=== PATIENT | female | born 1955 | race Caucasian/White ===

== ENCOUNTER 2023-06-01 14:45 | Outpatient (AMB) | payer MEDICARE, SELFPAY ==
--- NOTE | 2023-06-01 15:02 | A.OFFVIS_ITS ---
Intake Intake Visit Reasons: COPD/Pulm Nodules Allergies Penicillins [PENICILLINS] Allergy (Unknown, Unverified 04/26/20 16:55) ITCHING HPI HPI Comments History of Present Illness Details The patient is here for pulmonary evaluation. The patient is a 68 year woman who is an active smoker with the history of COPD and also pulmonary nodules. Apparently the patient was evaluated I believe to the lung cancer screening program back in 2019 in the beginning of the pandemic and she had pulmonary nodules noted. At some point the pulmonary nodules increase in size and the patient is referred to both Oncology and Pulmonary. She did undergo a PET scan. She was concern for the possibility of metastatic disease. Therefore she became depressed and she started smoking more cigarettes. The patient ultimately followed up with additional imaging studies and it appeared that allow the nodules had subsided and therefore this is less likely metastatic disease. Although the etiology still unclear. She did have recent imaging studies last CT scan was in the summer of 2022 although I do not have those reports. Will have to request or CT scans and ideally the films she in a CD that we can visualize the abnormalities. She also continues to smoke cigarettes. She is cutting down. She does fluctuate. We did talk about her COPD in her chronic bronchitis and how this is also contributing to her symptoms. The patient is willing to try nicotine patch at this time she knows not to smoke cigarettes while on the nicotine patch. She also has a history of sleep apnea. The patient did have a CPAP in the past. She does have fatigue during the daytime and daytime drowsiness. Will be reasonable to order a sleep study at this time to better address her underlying degree of sleep apnea in view of her daytime drowsiness and her cardiovascular risk factors. [facility] Medical History (Updated 06/01/23 @ 22:50 by Kenney Saini MD) Thyroid cancer ANA (obstructive sleep apnea) Smoking Pulmonary nodules COPD (chronic obstructive pulmonary disease) Review of Systems Const Reports daytime sleepiness, Reports difficulty sleeping, Denies fever(s) and Reports snoring Eyes Reports no additional complaints ENT Reports nasal congestion Card Denies chest pain and Reports dyspnea on exertion Resp Reports cough, Reports dyspnea on exertion, Reports snoring and Denies wheezing GI Reports no additional complaints Musc Reports no additional complaints Skin/Breast Denies rash Neuro Reports no additional complaints Psych Reports abnormal sleep pattern Narayan/Lymph Denies lymphadenopathy Aller/Immun Denies wheezing Physical Exam Const General: comfortable HEENT Head: Yes normocephalic Neck Neck: Yes supple Chest Chest palpation & inspection: normal inspection of the chest Resp Effort & Inspection: normal respiratory effort and prolonged expiratory phase Auscultation: diminished lung sounds Cardio Heart sounds: S1 normal heart sound present and S2 normal heart sound present GI Palpation (GI): Soft to palpation Skin General skin exam: no rashes or lesions noted Extrem General: Yes no clubbing, cyanosis or edema Assessment & Plan Assessment & Plan (1) COPD (chronic obstructive pulmonary disease): Code(s): J44.9 - Chronic obstructive pulmonary disease, unspecified Qualifiers: COPD type: chronic bronchitis Chronic bronchitis type: simple Qualified Code(s): J41.0 - Simple chronic bronchitis (2) Pulmonary nodules: Code(s): R91.8 - Other nonspecific abnormal finding of lung field (3) Smoking: Code(s): F17.200 - Nicotine dependence, unspecified, uncomplicated (4) ANA (obstructive sleep apnea): Code(s): G47.33 - Obstructive sleep apnea (adult) (pediatric) Plan requesting CT chest and PET scan images from [facility] Start Airduo (goodrx) JOVITA as needed Home PSG tobacco cessation: nicotene patch 14mg F/U 2-3 months Medications: New nicotine (Nicoderm CQ) 1 patch transdermal DAILY 28 days 28 ea 5RF fluticasone propion-salmeterol 113-14 mcg/actuation (AirDuo RespiClick) 1 inh inhalation Q12H 30 days 1 ea 11RF Coding Level of Care Code New Pt Level 4 (10823) Diagnoses Simple chronic bronchitis J41.0 COPD type: chronic bronchitis Chronic bronchitis type: simple Pulmonary nodules R91.8 Smoking F17.200 ANA (obstructive sleep apnea) G47.33 Time Spent (min) 45
== END 2023-06-01 15:44 | disposition home or self-care (01) ==
PROVIDERS: PCP Nurse Practitioner Family; Referring Provider Physician Assistant; Visit Provider Hospitalist
DX: J41.0 Simple chronic bronchitis (principal); R91.8 Other nonspecific abnormal finding of lung field; F17.200 Nicotine dependence, unspecified, uncomplicated; G47.33 Obstructive sleep apnea (adult) (pediatric)
CPT/HCPCS: 99204

== ENCOUNTER → 2023-06-01 14:45 | Outpatient (BNVA) | payer OTHER, MEDICARE, SELFPAY | PROVIDERS: PCP Nurse Practitioner Family; Visit Provider Hospitalist ==

== ENCOUNTER 2023-08-11 13:57 | Outpatient (AMB) | payer OTHER, SELFPAY ==
--- NOTE | 2023-08-11 14:36 | MHC.OFFVIS ---
Intake Vital Signs 08/11/23 14:40 Height 5 ft 3 in Weight 110 lb BMI 19.5 Pulse 50 Pulse Source Pulse Oximeter Pulse Oximetry (%) 95 Oxygen Delivery Method Room Air Intake Visit Reasons: COPD/Pulm Nodules Soaking Room Operator Required: No Allergies Penicillins [PENICILLINS] Allergy (Unknown, Unverified 08/11/23 14:36) ITCHING HPI HPI Comments History of Present Illness Details The patient is a 68 year woman who is an active smoker with the history of COPD and also pulmonary nodules. Apparently the patient was evaluated I believe to the lung cancer screening program back in 2019 in the beginning of the pandemic and she had pulmonary nodules noted. At some point the pulmonary nodules increase in size and the patient is referred to both Oncology and Pulmonary. She did undergo a PET scan. She was concern for the possibility of metastatic disease. Therefore she became depressed and she started smoking more cigarettes. The patient ultimately followed up with additional imaging studies and it appeared that allow the nodules had subsided and therefore this is less likely metastatic disease. Although the etiology still unclear. She did have recent imaging studies last CT scan was in the summer of 2022 although I do not have those reports. Will have to request or CT scans and ideally the films she in a CD that we can visualize the abnormalities. She also continues to smoke cigarettes. She is cutting down. She does fluctuate. We did talk about her COPD in her chronic bronchitis and how this is also contributing to her symptoms. The patient is willing to try nicotine patch at this time she knows not to smoke cigarettes while on the nicotine patch. She also has a history of sleep apnea. The patient did have a CPAP in the past. She does have fatigue during the daytime and daytime drowsiness. Will be reasonable to order a sleep study at this time to better address her underlying degree of sleep apnea in view of her daytime drowsiness and her cardiovascular risk factors. 08/11/2023 the patient is here for a pulmonary follow-up visit. Overall the patient is doing well from a pulmonary standpoint. She does complaint of significant lower extremity pain and Courtney horses. I did explain to her that it could be medication related such as beta agonists findings of a her inhalers can result in potassium chips that can result in muscle spasms. She sometimes twitches overt sometimes uses lab Trelegy or Breo that she may have left over. I did advise her to hold all meds for we can see there is any improvement in her symptoms. Otherwise if she does need to take the inhaler she can try potassium rich foods such as orange or bananas to see if this provides some relief. If not she can also ask her primary care doctor about other medications that she takes such as her Lipitor that can also cause muscle discomfort. The patient did have a CT scan of the chest to the lung cancer screening program which we personally reviewed. It appears that she has pulmonary nodules but the largest nodules actually decreased in size which is reassuring. Her rads score was read as to which is reassuring. She has multiple nodules but they are stable and show have a follow-up CT scan in a year's time. This is concerning to her because at 1 point she was told she had metastatic disease and she was very concerned about that. I did reassure that does not appear to be any worsening of the nodules. She still continues to smoke cigarettes. She does have a quit date and she is hoping to quit altogether. I did encourage her to do so specially with her ongoing symptoms. [facility] Medical History (Updated 08/11/23 @ 20:39 by Kenney Saini MD) Thyroid cancer ANA (obstructive sleep apnea) Smoking Pulmonary nodules COPD (chronic obstructive pulmonary disease) Social History (Updated 08/11/23 @ 14:42 by LUCINA Summers) Patient Tobacco Use Status: Current everyday Tobacco user Tobacco use type: Cigarette Review of Systems Const Reports daytime sleepiness, Reports difficulty sleeping, Denies fever(s) and Reports snoring Eyes Reports no additional complaints ENT Reports nasal congestion Card Denies chest pain and Reports dyspnea on exertion Resp Reports cough, Reports dyspnea on exertion, Reports snoring and Denies wheezing GI Reports no additional complaints Musc Reports no additional complaints Skin/Breast Denies rash Neuro Reports no additional complaints Psych Reports abnormal sleep pattern Narayan/Lymph Denies lymphadenopathy Aller/Immun Denies wheezing Physical Exam Vital Signs: Last Vital Signs Pulse 50 08/11/23 14:40 Pulse Ox 95 08/11/23 14:40 Oxygen Delivery Method Room Air 08/11/23 14:40 BMI result Body Mass Index 19.5 Const General: comfortable HEENT Head: Yes normocephalic Neck Neck: Yes supple Chest Chest palpation & inspection: normal inspection of the chest Resp Effort & Inspection: normal respiratory effort and prolonged expiratory phase Auscultation: diminished lung sounds Cardio Heart sounds: S1 normal heart sound present and S2 normal heart sound present GI Palpation (GI): Soft to palpation Skin General skin exam: no rashes or lesions noted Extrem General: Yes no clubbing, cyanosis or edema Immunizations pneumoc 20-cherry conj-dip cr(PF) 0.5 mL IM syringe Performing Provider: Kenney Saini MD Performing Location: [facility] Administered by: Quiana Chew LPN on 08/11/23 15:09 Dose Route Admin Location Dispensed Lot Number Expiration Date [employer] 0.5 mL IM Left Deltoid 0.5 mL [id number] 03/09/24 7452-2720-98 [employer]/PFIZER VIS Given Date VIS Provided VIS Publication Date 08/11/23 Single Vaccine 22 Eligibility Eligibility Date Funding Source Not [facility] Eligible 08/11/23 Private Assessment & Plan Assessment & Plan (1) COPD (chronic obstructive pulmonary disease): Code(s): J44.9 - Chronic obstructive pulmonary disease, unspecified Qualifiers: COPD type: chronic bronchitis Chronic bronchitis type: simple Qualified Code(s): J41.0 - Simple chronic bronchitis (2) Pulmonary nodules: Comment: 2022-LDCT RADS 2 Code(s): R91.8 - Other nonspecific abnormal finding of lung field (3) Smoking: Code(s): F17.200 - Nicotine dependence, unspecified, uncomplicated (4) ANA (obstructive sleep apnea): Code(s): G47.33 - Obstructive sleep apnea (adult) (pediatric) Plan holding Airduo (goodrx), monitor muscle spasms. If symptoms persists, needs to have an evaluation from her PCP regarding the muscle pain and muscle spasms JOVITA as needed Home PSG tobacco cessation: nicotene patch 14mg LDCT 04/24/2023 RADS 2 F/U 6 months Orders: Orders Pneumococcal 20 Immunization Today Z23 - Encounter for immunization Coding Level of Care Code Est Pt Level 4 (24938) Diagnoses Simple chronic bronchitis J41.0 COPD type: chronic bronchitis Chronic bronchitis type: simple Pulmonary nodules R91.8 Smoking F17.200 ANA (obstructive sleep apnea) G47.33 Time Spent (min) 18
[2023-08-11 14:40] VITALS: PULSE 50; O2SAT 95; BMI 19.5
== END 2023-08-11 15:09 | disposition home or self-care (01) ==
PROVIDERS: PCP Nurse Practitioner Family; Visit Provider Hospitalist
DX: J41.0 Simple chronic bronchitis (principal); R91.8 Other nonspecific abnormal finding of lung field; F17.200 Nicotine dependence, unspecified, uncomplicated; G47.33 Obstructive sleep apnea (adult) (pediatric)
CPT/HCPCS: 99214

== ENCOUNTER → 2023-08-11 13:57 | Outpatient (BNVA) | payer OTHER, SELFPAY | PROVIDERS: PCP Nurse Practitioner Family; Visit Provider Hospitalist | DX: J41.0 Simple chronic bronchitis (principal); R91.8 Other nonspecific abnormal finding of lung field; G47.33 Obstructive sleep apnea (adult) (pediatric); F17.200 Nicotine dependence, unspecified, uncomplicated; Z23 Encounter for immunization | CPT/HCPCS: 90471; 90677 ==

== ENCOUNTER 2024-01-11 19:52 | Emergency (ER) | payer OTHER, SELFPAY ==
--- NOTE | ~2024-01-11 | CT_ITS ---
EXAMINATION: CT ABDOMEN AND PELVIS WITHOUT CONTRAST CLINICAL INFORMATION: Right middle back pain/flank pain. COMPARISON: MRI scan of the abdomen dated 06/28/2015. TECHNIQUE: Multidetector volumetric imaging was performed from the superior aspect of the liver through the pubic symphysis. Sagittal and coronal reformatted images were obtained on the technologist workstation. This CT examination was performed using dose optimization techniques as appropriate, variously including the following: *Automated exposure control *Adjustment of mA and/or kV according to patient size (this includes techniques or standardized protocols for targeted exams where dose is matched to indication/reason for exam; i.e. extremities or head) *Use of iterative reconstruction technique DLP: 284.03 mGy-cm. FINDINGS: LUNG BASES: There is a 4 mm solid noncalcified nodules seen in the inferior lingula (series 4, image 16). No additional lung nodules seen. Minimal scattered atelectatic changes noted in the lung bases bilaterally. LIVER, GALLBLADDER, AND BILIARY TREE: Elongated right lobe of the liver is seen, possibly due to a Bao's lobe variant. The liver is overall normal in size and attenuation. No focal hepatic lesion on noncontrast imaging. No biliary ductal dilatation is present. The gallbladder is unremarkable with no evidence of radiopaque gallstones, gallbladder wall thickening, or obvious pericholecystic inflammatory changes. PANCREAS: Diffusely atrophic and otherwise unremarkable with no evidence of pancreatic ductal dilatation, peripancreatic fat stranding/edema or focal mass on noncontrast imaging. SPLEEN: Unremarkable. ADRENAL GLANDS: There is a 1.8 x 1.2 cm low-attenuation mass in the right adrenal gland (series 3, image 16) with mean attenuation values of -17 Hounsfield units, consistent with a benign lipid rich adenoma. There is a 1.6 x 1.1 cm left adrenal mass with mean attenuation values of 5.2 Hounsfield units, consistent with a lipid rich adenoma. KIDNEYS AND URETERS: The kidneys are normal in size, shape, and attenuation. No hydronephrosis, hydroureter, or defined calculi seen. There is subtle faint hyperdensity seen in the calyces of the left kidney, perhaps due to concentrated urine or faint nephrocalcinosis. No perinephric stranding. There is a 0.6 cm circumscribed low-attenuation mass in the lower pole of the right kidney with mean attenuation values of 1.3 Hounsfield units, consistent with a benign cyst, which warrants no additional imaging follow-up. BLADDER: Decompressed and suboptimally assessed, but grossly unremarkable. PELVIC VISCERA: Uterus anteverted and anteflexed with scattered partially calcified mass is seen, consistent with uterine fibroids. Small amount of gas seen in the vagina, likely due to exogenous introduction. There is no obvious fistulous tract to the adjacent bowel. GASTROINTESTINAL TRACT: Rectal fecal impaction is seen with prominent distention of the rectum. No significant surrounding fat stranding or edema is seen to suspect stercoral colitis. A few scattered sigmoid colonic diverticula are seen with no evidence of acute diverticulitis. Moderate stool burden in the right colon and proximal transverse colon. Mild diffuse fluid distention of the small bowel loops is seen with minimal hyperemia in the mesentery. No mesenteric adenopathy seen. Findings are nonspecific but may represent an acute enteritis. No evidence of bowel obstruction or perforation. The appendix is not seen, but no focal right lower quadrant inflammatory process is appreciated. ABDOMINAL WALL: No significant hernia is appreciated. LYMPH NODES, VASCULAR: No significant abdominal or pelvic adenopathy. There is severe atherosclerotic calcification of the aorta and moderate to severe calcifications of the iliofemoral vessels. No periaortic collection.. OSSEOUS STRUCTURES: Mild convex left thoracolumbar scoliosis with severe degenerative disc disease at the lumbosacral junction and mild to moderate degenerative disc disease at the remaining lumbar levels. Mild vertebral spondylosis throughout the thoracolumbar spine. Moderate degenerative changes in the right hip joint and mild degenerative changes in the left hip joint. No suspicious bone findings. CT/CT abdomen pelvis wo IV con IMPRESSION: * No evidence of nephrolithiasis or obstructive uropathy. As discussed above, there is slight hyperdensity to the calyces in the left kidney, perhaps related to concentrated urine versus subtle mild chondrocalcinosis. * Rectal fecal impaction with no evidence of stercoral colitis. Moderate stool burden in the right colon and proximal transverse colon. Mild diffuse fluid distention of the small bowel loops with minimal hyperemia in the mesentery. No evidence of bowel obstruction or perforation. Findings are nonspecific but may represent an acute enteritis. Clinical correlation requested. * Incidental 4 mm solid noncalcified nodule in the inferior lingula. According to the UPDATED 2017 Fleischner Society recommendations, the advised follow-up imaging for solid nodules <6 mm in the middle/lower lobes is no routine follow up. * Bilateral adrenal masses, consistent with benign lipid rich adenomas, which warrant no specific imaging follow-up. * Fibroid uterus. * Moderate to severe atherosclerotic vascular disease.
--- NOTE | ~2024-01-11 | XR_ITS ---
EXAMINATION: XR CHEST CLINICAL INFORMATION: Pain. COMPARISON: None available. TECHNIQUE: Frontal and lateral views of the chest were obtained. FINDINGS: The heart, great vessels, pulmonary vasculature and mediastinum are normal. There is hyperinflation, with diaphragmatic flattening and increase in the retrosternal clear space. No infiltrate, effusion or pneumothorax is seen. There is no acute osseous abnormality. XR/XR chest 2V IMPRESSION: 1. No focal infiltrate or congestive heart failure are seen. 2. There is hyperinflation, which can be associated with COPD.
[2024-01-11 20:05] VITALS: BP 133/85; PULSE 56; RESP 20; TEMP 36.5; O2SAT 94; BMI 18.2
--- NOTE | 2024-01-11 20:10 | ECG_ITS ---
Test Reason : SOB Blood Pressure : / mmHG Vent. Rate : 052 BPM Atrial Rate : 052 BPM P-R Int : 142 ms QRS Dur : 088 ms QT Int : 438 ms P-R-T Axes : 074 039 066 degrees QTc Int : 407 ms Sinus bradycardia Otherwise normal ECG When compared with ECG of 13-SEP-2011 04:12, Non-specific change in ST segment in Anterior leads QT has shortened Referred By: Migue Romero Electronically Signed By:ESTEBAN TRINIDAD MD
--- NOTE | 2024-01-11 20:10 | ED_ITS ---
HPI - General Adult General Chief complaint: Dyspnea Stated complaint: sob pain in abd ,back Time Seen by Provider: 01/12/24 04:11 Source: patient Mode of arrival: ambulatory Limitations: no limitations History of Present Illness ED Provider: Dr. Monica Fernando HPI narrative: Patient comes to the emergency room complaining of 3 days of rib pain on the right side, back pain, patient complaining of dyspnea on exertion which is chronic for her. Patient states that the pain in the back has been getting much worse over the last few days. Related Data Home Medications ?Medication ?Instructions ?Recorded ?Confirmed atorvastatin 20 mg tablet 20 mg PO BEDTIME 08/11/23 famotidine 40 mg tablet 40 mg PO BID 08/11/23 labetalol 300 mg tablet 300 mg PO BID 08/11/23 losartan 100 mg tablet 100 mg PO DAILY 08/11/23 nifedipine 90 mg tablet,extended 90 mg PO DAILY 08/11/23 release sertraline 100 mg tablet 100 mg PO DAILY 08/11/23 Previous Rx's ?Medication ?Instructions ?Recorded fluticasone 113 mcg-salmeterol 14 1 inh inhalation Q12H 30 days #1 ea 06/01/23 mcg/actuation breath activated powdr (AirDuo RespiClick) nicotine 14 mg/24 hr daily 1 patch transdermal DAILY 28 days 06/01/23 transdermal patch (Nicoderm CQ) #28 ea prednisone 20 mg tablet 40 mg (2 x 20 mg) PO DAILY 5 days 01/12/24 #10 tabs Allergies Allergy/AdvReac Type Severity Reaction Status Date / Time Penicillins [PENICILLINS] Allergy Unknown ITCHING Verified 01/11/24 20:08 Review of Systems 2 Review of Systems: Constitutional : No Weight loss, No Fever, No Chills, No Night Sweats, No Fatigue, No Malaise ENT/Mouth : No Hearing loss, No Ear Pain, No Nasal Congestion, No Sinus Pain, No Hoarseness, No sore throat, No Rhinorrhea, No Swallowing Difficulty Eyes: No Eye Pain, No Swelling, No Redness, No Foreign Body, No Discharge, No Vision Changes Cardiovascular : No Chest Pain, No SOB, No Dyspnea on Exertion, No Orthopnea, No Edema, No Palpitations Respiratory : No Cough, No Sputum, No Wheezing, No Smoke Exposure, No Dyspnea Gastrointestinal : No Nausea, No Vomiting, No Diarrhea, No Constipation, No abdominal Pain, No Hematochezia, No Melena Genitourinary : no irregular bleeding, No Dysuria, No Urinary Frequency, No Hematuria, No Urinary Incontinence, No Urgency, No Flank Pain, No Urinary Flow Changes, No Hesitancy Musculoskeletal : Complaining of back pain Skin : No Skin Lesions, No rash Neuro : No Weakness, No Numbness, No Paresthesias, No Loss of Consciousness, No Dizziness, No Headache Psych : No Anxiety/Panic, No Depression, No SI/HI/AH/VH, No Social Issues, Heme/Lymph: No Bruising, No Bleeding,No Lymphadenopathy Endocrine : No Polyuria, No Polydipsia, No Temperature Intolerance [facility] Past Medical History Medical History Thyroid cancer ANA (obstructive sleep apnea) Smoking Pulmonary nodules COPD (chronic obstructive pulmonary disease) Social History Social History (Updated 08/11/23 @ 14:42 by LUCINA Summers) Patient Tobacco Use Status: Current everyday Tobacco user Tobacco use type: Cigarette Smoked in Last 30 Days: No Use of substances other than those prescribed or required for medical reasons: No Advance Directives: No Advance Directives Information Provided: Yes Physical Exam ED Vital Signs: Vital Signs - 24 hr 01/11/24 20:05 01/12/24 01:00 01/12/24 05:17 Temperature 97.7 F 97.7 F Pulse Rate 56 53 56 Respiratory Rate 20 18 18 Blood Pressure 133/85 156/78 H Pulse Oximetry 94 93 Oxygen Delivery Method Room Air Room Air 01/12/24 06:08 01/12/24 10:35 Temperature 98.6 F 98.3 F Pulse Rate 53 75 Respiratory Rate 16 18 Blood Pressure 155/81 H 134/102 H Pulse Oximetry 89 L 92 Oxygen Delivery Method Room Air Room Air BMI result Body Mass Index 18.2 Const Other: Appearance: Alert. Oriented X3. No acute distress. Eyes: Pupils equal, round and reactive to light. ENT: Pharynx normal. Neck: Normal inspection. Neck supple. No lymph nodes noted. No crepitus CVS: Normal heart rate and rhythm. Pulses normal. Normal S1 and S2 Respiratory: No respiratory distress. Breath sounds normal. No Wheezing. No rales Abdomen: Soft and nontender. No rigidity. No distention. Skin: Skin warm and dry. Normal skin color. Normal skin turgor. Back: Pain to palpation on the right flank, right middle back Extremities: No lower extremity edema. No Lacerations. No Rash Neuro: Oriented X 3. No motor deficit. No sensory deficit. Moving all extremities. No slurred speech. CN 2 through 12 grossly intact Psych: calm, cooperative, normal affect Course Course Course Narrative: RME, this is a rapid medical exam performed by Shaquille Romero please refer to primary provider for complete H&P- 68-year-old female presents for evaluation of right chest pain as well as shortness of breath. The patient does have a history of COPD, in triage her vital signs are within normal limits. Plan for workup including labs, EKG, chest x-ray. Reevaluation(s) Reevaluation #1: 91% on RA has no complaints, sleeping, woken up work up negative other than constipation and fecal impaction will admin lactulose and attempt fecal disimpaction with enema COMPA 927am Reevaluation #2: patient had large BM - 92% on RA, appears comfortable no labored breathing will instruct OTC stool regimen and then given her dry cough and need for neb will start on prednisone. she moves around the stretcher easily without issue. Medications Administered Discontinued Medications Generic Name Dose Route Start Last Admin Trade Name Freq PRN Reason Stop Dose Admin Albuterol Sulfate 2.5 mg/ 0 mg 01/12/24 04:42 01/12/24 05:16 Albuterol/Ipratropium 3 ml INHALE 01/12/24 04:43 2.5 dose ONCE ONE Administration Ketorolac Tromethamine 30 mg 01/12/24 04:30 01/12/24 04:41 Ketorolac Tromethamine 30 Mg/Ml Vial IVPUSH 01/12/24 04:31 30 mg ONCE ONE Administration Lactulose 20 gm 01/12/24 09:12 01/12/24 09:25 Lactulose 20 Gm/30 Ml Solution PO 01/12/24 09:13 20 gm ONCE ONE Administration Methylprednisolone Sodium Succinate 125 mg 01/12/24 04:29 01/12/24 04:41 Methylprednisolone Sod Succ 125 Mg/2 Ml Vial IVPUSH 01/12/24 04:30 125 mg ONCE ONE Administration Sodium Biphosphate/Sodium Phosphate 133 ml 01/12/24 09:12 01/12/24 10:09 Sodium Phosphate,[place]-Dibasic 133 Ml Enema NC 01/12/24 09:13 133 ml ONCE ONE Administration Medical Decision Making Medical Decision Making [facility] Narrative: -my interpretation of labs, normal hematology, normal chemistry, troponin negative, BNP negative. Lipase negative -my interpretation of chest x-ray: Within normal limits, no infiltrates, no rib fractures -my interpretation of EKG, sinus bradycardia, heart rate 62, no ST segment depression or elevation, no T-wave inversion, QTC 407 -CT scan of the abdomen pelvis pending. -patient reports history of nephrolithiasis which required surgery. -patient was due for a nebulization treatment, provided with albuterol. Also, patient was given Solu-Medrol. Patient feeling better and tolerated the CT scan. -sign-out given to my colleague Dr. Hoyt, CT scan pending Differential Diagnosis Differential Diagnoses: The differential diagnosis associated with the presentation includes (Costochondritis, pneumonia, pleural effusion) Admission/Observation Consideration of admission/observation: Escalation of care including admission/observation considered Lab Data [facility] Lab Attestation statement: I reviewed the patient's lab results. 01/11/24 20:25 01/11/24 20:25 Labs: Lab Results 01/11/24 01/12/24 Range/Units 20:25 04:36 WBC 7.2 (4.8-10.8) X10*3/uL RBC 4.35 (4.20-5.50) X10*6/uL Hgb 14.8 (12.0-16.0) g/dl Hct 41.9 (37.0-47.0) % MCV 96.3 (80.0-98.0) fL MCH 34.0 H (27.0-33.0) pg MCHC 35.3 H (31.0-35.0) g/dl RDW 13.3 (11.0-16.0) % Plt Count 231 (160-400) X10*3/uL MPV 10.4 (9.4-12.3) fL Immature Gran % (Auto) 0.1 (0.0-0.4) % Neut % (Auto) 61.4 (45-73) % Lymph % (Auto) 25.2 (20-40) % [place] % (Auto) 11.4 H (2-11) % Eos % (Auto) 1.1 (0-4) % Baso % (Auto) 0.8 (0-2) % Lymph # (Auto) 1.8 (1.2-4.9) X10*3/uL [place] # (Auto) 0.8 (0.1-1.2) X10*3/uL Eos # (Auto) 0.1 (0.0-0.4) X10*3/uL Baso # (Auto) 0.1 (0.0-0.2) X10*3/uL Abs Immat Gran (auto) 0.01 (0.00-0.03) X10*3/uL Absolute Neuts (auto) 4.4 (2.0-8.3) x10*3/uL Absolute Nucleated RBC 0.000 (0.0-0.012) X10*3/uL Nucleated RBC % (auto) 0.0 (0.0-0.2) /100WBC PT 10.2 L (11.1-13.3) SEC INR 0.8 L (0.9-1.1) Sodium 140 (135-145) mmol/L Potassium 4.2 (3.3-5.1) mmol/L Chloride 105 (96-108) mmol/L Carbon Dioxide 26 (22-29) mmol/L Anion Gap 13 (12-20) BUN 12 (9-16) mg/dL Creatinine 0.72 (0.5-1.4) mg/dL Estim Creat Clear Calc 53.6 Estimated GFR > 60 Random Glucose 109 (60-115) mg/dL Calcium 9.6 (8.4-10.2) mg/dL Total Bilirubin 0.4 (0.0-1.0) mg/dL AST 17 (5-31) U/L ALT 13 (0-31) U/L Alkaline Phosphatase 74 (39-117) U/L Troponin I High Sens 3.0 (<3.5-17.0) ng/L B-Natriuretic Peptide 59 (<100) pg/mL Total Protein 7.0 (6.5-8.0) g/dL Albumin 4.3 (3.5-5.0) g/dL Lipase 16 (8-78) U/L Urine Color Dark Yellow Urine Appearance Clear Urine pH 6.0 (5.0-9.0) Ur Specific [place] 1.025 (1.005-1.025) Urine Protein Negative (Neg-Trace) mg/dL Urine Glucose (UA) Negative (Negative) mg/dL Urine Ketones Trace (Negative) mg/dL Urine Blood Negative (Negative) Urine Nitrite Negative (Negative) Ur Leukocyte Esterase Small (1+) H (Negative) Urine RBC 0-2 (0-2) /HPF Urine WBC 0-5 (0-5) /HPF Ur Squamous Epith Cells 0-2 (0-2) /HPF Calcium Oxalate Crystal Present Urine Bacteria None Seen (None Seen) Hyaline Casts 0-2 (0-2) /LPF Independent Interpretation I performed an independent interpretation of an: Plain X-Ray Radiology Impression Discussion of test interpretation with radiology: I have reviewed the radiologist's reading. Radiologist Impression: The heart, great vessels, pulmonary vasculature and mediastinum are normal. There is hyperinflation, with diaphragmatic flattening and increase in the retrosternal clear space. No infiltrate, effusion or pneumothorax is seen. There is no acute osseous abnormality. XR/XR chest 2V IMPRESSION: 1. No focal infiltrate or congestive heart failure are seen. 2. There is hyperinflation, which can be associated with COPD. Critical Care Time Critical Care Time Critical Care Time: Yes Total Critical Care Time: 35 Attestation: I have personally provided critical care time. Time includes review of lab data, radiology results, discussion with consultants, and monitoring for potential decompensation. Intervention performed as documented. Discharge Plan Discharge Clinical Impression: Musculoskeletal back pain, Chronic lung disease, Fecal impaction, Acute constipation Patient Disposition: Home, Self-Care Instructions: Constipation (ED), Fecal Impaction (ED), Chronic Lung Disease and Infection Prevention (ED) Additional Instructions: no acute findings on labs, chest xray or CT scan of abdomen other than constipation and stool ball in rectum please start on miralax daily 17gm daily senna 8.6mg nightly docusate 100mg twice a day for the next 10 days follow up with your doctor Prescriptions: New prednisone 20 mg tablet 40 mg PO DAILY 5 Days Qty: 10 0RF No Action fluticasone propion-salmeterol [AirDuo RespiClick] 113-14 mcg/actuation aerosol powdr breath activated 1 inh inhalation Q12H 30 Days Qty: 1 11RF nicotine [Nicoderm CQ] 14 mg/24 hr patch 24 hour 1 patch transdermal DAILY 28 Days Qty: 28 5RF nifedipine 90 mg tablet extended release 90 mg PO DAILY labetalol 300 mg tablet 300 mg PO BID famotidine 40 mg tablet 40 mg PO BID atorvastatin 20 mg tablet 20 mg PO BEDTIME losartan 100 mg tablet 100 mg PO DAILY sertraline 100 mg tablet 100 mg PO DAILY Print Language: Wolof
[2024-01-11 20:30] LABS: MANUAL DIFF FLAG NO
[2024-01-11 20:34] LABS: Basophils Absolute Auto 0.1 X10*3/uL (0.0-0.2); Basophils Percent Auto 0.8 % (0-2); Eosinophils Absolute Auto 0.1 X10*3/uL (0.0-0.4); Eosinophils Percent Auto 1.1 % (0-4); Hematocrit 41.9 % (37.0-47.0); Hemoglobin 14.8 g/dl (12.0-16.0); Imm Gran Abs Auto 0.01 X10*3/uL (0.00-0.03); Imm Gran Pct Auto 0.1 % (0.0-0.4); Lymphocytes Absolute Auto 1.8 X10*3/uL (1.2-4.9); Lymphocytes Percent Auto 25.2 % (20-40); Mean Corpuscular HGB Conc 35.3 g/dl (31.0-35.0); Mean Corpuscular Volume 96.3 fL (80.0-98.0); Mean Platelet Volume 10.4 fL (9.4-12.3); Monocytes Absolute Auto 0.8 X10*3/uL (0.1-1.2); Monocytes Percent Auto 11.4 % (2-11); Neutrophils Absolute Auto 4.4 x10*3/uL (2.0-8.3); Neutrophils Percent Auto 61.4 % (45-73); Platelet Count 231 X10*3/uL (160-400); Red Blood Count 4.35 X10*6/uL (4.20-5.50); Red Cell Distribution Width 13.3 % (11.0-16.0); White Blood Count 7.2 X10*3/uL (4.8-10.8)
[2024-01-11 20:38] LABS: INTERNATIONAL NORM RATIO 0.8 (0.9-1.1); Prothrombin Time 10.2 SEC (11.1-13.3)
[2024-01-11 20:47] LABS: Alanine Aminotransferase 13 U/L (0-31); Albumin Level 4.3 g/dL (3.5-5.0); Alkaline Phosphatase 74 U/L (39-117); Anion Gap 13 (12-20); Aspartate Amino Transferase 17 U/L (5-31); Bilirubin Total 0.4 mg/dL (0.0-1.0); Blood Urea Nitrogen 12 mg/dL (9-16); Calcium 9.6 mg/dL (8.4-10.2); Carbon Dioxide 26 mmol/L (22-29); Chloride 105 mmol/L (96-108); Creatinine Clr Calc Pharmacy 53.6; Estimated Glomerular Filt Rate > 60; Glucose Random 109 mg/dL (60-115); Lipase 16 U/L (8-78); Potassium 4.2 mmol/L (3.3-5.1); Sodium 140 mmol/L (135-145)
[2024-01-11 20:52] LABS: B Type Natriuretic Peptide 59 pg/mL (<100)
[2024-01-12 01:00] VITALS: BP 156/78; PULSE 53; RESP 18; TEMP 36.5; O2SAT 93
--- NOTE | 2024-01-12 02:25 | PC.NURSE ---
pt in room waiting to be seen by ED provider. resting comfortably on stretcher, in no apparent distress. call oakes within reach
[2024-01-12] MEDS: methylPREDNISolone Sod Succ 125 MG/2 ML VIAL IVPUSH (04:41)
[2024-01-12] MEDS: Ketorolac Tromethamine 30 MG/ML VIAL IVPUSH (04:41)
[2024-01-12 04:44] LABS: Appearance Urine Clear; Color Urine Dark Yellow; Glucose Urine UA Negative (Negative); Leukocyte Esterase Urine Small (1+) (Negative); Nitrite Urine Negative (Negative); Specific Gravity - Urine 1.025 (1.005-1.025); UMIC TRIGGER UACC YES; Urine Blood Negative (Negative); Urine Ketones Trace mg/dL (Negative); Urine Protein Negative (Neg-Trace)
[2024-01-12 04:55] LABS: Bacteria Urine None Seen (None Seen); Calcium Oxalate Crystals Urine Present; Hyaline Casts Urine 0-2 /LPF (0-2); RBC Urine 0-2 /HPF (0-2); Squamous Epithelial Cell Urine 0-2 /HPF (0-2); UACC Culture Trigger YES; WBC Urine 0-5 /HPF (0-5)
[2024-01-12] MEDS: Albuterol Sulfate 2.5 MG, Albuterol/Iprat 2.5/0.5MG 3 ML 3 ML INHALE (05:16)
[2024-01-12 05:17] VITALS: PULSE 56; RESP 18; O2SAT 93
[2024-01-12 06:08] VITALS: BP 155/81; PULSE 53; RESP 16; TEMP 37; O2SAT 89
--- NOTE | 2024-01-12 06:20 | PC.NURSE ---
pt drops down to 86-89% O2 room air when laying down. MD Fernando aware. Pt in CT scan now. duoneb tx complete by RT.
[2024-01-12] MEDS: Lactulose 20 GM/30 ML SOLUTION PO (09:25)
[2024-01-12] MEDS: Sodium Phosphate,Mono-Dibasic 133 ML ENEMA PR (10:09)
[2024-01-12 10:35] VITALS: BP 134/102; PULSE 75; RESP 18; TEMP 36.8; O2SAT 92
[2024-01-12 11:26] VITALS: BP 115/61; PULSE 56; RESP 18; TEMP 36.8; O2SAT 93
== END 2024-01-12 11:27 | disposition home or self-care (01) ==
PROVIDERS: Emergency Medicine; Physician Assistant; Emergency Provider Emergency Medicine
DX: K59.00 Constipation, unspecified (principal); J98.4 Other disorders of lung; M54.9 Dorsalgia, unspecified; J44.9 Chronic obstructive pulmonary disease, unspecified
CPT/HCPCS: 36415; 71046; 74176; 80053; 81001; 83690; 83880; 84484; 85025; 85610; 87086; 93005; 94640; 96374; 96375; 99284; 99285; J1885; J2919

== ENCOUNTER → 2024-01-11 20:10 | Outpatient (BNV) | payer OTHER, SELFPAY | PROVIDERS: Emergency Provider Emergency Medicine; Visit Provider Internal Medicine Cardiovascular Disease | DX: R06.02 Shortness of breath (principal); R00.1 Bradycardia, unspecified | CPT/HCPCS: 93010 ==

== ENCOUNTER 2024-02-16 13:36 | Outpatient (AMB) | payer OTHER, SELFPAY ==
[2024-02-16 13:48] VITALS: BP 140/70; PULSE 65; O2SAT 94; BMI 18.0
--- NOTE | 2024-02-16 13:48 | MHC.OFFVIS ---
Vital Signs 02/16/24 13:48 Height 5 ft 3 in Weight 101 lb 6.602 oz BMI 18.0 BP 140/70 H Blood Pressure Location Lt brachial Position Sitting Pulse 65 Pulse Source Pulse Oximeter Pulse Oximetry (%) 94 Oxygen Delivery Method Room Air Intake Visit Reasons: COPD follow-up Tie Presser Required: No Allergies Penicillins [PENICILLINS] Allergy (Unknown, Verified 02/16/24 13:51) ITCHING HPI Comments Details: The patient is a 68 year woman who is an active smoker with the history of COPD and also pulmonary nodules. Apparently the patient was evaluated I believe to the lung cancer screening program back in 2019 in the beginning of the pandemic and she had pulmonary nodules noted. At some point the pulmonary nodules increase in size and the patient is referred to both Oncology and Pulmonary. She did undergo a PET scan. She was concern for the possibility of metastatic disease. Therefore she became depressed and she started smoking more cigarettes. The patient ultimately followed up with additional imaging studies and it appeared that allow the nodules had subsided and therefore this is less likely metastatic disease. Although the etiology still unclear. She did have recent imaging studies last CT scan was in the summer of 2022 although I do not have those reports. Will have to request or CT scans and ideally the films she in a CD that we can visualize the abnormalities. She also continues to smoke cigarettes. She is cutting down. She does fluctuate. We did talk about her COPD in her chronic bronchitis and how this is also contributing to her symptoms. The patient is willing to try nicotine patch at this time she knows not to smoke cigarettes while on the nicotine patch. She also has a history of sleep apnea. The patient did have a CPAP in the past. She does have fatigue during the daytime and daytime drowsiness. Will be reasonable to order a sleep study at this time to better address her underlying degree of sleep apnea in view of her daytime drowsiness and her cardiovascular risk factors. 08/11/2023 the patient is here for a pulmonary follow-up visit. Overall the patient is doing well from a pulmonary standpoint. She does complaint of significant lower extremity pain and Courtney horses. I did explain to her that it could be medication related such as beta agonists findings of a her inhalers can result in potassium chips that can result in muscle spasms. She sometimes twitches overt sometimes uses lab Trelegy or Breo that she may have left over. I did advise her to hold all meds for we can see there is any improvement in her symptoms. Otherwise if she does need to take the inhaler she can try potassium rich foods such as orange or bananas to see if this provides some relief. If not she can also ask her primary care doctor about other medications that she takes such as her Lipitor that can also cause muscle discomfort. The patient did have a CT scan of the chest to the lung cancer screening program which we personally reviewed. It appears that she has pulmonary nodules but the largest nodules actually decreased in size which is reassuring. Her rads score was read as to which is reassuring. She has multiple nodules but they are stable and show have a follow-up CT scan in a year's time. This is concerning to her because at 1 point she was told she had metastatic disease and she was very concerned about that. I did reassure that does not appear to be any worsening of the nodules. She still continues to smoke cigarettes. She does have a quit date and she is hoping to quit altogether. I did encourage her to do so specially with her ongoing symptoms. 02/16/2024 the patient is here for a pulmonary follow-up visit. Overall she is doing okay. She did have an episode Significant abdominal discomfort mainly in the right upper quadrant causing to have some difficulty breathing. She was starting to pant and she could not breathe and therefore she decided to go to the ER. She did have a CT scan of the abdomen. I did personally reviewed. No evidence of any pulmonary parenchymal disease to explain her symptoms. Although on exam she does have some guarding over the right upper voluntary guarding. Her LFTs were normal which is reassuring. No evidence of any gallstones or any cholecystitis on her CT scan of the abdomen. She will be following up with primary care doctor. In the meantime respiratory diamond patient is doing well. She is participating in lung cancer screening program and is due for CT scan the fall 2023. continues use respiratory inhalers as needed. We did go for brief walking oximetry because of shortness of breath and she was able to maintain a pulse ox in the mid 90s. Will go ahead and check an overnight oximetry to make sure she does not have any evidence of hypoxia at nighttime. [facility] Medical History Thyroid cancer ANA (obstructive sleep apnea) Smoking Pulmonary nodules COPD (chronic obstructive pulmonary disease) Social History (Updated 08/11/23 @ 14:42 by LUCINA Summers) Patient Tobacco Use Status: Current everyday Tobacco user Tobacco use type: Cigarette Review of Systems Const Reports daytime sleepiness, Reports difficulty sleeping, Denies fever(s) and Reports snoring Eyes Reports no additional complaints ENT Reports nasal congestion Card Denies chest pain and Reports dyspnea on exertion Resp Reports cough, Reports dyspnea on exertion, Reports snoring and Denies wheezing GI Reports as per HPI and Reports abdominal pain Musc Reports no additional complaints Skin/Breast Denies rash Neuro Reports no additional complaints Psych Reports abnormal sleep pattern Narayan/Lymph Denies lymphadenopathy Aller/Immun Denies wheezing Physical Exam Vital Signs: Last Vital Signs Pulse 65 02/16/24 13:48 BP 140/70 H 02/16/24 13:48 Pulse Ox 94 02/16/24 13:48 Oxygen Delivery Method Room Air 02/16/24 13:48 BMI result Body Mass Index 18.0 Const General: comfortable HEENT Head: Yes normocephalic Neck Neck: Yes supple Chest Chest palpation & inspection: normal inspection of the chest Resp Effort & Inspection: normal respiratory effort and prolonged expiratory phase Auscultation: diminished lung sounds Cardio Heart sounds: S1 normal heart sound present and S2 normal heart sound present GI Palpation (GI): Soft to palpation Skin General skin exam: no rashes or lesions noted Extrem General: Yes no clubbing, cyanosis or edema Assessment & Plan Assessment & Plan (1) COPD (chronic obstructive pulmonary disease): Code(s): J44.9 - Chronic obstructive pulmonary disease, unspecified Category: Medical Qualifiers: COPD type: chronic bronchitis Chronic bronchitis type: simple Qualified Code(s): J41.0 - Simple chronic bronchitis (2) Pulmonary nodules: Comment: 2022-LDCT RADS 2 Code(s): R91.8 - Other nonspecific abnormal finding of lung field Category: Medical (3) Smoking: Code(s): F17.200 - Nicotine dependence, unspecified, uncomplicated Category: Social Hx (4) ANA (obstructive sleep apnea): Code(s): G47.33 - Obstructive sleep apnea (adult) (pediatric) Category: Medical Plan holding Airduo (goodrx), monitor muscle spasms. If symptoms persists JOVITA as needed overnight oximetry on RA tobacco cessation: nicotene patch 14mg LDCT 04/24/2023 RADS 2 bowel regimen F/U 6 months Orders: Orders Overnight Pulse Oximetry Today J41.0 - Simple chronic bronchitis Coding Level of Care Code Est Pt Level 4 (40630) Diagnoses Simple chronic bronchitis J41.0 COPD type: chronic bronchitis Chronic bronchitis type: simple Pulmonary nodules R91.8 Smoking F17.200 ANA (obstructive sleep apnea) G47.33 Time Spent (min) 17
== END 2024-02-16 14:26 | disposition home or self-care (01) ==
PROVIDERS: PCP Nurse Practitioner Family; Visit Provider Hospitalist
DX: J41.0 Simple chronic bronchitis (principal); R91.8 Other nonspecific abnormal finding of lung field; F17.200 Nicotine dependence, unspecified, uncomplicated; G47.33 Obstructive sleep apnea (adult) (pediatric)
CPT/HCPCS: 99214

== ENCOUNTER → 2024-02-16 13:36 | Outpatient (BNVA) | payer OTHER, SELFPAY | PROVIDERS: PCP Nurse Practitioner Family; Visit Provider Hospitalist ==

== ENCOUNTER 2024-05-20 14:16 | Outpatient (AMB) | payer OTHER, SELFPAY ==
--- NOTE | 2024-05-20 14:34 | A.OFFVIS_ITS ---
Vital Signs 05/20/24 14:35 Height 5 ft 3 in Weight 103 lb BMI 18.2 BP 128/70 Blood Pressure Location Lt brachial Position Sitting Pulse 51 Pulse Source Pulse Oximeter Pulse Oximetry (%) 98 Oxygen Delivery Method Room Air Intake Visit Reasons: COPD follow-up Asparagus Cutter Required: No Allergies Penicillins [PENICILLINS] Allergy (Unknown, Verified 05/20/24 14:37) ITCHING HPI Comments Details: The patient is a 69 year woman who is an active smoker with the history of COPD and also pulmonary nodules. Apparently the patient was evaluated I believe to the lung cancer screening program back in 2019 in the beginning of the pandemic and she had pulmonary nodules noted. At some point the pulmonary nodules increase in size and the patient is referred to both Oncology and Pulmonary. She did undergo a PET scan. She was concern for the possibility of metastatic disease. Therefore she became depressed and she started smoking more cigarettes. The patient ultimately followed up with additional imaging studies and it appeared that allow the nodules had subsided and therefore this is less likely metastatic disease. Although the etiology still unclear. She did have recent imaging studies last CT scan was in the summer of 2022 although I do not have those reports. Will have to request or CT scans and ideally the films she in a CD that we can visualize the abnormalities. She also continues to smoke cigarettes. She is cutting down. She does fluctuate. We did talk about her COPD in her chronic bronchitis and how this is also contributing to her symptoms. The patient is willing to try nicotine patch at this time she knows not to smoke cigarettes while on the nicotine patch. She also has a history of sleep apnea. The patient did have a CPAP in the past. She does have fatigue during the daytime and daytime drowsiness. Will be reasonable to order a sleep study at this time to better address her underlying degree of sleep apnea in view of her daytime drowsiness and her cardiovascular risk factors. 08/11/2023 the patient is here for a pulmonary follow-up visit. Overall the patient is doing well from a pulmonary standpoint. She does complaint of significant lower extremity pain and Courtney horses. I did explain to her that it could be medication related such as beta agonists findings of a her inhalers can result in potassium chips that can result in muscle spasms. She sometimes twitches overt sometimes uses lab Trelegy or Breo that she may have left over. I did advise her to hold all meds for we can see there is any improvement in her symptoms. Otherwise if she does need to take the inhaler she can try potassium rich foods such as orange or bananas to see if this provides some relief. If not she can also ask her primary care doctor about other medications that she takes such as her Lipitor that can also cause muscle discomfort. The patient did have a CT scan of the chest to the lung cancer screening program which we personally reviewed. It appears that she has pulmonary nodules but the largest nodules actually decreased in size which is reassuring. Her rads score was read as to which is reassuring. She has multiple nodules but they are stable and show have a follow-up CT scan in a year's time. This is concerning to her because at 1 point she was told she had metastatic disease and she was very concerned about that. I did reassure that does not appear to be any worsening of the nodules. She still continues to smoke cigarettes. She does have a quit date and she is hoping to quit altogether. I did encourage her to do so specially with her ongoing symptoms. 02/16/2024 the patient is here for a pulmonary follow-up visit. Overall she is doing okay. She did have an episode Significant abdominal discomfort mainly in the right upper quadrant causing to have some difficulty breathing. She was starting to pant and she could not breathe and therefore she decided to go to the ER. She did have a CT scan of the abdomen. I did personally reviewed. No evidence of any pulmonary parenchymal disease to explain her symptoms. Although on exam she does have some guarding over the right upper voluntary guarding. Her LFTs were normal which is reassuring. No evidence of any gallstones or any cholecystitis on her CT scan of the abdomen. She will be following up with primary care doctor. In the meantime respiratory diamond patient is doing well. She is participating in lung cancer screening program and is due for CT scan the fall 2023. continues use respiratory inhalers as needed. We did go for brief walking oximetry because of shortness of breath and she was able to maintain a pulse ox in the mid 90s. Will go ahead and check an overnight oximetry to make sure she does not have any evidence of hypoxia at nighttime. 05/20/2024 the patient is here for a pulmonary follow-up visit. Overall she is doing well. The patient has been using her rescue inhaler as needed. Typically does not use it often. She did have a cold recently did develop some cough although seems to be getting better. Mild in severity. Denies any chest pains denies any shortness of breath. She did have an overnight oximetry which is reassuring without any desaturations. The patient also is participating in the lung cancer screening program at [facility]. Her last CT scan was back in 04/29/2023. She has not heard as of yet of her more recent CT scan order. Therefore I did request that if she does not hear anything by June to call us and I will put a referral in to our program so she can consider getting her lung cancer screening program here. In addition to that she is working on her smoking cessation. The patient is trying to quit although is difficult because this is a past time. She is doing her best. She also quit drinking due to the fact that she has been having some unsteadiness of the gait. [facility] Medical History Thyroid cancer ANA (obstructive sleep apnea) Smoking Pulmonary nodules COPD (chronic obstructive pulmonary disease) Social History (Updated 08/11/23 @ 14:42 by LUCINA Summers) Patient Tobacco Use Status: Current everyday Tobacco user Tobacco use type: Cigarette Review of Systems Const Reports daytime sleepiness, Reports difficulty sleeping, Denies fever(s) and Reports snoring Eyes Reports no additional complaints ENT Reports nasal congestion Card Denies chest pain and Reports dyspnea on exertion Resp Reports cough, Reports dyspnea on exertion, Reports snoring and Denies wheezing GI Reports as per HPI and Reports abdominal pain Musc Reports no additional complaints Skin/Breast Denies rash Neuro Reports no additional complaints Psych Reports abnormal sleep pattern Narayan/Lymph Denies lymphadenopathy Aller/Immun Denies wheezing Physical Exam Vital Signs: Last Vital Signs Pulse 51 05/20/24 14:35 BP 128/70 05/20/24 14:35 Pulse Ox 98 05/20/24 14:35 Oxygen Delivery Method Room Air 05/20/24 14:35 BMI result Body Mass Index 18.2 Const General: comfortable HEENT Head: Yes normocephalic Neck Neck: Yes supple Chest Chest palpation & inspection: normal inspection of the chest Resp Effort & Inspection: normal respiratory effort and prolonged expiratory phase Auscultation: diminished lung sounds Cardio Heart sounds: S1 normal heart sound present and S2 normal heart sound present GI Palpation (GI): Soft to palpation Skin General skin exam: no rashes or lesions noted Extrem General: Yes no clubbing, cyanosis or edema Assessment & Plan Assessment & Plan (1) COPD (chronic obstructive pulmonary disease): Code(s): J44.9 - Chronic obstructive pulmonary disease, unspecified Category: Medical Qualifiers: COPD type: chronic bronchitis Chronic bronchitis type: simple Qualified Code(s): J41.0 - Simple chronic bronchitis (2) Pulmonary nodules: Comment: 2022-LDCT RADS 2 Code(s): R91.8 - Other nonspecific abnormal finding of lung field Category: Medical (3) Smoking: Code(s): F17.200 - Nicotine dependence, unspecified, uncomplicated Category: Social Hx (4) ANA (obstructive sleep apnea): Code(s): G47.33 - Obstructive sleep apnea (adult) (pediatric) Category: Medical Plan holding Airduo (goodrx), monitor muscle spasms. If symptoms persists JOVITA as needed overnight oximetry on RA very good tobacco cessation: nicotene patch 14mg LDCT 04/24/2023 RADS 2, awaiting [facility] [place] [place] scheduling. She should call if no LDCT by June-will refer to [facility] [place] LDCT bowel regimen F/U 8-12 months Coding Level of Care Code Est Pt Level 4 (53062) Diagnoses Simple chronic bronchitis J41.0 COPD type: chronic bronchitis Chronic bronchitis type: simple Pulmonary nodules R91.8 Smoking F17.200 ANA (obstructive sleep apnea) G47.33 Time Spent (min) 16
[2024-05-20 14:35] VITALS: BP 128/70; PULSE 51; O2SAT 98; BMI 18.2
== END 2024-05-20 14:53 | disposition home or self-care (01) ==
PROVIDERS: PCP Nurse Practitioner Family; Visit Provider Hospitalist
DX: J41.0 Simple chronic bronchitis (principal); R91.8 Other nonspecific abnormal finding of lung field; F17.200 Nicotine dependence, unspecified, uncomplicated; G47.33 Obstructive sleep apnea (adult) (pediatric)
CPT/HCPCS: 99214

== ENCOUNTER → 2024-05-20 14:16 | Outpatient (BNVA) | payer OTHER, SELFPAY | PROVIDERS: PCP Nurse Practitioner Family; Visit Provider Hospitalist ==

== ENCOUNTER 2024-09-20 10:43 | Outpatient (AMB) | payer OTHER, SELFPAY ==
--- NOTE | 2024-09-20 10:49 | A.OFFPC_ITS ---
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 Intake Note: New patient visit Lawn Care Professional Required: No Allergies Penicillins [PENICILLINS] Allergy (Unknown, Verified 09/20/24 10:49) ITCHING Medication List - Last Reconciled 09/20/24 by Rosa M Mason, SENIOR DATA MODELER- famotidine 40 mg PO BID fluticasone propion-salmeterol 113-14 mcg/actuation (AirDuo RespiClick) 1 inh inhalation Q12H 30 days labetalol 150 mg PO BID lidocaine 5% 1 patch topical DAILY nifedipine ER mg PO sertraline 200 mg PO .at night tramadol 50 mg PO DAILY Tobacco use date assessed: 09/20/24 Fall risk assessment: 2 + Falls in past year Last assessed Fall Risk: 09/20/24 Dental Screening Dental Screen Date: 09/20/24 Did you have a dental visit in the last 12 months?: Yes Did you have a dental problem in the last 6 months where you did not have access to dental care?: No Was dental information given to patient?: Patient has dentist HPI HPI Comments History of Present Illness Details 69 y/o f with benign lipid adenoma bilat , R renal cyst, uterine fibroid, severe atherosclerotic calcification of the aorta and moderate to severe calcifications of the iliofemoral vessels (CT abd pelvis 6 2023), spinal DJD, bilat lung nodule, current smoker, COPD, thyroid ca, ANA, HTN, hx of renal stones, MDD , osteopenia, s/p L arm fracture, b 12 def s/p hemithyroidectomy 2020, bowel resection, S/p bilat CTS Fmhx: Mom brain ca 29, dad mi 62, brother skin ca, sister CVA, Sz 55 Health Maintenance Dexa 2021 repeat ordered today Tdap UTD Flu UTD Mammo ordered today [facility] Specialist lung ca [place] [facility] here [facility] Old records reviewed COPD/ANA and smoking: Active w/ Pulm. Frequent falls/Osteopenia: had L arm fracture. Feels dizzy before falling. On BB CAD: was on statin, this was stopped d/t falls S/p hemithyroidectomy: was active with [facility] endo. no lnger takes insurance. On Famotadine but not sure why. Denies hx of GERD, barretts. Has never had EGD. MDD on sertraline DJD of spine sparing use of tramadol < 30 tabs/ year Review of Systems - General: Denies unintentional weight l oss - Cardiovascular: Denies chest pain - Respiratory: Reports no current cough or difficulty breathing - Musculoskeletal: Reports balance issue s - Neurological: Reports dizziness Exam Awake alert, frail Bradycardic, regular rythym LS dim throughout No edema BLE Mood and affect appropriate EKG Sinus marito, LVH Results: Labs from 09/20/2024 show a normal CBC, normal electrolytes, normal renal function, normal iron, normal LFTs, normal lipid profile with LDL 94, normal vitamin-D and TSH, normal urine microalbumin creatinine ratio, b12 low Discussion Notes During our consultation, we extensively discussed the patient's recent history of falls alongside the suggested interventions, including a referral to physical therapy with an emphasis on fall prevention strategies. We also evaluated the risks associated with ongoing Famotidine use, deciding to initiate a plan to taper and potentially discontinue usage due to the negative impact on bone health. Further laboratory workup was also deemed essential in capturing a current status of lipid management given the adjustments made to her statin treatments. Additionally, a significant reduction in hypertension medication dosage was suggested, with immediate heart rate monitoring through EKG due to signs of bradycardia. Consent was obtained for follow-up diagnostics, and detailed future interventions were outlined for lung, dEXA & mammogram screening, with patient agreement. Plan Given the patient's history of balance problems and falls, we are initiating a comprehensive management plan focused on improving balance and preventing further falls through a referral to physical therapy specializing in fall prevention. We are addressing her hypertension, considering dosage adjustments of Labetalol due to observed bradycardia. The plan involves a thorough review of her past conditions, including blood lipid levels, as she transitions off Atorvastatin. We will evaluate current GERD management strategies and aim to discontinue Famotidine to mitigate risk to her bone integrity. Referrals have been made for lung and annual mammogram screening, and her bone density scan will be updated based on past records. Given the historical back pain impacting her daily life, pain management will remain a focus, ensuring medication usage is both minimal and effective in addressing her discomfort. Our ongoing plan of care involves regular follow-up to assess progress and refine interventions as needed, integrating patient feedback and test outcomes for optimized patient health and well-being. Plan Referred to PT for falls Smoking cessation Reduce famotidine from 40mg bid to 20mg bid. Goal to taper off. 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 This includes time spent before the visit reviewing the chart, time spent during the visit, and time spent after the visit on documentation, reviewing laboratory results, diagnostic imaging, medications, performing a medically necessary evaluation, counseling on diagnoses, care coordination, ordering appropriate tests, ordering appropriate medications, review of tests performed by other providers, reporting test results with the patient, communication with other healthcare providers. [facility] Medical History (Updated 09/20/24 @ 17:23 by Rosa M Mason [facility]) COPD (chronic obstructive pulmonary disease) ANA (obstructive sleep apnea) Pulmonary nodules Smoking Thyroid cancer Surgical History Previous back surgery H/O laminectomy History of bowel resection Family History Sister Depression Brother Depression HTN (hypertension) Father HTN (hypertension) Heart disease Paternal Grandfather HTN (hypertension) Brother Heart disease Other FH: mental illness Social History (Updated 09/20/24 @ 14:00 by Jesi Montes De Oca CMA) Housing: House Alcohol intake: current Patient Tobacco Use Status: Current everyday Tobacco user Tobacco use type: Cigarette Cigarettes Per Day: 10 Years Smoked: 20 e-Cigarette/Vaping Use: Never Used service: No Current occupational status: retired Cognitive needs: No Hearing needs: Yes (need hearing checked) Vision needs: Yes (glasses) Questionnaire PHQ-9 Over the last 2 weeks, how often have you been bothered by any of the following problems? 1. Little interest or pleasure in doing things: several days 2. Feeling down, depressed, or hopeless: several days 3. Trouble falling or staying asleep, or sleeping too much: more than half the days 4. Feeling tired or having little energy: more than half the days 5. Poor appetite or overeating: several days 6. Feeling bad about yourself - or that you are a failure or have let yourself or your family down: several days 7. Trouble concentrating on things, such as reading the newspaper or watching television: not at all 8. Moving or speaking so slowly that other people could have noticed. Or the opposite - being so fidgety or restless that you have been moving around a lot more than usual: several days 9. Thoughts that you would be better off or of hurting yourself in some way: not at all Total score: 9 Depression Screening Interpretation: Positive Depression Screening Follow-up: Existing condition Depression Screening Done: Yes 28541 - PHQ-9 Billing: Yes Source: Developed by Drs. Robert Rothman, Alexandria Frausto, Cristino Miller and colleagues, with an educational susy from [employer]. Thrive Questionnaire Date Thrive assessed: 09/13/24 I am a: Patient What is your living situation today?: I have a steady place to live Within the past 12 months, did the food you bought not last and you didn't have the money to get more?: Never true Within the past 12 months, did you worry whether your food would run out before you got money to buy more?: Never true Do you have trouble paying for medicines?: Yes Do you have trouble getting transportation to medical appointments?: No Do you have trouble paying your heating and electricity bill?: Yes Do you have trouble taking care of your child, family member or friend?: No Do you have trouble with day-to-day activities such as bathing, preparing meals, shopping, managing finances, etc.?: I choose not to answer this question Are you currently unemployed and looking for a job?: No Are you interested in more education?: Yes Please select the resources that you would like help with: Paying for medicine Currently or been in a relationship where the following occur: No concerns reported THRIVE Score: 1 AUDIT C Alcohol Use Questionnaire (AUDIT-C) 1. How often do you have a drink containing alcohol?: 2-3 times a week 2. How many drinks containing alcohol do you have on a typical day when you are drinking?: 3 or 4 3. How often do you have six or more drinks on one occasion?: Never Total Score: 4 Score Reviewed/Action Taken: Yes VIGNESH-7 AMB Questionnaire VIGNESH-7 Date VIGNESH - 7 assessed: 09/20/24 Feeling nervous, anxious, or on edge: 1 = Several days Not being able to stop or control worryin = Several days Worrying too much about different things: 1 = Several days Trouble relaxin = Not at all Being so restless that it is hard to sit still: 0 = Not at all Becoming easily annoyed or irritable: 0 = Not at all Feeling afraid as if something awful might happen: 0 = Not at all Total VIGNESH-7 score (0-4 normal; 5-9 mild; 10-14 moderate; 15-21 severe): 3 Source: Developed by Drs. Robert Rothman, Alexandria Frausto, Cristino Miller and colleagues, with an educational susy from [employer]. VIGNESH-7 Assessment Billing VIGNESH-7 Assessment Tool: VIGNESH-7 Assessment 21668 Physical exam (Primary Care) Vital Signs: Last Vital Signs Pulse 50 09/20/24 11:04 Resp 14 09/20/24 11:04 BP 126/66 09/20/24 11:04 Pulse Ox 93 09/20/24 11:04 Oxygen Delivery Method Room Air 09/20/24 11:04 BMI result Body Mass Index 20.5 Tobacco/Smoking Status: Tobacco use Status Tobacco use date assessed 09/20/24 09/20/24 11:09 Patient Tobacco Use Status Current everyday Tobacco 09/20/24 10:52 Tobacco use type Cigarette 09/20/24 10:52 e-Cigarette/Vaping Use Never Used 09/20/24 11:09 Are you ready to quit: No Tobacco cessation counseling provided: Yes Items discussed: Nicotine replacement, QuitWorks and Other Relapse Prevention: discussed the importance of a supportive environment, discussed extending NRT, discussed negative mood or depression after quitting, weight gain after smoking is common and discussed dietary, exercise and/or lifestyle changes Number of minutes spent counselin CPT code: 07375 - 4-10 Minutes PHQ-9: PHQ-9 Score PHQ-9: Total score 9 09/20/24 15:48 Depression Screening Interpretation: Positive Depression Screening Follow-up: Existing condition Thrive Assessment: Date of Thrive Assessment Date Thrive assessed 09/13/24 09/20/24 10:52 Currently or been in a relationship where the following occur: No concerns reported Office Procedures EKG 87639-Aolpjientphvzqzti, Complete Coding Level of Care Code New Pt Level 5 (51057) Complex EM visit Add On G2211 Diagnoses Encounter to establish care Z76.89 Simple chronic bronchitis J41.0 COPD type: chronic bronchitis Chronic bronchitis type: simple Tobacco use Z72.0 ANA (obstructive sleep apnea) G47.33 Coronary artery disease involving [place] coronary artery of [place] heart without angina pectoris I25.10 Associated angina: without angina Coronary Disease-Associated Artery/Lesion type: [place] artery [place] vs. transplanted heart: [place] heart Osteopenia, unspecified location M85.80 Osteopenia location: unspecified History of thyroid cancer Z85.850 Status post partial thyroidectomy E89.0 Frequent falls R29.6 Weakness of both lower extremities R29.898 Laterality: bilateral Moderate episode of recurrent major depressive disorder F33.1 Major depression episode severity: moderate Primary hypertension I10 Hypertension type: primary hypertension Bilateral renal cysts N28.1 History of renal calculi Z87.442 Spondylosis of lumbar region without myelopathy or radiculopathy M47.816 Spinal osteoarthritis complication: without myelopathy or radiculopathy Pulmonary nodules R91.8 Dizziness R42 CPT Codes EKG - CPT: 14614-Lguemnpceiiwhjwpe, Complete ([id number]) Additional Codes VIGNESH-7 Assessment Billing - VIGNESH-7 Assessment Tool: VIGNESH-7 Assessment 43960 ([id number]) PHQ-9 - 04567 - PHQ-9 Billing: Yes ([id number]) Vital Signs *Quality* - CPT code: 83585 - 4-10 Minutes ([id number]) Assessment & Plan Assessment & Plan (1) Encounter to establish care: Code(s): Z76.89 - Persons encountering health services in other specified circumstances (2) COPD (chronic obstructive pulmonary disease): Code(s): J44.9 - Chronic obstructive pulmonary disease, unspecified Category: Medical Qualifiers: COPD type: chronic bronchitis Chronic bronchitis type: simple Qualified Code(s): J41.0 - Simple chronic bronchitis (3) Tobacco use: Code(s): Z72.0 - Tobacco use Category: Social Hx (4) ANA (obstructive sleep apnea): Code(s): G47.33 - Obstructive sleep apnea (adult) (pediatric) Category: Medical (5) CAD (coronary artery disease): Comment: severe atherosclerotic calcification of the aorta and moderate to severe calcifications of the iliofemoral vessels (CT abd pelvis 2023) Code(s): I25.10 - Atherosclerotic heart disease of [place] coronary artery without angina pectoris Category: Medical Qualifiers: Associated angina: without angina Coronary Disease-Associated Artery/Lesion type: [place] artery [place] vs. transplanted heart: [place] heart Qualified Code(s): I25.10 - Atherosclerotic heart disease of [place] coronary artery without angina pectoris (6) Osteopenia: Code(s): M85.80 - Other specified disorders of bone density and structure, unspecified site Category: Medical Qualifiers: Osteopenia location: unspecified Qualified Code(s): M85.80 - Other specified disorders of bone density and structure, unspecified site (7) History of thyroid cancer: Code(s): Z85.850 - Personal history of malignant neoplasm of thyroid Category: Medical (8) Status post partial thyroidectomy: Code(s): E89.0 - Postprocedural hypothyroidism Category: Surgical (9) Frequent falls: Code(s): R29.6 - Repeated falls Category: Medical (10) Leg weakness: Code(s): R29.898 - Other symptoms and signs involving the musculoskeletal system Category: Medical Qualifiers: Laterality: bilateral Qualified Code(s): R29.898 - Other symptoms and signs involving the musculoskeletal system (11) MDD (major depressive disorder), recurrent episode: Code(s): F33.9 - Major depressive disorder, recurrent, unspecified Category: Medical Qualifiers: Major depression episode severity: moderate Qualified Code(s): F33.1 - Major depressive disorder, recurrent, moderate (12) HTN (hypertension): Code(s): I10 - Essential (primary) hypertension Category: Medical Qualifiers: Hypertension type: primary hypertension Qualified Code(s): I10 - Essential (primary) hypertension (13) Bilateral renal cysts: Comment: benign based on imaging 2023 Code(s): N28.1 - Cyst of kidney, acquired Category: Medical (14) History of renal calculi: Code(s): Z87.442 - Personal history of urinary calculi Category: Medical (15) Degenerative joint disease (DJD) of lumbar spine: Code(s): M47.816 - Spondylosis without myelopathy or radiculopathy, lumbar region Category: Medical Qualifiers: Spinal osteoarthritis complication: without myelopathy or radiculopathy Qualified Code(s): M47.816 - Spondylosis without myelopathy or radiculopathy, lumbar region (16) Pulmonary nodules: Comment: 2022-LDCT RADS 2 Code(s): R91.8 - Other nonspecific abnormal finding of lung field Category: Medical (17) Dizziness: Code(s): R42 - Dizziness and giddiness Category: Medical Plan . Orders: Orders PT Evaluation and Treatment Today R29.6 - Repeated falls, R29.898 - Other symptoms and signs involving the musculoskeletal system IRON PROFILE Today G47.33 - Obstructive sleep apnea (adult) (pediatric), I25.10 - Atherosclerotic heart disease of [place] coronary artery without angina pectoris, M85.80 - Other specified disorders of bone density and structure, unspecified site, Z85.850 - Personal history of malignant neoplasm of thyroid TSH reflex Free T4 Today G47.33 - Obstructive sleep apnea (adult) (pediatric), I25.10 - Atherosclerotic heart disease of [place] coronary artery without angina pectoris, M85.80 - Other specified disorders of bone density and structure, unspecified site, Z85.850 - Personal history of malignant neoplasm of thyroid Vitamin B12 and Folate Today G47.33 - Obstructive sleep apnea (adult) (pediatric), I25.10 - Atherosclerotic heart disease of [place] coronary artery without angina pectoris, M85.80 - Other specified disorders of bone density and structure, unspecified site, Z85.850 - Personal history of malignant neoplasm of thyroid XR DEXA axial skeleton Today M85.80 - Other specified disorders of bone density and structure, unspecified site, Z13.820 - Encounter for screening for osteoporosis Complete Blood Count no Diff Today G47.33 - Obstructive sleep apnea (adult) (pediatric), I25.10 - Atherosclerotic heart disease of [place] coronary artery without angina pectoris, M85.80 - Other specified disorders of bone density and structure, unspecified site, Z85.850 - Personal history of malignant neoplasm of thyroid Comprehensive Met. Panel Today G47.33 - Obstructive sleep apnea (adult) (pediatric), I25.10 - Atherosclerotic heart disease of [place] coronary artery without angina pectoris, M85.80 - Other specified disorders of bone density and structure, unspecified site, Z85.850 - Personal history of malignant neoplasm of thyroid Lipid Panel Today G47.33 - Obstructive sleep apnea (adult) (pediatric), I25.10 - Atherosclerotic heart disease of [place] coronary artery without angina pectoris, M85.80 - Other specified disorders of bone density and structure, unspecified site, Z85.850 - Personal history of malignant neoplasm of thyroid Microalbumin, Random (w Creat) Today G47.33 - Obstructive sleep apnea (adult) (pediatric), I25.10 - Atherosclerotic heart disease of [place] coronary artery without angina pectoris, M85.80 - Other specified disorders of bone density and structure, unspecified site, Z85.850 - Personal history of malignant neoplasm of thyroid Vitamin D 25-OH Total Today G47.33 - Obstructive sleep apnea (adult) (pediatric), I25.10 - Atherosclerotic heart disease of [place] coronary artery without angina pectoris, M85.80 - Other specified disorders of bone density and structure, unspecified site, Z85.850 - Personal history of malignant neoplasm of thyroid MM tomosynthesis screening BI Today Z12.31 - Encounter for screening mammogram for malignant neoplasm of breast Medications: New labetalol 100 mg PO BID 60 tabs 0RF tramadol sparingly 50 mg PO DAILY PRN 30 tabs 0RF pain mecobalamin (vitamin B12) (B12 Active) chewable or tablets whatever is covered/available 2,000 mcg (2 x 1,000 mcg) PO DAILY 180 tabs 3RF Changed From famotidine 40 mg PO BID To famotidine 20 mg PO BID Refilled fluticasone propion-salmeterol 113-14 mcg/actuation (AirDuo RespiClick) 1 inh inhalation Q12H 30 days 1 ea 11RF Patient Instructions: Patient Instructions - Begin tapering Famotidine as directed with a goal to discontinue - Schedule and attend physical therapy for balance improvement and fall prevention - Complete laboratory tests and screening procedures as ordered - Return for follow-up visit to review test results and progress - Monitor for symptoms of acid reflux during Famotidine reduction 20mg BID Decrease labetolol from 150mg bid to 100mg bid - Immediate intake of emergent care for any subsequent falls or noticeable exacerbation in balance issues Walk-In Care (Urgent Care): We Make it Easy Walk-in for urgent medical issues such as: ? Seasonal Allergies ? Insect Bites ? Cough ? Diarrhea ? Acute Asthma Attacks ? Back, Knee or Joint Pain ? Ear Infection ? Fever without a Rash ? Headaches ? Nausea ? [place] Eye, Rash or Skin Irritation ? Sore Throat ? Sports Physicals ? Vomiting Most insurances are accepted. Patients do not need to be part of the [facility] to seek care at the walk-in clinic. Locations [address] [facility] [place] [address] ? [phone] [facility] Walk-In Care in [place] provides services to ages 18 and over. Open Thursday-Thursday: 8 a.m. to 5 p.m. and Thursday: 9 a.m. to 3 p.m.* *Hours may vary due to staffing availability. To confirm Walk-In Care hours in [place], please call [phone]. [address] [place] [address] ? [phone] [facility] Walk-In Care in [place] provides services to ages 12 and over. Open Thursday-Thursday: 8 a.m. to 5 p.m. Hours may vary due to staffing availability. To confirm Walk-In Care hours in [place], please call [phone]. LABORATORY SERVICES: [facility] Lab ? Primary Location [address] [place] [address] Thursday through Thursday 6:00 AM ? 5:00 PM Thursday 7:00 AM ? 11:00 AM* [phone] The [facility] Lab is centrally located near the front entrance of the Medical Center for easy outpatient access. Convenient parking is provided for outpatients. *Hours may vary due to staffing availability. To confirm Laboratory hours for any location, please call [phone]. Offsite Location For your convenience, we offer offsite laboratory draw stations at the following locations: [address] [place] [address] ? [facility] [address], [address] Thursday through Thursday 7:30 AM ? 1:00 PM* [phone] *Hours may vary due to staffing availability. To confirm Laboratory hours for any location, please call [phone]. [place] ? [address] Thursday through Thursday 6:00 AM ? 3:30 PM* Thursday 6:30 AM ? 3 PM* [phone] *Hours may vary due to staffing availability. To confirm Laboratory hours for any location, please call [phone]. [address] [facility] Thursday through Thursday 7:30 AM ? 4:00 PM* [phone] *Hours may vary due to staffing availability. To confirm Laboratory hours for any location, please call [phone] [place] [address] Thursday through 9:00 AM ? 4:00 PM* *Hours may vary due to staffing availability. To confirm Laboratory hours for any location, please call [phone]. Appointments are not necessary. Walk-ins are welcome. Like all the departments throughout the [facility], our Lab undergoes frequent reviews to ensure the quality and accuracy of test results, and our staff takes special pride in its status as a nationally accredited facility. Patient Portal: ONE PATIENT. ONE RECORD. BETTER CARE. [facility] has a fully integrated, cutting- edge mobile electronic health information system that has revolutionized the way we care for our patients and manage our organization. This system improves communication and coordination enabling us to provide safe, higher-quality care, and an overall positive experience for staff and patients. Our first priority, as always, is to deliver the highest quality care possible. The system is running in the background supporting that priority. This portal is for all [facility] and [facility] services and practices. If you are experiencing any technical difficulties with enrolling or logging into the Patient Portal please complete the [facility] Patient Portal Technical Support Form. [facility] and [facility] now offers a new secure on-line interactive tool for patients to review their health information ? Patient Portal. This interactive web portal will enable patients and their families to take an active role in their care by providing easy, secure access to their health information via the internet. The Patient Portal provides patients with instant access to their health information, including laboratory results, medications, allergies, demographic information, visit history, and more. In addition to managing their own care, parents and health care proxies with authorized consent will appreciate the ability to access the records of those individuals for whom they provide care. Please note: if you wish to gain access (Proxy) to another patient?s portal, you will be required to come to the Medical Records Department in person at [facility]. Both the patient giving proxy access and the proxy will need to provide photo identification and complete the appropriate authorization. The Patient Portal also allows track their appointments online. The [facility] Patient Portal also saves patients time by allowing them to submit updates to their demographic and contact information prior to their visits. Por susan email notifications will also alert patients to any new activity on their portal, such as test results and new appointments. In order to initially enroll in the [facility] Patient Portal, you will need to enter some required information including the following: ? your [facility] Medical Record number ? your personal home email address ? name ? date of Please note: In order to enroll in the [facility] Patient Portal, we need to have your email address on file in your electronic medical record. The email address needs to be specific for one person (yourself) in order for your Portal enrollment to be successful. You can update your email address in person with our Registration staff when you are registering for a hospital visit. Otherwise, you will need to come to the Health Information Management (Medical Records) Department at [facility]. We are open from Thursday ? Thursday from 7:30 a.m. ? 4:30 p.m. You will be required to present a photo id. Once you have successfully enrolled in the Patient Portal, you will receive a one-time user id and password for the Portal, sent to your email address. This will allow you to log into the Patient Portal within 99 hrs and reset your own logon id and password, and define personal security questions. Once your permanent login and password have been set, you can log into the [facility] Patient Portal at any time via the blue button above or from the Portal Logon button on any page of the [facility] website. [facility] and [facility] encourage all of our patients to enroll in Patient Portal as it presents a valuable opportunity for patients and their families to actively participate in their care and stay healthy Welcome to [facility]. We look forward to working with you. Smoking Cessation How to Quit There are a lot of ways to quit smoking and many resources to help you. Family members, friends, and co-workers may be supportive or encouraging, but to be successful the desire and commitment to quit must be your own. Most people who have been able to successfully quit smoking made at least one unsuccessful attempt in the past. Try not to view past attempts to quit as failures, but rather as learning experiences. Stopping smoking or using smokeless tobacco is difficult, but anyone can do it. Know the symptoms to expect when you stop. Common symptoms include: ? An intense craving for nicotine ? Anxiety, tension, restlessness, frustration, or impatience ? Difficulty concentrating ? Drowsiness or trouble sleeping, as well as bad dreams and nightmares ? Drowsiness and trouble sleeping ? Headaches ? Increased appetite and weight gain ? Irritability or depression How severe your symptoms are depends on how long you smoked and how many cigarettes you smoked each day. Feel ready to quit? ? First and foremost, set a quit date and quit completely on that day. Before your quit date, you may begin reducing your cigarette use. But remember, there is no safe level of cigarette smoking. ? List the reasons why you want to quit. Include both short- and long-term benefits. ? Identify the times you are most likely to smoke. For example, do you tend to smoke when feeling stressed or down? When out at night with friends? While drinking coffee or alcohol? When bored? While driving? Right after a meal or sex? During a work break? While watching TV or playing cards? When you are with other smokers? ? Let all of your friends, family, and co-workers know of your plan to stop smoking and your quit date. Just being aware that they know what you're going through can be helpful, especially when you are grumpy. ? Get rid of all your cigarettes just before the quit date, and clean out anything that smells like smoke, such as clothes and furniture. Make a plan about what you will do instead of smoking at those times when you are most likely to smoke. ? Be as specific as possible. For example, drink tea instead of coffee -- tea may not trigger the desire for a cigarette. Or, take a walk when you feel stressed. ? Remove ashtrays and cigarettes from the car. Place pretzels or hard candies there instead. Pretend-smoke with a straw. ? Find activities that focus your hands and mind but are not taxing or fattening. Computer games, solitaire, knitting, sewing, and crossword puzzles may help. ? If you normally smoke after eating, find other ways to end a meal. Play a tape or CD, eat a piece of fruit, get up and make a phone call, or take a walk (a good distraction that also da silva calories). Make other changes in your lifestyle. ? Change your daily schedule and habits. Eat at different times or eat several small meals instead of three large ones. Sit in a different chair or even a different room. ? Satisfy your oral habits by eating celery or other low-calorie snack, chewing sugarless gum, or sucking on a cinnamon stick. ? Go to public places and restaurants where smoking is prohibited or restricted. ? Eat regular meals and don't eat too much candy or sweet things. ? Get more exercise. Take walks or ride a bike. Exercise helps relieve the urge to smoke. Set short-term quitting goals and reward yourself when you meet them. ? Every day, put the money you normally spend on cigarettes in a jar. Then buy something pleasurable after a period of time. ? Try not to think about all the days ahead you will need to avoid smoking. Take it one day at a time. ? Even one puff or one cigarette will make your desire for more cigarettes even stronger. However, it is normal to make mistakes. So even if you have one cigarette, you don't need to take the next one. Other tips to help you quit smoking and stick to it: ? Enroll in a smoking cessation program (hospitals, health departments, community centers, and work sites often offer programs). Learn about self-hypnosis or other techniques. ? Ask your health care provider about prescription medications that are safe and appropriate for you. ? Find out about nicotine patches, gum, and sprays. The [place] [employer]'s web site -- www.cancer.org -- is an excellent resource for smokers who are trying to quit, and the [employer] [place] [employer] can help some smokers kick the habit. Above all, don't get discouraged if you aren't able to quit smoking the first time. Nicotine addiction is a hard habit to break. Try something different next time. Develop new strategies, and try again. Many people take several attempts to finally kick the habit.
[2024-09-20 11:04] VITALS: BP 126/66; PULSE 50; RESP 14; O2SAT 93; BMI 20.5
--- OUTSIDE RECORDS SUMMARY | 2024-09-20 12:00 | XMS_ITS | Data Portability ---
Author Organization [facility], [facility] Address [address] [place] [address] Care Team Providers Care Progress Clerk Name Role Phone EVERARDO VAZQUEZ Substation Technician EMELIA ELIZABETH Primary Care Provider DEANNA JIMENEZ Orthopedist PARVEEN DELVALLE, DMITRIY Morale Officer [phone] Assessment Encounter Date Assessment Date Assessment LastModified by Organization Details LastModified Time 01/01/2023 01/01/2023 We completed you r Medicare Wellness exam today. This was an opportunity to assess your overall well being including your ability to care for yourself, your mobility, memory, mental health, as well as your safety. With advancing age, it is important to assign someone in your life as your Health Care Proxy (HCP). This person should know what is important to you and what your wishes are for medical procedures if you cannot communicate your wishes yourself (severe illness, unconsciousness). We discussed having a completed Health Care Proxy form today. In addition, today we started a conversation about your End of Life wishes. These conversations will continue over the years. Please consider reading the book, Being Mortal by Daniel Lange to help frame future conversations. We discussed the purpose of a MOLST form (Medical Orders for Life Sustaining Treatment) and completed this form if appropriate per your wishes. Vision and Hearing are senses that are critically important as we age. When impaired, they can contribute to memory loss, falls, and make it harder to drive, talk to family and friends, and engage in the world. Please get your vision checked yearly and your hearing checked when you start to notice hearing loss. We discussed approaches to lowering your risk of heart disease and stroke . Your blood pressure is higher than goal consider losing weight and lowering your salt intake. Your cholesterol is at goal. We discussed cancer screening you may need as well as vaccines to prevent infections. Colon Cancer : PERSONAL HISTORY. Due for colorectal screening:every 5 years - DUE. If you are not planning to have a colonoscopy please screen with stool cards yearly. Rec F/u with GI provider. Breast Cancer : Breast Cancer Screening (mammography). Next mammogram due: 2022. Cervical Cancer Screening (pap test). Next pap due: not needed. Influenza Vaccine : Flu shot yearly. Tetanus Vaccine : Every 10 years. Due: 2022. The following vaccines are available from your pharmacy: Pneumonia Vaccine : PCV20: once after age 65. Shingles Vaccine : 2 shots after age 50. Covid Vaccine : Make sure you have received the most up to date covid vaccine. Your personal health goal for the year is: Not available 01/01/2023 14:45:23 05/05/2024 05/05/2024 Original concern for metastatic CA found as multiple lung nodules. Had PET which lit up mass in thyroid. Prior Hx of right nodule bx ([place]) which showed Hurthle cells. Bx (2020) in response to PET scan reports benign cells. F/U bx raised question of Hurthle. Now (2020) s/p hemithryoidectomy . Not on replacement. 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 * 07/30: Reported sx of sweating episodes. Also fasciculations. Checked plasma catecholamines. and 24 hr urine for 5HIAA and urinary catechols. 05/03: Ongoing balance issues. Has fallen several times. Orthostatics show now rise in HR with standing (drops systolic > 20 but not hypotensive). TSH OK but has low fT4. Check FSH, acth/cortisol, IGF-1, PRL Enhanced Provider time spent performing enhanced activities which may include, but are not limited to: reviewing tests, obtaining and/or reviewing patient history; ordering medications, test or procedures; EMR documentation; communication with patient, family, caregiver(s), VNA; pre-visit prep time communication with specialists, ER staff. Total time: (46 minutes) 05/03: Right ranjith- stable. TFTs ok Going for BMD soon. additional time discussing her concerns about other providers. recommendations given. Tingling feet/fingers, not mouth. muscle cramps. calcium OK in 01/31 always WNL in past. ?BMD in 2024- BMD OK in 2021 but had fx (wrist). also multiple falls. [email or web address] Not available 05/05/2024 12:52:31 06/23/2024 06/23/2024 Original concern for metastatic CA found as multiple lung nodules. Had PET which lit up mass in thyroid. Prior Hx of right nodule bx () which showed Hurthle cells. Bx (2020) in response to PET scan reports benign cells. F/U bx raised question of Hurthle. 2020: s/p hemithryoidectomy . Not on replacement. 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 * 07/30: Reported sx of sweating episodes. Also fasciculations. Checked plasma catecholamines and 24 hr urine for 5HIAA and urinary catechols. 05/03: Ongoing balance issues. Has fallen several times. Orthostatics showed rise in HR with standing (drops systolic > 20 but not hypotensive). TSH OK but has low fT4. FSH, acth/cortisol, IGF-1, PRL all normal. 07/03: Not on T4 and has OK labs. Maybe slowly increasing: TSH= 4.12 (06/02) was 2.3 (03/02) Enhanced Provider time spent performing enhanced activities which may include, but are not limited to: reviewing tests, obtaining and/or reviewing patient history; ordering medications, test or procedures; EMR documentation; communication with patient, family, caregiver(s), VNA; pre-visit prep time communication with specialists, ER staff. Total time: (39 minutes) 07/03: Right ranjith- stable. TFTs ok Going for BMD soon. additional time discussing her concerns about other providers. recommendations given. Tingling feet/fingers, not mouth. muscle cramps. calcium OK in 01/31 always WNL in past. ?BMD in 2024- BMD OK in 2021 but had fx (wrist). also multiple falls. 07/03: Back on statin. (no change while off). Likely needs PT of some type (help in setting dizziness). Encourage use of videos that she has if not dizzy but may need specific exercises to do lying down. Has protein shakes- at least daily. Keep doing that. Stop smoking. [email or web address] Not available 06/26/2024 18:26:19 Plan of Treatment Reminders Order Date Submit Date Provider Last Modified By Organization Details Last Modified Time Details Appointments None recorded. Lab urinalysis, dipstick 2022 023 [facility], [address] [place] [address], [id number], 3 13:57:42 lipid panel, serum 2023 024 [facility], [address] [place] [address], [address], 4 11:46:37 CBC 2023 024 [facility], [address] [place] [address], [address], 4 15:23:54 TSH, serum or plasma 2023 024 [facility], [address] [place] [address], [address], 4 15:23:40 BMP, serum or plasma 2023 024 [facility], [address] [place] [address], [address], 4 11:46:37 TSH, serum or plasma 2023 024 [facility], [address] [place] [address], [address], 4 12:31:07 T4, free, serum 2023 024 [facility], [address] [place] [address], [address], 4 11:52:26 T3, total, serum 2023 024 [facility], [address] [place] [address], [address], 4 11:09:06 FSH (follicle-s timulating hormone), serum 2023 024 [facility], [address] [place] [address], [address], 4 11:09:07 igf-1 (insulin-li ke growth factor), serum 2023 024 [facility], [address] [place] [address], [address], 4 14:43:26 cortisol, am, serum 2023 024 [facility], [address] [place] [address], [address], 4 14:43:25 acth, plasma 2023 024 [facility], [address] [place] [address], [address], 4 14:43:27 prolactin, serum 2023 024 [facility], [address] [place] [address], [address], 4 14:43:27 Referral None recorded. Procedures None recorded. Surgeries None recorded. Imaging MAMMO, screening, tomosynthes is, bilateral 2022 023 [facility] ([facility]), [address], [place], [address], 3 16:06:19 LDCT, chest, for lung cancer screening - Please enroll this patient in the LDCT Lung Cancer Screening Program (for ordering, follow up and shared decision making)h as hx known nodules. Dr. Leavitt 09/04/212022 023 [facility], [address] [place], [address], 3 17:26:04 Medication Orders clotrimazol e 10 mg darian 2022 023 [email or web address] [facility], [address] [place] [address], [address], [place], [place], [phone], 14:14:41 albuterol sulfate HFA 90 mcg/actuati on aerosol inhaler 2023 024 MICHELE [facility], [address], [address], [place], [place], [id number], 14:18:20 Patient TargetsNo targets recorded. Patient Instructions Encounter Date Encounter Id Patient Instructions Last Modified By Organization Details Last Modified Time 01/01/2023 [id number] high cholesterol lifestyle changes Not available 01/01/2023 14:40:56 advance directives: care instructions Not available 01/01/2023 14:40:57 preventing falls: care instructions Not available 01/01/2023 14:40:57 hearing loss: care instructions Not available 01/01/2023 14:40:56 well visit, over 65: care instructions Not available 01/01/2023 14:40:57 05/05/2024 [id number] - Get labs done before 8AM. [email or web address] Not available 05/05/2024 12:46:40 6 months/ 40 minutes Counseling done {{Patient not ready to quit Contemplati ng quitting* Taperi ng Cigarettes jonah d up for support prescrip tion for stop smoking medication given}} {{Patient not ready to quit Contemplati ng quitting Taperin g Cigarettes jonah d up for support prescrip tion for stop smoking medication given}} Goal for follow up visit {{adding exercise regular meals stress management impro ving sleep therapist identifying sponsor}} {{adding exercise regular meals stress management impro ving sleep therapist identifying sponsor}} {{adding exercise regular meals stress management impro ving sleep therapist identifying sponsor}} My Health To Do List {{go to [employer] [email or web address] or call * sign up for maru text 2 quit or other stop smoking maru contact Sqeeqeeee.gov}} {{go to [employer] or call s ign up for maru text 2 quit or other stop smoking maru contact smokeKaufmann Mercantile.gov*}} {{go to [employer] or call s ign up for maru text 2 quit or other stop smoking maru contact Hootsuite.gov}} Counseling done {{Patient not ready to quit Contemplati ng quitting Taperin g Cigarettes jonah d up for support prescrip tion for stop smoking medication given}} {{Patient not ready to quit Contemplati ng quitting Taperin g Cigarettes jonah d up for support prescrip tion for stop smoking medication given}} Goal for follow up visit {{adding exercise regular meals stress management impro ving sleep therapist identifying sponsor}} {{adding exercise regular meals stress management impro [employer] sleep therapist identifying sponsor}} {{adding exercise regular meals stress management impro [employer] sleep therapist identifying sponsor}} My [employer] To Do List {{go to [employer] or call s ign up for maru text 2 quit or other stop smoking maru contact smokeKaufmann Mercantile.gov}} {{go to [employer] or call s ign up for maru text 2 quit or other stop smoking maru contact [employer].gov}} {{go to [employer] or call s ign up for maru text 2 quit or other stop smoking maru contact smokePicmonicee.gov}} Not available 05/03/2024 09:03:04 06/23/2024 [id number] [email or web address] Not available 06/26/2024 18:30:45 6 months/ 40 minutes Counseling done {{Patient not ready to quit Contemplati ng quitting* Taperi ng Cigarettes jonah d up for support prescrip tion for stop smoking medication given}} {{Patient not ready to quit Contemplati ng quitting Taperin g Cigarettes joanh d up for support prescrip tion for stop smoking medication given}} Goal for follow up visit {{adding exercise regular meals stress management impro ving sleep therapist identifying sponsor}} {{adding exercise regular meals stress management impro ving sleep therapist identifying sponsor}} {{adding exercise regular meals stress management impro ving sleep therapist identifying sponsor}} My Health To Do List {{go to [employer] or call * sign up for maru text 2 quit or other stop smoking maru contact smokeKaufmann Mercantile.gov}} {{go to [employer] or call s ign up for maru text 2 quit or other stop smoking maru contact [employer].gov*}} {{go to [employer] or call s ign up for maru text 2 quit or other stop smoking maru contact [employer].gov}} Counseling done {{Patient not ready to quit Contemplati ng quitting Taperin g Cigarettes jonah d up for support prescrip tion for stop smoking medication given}} {{Patient not ready to quit Contemplati ng quitting Taperin g Cigarettes jonah d up for support prescrip tion for stop smoking medication given}} Goal for follow up visit {{adding exercise regular meals stress management impro ving sleep therapist identifying sponsor}} {{adding exercise regular meals stress management impro ving sleep therapist identifying sponsor}} {{adding exercise regular meals stress management impro ving sleep therapist identifying sponsor}} My Health To Do List {{go to [employer] or call s ign up for maru text 2 quit or other stop smoking maru contact smokefrMandic.gov}} {{go to [employer] or call s ign up for maru text 2 quit or other stop smoking maru contact smokeKaufmann Mercantile.gov}} {{go to [employer] or call s ign up for maru text 2 quit or other stop smoking maru contact smokeKaufmann Mercantile.gov}} [email or web address] Not available 06/23/2024 15:00:31 Reason for Referral None Reported. Results Created Date Observation Date Name Description Value Unit Range Abnormal Flag Note LastModifiedBy Organization Detail LastModifiedTime 12/26/1912/25/2022 HGB A1C hemoglobin A1C 5.2 % 4.8-6. 0 Goal: <7% in Patie nts with Diabe cecile An A1c betwe en 5.7-6 .4% is ident ified as pre-d iabet es and sugge sts risk for progr essio n to diabe cecile Two a1c value s of 6.5% or highe r is consi stent with a diagn osis of diabe cecile but may need furth er confi rmati on Not Available [address], [address], 12/25/2022 16:23:00 12/26/19 23 12/25/2022 HGB A1C estimated average glucose 102.5 mg/dL Not Available [address], [address], 12/25/2022 16:23:00 12/26/19 23 12/25/2022 VITAM IN D 25-HY DROXY TOTAL vitamin D 25-hydroxy EIA 48.2 NG/mL 20.0-9 9.9 Thera py is based on measu remen t of total 25-OH D, with level s less than 20 ng/mL indic ative of Vitam in D defic iency . Level s betwe en 20ng/ mL and 30 ng/mL sugge st insuf ficie ncy. Optim al Level s are great er than 30 ng/mL . Not Available [address], [address], 12/25/2022 16:26:10 12/26/1912/25/2022 TSH TSH 1.79 uIU/m L 0.50-6 .00 The Ameri can Colle ge of Endoc rinol ogy and Ameri can Thyro id Assoc iatio n recom mend goal TSH value s betwe en 0.4-4 .0 mIU/m L. Not Available [address], [address], 12/25/2022 16:26:15 12/26/19 23 12/25/2022 BASIC METAB OLIC PANEL glucose 120 mg/dL 70-100 high Not Available [address], [address], 12/25/2022 16:33:09 12/26/19 23 12/25/2022 BASIC METAB OLIC PANEL BUN 7 mg/dL 7-18 Not Available [address], [address], 12/25/2022 16:33:09 12/26/19 23 12/25/2022 BASIC METAB OLIC PANEL creatinine 0.8 mg/dL 0.8-1. 3 Not Available [address], [address], 12/25/2022 16:33:09 12/26/19 23 12/25/2022 BASIC METAB OLIC PANEL B/C 8.8 ratio Not Available [address], [address], 12/25/2022 16:33:09 12/26/19 23 12/25/2022 BASIC METAB OLIC PANEL GFR >=60ML /MIN mL/mi n normal >=60m L/min - Mercedes l or midly reduc ed <60mL /min- Decre ased kidne y funct ion <15mL /min - Kidne y failu re [facility] calcu lates estim ated Glome rular Filtr ation Rate (eGFR ) using the Chron ic Kidne y Disea se Epide miolo gy Colla borat ion (CKD- EPI) Equat ion (Sarahi r et. al 2020) as recom haris d by the Natio nal Kidne y Found ation . eGFR is based on age, serum creat inine , and sex. CKD-E PI does not calcu late eGFR by race, does not apply to child jessica (age <18 years ), and shoul d not be used in pregn junaid. Not Available [address], [address], 12/25/2022 16:33:09 12/26/19 23 12/25/2022 BASIC METAB OLIC PANEL sodium 141 mmol/ L 136-14 5 Not Available [address], [address], 12/25/2022 16:33:09 12/26/19 23 12/25/2022 BASIC METAB OLIC PANEL potassium 3.6 mmol/ L 3.5-5. 1 Not Available [address], [address], 12/25/2022 16:33:09 12/26/19 23 12/25/2022 BASIC METAB OLIC PANEL chloride 98 mmol/ L 96-107 Not Available [address], [address], 12/25/2022 16:33:09 12/26/19 23 12/25/2022 BASIC METAB OLIC PANEL anion gap 11.7 5.0-15 .0 Not Available [address], [address], 12/25/2022 16:33:09 12/26/19 23 12/25/2022 BASIC METAB OLIC PANEL CO2 31 mmol/ L 21-32 Not Available [address], [address], 12/25/2022 16:33:09 12/26/19 23 12/25/2022 BASIC METAB OLIC PANEL calcium 9.4 mg/dL 8.5-10 .3 Not Available [address], [address], 12/25/2022 16:33:09 12/26/19 23 12/25/2022 LIPID PANEL cholesterol 178 mg/dL <200 mg/dl Rola able 200-2 39 mg/dl Borde rline High >240 mg/dl High Not Available [address], [address], 12/25/2022 16:33:11 12/26/19 23 12/25/2022 LIPID PANEL triglyceride s 76 mg/dL <150 mg/dL Mercedes l 150-1 99 mg/dL Borde rline High 200-4 99 mg/dL High >500 mg/dL Very High Not Available [address] [place], [address], 12/25/2022 16:33:11 12/26/19 23 12/25/2022 LIPID PANEL direct HDL 80 mg/dL <40 mg/dl - Major Risk for CHD >60 mg/dl - Negat wesley Risk for CHD Not Available [address], [address], 12/25/2022 16:33:11 12/26/19 23 12/25/2022 DIREC T LDL direct LDL 73 mg/dL RISK CATEG ORY LDL GOAL _ CHD or CHD Risk Equiv alent s <100 mg/dl (10-y ear risk >20%) 2+ Risk Facto rs <130 mg/dl (10-y ear risk <= 20%) 0-1 Risk Facto r? <160 mg/dl ? Almos t all peopl e with 0-1 risk facto r have a 10 year risk <10%, thus 10 year risk asses ment in peopl e with 0-1 risk facto r is not braxton tavera. Not Available [address], [address], 12/25/2022 16:33:14 01/02/2001/01/2023 POC UA glu UA NEGATI VE Not Available [facility] [address] [place] [address], [address], 01/01/2023 13:57:42 01/02/20 23 01/01/2023 POC UA clarity UA CLEAR Not Available [facility] [address] [place] [address], [address], 01/01/2023 13:57:42 01/02/20 23 01/01/2023 POC UA uro UA 0.2000 Not Available [facility] [address] [place] [address], [address], 01/01/2023 13:57:42 01/02/20 23 01/01/2023 POC UA ket UA NEGATI VE Not Available [facility] [address] [place] [address], [address], 01/01/2023 13:57:42 01/02/20 23 01/01/2023 POC UA pro UA NEGATI VE Not Available [facility] [address] [place] [address], [address], 01/01/2023 13:57:42 01/02/20 23 01/01/2023 POC UA nit UA NEGATI VE Not Available [facility] [address] [place] [address], [address], 01/01/2023 13:57:42 01/02/20 23 01/01/2023 POC UA rebekah UA NEGATI VE Not Available [facility] [address] [place] [address], [address], 01/01/2023 13:57:42 01/02/20 23 01/01/2023 POC UA pH UA 7.0000 Not Available [facility] [address] [place] [address], [address], 01/01/2023 13:57:42 01/02/20 23 01/01/2023 POC UA SG UA 1.0200 Not Available [facility] [address] [place] [address], [address], 01/01/2023 13:57:42 01/02/20 23 01/01/2023 POC UA color UA YELLOW Not Available [facility] [address] [place] [address], [address], 01/01/2023 13:57:42 01/02/20 23 01/01/2023 POC UA blo UA NEGATI VE Not Available [facility] [address] [place] [address], [address], 01/01/2023 13:57:42 01/02/20 23 01/01/2023 POC UA bren UA NEGATI VE Not Available [facility] [address] [place] [address], [address], 01/01/2023 13:57:42 02/05/20 24 02/05/2024 HGB A1C hemoglobin A1C 5.3 % 4.8-6. 0 Goal: <7% in Patie nts with Diabe cecile An A1c betwe en 5.7-6 .4% is ident ified as pre-d iabet es and sugge sts risk for progr essio n to diabe cecile Two a1c value s of 6.5% or highe r is consi stent with a diagn osis of diabe cecile but may need furth er confi rmati on Not Available [address], [address], 02/05/2024 15:16:31 02/05/20 24 02/05/2024 HGB A1C estimated average glucose 105.4 mg/dL Not Available [address], [address], 02/05/2024 15:16:31 02/05/20 24 02/05/2024 CBC WBC 7.83 K/? ? ?L 3.98-1 0.04 Not Available [address], [address], 02/05/2024 15:23:54 02/05/20 24 02/05/2024 CBC RBC 4.36 M/? ? ?L 3.93-5 .22 Not Available [address], [address], 02/05/2024 15:23:54 02/05/20 24 02/05/2024 CBC HGB 14.3 g/dL 11.2-1 5.7 Not Available [address], [address], 02/05/2024 15:23:54 02/05/20 24 02/05/2024 CBC HCT 41.8 % 34.1-4 4.9 Not Available [address], [address], 02/05/2024 15:23:54 02/05/20 24 02/05/2024 CBC MCV 95.9 fL 79.4-9 4.8 high Not Available [address], [address], 02/05/2024 15:23:54 02/05/20 24 02/05/2024 CBC MCH 32.8 pg 25.6-3 2.2 high Not Available [address], [address], 02/05/2024 15:23:54 02/05/20 24 02/05/2024 CBC MCHC 34.2 g/dL 32.2-3 5.5 Not Available [address], [address], 02/05/2024 15:23:54 02/05/20 24 02/05/2024 CBC plt 225 K/? ? ?L 182-36 9 Not Available [address], [address], 02/05/2024 15:23:54 02/05/20 24 02/05/2024 CBC MPV 10.8 fL 9.4-12 .3 Not Available [address], [address], 02/05/2024 15:23:54 02/05/20 24 02/05/2024 CBC neut% 71.8 % 34.0-7 1.1 high Not Available [address], [address], 02/05/2024 15:23:54 02/05/20 24 02/05/2024 CBC neut# 5.62 1.56-6 .13 Not Available [address], [address], 02/05/2024 15:23:54 02/05/20 24 02/05/2024 CBC lymph % 20.9 % 19.3-5 1.7 Not Available [address], [address], 02/05/2024 15:23:54 02/05/20 24 02/05/2024 CBC lymph # 1.64 K/? ? ?L 1.18-3 .74 Not Available [address], [address], 02/05/2024 15:23:54 02/05/20 24 02/05/2024 CBC mono% 5.6 % 4.7-12 .5 Not Available [address], [address], 02/05/2024 15:23:54 02/05/20 24 02/05/2024 CBC mono# 0.44 0.24-0 .56 Not Available [address], [address], 02/05/2024 15:23:54 02/05/20 24 02/05/2024 CBC eo% 0.8 % 0.7-5. 8 Not Available [address], [address], 02/05/2024 15:23:54 02/05/20 24 02/05/2024 CBC eo# 0.06 0.04-0 .36 Not Available [address], [address], 02/05/2024 15:23:54 02/05/20 24 02/05/2024 CBC baso% 0.6 % 0.1-1. 2 Not Available [address], [address], 02/05/2024 15:23:54 02/05/20 24 02/05/2024 CBC baso# 0.05 0.00-0 .08 Not Available [address], [address], 02/05/2024 15:23:54 02/05/20 24 02/05/2024 CBC RDW-CV 12.3 % 11.7-1 4.4 Not Available [address], [address], 02/05/2024 15:23:54 02/05/20 24 02/05/2024 CBC Ig% 0.300 % 0.000- 1.500 Ig % >0.5 Indic ates possi ble Left Shift Not Available [address], [address], 02/05/2024 15:23:54 02/05/20 24 02/05/2024 CBC Ig# 0.020 0.000- 0.093 Not Available [address], [address], 02/05/2024 15:23:54 02/05/20 24 02/05/2024 CBC NRBC% 0.0 % 0.0-0. 2 Not Available [address], [address], 02/05/2024 15:23:54 02/05/20 24 02/05/2024 CBC NRBC# 0.000 0.000- 0.012 Not Available [address], [address], 02/05/2024 15:23:54 02/05/20 24 02/08/2024 BASIC METAB OLIC PANEL glucose 113 mg/dL 70-100 high Not Available [address], [address], 02/08/2024 11:46:36 02/05/20 24 02/08/2024 BASIC METAB OLIC PANEL BUN 16 mg/dL 7-18 Not Available [address], [address], 02/08/2024 11:46:36 02/05/20 24 02/08/2024 BASIC METAB OLIC PANEL creatinine 0.7 mg/dL 0.8-1. 3 low Not Available [address], [address], 02/08/2024 11:46:36 02/05/20 24 02/08/2024 BASIC METAB OLIC PANEL B/C 22.9 ratio Not Available [address], [address], 02/08/2024 11:46:36 02/05/20 24 02/08/2024 BASIC METAB OLIC PANEL GFR >=60ML /MIN mL/mi n normal >=60m L/min - Mercedes l or midly reduc ed <60mL /min- Decre ased kidne y funct ion <15mL /min - Kidne y failu re [facility] calcu lates estim ated Glome rular Filtr ation Rate (eGFR ) using the Chron ic Kidne y Disea se Epide miolo gy Colla borat ion (CKD- EPI) Equat ion (Sarahi r et. al 2020) as recom haris d by the Natio nal Kidne y Found ation . eGFR is based on age, serum creat inine , and sex. CKD-E PI does not calcu late eGFR by race, does not apply to child jessica (age <18 years ), and shoul d not be used in pregn junaid. Not Available [address], [address], 02/08/2024 11:46:36 02/05/20 24 02/08/2024 BASIC METAB OLIC PANEL sodium 142 mmol/ L 136-14 5 Not Available [address], [address], 02/08/2024 11:46:36 02/05/20 24 02/08/2024 BASIC METAB OLIC PANEL potassium 4.5 mmol/ L 3.5-5. 1 Not Available [address], [address], 02/08/2024 11:46:36 02/05/20 24 02/08/2024 BASIC METAB OLIC PANEL chloride 102 mmol/ L 96-107 Not Available [address], [address], 02/08/2024 11:46:36 02/05/20 24 02/08/2024 BASIC METAB OLIC PANEL anion gap 11.9 5.0-15 .0 Not Available [address], [address], 02/08/2024 11:46:36 02/05/20 24 02/08/2024 BASIC METAB OLIC PANEL CO2 28 mmol/ L 21-32 Not Available [address], [address], 02/08/2024 11:46:36 02/05/20 24 02/08/2024 BASIC METAB OLIC PANEL calcium 9.5 mg/dL 8.5-10 .3 Not Available [address], [address], 02/08/2024 11:46:36 02/05/20 24 02/08/2024 LIPID PANEL cholesterol 204 mg/dL <200 mg/dl Rola able 200-2 39 mg/dl Borde rline High >240 mg/dl High Not Available [address], [address], 02/08/2024 11:46:37 02/05/20 24 02/08/2024 LIPID PANEL triglyceride s 63 mg/dL <150 mg/dL Mercedes l 150-1 99 mg/dL Borde rline High 200-4 99 mg/dL High >500 mg/dL Very High Not Available [address], [address], 02/08/2024 11:46:37 02/05/20 24 02/08/2024 LIPID PANEL direct HDL 72 mg/dL <40 mg/dl - Major Risk for CHD >60 mg/dl - Negat wesley Risk for CHD Not Available [address] [place], [address], 02/08/2024 11:46:37 02/05/20 24 02/08/2024 DIREC T LDL direct LDL 109 mg/dL RISK CATEG ORY LDL GOAL _ CHD or CHD Risk Equiv alent s <100 mg/dl (10-y ear risk >20%) 2+ Risk Facto rs <130 mg/dl (10-y ear risk <= 20%) 0-1 Risk Facto r? <160 mg/dl ? Almos t all peopl e with 0-1 risk facto r have a 10 year risk <10%, thus 10 year risk asses ment in peopl e with 0-1 risk facto r is not braxton liang. Not Available [address], [address], 02/08/2024 11:46:38 02/05/20 24 02/08/2024 TSH TSH 1.32 uIU/m L 0.50-6 .00 The [employer] [facility] [employer] and [facility] Thyro id Assoc iatio n recom mend goal TSH value s betwe en 0.4-4 .0 mIU/m L. Not Available [address], [address], 02/08/2024 15:23:40 02/29/20 24 03/01/2024 FREE T4 free T4 0.71 NG/dL 0.75-1 .54 low Not Available [address], [address], 03/01/2024 10:48:50 02/29/20 24 03/01/2024 VITAM IN D 25-HY DROXY TOTAL vitamin D 25-hydroxy EIA 39.0 NG/mL 20.0-9 9.9 Thera py is based on measu remen t of total 25-OH D, with level s less than 20 ng/mL indic ative of Vitam in D defic iency . Level s betwe en 20ng/ mL and 30 ng/mL sugge st insuf ficie ncy. Optim al Level s are great er than 30 ng/mL . Not Available [address], [address], 03/01/2024 10:55:50 02/29/20 24 03/01/2024 TSH TSH 2.30 uIU/m L 0.50-6 .00 The [employer] End[employer] rinol o[facility] and Ameri can Thyro id Assoc iatio n recom mend goal TSH value s betwe en 0.4-4 .0 mIU/m L. Not Available [address], [address], 03/01/2024 11:03:38 05/31/20 24 05/31/2024 FREE T4 free T4 0.80 NG/dL 0.75-1 .54 Not Available [address], [address], 05/31/2024 11:52:26 05/31/20 24 05/31/2024 TSH TSH 4.12 uIU/m L 0.50-6 .00 The [employer] End[facility] rin[facility] and Ameri can Thyro id Assoc iatio n recom mend goal TSH value s betwe en 0.4-4 .0 mIU/m L. Not Available [address], [address], 05/31/2024 12:31:07 05/31/20 24 06/01/2024 TOTAL T3 total T3 1.28 NG/mL 0.70-1 .70 Not Available [address], [address], 06/01/2024 11:09:06 05/31/20 24 06/01/2024 FSH FSH 70.6 mIU/m L Male: 1.0 - 42.5 mIU/m L Femal e Ovula ting: Folli cular Phase : 2.7 - 15.4 mIU/m L Peak: 3.9 - 22.0 mIU/m L Lutea l Phase : 1.0 - 14.4 mIU/m L Postm enopa usal: 25.0 - 160.0 mIU/m L Not Available [address], [address], 06/01/2024 11:09:07 05/31/20 24 06/01/2024 LIPID PANEL cholesterol 219 mg/dL <200 mg/dl Rola able 200-2 39 mg/dl Borde rline High >240 mg/dl High Not Available [address], [address], 06/01/2024 14:38:40 05/31/20 24 06/01/2024 LIPID PANEL triglyceride s 150 mg/dL <150 mg/dL Mercedes l 150-1 99 mg/dL Borde rline High 200-4 99 mg/dL High >500 mg/dL Very High Not Available [address], [address], 06/01/2024 14:38:40 05/31/2006/01/2024 LIPID PANEL direct HDL 70 mg/dL <40 mg/dl - Major Risk for CHD >60 mg/dl - Negat wesley Risk for CHD Not Available [address], [address], 06/01/2024 14:38:40 05/31/2006/01/2024 LDL - CALCU LATED LDL - calculated 119 RISK CATEG ORY LDL GOAL _ CHD or CHD Risk Equiv alent s <100 mg/dl (10-y ear risk >20%) 2+ Risk Facto rs <130 mg/dl (10-y ear risk <= 20%) 0-1 Risk Facto r? <160 mg/dl ? Almos t all peopl e with 0-1 risk facto r have a 10 year risk <10%, thus 10 year risk asses ment in peopl e with 0-1 risk facto r is not yamilkeyur tavera. Not Available [address], [address], 06/01/2024 14:38:42 05/31/20 24 06/01/2024 BASIC METAB OLIC PANEL glucose 104 mg/dL 70-100 high Not Available [address], [address], 06/01/2024 15:00:52 05/31/2006/01/2024 BASIC METAB OLIC PANEL BUN 14 mg/dL 7-18 Not Available [address], [address], 06/01/2024 15:00:52 05/31/20 24 06/01/2024 BASIC METAB OLIC PANEL creatinine 0.8 mg/dL 0.8-1. 3 Not Available [address], [address], 06/01/2024 15:00:52 05/31/20 24 06/01/2024 BASIC METAB OLIC PANEL B/C 17.5 ratio Not Available [address], [address], 06/01/2024 15:00:52 05/31/20 24 06/01/2024 BASIC METAB OLIC PANEL GFR >=60ML /MIN mL/mi n normal >=60m L/min - Mercedes l or midly reduc ed <60mL /min- Decre ased kidne y funct ion <15mL /min - Kidne y failu re [facility] calcu lates estim ated Glome rular Filtr ation Rate (eGFR ) using the Chron ic Kidne y Disea se Epide miolo gy Colla borat ion (CKD- EPI) Equat ion (Sarahi r et. al 2020) as recom haris d by the Natio nal Kidne y Found ation . eGFR is based on age, serum creat inine , and sex. CKD-E PI does not calcu late eGFR by race, does not apply to child jessica (age <18 years ), and shoul d not be used in pregn junaid. Not Available [address], [address], 06/01/2024 15:00:52 05/31/2006/01/2024 BASIC METAB OLIC PANEL sodium 144 mmol/ L 136-14 5 Not Available [address], [address], 06/01/2024 15:00:52 05/31/2006/01/2024 BASIC METAB OLIC PANEL potassium 4.1 mmol/ L 3.5-5. 1 Not Available [address], [address], 06/01/2024 15:00:52 05/31/2006/01/2024 BASIC METAB OLIC PANEL chloride 104 mmol/ L 96-107 Not Available [address], [address], 06/01/2024 15:00:52 05/31/2006/01/2024 BASIC METAB OLIC PANEL anion gap 9.8 5.0-15 .0 Not Available [address], [address], 06/01/2024 15:00:52 05/31/2006/01/2024 BASIC METAB OLIC PANEL CO2 30 mmol/ L 21-32 Not Available [address], [address], 06/01/2024 15:00:52 05/31/2006/01/2024 BASIC METAB OLIC PANEL calcium 9.7 mg/dL 8.5-10 .3 Not Available [address], [address], 06/01/2024 15:00:52 05/31/2006/07/2024 IGF 1, LC/MS igf 1, lc/MS 129 NG/mL 34-245 Not Available [facility] [address], [address], 06/07/2024 14:43:26 05/31/20 24 06/07/2024 IGF 1, LC/MS Z score (female) 0.4 SD -2.0 - +2.0 This test was devel humza and its arnold tical perfo rmanc e kamari cteri stics have been deter mined by [facility]. It has not been clear ed or appro ariel by FDA. This assay has been valid ated pursu ant to the CLIA regul ation s and is used for clini laney purpo ses. Not Available [facility] [address], [address], 06/07/2024 14:43:26 05/31/2006/07/2024 ACTH, PLASM A acth, plasma 18 pg/mL 6-50 Refer ence range appli es only to speci mens colle cted betwe en 7am-1 0am. Not Available [facility] [address], [address], 06/07/2024 14:43:26 05/31/20 24 06/07/2024 PROLA CTIN prolactin 9.4 NG/mL normal Refer ence Range Femal es Non-p regna nt 3.0-3 0.0 Pregn ant 10.0- 209.0 Postm enopa usal 2.0-2 0.0 Not Available [facility] [address], [address], 06/07/2024 14:43:27 04/24/20 23 04/24/2023 LDCT, chest , for lung cance r scree luisito No observ ation record ed. [facility] [place] [address] [facility], [place], [address], 04/28/2023 17:05:43 04/27/20 23 04/27/2023 MAMMO , scree luisito, tomos ynthe sis, bilat eral MAMMO, SCREEN , WILLIAM, BILAT: 023. BI-RAD S: 1 CLINIC AL: 68-yea r old Female for Bilate ral Screen ing Mammog sav. No person al or first- degree family histor y of breast cancer . The patien t had a prior right breast biopsy . PRIOR EXAMS: Review ed previo us images from 2021, 2020, 2018 and 2017. MAMMOG ZURI TECHNI QUE: 3D mammog zuri (tomos ynthes is) and 2D mammog zuri (C-vie w) images are genera jillian. Images review ed with a CAD system . DENSIT Y C. Hetero geneou sly dense, which may obscur e small masses . MAMMOG ZURI FINDIN GS Bilate ral: No suspic ious mass, asymme try, microc alcifi cation , or other abnorm ality seen. CONCLU CAMRYN * No eviden ce of malign junaid. RECOMM ENDATI ONS Bilate ral * Annual screen ing mammog zuri. ADMINI STRATI VE: A lay summar y was mailed to your patien t jimy madhug the result s and recomm endati ons for follow -up. OVERAL L ASSESS MENT CATEGO RY BI-RAD S-1: Negati ve. The [employer] recomm ends annual screen ing mammog zuri beginn ing at age 40 for women with averag e risk of breast cancer . ELECTR ONICAL LY SIGNED : Jai Montaño ms, M.D. on 2022 at 04:05: 17 PM Reji francis Physic frank: Jai mckee [facility] (Imaging) [address], [place], [address], 04/27/2023 16:30:52 Result Notes None recorded. Problems Name Problem SNOMED Code Status Onset Date Resolution Date Notes Provider Name and Address Organization Details Recorded Time Joint pain 52105375 Completed 01/01/2023 CATHERINE Garza [address] [place] [address], [address] , [facility] 3 14:47:10 Backache 289479413 Completed 11/15/2014 Yeny Elizabeth NP [address] [place] [address], [address] , [facility] 5 20:40:22 Sinusiti s 71202817 Completed 11/15/2014 Yeny Elizabeth NP [address] [place] [address], [address] , [facility] 5 20:43:58 Sleep apnea 22166249 Active Not Available [facility] 4 00:24:30 Backache 704499126 Active Not Available [facility] 4 00:24:29 Impaired fasting glycemia 176034354 Active 2017 Not Available [facility] 4 00:24:29 Vitamin D deficien cy 22695700 Active 2020 Not Available [facility] 4 00:24:29 Multiple nodules of lung 382362915 Active 2020 non-canc erous. followed by Dr. Kim ti. 09/04/21 note - surveill ance is complete . Not Available [facility] 4 00:24:30 Chronic obstruct wesley pulmonar y disease 14513794 Active 2020 PFT 1 Not Available [facility] 4 00:24:29 Osteoart hritis of right hip joint 07638544224 9107 Active 2021 follows w/ [facility]. Not Available [facility] 4 00:24:29 History of subtotal thyroide ctomy 189748739 Active 2021 Not Available [facility] 4 00:24:30 Decrease d body mass index 5163430 Completed 202101/01/2023 CATHERINE Gazra [address] [place] [address], [address] , [facility] 3 13:54:15 Bone density finding 340541510 Active 2022 Not Available [facility] 4 00:24:29 Major depressi on, melancho lic type 846201705 Active 2022 Not Available [facility] 4 00:24:29 History of partial resectio n of colon 985481652 Active 2022 Not Available [facility] 4 00:24:30 Mixed hyperlip idemia 971186132 Active Not Available [facility] 4 00:24:29 Head and neck swelling 097351484 Completed 200206/29/2013 Not Available [facility] 3 02:04:11 Single major depressi ve episode, mild Completed 200611/15/2014 Yeny Elizabeth NP [address] [place] [address], [address] , [facility] 5 20:42:37 Benign neoplasm of skin of trunk, excludin g scrotum Completed 200506/29/2013 Not Available [facility] 3 02:04:05 Essentia l hyperten camryn 40783147 Active Not Available [facility] 4 00:24:30 Chronic nonalcoh olic liver disease 55019648 Active Not Available [facility] 4 00:24:30 Gastroes ophageal reflux disease 030188363 Active Not Available [facility] 4 00:24:29 Non-toxi c uninodul ar goiter 447664720 Completed 11/15/2014 Yeny Elizabeth NP [address] [place] [address], [address] , [facility] 5 20:42:37 Anxiety state 270353338 Completed 11/15/2014 Yeny Elizabeth NP [address] [place] [address], [address] , [facility] 5 20:42:37 Acute pharyngi tis 178494961 Completed 06/29/2013 Not Available [facility] 3 02:01:17 Allergic rhinitis 21540438 Active Not Available [facility] 4 00:24:30 Epidermo id cyst of skin 005756054 Completed 200506/29/2013 Not Available [facility] 3 02:02:53 Elevated blood-pr essure reading without diagnosi s of hyperten camryn 386938632 Completed 200211/15/2014 Yeny Elizabeth NP [address] [place], [address] , [facility] 5 20:40:22 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 Completed 11/15/2014 Yeny Elizabeth NP [address] [place] [address], [address] , [facility] 5 20:40:22 Organic sleep disorder 597615523 Completed 11/15/2014 Yeny Elizabeth NP [address] [place] [address], [address] , [facility] 5 20:40:22 Acute bronchit is 84560172 Completed 06/29/2013 Not Available [facility] 3 02:01:36 Malaise and fatigue 557651668 Completed 06/29/2013 Not Available [facility] 3 02:00:18 Blood in urine 45149426 Completed 200511/15/2014 Yeny Elizabeth NP [address] [place] [address], [address] , [facility] 5 20:43:58 Carpal tunnel syndrome 78040132 Active 2003 surgery 2010 Not Available [facility] 4 00:24:30 Kidney stone 01542286 Completed 200701/01/2023 CATHERINE Garza [address] [place], [address] , [facility] 3 14:47:07 Ureteric stone 62640462 Completed 200511/15/2014 Yeny Elizabeth NP [address] [place] [address], [address] , [facility] 5 20:43:58 Right upper quadrant pain 594304697 Completed 06/29/2013 Not Available [facility] 3 02:03:18 Sleep disorder 37132597 Completed 11/15/2014 Yeny Elizabeth NP [address] [place] [address], [address] , [facility] 5 20:40:22 Orthosta tic hypotens ion 10079086 Completed 11/15/2014 Yeny Elizabeth NP [address] [place] [address], [address] , [facility] 5 20:40:22 Lymphade nopathy 94517445 Completed 200206/29/2013 Not Available [facility] 3 02:03:13 Tobacco user 253502607 Completed 200211/15/2014 Yeny Elizabeth NP [address] [place] [address], [address] , [facility] 5 20:42:37 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 200511/15/2014 Yeny Elizabeth NP [address] [place] [address], [address] , [facility] 5 20:43:58 Sprain of ankle 35313489 Completed 200406/29/2013 Not Available [facility] 3 02:02:51 Syncope and collapse 484194490 Completed 11/15/2014 Yeny Elizabeth NP [address] [place] [address], [address] , [facility] 5 20:40:22 Joint pain in ankle and foot Completed 200406/29/2013 Not Available [facility] 3 02:01:26 Acute sinusiti s 10890802 Completed 06/29/2013 Not Available [facility] 3 02:02:20 Finding by method 678332945 Completed 200206/29/2013 Not Available [facility] 3 02:01:56 Breast lump 45120177 Completed 200211/15/2014 Yeny Elizabeth NP [address] [place] [address], [address] , [facility] 5 20:40:22 Common cold 53238658 Completed 06/29/2013 Not Available [facility] 3 02:00:28 Mammogra phy abnormal 725565718 Completed 200611/15/2014 Yeny Elizabeth NP [address] [place] [address], [address] , [facility] 5 20:45:31 Idiopath ic peripher al neuropat hy 66951413 Completed 200711/15/2014 Yeny Elizabeth NP [address] [place] [address], [address] , [facility] 5 20:42:37 On examinat ion - a rash Completed 06/29/2013 Not Available [facility] 3 02:00:49 Benign neoplasm of large intestin e 37188939 Active Not Available [facility] 4 00:24:30 Dysphagi a 47130282 Completed 11/15/2014 Yeny Elizabeth NP [address] [place] [address], [address] , [facility] 5 20:40:22 Abnormal cervical Papanico laou smear 162814138 Completed 200711/15/2014 Yeny Elizabeth NP [address] [place] [address], [address] , [facility] 5 20:55:49 Non-orga evelyn sleep disorder 345198325 Completed 200511/15/2014 Yeny Elizabeth NP [address] [place] [address], [address] , [facility] 5 20:40:22 Open wound of scalp 681731274 Completed 06/29/2013 Not Available [facility] 3 02:04:18 Low back pain 499520527 Completed 01/01/2023 CATHERINE Garza [address] [place] [address], [address] , [facility] 3 14:47:05 Hypothyr oidism 92399534 Completed 200211/15/2014 Yeny Elizabeth NP [address] [place] [address], [address] , [facility] 5 20:42:37 Mononeur itis 73575880 Completed 200701/01/2023 CATHERINE Garza [address] [place] [address], [address] , [facility] 3 14:47:13 Abnormal findings on diagnost ic imaging of skull and head 342020896 Active Not Available [facility] 4 00:24:29 Pain in limb 50624636 Completed 200406/29/2013 Not Available [facility] 3 02:00:56 Heartbur n 13242244 Completed 06/29/2013 Not Available [facility] 3 02:03:55 Difficul ty speaking Completed 11/15/2014 Yeny Elizabeth NP [address] [place] [address], [address] , [facility] 5 20:40:22 Notes:Some problems listed i n Documents: #[id number], #[id number], #[id number], #[id number], #[id number], #[id number] could not be added to this patient's chart. Please review these documents and add these problems to the patient's chart manually as needed. Problem Notes None recorded. Procedures Surgical History Date Name Laterality Status Provider Name and Address Organization Details Recorded Time 024 Smoking cessation counseling completed Rosa Tran LPN [facility] 06/21/2024 11:57:13 024 Smoking cessation counseling completed Rosa Tran LPN [facility] 05/03/2024 09:03:04 023 Smoking cessation counseling cancelled Rayna Stapleton MA [facility] 06/29/2023 09:58:39 023 Smoking cessation counseling cancelled Rosa Tran LPN [facility] 03/31/2023 14:40:47 023 Smoking cessation counseling completed CATHERINE Garza [address] [place] [address], [address], [facility] 01/01/2023 14:12:24 023 Medicare Wellness Visit completed Gisselle Cid MA [facility] 01/01/2023 13:36:59 022 Smoking cessation counseling completed Gisselle Cid, [place] 05/16/2022 14:20:29 022 Smoking cessation counseling completed Everardo Vazquez MD [address] [place], [address], [facility] 04/03/2022 10:41:44 022 Medicare Wellness Visit completed Xiomy Gooden [facility] 12/23/2021 13:50:31 022 Alcohol use screening completed Xiomy Gooden [facility] 12/23/2021 13:50:31 022 Cardiovascular disease risk reduction counseling completed Xiomy Gooden [facility] 12/23/2021 13:50:31 021 Smoking cessation counseling completed Loreta Gloria RN [facility] 07/18/2021 11:27:55 021 Smoking cessation counseling completed Haliey Fleming [facility] 06/05/2021 10:57:46 021 partial lobectomy of thyroid completed Yeny Elizabeth NP [address] [place], [address], [facility] 06/02/2021 12:35:36 021 Biopsy of thyroid completed Dixie Underwood LPN [facility] 01/03/2021 14:35:31 021 Medicare Wellness Visit completed Baldemar Thompson [facility] 12/06/2020 08:49:12 021 COPD Screening completed Baldemar Thompson [facility] 12/06/2020 11:33:22 021 prevention-cardio vascular risk reduction counseling completed Baldemar Thompson [facility] 12/06/2020 08:49:12 021 prevention-annual alcohol misuse screening completed Baldemar Thompson [facility] 12/06/2020 08:49:12 021 biopsy of thyroid completed Dixie Underwood LPN [facility] 12/20/2020 15:57:05 021 Medicare Wellness Visit completed Baldemar Thompson [facility] 08/21/2020 08:16:38 021 prevention-cardio vascular risk reduction counseling completed Baldemar Thompson [facility] 08/21/2020 08:16:38 021 prevention-annual alcohol misuse screening completed Baldemar Thompson [facility] 08/21/2020 08:16:38 019 Nebulizer Tx completed Daneyyang Lozoyatega [facility] 09/14/2018 18:02:56 014 Other (specify) completed Yeny Elizabeth NP [address] [place], [address], [facility] 11/15/2014 20:37:49 012 Suture/staple Removal completed Yeny Elizabeth NP [address] [place], [address], [facility] 09/19/2011 17:19:53 011 Carpal Tunnel Surgery completed Yeny Elizabeth NP [address] [place], [address], [facility] 09/12/2011 12:33:44 004 completed Not Available [facility] 06:05:52 Back Surgery completed Yeny alexandre NP [address] [place], [address], [facility] 04/10/2015 11:56:53 repair of tendon completed Dixie Underwood LPN [facility] 12/20/2020 15:57:18 Imaging Results Imaging Date Name Status LastModified by [facility]iz [facility] Details LastModified Time 04/24/2023 LDCT, chest, for lung cancer screening completed [facility] [place] [address] [place], [address], 04/28/2023 17:05:43 04/27/2023 MAMMO, screening, tomosynthesis, bilateral completed rafi [facility] (Imaging) [address], [place], [address], 04/27/2023 16:30:52 Procedure Notes None recorded. Medical Equipment None Reported. Allergies Allergen ID Allergen Name Allergen Category Reaction Reaction Severity Criticality Documentation Date Start Date Code Code System Note Provider Name and Address Organization Details Recorded Time 945964 metoprolo l Not available Not available Not available Not available 01/24/2013 6918 RxNorm marito cardi a. Yeny Elizabeth NP [address] [place], [address], [facility] 3 11:47:43 520162 spironola ctone medicatio n dizziness Not available Not available 01/25/2016 9997 RxNorm [facility]eny Elizabeth [facility] [address] [facility] [place], [address], [facility] 6 16:15:07 46865 penicilli n G Not available itching Not available Not available 07/30/2009 7980 RxNorm insid e of skin Not Available [facility] 1 06:05:20 446855 bupropion Not available other Not available Not available 01/26/2017 15882 RxNorm nonst op cryin gYeny NP [address] [facility] [place], [address], [facility] 7 16:46:02 38741 hydrochlo rothiazid e medicatio n other severe Not available 10/25/2011 5487 RxNorm ortho stasi s and synco pe Yeny Elizabeth NP [address] [place], [address], [facility] 2 18:26:45 28011 amlodipin e medicatio n other severe Not available 10/25/2011 55896 RxNorm ortho stasi s and synco pe Yeny Elizabeth NP [address] [facility] [place], [address], [facility] 2 18:26:45 35151 lisinopri l medicatio n cough Not available Not available 10/28/2011 38218 RxNorm Yeny Elizabeth NP [address] [facility] [place], [address], [facility] 2 11:17:27 81933 Diovan medicatio n other mild Not available 11/10/2011 25531 2 RxNorm diarr hea and insom caridad Yeny Elizabeth, ANITRA [address] [place] [address], [facility] [place], [address], [facility] 2 11:50:20 Medications Name Sig Start Date Stop Date Status Note LastModified by Organization Details LastModified Time labetalol hcl 200 mg tabs active Not Available Not Available Not Available sertralin e hcl 100 mg tabs active Not Available Not Available Not Available losartan potassium 50 mg tabs active Not Available Not Available Not Available labetalol hcl 100 mg tabs active Not Available Not Available Not Available labetalol hcl 300 mg tabs 1/2 tab twice a day. 12/20 completed 12/06/20 duplicat e -sk Not Available Not Available Not Available losartan potassium 100 mg tabs active Not Available Not Available Not Available nifedical xl 60 mg tb24 active Not Available Not Available Not Available famotidin e 40 mg tabs active Not Available Not Available Not Available tramadol hcl 50 mg tabs active Not Available Not Available Not Available nifedical xl 30 mg tb24 07/28 completed Not Available Not Available Not Available losartan 50 mg tablet take 1 tablet by mouth once daily active Not Available Not Available No t Available nifedipin e ER 30 mg tablet,ex tended release 24 hr TAKE 1 TABLET BY MOUTH TWICE DAILY active Not Available Not Available No t Available clotrimaz ole 10 mg darian Take 1 tablet 5 times a day by oral route for 7 days. 02/04 completed Not Available Not Available Not Available prednison e 10 mg tablet take 6 tablets by mouth once daily for 3 days then 5 tablets by m... (REFER TO PRESCRIP TION NOTES). 06/26 completed Not Available Not Available Not Available atorvasta tin 20 mg tablet TAKE 1 TABLET BY MOUTH ONCE DAILY active pt states not taking. 06/23/24 Not Available Not Available Not Available labetalol 200 mg tablet Take 1 tablet by mouth twice a day active Not Available Not Available No t Available clindamyc in HCl 300 mg capsule TAKE 1 CAPSULE BY MOUTH FOUR TIMES DAILY UNTIL ALL TAKEN 02/04 completed Not Available Not Available Not Available azithromy samara 250 mg tablet TAKE 2 TABLETS BY MOUTH TODAY, THEN TAKE 1 TABLET DAILY FOR 4 DAYS 05/19 completed Not Available Not Available Not Available ofloxacin 0.3 % eye drops 01/01 completed not using 05/16/22 saundra Not Available Not Available Not Available famotidin e 40 mg tablet TAKE 1 TABLET BY MOUTH TWICE DAILY active Not Available Not Available No t Available prednison e 20 mg tablet TAKE 2 TABLETS BY MOUTH DAILY FOR 5 DAYS 02/04 completed Not Available Not Available Not Available sertralin e 100 mg tablet TAKE 2 TABLETS BY MOUTH DAILY 2023 active Not Available Not Available Not Avai lable clindamyc in HCl 150 mg capsule 10/05 completed Not Available Not Available Not Available Tylenol Arthritis Pain 650 mg tablet,ex tended release TAKE 1 TABLET BY MOUTH EVERY 8 HOURS NEEDED FOR PAIN active Not Available Not Available No t Available promethaz ine 6.25 mg-codein e 10 mg/5 mL syrup TAKE 5 ML BY MOUTH EVERY 4 HOURS NEEDED 06/26 completed Not Available Not Available Not Available Flonase 50 mcg/actua tion nasal spray,otis pension Inhale 2 sprays in each nostril by intranas al route once daily 2015 active Not Available Not Available Not Avai lable nifedipin e ER 30 mg tablet,ex tended release TAKE 1 TABLET TWICE A DAY 04/03 completed Not Available Not Available Not Available acetamino phen 300 mg-codein e 30 mg tablet take 1 tablet by mouth every 4 hours if needed 01/22 completed Not Available Not Available Not Available amlodipin e 5 mg tablet Take 1 tablet every day by oral route. 05/05 completed Not Available Not Available Not Available Diovan 80 mg tablet Take 1 tablet every day by oral route. 2011 active Not Available Not Available Not Avai lable sulfameth oxazole 800 mg-trimet hoprim 160 mg tablet TK 1 T PO Q 12 H FOR 7 DAYS 07/03 completed Not Available Not Available Not Available tramadol 50 mg tablet TAKE 1 TABLET BY MOUTH DAILY NEEDED FOR PAIN active Not Available Not Available No t Available spironola ctone 25 mg tablet take 1 tablet by mouth once daily 07/28 completed Not Available Not Available Not Available Zantac 150 mg tablet Take 1 tablet twice a day by oral route for 90 days. 10/11 completed increase d dose. Not Available Not Available Not Available oxycodone -acetamin ophen 5 mg-325 mg tablet TK 1 T PO Q 6 H PRF PAIN 07/03 completed not using 07/03/20 20 -sk Not Available Not Available Not Available amlodipin e 10 mg tablet Take 1 tablet every day by oral route for 90 days. 08/03 completed Not Available Not Available Not Available doxycycli ne monohydra te 100 mg capsule TAKE ONE CAPSULE BY MOUTH TWICE A DAY 07/28 completed Not Available Not Available Not Available erythromy samara 5 mg/gram (0.5 %) eye ointment apply SPARINGL Y TO UPPER EYELID INCISION S twice a day for 3 days 01/22 completed Not Available Not Available Not Available oseltamiv ir 75 mg capsule TAKE ONE CAPSULE BY MOUTH EVERY DAY FOR 10 DAYS 11/24 completed Not Available Not Available Not Available lisinopri l 10 mg tablet Take 1 tablet every day by oral route. 2010 active Not Available Not Available Not Avai lable omeprazol e 20 mg capsule,d elayed release Take 1 capsule every day by oral route. 2010 active Not Available Not Available Not Avai lable lisinopri l 5 mg tablet Take 1 tablet every day by oral route. 09/04 completed dose change Not Available Not Available Not Available hydrochlo rothiazid e 25 mg tablet Take 1 tablet every day by oral route. 2010 active Not Available Not Available Not Avai lable ergocalci ferol (vitamin D2) 1,250 mcg (50,000 unit) capsule Take 1 capsule every week by oral route. 12/20 completed not using 12/06/20 -sk Not Available Not Available Not Available labetalol 300 mg tablet TAKE ONE-HALF TABLET BY MOUTH TWICE DAILY active Not Available Not Available No t Available methylpre dnisolone 4 mg tablets in a dose pack TAKE 6 TABLETS ON DAY 1 DIRECTED ON PACKAGE AND DECREASE BY 1 TAB EACH DAY FOR A TOTAL OF 6 DAYS 06/26 completed Not Available Not Available Not Available labetalol 100 mg tablet take 1 tablet by mouth twice a day 07/28 completed Not Available Not Available Not Available albuterol sulfate HFA 90 mcg/actua tion aerosol inhaler Inhale 2 puffs every 4 hours by inhalati on route. active Not Available Not Available No t Available losartan 100 mg tablet TAKE 1 TABLET BY MOUTH IN THE EVENING 2024 active Not Available Not Available Not Catherine lable Nifedical XL 60 mg tablet,ex tended release take 1 tablet by mouth twice a day 07/28 completed Not Available Not Available Not Available oxycodone 5 mg tablet TAKE 1 TABLET BY MOUTH EVERY 4 HOURS NEEDED FOR SEVERE PAIN (DO NOT DRIVE OR DRINK ALCOHOL WHILE ON THIS MEDICATI ON) 07/18 completed Pt no longer using 06/05/21 NMT Not Available Not Available Not Available metoprolo l tartrate 25 mg tablet Take 1 tablet twice a day by oral route for 30 days. 2012 active Not Available Not Available Not Catherine andino Nicoderm CQ 1 pathc transder mal daily 2022 active per pulm note Not Available Not Available Not Available Aspir-81 1 tab daily 04/27 completed Not Available Not Available Not Available cholecalc iferol (vitamin D3) 50 mcg (2,000 unit) capsule TAKE 1 CAPSULE BY MOUTH DAILY 2021 active Not Available Not Available Not Catherine andino GaviLyte- G 236 gram-22.7 4 gram-6.74 gram-5.86 gram oral solution 10/05 completed Not Available Not Available Not Available Breo Ellipta 100 mcg-25 mcg/dose powder for inhalatio n INHALE 1 PUFF INTO THE LUNGS DAILY active Not Available Not Available No t Available [facility] (PF) 45 mcg (15 mcg x 3)/0.5 mL intramusc ular syringe inject 0.5 millilit er intramus cularly active Not Available Not Available No t Available fluticaso ne 113 mcg-salme terol 14 mcg/actua tion breath activated powdr INHALE 1 PUFF BY MOUTH EVERY 12 HOURS active Not Available Not Available No t Available [facility]2016-2018 (PF) 45 mcg(15 mcg x 3)/0.5 mL intramusc ular syringe inject 0.5 millilit er intramus cularly 05/19 completed Not Available Not Available Not Available Trelegy Ellipta 100 mcg-62.5 mcg-25 mcg powder for inhalatio n USE 1 INHALATI ON BY MOUTH DAILY 2022 active Not Available Not Available Not Avai lable fluticaso ne 113mcg-sa lmeterol 14mcg/act uation breath act,powde r sensor Inhale 1 puff twice a day by inhalati on route. 2022 active per pulm note Not Available Not Available Not Available Vitals Date Recorded Body height Body mass index (BMI) Body weight Heart rate Systolic blood pressure Diastolic blood pressure Provider Name and Address Organization Details Last Updated DateTime 3 161.29 cm 20 kg/m2 89698.3 3 g 56 /min 142 mm[Hg] 82 mm[Hg] Gisselle Cid [facility] 3 13:45:40 Date Recorded Systolic blood pressure Diastolic blood pressure Provider Name and Address Organization Details Last Updated DateTime 01/01/2023 144 mm[Hg] 82 mm[Hg] CATHERINE Garza [address] [place] [address], [id number], [facility] 01/01/2023 14:44:45 Date Recorded Heart rate Systolic blood pressure Diastolic blood pressure Provider Name and Address Organization Details Last Updated DateTime 05/01/2023 52 /min 131 mm[Hg] 86 mm[Hg] Jaida Rosales [facility] 05/01/2023 14:27:03 Date Recorded Body height Heart rate Systolic blood pressure Diastolic blood pressure Provider Name and Address Organization Details Last Updated DateTime 05/18/2023 161.29 cm 50 /min 164 mm[Hg] 76 mm[Hg] Jaimee Lowe RN BSN [facility] 05/18/2023 11:57:49 Date Recorded Body height Provider Name an d Address Organization Details Last Updated DateTime 06/29/2023 161.29 cm Rayna Stapleton [facility] 06/29/2023 09:58:50 Date Recorded Body height Body mass index (BMI) Body weight Heart rate Systolic blood pressure Diastolic blood pressure Provider Name and Address Organization Details Last Updated DateTime 4 161.29 cm 20.3 kg/m2 32580.1 1 g 52 /min 128 mm[Hg] 78 mm[Hg] Minerva Soto CMA [facility] 4 13:56:26 Date Recorded Body height Body mass index (BMI) Body weight Heart rate Systolic blood pressure Diastolic blood pressure Provider Name and Address Organization Details Last Updated DateTime 4 160.02 cm 19.2 kg/m2 01838.4 1 g 49 /min 121 mm[Hg] 65 mm[Hg] Rosa Tran LPN [facility] 4 08:51:37 Date Recorded Body height Body mass index (BMI) Body weight Heart rate Systolic blood pressure Diastolic blood pressure Provider Name and Address Organization Details Last Updated DateTime 4 160.02 cm 19.6 kg/m2 86634.0 3 g 56 /min 136 mm[Hg] 74 mm[Hg] Rosa Tran LPN [facility] 4 13:55:04 Date Recorded Systolic blood pressure Diastolic blood pressure Provider Name and Address Organization Details Last Updated DateTime 02/06/2023 121 mm[Hg] 81 mm[Hg] CATHERINE Garza [address] [place] [address], [id number] 02/06/2023 16:28:51 Date Recorded Systolic blood pressure Diastolic blood pressure Systolic blood pressure Diastolic blood pressure Systolic blood pressure Diastolic blood pressure Systolic blood pressure Diastolic blood pressure Provider Name and Address Organization Details Last Updated DateTime 3 148 mm[Hg] 84 mm[Hg] 160 mm[Hg] 97 mm[Hg] 152 mm[Hg] 90 mm[Hg] 171 mm[Hg] 87 mm[Hg] Rayna Stapleton [facility] 3 15:53:30 Date Recorded Systolic blood pressure Diastolic blood pressure Provider Name and Address Organization Details Last Updated DateTime 07/27/2023 117 mm[Hg] 78 mm[Hg] Radha Saini [facility] 07/27/2023 14:36:24 Social History Question Answer Notes LastModified by Organization Details LastModified Time Tobacco Smoking Status Current Some Day Smoker PT currently smoking [facility] 09:45:37 What Is Your Level Of Alcohol Consumption? Occasional Occasionally Information not available 04/03/2022 Do You Wear A Helmet When Biking? No No Bike Information not available 01/22/2015 What Is Your Level Of Caffeine Consumption? Moderate Information not available 06/26/2011 How Much Tobacco Do You Chew? None Information not available 01/22/2015 What Type Of Diet Are You Following? 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 6-10yearssinc elastcigarett e [email or web address] Information not available 06/05/2021 How Many Days In The Past Year Have You Had A Heavy Drinking Consumption (4+ Female, 5+ Male)? 3 Information not available 01/22/2015 Are There Any Guns Present In Your Home? No Information not available 06/26/2011 Live Alone Or With Others? Alone Information not available 06/26/2011 Patient Has Health Care Proxy Signed And In Chart No Evelin(sister ) [email or web address] Information not available 06/23/2018 CCM Consent Discussion 07/08/2021 [email or web address] Information not available 07/11/2021 Marital Status Single Information not available 06/26/2011 Mosquito Repellent Used Routinely Yes [email or web address] Information not available 06/26/2011 What Was The Date Of Your Most Recent Tobacco Screening? 02/05/2024 [email or web address] Information not available 02/05/2024 How Many Children Do You Have? 0 Information not available 06/26/2011 Are There Any Occupational Health Risks Where You Work? No Information not available 01/22/2015 What Is Your Current Pack Years? 20-29packyear s Information not available 04/27/2015 Seat Belts Used Routinely Yes Information not available 06/26/2011 Are You Sexually Active? Yes Information not available 06/26/2011 Smoke Alarm In Home Yes Information not available 06/26/2011 At What Age Did You Start Smoking Tobacco? 17 Information not available 06/26/2011 How Much Tobacco Do You Smoke? No Information not available 04/03/2022 What Types Of Sporting Activities Do You Participate In? No Information not available 01/22/2015 General Stress Level Medium Information not available 06/26/2011 Do You Use Any Illicit Or Recreational Drugs? No Information not available 05/05/2024 Do You Use Sunscreen Routinely? Yes Information not available 06/26/2011 How Many Years Have You Smoked Tobacco? 41 [email or web address] Information not available 06/05/2021 Do You Or Have You Ever Used Any Other Forms Of Tobacco Or Nicotine? Yes Information not available 04/03/2022 Sex: Unknown Functional Status None recorded. Mental Status None recorded. Family History Relationship Description Onset Age of this Age Resolved Age Notes LastModified by Organization Details LastModified Time Mother Neoplasm of brain 29 Not available 2014 20:30:38 Father Myocardial infarction 62 Not available 01/22 20:30:38 Brother Suspected prostate cancer 56 Not available 2014 20:30:38 Sister Seizure Not available 0 01/26/2017 16:36:49 Sister Hepatic failure 55 Not available 2018 17:40:50 Notes:mother- 29 of brain tu mor father- 62 heart attack Brother- skin CA. Sister (55)- CVA after kidney/liver issues. No kids. 07/30: Brother: doing OK s/p prostate CA. 4 other sisters: one older. 3 younger. Dad's side has CVD. Mom's side lived long. 03/31: No changes. Medical History Condition Response NEUROLOGIC Y Colon Polyps Y Skin Cancer Y Hyperlipidemia Y GASTROINTESTINAL Hypertension Y Gynecological HistoryNo gynecological history recorded. Obstetrics History GPAL:G 0 P 0 0 0 0 Immunizations Vaccine Type Date Status Note Provider Nam e and Address Organization Details Recorded Time influenza, seasonal, intradermal, preservative free 1 completed Not Available [facility] 08/27/2019 02:34:20 Td(adult) unspecified formulation 6 completed Not Available [facility] 09/26/2023 00:24:31 influenza, unspecified formulation 7 completed Not Available [facility] 09/26/2023 00:24:31 Influenza, split virus, trivalent, preservative 2 completed Not Available [facility] 08/27/2019 02:32:24 Tdap 3 completed Not Available [facility] 08/27/2019 02:28:48 Novel [id number] 9 completed Not Available [facility] 08/27/2019 02:27:45 Influenza, split virus, trivalent, PF 3 completed Not Available [facility] 08/27/2019 02:18:58 Influenza, split virus, quadrivalent, PF 5 completed Not Available [facility] 08/27/2019 02:19:46 zoster live 5 completed Not Available [facility] 08/27/2019 02:19:45 influenza, unspecified formulation 6 completed Not Available [facility] 09/26/2023 00:24:31 influenza, unspecified formulation 7 completed Not Available [facility] 09/26/2023 00:24:31 Influenza, high-dose, quadrivalent, PF 0 completed ALISSA Hobbs, [facility] 05/28/2020 08:46:57 pneumococcal polysaccharide PPV23 0 completed BLANCA DOYLE, CAR SHAKEOUT OPERATOR [address] [place], [address], [facility] 06/20/2020 15:02:02 Influenza, split virus, trivalent, preservative 0 completed Not Available [facility] 08/27/2019 02:17:47 COVID-19, mRNA, LNP-S, PF, 30 mcg/0.3 mL dose 1 completed Not Available [facility] 09/26/2023 00:24:30 COVID-19, mRNA, LNP-S, PF, 30 mcg/0.3 mL dose 1 completed Not Available [facility] 09/26/2023 00:24:30 Td (adult), 2 Lf tetanus toxoid, preservative free, adsorbed 3 completed CATHERINE Garza [address] [place] [address], [phone], [facility] 01/02/2023 07:56:47 Influenza, high-dose, quadrivalent, PF 1 completed Not Available [facility] 09/26/2023 00:24:30 COVID-19, mRNA, LNP-S, PF, 30 mcg/0.3 mL dose 1 completed Not Available [facility] 09/26/2023 00:24:31 COVID-19, mRNA, LNP-S, PF, 30 mcg/0.3 mL dose 2 completed Not Available [facility] 09/26/2023 00:24:31 zoster recombinant 2 completed Not Available [facility] 09/26/2023 00:24:30 Influenza, split virus, quadrivalent, preservative 2 completed Not Available [facility] 09/26/2023 00:24:30 Past Encounters Encounter ID Performer Location Encounter Start Date Encounter Closed Date Diagnosis/Indication Diagnosis SNOMED-CT Code Diagnosis ICD10 Code Diagnosis Note [id number] [facility], OFFICE [address] [place] [address] 10/06/2002 15:52:18 08/30/2008 02:02:29 [id number] Radiology , [facility] [address] [place] [address] 10/06/2002 00:00:00 08/30/2008 02:02:29 [id number] Radiology , [address] [address] 10/06/2002 16:36:55 08/30/2008 02:02:29 [id number] LAB - [address] [address] 10/07/2002 15:46:52 08/30/2008 02:02:29 [id number] LAB - [address] [address] 11/08/2002 16:26:26 08/30/2008 02:02:29 [id number] [facility], OFFICE [address] [place] [address] 11/08/2002 15:17:41 08/30/2008 02:02:29 [id number] , [facility], OFFICE [address] [place] [address] 12/08/2002 15:25:39 08/30/2008 02:02:29 [id number] LAB - [facility] [address] [place] [address] 12/08/2002 15:51:11 08/30/2008 02:02:29 [id number] Radiology , [address] [address] 12/20/2002 14:48:00 08/30/2008 02:02:29 [id number] Radiology , [address] [address] 12/20/2002 00:00:00 08/30/2008 02:02:29 [id number] , [facility], [address]ICE [address] [place] [address] 03/06/2003 10:13:04 08/30/2008 02:02:29 [id number] , [facility], [address] [place] [address] 11/22/2003 12:59:27 11/22/2003 14:55:43 [id number] Radiology , [facility] [address] [place] [address] 12/26/2003 15:20:58 08/30/2008 02:02:29 [id number] Radiology , [facility] [address] [place] [address] 12/26/2003 00:00:00 08/30/2008 02:02:29 [id number] , [facility], [address]ICE [address] [place] [address] 01/19/2004 14:11:55 01/19/2004 15:54:03 [id number] [facility], [address] [address] 03/27/2004 10:47:20 03/28/2004 09:21:52 [id number] LAB - [facility] [address] [place] [address] 10/15/2004 14:29:29 10/15/2004 14:29:57 [id number] , [facility], [address] [place] [address] 12/11/2004 15:06:41 12/11/2004 17:50:16 [id number] Radiology , [facility] [address] [place] [address] 12/11/2004 16:00:54 12/12/2004 08:22:27 [id number] Radiology , [facility] [address] [place] [address] 12/11/2004 00:00:00 08/30/2008 02:02:29 [id number] Radiology , [facility] [address] [place] [address] 01/02/2005 14:50:32 08/30/2008 02:02:29 [id number] Radiology , [facility] [address] [place] [address] 01/02/2005 00:00:00 08/30/2008 02:02:29 [id number] FP, [facility], OFFICE [address] [facility] [place] [address] 05/13/2005 14:40:24 08/30/2008 02:02:29 [id number] Radiology , [facility] [address] [place] [address] 05/13/2005 15:36:22 08/30/2008 02:02:29 [id number] Radiology , [address] [place] [address] 05/13/2005 00:00:00 08/30/2008 02:02:29 [id number] Physical Therapy, [facility] [place] [address] 05/26/2005 12:56:12 08/30/2008 02:02:29 [id number] Physical Therapy, [address] [place] [address] 06/11/2005 15:17:06 08/30/2008 02:02:29 [id number] FP, [facility], [address] [place] [address] 12/24/2005 15:41:01 12/25/2005 08:44:40 [id number] FP, [facility], OFFICE [address] [place] [address] 12/24/2005 15:41:01 12/25/2005 08:44:40 [id number] Radiology , [facility] [address] [place] [address] 01/15/2006 14:31:58 01/16/2006 09:26:07 [id number] Radiology , [facility] [address] [place] [address] 01/15/2006 00:00:00 08/30/2008 02:02:29 [id number] FP, [facility], OFFICE [address] [place] [address] 04/22/2006 15:44:51 04/23/2006 08:28:48 [id number] LAB - [facility] [address] [place] [address] 04/22/2006 16:15:54 04/22/2006 16:16:11 [id number] , [facility], OFFICE [address] [place] [address] 04/30/2006 15:02:17 05/01/2006 08:35:41 [id number] Radiology , [facility] [address] [place] [address] 05/31/2007 14:16:16 06/01/2007 09:45:04 [id number] Radiology , [facility] [address] [place] [address] 05/31/2007 00:00:00 08/30/2008 02:02:29 [id number] , [facility], OFFICE [address] [place] [address] 06/01/2007 15:54:13 08/30/2008 02:02:29 [id number] , [facility], OFFICE [address] [place] [address] 07/06/2007 15:59:53 08/30/2008 02:02:29 [id number] Radiology , [facility] [address] [facility] [address] 07/06/2007 15:26:24 07/07/2007 09:44:25 [id number] Radiology , [facility] [address] [place] [address] 07/06/2007 00:00:00 08/30/2008 02:02:29 [id number] Radiology , [facility] [address] [place] [address] 07/06/2007 17:40:10 07/07/2007 09:44:33 [id number] Radiology , [facility] [address] [place] [address] 07/06/2007 00:00:00 08/30/2008 02:02:29 [id number] FP, [facility], OFFICE [address] [place] [address] 12/20/2007 09:22:27 08/30/2008 02:02:29 [id number] LAB - [facility] [address] [place] [address] 12/20/2007 09:59:25 12/20/2007 09:59:40 [id number] Radiology , [facility] [address] [place] [address] 06/24/2008 11:14:13 06/26/2008 09:15:42 [id number] LAB - UTC [address] [place] [address] 07/24/2008 12:24:22 07/24/2008 12:24:31 [id number] FP, UTC, [address]ICE [address] [place] [address] 07/24/2008 11:11:08 08/30/2008 02:02:29 [id number] Radiology , [facility] [address] [place] [address] 6 07/30/2009 12:03:57 07/31/2009 14:41:39 [id number] FP, [facility], OFFICE [address] [place] [address] 07/30/2009 12:53:39 08/01/2009 09:41:41 [id number] FP, [facility], [address] [place] [address] 6 09/03/2009 10:36:11 09/05/2009 09:01:25 [id number] FP, [facility], [address] [place] [address] 02/18/2010 16:06:54 02/21/2010 11:14:25 [id number] FP, UTC, [address] [place] [address] 6 03/04/2010 10:51:19 03/05/2010 09:13:07 [id number] FP, [facility], OFFICE [address] [place] [address] 04/08/2010 10:49:52 04/10/2010 12:33:40 [id number] FP, UTC, [address] [place] [address] 05/06/2010 11:06:59 05/09/2010 08:14:35 [id number] FP, UTC, [address] [place] [address] 6 09/04/2010 10:12:54 09/09/2010 09:54:47 [id number] Radiology , [facility] [address] [place] [address] 6 09/04/2010 11:35:48 09/05/2010 13:47:30 [id number] FP, C, OFFICE [address] [place] [address] 02/17/2011 15:12:45 02/17/2011 16:18:23 [id number] FP, [facility], OFFICE [address] [place] [address] 03/03/2011 11:25:18 03/03/2011 12:35:48 [id number] FP, C, OFFICE [address] [facility] [place] [facility] [address] 05/05/2011 11:10:16 05/05/2011 12:18:53 [id number] FP, C, OFFICE [address] [place] [place] [address] 06/16/2011 11:24:27 06/16/2011 12:27:11 [id number] FP, C, OFFICE [address] [place] [place] [address] 6 09/12/2011 11:49:49 09/12/2011 12:53:46 [id number] FP, C, OFFICE [address] [place] [place] [address] 09/15/2011 10:11:06 09/15/2011 11:20:27 [id number] Radiology , C [address] [place] [place] [address] 09/15/2011 11:18:59 09/22/2011 11:25:46 [id number] Radiology , [facility] [address] [place] [place] [address] 6 09/15/2011 11:22:42 09/22/2011 11:26:39 [id number] Radiology , C [address] [place] [address] 6 09/15/2011 13:02:14 09/22/2011 11:27:06 [id number] FP, C, OFFICE [address] [place] [place] [address] 6 09/19/2011 16:05:15 09/19/2011 17:14:17 [id number] FP, C, OFFICE [address] [place] [place] [address] 10/16/2011 11:04:47 10/16/2011 12:36:29 [id number] FP, [facility], OFFICE [address] [place] [facility] [address] 10/23/2011 10:47:33 10/23/2011 11:31:44 [id number] , [facility], OFFICE [address] [place] [place] [address] 10/28/2011 10:53:53 10/28/2011 11:41:32 [id number] , [facility], OFFICE [address] [place] [place] [address] 6 11/10/2011 11:00:59 11/10/2011 12:05:22 [id number] , [facility], OFFICE [address] [place] [place] [address] 6 12/22/2011 11:30:06 12/22/2011 12:11:38 [id number] Balbir Cruz MD Radiology , [facility] [address] [place] [address] 05/03/2012 11:01:39 05/04/2012 10:48:40 [id number] Yeny Elizabeth NP , [facility], OFFICE [address] [place] [place] [address] 05/11/2012 11:43:11 05/11/2012 12:45:41 [id number] Stephy Mccloud CMA , [facility], OFFICE [address] [place] [address] 6 05/13/2012 06:44:42 05/13/2012 16:24:11 [id number] Stacy Echeverria , [facility], OFFICE [address] [place] [address] 6 10/11/2012 14:33:17 10/11/2012 17:18:16 [id number] Antonio Urbano MD Radiology , [facility] [address] [place] [address] 6 10/18/2012 11:02:02 10/19/2012 10:11:53 [id number] Yeny Elizabeth NP FP, [facility], OFFICE [address] [place] [address] 6 11/29/2012 11:09:20 11/29/2012 12:09:21 [id number] Zoila Cooper FP, [facility], OFFICE [address] [place] [address] 6 12/27/2012 11:13:39 12/27/2012 12:12:31 [id number] ANITRA Guidry, [facility], OFFICE [address] [place] [address] 6 01/24/2013 10:58:06 01/24/2013 11:59:15 [id number] QASIM Arnett, [facility], OFFICE [address] [place] [address] 6 05/02/2013 10:58:25 05/02/2013 12:23:22 Acute bronchitis 39549139 Joint pain 08483949 Influenza vaccine needed [id number] [id number] Yeny Elizabeth NP , [facility], OFFICE [address] [place] [address] 6 12/26/2013 15:36:32 12/26/2013 16:51:55 Adult health examination [id number] see Risk Assessment and Lifestyle Change Counseling section above Allergic rhinitis 81751572 Backache 988946634 Sinusitis 25998085 Screening for malignant neoplasm of cervix 351477439 Thyroid nodule 339877058 [id number] ANITRA Guidry, [facility], OFFICE [address] [place] [address] 6 01/22/2015 13:40:10 01/22/2015 14:50:12 Adult health examination 080971281 see Risk Assessment and Lifestyle Change Counseling section above Benign ess ential hypertension 8856129 Blood pressure at goal Backache 890987186 Major depr ession, melancholic type 926858038 Gastroesop hageal reflux disease 143183909 Sleep apnea 37062237 [id number] Nimo HICKMAN [facility], OFFICE [address] [place] [address] 6 04/10/2015 11:01:34 04/10/2015 12:19:45 Lifestyle 154744268 Benign ess ential hypertension 4300038 Blood pressure at goal Backache 711209849 Varicella vaccination 27958885 Influenza vaccine needed 5214150766 013 [id number] VICK [facility], OFFICE [address] [place] [address] 6 04/27/2015 11:53:26 04/27/2015 12:51:23 Backache 363023153 Benign ess ential hypertension 2975292 Blood pressure at goal Will be getting another 24hr monitor by nephsarika cheng due to labile BP, difficult to control [id number] Rhianna Pabon LPN FP, [facility], OFFICE [address] [place] [address] 6 06/04/2015 11:08:23 06/04/2015 14:55:19 Tuberculosis screening 566702521 Z11.1 [id number] Rhianna Pabon LPN FP, [facility], OFFICE [address] [place] [address] 6 06/18/2015 11:15:27 06/18/2015 13:05:30 Tuberculosis screening 871667470 Z11.1 [id number] Yeny Elizabeth NP FP, [facility], OFFICE [address] [place] [address] 6 07/26/2015 11:30:59 07/26/2015 12:23:47 Benign essential hypertension 8207020 I10 Blood pressure NOT at goal. [id number] Yeny Elizabeth NP FP, [facility], OFFICE [address] [place] [address] 6 01/25/2016 15:49:01 01/29/2016 10:59:33 Adult health examination 928487685 Z00.00 see Risk Assessment and Lifestyle Change Counseling section above Benign ess ential hypertension 2950632 I10 Blood pressure NOT at goal. Mixed hyperlipidemia 267 766659 E78.2 [id number] ANITRA Guidry, [facility], OFFICE [address] [place] [address] 6 02/29/2016 09:37:18 02/29/2016 10:27:55 Hand pain 73469589 M79.642 Benign ess ential hypertension 7924399 I10 Blood pressure NOT at goal. [id number] Yeny Elizabeth NP FP, [facility], OFFICE [address] [place] [address] 6 07/28/2016 14:23:55 07/28/2016 15:14:02 Benign essential hypertension 8082209 I10 Blood pressure NOT at goal despite 3 agents. Can't tolerate spironolac tone. Mixed hyperlipidemia 267 389825 E78.2 Acute uppe r respiratory infection 68668021 J06.9 [id number] Yeny Elizabeth NP FP, [facility], OFFICE [address] [place] [address] 6 01/26/2017 15:38:43 01/26/2017 17:01:04 Adult health examination 201061117 Z00.00 see Risk Assessment and Lifestyle Change Counseling section above Benign ess ential hypertension 7103454 I10 Blood pressure at goal. Backache 955199872 M54.9 [id number] Yeny Elizabeth NP FP, [facility], OFFICE [address] [place] [address] 6 05/19/2017 15:23:45 05/19/2017 16:05:28 Cough 61035344 R05 Benign ess ential hypertension 2757071 I10 Blood pressure not at goal. [id number] Yeny Elizabeth NP , [facility], OFFICE [address] [place] [address] 6 06/26/2017 07:49:26 06/26/2017 08:38:01 Benign essential hypertension 2737836 I10 Blood pressure at goal [id number] Boo Christine MD FP, [facility], OFFICE [address] [place] [address] 6 02/16/2018 15:32:13 02/16/2018 16:54:41 Adult health examination 215248654 Z00.00 see Risk Assessment and Lifestyle Change Counseling section above Depression screening 171 502109 Z13.89 depression screening tool administer ed, entered into emr, scored and discussed, time greater than 7.5 minutes Benign ess ential hypertension 7724178 I10 Blood pressure at goal Cough 37626642 R05 Using ProAir occasional ly Screening for malignant neoplasm of colon 531142332 Z12.11 Referral for a DIRECT booked colonoscop y. This patient is a healthy ASA Class 1 or 2 patient (only mild systemic disease), or a STABLE, well controlled insulin dependent diabetic. They do not have serious cardiac disease ie ND/angiopl asty within 1 year, symptomati c CHF; renal failure with CKD 4 or 5; take Coumadin, Plavix, Aggrenox, etc. Sleep apnea 34559835 G47 .30 Please get back to me with name of Cpap provider, will update orders so you can use it again. Impaired f asting glycemia 724959481 R73.01 Blood sugar today 84, continue to monitor [id number] Walter López MD , [facility], OFFICE [address] [place] [address] 6 09/14/2018 17:17:47 09/16/2018 11:01:46 Mixed hyperlipidemia 059898858 E78.2 Benign ess ential hypertension 8618581 I10 Blood pressure at goal Cough 17988645 R05 Using ProAir occasional ly Backache 434291776 M54.9 Wheezing 13435791 R06.2 Normal grief reaction 27 0021314 F43.20 [id number] Boo Christine MD , [facility], OFFICE [address] [place] [address] 6 10/05/2018 15:20:09 10/05/2018 16:27:59 Benign essential hypertension 1757157 I10 Thyroid nodule 600212376 E04.1 Cough 74433506 R05 [id number] Walter López MD , [facility], OFFICE [address] [place] [address] 6 11/02/2018 16:39:52 11/03/2018 09:00:16 Benign essential hypertension 4616561 I10 [id number] Rupinder Eagle DNP, ETL ARCHITECT-BC , [facility], OFFICE [address] [place] [address] 6 11/25/2019 13:48:50 11/28/2019 14:47:15 Urinary tract infectious disease 97203034 N39.0 Patient instructed to push fluids, to follow up for persistent or worsening symptoms or fever or back pain.Treat for presumptiv e infection w/ bactrim.Co nsider musculoske latal vs stone. If no improvemen t will need imaging and cultures. [id number] Yeny Elizabeth NP , [facility], OFFICE [address] [place] [address] 6 11/30/2019 15:08:40 12/02/2019 13:07:04 Low back pain 484557599 M54.5 Nausea 571795255 R11.0 Night sweats 31757678 R6 1 [id number] Rhianna Murray LPN , [facility], OFFICE [address] [place] [address] 6 05/25/2020 16:15:13 05/28/2020 13:23:56 Active or passive immunization 687393100 Z23 [id number] Lynda Stewart PA-C , [facility], OFFICE [address] [place] [address] 6 06/20/2020 09:51:52 06/22/2020 12:18:11 Abdominal pain 25615311 R10.9 New concern, unclear if all symptoms related to same cause, ? cystitis and/or kidney stones given lower abdominal pain with radiation to groin with back pain, POCT urine with trace leuks only, plan to send for culture. Mass palpated in periumbili laney area ? hernia, plan to obtain CT of abdomen and pelvis to further assess all concerns. Screening mammography 24 892134 Z12.31 Routine screening due, patient agreeable, would like to schedule with G, aware of wait time. Active or passive immunization 229578958 Z23 Depression screening 171 096803 Z13.31 - depression screening tool administer ed, entered into emr, scored and discussed, time greater than 7.5 minutes-Co ntinue sertraline [id number] Yeny Elizabeth NP , [facility], OFFICE [address] [place] [address] 6 07/03/2020 15:32:37 07/04/2020 18:49:34 Essential hypertension 28097755 I10 Major depr ession, melancholic type 966066190 F32.9 Multiple n odules of lung 566902432 R91.8 Liver mass 548711239 R16 .0 [id number] Boo Christine MD , [facility], OFFICE [address] [place] [address] 6 08/21/2020 11:04:42 08/21/2020 14:03:59 Essential hypertension 90839399 I10 Vitamin D deficiency 347 09107 E55.9 Thyroid nodule 857335461 E04.1 Multiple n odules of lung 712066898 R91.8 diffuse, bilateral Tremor 13765507 R25.1 L hand 4th & 5th fingers. [id number] , [facility], [address] [place] [address] 10/23/2020 09:00:28 10/24/2020 16:08:20 Essential hypertension 29998947 I10 Mixed hyperlipidemia 267 619347 E78.2 Major depr ession, melancholic type 889369872 F32.9 sertraline 200mg daily. Multiple n odules of lung 102342303 R91.8 diffuse, bilateral Vitamin D deficiency 347 23804 E55.9 [id number] Yeny Elizabeth NP , [facility], [address] [place] [address] 12/06/2020 11:27:07 12/07/2020 09:46:33 Essential hypertension 84062252 I10 Mixed hyperlipidemia 267 949648 E78.2 Chronic ob structive pulmonary disease 40217021 J44.9 Adult heal th examination 549415036 Z00.00 see Risk Assessment and Lifestyle Change Counseling section above Counseling 820878344 Z71 .9 including cardiovasc ular risk reduction counseling Depression screening 171 885918 Z13.31 depression screening tool administer ed, entered into emr, scored and discussed, time greater than 7.5 minutes. Screening reviewed with pt. treated for depression with sertraline . Screening for alcohol abuse 459231070 Z13.39 [id number] Everardo Vazquez MD Endocrino logy, [facility] [address] [place] [address] 12/20/2020 15:28:49 12/21/2020 06:31:01 Thyroid nodule 792720054 E04.1 Right nodule. Cytology from [facility] reports benign . This typically would apply to follicular cells. This is surprising since previous bx from [facility] (2012) was read as showing predominan t Hurthle cells. 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 One would not expect a Hurthle cell tumor to change to a follicular cell lesion. Of note, thyroid CA can metastasiz e to lung. But one would typically expect to see adenopathy . She does not have any significan t adenopathy on exam. Another opportunit y would have been to have cells sent for genetic analysis. If negative, this would have lowered risk of malignancy (ROM) to under 5%. If positive, it would not diagnose cancer but would raise ROM to at least 50-60% and be potentiall y useful to make decisions. However, even a thyroid CA identified in the neck would not clearly link a thyroid primary to the lung mets. Will try to reach out to other providers to help make decision. It may be necessary to repeat biopsy with plan to have cytology read by another source to confirm whether these are follicular vs. Hurthle cells and to obtain sample that can be sent (if needed) for genetic analysis. Multiple n odules of lung 656556120 R91.8 Adds to complexity . Concern about whether we can definitive ly link lung nodules to a known primary. Chronic ob structive pulmonary disease 61649395 J44.9 Clinically . Recent PFTs (08/30) c/w emphysema or interstiti al lung disease. Vitamin D deficiency 347 08846 E55.9 Level of 13 (07/29). Given 50K weekly x 1 month. No f/u orders placed. [id number] Everardo Vazquez MD Endocrino log, [address] [address] 12/27/2020 12:55:55 12/28/2020 06:32:34 [id number] Everardo Vazquez MD Endocrino [address] [address] 01/03/2021 14:30:30 01/08/2021 13:15:42 Thyroid nodule 439077093 E04.1 Right nodule. Cytology: [facility] IV: Suspicious for Follicular Neoplasm. Genomic sequencing vegetable washer pending. Also expression atlas pending. Reviewed ramificati ons of suspicious for follicular neoplasm: BETHESDA CATEGORIES AND ESTIMATED RISK Benign ?......... .......... ........0- 3%........ ... Clinical follow-up Follicular Neoplasm or Suspicious for a Follicular Neoplasm ?......... .......... ...15-30%. ...... Surgical lobectomy Reviewed issues: - Risks/bene fits of surgery (total- she had friend who had total; and ranjith- with less risks for problems) - Concerns about anesthesia - Explanatio n of positive genes NOT being diagnostic but only suggesting increased risk. - Context of other issues. Previous bx ([facility]) read as showing predominan t Hurthle cells. Current bx read as suspicious . Neither of these options are consistent with cytology from [facility] which reported results as benign . While thyroid CA can metastasiz e to lung, one would typically expect to see adenopathy . She has not had significan t apparent adenopathy on exam. Have discussed case with Pulmonary. Genetic sequencing and expression atlas pending. Multiple n odules of lung 644074791 R91.8 Adds to complexity . Concern about whether we can definitive ly link lung nodules to a known primary. Chronic ob structive pulmonary disease 92613821 J44.9 Clinically . Recent PFTs (08/30) c/w emphysema or interstiti al lung disease. Vitamin D deficiency 347 27905 E55.9 Level of 13 (07/29). Given 50K weekly x 1 month. No f/u orders placed. 12/28: suggest get vit D level checked. [id number] Yeny Elizabeth NP FP, [facility], [address] [place] [address] 06/05/2021 10:44:10 06/05/2021 11:39:08 Essential hypertension 68957402 I10 Chronic ob structive pulmonary disease 97163496 J44.9 Cigarette smoker 4536789 7 F17.210 Tobacco user 510341234 Z 72.0 Screening for osteoporosis 615326248 Z13.820 Low back pain 824473945 M54.50 Multiple n odules of lung 624658961 R91.8 diffuse, bilateral Thyroid nodule 216920189 E04.1 Benign ess ential hypertension 0707045 I10 [id number] Lynda Stewart PA-C , [facility], [address] [place] [address] 07/08/2021 11:51:46 07/16/2021 09:19:52 Spasm 99845944 R25.2 describes muscle jerking like spasmrecen t thyroidect yeni, r/o parathyroi d injury - check [place] magnesiumi f all normal, she wants to talk to dr. Vazquez at upcoming appt and ask if he thinks this is related somehow to her thyroid. I advised her to let me know if he states it isn't. 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 Should have TSH/free T4 checked (per d/c summary) and see Dr. Vazquez as scheduled. She will have labs today. [id number] Everardo Vazquez MD Endocrino logy, [facility] [address] [place] [address] 07/18/2021 11:18:55 07/26/2021 06:28:00 Multiple nodules of lung 831927300 R91.8 Adds to complexity . Concern about whether we can definitive ly link lung nodules to a known primary. Chronic ob structive pulmonary disease 96392829 J44.9 Clinically . Recent PFTs (08/30) c/w emphysema or interstiti al lung disease.Di scussed this in relation to smoking and reasons to quit. Vitamin D deficiency 347 56266 E55.9 D= 36.4 (06/30); was 33 (01/28); was 13 (07/29). Had 50K weekly x 1 month.Take s 1-2 daily supplement (07/30). Cigarette smoker 4496913 7 F17.210 Since no clear evidence of metastatic disease, discussed risks/harm s of smoking. Tobacco user 622432000 Z 72.0 Sweating 085966130 R61 Some diarrhea afterwards . Check catechols and also 5hiaa. 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 Not on repalcemen t. check TFTs. [id number] GLENROY MARTI MD , [facility], OFF[address] [place] [address] 10/31/2021 13:22:38 11/11/2021 09:15:16 Pre-surgery evaluation 496550881 Z01.818 Summary: has low rahel-opera tive risk for cardiovasc ular event for planned low-risk procedure (1) Cardiovasc ular Evaluation : Cardiovasc ular risk for perioperat wesley complicati ons: low (no hx ischemic events, CHF exacerbati on, or A Fib) No known arrhythmia Additional CV pre-op testing is not needed (2) Pulmonary Evaluation : Risk for perioperat wesley pulmonary complicati ons: low Might consider non-narcot ic pain management if possible, and short-acti ng narcotics if used (3) Medication Recommenda tions: No medication s need to be stopped or held prior to surgery Not on anticoagul ation or anti-plate let tx Not on steroids: no role for stress dose (4) No Diabetes Mellitus - no specific recommenda tions (5) DVT prophylaxi s as per surgical protocol Backache 195666218 M54.9 rare use of tramadol - refill sent [id number] GLENROY MARTI MD , [facility], OFF[address] [place] [address] 12/23/2021 13:29:28 12/23/2021 14:49:50 Adult health examination 516293583 Z00.00 See risk assessment portion of HPI Counseling 355618706 Z71 .9 including cardiovasc ular risk reduction counseling Cardiovasc ular risk reduction was discussed including benefits and risks of aspirin, exercise goals, healthy eating and healthy weight . Discussion greater than 7.5 minutes. Depression screening 171 348789 Z13.31 depression screening tool administer ed, entered into emr, scored and discussed, time greater than 7.5 minutes Screening for alcohol abuse 136209181 Z13.39 An audit alcohol screening test was performed and scored. Patient was asked about alcohol use, advised about risks of alcohol, and personal risk was assessed, patient agreed to plan and given informatio n about available resources if needed. Discussion including screening and scoring less than 7.5 minutes Mixed hyperlipidemia 267 106530 E78.2 Cholestero l is at goal. LDL 65Continue to work on diet and exercise as discussed Essential hypertension 99864113 I10 Controlled . Continue current regimen. Pain in ri ght hip joint 1525710048 50344 M25.551 xrays r/o DJDES Tylenolhad been told not to take NSAIDs due to hypertensi on. Used to prefer Aleve. If pain is not controlled with Tylenol, will try Aleve (or prescripti on naproxen 500 mg) as needed - let me know. Major depr ession, melancholic type 916121156 F33.1 continue sertraline , follow up with therapist. Has been sensitive to other meds so would prefer to stay on same dose. I need a schedule, I need someplace to go. No thoughts of harming herself. Screening mammography 24 117807 Z12.31 Chronic ob structive pulmonary disease 89135326 J44.9 breathing OK - smoking 1 pk/weekCT showed Upper lobe predominan t centrilobu lar emphysema in 01/25/21 at [facility].uses Breo every other day or every 3 days. Legs get stiff when she uses this daily.No glaucoma Mass of axilla 030468252 R22.2 felt last but none now. ?lymph nodeNothin g palpable todayUS ordered [id number] Everardo Vazquez MD Endocrino logy, [facility] [address] [place] [address] 04/03/2022 09:31:23 04/03/2022 13:42:46 Sweating 946943801 R61 Has c/o diarrhea and intermitte nt sweats. Had normal catechols. 5hiaa was slightly high (issues with urine pH collection ). Not high enough to be suspicious for carcinoid. If sx persist, may need to repeat. Multiple n odules of lung 383975930 R91.8 Adds to complexity . Concern about whether we can definitive ly link lung nodules to a known primary. Chronic ob structive pulmonary disease 25440957 J44.9 Clinically . Recent PFTs (08/30) c/w emphysema or interstiti al lung disease.Di scussed this in relation to smoking and reasons to quit. Vitamin D deficiency 347 80476 E55.9 D= 47.5 (8/22); was 36.4 (06/30); was 33 (01/28); was 13 (07/29). Was taking 1-2 daily supplement but lately more prn. Cigarette smoker 3545258 7 F17.210 Since no clear evidence of metastatic disease, discussed risks/harm s of smoking. 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 Not on replacemen t. Check TFTs. [id number] CATHERINE Garza , [facility], [address] [place] [address] 05/16/2022 14:08:49 05/16/2022 14:58:54 Tobacco user 043608400 Z72.0 not discussed today, will discuss at f/usmoking occasional ly per chart review Active or passive immunization 401032397 Z23 pt already had flu vaccinerem inded about shingles vaccine Pain in right hand 58680 92245 12787 M79.641 s/p fall 2 weeks agorepeat hand/wrist xrays given recurrent edema and painok to continue compressio n brace, rest, ice in the interim Pleuritic pain 9945325 R 07.81 new as of last nightreass uring examencour aged to continue monitoring and call with any changes/wo rsening Pain in ri ght hip joint [id number] 70633 M25.551 May xray reviewed - moderate degenerati ve changesPT and ortho referrals sentcall as needed Bone density finding 385 455312 M85.80 results 03/2022 reviewed - low bone massFRAX score reviewed: 10 y risk major risk 11%, hip 3.3%discus sed tx options, for now will optimize vitamin D, calcium, and weight-godwin ring and muscle-str engthening repeat scan 2 years Urgent rosalino alan to urinate 44743335 R39.15 POC UA showing trace leuksnot enough urine for culture at appt, will have pt return for this Chronic ob structive pulmonary disease 50236074 J44.9 looking into new pulmonolog ist, has recs from Dr. [id number] refill sent of Trelegy so she has it on hand in the interim Backache 514237634 M54.9 takes tramadol sparingly as needed for chronic back painlast fill 01/2022 per doug gastelum reassess at f/u [id number] CATHERINE Garza , [facility], [address] [place] [address] 01/01/2023 13:14:36 01/01/2023 14:31:56 Adult health examination 282195494 Z00.00 Depression screening 171 807043 Z13.31 depression screening tool administer ed. as below. Screening for alcohol abuse 503754871 Z13.39 Alcohol use screening tool administer ed. rec max 7 drinks/wee k. Essential hypertension 76714530 I10 consistent ly above goalincrea se nifedipine to 90mg daily (currently taking 60mg daily)f/u 1 month to reassess Mixed hyperlipidemia 267 215055 E78.2 Cholestero l is at goalContin ue to work on diet and exercise as discussed Screening mammography 24 842497 Z12.31 due Active or passive immunization 620543418 Z23 reminded about shingles vaccinetet anus vaccine will do Increased frequency of urination 686713175 R35.0 POC UA negative, unable to send for culture due to limited supplycall with any new/worsen ing symptoms Chronic ob structive pulmonary disease 46016965 J44.9 needs referral to new pulmonolog ist, she will get the name and let us know where she'd like to godoing well otherwise with current inhaler regimen Impaired f asting glycemia 735046061 R73.01 improving, recent A1C 5.2 Bone density finding 385 628308 M85.80 results 03/2022 reviewed - low bone massFRAX score reviewed: 10 y major risk 11%, hip 3.3%prefer s to continue to optimize vitamin D, calcium, and weight-godwin ring and muscle-str engthening repeat scan 2 years Major depr ession, melancholic type 186798397 F33.1 reports acute on chronic depression does virtual therapy which helpsalso continues on sertraline Tobacco user 638144132 Z 72.0 We discussed your smoking today for more than 3 minutes. Cigarette use is the leading cause of preventabl e disease, disability , and in the [place]. We talked about tools and medication s available to help you in smoking cessation. We discussed utilizing our smoking cessation girls tennis coach and online resources. Your personal goal: to quit! Multiple n odules of lung 861716699 R91.8 per problem list/forme r PCP CE - non-cancer ous. followed by Dr. Leavitt . 09/04/21 note - surveillan ce is complete. pt interested in low dose CT screening to use as f/u as well, as above. Candidiasis of mouth 797 63171 B37.0 will treat with darian per patient preference continue good oral hygiene after inhaler usecall if not resolving History of subtotal thyroidectomy 111772342 Z90.09 original concern for metastatic CA as multiple lung nodules, PET lit up mass in thyroid, now s/p subtotal thyroidect yeni, not on medication , following with Dr. Vazquez regularly History of partial resection of colon 864724982 Z90.49 pre cancerous polyp removal 2008, gets colonoscop ies q5 years [id number] Jaimee Lowe RN BSN , [facility], [address] [place] [address] 05/18/2023 11:17:42 05/19/2023 14:44:12 [id number] BRIAN SHIELDS MD , [facility], [address] [place] [address] 02/05/2024 13:40:32 02/05/2024 17:40:33 Cough 84499742 R05.9 Essential hypertension 16858659 I10 Has been elevated in the past so will monitor closely. Reduce nifedipine to 60 mg daily. Continue losartan and labetolol. Mixed hyperlipidemia 267 946120 E78.2 She would like to try discontinu ing the statin. Agreed this is fine but we should recheck her cholestero l in a month. Lightheadedness 10267832 8 R42 Mostly with standing. I think this could be due to the fact she's on multiple BP meds. I think the risk of falling (since she has already fallen) might outweigh the benefit of perfect control. I advised she reduce the nifedipine back to 60 mg daily for now. She has a cuff at home to monitor. Based on how she does she could potentiall y reduce it further or reduce the beta fidel. Unintentio nal weight loss 412696052 R63.4 Thinks this was due to breaking her teeth, sore teeth. Advised her to continue to use her protein shakes. Will check some labs as above. Will need to monitor. Chronic ob structive pulmonary disease 24652026 J44.9 Continue inhalers and follow up with pulm. Refilled albuterol - see below. Abnormal gait 96095380 R 26.9 She does have a stiff and tentative gait. Unclear whether this is due to deconditio luisito, her concerns about falling or something neurologic al. Will re-evaluat e at next visit. 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 Not on replacemen t.Update TFTs since having sx. Chronic ob structive pulmonary disease 86861382 J44.9 Clinically . Recent PFTs (08/30) c/w emphysema or interstiti al lung disease.Di scussed this in relation to smoking and reasons to quit. Cigarette smoker 9328157 7 F17.210 Since no clear evidence of metastatic disease, discussed risks/harm s of smoking. Tobacco user 080698970 Z 72.0 counseling . Thyroid fu nction tests abnormal 366864892 R94.6 Not controlled . TSH= 2.3 (03/02) was 1.32 (01/31) ft4= 0.71 (03/02); was 0.7 (07/02) She is having multiple sx that might be c/w insufficie nt thyroid. Low T4 in setting of normal TSH is not c/w primary abnormalit y. Suggests possibilit y of secondary (pituitary ) issue.[facility] k labs. Dizziness 060467349 R42 Not controlled Orthostati cs show now rise in HR with standing (drops systolic > 20 but not hypotensiv e).On labetalol- 150 bid (was 300 bid). decreased a year ago (?06/01?)c heck cortisol/a cth. If OK, may want to review use of labetalol vs. change to alternativ e. Osteopenia with high fracture risk 0416247506 81874 M85.80 BMD @ VMGL1-L4= -0.1 (05/01) .Femoral Neck= -1.9 (05/01)Left Total Hip= -1.5 (05/01)Risk s: thin, white, post-menop ausal and smoker. Has had wrist fx. Update with new baseline. [id number] Everardo Vazquez MD Endocrino logy, [facility] [address] [place] [address] 06/23/2024 13:35:00 06/27/2024 06:21:22 Thyroid function tests abnormal 614806461 R94.6 Not controlled . TSH=4.12 (06/02) was 2.3 (03/02) was 1.32 (01/31) ft4= 0.8 (06/02) was 0.71 (03/02); was 0.7 (07/02) Low T4 in setting of normal TSH is not c/w primary abnormalit y. Checked labs- no pituitary abnormalit ies.TSH is rising- Given hx of ranjith-thyro idectomy, will follow labs. Doesn't seem that her thyroids are directly related to thyroid. 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 Not on replacemen t.Update TFTs since TSH is slowly rising (although still WNL). Dizziness 935802191 R42 Not controlled Orthostati cs showed rise in HR with standing (drops systolic > 20 but not hypotensiv e).On labetalol- 150 bid (was 300 bid). decreased a year ago (?06/01?) Checked cortisol/a cth and those were OKMay want to review use of labetalol vs. change to alternativ e. Osteopenia with high fracture risk 0869168513 93148 M85.80 BMD @ VMGL1-L4= -0.1 (05/01) .Femoral Neck= -1.9 (05/01)Left Total Hip= -1.5 (05/01)Risk s: thin, white, post-menop ausal and smoker. Has had wrist fx. Recommend: - Update with new baseline in future.- Talk to PCP about physical therapy focus on exercises that don't make dizziness worse. Chronic ob structive pulmonary disease 49480465 J44.9 Clinically . Recent PFTs (08/30) c/w emphysema or interstiti al lung disease.Di scussed this in relation to smoking and reasons to quit. Cigarette smoker 2508620 7 F17.210 Since no clear evidence of metastatic disease, discussed risks/harm s of smoking. Tobacco user 559363591 Z 72.0 counseling . Health Concerns Section Related Observation LastModified by Organization Detai ls LastModified Time None Recorded Concern Status LastModified by Organization Details LastModified Time None Recorded Advance Directives Directive None Recorded Payers Encounter Date Sequence Insurance Name Policy Number Policy Coppola Covered Member ID Coppola Member ID Guarantor Name 01/01/2023 2 [facility] (MEDICARE SUPPLEMENT) Linda Gonzalezan [id number] Linda Diehl 01/01/2023 1 [facility] (MEDICARE REPLACEMENT/A DVANTAGE - PPO) [id number] Linda A Dinan [id number] Linda Dinan 05/18/2023 2 [employer] (MEDICARE SUPPLEMENT) Linda Dinan [id number] Linda Dinan 05/18/2023 1 [facility] (MEDICARE REPLACEMENT/A DVANTAGE - PPO) [id number] Linda A Dinan [id number] Linda Dinan 02/05/2024 1 [employer] (MEDICARE REPLACEMENT/A DVANTAGE - PPO) [id number] Linda A Dinan [id number] Linda Dinan 05/05/2024 1 [employer] (MEDICARE REPLACEMENT/A DVANTAGE - HMO) [id number] Linda A Dinan [id number] Linda Dinan 06/23/2024 1 [employer] (MEDICARE REPLACEMENT/A DVANTAGE - PPO) [id number] Linda A Dinan [id number] Linda Diehl Notes Date Note Type Note Provider Name and Address Organization Details Recorded Time 3 text/html Physical Exam/FemaleReported bypatient.PHAPatient is here for a Wellness Visit. She describes her health status as good. Patient's health is the same as last year.; isolation has been hardNotes:Taking sertraline 200mg helping mood.Risk Assessment and Lifestyle Change Counseling 65+ (Medicare)Reported bypatient.Coronary Artery Disease Risk Assessment:No Family history of coronary artery disease; No personal history of diabetes; No history of peripheral vascular disease, AAA, or carotid disease; No personal history of coronary artery disease Breast Cancer Risk Assessment:No family history of breast cancer; No history of breast cancer or dcis Colon Cancer Risk Assessment:personal hx of polyps Lung Cancer Risk Assessment:Current smoker;Has used cigarettes more than 30 pack-years; No asbestos exposure Fracture Risk Assessment:No unexplained fracture; balance is normal; No use of corticosteroids; No anti-seizure medication; Normal bone density; Has adequate calcium intake; Taking Vitamin D supplement; No chronic use of proton pump inhibitors Cognitive/Behavioral Risk Assessment:Personal history of mental illness(depression); No family history of mental illness; Do you or anyone else have concerns about your memory? no Safety Risk Assessment:Has grab bars in bathroom; Has rails on steps; No falls; No evidence of abuse/neglect; Do you feel safe in your current relationship?YES Functional Status:Patient does not have trouble hearing the television or radio when others do not.; Patient does not have to strain or struggle to hear/understand conversations; Patient does not need help with preparing meals, transportation, shopping, taking medicine, managing finances, or other activities of daily living.; Patient does not have visual loss that interferes with daily activities; Does not live alone; Patient reports no falls in the past 6 months. Diet:Counseled about eating a diet low in trans and saturated fats and high in fiber, fruits and vegetables; Counseled about appropriate calcium intake and good dietary sources of calcium.; Discussed the value of a Mediterranean diet , and eating more fruits and vegetables Exercise counseling:Discussed the importance of daily physical activity; Discussed the importance of weight bearing exercise Safety:Counseled about protecting skin from the sun and lowering the risk of skin cancer; Counseled about avoiding excessive and unsafe alcohol intake; Counseled about home safety including use of smoke detectors, CO detectors, keeping home water temperature less than 120; Counseled about use of seat belts; Counseled about fall risk from throw rugs and the need for hand rails on steps and in bathRisk Assessment and Lifestyle Change Counseling-female 60-64Reported bypatient.Coronary Artery Disease Risk Assesment:Family History of Coronary Artery Disease(father ND age 62);Does not participate in regular exercise program;Personal history of hypertension; No personal history of diabetes;Uses tobacco(very occasionally); No personal history of coronary artery disease Breast Cancer Risk Assessment:No family history of breast cancer; No history of breast cancer or dcis Colon Cancer Risk Assessment:No family history of colon polyps or cancer; No history of adenomatous colon polyps Cervical Cancer Risk Assessment:No abnormal pap smears Lung Cancer Risk Assessment:Has used cigarettes; Patient has higher than average risk for lung cancer Fracture Risk Assessment:No unexplained fracture; No falls Exercise counseling:Discussed the importance of daily physical activity; Discussed the importance of weight bearing exercise Advanced DirectivesDiscussed the importance of a health care proxy and advanced directivesUrinary FrequencyReported bypatient.SymptomsUrinary frequency;UrgencyVMG COPDReported bypatient.Duration:diagno sed within last year; Dx'd by PFT's 11/19/2020 Dr Coombs Control:treated with maintenance inhaled steroids; treated with long acting beta agonist; treated with short acting beta agonsit Compliance:compliant with medications Progression:same Prior History:smoking statusdesires to stop smoking; had stopped for 5-6 yrs but resumed when she was told she had cancer Associated Symptoms:no fever; no fatigue; no irritability; no cough; white or clear sputum; normal appetite; no changes in productivityVMG HypertensionReported bypatient.Context:No ischemic heart disease; No kidney disease; No history of CVA; No congestive heart failure; No history of transient ischemic attacks; No peripheral vascular disease; No history of diabetes Control:BP Goal less than (130/80); Treated with medications; Patient understands medications are to lower blood pressure; Has been difficult to control. 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 Compliance:Compliant with medications; Compliant with diet; Compliant with exercise; Compliant with follow-up visits Barriers to CareNo identified barriers to care Aggravating factors:counseled to increase activity; counseled to stop smoking Associated Symptoms:No chest pain; No shortness of breath; No edema; No fatigue; No palpitations; No snoring;Decline in exercise capacity; Has c-pap, but doesn't often use. 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) Back pain - ES tylenol only once a day right hip lot of pain - fermin with weight bearing/walking lipids controlled CATHERINE Garza [address] [place] [address], [phone], [facility] 01/02/2023 08:02:49 4 text/html Hasn't felt well for quite a while Wants to have her medications re-evaluatedPCP altered some of her medications last fall - increased nifedipine to 90 mg dialyIn the last several months, gait has changed dramatically Going from sit to stand feels stiff, lightheaded, balance offUsing a wider stance when walkingHas had some falls - fell and hurt her fingerStates at one point blood pressure was very high, but she has lost weight since thenLost weight because of an issue with her teeth, has had a sore mouth, unable to eat muchTakes Nifedipine 30 mg XR x 3 pills each morning, Losartan 100 mg daily, Labetolol 150 mg BID Also had some pain in her ribcage, pain with deep breath, shallow breathing - this caused some SOB. This was within the last month.Drove herself to the hospital ([place]) and was admitted several days (need to request records) Also states she was diagnosed with metastatic cancer at one point in the last few years but then the oncologist left, someone else reviewed the records, stated there was no concerns and it wasn't actually cancer. Has COPD - sees pulm, uses a daily inhaler and albuterol prn BRIAN SHIELDS MD [address] [place] [address], [phone], [facility] 02/05/2024 16:07:07 4 text/html ThyroidReported bypatient.Previous Evaluation:TSH: (2.3 (03/02) was 1.32 (01/31) was 2.01 (03/31); was 2.56 (12/29); 1.93 (06/30);); free T4: (0.71 (03/02); was 0.7 (07/02) was 0.75 (06/30);); Right lobectomy 05/13/2021. 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 Constitutional:no cold intolerance (hands/feet. Heat on all day yesterday (shivering)); no heat intolerance (daily sweats (4:30AM)); WEIGHT (home): 103 (05/03); steady for a while. Ongoing dental issues- lower appetite. consistent: ensure protein shakes daily. oatmeal, soups, stews. things that need less chewing. Neck:no difficulty swallowing; no masses;voice changes(raspy- feels varying lately and can change suddenly.); At visit- feels throat is scratchy but no change if clears throat. Heart:no palpitations; no fluttering; no chest pain; no tightness or pressure;rapid heart rate(Periodic cardiac awareness . beats fast (up to 30 minutes rarely). sitting down and breathing helps. Checks BP (Wrist): can be up to 140s but can be much lower too.) GI:no constipation (told when admitted for abdominal pain (but goes daily)); no diarrhea (loose bowels on softener.); Had 5HIAA- 08/31- hr=7.2 (ref < 6)but pH abnormal. Neurological:no tremor (in hands.); no anxiety (some increase recently.); not jittery/nervous;insomnia( ongoing. Not just from 4:30AM sweats. Staying asleep is hard.); Big issue with balance. gets nervous with activities.Notes: THYROID HX: Pt. had seen Kalia. Originally found to have right nodule that was biopsied- reported to have Hurthle cells. While qualitatively, there was less concern for Hurthle cell carcinoma, pt. was advised that conservative approach would be to have ranjith-thyroidectomy. She declined and decision was made to monitor. Kalia last saw her 2015. She did not have any f/u u/s or evaluation until current issues came up.a/vmg-smoking [id number] bypatient.ImportanceOn a scale of 1-10 with 1 being not important and 10 being very important the patient rates importance of stopping smoking / vaping as 2; was 7 was 5; ConfidenceOn a scale of 1-10 with 1 being not confident and 10 being very confident the patient rates confidence on stopping smoking / vaping as 5; was 6 was 10 Readiness to quit smoking/vapingOn a scale of 1-10 with 1 being not ready and 10 being very ready the patient rates readiness to stop smoking /vaping as 5; was 5; was 5. Physiological Dependence/Health RiskCurrently smoking (0-4 cigs/day.); Patient has first cigarette / vaping session greater than 30 minutes after awakening (uses as reward - coffee or cocktail.); 03/31: up/down. 1-5+ cigarettes. 05/03: 0-4 cigs. Quit in 2003 and had quit before that (after college and after divorce. Also after loved on . Medication AssessmentHas used Patch in the pastNotes:05/03: smoking as reward . going away this weekend and will use patches- smokeless friends. Smoking up/down. worries that if stops, what would occupy her time? Ongoing smoking- used to smoke at different times in past- HS but then stopped. College, but then stopped. After divorce, then stopped etc. PCP: Sacha: No one. Lung findings not cancer. Was Zully- had phone visit. CEA was better (but still high). F/U prn.PULM: Parveen ([facility]) Follow-Up: thyroid noduleVMG Tobacco / Vaping Use epLV on 03/31LAst labs on 03/02Last Thyroid US on 1PT had a Rajnith-thyroidectomy in Ast bone density 2021 [facility] ordered by PCPLabs cuedSmoking only occasionallyPT has had balance problems has had a number of falls. PTS hair is falling out , PT states muscles ache and joint stiffness and hands and feet tingle 03/31: wants to avoid more meds.05/03: checking in since 03/31. PAST MEDICAL Hx (updated):HTNChronic back pain; Accident years agoHx bowel resection for pre-cancerous lesionBeing evaluated for multiple lung lesions- seeing Eric.Hx kidney stone years ago- removed surgically.07/30: thyroid surgery.05/03: Lung issues not felt to be CA. 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 HS and then off and then college.07/30: Stressed with events of past year. Speaks about getting advice pushing her to do things only one way. Exercise- limited by leg sx (see HPI).Smoking: picked that back up. 1-6 cigs/day. Not in house.05/03: Not working. Harder with no schedule.Activity limited- balance off. several falls. fx of finger. Also left arm (2021) FAMILY Hx (updated):mother- 29 of brain tumorfather- 62 heart attackBrother- skin CA.Sister (55)- CVA after kidney/liver issues.No kids.07/30: Brother: doing OK s/p prostate CA.4 other sisters: one older. 3 younger. 05/03: No major changes. 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 2023: Sx of most concern.- cold- dry skin; sheds when takes clothing off- hair falling out- joint stiffness and muscle aches. Up last night and pain like guevara splints bilaterally.- hands/feet tingle. not the cause of balance.- Falls: 8-9x over the last 6 months. On vacation with brother- fell backwards suddenly. No LOC. Feels dizzy when first gets up in AM.Strength: less but blames it on hands.Trouble carrying bags/bundles. Gets tired in middle of day- naps.No change in skin pigmentation. HEADACHES: NoneVISION: No sx of visual field defects. Past few days- more trouble driving at night.No breast discharge. Ongoing legs sx. sometimes feel weak. sometimes cramp. Depression ongoing. In past (): Told of metastatic cancer and started smoking again. Some alcohol too.But extensive work-up never showed any clear malignancy. Past sx related to NIGHT SWEATS:Ongoing night sweats- severe. puts padding on bed - had been changing linens and/or on beach towels. then mat of beach towels.Details see 07/30 visit. MUSCLE SX:Ongoing fasciculations mostly in legs. Occ in fingers.Balance off tooSee 07/30 note for details on sx BONE HEALTH:BMD @ VMGL1-L4= -0.1 (05/01) .Femoral Neck= -1.9 (05/01)Left Total Hip= -1.5 (05/01)Risks: thin, white, post-menopausal and smoker. Hx kidney stone- many years ago (pre 1999)Occ calcium supplements. Occ vitamin D.Takes ensure 1-2 per day. Vit D= 39 (03/02) was 48.2 (12/30) was 47.5 (03/31) ROS: see HPI.No SOB. Using inhalers prn. See prior visits for events that led to surgery.Brief: lung nodules -> PET scan which had uptake in throid. Thyroid bx suspicious. Had lobectomy (07/30) Bx done through [facility] Radiology: 2.2x1.7x2.9 (5 passes)- reported as benign biopsy. 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 Looking back, feels she was being pushed to do what ONC wanted.Still somewhat concerned that she doesn't have real sense of etiology of issues (lung nodules, etc.) OTHER IMAGING:- ADRENAL: Stable 1.3 cm right and 1.0 cm left adrenal nodules.- LUNG: Multiple bilateral pulmonary nodules described above, many of them no longer seen or markedly decreased in size compared to July 2020. Everardo Vazquez MD [address] [place] [address], [place], [phone], [facility] 05/05/2024 12:57:58 4 text/html ThyroidReported bypatient.Previous Evaluation:Previous biopsy cytology (Celina IV: Suspicious for follicular neoplasm. Genomic sequencing (+) but no specific gene by expression atlas identified. (12/28)); TSH: (4.12 (06/02) was 2.3 (03/02) was 1.32 (01/31) was 2.01 (03/31); was 2.56 (12/29); 1.93 (06/30);); free T4: (0.8 (06/02) was 0.71 (03/02); was 0.7 (07/02) was 0.75 (06/30);); Right lobectomy 05/13/2021. 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 Constitutional:no cold intolerance (hands/feet mostly. can be chilled all over.); no heat intolerance (hot flashes couple of times per day.); weight ((home): 108 (07/03); was 103 (05/03); steady for a while.); Ongoing dental issues- lower appetite. Consistent: ensure protein shakes daily. oatmeal, soups, stews. things that need less chewing. 07/03: lost 60# with metastatic CA but then told didn't have it. Neck:no difficulty swallowing; no masses;voice changes(more shallow/raspy lately (07/03). some reverberation ); Some discomfort/tenderness- upper left neck. Heart:no palpitations; no fluttering; no chest pain; no tightness or pressure;rapid heart rate(Periodic cardiac awareness . Beats fast (up to 30 minutes rarely). Checked and pulse unchanged. No change in BP); . GI:no constipation; no diarrhea; Had 5HIAA- hr=7.2 (ref < 6)but pH abnormal. Neurological:no tremor; no anxiety (some increase recently.); not jittery/nervous;anxiety;i nsomnia(Ongoing. Not just from 4:30AM sweats. Staying asleep is hard.); Big issue with balance.Notes:Dx depression since 70s. Thinks it's more severe. 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 * THYROID HX: Pt. had seen Kalia. Originally found to have right nodule that was biopsied- reported to have Hurthle cells. While qualitatively, there was less concern for Hurthle cell carcinoma, pt. was advised that conservative approach would be to have ranjith-thyroidectomy. She declined and decision was made to monitor. Kalia last saw her 2015. She did not have any f/u u/s or evaluation until current issues came up.a/vmg-smoking [id number] bypatient.ImportanceOn a scale of 1-10 with 1 being not important and 10 being very important the patient rates importance of stopping smoking / vaping as 2; was 2; was 7 was 5; ConfidenceOn a scale of 1-10 with 1 being not confident and 10 being very confident the patient rates confidence on stopping smoking / vaping as 5; was 5 was 6 was 10 07/03: impacted by depression Readiness to quit smoking/vapingOn a scale of 1-10 with 1 being not ready and 10 being very ready the patient rates readiness to stop smoking /vaping as 8; was 5; was 5; was 5. Physiological Dependence/Health RiskCurrently smoking (1-10 cigs/day.); Patient has first cigarette / vaping session greater than 30 minutes after awakening; 07/03: was 0-4 03/31: up/down. 1-5+ cigarettes. 05/03: 0-4 cigs. Quit in 2003 and had quit before that (after college and after divorce. Also after loved on . Medication AssessmentHas used Patch in the pastNotes:07/03: Discussed issues with depression. Also with habits of smoking. 05/03: smoking as reward . going away this weekend and will use patches- smokeless friends. Smoking up/down. worries that if stops, what would occupy her time? Ongoing smoking- used to smoke at different times in past- HS but then stopped. College, but then stopped. After divorce, then stopped etc. PCP: Sacha: No one. Lung findings not cancer. Was Zully- had phone visit. CEA was better (but still high). F/U prn.PULM: Parveen ([place]) Follow-Up: thyroid noduleVMG Tobacco / Vaping Use epLV on 05/03LAst labs on 06/02Last Thyroid US on 1PT had a Ranjith-thyroidectomy in Ast bone density 2021 at [facility] ordered by PCPNO Labs cuedSmoking only occasionallyPT having trouble sleeping having trouble with balance and temperature regulation of body 03/31: wants to avoid more meds.05/03: checking in since 03/31. PAST MEDICAL Hx (updated):HTNChronic back pain; Accident years agoHx bowel resection for pre-cancerous lesionBeing evaluated for multiple lung lesions- seeing Eric.Hx kidney stone years ago- removed surgically.07/30: thyroid surgery. Hemithyroidectomy (see below)05/03: Lung issues not felt to be CA. Emphasis now on COPD (Parveen).Admission for pain- told of constipation (but moves bowels daily).Also, atorvastatin stopped.07/03: reviewed LDL increasing off statin.Fell and injured left upper forehead (table but also earlobe (chair). Lost balance and tried to sit down- still lost balance. 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 HS and then off and then college.07/30: Stressed with events of past year. Speaks about getting advice pushing her to do things only one way. Exercise- limited by leg sx (see HPI).Smoking: picked that back up. 1-6 cigs/day. Not in house.05/03: Not working. Harder with no schedule.Activity limited- balance off. several falls. fx of finger. Also left arm (2021)07/03: Limited d/t balance problems. FAMILY Hx (updated):mother- 29 of brain tumorfather- 62 heart attackBrother- skin CA.Sister (55)- CVA after kidney/liver issues.No kids.07/30: Brother: doing OK s/p prostate CA.4 other sisters: one older. 3 younger. 07/03: No major changes. 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 2023: Sx of most concern.ongoing (07/03):JOINTS: pain and stiffness- all over. opening containers.MUSCLE STIFFNESS and WEAKNESS: Mostly arms and legs. can't stand on one leg.Trouble going from sitting to standing.BALANCE: falls.SLEEP: always fatigued but can't fall asleep. tired when wakes up.Recognizes some of above may be related to depression. Has trouble distinguishing strength vs. joint issues vs. muscle issues.In past:- cold with dry skin- TSH OK (see thyroid section)- Frequent falls: 8-9x over the last 6 months. On vacation with brother- fell backwards suddenly. No LOC. Feels dizzy when first gets up in AM.No change in skin pigmentation.acth= 18 (06/02) MEGAN= 31.4 (06/02) HEADACHES: NoneVISION: No sx of visual field defects. Past few days- more trouble driving at night.No breast discharge.PRL= 9.4 (06/02) Depression ongoing. In past (): Told of metastatic cancer and started smoking again. Some alcohol too.But extensive work-up never showed any clear malignancy. Past sx related to NIGHT SWEATS:Details see 07/30 visit. MUSCLE SX:Ongoing fasciculations mostly in legs. Occ in fingers.Balance off tooSee 07/30 note for details on sx BONE HEALTH:BMD @ VMGL1-L4= -0.1 (05/01) .Femoral Neck= -1.9 (05/01)Left Total Hip= -1.5 (05/01)Risks: thin, white, post-menopausal and smoker. Hx kidney stone- many years ago (pre 1999)Occ calcium supplements. Occ vitamin D.Takes ensure 1-2 per day. Vit D= 39 (03/02) was 48.2 (12/30) was 47.5 (03/31) ROS:No SOB. Using inhalers prn. See prior visits for events that led to surgery.Brief: lung nodules -> PET scan which had uptake in throid. Thyroid bx suspicious. Had lobectomy (07/30) Bx done through [facility] Radiology: 2.2x1.7x2.9 (5 passes)- reported as benign biopsy. 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 Looking back, feels she was being pushed to do what ONC wanted.Still somewhat concerned that she doesn't have real sense of etiology of issues (lung nodules, etc.) OTHER IMAGING:- ADRENAL: Stable 1.3 cm right and 1.0 cm left adrenal nodules.- LUNG: Multiple bilateral pulmonary nodules described above, many of them no longer seen or markedly decreased in size compared to July 2020. Everardo Vazquez MD [address] [place] [address], [phone], [facility] 06/26/2024 18:32:05 OBGyn Episode No OBEpisode recorded.
== END 2024-09-20 12:56 | disposition home or self-care (01) ==
PROVIDERS: PCP Nurse Practitioner Family; Visit Provider Nurse Practitioner Family
DX: J41.0 Simple chronic bronchitis (principal); F33.1 Major depressive disorder, recurrent, moderate; G47.33 Obstructive sleep apnea (adult) (pediatric); I25.10 Atherosclerotic heart disease of native coronary artery without angina pectoris; Z76.89 Persons encountering health services in other specified circumstances; Z72.0 Tobacco use; M85.80 Other specified disorders of bone density and structure, unspecified site; Z85.850 Personal history of malignant neoplasm of thyroid; E89.0 Postprocedural hypothyroidism; R29.6 Repeated falls; R29.898 Other symptoms and signs involving the musculoskeletal system; I10 Essential (primary) hypertension

== ENCOUNTER 2024-09-20 12:46 | Outpatient (REF) | payer OTHER, SELFPAY ==
[2024-09-20 14:18] LABS: Hematocrit 40.7 % (37.0-47.0); Hemoglobin 13.8 g/dl (12.0-16.0); Mean Corpuscular HGB Conc 33.9 g/dl (31.0-35.0); Mean Corpuscular Hemoglobin 32.3 pg (27.0-33.0); Mean Corpuscular Volume 95.3 fL (80.0-98.0); Mean Platelet Volume 10.7 fL (9.4-12.3); Platelet Count 215 X10*3/uL (160-400); Red Blood Count 4.27 X10*6/uL (4.20-5.50); Red Cell Distribution Width 13.7 % (11.0-16.0)
[2024-09-20 14:49] LABS: Creatinine Urine 94.01 mg/dL; Microalbum/Creatinine Ratio Ur 5.3 ug/mg cr (<30)
[2024-09-20 15:38] LABS: Alanine Aminotransferase 18 U/L (0-31); Albumin Level 4.3 g/dL (3.5-5.0); Anion Gap 12 (12-20); Aspartate Amino Transferase 27 U/L (5-31); Bilirubin Total 0.3 mg/dL (0.0-1.0); Blood Urea Nitrogen 12 mg/dL (9-16); Calcium 9.1 mg/dL (8.4-10.2); Carbon Dioxide 28 mmol/L (22-29); Chloride 106 mmol/L (96-108); Cholesterol 183 mg/dL (<200); Estimated Glomerular Filt Rate > 60; Glucose Random 83 mg/dL (60-115); HDL Cholesterol 63 mg/dL (>40); Iron 76 mcg/dL (30-160); LDL Cholesterol Calculated 94 mg/dL (<100); Percent Iron Saturation 22 % (15-50); Potassium 4.2 mmol/L (3.3-5.1); Sodium 142 mmol/L (135-145); TSH reflex Free T4 1.43 uIU/mL (0.32-4.0); Total Iron Binding Capacity 346 mcg/dL (228-428); Total Protein 7.3 g/dL (6.5-8.0); Triglycerides 133 mg/dL (<150); Unsaturated Iron Binding 270 ug/dL; Vitamin D 25-OH Total 41.6 ng/mL (>30)
[2024-09-20 15:53] LABS: Vitamin B12 188 pg/mL (200-900)
[2024-09-20 17:29] LABS: Alkaline Phosphatase 69 U/L (39-117)
== END 2024-09-20 12:47 | disposition home or self-care (01) ==
LOC: HO.WFDLDS 12:46
PROVIDERS: Visit Provider Nurse Practitioner Family
DX: Z76.89 Persons encountering health services in other specified circumstances (principal); J41.0 Simple chronic bronchitis; G47.33 Obstructive sleep apnea (adult) (pediatric); I25.10 Atherosclerotic heart disease of native coronary artery without angina pectoris; M85.80 Other specified disorders of bone density and structure, unspecified site; E89.0 Postprocedural hypothyroidism; R29.6 Repeated falls; R29.898 Other symptoms and signs involving the musculoskeletal system; F33.1 Major depressive disorder, recurrent, moderate; I10 Essential (primary) hypertension; N28.1 Cyst of kidney, acquired; M47.816 Spondylosis without myelopathy or radiculopathy, lumbar region; R91.8 Other nonspecific abnormal finding of lung field; R42 Dizziness and giddiness; Z72.0 Tobacco use; Z85.850 Personal history of malignant neoplasm of thyroid; Z87.442 Personal history of urinary calculi
CPT/HCPCS: 36415; 80053; 80061; 82043; 82306; 82570; 82607; 82746; 83540; 84443; 85027; 93005; 96127

== ENCOUNTER 2024-10-05 11:11 | Outpatient (AMB) | payer MEDICARE, SELFPAY ==
--- NOTE | 2024-10-05 11:32 | A.OFFPC_ITS ---
Vital Signs 10/05/24 11:35 Height 5 ft 3 in Weight 110 lb 2 oz BMI 19.5 BP 144/73 H Blood Pressure Location Rt brachial Position Sitting Respiration 14 Pulse 51 Pulse Source Pulse Oximeter Temp 97.9 F Temp Source Oral Pulse Oximetry (%) 94 Oxygen Delivery Method Room Air Intake Visit Reasons: appt 1-2 wks 30 min lab review/cont to est care Intake Note: lab review Allergies Penicillins [PENICILLINS] Allergy (Unknown, Verified 10/05/24 11:54) ITCHING Medication List - Last Reconciled 10/05/24 by Rosa M Mason, LOWERATOR OPERATOR- famotidine 20 mg PO BID fluticasone propion-salmeterol 113-14 mcg/actuation (AirDuo RespiClick) 1 inh inhalation Q12H 30 days labetalol 100 mg PO BID mecobalamin (vitamin B12) (B12 Active) 2,000 mcg (2 x 1,000 mcg) PO DAILY nifedipine ER mg PO sertraline 200 mg PO .at night tramadol 50 mg PO DAILY PRN Tobacco use date assessed: 09/20/24 Dental Screening Dental Screen Date: 09/20/24 HPI HPI Comments History of Present Illness Details 69 y/o f with benign lipid adenoma bilat , R renal cyst, uterine fibroid, severe atherosclerotic calcification of the aorta and moderate to severe calcifications of the iliofemoral vessels (CT abd pelvis 01/2024), spinal DJD, bilat lung nodule, current smoker, COPD, thyroid ca, ANA, HTN, hx of renal stones, MDD , osteopenia, s/p L arm fracture, b 12 def s/p hemithyroidectomy 2020, bowel resection, S/p bilat CTS, Fmhx: Mom brain ca 29, dad mi 62, brother skin ca, sister CVA, Sz 55, family hx of etoh abuse, sister of etoh abuse sp liver transplants Health Maintenance Dexa 2021 repeat ordered Tdap UTD Flu UTD Mammo ordered today [facility] Specialist lung ca screening - referred to [facility] today Rae Kenny @ [facility], last visit 07/2024 - The patient is a 69-year-old female pr esenting for interim follow-up. Labetalol adjusted due to bradycardia. Now only feeling dizzy when she stands. No falls. No chest pain. - Famotidine decreased. No GERD sx. Taki ng 40mg QD - Advised vitamin B12 and physical thera py. Smoking cessation is advised. - Mammo and Dexa scheduled. PT schedul ed. - Lung cancer screening inquired due to smoking, last one 2022 - Noted family history: cardiac issues, including a brother with cardiac interventions, and alcohol-related liver disease in her sister. - Atorvastatin was discontinued by dandy mane PCP; glucose trends improved post- medication adjustment. - New ear wax build-up symptoms due to p ossible cold, treated with swimmers ear drops. Family History - Significant heart issues on the patern al side; many relatives before age 65 due to heart conditions. - Brother with a pacemaker and prior car diac catheterization. - Sister with two liver transplants and subsequent due to alcohol-related liver disease. Review of Systems - Ear: Reports ear wax build-up and flui d sensation. - ENT: Reports drainage related to upper respiratory symptoms and cold. Exam Awake alert, frail Cerumen bilat EAC s/p lavage, TM intact dull bilat Bradycardic, regular rhythm LS dim throughout No edema BLE Mood and affect appropriate Results - Labs: Previous glucose levels recorded at 109, later reduced to 104 post- atorvastatin discontinuation. - Imaging: Prior CAT scan showing vascul ar calcification in the abdomen. Labs from 09/20/2024 show a normal CBC, normal electrolytes, normal renal function, normal iron, normal LFTs, normal lipid profile with LDL 94, normal vitamin-D and TSH, normal urine microalbumin creatinine ratio, b12 low Discussion Notes I discussed with the patient the adjustment of her current medications, reducing labetalol due to bradycardia. Famotidine was decreased, and she was advised to start vitamin B12 supplementation. Cessation of smoking was discussed, reflecting on her long-time smoking habit. Concerning her inquiry about lung cancer screening, I explained the lung screening program specifics at [facility] and ensured an order for a lung scan. Her familial history poses significant cardiac disease risks, necessitating a referral to cardiology. I outlined medication recommendations, including considerations for starting Zetia if future cholesterol management is needed. Ear symptoms indicated accumulation of ear wax, and I recommended ear flushing to alleviate discomfort. We discussed follow-up plans in two weeks to monitor medication adjustments. Assessment and Plan 1. Bradycardia: - Adjusted labetalol dosage from 100mg b id to 50mg bid. Monitor response and symptoms. 2. Hypertension: - Beta-fidel regimen adjusted; potenti al future therapies will be assessed as needed. 3. Hypercholesterolemia/CAD: - Consider Zetia if necessary, though c ould trial statin again. 4. Smoking Cessation: - Support cessation efforts due to healt h risks. 5. Ear Wax Impaction: - Recommended ear flushing for relief. 6. Family History of Heart Disease: - Discussed cardiology referral due to s ignificant family history. 7. Previous Cancer Scare: - Coordinated lung screening referral. Patient Instructions - Reduce labetalol dosage to 50 mg twice per day. - Decrease famotidine to 20 mg/day if po ssible. - Begin vitamin B12 supplement once maegan y as instructed. - Smoking cessation is strongly advised. Utilize available resources for help. - Arrange for ear flushing as recommendbaldomero d. - Expect a call regarding the lung cance r screening appointment at [facility]. - Follow up in two weeks to assess medic ation adjustments and overall status. Consent I obtained verbal consent from the patient for medication adjustments, including labetalol and famotidine, and for initiating vitamin B12 supplementation. The patient agreed to lung screening referral at [facility]. All alternatives, risks, and benefits of current and proposed therapies were discussed, with a clear understanding acknowledged by the patient. Further consent is deferred pending future medication and treatment decisions. Patient was informed and verbally consented to the use of an ambient scribe for clinic note documentation during this visit. Total time spent caring for the patient today was 50 minutes. This includes time spent before the visit reviewing the chart, time spent during the visit, and time spent after the visit on documentation, reviewing laboratory results, diagnostic imaging, medications, performing a medically necessary evaluation, counseling on diagnoses, care coordination, ordering appropriate tests, ordering appropriate medications, review of tests performed by other providers, reporting test results with the patient, communication with other healthcare providers. [facility] Medical History (Updated 09/20/24 @ 17:23 by [facility]) COPD (chronic obstructive pulmonary disease) ANA (obstructive sleep apnea) Pulmonary nodules Smoking Thyroid cancer Surgical History Previous back surgery H/O laminectomy History of bowel resection Family History Sister Depression Brother Depression HTN (hypertension) Father HTN (hypertension) Heart disease Paternal Grandfather HTN (hypertension) Brother Heart disease Other FH: mental illness Social History (Updated 09/20/24 @ 14:00 by Jesi Montes De Oca CMA) Housing: House Alcohol intake: current Patient Tobacco Use Status: Current everyday Tobacco user Tobacco use type: Cigarette Cigarettes Per Day: 10 Years Smoked: 20 e-Cigarette/Vaping Use: Never Used service: No Current occupational status: retired Cognitive needs: No Hearing needs: Yes (need hearing checked) Vision needs: Yes (glasses) Questionnaire Thrive Questionnaire Date Thrive assessed: 09/13/24 I am a: Patient What is your living situation today?: I have a steady place to live Within the past 12 months, did the food you bought not last and you didn't have the money to get more?: Never true Within the past 12 months, did you worry whether your food would run out before you got money to buy more?: Never true Do you have trouble paying for medicines?: Yes Do you have trouble getting transportation to medical appointments?: No Do you have trouble paying your heating and electricity bill?: Yes Do you have trouble taking care of your child, family member or friend?: No Do you have trouble with day-to-day activities such as bathing, preparing meals, shopping, managing finances, etc.?: I choose not to answer this question Are you currently unemployed and looking for a job?: No Are you interested in more education?: Yes Please select the resources that you would like help with: Paying for medicine Currently or been in a relationship where the following occur: No concerns reported THRIVE Score: 1 VIGNESH-7 AMB Questionnaire VIGNESH-7 Date VIGNESH - 7 assessed: 09/20/24 Source: Developed by Drs. Robert Rothman, Alexandria Frausto, Cristino Miller and colleagues, with an educational susy from [employer]. Physical exam (Primary Care) Vital Signs: Last Vital Signs Temp 97.9 F 10/05/24 11:35 Pulse 51 10/05/24 11:35 Resp 14 10/05/24 11:35 BP 144/73 H 10/05/24 11:35 Pulse Ox 94 10/05/24 11:35 Oxygen Delivery Method Room Air 10/05/24 11:35 BMI result Body Mass Index 19.5 Tobacco/Smoking Status: Tobacco use Status Tobacco use date assessed 09/20/24 10/05/24 11:43 Patient Tobacco Use Status Current everyday Tobacco 10/05/24 11:43 Tobacco use type Cigarette 10/05/24 11:43 e-Cigarette/Vaping Use Never Used 10/05/24 11:43 Thrive Assessment: Date of Thrive Assessment Date Thrive assessed 09/13/24 10/05/24 11:43 Currently or been in a relationship where the following occur: No concerns reported Office Procedures Cerumen Removal From which ear canal was the cerumen removed: bilateral Removal: irrigation Notes: patient tolerated procedure well, no complications and ear canal clear [id number]-[id number] Irrigation/Lavage Coding Level of Care Code Est Pt Level 5 (03599) Complex EM visit Add On G2211 Diagnoses Pulmonary nodules R91.8 Smoking F17.200 Tobacco use Z72.0 Coronary artery disease involving [place] coronary artery of [place] heart without angina pectoris I25.10 Associated angina: without angina Coronary Disease-Associated Artery/Lesion type: [place] artery [place] vs. transplanted heart: [place] heart Dizziness R42 Frequent falls R29.6 Primary hypertension I10 Hypertension type: primary hypertension Bilateral impacted cerumen H61.23 Laterality: bilateral CPT Codes Office Procedure - CPT: 27597-Fkd Irrigation/Lavage ([id number]) Assessment & Plan Assessment & Plan (1) Pulmonary nodules: Comment: 2022-LDCT RADS 2 Code(s): R91.8 - Other nonspecific abnormal finding of lung field Category: Medical (2) Smoking: Code(s): F17.200 - Nicotine dependence, unspecified, uncomplicated Category: Medical (3) Tobacco use: Code(s): Z72.0 - Tobacco use Category: Medical (4) CAD (coronary artery disease): Comment: severe atherosclerotic calcification of the aorta and moderate to severe calcifications of the iliofemoral vessels (CT abd pelvis 2023) Code(s): I25.10 - Atherosclerotic heart disease of [place] coronary artery without angina pectoris Category: Medical Qualifiers: Associated angina: without angina Coronary Disease-Associated Artery/Lesion type: [place] artery [place] vs. transplanted heart: [place] heart Qualified Code(s): I25.10 - Atherosclerotic heart disease of [place] coronary artery without angina pectoris (5) Dizziness: Code(s): R42 - Dizziness and giddiness Category: Medical (6) Frequent falls: Code(s): R29.6 - Repeated falls Category: Medical (7) HTN (hypertension): Code(s): I10 - Essential (primary) hypertension Category: Medical Qualifiers: Hypertension type: primary hypertension Qualified Code(s): I10 - Essential (primary) hypertension (8) Cerumen impaction: Code(s): H61.20 - Impacted cerumen, unspecified ear Qualifiers: Laterality: bilateral Qualified Code(s): H61.23 - Impacted cerumen, bilateral Plan . Orders: Referrals Lung Cancer Screening Referral F17.200 - Nicotine dependence, unspecified, uncomplicated, R91.8 - Other nonspecific abnormal finding of lung field, Z72.0 - Tobacco use Cardiology Referral I25.10 - Atherosclerotic heart disease of [place] coronary artery without angina pectoris Medications: Changed From labetalol 100 mg PO BID 60 tabs 0RF To labetalol 50 mg (1/2 x 100 mg) PO BID 60 tabs 0RF From famotidine 20 mg PO BID To famotidine 20 mg PO DAILY
[2024-10-05 11:35] VITALS: BP 144/73; PULSE 51; RESP 14; TEMP 36.6; O2SAT 94; BMI 19.5
--- OUTSIDE RECORDS SUMMARY | 2024-10-05 14:02 | XMS_ITS | Data Portability ---
Author Organization [facility], [facility] Address [address] [place] [address] Care Team Providers Care [place] Operator Name Role Phone EVERARDO VAZQUEZ Cytometry Technologist EMELIA ELIZABETH Primary Care Provider [phone] DEANNA JIMENEZ Orthopedist PARVEEN DELVALLE, DMITRIY Cotton Chopper [phone] Assessment Encounter Date Assessment Date Assessment LastModified [...] Modified Time Details Appointments None recorded. Lab TSH, serum or plasma 2023 [facility], [address] [place] [address], [id number], 12:31:07 T4, free, serum 2023 024 [facility], [address] [place] [address], [id number], 11:52:26 T3, total, serum 2023 [facility], [address] [place] [address], [address], 11:09:06 FSH (follicle-s timulating hormone), serum 2023 024 [facility], [address] [place] [address], 46077, 11:09:07 igf-1 (insulin-li ke growth factor), serum 2023 024 [facility], [address] [place] [address], 57748, 14:43:26 cortisol, am, serum 2023 024 [facility], [address] [place] [address], 126[address], 14:43:25 acth, plasma 2023 024 [facility], [address] [place] [address], 36[address], 14:43:27 prolactin, serum 2023 024 [facility], [address] [place] [address], 01436, 4 14:43:27 lipid panel, serum 2023 024 [facility], [address] [place] [address], 98202, 4 11:46:37 CBC 2023 024 [facility], [address] [place] [address], 76[address], 4 15:23:54 TSH, serum or plasma 2023 024 [facility], [address] [place] [address], 55238, 4 15:23:40 BMP, serum or plasma 2023 024 [facility], [address] [place] [address], 66428, 4 11:46:37 urinalysis, dipstick 2022 023 [facility], [address] [place] [address], 8[address], 3 13:57:42 Referral None recorded. Procedures None recorded. Surgeries None recorded. Imaging MAMMO, screening, tomosynthes is, bilateral 2022 023 [facility] (Im[facility]), [address], [place], [address], 3 16:06:19 LDCT, chest, for lung cancer screening - Please enroll this patient in the LDCT Lung Cancer Screening Program (for ordering, follow up and shared decision making)h as hx known nodules. Dr. Leavitt 09/04/212022 023 [facility], [address] [place], [address], 3 17:26:04 Medication Orders albuterol sulfate HFA 90 mcg/actuati on aerosol inhaler 2023 024 MICHELE [facility], [address] [place] [address], [address], [place], [place], [id number], 4 14:18:20 clotrimazol e 10 mg darian 2022 023 [email or web address] [facility], [address] [place], [address], [place], [place], [id number], 14:14:41 Patient TargetsNo targets recorded. Patient Instructions Encounter Date Encounter Id Patient Instructions Last Modified By Organization Details Last Modified Time 01/01/2023 [id number] high cholesterol lifestyle changes Not available 01/01/2023 14:40:56 advance directives: care instructions Not available 01/01/2023 14:40:57 preventing falls: care instructions Not available 01/01/2023 14:40:57 hearing loss: care instructions Not available 01/01/2023 14:40:56 well visit, over 65: care instructions Not available 01/01/2023 14:40:57 05/05/2024 [id number] - Get labs done before 8AM. 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}} {{adding exercise regular meals stress management impro [employer] sleep therapist identifying sponsor}} My Beep To Do List {{go to [employer] or call s ign up for maru text 2 quit or other stop smoking maru contact [facility] (SCCT).gov}} {{go to [employer] or call s ign up for maru text 2 quit or other stop smoking maru contact [place].gov}} {{go to [employer] or call s ign up for maru text 2 quit or other stop smoking maru contact smokeConnestaee.gov}} Not available 05/03/2024 09:03:04 06/23/2024 [id number] [email or web address] Not available 06/26/2024 18:30:45 6 months/ [...] My Health To Do List {{go to [employer] or call * sign up for maru text 2 quit or other stop smoking maru contact [facility] (SCCT).gov}} {{go to [employer] or call s ign up for maru text 2 quit or other stop smoking maru contact [place].gov*}} {{go to [employer] or call s ign up for maru text 2 quit or other stop smoking maru contact [place].gov}} Counseling done {{Patient not ready to quit [...] My Health To Do List {{go to [employer] or call s ign up for maru text 2 quit or other stop smoking maru contact smokefrMobilization Labs.gov}} {{go to [employer] or call s ign up for maru text 2 quit or other stop smoking maru contact [facility] (SCCT).gov}} {{go to [employer] or call s ign up for maru text 2 quit or other stop smoking maru contact [facility] (SCCT).gov}} [email or web address] Not available 06/23/2024 15:00:31 Reason for [...] furth er confi rmati on Not Available [address], [address], 12/25/2022 16:23:00 12/26/19 23 12/25/2022 HGB A1C estimated average glucose 102.5 mg/dL Not Available [address], [address], 12/25/2022 16:23:00 12/26/19 23 12/25/2022 VITAM IN [...] er than 30 ng/mL . Not Available [address], [address], 12/25/2022 16:26:10 12/26/1912/25/2022 TSH TSH 1.79 uIU/m L 0.50-6 .00 The Ameri can Colle ge of Endoc rinol ogy and Ameri can Thyro id Assoc iatio n recom mend goal TSH value s betwe en 0.4-4 .0 mIU/m L. Not Available [address], [address], 12/25/2022 16:26:15 12/26/19 23 12/25/2022 BASIC METAB OLIC PANEL glucose 120 mg/dL 70-100 high Not Available [address], [address], 12/25/2022 16:33:09 12/26/19 23 12/25/2022 BASIC METAB OLIC PANEL BUN 7 mg/dL 7-18 Not Available [address], [address], 12/25/2022 16:33:09 12/26/19 23 12/25/2022 BASIC METAB OLIC PANEL creatinine 0.8 mg/dL 0.8-1. 3 Not Available [address], [address], 12/25/2022 16:33:09 12/26/19 23 12/25/2022 BASIC METAB OLIC PANEL B/C 8.8 ratio Not Available [address], [address], 12/25/2022 16:33:09 12/26/19 23 12/25/2022 BASIC METAB [...] be used in pregn junaid. Not Available [address], [address], 12/25/2022 16:33:09 12/26/19 23 12/25/2022 BASIC METAB OLIC PANEL sodium 141 mmol/ L 136-14 5 Not Available [address], [address], 12/25/2022 16:33:09 12/26/19 23 12/25/2022 BASIC METAB OLIC PANEL potassium 3.6 mmol/ L 3.5-5. 1 Not Available [address], [address], 12/25/2022 16:33:09 12/26/19 23 12/25/2022 BASIC METAB OLIC PANEL chloride 98 mmol/ L 96-107 Not Available [address], [address], 12/25/2022 16:33:09 12/26/19 23 12/25/2022 BASIC METAB OLIC PANEL anion gap 11.7 5.0-15 .0 Not Available [address], [address], 12/25/2022 16:33:09 12/26/19 23 12/25/2022 BASIC METAB OLIC PANEL CO2 31 mmol/ L 21-32 Not Available [address], [address], 12/25/2022 16:33:09 12/26/19 23 12/25/2022 BASIC METAB OLIC PANEL calcium 9.4 mg/dL 8.5-10 .3 Not Available [address], [address], 12/25/2022 16:33:09 12/26/19 23 12/25/2022 LIPID PANEL cholesterol 178 mg/dL <200 mg/dl Rola able 200-2 39 mg/dl Borde rline High >240 mg/dl High Not Available [address], [address], 12/25/2022 16:33:11 12/26/19 23 12/25/2022 LIPID PANEL triglyceride s 76 mg/dL <150 mg/dL Mercedes l 150-1 99 mg/dL Borde rline High 200-4 99 mg/dL High >500 mg/dL Very High Not Available [address] [place], [address], 12/25/2022 16:33:11 12/26/19 23 12/25/2022 LIPID PANEL direct HDL 80 mg/dL <40 mg/dl - Major Risk for CHD >60 mg/dl - Negat wesley Risk for CHD Not Available [address] [place], [address], 12/25/2022 16:33:11 12/26/19 23 12/25/2022 DIREC T LDL direct LDL 73 mg/dL RISK CATEG ORY LDL GOAL _ CHD or CHD Risk Equiv alent s <100 mg/dl (10-y ear risk >20%) 2+ Risk Facto rs <130 mg/dl (10-y ear risk <= 20%) 0-1 Risk Facto r??? <160 mg/dl ??? Almos t all peopl e with 0-1 risk facto r have a 10 year risk <10%, thus 10 year risk asses ment in peopl e with 0-1 risk facto r is not braxton liang. Not Available [address], [address], 12/25/2022 16:33:14 01/02/20 23 01/01/2023 POC UA glu UA NEGATI VE Not Available [facility] [address] [place] [address], [address], 01/01/2023 13:57:42 01/02/20 23 01/01/2023 POC UA clarity UA CLEAR Not Available [facility] [address] [place] [address], 559[address], 01/01/2023 13:57:42 01/02/20 23 01/01/2023 POC UA uro UA 0.2000 Not Available [facility] [address] [place] [address], 316[address], 01/01/2023 13:57:42 01/02/20 23 01/01/2023 POC UA ket UA NEGATI VE Not Available [facility] [address] [place] [address], 97[address], 01/01/2023 13:57:42 01/02/20 23 01/01/2023 POC UA pro UA NEGATI VE Not Available [facility] [address] [place] [address], 876[address], 01/01/2023 13:57:42 01/02/20 23 01/01/2023 POC UA nit UA NEGATI VE Not Available [facility] [address] [place] [address], 29015, 01/01/2023 13:57:42 01/02/20 23 01/01/2023 POC UA rebekah UA NEGATI VE Not Available [facility] [address] [place] [address], 01197, 01/01/2023 13:57:42 01/02/20 23 01/01/2023 POC UA pH UA 7.0000 Not Available [facility] [address] [place] [address], 83351, 01/01/2023 13:57:42 01/02/20 23 01/01/2023 POC UA SG UA 1.0200 Not Available [facility] [address] [place] [address], 968[address], 01/01/2023 13:57:42 01/02/20 23 01/01/2023 POC UA color UA YELLOW Not Available [facility] [address] [place] [address], 045[address], 01/01/2023 13:57:42 01/02/20 23 01/01/2023 POC UA blo UA NEGATI VE Not Available [facility] [address] [place] [address], 86436, 01/01/2023 13:57:42 01/02/20 23 01/01/2023 POC UA bren UA NEGATI VE Not Available [facility] [address] [place] [address], [address], 01/01/2023 13:57:42 02/05/20 24 02/05/2024 HGB A1C [...] furth er confi rmati on Not Available [address], [address], 02/05/2024 15:16:31 02/05/20 24 02/05/2024 HGB A1C estimated average glucose 105.4 mg/dL Not Available [address], [address], 02/05/2024 15:16:31 02/05/20 24 02/05/2024 CBC WBC 7.83 K/??L 3.98-1 0.04 Not Available [address], [address], 02/05/2024 15:23:54 02/05/20 24 02/05/2024 CBC RBC 4.36 M/??L 3.93-5 .22 Not Available [address], [address], 02/05/2024 15:23:54 02/05/20 24 02/05/2024 CBC HGB 14.3 g/dL 11.2-1 5.7 Not Available [address], [address], 02/05/2024 15:23:54 02/05/20 24 02/05/2024 CBC HCT 41.8 % 34.1-4 4.9 Not Available [address], [address], 02/05/2024 15:23:54 02/05/20 24 02/05/2024 CBC MCV 95.9 fL 79.4-9 4.8 high Not Available [address], [address], 02/05/2024 15:23:54 02/05/20 24 02/05/2024 CBC MCH 32.8 pg 25.6-3 2.2 high Not Available [address], [address], 02/05/2024 15:23:54 02/05/20 24 02/05/2024 CBC MCHC 34.2 g/dL 32.2-3 5.5 Not Available [address], [address], 02/05/2024 15:23:54 02/05/20 24 02/05/2024 CBC plt 225 K/??L 182-36 9 Not Available [address], [address]64, 02/05/2024 15:23:54 02/05/20 24 02/05/2024 CBC MPV 10.8 fL 9.4-12 .3 Not Available [address], 8[address]65, 02/05/2024 15:23:54 02/05/20 24 02/05/2024 CBC neut% 71.8 % 34.0-7 1.1 high Not Available [address], [address], 02/05/2024 15:23:54 02/05/20 24 02/05/2024 CBC neut# 5.62 1.56-6 .13 Not Available [address], 86668, 02/05/2024 15:23:54 02/05/20 24 02/05/2024 CBC lymph % 20.9 % 19.3-5 1.7 Not Available [address], [address], 02/05/2024 15:23:54 02/05/20 24 02/05/2024 CBC lymph # 1.64 K/??L 1.18-3 .74 Not Available [address], [address], 02/05/2024 15:23:54 02/05/20 24 02/05/2024 CBC mono% 5.6 % 4.7-12 .5 Not Available [address], [address]26[address], 02/05/2024 15:23:54 02/05/20 24 02/05/2024 CBC mono# 0.44 0.24-0 .56 Not Available [address], [address], 02/05/2024 15:23:54 02/05/20 24 02/05/2024 CBC eo% 0.8 % 0.7-5. 8 Not Available [address], [address], 02/05/2024 15:23:54 02/05/20 24 02/05/2024 CBC eo# 0.06 0.04-0 .36 Not Available [address], [address], 02/05/2024 15:23:54 02/05/20 24 02/05/2024 CBC baso% 0.6 % 0.1-1. 2 Not Available [address], [address], 02/05/2024 15:23:54 02/05/20 24 02/05/2024 CBC baso# 0.05 0.00-0 .08 Not Available [address], [address], 02/05/2024 15:23:54 02/05/20 24 02/05/2024 CBC RDW-CV 12.3 % 11.7-1 4.4 Not Available [address], [address], 02/05/2024 15:23:54 02/05/20 24 02/05/2024 CBC Ig% 0.300 % 0.000- 1.500 Ig % >0.5 Indic ates possi ble Left Shift Not Available [address], [address], 02/05/2024 15:23:54 02/05/20 24 02/05/2024 CBC Ig# 0.020 0.000- 0.093 Not Available [address], [address], 02/05/2024 15:23:54 02/05/20 24 02/05/2024 CBC NRBC% 0.0 % 0.0-0. 2 Not Available [address], [address], 02/05/2024 15:23:54 02/05/20 24 02/05/2024 CBC NRBC# 0.000 0.000- 0.012 Not Available [address], [address], 02/05/2024 15:23:54 02/05/20 24 02/08/2024 BASIC METAB OLIC PANEL glucose 113 mg/dL 70-100 high Not Available [address], [address], 02/08/2024 11:46:36 02/05/20 24 02/08/2024 BASIC METAB OLIC PANEL BUN 16 mg/dL 7-18 Not Available [address], [address], 02/08/2024 11:46:36 02/05/20 24 02/08/2024 BASIC METAB OLIC PANEL creatinine 0.7 mg/dL 0.8-1. 3 low Not Available [address], [address], 02/08/2024 11:46:36 02/05/20 24 02/08/2024 BASIC METAB OLIC PANEL B/C 22.9 ratio Not Available [address], [address], 02/08/2024 11:46:36 02/05/20 24 02/08/2024 BASIC METAB [...] be used in pregn junaid. Not Available [address], [address], 02/08/2024 11:46:36 02/05/20 24 02/08/2024 BASIC METAB OLIC PANEL sodium 142 mmol/ L 136-14 5 Not Available [address], [address], 02/08/2024 11:46:36 02/05/20 24 02/08/2024 BASIC METAB OLIC PANEL potassium 4.5 mmol/ L 3.5-5. 1 Not Available [address], [address], 02/08/2024 11:46:36 02/05/20 24 02/08/2024 BASIC METAB OLIC PANEL chloride 102 mmol/ L 96-107 Not Available [address], [address], 02/08/2024 11:46:36 02/05/20 24 02/08/2024 BASIC METAB OLIC PANEL anion gap 11.9 5.0-15 .0 Not Available [address], [address], 02/08/2024 11:46:36 02/05/20 24 02/08/2024 BASIC METAB OLIC PANEL CO2 28 mmol/ L 21-32 Not Available [address], [address], 02/08/2024 11:46:36 02/05/20 24 02/08/2024 BASIC METAB OLIC PANEL calcium 9.5 mg/dL 8.5-10 .3 Not Available [address], [address], 02/08/2024 11:46:36 02/05/20 24 02/08/2024 LIPID PANEL cholesterol 204 mg/dL <200 mg/dl Rola able 200-2 39 mg/dl Borde rline High >240 mg/dl High Not Available [address], [address], 02/08/2024 11:46:37 02/05/20 24 02/08/2024 LIPID PANEL triglyceride s 63 mg/dL <150 mg/dL Mercedes l 150-1 99 mg/dL Borde rline High 200-4 99 mg/dL High >500 mg/dL Very High Not Available [address], [address], 02/08/2024 11:46:37 02/05/20 24 02/08/2024 LIPID PANEL direct HDL 72 mg/dL <40 mg/dl - Major Risk for CHD >60 mg/dl - Negat wesley Risk for CHD Not Available [address], [address], 02/08/2024 11:46:37 02/05/20 24 02/08/2024 DIREC T LDL direct LDL 109 mg/dL RISK CATEG ORY LDL GOAL _ CHD or CHD Risk Equiv alent s <100 mg/dl (10-y ear risk >20%) 2+ Risk Facto rs <130 mg/dl (10-y ear risk <= 20%) 0-1 Risk Facto r??? <160 mg/dl ??? Almos t all peopl e with 0-1 risk facto r have a 10 year risk <10%, thus 10 year risk asses ment in peopl e with 0-1 risk facto r is not braxton tavera. Not Available [address], [address], 02/08/2024 11:46:38 02/05/20 24 02/08/2024 TSH TSH 1.32 uIU/m L 0.50-6 .00 The Ameri can Colle ge of Endoc rinol ogy and Mameeri can Thyro id Assoc iatio n recom mend goal TSH value s betwe en 0.4-4 .0 mIU/m L. Not Available [address], [address], 02/08/2024 15:23:40 02/29/20 24 03/01/2024 FREE T4 free T4 0.71 NG/dL 0.75-1 .54 low Not Available [address], [address], 03/01/2024 10:48:50 02/29/20 24 03/01/2024 VITAM IN [...] er than 30 ng/mL . Not Available [address], [address], 03/01/2024 10:55:50 02/29/20 24 03/01/2024 TSH TSH 2.30 uIU/m L 0.50-6 .00 The Ameri can Colle ge of Endoc rinol ogy and Ameri can Thyro id Assoc iatio n recom mend goal TSH value s betwe en 0.4-4 .0 mIU/m L. Not Available [address], [address], 03/01/2024 11:03:38 05/31/20 24 05/31/2024 FREE T4 free T4 0.80 NG/dL 0.75-1 .54 Not Available [address], [address], 05/31/2024 11:52:26 05/31/20 24 05/31/2024 TSH TSH 4.12 uIU/m L 0.50-6 .00 The Ameri can Colle ge of Endoc rinol ogy and Ameri can Thyro id Assoc iatio n recom mend goal TSH value s betwe en 0.4-4 .0 mIU/m L. Not Available [address], [address], 05/31/2024 12:31:07 05/31/20 24 06/01/2024 TOTAL T3 total T3 1.28 NG/mL 0.70-1 .70 Not Available [address], [address], 06/01/2024 11:09:06 05/31/20 24 06/01/2024 FSH FSH 70.6 mIU/m L Male: 1.0 - 42.5 mIU/m L Femal e Ovula ting: Folli cular Phase : 2.7 - 15.4 mIU/m L Peak: 3.9 - 22.0 mIU/m L Lutea l Phase : 1.0 - 14.4 mIU/m L Postm enopa usal: 25.0 - 160.0 mIU/m L Not Available [address], [address], 06/01/2024 11:09:07 05/31/20 24 06/01/2024 LIPID PANEL cholesterol 219 mg/dL <200 mg/dl Rola able 200-2 39 mg/dl Borde rline High >240 mg/dl High Not Available [address], [address], 06/01/2024 14:38:40 05/31/20 24 06/01/2024 LIPID PANEL triglyceride s 150 mg/dL <150 mg/dL Mercedes l 150-1 99 mg/dL Borde rline High 200-4 99 mg/dL High >500 mg/dL Very High Not Available [address], [address], 06/01/2024 14:38:40 05/31/20 24 06/01/2024 LIPID PANEL direct HDL 70 mg/dL <40 mg/dl - Major Risk for CHD >60 mg/dl - Negat wesley Risk for CHD Not Available [address], [address], 06/01/2024 14:38:40 05/31/20 24 06/01/2024 LDL - CALCU LATED LDL - calculated 119 RISK CATEG ORY LDL GOAL _ CHD or CHD Risk Equiv alent s <100 mg/dl (10-y ear risk >20%) 2+ Risk Facto rs <130 mg/dl (10-y ear risk <= 20%) 0-1 Risk Facto r??? <160 mg/dl ??? Almos t all peopl e with 0-1 risk facto r have a 10 year risk <10%, thus 10 year risk asses ment in peopl e with 0-1 risk facto r is not braxton tavera. Not Available [address], [address], 06/01/2024 14:38:42 05/31/20 24 06/01/2024 BASIC METAB OLIC PANEL glucose 104 mg/dL 70-100 high Not Available [address], [address], 06/01/2024 15:00:52 05/31/20 24 06/01/2024 BASIC METAB OLIC PANEL BUN 14 mg/dL 7-18 Not Available [address], [address], 06/01/2024 15:00:52 05/31/20 24 06/01/2024 BASIC METAB OLIC PANEL creatinine 0.8 mg/dL 0.8-1. 3 Not Available [address], [address], 06/01/2024 15:00:52 05/31/20 24 06/01/2024 BASIC METAB OLIC PANEL B/C 17.5 ratio Not Available [address], [address], 06/01/2024 15:00:52 05/31/20 24 06/01/2024 BASIC METAB [...] borat ion (CKD- EPI) Equat ion (Sarahi reveles et. al 2020) as recom haris d by the Natio nal [facility] y Found ation . eGFR is based on age, serum creat inine , and sex. CKD-E PI does not calcu late eGFR by race, does not apply to child jessica (age <18 years ), and shoul d not be used in pregn junaid. Not Available [address], [address], 06/01/2024 15:00:52 05/31/2006/01/2024 BASIC METAB OLIC PANEL sodium 144 mmol/ L 136-14 5 Not Available [address], [address], 06/01/2024 15:00:52 05/31/2006/01/2024 BASIC METAB OLIC PANEL potassium 4.1 mmol/ L 3.5-5. 1 Not Available [address], [address], 06/01/2024 15:00:52 05/31/2006/01/2024 BASIC METAB OLIC PANEL chloride 104 mmol/ L 96-107 Not Available [address], [address]47, 06/01/2024 15:00:52 05/31/2006/01/2024 BASIC METAB OLIC PANEL anion gap 9.8 5.0-15 .0 Not Available [address], [address], 06/01/2024 15:00:52 05/31/2006/01/2024 BASIC METAB OLIC PANEL CO2 30 mmol/ L 21-32 Not Available [address], [address], 06/01/2024 15:00:52 05/31/2006/01/2024 BASIC METAB OLIC PANEL calcium 9.7 mg/dL 8.5-10 .3 Not Available [address], [address], 06/01/2024 15:00:52 05/31/20 24 06/07/2024 IGF 1, LC/MS igf 1, lc/MS 129 NG/mL 34-245 Not Available [facility] [address], [address], 06/07/2024 14:43:26 05/31/2006/07/2024 IGF 1, LC/MS Z score (female) 0.4 SD -2.0 - +2.0 This test was devel oped and its arnold tical perfo rmanc e kamari cteri stics have been deter mined by [employer] [facility]. It has not been clear ed or appro ariel by FDA. This assay has been valid ated pursu ant to the CLIA regul ation s and is used for clini laney purpo ses. Not Available [facility] [address], [place], [address], 06/07/2024 14:43:26 05/31/20 24 06/07/2024 ACTH, PLASM A acth, plasma 18 pg/mL 6-50 Refer ence range appli es only to speci mens colle cted betwe en 7am-1 0am. Not Available [facility] [address], [place], [address], 06/07/2024 14:43:26 05/31/2006/07/2024 PROLA CTIN prolactin 9.4 NG/mL normal Refer ence Range Femal es Non-p regna nt 3.0-3 0.0 Pregn ant 10.0- 209.0 Postm enopa usal 2.0-2 0.0 Not Available [facility] [address], [address], 06/07/2024 14:43:27 04/24/2004/24/2023 LDCT, chest , for lung cance r scree luisito No observ ation record ed. [facility] [address], [place], [address], 04/28/2023 17:05:43 04/27/20 23 04/27/2023 MAMMO , [...] y was mailed to your patien t indica ting the result s and recomm endati ons [...] PM Reji francis Physic frank: Jai mckee [facility] (Imaging) [address], [place], [address], 04/27/2023 16:30:52 Result Notes None recorded. Problems Name Problem SNOMED Code Status Onset Date Resolution Date Notes Provider Name and Address Organization Details Recorded Time Joint pain 41193699 Completed 01/01/2023 CATHERINE Garza [address] [place] [address], [id number] , [facility] 3 14:47:10 Backache [id number] Completed 11/15/2014 Yeny Elizabeth NP [address] [place] [address], [phone] , [facility] 5 20:40:22 Sinusiti s [id number] Completed 11/15/2014 Yeny Elizabeth NP [address] [place] [address], [phone] , [facility] 5 20:43:58 Sleep apnea 96231224 Active Not Available [facility] 4 00:24:30 Backache [id number] Active Not Available [facility] 4 00:24:29 Impaired fasting glycemia 681523895 Active 2017 Not Available [facility] 4 00:24:29 Vitamin D deficien cy 70116279 Active 2020 Not Available [facility] 4 00:24:29 Multiple nodules of lung 712149174 Active 2020 non-canc erous. followed by Dr. Julio lawrence. 09/04/21 note - surveill ance is complete . Not Available [facility] 4 00:24:30 Chronic obstruct wesley pulmonar y disease 63676595 Active 2020 PFT 1 Not Available [facility] 4 00:24:29 Osteoart hritis of right hip joint [id number] 9107 Active 2021 follows w/ [facility]. Not Available [facility] 4 00:24:29 History of subtotal thyroide ctomy 740450385 Active 2021 Not Available [facility] 4 00:24:30 Decrease d body mass index 8269887 Completed 202101/01/2023 CATHERINE Garza [address] [place] [address], [id number] , [facility] 3 13:54:15 Bone density finding 360912241 Active 2022 Not Available [facility] 4 00:24:29 Major depressi on, melancho lic type 725465506 Active 2022 Not Available [facility] 4 00:24:29 History of partial resectio n of colon 192963291 Active 2022 Not Available [facility] 4 00:24:30 Mixed hyperlip idemia 431778742 Active Not Available [facility] 4 00:24:29 Head and neck swelling 208600333 Completed 200206/29/2013 Not Available [facility] 3 02:04:11 Single major depressi ve episode, mild Completed 200611/15/2014 Yeny Elizabeth NP [address] [place] [address], [id number] , [facility] 5 20:42:37 Benign neoplasm of skin of trunk, excludin g scrotum Completed 200506/29/2013 Not Available [facility] 3 02:04:05 Essentia l hyperten camryn 15290897 Active Not Available [facility] 4 00:24:30 Chronic nonalcoh olic liver disease 46486126 Active Not Available [facility] 4 00:24:30 Gastroes ophageal reflux disease 866202683 Active Not Available [facility] 4 00:24:29 Non-toxi c uninodul ar goiter 551657171 Completed 11/15/2014 Yeny Elizabeth NP [address] [place] [address], [address] , [facility] 5 20:42:37 Anxiety state 639581922 Completed 11/15/2014 Yeny Elizabeth NP [address] [place] [address], [address] , [facility] 5 20:42:37 Acute pharyngi tis 521730068 Completed 06/29/2013 Not Available [facility] 3 02:01:17 Allergic rhinitis 92795239 Active Not Available [facility] 4 00:24:30 Epidermo id cyst of skin 781449617 Completed 200506/29/2013 Not Available [facility] 3 02:02:53 Elevated blood-pr essure reading without diagnosi s of hyperten camryn 410920946 Completed 200211/15/2014 Yeny Elizabeth NP [address] [place] [address], [address] , [facility] 5 20:40:22 Organic sleep apnea 315437605 Completed 11/15/2014 Yeny Elizabeth NP [address] [place] [address], [address] , [facility] 5 20:40:22 Organic sleep disorder 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 Completed 11/15/2014 Yeny Elizabeth NP [address] [place] [address], [address] , [facility] 5 20:40:22 Acute bronchit is 92613656 Completed 06/29/2013 Not Available [facility] 3 02:01:36 Malaise and fatigue 100311088 Completed 06/29/2013 Not Available [facility] 3 02:00:18 Blood in urine 70120613 Completed 200511/15/2014 Yeny Elizabeth NP [address] [place] [address], [address] , [facility] 5 20:43:58 Carpal tunnel syndrome 88567899 Active 2003 surgery 2010 Not Available [facility] 4 00:24:30 Kidney stone 41658630 Completed 200701/01/2023 CATHERINE Garza [address] [place] [address], [address] , [facility] 3 14:47:07 Ureteric stone 85216266 Completed 200511/15/2014 Yeny Elizabeth NP [address] [place] [address], [address] , [facility] 5 20:43:58 Right upper quadrant pain 137142801 Completed 06/29/2013 Not Available [facility] 3 02:03:18 Sleep disorder 56273450 Completed 11/15/2014 Yeny Elizabeth NP [address] [place] [address], [address] , [facility] 5 20:40:22 Orthosta tic hypotens ion 85615403 Completed 11/15/2014 Yeny Elizabeth NP [address] [place], [address] , [facility] 5 20:40:22 Lymphade nopathy 19269657 Completed 200206/29/2013 Not Available [facility] 3 02:03:13 Tobacco user 877068273 Completed 200211/15/2014 Yeny Elizabeth NP [address] [place], [address] , [facility] 5 20:42:37 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 200511/15/2014 Yeny Elizabeth NP [address] [place] [address], [address] , [facility] 5 20:43:58 Sprain of ankle 62135121 Completed 200406/29/2013 Not Available [facility] 3 02:02:51 Syncope and collapse 881416451 Completed 11/15/2014 Yeny Elizabeth NP [address] [place] [address], [address] , [facility] 5 20:40:22 Joint pain in ankle and foot Completed 200406/29/2013 Not Available [facility] 3 02:01:26 Acute sinusiti s 26742009 Completed 06/29/2013 Not Available [facility] 3 02:02:20 Finding by method 385657938 Completed 200206/29/2013 Not Available [facility] 3 02:01:56 Breast lump 74431137 Completed 200211/15/2014 Yeny Elizabeth NP [address] [place] [address], [address] , [facility] 5 20:40:22 Common cold 13191048 Completed 06/29/2013 Not Available [facility] 3 02:00:28 Mammogra phy abnormal 229197640 Completed 200611/15/2014 Yeny Elizabeth NP [address] [place] [address], [address] , [facility] 5 20:45:31 Idiopath ic peripher al neuropat hy 76806233 Completed 200711/15/2014 Yeny Elizabeth NP [address] [place] [address], [address] , [facility] 5 20:42:37 On examinat ion - a rash Completed 06/29/2013 Not Available [facility] 3 02:00:49 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 Not Available [facility] 4 00:24:30 Dysphagi a 75110844 Completed 11/15/2014 Yeny Elizabeth NP [address] [place] [address], [address] , [facility] 5 20:40:22 Abnormal cervical Papanico laou smear 444847941 Completed 200711/15/2014 Yeny Elizabeth NP [address] [place] [address], , [facility] 5 20:55:49 Non-orga evelyn sleep disorder 852122567 Completed 200511/15/2014 Yeny Elizabeth NP [address] [place] [address], , [facility] 5 20:40:22 Open wound of scalp 881341200 Completed 06/29/2013 Not Available [facility] 3 02:04:18 Low back pain 707763237 Completed 01/01/2023 CATHERINE Garza [address] [place] [address], [address] , [facility] 3 14:47:05 Hypothyr oidism 22543830 Completed 200211/15/2014 Yeny Elizabeth NP [address] [place] [address], [address] , [facility] 5 20:42:37 Mononeur itis 87718830 Completed 200701/01/2023 CATHERINE Garza [address] [place] [address], [address] , [facility] 3 14:47:13 Abnormal findings on diagnost ic imaging of skull and head 933038638 Active Not Available [facility] 4 00:24:29 Pain in limb 62726187 Completed 200406/29/2013 Not Available [facility] 3 02:00:56 Heartbur n 71115541 Completed 06/29/2013 Not Available [facility] 3 02:03:55 Difficul ty speaking Completed 11/15/2014 Yeny Elizabeth NP [address] [place], [address] , [facility] 5 20:40:22 Notes:Some problems listed i n Documents: #[id number], #[id number], #[id number], #[id number], #[id number], #[id number] could not be added to this patient's chart. Please review these documents and add these problems to the patient's chart manually as needed. Problem Notes None recorded. Procedures Surgical History Date Name Laterality Status Provider Name and Address Organization Details Recorded Time 024 Smoking cessation counseling completed Rosa Tran LPN [facility] 06/21/2024 11:57:13 024 Smoking cessation counseling completed Rosa Tran LPN [facility] 05/03/2024 09:03:04 023 Smoking cessation counseling cancelled Rayna Stapleton [facility] 06/29/2023 09:58:39 023 Smoking cessation counseling cancelled Rosa Tran LPN [facility] 03/31/2023 14:40:47 023 Smoking cessation counseling completed CATHERINE Garza [address] [place], [address], [facility] 01/01/2023 14:12:24 023 Medicare Wellness Visit completed Gisselle Cid MA [facility] 01/01/2023 13:36:59 022 Smoking cessation counseling completed Gisselle Cid MA [facility] 05/16/2022 14:20:29 022 Smoking cessation counseling completed Everardo Vazquez MD [address] [place], [address], [facility] 04/03/2022 10:41:44 022 Medicare Wellness Visit completed Xiomy Gooden [facility] 12/23/2021 13:50:31 022 Alcohol use screening completed Xiomy Gooden [facility] 12/23/2021 13:50:31 022 Cardiovascular disease risk reduction counseling completed Xiomy Gooden [facility] 12/23/2021 13:50:31 021 Smoking cessation counseling completed Loreta Gloria RN [facility] 07/18/2021 11:27:55 021 Smoking cessation counseling completed Hailey Fleming [facility] 06/05/2021 10:57:46 021 partial lobectomy of thyroid completed Yeny Elizabeth NP [address] [place], [address], [facility] 06/02/2021 12:35:36 021 Biopsy of thyroid completed Dixie Underwood LPN [facility] 01/03/2021 14:35:31 021 Medicare Wellness Visit completed Baldemar Thompson [facility] 12/06/2020 08:49:12 021 COPD Screening completed Baldemar Thompson [facility] 12/06/2020 11:33:22 021 prevention-cardio vascular risk reduction counseling completed Baldemar Thompson [facility] 12/06/2020 08:49:12 021 prevention-annual alcohol misuse screening completed Baldemar Thompson [facility] 12/06/2020 08:49:12 021 biopsy of thyroid completed Dixie Underwood LPN [facility] 12/20/2020 15:57:05 021 Medicare Wellness Visit completed Baldemar Thompson [facility] 08/21/2020 08:16:38 021 prevention-cardio vascular risk reduction counseling completed Baldemar Thompson CMA [facility] 08/21/2020 08:16:38 021 prevention-annual alcohol misuse screening completed Baldemar Thompson CMA [facility] 08/21/2020 08:16:38 019 Nebulizer Tx completed Shaquilleirmayang Archer [facility] 09/14/2018 18:02:56 014 Other (specify) completed Yeny Elizabeth NP [address] [place], [address], [facility] 11/15/2014 20:37:49 012 Suture/staple Removal completed Yeny Elizabeth NP [address] [place], [address], [facility] 09/19/2011 17:19:53 011 Carpal Tunnel Surgery completed Yeny Elizabeth NP [address] [place], [address], [facility] 09/12/2011 12:33:44 004 completed Not Available [facility] 06:05:52 Back Surgery completed Yeny alexandre NP [address] [place], [address], [facility] 04/10/2015 11:56:53 repair of tendon completed Dixie Underwood LPN [facility] 12/20/2020 15:57:18 Imaging Results Imaging Date Name Status LastModified by Organiz ation Details LastModified Time 04/24/2023 LDCT, chest, for lung cancer screening completed [facility] [address] [place], [address], 04/28/2023 17:05:43 04/27/2023 MAMMO, screening, tomosynthesis, bilateral completed rafi [facility] (Imaging) [address], [place], [address], 04/27/2023 16:30:52 Procedure Notes None recorded. Medical Equipment None Reported. Allergies Allergen ID Allergen Name Allergen Category Reaction Reaction Severity Criticality Documentation Date Start Date Code Code System Note Provider Name and Address Organization Details Recorded Time 146133 metoprolo l Not available Not available Not available Not available 01/24/2013 6918 RxNorm marito cardi a. Yeny Elizabeth NP [facility] [place], [address], [facility] 3 11:47:43 754605 spironola ctone medicatio n dizziness Not available Not available 01/25/2016 9997 RxNorm Yeny Elizabeth NP [address] [place] [address] [place], [address], [facility] 6 16:15:07 01458 penicilli n G Not available itching Not available Not available 07/30/2009 7980 RxNorm insid e of skin Not Available [facility] 1 06:05:20 589343 bupropion Not available other Not available Not available 01/26/2017 24703 RxNorm nonst op crypopeye gYeny NP [address] [place] [address] [place], [address], [facility] 7 16:46:02 88835 hydrochlo rothiazid e medicatio n other severe Not available 10/25/2011 5487 RxNorm ortho stasi s and synco pe Yeny Elizabeth NP [address] [place], [place] [address], [address], [facility] 2 18:26:45 93946 amlodipin e medicatio n other severe Not available 10/25/2011 18269 RxNorm ortho stasi s and synco pe Yeny Elizabeth NP [address] [place] [address] [place], [address], [facility] 2 18:26:45 42959 lisinopri l medicatio n cough Not available Not available 10/28/2011 89583 RxNorm Yeny Elizabeth NP [address] [place], [address], [facility] 2 11:17:27 54839 Diovan medicatio n other mild Not available 11/10/2011 77214 2 RxNorm diarr hea and insom caridad Yeny Elizabeth, ANITRA [address] [place] [address], [facility] [place], [address], [facility] 2 11:50:20 Medications Name Sig Start Date [...] tablet TAKE 2 TABLETS BY MOUTH DAILY 2024 active Not Available Not Available Not Avai [...] active Not Available Not Available Not Catherine labludmila Nifedical XL 60 mg tablet,ex tended release [...] active Not Available Not Available Not Catherine Enciso CQ 1 pathc transder mal daily 2022 [...] Not Available Not Available [facility] ([facility]) 45 mcg (15 mcg x 3)/0.5 mL intramusc ular syringe inject 0.5 millilit er intramus cularly active Not Available Not Available No t Available fluticaso ne 113 mcg-salme terol 14 mcg/actua tion breath activated powdr INHALE 1 PUFF BY MOUTH EVERY 12 HOURS active Not Available Not Available No t Available [facility] 7024-35[facility] (PF) 45 mcg(15 mcg x 3)/0.5 mL [...] Updated DateTime 3 161.29 cm 20 kg/m2 07881.3 3 g 56 /min 142 mm[Hg] 82 mm[Hg] Gisselle Cid [facility] 3 13:45:40 Date Recorded Systolic blood pressure Diastolic blood pressure Provider Name and Address Organization Details Last Updated DateTime 01/01/2023 144 mm[Hg] 82 mm[Hg] CATHERINE Garza [address] [place] [address], [address], [facility] 01/01/2023 14:44:45 Date Recorded Heart rate Systolic blood pressure Diastolic blood pressure Provider Name and Address Organization Details Last Updated DateTime 05/01/2023 52 /min 131 mm[Hg] 86 mm[Hg] Jaida Rosales [facility] 05/01/2023 14:27:03 Date Recorded Body height Heart rate Systolic blood pressure Diastolic blood pressure Provider Name and Address Organization Details Last Updated DateTime 05/18/2023 161.29 cm 50 /min 164 mm[Hg] 76 mm[Hg] Jaimee Lowe RN BSN [facility] 05/18/2023 11:57:49 Date Recorded Body height Provider Name an d Address Organization Details Last Updated DateTime 06/29/2023 161.29 cm Rayna Stapleton [facility] 06/29/2023 09:58:50 Date Recorded Body height Body mass index (BMI) Body weight Heart rate Systolic blood pressure Diastolic blood pressure Provider Name and Address Organization Details Last Updated DateTime 4 161.29 cm 20.3 kg/m2 19582.1 1 g 52 /min 128 mm[Hg] 78 mm[Hg] Minerva Soto [facility] 4 13:56:26 Date Recorded Body height Body mass index (BMI) Body weight Heart rate Systolic blood pressure Diastolic blood pressure Provider Name and Address Organization Details Last Updated DateTime 4 160.02 cm 19.2 kg/m2 01015.4 1 g 49 /min 121 mm[Hg] 65 mm[Hg] Rosa Tran LPN [facility] 4 08:51:37 Date Recorded Body height Body mass index (BMI) Body weight Heart rate Systolic blood pressure Diastolic blood pressure Provider Name and Address Organization Details Last Updated DateTime 4 160.02 cm 19.6 kg/m2 78963.0 3 g 56 /min 136 mm[Hg] 74 mm[Hg] Rosa Tran LPN [facility] 4 13:55:04 Date Recorded Systolic blood pressure Diastolic blood pressure Provider Name and Address Organization Details Last Updated DateTime 01/28/2023 121 mm[Hg] 81 mm[Hg] CATHERINE Garza [address] [place] [address], [address] 02/06/2023 16:28:51 Date Recorded Systolic blood pressure Diastolic blood pressure Systolic blood pressure Diastolic blood pressure Provider Name and Address Organization Details Last Updated DateTime 05/21/2023 148 mm[Hg] 84 mm[Hg] 160 mm[Hg] 97 mm[Hg] [facility] 3 15:52:51 Date Recorded Systolic blood pressure Diastolic blood pressure Systolic blood pressure Diastolic blood pressure Provider Name and Address Organization Details Last Updated DateTime 05/22/2023 152 mm[Hg] 90 mm[Hg] 171 mm[Hg] 87 mm[Hg] Jatin Stapleton [facility] 3 15:53:30 Date Recorded Systolic blood pressure Diastolic blood pressure Provider Name and Address Organization Details Last Updated DateTime 07/27/2023 117 mm[Hg] 78 mm[Hg] Radha Saini [facility] 07/27/2023 14:36:24 Social History Question Answer Notes LastModified by Organization Details LastModified Time Tobacco Smoking Status Current Some Day Smoker PT currently smoking occasionally ALISSA Mulligan [facility] 04/03/2022 09:45:37 What Is Your Level Of Alcohol Consumption? Occasional Occasionally Information not available 04/03/2022 Do You Wear A Helmet When Biking? No No Bike Information not available 01/22/2015 What Is Your Level Of Caffeine Consumption? Moderate [email or web address] Information not available 06/26/2011 How Much Tobacco Do You Chew? None Information not available 01/22/2015 What Type Of Diet Are You Following? 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 6-10yearssinc elastcigarett e [email or web address] Information not available 06/05/2021 How Many Days In The Past Year Have You Had A Heavy Drinking Consumption (4+ Female, 5+ Male)? 3 Information not available 01/22/2015 Are There Any Guns Present In Your Home? No [email or web address] Information not available 06/26/2011 Live Alone Or With Others? Alone Information not available 06/26/2011 Patient Has Health Care Proxy Signed And In Chart No Evelin(sister ) [email or web address] Information not available 06/23/2018 CCM Consent Discussion 07/08/2021 [email or web address] Information not available 07/11/2021 Marital Status Single Information not available 06/26/2011 Mosquito Repellent Used Routinely Yes Information not available 06/26/2011 What Was The [...] available 06/26/2011 Smoke Alarm In Home Yes [email or web address] Information not available 06/26/2011 At What Age Did You Start Smoking Tobacco? 17 [email or web address] Information not available 06/26/2011 How Much Tobacco Do You Smoke? No Information not available 04/03/2022 What Types Of Sporting Activities Do You Participate In? No Information not available 01/22/2015 General Stress Level Medium [email or web address] Information not available 06/26/2011 Do You Use Any Illicit Or Recreational Drugs? No Information not available 05/05/2024 Do You Use Sunscreen Routinely? Yes Information not available 06/26/2011 How Many Years Have You Smoked Tobacco? 41 [email or web address] Information not available 06/05/2021 Do You Or [...] Td(adult) unspecified formulation 6 completed Not Available [facility] 09/26/2023 00:24:31 influenza, unspecified formulation 7 completed Not Available [facility] 09/26/2023 00:24:31 Influenza, split virus, trivalent, preservative 2 completed Not Available [facility] 08/27/2019 02:32:24 Tdap 3 completed Not Available [facility] 08/27/2019 02:28:48 Novel [id number] 9 completed Not Available [facility] 08/27/2019 02:27:45 Influenza, split virus, trivalent, PF 3 completed Not Available [facility] 08/27/2019 02:18:58 Influenza, split virus, quadrivalent, PF 5 completed Not Available [facility] 08/27/2019 02:19:46 zoster live 5 completed Not Available [facility] 08/27/2019 02:19:45 influenza, unspecified formulation 6 completed Not Available [facility] 09/26/2023 00:24:31 influenza, unspecified formulation 7 completed Not Available [facility] 09/26/2023 00:24:31 Influenza, high-dose, quadrivalent, PF 0 completed Janee Bai LPN null, [facility] 05/28/2020 08:46:57 pneumococcal polysaccharide PPV23 0 completed BLANCA DOYLE NP [address] [place] [address], [address], [facility] 06/20/2020 15:02:02 Influenza, split virus, trivalent, preservative 0 completed Not Available [facility] 08/27/2019 02:17:47 COVID-19, mRNA, LNP-S, PF, 30 mcg/0.3 mL dose 1 completed Not Available [facility] 09/26/2023 00:24:30 COVID-19, mRNA, LNP-S, PF, 30 mcg/0.3 mL dose 1 completed Not Available [facility] 09/26/2023 00:24:30 Td (adult), 2 Lf tetanus toxoid, preservative free, adsorbed 3 completed CATHERINE Garza [address] [place] [address], [address], [facility] 01/02/2023 07:56:47 Influenza, high-dose, quadrivalent, PF 1 completed Not Available [facility] 09/26/2023 00:24:30 COVID-19, mRNA, LNP-S, PF, 30 mcg/0.3 mL dose 1 completed Not Available [facility] 09/26/2023 00:24:31 COVID-19, mRNA, LNP-S, PF, 30 mcg/0.3 mL dose 2 completed Not Available [facility] 09/26/2023 00:24:31 zoster recombinant 2 completed Not Available [facility] 09/26/2023 00:24:30 Influenza, split virus, quadrivalent, preservative 2 completed Not Available [facility] 09/26/2023 00:24:30 Past Encounters Encounter ID Performer Location Encounter Start Date Encounter Closed Date Diagnosis/Indication Diagnosis SNOMED-CT Code Diagnosis ICD10 Code Diagnosis Note [id number] [facility], OFFICE [address] [place] [address] 10/06/2002 15:52:18 08/30/2008 02:02:29 [id number] Radiology , [address] [address] 10/06/2002 00:00:00 08/30/2008 02:02:29 [id number] Radiology , [address] [address] 10/06/2002 16:36:55 08/30/2008 02:02:29 [id number] LAB - [address] [address] 10/07/2002 15:46:52 08/30/2008 02:02:29 [id number] LAB - [address] [address] 11/08/2002 16:26:26 08/30/2008 02:02:29 [id number] [facility], OFFICE [address] [place] [address] 11/08/2002 15:17:41 08/30/2008 02:02:29 [id number] , [facility], OFFICE [address] [facility] [address] 12/08/2002 15:25:39 08/30/2008 02:02:29 [id number] LAB - [facility] [address] [facility] [place] [address] 12/08/2002 15:51:11 08/30/2008 02:02:29 [id number] Radiology , [address] [place] [address] 12/20/2002 14:48:00 08/30/2008 02:02:29 [id number] Radiology , [address] [place] [address] 12/20/2002 00:00:00 08/30/2008 02:02:29 [id number] , [facility], OFFICE [address] [place] [address] 03/06/2003 10:13:04 08/30/2008 02:02:29 [id number] , [facility], OFFICE [address] [place] [address] 11/22/2003 12:59:27 11/22/2003 14:55:43 [id number] Radiology , [address] [address] 12/26/2003 15:20:58 08/30/2008 02:02:29 [id number] Radiology , [facility] [address] [place] [address] 12/26/2003 00:00:00 08/30/2008 02:02:29 [id number] [facility], OFFICE [address] [place] [address] 01/19/2004 14:11:55 01/19/2004 15:54:03 [id number] [facility], [address] [place] [address] 03/27/2004 10:47:20 03/28/2004 09:21:52 [id number] LAB - [address] [address] 10/15/2004 14:29:29 10/15/2004 14:29:57 [id number] , [facility], OFFICE [address] [place] [address] 12/11/2004 15:06:41 12/11/2004 17:50:16 [id number] Radiology , [facility] [place] [place] [address] 12/11/2004 16:00:54 12/12/2004 08:22:27 [id number] Radiology , [facility] [place] [address] 12/11/2004 00:00:00 08/30/2008 02:02:29 [id number] Radiology , [facility] An[address]isa [facility] QASIM Villalobos[address] 01/02/2005 14:50:32 08/30/2008 02:02:29 [id number] Radiology , [facility] Annalisa [facility] [place] [address] 01/02/2005 00:00:00 08/30/2008 02:02:29 [id number] FP [facility], OFFICE [address] [place] [address] 05/13/2005 14:40:24 08/30/2008 02:02:29 [id number] Radiology , [address] [place] [address] 05/13/2005 15:36:22 08/30/2008 02:02:29 [id number] Radiology , [address] [place] [address] 05/13/2005 00:00:00 08/30/2008 02:02:29 [id number] Physical Therapy, [address] [place] [address] 05/26/2005 12:56:12 08/30/2008 02:02:29 [id number] Physical Therapy, [address] [place] [address] 6 06/11/2005 15:17:06 08/30/2008 02:02:29 [id number] FP [facility], OFFICE [address] [place] [address] 6 12/24/2005 15:41:01 12/25/2005 08:44:40 [id number] [facility] [address] 6 12/24/2005 15:41:01 12/25/2005 08:44:40 [id number] Radiology , [address] [place] [address] 01/15/2006 14:31:58 01/16/2006 09:26:07 [id number] Radiology , [address] [place] [address] 6 01/15/2006 00:00:00 08/30/2008 02:02:29 [id number] FP, [facility], OFFICE [address] [facility] [place] [address] 6 04/22/2006 15:44:51 04/23/2006 08:28:48 [id number] LAB - [facility] 70 [facility] [place] [address] 6 04/22/2006 16:15:54 04/22/2006 16:16:11 [id number] , [facility], OFFICE 70 [place] [address] 6 04/30/2006 15:02:17 05/01/2006 08:35:41 [id number] Radiology , [facility] 70 [place] [address] 6 05/31/2007 14:16:16 06/01/2007 09:45:04 [id number] Radiology , [facility] 70 [place] [address] 6 05/31/2007 00:00:00 08/30/2008 02:02:29 [id number] , [facility], OFFICE [address] [place] [address] 6 06/01/2007 15:54:13 08/30/2008 02:02:29 [id number] , [facility], OFFICE [address] [place] [address] 6 07/06/2007 15:59:53 08/30/2008 02:02:29 [id number] Radiology , [facility] 70 [place] [address] 6 07/06/2007 15:26:24 07/07/2007 09:44:25 [id number] Radiology , [address] [address] 6 07/06/2007 00:00:00 08/30/2008 02:02:29 [id number] Radiology , [facility] 70 [place] [address] 6 07/06/2007 17:40:10 07/07/2007 09:44:33 [id number] Radiology , [facility] 70 [place] [address] 6 07/06/2007 00:00:00 08/30/2008 02:02:29 [id number] FP, [facility], OFFICE [address] [place] [address] 6 12/20/2007 09:22:27 08/30/2008 02:02:29 [id number] LAB - [facility] 70 [facility] [place] [address] 6 12/20/2007 09:59:25 12/20/2007 09:59:40 [id number] Radiology , [facility] 70 [place] [address] 06/24/2008 11:14:13 06/26/2008 09:15:42 [id number] LAB - [facility] [address] [facility] [place] [address] 6 07/24/2008 12:24:22 07/24/2008 12:24:31 [id number] FP, [facility], OFFICE 70 [facility] [address] 6 07/24/2008 11:11:08 08/30/2008 02:02:29 [id number] Radiology , [facility] 70 [place] [address] 6 07/30/2009 12:03:57 07/31/2009 14:41:39 [id number] FP, [facility], OFFICE [address] [place] [address] 6 07/30/2009 12:53:39 08/01/2009 09:41:41 [id number] FP, [facility], OFFICE [address] [place] [address] 6 09/03/2009 10:36:11 09/05/2009 09:01:25 [id number] FP, [facility], OFFICE [address] [place] [address] 6 02/18/2010 16:06:54 02/21/2010 11:14:25 [id number] FP, [facility], OFFICE [address] [place] [address] 6 03/04/2010 10:51:19 03/05/2010 09:13:07 [id number] FP, [facility], OFFICE [address] [place] [address] 6 04/08/2010 10:49:52 04/10/2010 12:33:40 [id number] FP, [facility], OFFICE [address] [place] [address] 6 05/06/2010 11:06:59 05/09/2010 08:14:35 [id number] FP, [facility], OFFICE [address] [place] [address] 6 09/04/2010 10:12:54 09/09/2010 09:54:47 [id number] Radiology , [facility] 70 [place] [address] 6 09/04/2010 11:35:48 09/05/2010 13:47:30 [id number] FP, [facility], OFFICE [address] [facility] [place] [address] 02/17/2011 15:12:45 02/17/2011 16:18:23 [id number] FP, [facility], OFFICE [address] [place] [address] 6 03/03/2011 11:25:18 03/03/2011 12:35:48 [id number] FP, [facility], OFFICE [address] [place] [address] 6 05/05/2011 11:10:16 05/05/2011 12:18:53 [id number] FP, [facility], OFFICE [address] [place] [address] 6 06/16/2011 11:24:27 06/16/2011 12:27:11 [id number] FP, C, OFFICE [address] [place] [address] 6 09/12/2011 11:49:49 09/12/2011 12:53:46 [id number] FP, C, OFFICE [address] [place] [address] 6 09/15/2011 10:11:06 09/15/2011 11:20:27 [id number] Radiology , C [address] [place] [address] 6 09/15/2011 11:18:59 09/22/2011 11:25:46 [id number] Radiology , C [address] [place] [place] [address] 6 09/15/2011 11:22:42 09/22/2011 11:26:39 [id number] Radiology , C [address] [place] [address] 6 09/15/2011 13:02:14 09/22/2011 11:27:06 [id number] FP, [facility], OFFICE [address] [place] [facility] [place] [address] 6 09/19/2011 16:05:15 09/19/2011 17:14:17 [id number] FP, [facility], OFFICE [address] [facility] [place] [address] 6 10/16/2011 11:04:47 10/16/2011 12:36:29 [id number] , [facility], OFFICE [address] [place] [address] 6 10/23/2011 10:47:33 10/23/2011 11:31:44 [id number] , C, OFFICE [address] [place] [place] [address] 6 10/28/2011 10:53:53 10/28/2011 11:41:32 [id number] , [facility], OFFICE [address] [facility] [facility] [place] [address] 6 11/10/2011 11:00:59 11/10/2011 12:05:22 [id number] , [facility], OFFICE [address] [place] [address] 6 12/22/2011 11:30:06 12/22/2011 12:11:38 [id number] Balbir Cruz MD Radiology , [facility] [address] [facility] [facility] [address] 05/03/2012 11:01:39 05/04/2012 10:48:40 [id number] Yeny Elizabeth NP , [facility], OFFICE [address] [facility] [facility] [place] [address] 6 05/11/2012 11:43:11 05/11/2012 12:45:41 [id number] Stephy Mccloud CMA FP, [facility], OFFICE [address] [facility] [place] [address] 6 05/13/2012 06:44:42 05/13/2012 16:24:11 [id number] Stacy Echeverria , [facility], OFFICE [address] [place] [address] 10/11/2012 14:33:17 10/11/2012 17:18:16 [id number] Antonio Urbano MD Radiology , [facility] [address] [place] [facility] [address] 6 10/18/2012 11:02:02 10/19/2012 10:11:53 [id number] Yeny Elizabeth NP FP, C, OFFICE [address] [place] [place] [address] 6 11/29/2012 11:09:20 11/29/2012 12:09:21 [id number] Zoila Cooper , [facility], OFFICE [address] [place] [address] 6 12/27/2012 11:13:39 12/27/2012 12:12:31 [id number] ANITRA Guidry, [facility], OFFICE [address] [place] [address] 6 01/24/2013 10:58:06 01/24/2013 11:59:15 [id number] Jovita Cooper MA , [facility], OFFICE [address] [place] [address] 6 05/02/2013 10:58:25 05/02/2013 12:23:22 Acute bronchitis 51779697 Joint pain 13580634 Influenza vaccine needed [id number] 131 [id number] Yeny Elizabeth NP , [facility], OFFICE [address] [place] [address] 6 12/26/2013 15:36:32 12/26/2013 16:51:55 Adult health examination 236923670 see Risk Assessment and Lifestyle Change Counseling section above Allergic rhinitis 04405527 Backache 996783863 Sinusitis 24862049 Screening for malignant neoplasm of cervix 001151095 Thyroid nodule 502753289 [id number] Yeny Elizabeth NP , [facility], OFFICE [address] [place] [address] 6 01/22/2015 13:40:10 01/22/2015 14:50:12 Adult health examination 153171749 see Risk Assessment and Lifestyle Change Counseling section above Benign ess ential hypertension 1859735 Blood pressure at goal Backache 979630092 Major depr ession, melancholic type 541701374 Gastroesop hageal reflux disease 907916844 Sleep apnea 41205005 [id number] Nimo HICKMAN, [facility], OFFICE [address] [place] [address] 6 04/10/2015 11:01:34 04/10/2015 12:19:45 Lifestyle 042434724 Benign ess ential hypertension 1480766 Blood pressure at goal Backache 594821311 Varicella vaccination 96876756 Influenza vaccine needed 0472823701 [id number] VICK, [facility], OFFICE [address] [place] [address] 6 04/27/2015 11:53:26 04/27/2015 12:51:23 Backache 802333753 Benign ess ential hypertension 6615819 Blood pressure at goal Will be getting another 24hr monitor by nephsarika cheng due to labile BP, difficult to control [id number] Rhianna Pabon LPN FP, [facility], OFFICE [address] [place] [address] 6 06/04/2015 11:08:23 06/04/2015 14:55:19 Tuberculosis screening 263778679 Z11.1 [id number] Rhianna Pabon LPN FP, C, OFFICE [address] [place] [address] 6 06/18/2015 11:15:27 06/18/2015 13:05:30 Tuberculosis screening 699465608 Z11.1 [id number] ANITRA Guidry, C, OFFICE [address] [place] [address] 6 07/26/2015 11:30:59 07/26/2015 12:23:47 Benign essential hypertension 6366950 I10 Blood pressure NOT at goal. [id number] ANITRA Guidry, [facility], OFFICE [address] [place] [address] 6 01/25/2016 15:49:01 01/29/2016 10:59:33 Adult health examination 638301326 Z00.00 see Risk Assessment and Lifestyle Change Counseling section above Benign ess ential hypertension 3071748 I10 Blood pressure NOT at goal. Mixed hyperlipidemia 267 805238 E78.2 [id number] Yeny Elizabeth NP FP, C, OFFICE [address] [place] [address] 6 02/29/2016 09:37:18 02/29/2016 10:27:55 Hand pain 24304357 M79.642 Benign ess ential hypertension 0470700 I10 Blood pressure NOT at goal. [id number] ANITRA Guidry, C, OFFICE [address] [place] [address] 6 07/28/2016 14:23:55 07/28/2016 15:14:02 Benign essential hypertension 0053448 I10 Blood pressure NOT at goal despite 3 agents. Can't tolerate spironolac tone. Mixed hyperlipidemia 267 466034 E78.2 Acute uppe r respiratory infection 98373391 J06.9 [id number] Yeny Elizabeth NP FP, [facility], OFFICE [address] [place] [address] 6 01/26/2017 15:38:43 01/26/2017 17:01:04 Adult health examination 347349677 Z00.00 see Risk Assessment and Lifestyle Change Counseling section above Benign ess ential hypertension 2027432 I10 Blood pressure at goal. Backache 089393931 M54.9 [id number] Yeny Elizabeth NP , [facility], OFFICE [address] [place] [address] 6 05/19/2017 15:23:45 05/19/2017 16:05:28 Cough 69313545 R05 Benign ess ential hypertension 9982006 I10 Blood pressure not at goal. [id number] Yeny Elizabeth NP , [facility], OFFICE [address] [place] [address] 6 06/26/2017 07:49:26 06/26/2017 08:38:01 Benign essential hypertension 4594951 I10 Blood pressure at goal [id number] MD VICK Cardenas, [facility], OFFICE [address] [place] [address] 6 02/16/2018 15:32:13 02/16/2018 16:54:41 Adult health examination 136304311 Z00.00 see Risk Assessment and Lifestyle Change Counseling section above Depression screening 171 554910 Z13.89 depression screening tool administer ed, entered into emr, scored and discussed, time greater than 7.5 minutes Benign ess ential hypertension 5184109 I10 Blood pressure at goal Cough 90445720 R05 Using ProAir occasional ly Screening for malignant neoplasm of colon 856467319 Z12.11 Referral for a DIRECT booked colonoscop y. This patient is a healthy ASA Class 1 or 2 patient (only mild systemic disease), or a STABLE, well controlled insulin dependent diabetic. They do not have serious cardiac disease ie PA/angiopl asty within 1 year, symptomati c CHF; renal failure with CKD 4 or 5; take Coumadin, Plavix, Aggrenox, etc. Sleep apnea 34929582 G47 .30 Please get back to me with name of Cpap provider, will update orders so you can use it again. Impaired f asting glycemia 095292122 R73.01 Blood sugar today 84, continue to monitor [id number] Walter López MD FP, [facility], OFFICE [address] [place] [address] 6 09/14/2018 17:17:47 09/16/2018 11:01:46 Mixed hyperlipidemia 136997811 E78.2 Benign ess ential hypertension 2939437 I10 Blood pressure at goal Cough 98998144 R05 Using ProAir occasional ly Backache 680821125 M54.9 Wheezing 91058717 R06.2 Normal grief reaction 27 1268441 F43.20 [id number] Boo Christine MD FP, [facility], OFFICE [address] [place] [address] 6 10/05/2018 15:20:09 10/05/2018 16:27:59 Benign essential hypertension 4996191 I10 Thyroid nodule 412059263 E04.1 Cough 21244040 R05 [id number] Walter López MD FP, [facility], OFFICE [address] [place] [address] 6 11/02/2018 16:39:52 11/03/2018 09:00:16 Benign essential hypertension 0669920 I10 [id number] Rupinder Eagle DNP, [employer] FP, [facility], OFFICE [address] [place] [address] 6 11/25/2019 13:48:50 11/28/2019 14:47:15 Urinary tract infectious disease 58280262 N39.0 Patient instructed to push fluids, to follow up for persistent or worsening symptoms or fever or back pain.Treat for presumptiv e infection w/ bactrim.Co nsider musculoske latal vs stone. If no improvemen t will need imaging and cultures. [id number] Yeny Elizabeth NP FP, [facility], OFFICE [address] [place] [address] 6 11/30/2019 15:08:40 12/02/2019 13:07:04 Low back pain 239944426 M54.5 Nausea 871095899 R11.0 Night sweats 68697238 R6 1 [id number] Rhianna Murray LPN , [facility], OFFICE [address] [place] [address] 6 05/25/2020 16:15:13 05/28/2020 13:23:56 Active or passive immunization 381453807 Z23 [id number] Lynda Stewart PA-C , [facility], OFFICE [address] [place] [address] 6 06/20/2020 09:51:52 06/22/2020 12:18:11 Abdominal pain 27903569 R10.9 New concern, unclear if all symptoms related to same cause, ? cystitis and/or kidney stones given lower abdominal pain with radiation to groin with back pain, POCT urine with trace leuks only, plan to send for culture. Mass palpated in periumbili laney area ? hernia, plan to obtain CT of abdomen and pelvis to further assess all concerns. Screening mammography 24 628988 Z12.31 Routine screening due, patient agreeable, would like to schedule with G, aware of wait time. Active or passive immunization 360946618 Z23 Depression screening 171 275725 Z13.31 - depression screening tool administer ed, entered into emr, scored and discussed, time greater than 7.5 minutes-Co ntinue sertraline [id number] Yeny Elizabeth NP , [facility], OFFICE [address] [place] [address] 6 07/03/2020 15:32:37 07/04/2020 18:49:34 Essential hypertension 81757179 I10 Major depr ession, melancholic type 334476665 F32.9 Multiple n odules of lung 140185483 R91.8 Liver mass 952535010 R16 .0 [id number] Boo Christine MD , [facility], OFFICE [address] [place] [address] 6 08/21/2020 11:04:42 08/21/2020 14:03:59 Essential hypertension 26284097 I10 Vitamin D deficiency 347 28962 E55.9 Thyroid nodule 304122087 E04.1 Multiple n odules of lung 512930924 R91.8 diffuse, bilateral Tremor 05682060 R25.1 L hand 4th & 5th fingers. [id number] , [facility], OFFICE [address] [place] [address] 10/23/2020 09:00:28 10/24/2020 16:08:20 Essential hypertension 23882403 I10 Mixed hyperlipidemia 267 589052 E78.2 Major depr ession, melancholic type 866069726 F32.9 sertraline 200mg daily. Multiple n odules of lung 857696014 R91.8 diffuse, bilateral Vitamin D deficiency 347 29650 E55.9 [id number] Yeny Elizabeth NP , [facility], OFFICE [address] [place] [address] 12/06/2020 11:27:07 12/07/2020 09:46:33 Essential hypertension 20826002 I10 Mixed hyperlipidemia 267 287218 E78.2 Chronic ob structive pulmonary disease 65707437 J44.9 Adult heal th examination 256826395 Z00.00 see Risk Assessment and Lifestyle Change Counseling section above Counseling 758683444 Z71 .9 including cardiovasc ular risk reduction counseling Depression screening 171 243579 Z13.31 depression screening tool administer ed, entered into emr, scored and discussed, time greater than 7.5 minutes. Screening reviewed with pt. treated for depression with sertraline . Screening for alcohol abuse 516451655 Z13.39 [id number] Everardo Vazquez MD Endocrino logy, [facility] [address] [place] [address] 12/20/2020 15:28:49 12/21/2020 06:31:01 Thyroid nodule 213336102 E04.1 Right nodule. Cytology from [facility] reports benign . This typically would apply [...] genetic analysis. Multiple n odules of lung 202879942 R91.8 Adds to complexity . Concern about whether we can definitive ly link lung nodules to a known primary. Chronic ob structive pulmonary disease 22383589 J44.9 Clinically . Recent PFTs (08/30) c/w emphysema or interstiti al lung disease. Vitamin D deficiency 347 87982 E55.9 Level of 13 (07/29). Given 50K weekly x 1 month. No f/u orders placed. [id number] Everardo Vazquez MD Endocrino logy, [address] [address] 12/27/2020 12:55:55 12/28/2020 06:32:34 [id number] Everardo Vazquez MD Endocrino logy, [facility] [address] [place] [address] 01/03/2021 14:30:30 01/08/2021 13:15:42 Thyroid nodule 455827975 E04.1 Right nodule. Cytology: Erie IV: Suspicious for Follicular Neoplasm. Genomic sequencing house manager pending. Also expression atlas pending. Reviewed ramificati ons of suspicious for follicular neoplasm: [place] CATEGORIES AND ESTIMATED RISK Benign ? .......... .......... .......0-3 %......... .. Clinical follow-up Follicular Neoplasm or Suspicious for a Follicular Neoplasm ? ? .......... .......... ..15-30%.. ..... Surgical lobectomy Reviewed issues: - Risks/bene fits [...] these options are consistent with cytology from [facility] which reported results as benign . While thyroid CA can metastasiz e to lung, one would typically expect to see adenopathy . She has not had significan t apparent adenopathy on exam. Have discussed case with Pulmonary. Genetic sequencing and expression atlas pending. Multiple n odules of lung 926604337 R91.8 Adds to complexity . Concern about whether we can definitive ly link lung nodules to a known primary. Chronic ob structive pulmonary disease 49502962 J44.9 Clinically . Recent PFTs (08/30) c/w emphysema or interstiti al lung disease. Vitamin D deficiency 347 82225 E55.9 Level of 13 (07/29). Given 50K weekly x 1 month. No f/u orders placed. 12/28: suggest get vit D level checked. [id number] Yeny Elizabeth NP , [facility], OFFICE [address] [place] [address] 06/05/2021 10:44:10 06/05/2021 11:39:08 Essential hypertension 08510563 I10 Chronic ob structive pulmonary disease 63027876 J44.9 Cigarette smoker 6355688 7 F17.210 Tobacco user 399934248 Z 72.0 Screening for osteoporosis 435774489 Z13.820 Low back pain 084514208 M54.50 Multiple n odules of lung 584032736 R91.8 diffuse, bilateral Thyroid nodule 771107348 E04.1 Benign ess ential hypertension 1135432 I10 [id number] Lynda Stewart PA-C , [facility], OFFICE [address] [place] [address] 07/08/2021 11:51:46 07/16/2021 09:19:52 Spasm 92933076 R25.2 describes muscle jerking like spasmrecen t thyroidect yeni, r/o parathyroi d injury - check Cacheck magnesiumi f all normal, she wants to talk to dr. Vazquez at upcoming appt and ask if he thinks this is related somehow to her thyroid. I advised her to let me know if he states it isn't. 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 Should have TSH/free T4 checked (per d/c summary) and see Dr. Vazquez as scheduled. She will have labs today. [id number] Everardo Vazquez MD Endocrino log, [address] [address] 07/18/2021 11:18:55 07/26/2021 06:28:00 Multiple nodules of lung 001417259 R91.8 Adds to complexity . Concern about whether we can definitive ly link lung nodules to a known primary. Chronic ob structive pulmonary disease 12438950 J44.9 Clinically . Recent PFTs (08/30) c/w emphysema or interstiti al lung disease.Di scussed this in relation to smoking and reasons to quit. Vitamin D deficiency 347 31714 E55.9 D= 36.4 (06/30); was 33 (01/28); was 13 (07/29). Had 50K weekly x 1 month.Take s 1-2 daily supplement (07/30). Cigarette smoker 6774069 7 F17.210 Since no clear evidence of metastatic disease, discussed risks/harm s of smoking. Tobacco user 850287998 Z 72.0 Sweating 896963880 R61 Some diarrhea afterwards . Check catechols and also 5hiaa. 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 Not on repalcemen t. check TFTs. [id number] GLENROY MARTI MD , [facility], OFFICE [address] [place] [address] 6 10/31/2021 13:22:38 11/11/2021 09:15:16 Pre-surgery evaluation 899641284 Z01.818 Summary: has low rahel-opera tive risk [...] prophylaxi s as per surgical protocol Backache 864946032 M54.9 rare use of tramadol - refill sent [id number] GLENROY MARTI MD , [facility], OFFICE [address] [place] [address] 12/23/2021 13:29:28 12/23/2021 14:49:50 Adult health examination 762266205 Z00.00 See risk assessment portion of HPI Counseling 832244011 Z71 .9 including cardiovasc ular risk reduction counseling Cardiovasc ular risk reduction was discussed including benefits and risks of aspirin, exercise goals, healthy eating and healthy weight . Discussion greater than 7.5 minutes. Depression screening 171 886935 Z13.31 depression screening tool administer ed, entered into emr, scored and discussed, time greater than 7.5 minutes Screening for alcohol abuse 014932953 Z13.39 An audit alcohol screening test was performed and scored. Patient was asked about alcohol use, advised about risks of alcohol, and personal risk was assessed, patient agreed to plan and given informatio n about available resources if needed. Discussion including screening and scoring less than 7.5 minutes Mixed hyperlipidemia 267 932607 E78.2 Cholestero l is at goal. LDL 65Continue to work on diet and exercise as discussed Essential hypertension 96069944 I10 Controlled . Continue current regimen. Pain in ri ght hip joint 2725068824 78752 M25.551 xrays r/o DJDES Tylenolhad been told not to take NSAIDs due to hypertensi on. Used to prefer Aleve. If pain is not controlled with Tylenol, will try Aleve (or prescripti on naproxen 500 mg) as needed - let me know. Major depr ession, melancholic type 721181766 F33.1 continue sertraline , follow up with therapist. Has been sensitive to other meds so would prefer to stay on same dose. I need a schedule, I need someplace to go. No thoughts of harming herself. Screening mammography 24 932177 Z12.31 Chronic ob structive pulmonary disease 99713333 J44.9 breathing OK - smoking 1 pk/weekCT showed Upper lobe predominan t centrilobu lar emphysema in 01/25/21 at [facility].uses Breo every other day or every 3 days. Legs get stiff when she uses this daily.No glaucoma Mass of axilla 766072261 R22.2 felt last but none now. ?lymph nodeNothin g palpable todayUS ordered [id number] Everardo Vazquez MD Endocrino logy, [facility] [address] [place] [address] 04/03/2022 09:31:23 04/03/2022 13:42:46 Sweating 770971875 R61 Has c/o diarrhea and intermitte nt sweats. Had normal catechols. 5hiaa was slightly high (issues with urine pH collection ). Not high enough to be suspicious for carcinoid. If sx persist, may need to repeat. Multiple n odules of lung 957927008 R91.8 Adds to complexity . Concern about whether we can definitive ly link lung nodules to a known primary. Chronic ob structive pulmonary disease 26832412 J44.9 Clinically . Recent PFTs (08/30) c/w emphysema or interstiti al lung disease.Di scussed this in relation to smoking and reasons to quit. Vitamin D deficiency 347 03205 E55.9 D= 47.5 (03/31); was 36.4 (06/30); was 33 (01/28); was 13 (07/29). Was taking 1-2 daily supplement but lately more prn. Cigarette smoker 9958374 7 F17.210 Since no clear evidence of metastatic disease, discussed risks/harm s of smoking. 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 Not on replacemen t. Check TFTs. [id number] CATHERINE Garza , [facility], [address] [place] [address] 05/16/2022 14:08:49 05/16/2022 14:58:54 Tobacco user [id number] Z72.0 not discussed today, will discuss at f/usmocable occasional ly per chart review Active or passive immunization 098458561 Z23 pt already had flu vaccinerem inded about shingles vaccine Pain in right hand 25201 35268 89267 M79.641 s/p fall 2 weeks agorepeat hand/wrist xrays given recurrent edema and painok to continue compressio n brace, rest, ice in the interim Pleuritic pain 9460143 R 07.81 new as of last nightreass uring examencour aged to continue monitoring and call with any changes/wo rsening Pain in ri ght hip joint [id number] 51544 M25.551 May xray reviewed - moderate degenerati ve changesPT and ortho referrals sentcall as needed Bone density finding 385 680053 M85.80 results 03/2022 reviewed - low bone massFRAX score reviewed: 10 y risk major risk 11%, hip 3.3%discus sed tx options, for now will optimize vitamin D, calcium, and weight-godwin ring and muscle-str engthening repeat scan 2 years Urgent rosalino alan to urinate 92179778 R39.15 POC UA showing trace leuksnot enough urine for culture at appt, will have pt return for this Chronic ob structive pulmonary disease 66488822 J44.9 looking into new pulmonolog ist, has recs from Dr. Vazquez1x refill sent of Trelegy so she has it on hand in the interim Backache 572859035 M54.9 takes tramadol sparingly as needed for chronic back painlast fill 01/2022 per masspatwil l reassess at f/u [id number] CATHERINE Garza , [facility], [address] [facility] [place] [address] 01/01/2023 13:14:36 01/01/2023 14:31:56 Adult health examination 512444135 Z00.00 Depression screening 171 313420 Z13.31 depression screening tool administer ed. as below. Screening for alcohol abuse 466007180 Z13.39 Alcohol use screening tool administer ed. rec max 7 drinks/wee k. Essential hypertension 92541190 I10 consistent ly above goalincrea se nifedipine to 90mg daily (currently taking 60mg daily)f/u 1 month to reassess Mixed hyperlipidemia 267 765378 E78.2 Cholestero l is at goalContin ue to work on diet and exercise as discussed Screening mammography 24 296682 Z12.31 due Active or passive immunization 935630898 Z23 reminded about shingles vaccinetet anus vaccine will do Increased frequency of urination 206936726 R35.0 POC UA negative, unable to send for culture due to limited supplycall with any new/worsen ing symptoms Chronic ob structive pulmonary disease 71716322 J44.9 needs referral to new pulmonolog ist, she will get the name and let us know where she'd like to godoing well otherwise with current inhaler regimen Impaired f asting glycemia 736658297 R73.01 improving, recent A1C 5.2 Bone density finding 385 956178 M85.80 results 03/2022 reviewed - low bone massFRAX score reviewed: 10 y major risk 11%, hip 3.3%prefer s to continue to optimize vitamin D, calcium, and weight-godwin ring and muscle-str engthening repeat scan 2 years Major depr ession, melancholic type 464719903 F33.1 reports acute on chronic depression does virtual therapy which helpsalso continues on sertraline Tobacco user 397756368 Z 72.0 We discussed your smoking today for more than 3 minutes. Cigarette use is the leading cause of preventabl e disease, disability , and in the [place]. We talked about tools and medication s available to help you in smoking cessation. We discussed utilizing our smoking cessation executive coach and online resources. Your personal goal: to quit! Multiple n odules of lung 600327188 R91.8 per problem list/forme r PCP CE - non-cancer ous. followed by Dr. Leavitt . 09/04/21 note - surveillan ce is complete. pt interested in low dose CT screening to use as f/u as well, as above. Candidiasis of mouth 797 10391 B37.0 will treat with darian per patient preference continue good oral hygiene after inhaler usecall if not resolving History of subtotal thyroidectomy 378885290 Z90.09 original concern for metastatic CA as multiple lung nodules, PET lit up mass in thyroid, now s/p subtotal thyroidect yeni, not on medication , following with Dr. Vazquez regularly History of partial resection of colon 575365341 Z90.49 pre cancerous polyp removal 2008, gets colonoscop ies q5 years [id number] Jaimee Lowe RN BSN , [facility], [address] [place] [address] 05/18/2023 11:17:42 05/19/2023 14:44:12 [id number] JANEE SHIELDS MD , [facility], [address] [place] [address] 02/05/2024 13:40:32 02/05/2024 17:40:33 Cough 70297874 R05.9 Essential hypertension 00842632 I10 Has been elevated in the past so will monitor closely. Reduce nifedipine to 60 mg daily. Continue losartan and labetolol. Mixed hyperlipidemia 267 209632 E78.2 She would like to try discontinu ing the statin. Agreed this is fine but we should recheck her cholestero l in a month. Lightheadedness 22891729 8 R42 Mostly with standing. I think [...] the beta fidel. Unintentio nal weight loss 566656969 R63.4 Thinks this was due to breaking her teeth, sore teeth. Advised her to continue to use her protein shakes. Will check some labs as above. Will need to monitor. Chronic ob structive pulmonary disease 42344407 J44.9 Continue inhalers and follow up with pulm. Refilled albuterol - see below. Abnormal gait 64270465 R 26.9 She does have a stiff and tentative gait. Unclear whether this is due to deconditio luisito, her concerns about falling or something neurologic al. Will re-evaluat e at next visit. 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 Not on replacemen t.Update TFTs since having sx. Chronic ob structive pulmonary disease 63323288 J44.9 Clinically . Recent PFTs (08/30) c/w emphysema or interstiti al lung disease.Di scussed this in relation to smoking and reasons to quit. Cigarette smoker 4327284 7 F17.210 Since no clear evidence of metastatic disease, discussed risks/harm s of smoking. Tobacco user 971077476 Z 72.0 counseling . Thyroid fu nction tests abnormal 021462546 R94.6 Not controlled . TSH= 2.3 (03/02) was 1.32 (01/31) ft4= 0.71 (03/02); was 0.7 (07/02) She is having multiple sx that might be c/w insufficie nt thyroid. Low T4 in setting of normal TSH is not c/w primary abnormalit y. Suggests possibilit y of secondary (pituitary ) issue.[facility] k labs. Dizziness 506526986 R42 Not controlled Orthostati cs show now rise in HR with standing (drops systolic > 20 but not hypotensiv e).On labetalol- 150 bid (was 300 bid). decreased a year ago (?06/01?)c heck cortisol/a cth. If OK, may want to review use of labetalol vs. change to alternativ e. Osteopenia with high fracture risk 5089058833 33721 M85.80 BMD @ VMGL1-L4= -0.1 (05/01) .Femoral Neck= -1.9 (05/01)Left Total Hip= -1.5 (05/01)Risk s: thin, white, post-menop ausal and smoker. Has had wrist fx. Update with new baseline. [id number] Everardo Vazquez MD [facility]ocr[facility], [facility] [address] [place] [address] 06/23/2024 13:35:00 06/27/2024 06:21:22 Thyroid function tests abnormal 382584841 R94.6 Not controlled . TSH=4.12 (06/02) was [...] related to thyroid. 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 Not on replacemen t.Update TFTs since TSH is slowly rising (although still WNL). Dizziness 595299122 R42 Not controlled Orthostati cs showed rise in HR with standing (drops systolic > 20 but not hypotensiv e).On labetalol- 150 bid (was 300 bid). decreased a year ago (?06/01?) Checked cortisol/a cth and those were OKMay want to review use of labetalol vs. change to alternativ e. Osteopenia with high fracture risk 5471016205 63743 M85.80 BMD @ VMGL1-L4= -0.1 (05/01) .Femoral Neck= -1.9 (05/01)Left Total Hip= -1.5 (05/01)Risk s: thin, white, post-menop ausal and smoker. Has had wrist fx. Recommend: - Update with new baseline in future.- Talk to PCP about physical therapy focus on exercises that don't make dizziness worse. Chronic ob structive pulmonary disease 05859452 J44.9 Clinically . Recent PFTs (08/30) c/w emphysema or interstiti al lung disease.Di scussed this in relation to smoking and reasons to quit. Cigarette smoker 6061817 7 F17.210 Since no clear evidence of metastatic disease, discussed risks/harm s of smoking. Tobacco user 167071108 Z 72.0 counseling . Health Concerns Section Related Observation LastModified by Organization Detai ls LastModified Time None Recorded Concern Status LastModified by Organization Details LastModified Time None Recorded Advance Directives Directive None Recorded Payers Encounter Date Sequence Insurance Name Policy Number Policy Coppola Covered Member ID Coppola Member ID Guarantor Name 01/01/2023 2 [facility] (MEDICARE SUPPLEMENT) Linda Dinan [id number] Linda Dinan 01/01/2023 1 [facility] (MEDICARE REPLACEMENT/A DVANTAGE - PPO) [id number] Linda A Dinan [id number] Linda Dinan 05/18/2023 2 [facility] (MEDICARE SUPPLEMENT) Linda Dinan [id number] Linda Dinan 05/18/2023 1 [facility] (MEDICARE REPLACEMENT/A DVANTAGE - PPO) [id number] Linda A Dinan [id number] Linda Dinan 02/05/2024 1 [facility] (MEDICARE REPLACEMENT/A DVANTAGE - PPO) [id number] Linad A Dinan [id number] Linda Dinan 05/05/2024 1 [facility] (MEDICARE REPLACEMENT/A DVANTAGE - HMO) [id number] Linda A Dinan [id number] Linda Dinan 06/23/2024 1 [facility] (MEDICARE REPLACEMENT/A DVANTAGE - PPO) [id number] Linda A Dinan [id number] Linda Dinan Notes Date Note Type Note Provider Name [...] Risk Assesment:Family History of Coronary Artery Disease(father PA age 62);Does not participate in regular exercise [...] pressure; Has been difficult to control. Sees [facility]. On 3 agents. 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 Has COPD - sees pulm, uses a daily inhaler and albuterol prn JANEE SHIELDS MD [address] [place], [address], [facility] 02/05/2024 16:07:07 4 text/html ThyroidReported bypatient.Previous Evaluation:TSH: [...] or evaluation until current issues came up.a/vmg-smoking [id number] bypatient.ImportanceOn a scale of 1-10 with 1 [...] better (but still high). 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 [...] suspicious. Had lobectomy (07/30) Bx done through [facility] Radiology: 2.2x1.7x2.9 (5 passes)- reported as benign [...] compared to July 2020. Everardo Vazquez MD [address] [place] [address], [phone], [facility] 05/05/2024 12:57:58 4 text/html ThyroidReported bypatient.Previous Evaluation:Previous biopsy cytology ([place] IV: Suspicious for follicular neoplasm. Genomic sequencing [...] . GI:no constipation; no diarrhea; Had 5HIAA- 08/31- hr=7.2 (ref < 6)but [...] or evaluation until current issues came up.a/vmg-smoking [id number] bypatient.ImportanceOn a scale of 1-10 with 1 [...] better (but still high). F/U prn.PULM: Parveen ([place]) Follow-Up: thyroid noduleVMG Tobacco / Vaping Use epLV on 05/03LAst labs on 06/02Last Thyroid US on 1PT had a Ranjith-thyroidectomy in [place] bone density 2021 at [facility] ordered by PCPNO Labs cuedSmoking only occasionallyPT [...] balance. 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 [...] suspicious. Had lobectomy (07/30) Bx done through [facility] Radiology: 2.2x1.7x2.9 (5 passes)- reported as benign biopsy. No detailed description seen in report.07/30: Thyroid surgery- path was OK.Per [facility] note: [...] compared to July 2020. Everardo Vazquez MD [address] [place] [address], [phone], [facility] 06/26/2024 18:32:05 OBGyn Episode No OBEpisode recorded.
== END 2024-10-05 12:36 | disposition home or self-care (01) ==
PROVIDERS: PCP Nurse Practitioner Family; Visit Provider Nurse Practitioner Family
DX: R42 Dizziness and giddiness (principal); R91.8 Other nonspecific abnormal finding of lung field; F17.210 Nicotine dependence, cigarettes, uncomplicated; I25.10 Atherosclerotic heart disease of native coronary artery without angina pectoris; R29.6 Repeated falls; I10 Essential (primary) hypertension; H61.23 Impacted cerumen, bilateral

== ENCOUNTER → 2024-10-05 11:11 | Outpatient (BNVA) | payer OTHER, SELFPAY | PROVIDERS: PCP Nurse Practitioner Family; Visit Provider Nurse Practitioner Family | DX: H61.23 Impacted cerumen, bilateral (principal); R91.8 Other nonspecific abnormal finding of lung field; I25.10 Atherosclerotic heart disease of native coronary artery without angina pectoris; R42 Dizziness and giddiness; R29.6 Repeated falls; I10 Essential (primary) hypertension; F17.210 Nicotine dependence, cigarettes, uncomplicated | CPT/HCPCS: 69209; 99212 ==

== ENCOUNTER 2024-10-19 11:24 | Outpatient (AMB) | payer MEDICARE, SELFPAY ==
--- NOTE | 2024-10-19 11:29 | AM.OFFVISMDC ---
Intake Vital Signs 10/19/24 11:42 Height 5 ft 3 in Weight 111 lb 8 oz BMI 19.7 BP 110/70 Blood Pressure Location Rt brachial Position Sitting Respiration 12 Pulse 55 Pulse Source Pulse Oximeter Temp 97.2 F Temp Source Oral Pulse Oximetry (%) 95 Oxygen Delivery Method Room Air Intake Visit Reasons: 2 weeks 30 min fu med taper/bradycardia Intake Note: Awv, patient is also wondering how to get handicapped plates do to having imbalance.Patient states last pcp recommended a lung screening Land Management Supervisor Required: No Allergies Penicillins [PENICILLINS] Allergy (Unknown, Verified 10/19/24 12:06) ITCHING Medication List - Last Reconciled 10/19/24 by Rosa M Mason, [facility]- famotidine 20 mg PO DAILY fluticasone propion-salmeterol 113-14 mcg/actuation (AirDuo RespiClick) 1 inh inhalation Q12H 30 days labetalol 50 mg (1/2 x 100 mg) PO BID mecobalamin (vitamin B12) (B12 Active) 2,000 mcg (2 x 1,000 mcg) PO DAILY nifedipine ER mg PO sertraline 200 mg PO .at night tramadol 50 mg PO DAILY PRN Do you need a note to return to daycare/school/sports/work: No HPI HPI Comments History of Present Illness Details Here today for AWV. The Medicare Annual Wellness Visit (AWV) is a yearly appointment with a health professional to identify health risks and help reduce them and to create or update a personalized prevention plan. During a Medicare AWV, health professionals should also review any current opioid prescriptions, detect any cognitive impairment, and establish or update medical and family history. 69 y/o f with benign lipid adenoma bilat, R renal cyst, uterine fibroid, severe atherosclerotic calcification of the aorta and moderate to severe calcifications of the iliofemoral vessels (CT abd pelvis 01/2024), spinal DJD, bilat lung nodule, current smoker, COPD, thyroid ca, ANA, HTN, hx of renal stones, MDD , osteopenia, s/p L arm fracture, b 12 def s/p hemithyroidectomy 2020, bowel resection, S/p bilat CTS, Multiple teeth extractions Fmhx: Mom brain ca 29, dad mi 62, brother skin ca, sister CVA, Sz 55, family hx of etoh abuse, sister of etoh abuse sp liver transplants - Significant heart issues on the paternal side; many relatives before age 65 due to heart conditions. - Brother with a pacemaker and prior cardiac catheterization. - Sister with two liver transplants and subsequent due to alcohol-related liver disease. Health Maintenance See scanned preventative medicine assessment with personalized health plan and screening schedule. Dexa 2021 repeat ordered Tdap UTD Flu UTD Mammo ordered Colon: next due age 72 however declined future Vaccines: UTD AAA screen: NA EKG: done previous Specialist lung ca screening - referred to [facility] [place] [facility] @ [facility] [place], last visit 07/2024 Visual Acuity: wears glasses, routine eye exam Hearing Screening: normal hearing, no hearing aides ACP: does not have hcp or molst, forms reviewed and provided today Dietary/Nutrition/Exercise Edu provided: Y During the course of the visit the patient was educated and counseled about appropriate screening and preventative services. Patient instructions were provided to the patient in written or electronic format. I have reviewed and verified the above information. History of Present Illness - The patient is a 69-year-old female presenting for an annual Medicare wellness visit & complex dz mgmt - Essential Hypertension/Bradycardia: is managed with labetalol 50 mg w/ tapering. Improvement in dizziness. - She complains of muscle stiffness and cramping, primarily at night self limiting. - Eustachian tube dysfunction causes persistent ear plugging and drainage, seemingly affecting her balance. Prior ear irrigation offered temporary relief. She is in PT. Tried Vestibular therapy w/o relief previously. Has not had hearing test/exam. Willing to be referred to Audio for eval and tx. - She has experienced significant weight loss, likely due to altered eating habits following multiple teeth extractions. Wt stable at this time. Does not want to do any more colonoscopies. - Needs handicap parking placard. Completed today and returned to her @ time of visit. - Taking b12. - No GERD w/ famotadine taper. Review of Systems - Neurological: Reports balance issues. - Ears: Reports persistent ear plugging and drainage. - Musculoskeletal: Reports bilateral muscle stiffness and cramping. - Nutrition: Reports significant weight loss and changes in diet due to dental issues. Exam Awake alert, frail EAC clear bilat, TM intact dull bilat Bradycardic, regular rhythm LS dim throughout No edema BLE Mood and affect appropriate Results A1c done in office today 5.1% - Labs: Previous glucose levels recorded at 109, later reduced to 104 post-atorvastatin discontinuation. - Imaging: Prior CAT scan showing vascular calcification in the abdomen. Labs from 09/20/2024 show a normal CBC, normal electrolytes, normal renal function, normal iron, normal LFTs, normal lipid profile with LDL 94, normal vitamin-D and TSH, normal urine microalbumin creatinine ratio, b12 low Assessment and Plan Essential Hypertension/bradyacardia BP stable w/ taper. Sx of dizziness/imbalance improved. Labetolol 50mg QD x 1 then stop. Eustachian Tube Dysfunction: - Referred to car coupler for further evaluation. ENT referral may be required. Weight Loss: - Continue assessing weight changes and nutritional intake adjustments following dental issues.At this time wt stable CAD - consider adding zetia at next visit; want to wait until off labetolol and famotadine before adding another variable Smoking Cessation: - Support cessation efforts due to health risks. enrolled in lung ca screening No GERD sx on famotadine taper. Advised to stop. b12 def taking supplement declined future colonoscopy handicap placard complete RTO 2 weeks for BP/P recheck w/ labetolol stop, sooner PRN Consent Patient was informed and verbally consented to the use of an ambient scribe for clinic note documentation during this visit. An additional 40 minutes was spent addressing the problem(s) noted at todays visit. This includes time spent before the visit reviewing the chart, time spent during the visit, and time spent after the visit on documentation reviewing laboratory results, diagnostic imaging, medications, performing a medically necessary evaluation, counseling on diagnoses, care coordination, ordering appropriate tests, ordering appropriate medications, review of tests performed by other providers, reporting test results with the patient, communication with other healthcare providers. [facility] Medical History (Updated 10/19/24 @ 17:14 by WILL Rivas-JAMES) COPD (chronic obstructive pulmonary disease) History of mammogram ANA (obstructive sleep apnea) Pulmonary nodules Smoking Thyroid cancer Surgical History (Updated 10/19/24 @ 17:14 by WILL Rivas-JAMES) H/O laminectomy History of bowel resection History of colonoscopy Previous back surgery Family History Sister Depression Brother Depression HTN (hypertension) Father HTN (hypertension) Heart disease Paternal Grandfather HTN (hypertension) Brother Heart disease Other FH: mental illness Social History Housing: House Alcohol intake: current Patient Tobacco Use Status: Current everyday Tobacco user Tobacco use type: Cigarette Cigarettes Per Day: 10 Years Smoked: 20 e-Cigarette/Vaping Use: Never Used service: No Current occupational status: retired Cognitive needs: No Hearing needs: Yes (need hearing checked) Vision needs: Yes (glasses) Questionnaire Medicare Wellness Checkup [age] What gender do you identify with?: female During the past 4 weeks, how much have you been bothered by emotional problems such as feeling anxious, depressed, irritable, sad or downhearted, and blue?: not at all During the past 4 weeks, has your physical & emotional health limited your social activities with family, friends, neighbors, or groups?: not at all During the past 4 weeks, how much bodily pain have you generally had?: no pain During the past 4 weeks, was someone available to help you if you needed & wanted help?: yes, as much as I wanted During the past 4 weeks, what was the hardest physical activity you could do for at least 2 minutes?: light Can you get to places out of walking distance without help? (For eg., can you travel alone on buses, taxis or drive your car?): Yes Can you go shopping for groceries or clothes without someone's help?: Yes Can you prepare your own meals?: Yes Can you do your housework without help?: Yes Because of any health problems, do you need the help of another person with your personal care needs such as eating, bathing, dressing or getting around the house?: No Can you handle your own money without help?: Yes During the past 4 weeks, how would you rate your health in general?: good During the past 4 weeks how have things been going for you?: pretty well Are you having difficulties driving your car?: no Do you always fasten your seat belt when you are in a car?: yes, usually During past 4 weeks, have you been bothered by the following: never: Sexual problems?, Problems using the telephone? and Tiredness or fatigue?, seldom: Falling or dizzy when standing up and often: Trouble eating well? and Teeth or denture problems? Have you fallen 2 or more times in the past year?: No Are you afraid of falling?: No Are you a smoker?: yes, but I'm not ready to quit During the past 4 weeks, how many drinks of wine, beer, or other alcoholic beverages did you have?: no alcohol at all Do you exercise for about 20 minutes 3 or more times a week?: no, I usually do not exercise this much Have you been given information to help with the following?: no: Hazards in your house that might hurt you? and no: Keeping track of your medications? How often do you have trouble taking medicines the way you have been told to take them?: I always take medicine as prescribed How confident are you that you can control & manage most of your health problems?: very confident What is your race?: White Activity of Daily Living Bathing - sponge bath, tub bath or shower: receives no assistance (gets in/out by self, if usual bathing means Dressing - getting clothes from closets & drawers, including inner/outer garments & fasteners.: gets clothes & gets completely dressed without help Toileting - going to the 'toilet room' for urine/bowel elimination & cleaning self/arranging clothes: goes to toilet room, cleans self, arranges clothes without help Transfer: moves in & out of bed and chair without help (may use support object) Continence: controls urination/bowel movements completely by self Feeding: feeds self without help Total Score: 0 Information obtained from: patient Using telephone: independent Traveling: independent Shopping: independent Preparing meals: independent Housework: independent Taking medicine: independent Managing money: independent PHQ-9 Over the last 2 weeks, how often have you been bothered by any of the following problems? 1. Little interest or pleasure in doing things: not at all 2. Feeling down, depressed, or hopeless: not at all 3. Trouble falling or staying asleep, or sleeping too much: not at all 4. Feeling tired or having little energy: not at all 5. Poor appetite or overeating: not at all 6. Feeling bad about yourself - or that you are a failure or have let yourself or your family down: not at all 7. Trouble concentrating on things, such as reading the newspaper or watching television: not at all 8. Moving or speaking so slowly that other people could have noticed. Or the opposite - being so fidgety or restless that you have been moving around a lot more than usual: not at all 9. Thoughts that you would be better off or of hurting yourself in some way: not at all Total score: 0 Depression Screening Interpretation: Negative Depression Screening Done: Yes 75619 - PHQ-9 Billing: Yes Source: Developed by Drs. Robert Rothman, Alexandria Frausto, Cristino Miller and colleagues, with an educational susy from [employer]. Physical Exam Vital Signs: Last Vital Signs Temp 97.2 F 10/19/24 11:42 Pulse 55 10/19/24 11:42 Resp 12 10/19/24 11:42 BP 110/70 10/19/24 11:42 Pulse Ox 95 10/19/24 11:42 Oxygen Delivery Method Room Air 10/19/24 11:42 BMI result Body Mass Index 19.7 Office Procedures Vision Screening Right Eye: 20/25 Left Eye: 20/20 Bilateral: 20/20 Color: Pass Corrected: Pass 90583 - Vision Screening Results AMB Hemoglobin A1c AMB Hemoglobin A1c 5.1 % Last Edit by Lobo Ignacio MA on 10/19/24 12:10 Results Reviewed Results Reviewed: Laboratory Last Values Hgb A1c (Clinic) 5.1 % (4.0-6.0) 10/19/24 12:03 Assessment & Plan Assessment & Plan (1) Encounter for subsequent annual wellness visit (AWV) in Medicare patient: Code(s): Z00.00 - Encounter for general adult medical examination without abnormal findings (2) Dizziness: Code(s): R42 - Dizziness and giddiness (3) Ear disorder: Code(s): H93.90 - Unspecified disorder of ear, unspecified ear Qualifiers: Laterality: bilateral Qualified Code(s): H93.93 - Unspecified disorder of ear, bilateral (4) Tobacco use: Code(s): Z72.0 - Tobacco use (5) HTN (hypertension): Code(s): I10 - Essential (primary) hypertension Qualifiers: Hypertension type: primary hypertension Qualified Code(s): I10 - Essential (primary) hypertension (6) Frequent falls: Code(s): R29.6 - Repeated falls (7) Colon cancer screening declined: Onset Date: ~10/19/24 Code(s): Z53.20 - Procedure and treatment not carried out because of patient's decision for unspecified reasons (8) CAD (coronary artery disease): Comment: severe atherosclerotic calcification of the aorta and moderate to severe calcifications of the iliofemoral vessels (CT abd pelvis 2023) Code(s): I25.10 - Atherosclerotic heart disease of [place] coronary artery without angina pectoris Qualifiers: Coronary Disease-Associated Artery/Lesion type: [place] artery [place] vs. transplanted heart: [place] heart Associated angina: without angina Qualified Code(s): I25.10 - Atherosclerotic heart disease of [place] coronary artery without angina pectoris Plan . Orders: Orders AMB Hemoglobin A1c Today Z13.9 - Encounter for screening, unspecified Referrals Audiology Referral H93.90 - Unspecified disorder of ear, unspecified ear, R42 - Dizziness and giddiness Medications: Discontinued labetalol Discontinued Reason: Doctor's Order 50 mg (1/2 x 100 mg) PO BID 60 tabs 0RF Quality Reporting (2019) Adult ([facility] 138//) Smoking risk assessment performed?: Yes Patient Tobacco Use Status: Current everyday Tobacco user Tobacco cessation counseling provided: Yes Items discussed: Nicotine replacement, QuitWorks and Other Pharmacotherapy not ordered: No Depression screening performed: Yes Screen Results: Yes Negative screen Systolic BP not done?: No Diastolic BP not done?: No BMI screening not done: No Sexual Activity Screening ([facility] 153) Sexually active?: No Immunizations ([facility] 147, 117) Annual Influenza Vaccine: Yes Measles Antibody Test: No Mumps Antibody Test: No Rubella Antibody Test: No Varicella Antibody Test: No Anti Hepatitis A IgG Antigen test: No Anti Hepatitis B Virus Surface Ab test: No Fall Risk Screening ([facility] 139) Last assessed Fall Risk: 10/19/24 Fall risk assessment: 2 + Falls in past year Dementia Assessment ([facility] 149) Cognitive assessment recorded: Yes Assessment of cognition with standardized tool: Yes Depression/Bipolar (159/160/161/177) PHQ-9: Total score: 0 Ophthalmol:Cataracts Visual Acuity (133) Visual acuity exam performed: Yes (see results) Coding Level of Care Code Medicare Subsequent (G0439) Est Pt Level 5 (24413) Diagnoses Encounter for subsequent annual wellness visit (AWV) in Medicare patient Z00.00 Dizziness R42 Disorder of both ears H93.93 Laterality: bilateral Tobacco use Z72.0 Primary hypertension I10 Hypertension type: primary hypertension Frequent falls R29.6 Colon cancer screening declined Z53.20 Coronary artery disease involving [place] coronary artery of [place] heart without angina pectoris I25.10 Coronary Disease-Associated Artery/Lesion type: [place] artery [place] vs. transplanted heart: [place] heart Associated angina: without angina CPT Codes Advance Care Planning - Time spent: 1-15 minutes, not on file ([id number]) Vision Screening - Vision Screenin - Vision Screening ([id number]) Additional Codes PHQ-9 - 18758 - PHQ-9 Billing: Yes ([id number]) Advance Care Planning Advance Care Planning discussion: Exists, not on file Date of discussion: 10/19/24 Forms completed: Health Care Proxy, MOLST and Living will Time spent: 1-15 minutes, not on file Actual minutes spent: 5
[2024-10-19 11:42] VITALS: BP 110/70; PULSE 55; RESP 12; TEMP 36.2; O2SAT 95; BMI 19.7
--- OUTSIDE RECORDS SUMMARY | 2024-10-19 13:31 | XMS_ITS | Data Portability ---
Author Organization [facility], [facility] Address [address] [place] [address] Care Team Providers Care Pit Slagman Name Role Phone EVERARDO VAZQUEZ Manager Of Financial Reporting EMELIA ELIZABETH Primary Care Provider DEANNA JIMENEZ Orthopedist PARVEEN DELVALLE, DMITRIY Sales Trainee Assessment Encounter Date Assessment Date Assessment LastModified [...] staff. Total time: (39 minutes) 07/03: Right arnjith- stable. TFTs ok Going for BMD soon. [...] recorded. Lab TSH, serum or plasma 2023 [facility], [address] [place] [address], [address], 12:31:07 T4, free, serum 2023 024 [facility], [address] [place] [address], [address], 11:52:26 T3, total, serum 2023 [facility], [address] [place] [address], [address], 11:09:06 FSH (follicle-s timulating hormone), serum 2023 024 [facility], [address] [place] [address], [address], 11:09:07 igf-1 (insulin-li ke growth factor), serum 2023 024 [facility], [address] [place] [address], [address], 14:43:26 cortisol, am, serum 2023 024 [facility], [address] [place] [address], [address], 14:43:25 acth, plasma 2023 024 [facility], [address] [place] [address], [address], 14:43:27 prolactin, serum 2023 024 [facility], [address] [place] [address], [address], 4 14:43:27 lipid panel, serum 2023 024 [facility], [address] [place] [address], [address], 4 11:46:37 CBC 2023 024 [facility], [address] [place] [address], [address], 4 15:23:54 TSH, serum or plasma 2023 024 [facility], [address] [place] [address], [address], 4 15:23:40 BMP, serum or plasma 2023 024 [facility], [address] [place] [address], [address], 4 11:46:37 urinalysis, dipstick 2022 023 [facility], [address] [place] [address], [address], 3 13:57:42 Referral None recorded. Procedures None recorded. Surgeries None recorded. Imaging MAMMO, screening, tomosynthes is, bilateral 2022 023 [facility]), [address], [place], [address], 3 16:06:19 LDCT, chest, for lung cancer screening - Please enroll this patient in the LDCT Lung Cancer Screening Program (for ordering, follow up and shared decision making)h as hx known nodules. Dr. Leavitt 09/04/212022 023 [facility], [address] [place], [address], 3 17:26:04 Medication Orders albuterol sulfate HFA 90 mcg/actuati on aerosol inhaler 2023 024 MICHELE [facility], [address] [place] [address], [address], [place], [place], [id number], 4 14:18:20 clotrimazol e 10 mg darian 2022 023 [email or web address] [facility], [address] [place], [address], [place], [place], [id number], 14:14:41 Patient TargetsNo targets recorded. Patient Instructions Encounter Date Encounter Id Patient Instructions Last Modified By Organization Details Last Modified Time 01/01/2023 [id number] high cholesterol lifestyle changes Not available 01/01/2023 14:40:56 advance directives: care instructions Not available 01/01/2023 14:40:57 preventing falls: care instructions Not available 01/01/2023 14:40:57 hearing loss: care instructions Not available 01/01/2023 14:40:56 well visit, over 65: care instructions Not available 01/01/2023 14:40:57 05/05/2024 [id number] - Get labs done before 8AM. [email or web address] [...] My Health To Do List {{go to [employer] [email or web address] Theater or call * sign up for maru text 2 quit or other stop smoking maru contact Nearpodee.gov}} {{go to [employer] or call s ign up for maru text 2 quit or other stop smoking maru contact smokePayfirma.gov*}} {{go to [employer] or call s ign up for maru text 2 quit or other stop smoking maru contact [facility].gov}} Counseling done {{Patient not ready to quit [...] {{adding exercise regular meals stress management impro schooxg sleep therapist identifying sponsor}} {{adding exercise regular meals stress management impro [employer] sleep therapist identifying sponsor}} My [facility] To Do List {{go to [employer] or call s ign up for maru text 2 quit or other stop smoking maru contact smokePayfirma.gov}} {{go to [employer] or call s ign up for maru text 2 quit or other stop smoking maru contact [facility].gov}} {{go to [employer] or call s ign up for maru text 2 quit or other stop smoking maru contact smokeZeroFOXee.gov}} Not available 05/03/2024 09:03:04 06/23/2024 [id number] [email or web address] Not available 06/26/2024 18:30:45 6 months/ [...] My Health To Do List {{go to [employer] or call * sign up for maru text 2 quit or other stop smoking maru contact smokePayfirma.gov}} {{go to quitCapptain or call s ign up for maru text 2 quit or other stop smoking maru contact [facility].gov*}} {{go to quitCapptain or call s ign up for maru text 2 quit or other stop smoking maru contact [facility].gov}} Counseling done {{Patient not ready to quit [...] My Health To Do List {{go to [employer] or call s ign up for maru text 2 quit or other stop smoking maru contact smokefrStrikeface.gov}} {{go to [employer] or call s ign up for maru text 2 quit or other stop smoking maru contact smokePayfirma.gov}} {{go to [employer] or call s ign up for maru text 2 quit or other stop smoking maru contact smokePayfirma.gov}} [email or web address] Not available 06/23/2024 15:00:31 Reason for [...] furth er confi rmati on Not Available [address], [address], 12/25/2022 16:23:00 12/26/19 23 12/25/2022 HGB A1C estimated average glucose 102.5 mg/dL Not Available [address], [address], 12/25/2022 16:23:00 12/26/19 23 12/25/2022 VITAM IN [...] er than 30 ng/mL . Not Available [address], [address], 12/25/2022 16:26:10 12/26/1912/25/2022 TSH TSH 1.79 uIU/m L 0.50-6 .00 The Ameri can Colle ge of Endoc rinol ogy and Ameri can Thyro id Assoc iatio n recom mend goal TSH value s betwe en 0.4-4 .0 mIU/m L. Not Available [address], [address], 12/25/2022 16:26:15 12/26/19 23 12/25/2022 BASIC METAB OLIC PANEL glucose 120 mg/dL 70-100 high Not Available [address], [address], 12/25/2022 16:33:09 12/26/19 23 12/25/2022 BASIC METAB OLIC PANEL BUN 7 mg/dL 7-18 Not Available [address], [address], 12/25/2022 16:33:09 12/26/19 23 12/25/2022 BASIC METAB OLIC PANEL creatinine 0.8 mg/dL 0.8-1. 3 Not Available [address], [address], 12/25/2022 16:33:09 12/26/19 23 12/25/2022 BASIC METAB OLIC PANEL B/C 8.8 ratio Not Available [address], [address], 12/25/2022 16:33:09 12/26/19 23 12/25/2022 BASIC METAB [...] be used in pregn junaid. Not Available [address], [address], 12/25/2022 16:33:09 12/26/19 23 12/25/2022 BASIC METAB OLIC PANEL sodium 141 mmol/ L 136-14 5 Not Available [address], [address], 12/25/2022 16:33:09 12/26/19 23 12/25/2022 BASIC METAB OLIC PANEL potassium 3.6 mmol/ L 3.5-5. 1 Not Available [address], [address], 12/25/2022 16:33:09 12/26/19 23 12/25/2022 BASIC METAB OLIC PANEL chloride 98 mmol/ L 96-107 Not Available [address], [address], 12/25/2022 16:33:09 12/26/19 23 12/25/2022 BASIC METAB OLIC PANEL anion gap 11.7 5.0-15 .0 Not Available [address], [address], 12/25/2022 16:33:09 12/26/19 23 12/25/2022 BASIC METAB OLIC PANEL CO2 31 mmol/ L 21-32 Not Available [address], [address], 12/25/2022 16:33:09 12/26/19 23 12/25/2022 BASIC METAB OLIC PANEL calcium 9.4 mg/dL 8.5-10 .3 Not Available [address], [address], 12/25/2022 16:33:09 12/26/19 23 12/25/2022 LIPID PANEL cholesterol 178 mg/dL <200 mg/dl Rola able 200-2 39 mg/dl Borde rline High >240 mg/dl High Not Available [address], [address], 12/25/2022 16:33:11 12/26/19 23 12/25/2022 LIPID PANEL triglyceride s 76 mg/dL <150 mg/dL Mercedes l 150-1 99 mg/dL Borde rline High 200-4 99 mg/dL High >500 mg/dL Very High Not Available [address] [place], [address], 12/25/2022 16:33:11 12/26/19 23 12/25/2022 LIPID PANEL direct HDL 80 mg/dL <40 mg/dl - Major Risk for CHD >60 mg/dl - Negat wesley Risk for CHD Not Available [address] [place], [address], 12/25/2022 16:33:11 12/26/19 23 12/25/2022 DIREC T [...] r is not braxton liang. Not Available [address], [address], 12/25/2022 16:33:14 01/02/20 23 01/01/2023 POC UA glu UA NEGATI VE Not Available [facility] [address] [place] [address], [address], 01/01/2023 13:57:42 01/02/20 23 01/01/2023 POC UA clarity UA CLEAR Not Available [facility] [address] [place] [address], [address], 01/01/2023 13:57:42 01/02/20 23 01/01/2023 POC UA uro UA 0.2000 Not Available [facility] [address] [place] [address], [address], 01/01/2023 13:57:42 01/02/20 23 01/01/2023 POC UA ket UA NEGATI VE Not Available [facility] [address] [place] [address], [address], 01/01/2023 13:57:42 01/02/20 23 01/01/2023 POC UA pro UA NEGATI VE Not Available [facility] [address] [place] [address], [address], 01/01/2023 13:57:42 01/02/20 23 01/01/2023 POC UA nit UA NEGATI VE Not Available [facility] [address] [place] [address], [address]63, 01/01/2023 13:57:42 01/02/20 23 01/01/2023 POC UA rebekah UA NEGATI VE Not Available [facility] [address] [place] [address], [address], 01/01/2023 13:57:42 01/02/20 23 01/01/2023 POC UA pH UA 7.0000 Not Available [facility] [address] [place] [address], 23[address], 01/01/2023 13:57:42 01/02/20 23 01/01/2023 POC UA SG UA 1.0200 Not Available [facility] [address] [place] [address], [address], 01/01/2023 13:57:42 01/02/20 23 01/01/2023 POC UA color UA YELLOW Not Available [facility] [address] [place] [address], [address]82, 01/01/2023 13:57:42 01/02/20 23 01/01/2023 POC UA blo UA NEGATI VE Not Available [facility] [address] [place] [address], 80[address], 01/01/2023 13:57:42 01/02/20 23 01/01/2023 POC UA bren UA NEGATI VE Not Available [facility] [address] [place] [address], [address], 01/01/2023 13:57:42 02/05/20 24 02/05/2024 HGB A1C [...] furth er confi rmati on Not Available [address], [address], 02/05/2024 15:16:31 02/05/20 24 02/05/2024 HGB A1C estimated average glucose 105.4 mg/dL Not Available [address], 8101[address], 02/05/2024 15:16:31 02/05/20 24 02/05/2024 CBC WBC 7.83 K/??L 3.98-1 0.04 Not Available [address], [address], 02/05/2024 15:23:54 02/05/20 24 02/05/2024 CBC RBC 4.36 M/??L 3.93-5 .22 Not Available [address], 59[address], 02/05/2024 15:23:54 02/05/20 24 02/05/2024 CBC HGB 14.3 g/dL 11.2-1 5.7 Not Available [address], [address], 02/05/2024 15:23:54 02/05/20 24 02/05/2024 CBC HCT 41.8 % 34.1-4 4.9 Not Available [address], [address], 02/05/2024 15:23:54 02/05/20 24 02/05/2024 CBC MCV 95.9 fL 79.4-9 4.8 high Not Available [address], [address], 02/05/2024 15:23:54 02/05/20 24 02/05/2024 CBC MCH 32.8 pg 25.6-3 2.2 high Not Available [address], 97605, 02/05/2024 15:23:54 02/05/20 24 02/05/2024 CBC MCHC 34.2 g/dL 32.2-3 5.5 Not Available [address], 13734, 02/05/2024 15:23:54 02/05/20 24 02/05/2024 CBC plt 225 K/??L 182-36 9 Not Available [address], [address], 02/05/2024 15:23:54 02/05/20 24 02/05/2024 CBC MPV 10.8 fL 9.4-12 .3 Not Available [address], 23831, 02/05/2024 15:23:54 02/05/20 24 02/05/2024 CBC neut% 71.8 % 34.0-7 1.1 high Not Available [address], 47278, 02/05/2024 15:23:54 02/05/20 24 02/05/2024 CBC neut# 5.62 1.56-6 .13 Not Available [address], [address]20, 02/05/2024 15:23:54 02/05/20 24 02/05/2024 CBC lymph % 20.9 % 19.3-5 1.7 Not Available [address], 48065, 02/05/2024 15:23:54 02/05/20 24 02/05/2024 CBC lymph # 1.64 K/??L 1.18-3 .74 Not Available [address], 97362, 02/05/2024 15:23:54 02/05/20 24 02/05/2024 CBC mono% 5.6 % 4.7-12 .5 Not Available [address], [address]247, 02/05/2024 15:23:54 02/05/20 24 02/05/2024 CBC mono# 0.44 0.24-0 .56 Not Available [address], [address], 02/05/2024 15:23:54 02/05/20 24 02/05/2024 CBC eo% 0.8 % 0.7-5. 8 Not Available [address], [address], 02/05/2024 15:23:54 02/05/20 24 02/05/2024 CBC eo# 0.06 0.04-0 .36 Not Available [address], [address], 02/05/2024 15:23:54 02/05/20 24 02/05/2024 CBC baso% 0.6 % 0.1-1. 2 Not Available [address], 14368, 02/05/2024 15:23:54 02/05/20 24 02/05/2024 CBC baso# 0.05 0.00-0 .08 Not Available [address], [address], 02/05/2024 15:23:54 02/05/20 24 02/05/2024 CBC RDW-CV 12.3 % 11.7-1 4.4 Not Available [address], [address], 02/05/2024 15:23:54 02/05/20 24 02/05/2024 CBC Ig% 0.300 % 0.000- 1.500 Ig % >0.5 Indic ates possi ble Left Shift Not Available [address], [address], 02/05/2024 15:23:54 02/05/20 24 02/05/2024 CBC Ig# 0.020 0.000- 0.093 Not Available [address], [address], 02/05/2024 15:23:54 02/05/20 24 02/05/2024 CBC NRBC% 0.0 % 0.0-0. 2 Not Available [address], 212[address], 02/05/2024 15:23:54 02/05/20 24 02/05/2024 CBC NRBC# 0.000 0.000- 0.012 Not Available [address], [address], 02/05/2024 15:23:54 02/05/20 24 02/08/2024 BASIC METAB OLIC PANEL glucose 113 mg/dL 70-100 high Not Available [address], [address], 02/08/2024 11:46:36 02/05/20 24 02/08/2024 BASIC METAB OLIC PANEL BUN 16 mg/dL 7-18 Not Available [address], [address], 02/08/2024 11:46:36 02/05/20 24 02/08/2024 BASIC METAB OLIC PANEL creatinine 0.7 mg/dL 0.8-1. 3 low Not Available [address], 29906, 02/08/2024 11:46:36 02/05/20 24 02/08/2024 BASIC METAB OLIC PANEL B/C 22.9 ratio Not Available [address], [address], 02/08/2024 11:46:36 02/05/20 24 02/08/2024 BASIC METAB [...] be used in pregn junaid. Not Available [address], [address], 02/08/2024 11:46:36 02/05/20 24 02/08/2024 BASIC METAB OLIC PANEL sodium 142 mmol/ L 136-14 5 Not Available [address], [address], 02/08/2024 11:46:36 02/05/20 24 02/08/2024 BASIC METAB OLIC PANEL potassium 4.5 mmol/ L 3.5-5. 1 Not Available [address], [address], 02/08/2024 11:46:36 02/05/20 24 02/08/2024 BASIC METAB OLIC PANEL chloride 102 mmol/ L 96-107 Not Available [address], [address], 02/08/2024 11:46:36 02/05/20 24 02/08/2024 BASIC METAB OLIC PANEL anion gap 11.9 5.0-15 .0 Not Available [address], [address], 02/08/2024 11:46:36 02/05/20 24 02/08/2024 BASIC METAB OLIC PANEL CO2 28 mmol/ L 21-32 Not Available [address], [address], 02/08/2024 11:46:36 02/05/20 24 02/08/2024 BASIC METAB OLIC PANEL calcium 9.5 mg/dL 8.5-10 .3 Not Available [address], [address], 02/08/2024 11:46:36 02/05/20 24 02/08/2024 LIPID PANEL cholesterol 204 mg/dL <200 mg/dl Rola able 200-2 39 mg/dl Borde rline High >240 mg/dl High Not Available [address], [address], 02/08/2024 11:46:37 02/05/20 24 02/08/2024 LIPID PANEL triglyceride s 63 mg/dL <150 mg/dL Mercedes l 150-1 99 mg/dL Borde rline High 200-4 99 mg/dL High >500 mg/dL Very High Not Available [address], [address], 02/08/2024 11:46:37 02/05/20 24 02/08/2024 LIPID PANEL direct HDL 72 mg/dL <40 mg/dl - Major Risk for CHD >60 mg/dl - Negat wesley Risk for CHD Not Available [address], [address], 02/08/2024 11:46:37 02/05/20 24 02/08/2024 DIREC T [...] r is not braxton tavera. Not Available [address], [address], 02/08/2024 11:46:38 02/05/20 24 02/08/2024 TSH TSH 1.32 uIU/m L 0.50-6 .00 The Ameri can Colle ge of Endoc rinol ogy and Mameeri can Thyro id Assoc iatio n recom mend goal TSH value s betwe en 0.4-4 .0 mIU/m L. Not Available [address], [address], 02/08/2024 15:23:40 02/29/20 24 03/01/2024 FREE T4 free T4 0.71 NG/dL 0.75-1 .54 low Not Available [address], [address], 03/01/2024 10:48:50 02/29/20 24 03/01/2024 VITAM IN [...] er than 30 ng/mL . Not Available [address], [address], 03/01/2024 10:55:50 02/29/20 24 03/01/2024 TSH TSH 2.30 uIU/m L 0.50-6 .00 The Ameri can Colle ge of Endoc rinol ogy and Ameri can Thyro id Assoc iatio n recom mend goal TSH value s betwe en 0.4-4 .0 mIU/m L. Not Available [address], [address], 03/01/2024 11:03:38 05/31/20 24 05/31/2024 FREE T4 free T4 0.80 NG/dL 0.75-1 .54 Not Available [address], [address], 05/31/2024 11:52:26 05/31/20 24 05/31/2024 TSH TSH 4.12 uIU/m L 0.50-6 .00 The Ameri can Colle ge of Endoc rinol ogy and Ameri can Thyro id Assoc iatio n recom mend goal TSH value s betwe en 0.4-4 .0 mIU/m L. Not Available [address], [address], 05/31/2024 12:31:07 05/31/20 24 06/01/2024 TOTAL T3 total T3 1.28 NG/mL 0.70-1 .70 Not Available [address], [address], 06/01/2024 11:09:06 05/31/20 24 06/01/2024 FSH FSH 70.6 mIU/m L Male: 1.0 - 42.5 mIU/m L Femal e Ovula ting: Folli cular Phase : 2.7 - 15.4 mIU/m L Peak: 3.9 - 22.0 mIU/m L Lutea l Phase : 1.0 - 14.4 mIU/m L Postm enopa usal: 25.0 - 160.0 mIU/m L Not Available [address], [address], 06/01/2024 11:09:07 05/31/20 24 06/01/2024 LIPID PANEL cholesterol 219 mg/dL <200 mg/dl Rola able 200-2 39 mg/dl Borde rline High >240 mg/dl High Not Available [address], [address], 06/01/2024 14:38:40 05/31/20 24 06/01/2024 LIPID PANEL triglyceride s 150 mg/dL <150 mg/dL Mercedes l 150-1 99 mg/dL Borde rline High 200-4 99 mg/dL High >500 mg/dL Very High Not Available [address], [address], 06/01/2024 14:38:40 05/31/20 24 06/01/2024 LIPID PANEL direct HDL 70 mg/dL <40 mg/dl - Major Risk for CHD >60 mg/dl - Negat wesley Risk for CHD Not Available [address], [address], 06/01/2024 14:38:40 05/31/20 24 06/01/2024 LDL - [...] r is not braxton tavera. Not Available [address], [address], 06/01/2024 14:38:42 05/31/20 24 06/01/2024 BASIC METAB OLIC PANEL glucose 104 mg/dL 70-100 high Not Available [address], [address], 06/01/2024 15:00:52 05/31/20 24 06/01/2024 BASIC METAB OLIC PANEL BUN 14 mg/dL 7-18 Not Available [address], [address], 06/01/2024 15:00:52 05/31/20 24 06/01/2024 BASIC METAB OLIC PANEL creatinine 0.8 mg/dL 0.8-1. 3 Not Available [address], [address], 06/01/2024 15:00:52 05/31/20 24 06/01/2024 BASIC METAB OLIC PANEL B/C 17.5 ratio Not Available [address], [address], 06/01/2024 15:00:52 05/31/20 24 06/01/2024 BASIC METAB [...] be used in pregn junaid. Not Available [address], [address], 06/01/2024 15:00:52 05/31/2006/01/2024 BASIC METAB OLIC PANEL sodium 144 mmol/ L 136-14 5 Not Available [address], [address], 06/01/2024 15:00:52 05/31/2006/01/2024 BASIC METAB OLIC PANEL potassium 4.1 mmol/ L 3.5-5. 1 Not Available [address], [address], 06/01/2024 15:00:52 05/31/2006/01/2024 BASIC METAB OLIC PANEL chloride 104 mmol/ L 96-107 Not Available [address], [address], 06/01/2024 15:00:52 05/31/2006/01/2024 BASIC METAB OLIC PANEL anion gap 9.8 5.0-15 .0 Not Available [address], [address], 06/01/2024 15:00:52 05/31/2006/01/2024 BASIC METAB OLIC PANEL CO2 30 mmol/ L 21-32 Not Available [address], 120[address], 06/01/2024 15:00:52 05/31/2006/01/2024 BASIC METAB OLIC PANEL calcium 9.7 mg/dL 8.5-10 .3 Not Available [address], [address], 06/01/2024 15:00:52 05/31/20 24 06/07/2024 IGF 1, LC/MS igf 1, lc/MS 129 NG/mL 34-245 Not Available [facility] [address], [address], 06/07/2024 14:43:26 05/31/2006/07/2024 IGF 1, LC/MS Z score (female) 0.4 SD -2.0 - +2.0 This test was devel oped and its arnold tical perfo rmanc e kamari cteri stics have been deter mined by [facility]. It has not been clear ed or appro ariel by FDA. This assay has been valid ated pursu ant to the CLIA regul ation s and is used for clini laney purpo ses. Not Available [facility] [address], [place], [address], 06/07/2024 14:43:26 05/31/20 24 06/07/2024 ACTH, PLASM A acth, plasma 18 pg/mL 6-50 Refer ence range appli es only to speci mens colle cted betwe en 7am-1 0am. Not Available [facility] [address], [place], [address], 06/07/2024 14:43:26 05/31/2006/07/2024 PROLA CTIN prolactin 9.4 NG/mL normal Refer ence Range Femal es Non-p regna nt 3.0-3 0.0 Pregn ant 10.0- 209.0 Postm enopa usal 2.0-2 0.0 Not Available [facility] [address], [address], 06/07/2024 14:43:27 04/24/2004/24/2023 LDCT, chest , for lung cance r scree luisito No observ ation record ed. [facility] [address], [place], [address], 04/28/2023 17:05:43 04/27/20 23 04/27/2023 MAMMO , [...] PM Reji francis Physic frank: Jai mckee [facility] [address], [place], [address], 04/27/2023 16:30:52 Result Notes None recorded. Problems Name Problem SNOMED Code Status Onset Date Resolution Date Notes Provider Name and Address Organization Details Recorded Time Joint pain 51291365 Completed 01/01/2023 CATHERINE Garza [address] [place] [address], [phone] , [facility] 3 14:47:10 Backache 545317469 Completed 11/15/2014 Yeny Elizabeth NP [address] [place] [address], [phone] , [facility] 5 20:40:22 Sinusiti s [id number] Completed 11/15/2014 Yeny Elizabeth NP [address] [place] [address], [address] , [facility] 5 20:43:58 Sleep apnea 44899283 Active Not Available [facility] 4 00:24:30 Backache 708671297 Active Not Available [facility] 4 00:24:29 Impaired fasting glycemia 562981480 Active 2017 Not Available [facility] 4 00:24:29 Vitamin D deficien cy 00355188 Active 2020 Not Available [facility] 4 00:24:29 Multiple nodules of lung 951942308 Active 2020 non-canc erous. followed by Dr. Julio lawrence. 09/04/21 note - surveill ance is complete . Not Available [facility] 4 00:24:30 Chronic obstruct wesley pulmonar y disease 25169485 Active 2020 PFT 1 Not Available [facility] 4 00:24:29 Osteoart hritis of right hip joint [id number] 9107 Active 2021 follows w/ [facility]. [facility] 4 00:24:29 History of subtotal thyroide ctomy 999060636 Active 2021 Not Available [facility] 4 00:24:30 Decrease d body mass index 4708066 Completed 202101/01/2023 CATHERINE Garza [address] [place] [address], [address] , [facility] 3 13:54:15 Bone density finding 160998839 Active 2022 Not Available [facility] 4 00:24:29 Major depressi on, melancho lic type 121959367 Active 2022 Not Available [facility] 4 00:24:29 History of partial resectio n of colon 985039822 Active 2022 Not Available [facility] 4 00:24:30 Mixed hyperlip idemia 522149404 Active Not Available [facility] 4 00:24:29 Head and neck swelling 049251030 Completed 200206/29/2013 Not Available [facility] 3 02:04:11 Single major depressi ve episode, mild Completed 200611/15/2014 Yeny Elizabeth NP [address] [place] [address], [address] , [facility] 5 20:42:37 Benign neoplasm of skin of trunk, excludin g scrotum Completed 200506/29/2013 Not Available [facility] 3 02:04:05 Essentia l hyperten camryn 46671734 Active Not Available [facility] 4 00:24:30 Chronic nonalcoh olic liver disease 48000333 Active Not Available [facility] 4 00:24:30 Gastroes ophageal reflux disease 811236237 Active Not Available [facility] 4 00:24:29 Non-toxi c uninodul ar goiter [id number] Completed 11/15/2014 Yeny Elizabeth NP [address] [place] [address], [id number] , [facility] 5 20:42:37 Anxiety state [id number] Completed 11/15/2014 Yeny Elizabeth NP [address] [place] [address], [id number] , [facility] 5 20:42:37 Acute pharyngi tis [id number] Completed 06/29/2013 Not Available [facility] 3 02:01:17 Allergic rhinitis 89707624 Active Not Available [facility] 4 00:24:30 Epidermo id cyst of skin [id number] Completed 200506/29/2013 Not Available [facility] 3 02:02:53 Elevated blood-pr essure reading without diagnosi s of hyperten camryn [id number] Completed 200211/15/2014 Yeny Elizabeth NP [address] [place] [address], [address] , [facility] 5 20:40:22 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 Completed 11/15/2014 Yeny Elizabeth NP [address] [place] [address], [address] , [facility] 5 20:40:22 Organic sleep disorder 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 Completed 11/15/2014 Yeny Elizabeth NP [address] [place] [address], [address] , [facility] 5 20:40:22 Acute bronchit is 87194691 Completed 06/29/2013 Not Available [facility] 3 02:01:36 Malaise and fatigue 159333276 Completed 06/29/2013 Not Available [facility] 3 02:00:18 Blood in urine 37730574 Completed 200511/15/2014 Yeny Elizabeth NP [address] [place] [address], [address] , [facility] 5 20:43:58 Carpal tunnel syndrome 29672128 Active 2003 surgery 2010 Not Available [facility] 4 00:24:30 Kidney stone 72243046 Completed 200701/01/2023 CATHERINE Garza [address] [place] [address], [address] , [facility] 3 14:47:07 Ureteric stone 31478446 Completed 200511/15/2014 Yeny Elizabeth NP [address] [place] [address], [address] , [facility] 5 20:43:58 Right upper quadrant pain 671325322 Completed 06/29/2013 Not Available [facility] 3 02:03:18 Sleep disorder 55479803 Completed 11/15/2014 Yeny Elizabeth NP [address] [place] [address], [address] , [facility] 5 20:40:22 Orthosta tic hypotens ion 20912250 Completed 11/15/2014 Yeny Elizabeth NP [address] [place], [address] , [facility] 5 20:40:22 Lymphade nopathy 35551660 Completed 200206/29/2013 Not Available [facility] 3 02:03:13 Tobacco user 778787371 Completed 200211/15/2014 Yeny Elizabeth NP [address] [place], [address] , [facility] 5 20:42:37 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 200511/15/2014 Yeny Elizabeth NP [address] [place] [address], [address] , [facility] 5 20:43:58 Sprain of ankle 62219220 Completed 200406/29/2013 Not Available [facility] 3 02:02:51 Syncope and collapse 393838774 Completed 11/15/2014 Yeny Elizabeth NP [address] [place] [address], [address] , [facility] 5 20:40:22 Joint pain in ankle and foot Completed 200406/29/2013 Not Available [facility] 3 02:01:26 Acute sinusiti s 25001181 Completed 06/29/2013 Not Available [facility] 3 02:02:20 Finding by method 310392700 Completed 200206/29/2013 Not Available [facility] 3 02:01:56 Breast lump 18204646 Completed 200211/15/2014 Yeny Elizabeth NP [address] [place] [address], [address] , [facility] 5 20:40:22 Common cold 96542546 Completed 06/29/2013 Not Available [facility] 3 02:00:28 Mammogra phy abnormal 736158627 Completed 200611/15/2014 Yeny Elizabeth NP [address] [place] [address], [address] , [facility] 5 20:45:31 Idiopath ic peripher al neuropat hy 86859362 Completed 200711/15/2014 Yeny Elizabeth NP [address] [place] [address], [address] , [facility] 5 20:42:37 On examinat ion - a rash Completed 06/29/2013 Not Available [facility] 3 02:00:49 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 Not Available [facility] 4 00:24:30 Dysphagi a 16315057 Completed 11/15/2014 Yeny Elizabeth NP [address] [place] [address], [address] , [facility] 5 20:40:22 Abnormal cervical Papanico laou smear 782071515 Completed 200711/15/2014 Yeny Elizabeth NP [address] [place] [address], , [facility] 5 20:55:49 Non-orga evelyn sleep disorder 081871896 Completed 200511/15/2014 Yeny Elizabeth NP [address] [place] [address], , [facility] 5 20:40:22 Open wound of scalp 265934379 Completed 06/29/2013 Not Available [facility] 3 02:04:18 Low back pain 805345769 Completed 01/01/2023 CATHERINE Garza [address] [place] [address], [address] , [facility] 3 14:47:05 Hypothyr oidism 80139272 Completed 200211/15/2014 Yeny Elizabeth NP [address] [place] [address], [address] , [facility] 5 20:42:37 Mononeur itis 52599149 Completed 200701/01/2023 CATHERINE Garza [address] [place] [address], [address] , [facility] 3 14:47:13 Abnormal findings on diagnost ic imaging of skull and head 528018728 Active Not Available [facility] 4 00:24:29 Pain in limb 88565691 Completed 200406/29/2013 Not Available [facility] 3 02:00:56 Heartbur n 44184961 Completed 06/29/2013 Not Available [facility] 3 02:03:55 Difficul ty speaking Completed 11/15/2014 Yeny Elizabeth NP [address] [place], [address] , [facility] 5 20:40:22 Notes:Some problems listed i n Documents: #[id number], #[id number], #[id number], #[id number], #[id number], #[id number] could not be added to this patient's chart. Please review these documents and add these problems to the patient's chart manually as needed. Problem Notes None recorded. Procedures Surgical History Date Name Laterality Status Provider Name and Address Organization Details Recorded Time 024 Smoking cessation counseling completed Rosa Tran LPN [facility] 06/21/2024 11:57:13 024 Smoking cessation counseling completed Rosa Tran LPN [facility] 05/03/2024 09:03:04 023 Smoking cessation counseling cancelled Rayna Stapleton [facility] 06/29/2023 09:58:39 023 Smoking cessation counseling cancelled Rosa Tran LPN [facility] 03/31/2023 14:40:47 023 Smoking cessation counseling completed CATHERINE Garza [address] [place], [address], [facility] 01/01/2023 14:12:24 023 Medicare Wellness Visit completed Gisselle Cid MA [facility] 01/01/2023 13:36:59 022 Smoking cessation counseling completed Gisselle Cid MA [facility] 05/16/2022 14:20:29 022 Smoking cessation counseling completed Everardo Vazquez MD [address] [place], [address], [facility] 04/03/2022 10:41:44 022 Medicare Wellness Visit completed Xiomy Gooden [facility] 12/23/2021 13:50:31 022 Alcohol use screening completed Xiomy Gooden [facility] 12/23/2021 13:50:31 022 Cardiovascular disease risk reduction counseling completed Xiomy Gooden [facility] 12/23/2021 13:50:31 021 Smoking cessation counseling completed Loreta Gloria RN [facility] 07/18/2021 11:27:55 021 Smoking cessation counseling completed Hailey Fleming [facility] 06/05/2021 10:57:46 021 partial lobectomy of thyroid completed Yeny Elizabeth NP [address] [place], [address], [facility] 06/02/2021 12:35:36 021 Biopsy of thyroid completed Dixie Underwood LPN [facility] 01/03/2021 14:35:31 021 Medicare Wellness Visit completed Baldemar Thompson [facility] 12/06/2020 08:49:12 021 COPD Screening completed Baldemar Thompson [facility] 12/06/2020 11:33:22 021 prevention-cardio vascular risk reduction counseling completed Baldemar Thompson [facility] 12/06/2020 08:49:12 021 prevention-annual alcohol misuse screening completed Baldemar Thompson [facility] 12/06/2020 08:49:12 021 biopsy of thyroid completed Dixie Underwood LPN [facility] 12/20/2020 15:57:05 021 Medicare Wellness Visit completed Baldemar Thompson [facility] 08/21/2020 08:16:38 021 prevention-cardio vascular risk reduction counseling completed Baldemar Thompson CMA [facility] 08/21/2020 08:16:38 021 prevention-annual alcohol misuse screening completed Baldemar Thompson CMA [facility] 08/21/2020 08:16:38 019 Nebulizer Tx completed Shaquilleirmayang Archer [facility] 09/14/2018 18:02:56 014 Other (specify) completed Yeny Elizabeth NP [address] [place], [address], [facility] 11/15/2014 20:37:49 012 Suture/staple Removal completed Yeny Elizabeth NP [address] [place], [address], [facility] 09/19/2011 17:19:53 011 Carpal Tunnel Surgery completed Yeny Elizabeth NP [address] [place], [address], [facility] 09/12/2011 12:33:44 004 completed Not Available [facility] 06:05:52 Back Surgery completed Yeny alexandre NP [address] [place], [address], [facility] 04/10/2015 11:56:53 repair of tendon completed Dixie Underwood LPN [facility] 12/20/2020 15:57:18 Imaging Results Imaging Date Name Status LastModified by Organiz ation Details LastModified Time 04/24/2023 LDCT, chest, for lung cancer screening completed [facility] [address] [place], [address], 04/28/2023 17:05:43 04/27/2023 MAMMO, screening, tomosynthesis, bilateral completed rafi [facility] (Imaging) [address], [place], [address], 04/27/2023 16:30:52 Procedure Notes None recorded. Medical Equipment None Reported. Allergies Allergen ID Allergen Name Allergen Category Reaction Reaction Severity Criticality Documentation Date Start Date Code Code System Note Provider Name and Address Organization Details Recorded Time 575284 metoprolo l Not available Not available Not available Not available 01/24/2013 6918 RxNorm marito cardi a. Yeny Elizabeth NP [facility] [place], [address], [facility] 3 11:47:43 012650 spironola ctone medicatio n dizziness Not available Not available 01/25/2016 9997 RxNorm Yeny Elizabeth NP [address] [place] [address] [place], [address], [facility] 6 16:15:07 77285 penicilli n G Not available itching Not available Not available 07/30/2009 7980 RxNorm insid e of skin Not Available [facility] 1 06:05:20 429746 bupropion Not available other Not available Not available 01/26/2017 44683 RxNorm nonst op crypopeye gYeny NP [address] [place] [address] [place], [address], [facility] 7 16:46:02 30467 hydrochlo rothiazid e medicatio n other severe Not available 10/25/2011 5487 RxNorm ortho stasi s and synco pe Yeny Elizabeth NP [address] [place], [place] [address], [address], [facility] 2 18:26:45 54161 amlodipin e medicatio n other severe Not available 10/25/2011 33636 RxNorm ortho stasi s and synco pe Yeny Elizabeth NP [address] [place] [address] [place], [address], [facility] 2 18:26:45 68075 lisinopri l medicatio n cough Not available Not available 10/28/2011 73943 RxNorm Yeny Elizabeth NP [address] [place], [address], [facility] 2 11:17:27 09030 Diovan medicatio n other mild Not available 11/10/2011 44131 2 RxNorm diarr hea and insom caridad Yeny Elizabeth, ANITRA [address] [facility], [place], [address], [facility] 2 11:50:20 Medications Name Sig Start Date [...] Not Available Not Available No t Available [facility] 3098[facility] (PF) 45 mcg (15 mcg x 3)/0.5 mL intramusc ular syringe inject 0.5 millilit er intramus cularly active Not Available Not Available No t Available fluticaso ne 113 mcg-salme terol 14 mcg/actua tion breath activated powdr INHALE 1 PUFF BY MOUTH EVERY 12 HOURS active Not Available Not Available No t Available [facility] 6068-3068 (PF) 45 mcg(15 mcg x 3)/0.5 mL [...] Updated DateTime 3 161.29 cm 20 kg/m2 77773.3 3 g 56 /min 142 mm[Hg] 82 mm[Hg] Gisselle Cid [facility] 3 13:45:40 Date Recorded Systolic blood pressure Diastolic blood pressure Provider Name and Address Organization Details Last Updated DateTime 01/01/2023 144 mm[Hg] 82 mm[Hg] CATHERINE Garza [address] [place] [address], [address], [facility] 01/01/2023 14:44:45 Date Recorded Heart rate Systolic blood pressure Diastolic blood pressure Provider Name and Address Organization Details Last Updated DateTime 05/01/2023 52 /min 131 mm[Hg] 86 mm[Hg] Jaida Rosales [facility] 05/01/2023 14:27:03 Date Recorded Body height Heart rate Systolic blood pressure Diastolic blood pressure Provider Name and Address Organization Details Last Updated DateTime 05/18/2023 161.29 cm 50 /min 164 mm[Hg] 76 mm[Hg] Jaimee Lowe RN BSN [facility] 05/18/2023 11:57:49 Date Recorded Body height Provider Name an d Address Organization Details Last Updated DateTime 06/29/2023 161.29 cm Rayna Stapleton [facility] 06/29/2023 09:58:50 Date Recorded Body height Body mass index (BMI) Body weight Heart rate Systolic blood pressure Diastolic blood pressure Provider Name and Address Organization Details Last Updated DateTime 4 161.29 cm 20.3 kg/m2 34474.1 1 g 52 /min 128 mm[Hg] 78 mm[Hg] Minerva Soto [facility] 4 13:56:26 Date Recorded Body height Body mass index (BMI) Body weight Heart rate Systolic blood pressure Diastolic blood pressure Provider Name and Address Organization Details Last Updated DateTime 4 160.02 cm 19.2 kg/m2 66044.4 1 g 49 /min 121 mm[Hg] 65 mm[Hg] Rosa Tran LPN [facility] 4 08:51:37 Date Recorded Body height Body mass index (BMI) Body weight Heart rate Systolic blood pressure Diastolic blood pressure Provider Name and Address Organization Details Last Updated DateTime 4 160.02 cm 19.6 kg/m2 28116.0 3 g 56 /min 136 mm[Hg] 74 mm[Hg] Rosa Tran LPN [facility] 4 13:55:04 Date Recorded Systolic blood pressure Diastolic blood pressure Provider Name and Address Organization Details Last Updated DateTime 01/28/2023 121 mm[Hg] 81 mm[Hg] CATHERINE Garza [address] [place] [address], [address] 02/06/2023 16:28:51 Date Recorded Systolic blood pressure Diastolic blood pressure Systolic blood pressure Diastolic blood pressure Provider Name and Address Organization Details Last Updated DateTime 05/21/2023 148 mm[Hg] 84 mm[Hg] 160 mm[Hg] 97 mm[Hg] [facility] 3 15:52:51 Date Recorded Systolic blood pressure Diastolic blood pressure Systolic blood pressure Diastolic blood pressure Provider Name and Address Organization Details Last Updated DateTime 05/22/2023 152 mm[Hg] 90 mm[Hg] 171 mm[Hg] 87 mm[Hg] Jatin Stapleton [facility] 3 15:53:30 Date Recorded Systolic blood pressure Diastolic blood pressure Provider Name and Address Organization Details Last Updated DateTime 07/27/2023 117 mm[Hg] 78 mm[Hg] Radha Saini [facility] 07/27/2023 14:36:24 Social History Question Answer Notes LastModified by Organization Details LastModified Time Tobacco Smoking Status Current Some Day Smoker PT currently smoking occasionally ALISSA Mulligan [facility] 04/03/2022 09:45:37 What Is Your Level Of [...] 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 6-10yearssinc elastcigarett e Information not available 06/05/2021 How Many Days [...] Many Years Have You Smoked Tobacco? 41 [email or web address] Information not available 06/05/2021 Do You Or [...] changes. Medical History Condition Response NEUROLOGIC Y GASTROINTESTINAL Colon Polyps Y Hyperlipidemia Y Skin Cancer Y Hypertension Y Gynecological HistoryNo gynecological history recorded. Obstetrics History GPAL:G 0 P 0 0 0 0 Immunizations Vaccine Type Date Status Note Provider Nam e and Address Organization Details Recorded Time influenza, seasonal, intradermal, preservative free 1 completed Not Available [facility] 08/27/2019 02:34:20 Td(adult) unspecified formulation 6 completed Not Available [facility] 09/26/2023 00:24:31 influenza, unspecified formulation 7 completed Not Available [facility] 09/26/2023 00:24:31 Influenza, split virus, trivalent, preservative 2 completed Not Available [facility] 08/27/2019 02:32:24 Tdap 3 completed Not Available [facility] 08/27/2019 02:28:48 Novel [id number] 9 completed Not Available [facility] 08/27/2019 02:27:45 Influenza, split virus, trivalent, PF 3 completed Not Available [facility] 08/27/2019 02:18:58 Influenza, split virus, quadrivalent, PF 5 completed Not Available [facility] 08/27/2019 02:19:46 zoster live 5 completed Not Available [facility] 08/27/2019 02:19:45 influenza, unspecified formulation 6 completed Not Available [facility] 09/26/2023 00:24:31 influenza, unspecified formulation 7 completed Not Available [facility] 09/26/2023 00:24:31 Influenza, high-dose, quadrivalent, PF 0 completed Janee Bai LPN null, [facility] 05/28/2020 08:46:57 pneumococcal polysaccharide PPV23 0 completed BLANCA DOYLE NP [address] [place] [address], [address], [facility] 06/20/2020 15:02:02 Influenza, split virus, trivalent, preservative 0 completed Not Available [facility] 08/27/2019 02:17:47 COVID-19, mRNA, LNP-S, PF, 30 mcg/0.3 mL dose 1 completed Not Available [facility] 09/26/2023 00:24:30 COVID-19, mRNA, LNP-S, PF, 30 mcg/0.3 mL dose 1 completed Not Available [facility] 09/26/2023 00:24:30 Td (adult), 2 Lf tetanus toxoid, preservative free, adsorbed 3 completed CATHERINE Garza [address] [place] [address], [address], [facility] 01/02/2023 07:56:47 Influenza, high-dose, quadrivalent, PF 1 completed Not Available [facility] 09/26/2023 00:24:30 COVID-19, mRNA, LNP-S, PF, 30 mcg/0.3 mL dose 1 completed Not Available [facility] 09/26/2023 00:24:31 COVID-19, mRNA, LNP-S, PF, 30 mcg/0.3 mL dose 2 completed Not Available [facility] 09/26/2023 00:24:31 zoster recombinant 2 completed Not Available [facility] 09/26/2023 00:24:30 Influenza, split virus, quadrivalent, preservative 2 completed Not Available [facility] 09/26/2023 00:24:30 Past Encounters Encounter ID Performer Location Encounter Start Date Encounter Closed Date Diagnosis/Indication Diagnosis SNOMED-CT Code Diagnosis ICD10 Code Diagnosis Note [id number] [facility], OFFICE [address] [place] [address] 10/06/2002 15:52:18 08/30/2008 02:02:29 [id number] Radiology , [address] [address] 10/06/2002 00:00:00 08/30/2008 02:02:29 [id number] Radiology , [address] [address] 10/06/2002 16:36:55 08/30/2008 02:02:29 [id number] LAB - [address] [address] 10/07/2002 15:46:52 08/30/2008 02:02:29 [id number] LAB - [address] [address] 11/08/2002 16:26:26 08/30/2008 02:02:29 [id number] [facility], OFFICE [address] [place] [address] 11/08/2002 15:17:41 08/30/2008 02:02:29 [id number] , [facility], OFFICE [address] [facility] [place] [address] 12/08/2002 15:25:39 08/30/2008 02:02:29 [id number] LAB - [facility] [address] [facility] [place] [address] 12/08/2002 15:51:11 08/30/2008 02:02:29 [id number] Radiology , [address] [place] [address] 12/20/2002 14:48:00 08/30/2008 02:02:29 [id number] Radiology , [address] [place] [address] 12/20/2002 00:00:00 08/30/2008 02:02:29 [id number] , [facility], [address] [place] [address] 03/06/2003 10:13:04 08/30/2008 02:02:29 [id number] , [facility], [address] [place] [address] 11/22/2003 12:59:27 11/22/2003 14:55:43 [id number] Radiology , [address] [address] 12/26/2003 15:20:58 08/30/2008 02:02:29 [id number] Radiology , [facility] [address] [place] [address] 12/26/2003 00:00:00 08/30/2008 02:02:29 [id number] [facility], OFFICE [address] [place] [address] 01/19/2004 14:11:55 01/19/2004 15:54:03 [id number] [facility], [address] [place] [address] 03/27/2004 10:47:20 03/28/2004 09:21:52 [id number] LAB - [address] [address] 10/15/2004 14:29:29 10/15/2004 14:29:57 [id number] , [facility], OFF[address] [place] [address] 12/11/2004 15:06:41 12/11/2004 17:50:16 [id number] Radiology , [facility] [place] [place] [address] 12/11/2004 16:00:54 12/12/2004 08:22:27 [id number] Radiology , [facility] [place] [address] 12/11/2004 00:00:00 08/30/2008 02:02:29 [id number] Radiology , [facility] [facility] QASIM Villalobos[address] 01/02/2005 14:50:32 08/30/2008 02:02:29 [id number] Radiology , [facility] [place] [address] 01/02/2005 00:00:00 08/30/2008 02:02:29 [id number] FP [facility], OFFICE [address] [facility] [place] [address] 05/13/2005 14:40:24 08/30/2008 02:02:29 [id number] Radiology , [address] [place] [address] 05/13/2005 15:36:22 08/30/2008 02:02:29 [id number] Radiology , [address] [place] [address] 05/13/2005 00:00:00 08/30/2008 02:02:29 [id number] Physical Therapy, [address] [place] [address] 05/26/2005 12:56:12 08/30/2008 02:02:29 [id number] Physical Therapy, [address] [place] [address] 06/11/2005 15:17:06 08/30/2008 02:02:29 [id number] FP [facility], OFFICE [address] [facility] [place] [address] 12/24/2005 15:41:01 12/25/2005 08:44:40 [id number] [facility] [address] [facility] [address] 12/24/2005 15:41:01 12/25/2005 08:44:40 [id number] Radiology , [address] [place] [address] 01/15/2006 14:31:58 01/16/2006 09:26:07 [id number] Radiology , [address] [place] [address] 01/15/2006 00:00:00 08/30/2008 02:02:29 [id number] FP, [facility], OFFICE [address] [facility] [place] [address] 04/22/2006 15:44:51 04/23/2006 08:28:48 [id number] LAB - [facility] [address] [facility] [place] [address] 04/22/2006 16:15:54 04/22/2006 16:16:11 [id number] , [facility], [address]ICE [address] [place] [address] 04/30/2006 15:02:17 05/01/2006 08:35:41 [id number] Radiology , [facility] 70 [place] [address] 05/31/2007 14:16:16 06/01/2007 09:45:04 [id number] Radiology , [facility] [address] [place] [address] 05/31/2007 00:00:00 08/30/2008 02:02:29 [id number] , [facility], [address] [place] [address] 06/01/2007 15:54:13 08/30/2008 02:02:29 [id number] , [facility], [address] [place] [address] 07/06/2007 15:59:53 08/30/2008 02:02:29 [id number] Radiology , [facility] [address] [place] [address] 07/06/2007 15:26:24 07/07/2007 09:44:25 [id number] Radiology , [address] [address] 07/06/2007 00:00:00 08/30/2008 02:02:29 [id number] Radiology , [facility] [address] [place] [address] 07/06/2007 17:40:10 07/07/2007 09:44:33 [id number] Radiology , [facility] [address] [place] [address] 6 07/06/2007 00:00:00 08/30/2008 02:02:29 [id number] FP, [facility], OFFICE [address] [place] [address] 6 12/20/2007 09:22:27 08/30/2008 02:02:29 [id number] LAB - [facility] 70 [facility] [place] [address] 6 12/20/2007 09:59:25 12/20/2007 09:59:40 [id number] Radiology , [facility] 70 [facility] [place] [address] 6 06/24/2008 11:14:13 06/26/2008 09:15:42 [id number] LAB - [facility] 70 [facility] [place] [address] 6 07/24/2008 12:24:22 07/24/2008 12:24:31 [id number] FP, [facility], OFFICE 70 [facility] [place] [address] 6 07/24/2008 11:11:08 08/30/2008 02:02:29 [id number] Radiology , [facility] 70 [place] [address] 6 07/30/2009 12:03:57 07/31/2009 14:41:39 [id number] FP, [facility], OFFICE [address] [place] [address] 6 07/30/2009 12:53:39 08/01/2009 09:41:41 [id number] FP, L[facility], OFFICE [address] [place] [address] 6 09/03/2009 10:36:11 09/05/2009 09:01:25 [id number] FP, [facility], OFFICE [address] [place] [address] 6 02/18/2010 16:06:54 02/21/2010 11:14:25 [id number] FP, [facility], OFFICE [address] [place] [address] 6 03/04/2010 10:51:19 03/05/2010 09:13:07 [id number] FP, [facility], OFFICE [address] [place] [address] 6 04/08/2010 10:49:52 04/10/2010 12:33:40 [id number] FP, [facility], OFFICE [address] [place] [address] 6 05/06/2010 11:06:59 05/09/2010 08:14:35 [id number] FP, L[facility], OFFICE [address] [place] [address] 6 09/04/2010 10:12:54 09/09/2010 09:54:47 [id number] Radiology , [facility] [address] [place] [address] 6 09/04/2010 11:35:48 09/05/2010 13:47:30 [id number] FP, [facility], OFF[address] [facility] [place] [address] 6 02/17/2011 15:12:45 02/17/2011 16:18:23 [id number] FP, [facility], OFF[address] [place] [facility] [place] [address] 6 03/03/2011 11:25:18 03/03/2011 12:35:48 [id number] FP, [facility], OFF[address] [place] [facility] [place] [address] 6 05/05/2011 11:10:16 05/05/2011 12:18:53 [id number] FP, [facility], OFF[address] [place] [place] [address] 6 06/16/2011 11:24:27 06/16/2011 12:27:11 [id number] FP, C, OFF[address] [place] [facility] [place] [address] 6 09/12/2011 11:49:49 09/12/2011 12:53:46 [id number] FP, C, OFFICE [address] [place] [facility] [place] [address] 6 09/15/2011 10:11:06 09/15/2011 11:20:27 [id number] Radiology , C [address] [place] [facility] [place] [address] 6 09/15/2011 11:18:59 09/22/2011 11:25:46 [id number] Radiology , C [address] [place] [facility] [place] [address] 6 09/15/2011 11:22:42 09/22/2011 11:26:39 [id number] Radiology , C [address] [place] [facility] [place] [address] 6 09/15/2011 13:02:14 09/22/2011 11:27:06 [id number] FP, [facility], OFF[address] [place] [facility] [place] [address] 6 09/19/2011 16:05:15 09/19/2011 17:14:17 [id number] FP, [facility], OFF[address] [place] [facility] [place] [address] 6 10/16/2011 11:04:47 10/16/2011 12:36:29 [id number] , [facility], OFFICE [address] [place] [facility] [place] [address] 6 10/23/2011 10:47:33 10/23/2011 11:31:44 [id number] , C, OFF[address] [place] [facility] [place] [address] 6 10/28/2011 10:53:53 10/28/2011 11:41:32 [id number] , [facility], OFFICE [address] [place] [facility] [place] [address] 6 11/10/2011 11:00:59 11/10/2011 12:05:22 [id number] , [facility], OFFICE [address] [facility] [place] [address] 6 12/22/2011 11:30:06 12/22/2011 12:11:38 [id number] Balbir Cruz MD Radiology , [facility] [address] [facility] [place] [facility] [place] [address] 6 05/03/2012 11:01:39 05/04/2012 10:48:40 [id number] Yeny Elizabeth NP , [facility], OFFICE [address] [place] [facility] [place] [address] 6 05/11/2012 11:43:11 05/11/2012 12:45:41 [id number] Stephy Mccloud CMA FP, [facility], OFFICE [address] [place] [facility] [place] [address] 6 05/13/2012 06:44:42 05/13/2012 16:24:11 [id number] Stacy Echeverria , [facility], OFFICE [address] [place] [facility] [place] [address] 6 10/11/2012 14:33:17 10/11/2012 17:18:16 [id number] Antonio Urbano MD Radiology , [facility] [address] [facility] [address] 6 10/18/2012 11:02:02 10/19/2012 10:11:53 [id number] Yeny Elizabeth NP FP, C, OFFICE [address] [facility] [place] [address] 6 11/29/2012 11:09:20 11/29/2012 12:09:21 [id number] Zoila Cooper , [facility], OFFICE [address] [place] [address] 6 12/27/2012 11:13:39 12/27/2012 12:12:31 [id number] ANITRA Guidry, [facility], OFFICE [address] [place] [address] 6 01/24/2013 10:58:06 01/24/2013 11:59:15 [id number] Jovita Cooper MA , [facility], OFFICE [address] [place] [address] 6 05/02/2013 10:58:25 05/02/2013 12:23:22 Acute bronchitis 99658801 Joint pain 57909619 Influenza vaccine needed [id number] [id number] Yeny Elizabeth NP , [facility], OFFICE [address] [place] [address] 6 12/26/2013 15:36:32 12/26/2013 16:51:55 Adult health examination 461182499 see Risk Assessment and Lifestyle Change Counseling section above Allergic rhinitis 16233030 Backache 057624146 Sinusitis 51477457 Screening for malignant neoplasm of cervix 736450396 Thyroid nodule 408901932 [id number] Yeny Elizabeth NP , [facility], OFFICE [address] [place] [address] 6 01/22/2015 13:40:10 01/22/2015 14:50:12 Adult health examination 166373693 see Risk Assessment and Lifestyle Change Counseling section above Benign ess ential hypertension 7130223 Blood pressure at goal Backache 110031061 Major depr ession, melancholic type 563106323 Gastroesop hageal reflux disease 483149449 Sleep apnea 20588215 [id number] Nimo HICKMAN, [facility], OFFICE [address] [place] [address] 6 04/10/2015 11:01:34 04/10/2015 12:19:45 Lifestyle 129820212 Benign ess ential hypertension 6519916 Blood pressure at goal Backache 007667316 Varicella vaccination 45249225 Influenza vaccine needed 4668766410 [id number] VICK, [facility], OFFICE [address] [place] [address] 6 04/27/2015 11:53:26 04/27/2015 12:51:23 Backache 174631675 Benign ess ential hypertension 6093846 Blood pressure at goal Will be getting another 24hr monitor by nephsarika cheng due to labile BP, difficult to control [id number] Rhianna Pabon LPN FP, [facility], OFFICE [address] [place] [address] 6 06/04/2015 11:08:23 06/04/2015 14:55:19 Tuberculosis screening 737711353 Z11.1 [id number] Rhianna Pabon LPN FP, C, OFFICE [address] [place] [address] 6 06/18/2015 11:15:27 06/18/2015 13:05:30 Tuberculosis screening 090443533 Z11.1 [id number] ANITRA Guidry, C, OFFICE [address] [place] [address] 6 07/26/2015 11:30:59 07/26/2015 12:23:47 Benign essential hypertension 3068548 I10 Blood pressure NOT at goal. [id number] ANITRA Guidry, [facility], OFFICE [address] [place] [address] 6 01/25/2016 15:49:01 01/29/2016 10:59:33 Adult health examination 310393646 Z00.00 see Risk Assessment and Lifestyle Change Counseling section above Benign ess ential hypertension 2468318 I10 Blood pressure NOT at goal. Mixed hyperlipidemia 267 158543 E78.2 [id number] Yeny Elizabeth NP FP, C, OFFICE [address] [place] [address] 6 02/29/2016 09:37:18 02/29/2016 10:27:55 Hand pain 91593918 M79.642 Benign ess ential hypertension 4852007 I10 Blood pressure NOT at goal. [id number] ANITRA Guidry, C, OFFICE [address] [place] [address] 6 07/28/2016 14:23:55 07/28/2016 15:14:02 Benign essential hypertension 8869683 I10 Blood pressure NOT at goal despite 3 agents. Can't tolerate spironolac tone. Mixed hyperlipidemia 267 440813 E78.2 Acute uppe r respiratory infection 73849119 J06.9 [id number] Yeny Elizabeth NP FP, [facility], OFFICE [address] [place] [address] 6 01/26/2017 15:38:43 01/26/2017 17:01:04 Adult health examination 116331291 Z00.00 see Risk Assessment and Lifestyle Change Counseling section above Benign ess ential hypertension 7114313 I10 Blood pressure at goal. Backache 530893241 M54.9 [id number] Yeny Elizabeth NP , [facility], OFFICE [address] [place] [address] 6 05/19/2017 15:23:45 05/19/2017 16:05:28 Cough 45005761 R05 Benign ess ential hypertension 0961112 I10 Blood pressure not at goal. [id number] Yeny Elizabeth NP , [facility], OFFICE [address] [place] [address] 6 06/26/2017 07:49:26 06/26/2017 08:38:01 Benign essential hypertension 4891535 I10 Blood pressure at goal [id number] MD VICK Cardenas, [facility], OFFICE [address] [place] [address] 6 02/16/2018 15:32:13 02/16/2018 16:54:41 Adult health examination 765728824 Z00.00 see Risk Assessment and Lifestyle Change Counseling section above Depression screening 171 385684 Z13.89 depression screening tool administer ed, entered into emr, scored and discussed, time greater than 7.5 minutes Benign ess ential hypertension 5159018 I10 Blood pressure at goal Cough 80600951 R05 Using ProAir occasional ly Screening for malignant neoplasm of colon 355008742 Z12.11 Referral for a DIRECT booked colonoscop y. This patient is a healthy ASA Class 1 or 2 patient (only mild systemic disease), or a STABLE, well controlled insulin dependent diabetic. They do not have serious cardiac disease ie NM/angiopl asty within 1 year, symptomati c CHF; renal failure with CKD 4 or 5; take Coumadin, Plavix, Aggrenox, etc. Sleep apnea 52933781 G47 .30 Please get back to me with name of Cpap provider, will update orders so you can use it again. Impaired f asting glycemia 551311581 R73.01 Blood sugar today 84, continue to monitor [id number] Walter López MD FP, [facility], OFFICE [address] [place] [address] 6 09/14/2018 17:17:47 09/16/2018 11:01:46 Mixed hyperlipidemia 613172371 E78.2 Benign ess ential hypertension 7896230 I10 Blood pressure at goal Cough 23994406 R05 Using ProAir occasional ly Backache 405537115 M54.9 Wheezing 22177438 R06.2 Normal grief reaction 27 6703230 F43.20 [id number] Boo Christine MD FP, [facility], OFFICE [address] [place] [address] 6 10/05/2018 15:20:09 10/05/2018 16:27:59 Benign essential hypertension 7532561 I10 Thyroid nodule 127590328 E04.1 Cough 85758363 R05 [id number] Walter López MD FP, [facility], OFFICE [address] [place] [address] 6 11/02/2018 16:39:52 11/03/2018 09:00:16 Benign essential hypertension 3310837 I10 [id number] Rupinder Eagle DNP, [employer] FP, [facility], OFFICE [address] [place] [address] 6 11/25/2019 13:48:50 11/28/2019 14:47:15 Urinary tract infectious disease 24074463 N39.0 Patient instructed to push fluids, to follow up for persistent or worsening symptoms or fever or back pain.Treat for presumptiv e infection w/ bactrim.Co nsider musculoske latal vs stone. If no improvemen t will need imaging and cultures. [id number] Yeny Elizabeth NP FP, [facility], OFFICE [address] [place] [address] 6 11/30/2019 15:08:40 12/02/2019 13:07:04 Low back pain 617316050 M54.5 Nausea 948842970 R11.0 Night sweats 38062584 R6 1 [id number] Rhianna Murray LPN , [facility], OFFICE [address] [place] [address] 6 05/25/2020 16:15:13 05/28/2020 13:23:56 Active or passive immunization 788794748 Z23 [id number] Lynda Stewart PA-C , [facility], OFFICE [address] [place] [address] 6 06/20/2020 09:51:52 06/22/2020 12:18:11 Abdominal pain 47657954 R10.9 New concern, unclear if all symptoms related to same cause, ? cystitis and/or kidney stones given lower abdominal pain with radiation to groin with back pain, POCT urine with trace leuks only, plan to send for culture. Mass palpated in periumbili laney area ? hernia, plan to obtain CT of abdomen and pelvis to further assess all concerns. Screening mammography 24 107361 Z12.31 Routine screening due, patient agreeable, would like to schedule with G, aware of wait time. Active or passive immunization 327165964 Z23 Depression screening 171 340655 Z13.31 - depression screening tool administer ed, entered into emr, scored and discussed, time greater than 7.5 minutes-Co ntinue sertraline [id number] Yeny Elizabeth NP , [facility], OFFICE [address] [place] [address] 6 07/03/2020 15:32:37 07/04/2020 18:49:34 Essential hypertension 02697176 I10 Major depr ession, melancholic type 424920406 F32.9 Multiple n odules of lung 964738612 R91.8 Liver mass 356228869 R16 .0 [id number] Boo Christine MD , [facility], OFFICE [address] [place] [address] 6 08/21/2020 11:04:42 08/21/2020 14:03:59 Essential hypertension 67982185 I10 Vitamin D deficiency 347 42555 E55.9 Thyroid nodule 232005071 E04.1 Multiple n odules of lung 596281721 R91.8 diffuse, bilateral Tremor 88345126 R25.1 L hand 4th & 5th fingers. [id number] , [facility], OFFICE [address] [place] [address] 10/23/2020 09:00:28 10/24/2020 16:08:20 Essential hypertension 50321582 I10 Mixed hyperlipidemia 267 054239 E78.2 Major depr ession, melancholic type 500883894 F32.9 sertraline 200mg daily. Multiple n odules of lung 056293507 R91.8 diffuse, bilateral Vitamin D deficiency 347 58913 E55.9 [id number] Yeny Elizabeth NP , [facility], OFF[address] [place] [address] 6 12/06/2020 11:27:07 12/07/2020 09:46:33 Essential hypertension 92992227 I10 Mixed hyperlipidemia 267 258310 E78.2 Chronic ob structive pulmonary disease 76860201 J44.9 Adult heal th examination 381003114 Z00.00 see Risk Assessment and Lifestyle Change Counseling section above Counseling 471660347 Z71 .9 including cardiovasc ular risk reduction counseling Depression screening 171 705195 Z13.31 depression screening tool administer ed, entered into emr, scored and discussed, time greater than 7.5 minutes. Screening reviewed with pt. treated for depression with sertraline . Screening for alcohol abuse 186438656 Z13.39 [id number] Everardo Vazquez MD Endocrino logy, [facility] [address] [place] [address] 12/20/2020 15:28:49 12/21/2020 06:31:01 Thyroid nodule 991769314 E04.1 Right nodule. Cytology from [facility] reports benign . This typically would apply [...] genetic analysis. Multiple n odules of lung 903874168 R91.8 Adds to complexity . Concern about whether we can definitive ly link lung nodules to a known primary. Chronic ob structive pulmonary disease 44601670 J44.9 Clinically . Recent PFTs (08/30) c/w emphysema or interstiti al lung disease. Vitamin D deficiency 347 65160 E55.9 Level of 13 (07/29). Given 50K weekly x 1 month. No f/u orders placed. [id number] Everardo Vazquez MD Endocrino logy, [address] [address] 12/27/2020 12:55:55 12/28/2020 06:32:34 [id number] Everardo Vazquez MD Endocrino logy, [facility] [address] [place] [address] 01/03/2021 14:30:30 01/08/2021 13:15:42 Thyroid nodule 381263737 E04.1 Right nodule. Cytology: [place] IV: Suspicious for Follicular Neoplasm. Genomic sequencing concrete float maker pending. Also expression atlas pending. Reviewed ramificati [...] these options are consistent with cytology from [facility] which reported results as benign . While thyroid CA can metastasiz e to lung, one would typically expect to see adenopathy . She has not had significan t apparent adenopathy on exam. Have discussed case with Pulmonary. Genetic sequencing and expression atlas pending. Multiple n odules of lung 804957309 R91.8 Adds to complexity . Concern about whether we can definitive ly link lung nodules to a known primary. Chronic ob structive pulmonary disease 58736508 J44.9 Clinically . Recent PFTs (08/30) c/w emphysema or interstiti al lung disease. Vitamin D deficiency 347 40753 E55.9 Level of 13 (07/29). Given 50K weekly x 1 month. No f/u orders placed. 12/28: suggest get vit D level checked. [id number] Yeny Elizabeth NP , [facility], OFFICE [address] [place] [address] 06/05/2021 10:44:10 06/05/2021 11:39:08 Essential hypertension 21754238 I10 Chronic ob structive pulmonary disease 42181815 J44.9 Cigarette smoker 5497245 7 F17.210 Tobacco user 452426130 Z 72.0 Screening for osteoporosis 777318065 Z13.820 Low back pain 776783583 M54.50 Multiple n odules of lung 405438315 R91.8 diffuse, bilateral Thyroid nodule 047794639 E04.1 Benign ess ential hypertension 9333528 I10 [id number] Lynda Stewart PA-C , [facility], OFF[address] [place] [address] 07/08/2021 11:51:46 07/16/2021 09:19:52 Spasm 28232318 R25.2 describes muscle jerking like spasmrecen t thyroidect yeni, r/o parathyroi d injury - check Cacheck magnesiumi f all normal, she wants to talk to dr. Vazquez at upcoming appt and ask if he thinks this is related somehow to her thyroid. I advised her to let me know if he states it isn't. 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 Should have TSH/free T4 checked (per d/c summary) and see Dr. Vazquez as scheduled. She will have labs today. [id number] Everardo Vazquez MD Endocrino log, [address] [address] 07/18/2021 11:18:55 07/26/2021 06:28:00 Multiple nodules of lung 673020254 R91.8 Adds to complexity . Concern about whether we can definitive ly link lung nodules to a known primary. Chronic ob structive pulmonary disease 48391805 J44.9 Clinically . Recent PFTs (08/30) c/w emphysema or interstiti al lung disease.Di scussed this in relation to smoking and reasons to quit. Vitamin D deficiency 347 15068 E55.9 D= 36.4 (06/30); was 33 (01/28); was 13 (07/29). Had 50K weekly x 1 month.Take s 1-2 daily supplement (07/30). Cigarette smoker 2749365 7 F17.210 Since no clear evidence of metastatic disease, discussed risks/harm s of smoking. Tobacco user 086969727 Z 72.0 Sweating 100179664 R61 Some diarrhea afterwards . Check catechols and also 5hiaa. 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 Not on repalcemen t. check TFTs. [id number] GLENROY MARTI MD , [facility], OFFICE [address] [place] [address] 6 10/31/2021 13:22:38 11/11/2021 09:15:16 Pre-surgery evaluation 489169863 Z01.818 Summary: has low rahel-opera tive risk [...] prophylaxi s as per surgical protocol Backache 310993005 M54.9 rare use of tramadol - refill sent [id number] GLENROY MARTI MD , [facility], OFFICE [address] [place] [address] 12/23/2021 13:29:28 12/23/2021 14:49:50 Adult health examination 092376511 Z00.00 See risk assessment portion of HPI Counseling 601025158 Z71 .9 including cardiovasc ular risk reduction counseling Cardiovasc ular risk reduction was discussed including benefits and risks of aspirin, exercise goals, healthy eating and healthy weight . Discussion greater than 7.5 minutes. Depression screening 171 486789 Z13.31 depression screening tool administer ed, entered into emr, scored and discussed, time greater than 7.5 minutes Screening for alcohol abuse 765369568 Z13.39 An audit alcohol screening test was performed and scored. Patient was asked about alcohol use, advised about risks of alcohol, and personal risk was assessed, patient agreed to plan and given informatio n about available resources if needed. Discussion including screening and scoring less than 7.5 minutes Mixed hyperlipidemia 267 521147 E78.2 Cholestero l is at goal. LDL 65Continue to work on diet and exercise as discussed Essential hypertension 11182981 I10 Controlled . Continue current regimen. Pain in ri ght hip joint 5074858636 61759 M25.551 xrays r/o DJDES Tylenolhad been told not to take NSAIDs due to hypertensi on. Used to prefer Aleve. If pain is not controlled with Tylenol, will try Aleve (or prescripti on naproxen 500 mg) as needed - let me know. Major depr ession, melancholic type 847777230 F33.1 continue sertraline , follow up with therapist. Has been sensitive to other meds so would prefer to stay on same dose. I need a schedule, I need someplace to go. No thoughts of harming herself. Screening mammography 24 049381 Z12.31 Chronic ob structive pulmonary disease 08253510 J44.9 breathing OK - smoking 1 pk/weekCT showed Upper lobe predominan t centrilobu lar emphysema in 01/25/21 at [facility].uses Breo every other day or every 3 days. Legs get stiff when she uses this daily.No glaucoma Mass of axilla 121701895 R22.2 felt last but none now. ?lymph nodeNothin g palpable todayUS ordered [id number] Everardo Vazquez MD Endocrino logy, [facility] [address] [place] [address] 04/03/2022 09:31:23 04/03/2022 13:42:46 Sweating 575052723 R61 Has c/o diarrhea and intermitte nt sweats. Had normal catechols. 5hiaa was slightly high (issues with urine pH collection ). Not high enough to be suspicious for carcinoid. If sx persist, may need to repeat. Multiple n odules of lung 083071854 R91.8 Adds to complexity . Concern about whether we can definitive ly link lung nodules to a known primary. Chronic ob structive pulmonary disease 77737589 J44.9 Clinically . Recent PFTs (08/30) c/w emphysema or interstiti al lung disease.Di scussed this in relation to smoking and reasons to quit. Vitamin D deficiency 347 05800 E55.9 D= 47.5 (03/31); was 36.4 (06/30); was 33 (01/28); was 13 (07/29). Was taking 1-2 daily supplement but lately more prn. Cigarette smoker 1128910 7 F17.210 Since no clear evidence of metastatic disease, discussed risks/harm s of smoking. 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 Not on replacemen t. Check TFTs. [id number] CATHERINE Garza , [facility], OFFICE [address] [place] [address] 05/16/2022 14:08:49 05/16/2022 14:58:54 Tobacco user 477915490 Z72.0 not discussed today, will discuss at f/usmopaulding occasional ly per chart review Active or passive immunization 550977998 Z23 pt already had flu vaccinerem inded about shingles vaccine Pain in right hand 99462 77233 26342 M79.641 s/p fall 2 weeks agorepeat hand/wrist xrays given recurrent edema and painok to continue compressio n brace, rest, ice in the interim Pleuritic pain 9257658 R 07.81 new as of last nightreass uring examencour aged to continue monitoring and call with any changes/wo rsening Pain in ri ght hip joint 8466676362 83635 M25.551 May xray reviewed - moderate degenerati ve changesPT and ortho referrals sentcall as needed Bone density finding 385 732441 M85.80 results 03/2022 reviewed - low bone massFRAX score reviewed: 10 y risk major risk 11%, hip 3.3%discus sed tx options, for now will optimize vitamin D, calcium, and weight-godwin ring and muscle-str engthening repeat scan 2 years Urgent rosalino alan to urinate [id number] R39.15 POC UA showing trace leuksnot enough urine for culture at appt, will have pt return for this Chronic ob structive pulmonary disease 71863963 J44.9 looking into new pulmonolog ist, has recs from Dr. Vazquez1x refill sent of Trelegy so she has it on hand in the interim Backache [id number] M54.9 takes tramadol sparingly as needed for chronic back painlast fill 01/2022 per masspatwil l reassess at f/u [id number] CATHERINE Garza , [facility], OFFICE [address] [facility] [place] [facility] [place] [address] 01/01/2023 13:14:36 01/01/2023 14:31:56 Adult health examination 722116253 Z00.00 Depression screening 171 405294 Z13.31 depression screening tool administer ed. as below. Screening for alcohol abuse 022021251 Z13.39 Alcohol use screening tool administer ed. rec max 7 drinks/wee k. Essential hypertension [id number] I10 consistent ly above goalincrea se nifedipine to 90mg daily (currently taking 60mg daily)f/u 1 month to reassess Mixed hyperlipidemia 267 193860 E78.2 Cholestero l is at goalContin ue to work on diet and exercise as discussed Screening mammography 24 289108 Z12.31 due Active or passive immunization 023069144 Z23 reminded about shingles vaccinetet anus vaccine will do Increased frequency of urination 800490486 R35.0 POC UA negative, unable to send for culture due to limited supplycall with any new/worsen ing symptoms Chronic ob structive pulmonary disease 06469577 J44.9 needs referral to new pulmonolog ist, she will get the name and let us know where she'd like to godoing well otherwise with current inhaler regimen Impaired f asting glycemia 592823735 R73.01 improving, recent A1C 5.2 Bone density finding 385 254409 M85.80 results 03/2022 reviewed - low bone massFRAX score reviewed: 10 y major risk 11%, hip 3.3%prefer s to continue to optimize vitamin D, calcium, and weight-godwin ring and muscle-str engthening repeat scan 2 years Major depr ession, melancholic type 767415578 F33.1 reports acute on chronic depression does virtual therapy which helpsalso continues on sertraline Tobacco user 658048645 Z 72.0 We discussed your smoking today for more than 3 minutes. Cigarette use is the leading cause of preventabl e disease, disability , and in the [place]. We talked about tools and medication s available to help you in smoking cessation. We discussed utilizing our smoking cessation hitting coach and online resources. Your personal goal: to quit! Multiple n odules of lung 788946832 R91.8 per problem list/forme r PCP CE - non-cancer ous. followed by Dr. Leavitt . 09/04/21 note - surveillan ce is complete. pt interested in low dose CT screening to use as f/u as well, as above. Candidiasis of mouth 797 02271 B37.0 will treat with darian per patient preference continue good oral hygiene after inhaler usecall if not resolving History of subtotal thyroidectomy 444280553 Z90.09 original concern for metastatic CA as multiple lung nodules, PET lit up mass in thyroid, now s/p subtotal thyroidect yeni, not on medication , following with Dr. Vazquez regularly History of partial resection of colon 609176666 Z90.49 pre cancerous polyp removal 2008, gets colonoscop ies q5 years [id number] Jaimee Lowe RN BSN , [facility], [address] [place] [address] 05/18/2023 11:17:42 05/19/2023 14:44:12 [id number] JANEE SHIELDS MD , [facility], [address] [place] [address] 02/05/2024 13:40:32 02/05/2024 17:40:33 Cough 07298856 R05.9 Essential hypertension 21924173 I10 Has been elevated in the past so will monitor closely. Reduce nifedipine to 60 mg daily. Continue losartan and labetolol. Mixed hyperlipidemia 267 481025 E78.2 She would like to try discontinu ing the statin. Agreed this is fine but we should recheck her cholestero l in a month. Lightheadedness 04037432 8 R42 Mostly with standing. I think [...] the beta fidel. Unintentio nal weight loss 950145999 R63.4 Thinks this was due to breaking her teeth, sore teeth. Advised her to continue to use her protein shakes. Will check some labs as above. Will need to monitor. Chronic ob structive pulmonary disease 78339296 J44.9 Continue inhalers and follow up with pulm. Refilled albuterol - see below. Abnormal gait 60710554 R 26.9 She does have a stiff and tentative gait. Unclear whether this is due to deconditio luisito, her concerns about falling or something neurologic al. Will re-evaluat e at next visit. 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 Not on replacemen t.Update TFTs since having sx. Chronic ob structive pulmonary disease 98185578 J44.9 Clinically . Recent PFTs (08/30) c/w emphysema or interstiti al lung disease.Di scussed this in relation to smoking and reasons to quit. Cigarette smoker 9907642 7 F17.210 Since no clear evidence of metastatic disease, discussed risks/harm s of smoking. Tobacco user 468144152 Z 72.0 counseling . Thyroid fu nction tests abnormal 495209941 R94.6 Not controlled . TSH= 2.3 (03/02) was 1.32 (01/31) ft4= 0.71 (03/02); was 0.7 (07/02) She is having multiple sx that might be c/w insufficie nt thyroid. Low T4 in setting of normal TSH is not c/w primary abnormalit y. Suggests possibilit y of secondary (pituitary ) issue.[facility] k labs. Dizziness 084864470 R42 Not controlled Orthostati cs show now rise in HR with standing (drops systolic > 20 but not hypotensiv e).On labetalol- 150 bid (was 300 bid). decreased a year ago (?06/01?)c heck cortisol/a cth. If OK, may want to review use of labetalol vs. change to alternativ e. Osteopenia with high fracture risk 0200757760 41259 M85.80 BMD @ VMGL1-L4= -0.1 (05/01) .Femoral Neck= -1.9 (05/01)Left Total Hip= -1.5 (05/01)Risk s: thin, white, post-menop ausal and smoker. Has had wrist fx. Update with new baseline. [id number] Everardo Vazquez MD Endocrino [facility], [facility] [address] [place] [address] 06/23/2024 13:35:00 06/27/2024 06:21:22 Thyroid function tests abnormal 495446833 R94.6 Not controlled . TSH=4.12 (06/02) was [...] related to thyroid. 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 Not on replacemen t.Update TFTs since TSH is slowly rising (although still WNL). Dizziness 887028755 R42 Not controlled Orthostati cs showed rise in HR with standing (drops systolic > 20 but not hypotensiv e).On labetalol- 150 bid (was 300 bid). decreased a year ago (?06/01?) Checked cortisol/a cth and those were OKMay want to review use of labetalol vs. change to alternativ e. Osteopenia with high fracture risk 9009761254 97305 M85.80 BMD @ VMGL1-L4= -0.1 (05/01) .Femoral Neck= -1.9 (05/01)Left Total Hip= -1.5 (05/01)Risk s: thin, white, post-menop ausal and smoker. Has had wrist fx. Recommend: - Update with new baseline in future.- Talk to PCP about physical therapy focus on exercises that don't make dizziness worse. Chronic ob structive pulmonary disease 02265945 J44.9 Clinically . Recent PFTs (08/30) c/w emphysema or interstiti al lung disease.Di scussed this in relation to smoking and reasons to quit. Cigarette smoker 2691265 7 F17.210 Since no clear evidence of metastatic disease, discussed risks/harm s of smoking. Tobacco user 502124500 Z 72.0 counseling . Health Concerns Section Related Observation LastModified by Organization Detai ls LastModified Time None Recorded Concern Status LastModified by Organization Details LastModified Time None Recorded Advance Directives Directive None Recorded Payers Encounter Date Sequence Insurance Name Policy Number Policy Coppola Covered Member ID Coppola Member ID Guarantor Name 01/01/2023 2 [facility] (MEDICARE SUPPLEMENT) Linda Gonzalezan [id number] Linda Dinan 01/01/2023 1 [facility] (MEDICARE REPLACEMENT/A DVANTAGE - PPO) [id number] Linda A Dinan [id number] Linda Dinan 05/18/2023 2 [facility] (MEDICARE SUPPLEMENT) Linda Dinan [id number] Linda Dinan 05/18/2023 1 [facility] (MEDICARE REPLACEMENT/A DVANTAGE - PPO) [id number] Linda A Dinan [id number] Linda Dinan 02/05/2024 1 [facility] (MEDICARE REPLACEMENT/A DVANTAGE - PPO) [id number] Linda A Dinan [id number] Linda Dinan 05/05/2024 1 [facility] (MEDICARE REPLACEMENT/A DVANTAGE - HMO) [id number] Linda A Dinan [id number] Linda Dinan 06/23/2024 1 [facility] (MEDICARE REPLACEMENT/A DVANTAGE - PPO) [id number] Linda A Dinan [id number] Linda Shanita Notes Date Note Type Note Provider Name [...] Risk Assesment:Family History of Coronary Artery Disease(father NM age 62);Does not participate in regular exercise [...] pressure; Has been difficult to control. 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) Back pain - ES tylenol only once a day right hip lot of pain - fermin with weight bearing/walking lipids controlled CATHERINE Garza [address] [place] [address], [phone], [facility] 01/02/2023 08:02:49 4 text/html Hasn't felt well [...] the last month.Drove herself to the hospital ([place]) and was admitted several days (need to request records) Also states she was diagnosed with metastatic cancer at one point in the last few years but then the oncologist left, someone else reviewed the records, stated there was no concerns and it wasn't actually cancer. Has COPD - sees pulm, uses a daily inhaler and albuterol prn JANEE SHIELDS MD [address] [place], [address], [facility] 02/05/2024 16:07:07 4 text/html ThyroidReported bypatient.Previous Evaluation:TSH: [...] or evaluation until current issues came up.a/vmg-smoking [id number] bypatient.ImportanceOn a scale of 1-10 with 1 [...] better (but still high). F/U prn.PULM: Parveen ([place]) Follow-Up: thyroid noduleVMG Tobacco / Vaping Use epLV on 03/31LAst labs on 03/02Last Thyroid US on 1PT had a Ranjith-thyroidectomy in [place] bone density 2021 at [facility] ordered by PCPLabs cuedSmoking only occasionallyPT has [...] lesionBeing evaluated for multiple lung lesions- seeing [facility].Hx kidney stone years ago- removed surgically.07/30: thyroid surgery.05/03: Lung issues not felt to be CA. 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 [...] suspicious. Had lobectomy (07/30) Bx done through [facility] Radiology: 2.2x1.7x2.9 (5 passes)- reported as benign [...] compared to July 2020. Everardo Vazquez MD [address] [place] [address], [phone], [facility] 05/05/2024 12:57:58 4 text/html ThyroidReported bypatient.Previous Evaluation:Previous biopsy cytology ([place] IV: Suspicious for follicular neoplasm. Genomic sequencing [...] or evaluation until current issues came up.a/vmg-smoking [id number] bypatient.ImportanceOn a scale of 1-10 with 1 [...] better (but still high). F/U prn.PULM: Parveen ([place]) Follow-Up: thyroid noduleVMG Tobacco / Vaping Use epLV on 05/03LAst labs on 10/24Last Thyroid US on 1PT had a Ranjith-thyroidectomy in [place] bone density 2021 at [facility] ordered by PCPNO Labs cuedSmoking only occasionallyPT [...] balance. 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 [...] suspicious. Had lobectomy (07/30) Bx done through [facility] Radiology: 2.2x1.7x2.9 (5 passes)- reported as benign [...] compared to July 2020. Everardo Vazquez MD [address] [place] [address], [phone], [facility] 06/26/2024 18:32:05 OBGyn Episode No OBEpisode recorded.
== END 2024-10-19 12:34 | disposition home or self-care (01) ==
LOC: HO.HMCFM 11:26
PROVIDERS: PCP Nurse Practitioner Family; Visit Provider Nurse Practitioner Family
DX: Z00.00 Encounter for general adult medical examination without abnormal findings (principal); R42 Dizziness and giddiness; H93.93 Unspecified disorder of ear, bilateral; Z72.0 Tobacco use; I10 Essential (primary) hypertension; R29.6 Repeated falls; Z53.20 Procedure and treatment not carried out because of patient's decision for unspecified reasons; I25.10 Atherosclerotic heart disease of native coronary artery without angina pectoris

== ENCOUNTER → 2024-10-19 11:24 | Outpatient (BNVA) | payer MEDICARE, SELFPAY | PROVIDERS: PCP Nurse Practitioner Family; Visit Provider Nurse Practitioner Family | DX: Z00.01 Encounter for general adult medical examination with abnormal findings (principal); Z13.1 Encounter for screening for diabetes mellitus; R42 Dizziness and giddiness; H93.93 Unspecified disorder of ear, bilateral; I10 Essential (primary) hypertension; R29.6 Repeated falls; I25.10 Atherosclerotic heart disease of native coronary artery without angina pectoris; Z72.0 Tobacco use | CPT/HCPCS: 83036; 96127; 99212 ==

== ENCOUNTER 2024-11-01 12:45 | Outpatient (REF) | payer MEDICARE, SELFPAY ==
--- NOTE | ~2024-11-01 | MM_ITS ---
EXAMINATION: DXA BONE DENSITY AXIAL HISTORY: Estrogen deficiency TECHNIQUE: CarZen Dual energy absorptiometry (DEXA) of the lumbar spine, total left hip, and femoral neck was performed. COMPARISON: There are no prior studies for comparison. FINDINGS: The bone mineral density of the lumbar spine is 1.096 with a T-score of -0.7, and a Z-score of 1.5. This is indicative of normal bone mineral density. The bone mineral density of the left total hip is 0.712 with a T-score of -2.3, and a Z-score of -0.4. This is indicative of osteopenia. The bone mineral density of the left femoral neck is 0.708 with a T-score of -2.4, and a Z-score of -0.3. This is indicative of osteopenia. FRACTURE RISK: The FRAX index suggests a risk of major osteoporotic fracture of 13.7%, and of hip fracture 5.6%. MM/XR DEXA axial skeleton IMPRESSION: Based on bone mineral density, and according to World Health Organization (WHO) criteria, the diagnosis is consistent with osteopenia. All bone density values are in grams per centimeter squared (g/cm2). Statistically, 68% of repeat scans fall within 1 SD (+/- 0.010 g/cm2 for AP spine L1-L4) and 1 SD (+/- 0.012 g/cm2 for femur total) FRAX is a trademark of the [employer]'s [employer] Metabolic Bone Disease, a World Health Organization (WHO) Collaborating Center. Electronically signed by: Robert Mendoza MD 11/01/2024 01:55 PM EDT
--- OUTSIDE RECORDS SUMMARY | 2024-11-01 15:27 | XMS_ITS | Data Portability ---
Author Organization [facility], [facility] Address [address] [place] [address] Care Team Providers Care Drum Cleaner Name Role Phone EVERARDO VAZQUEZ Courseware Developer EMELIA ELIZABETH Primary Care Provider [phone] DEANNA JIMENEZ Orthopedist PARVEEN DELVALLE, DMITRIY Economic Historian Assessment Encounter Date Assessment Date Assessment LastModified [...] recorded. Lab TSH, serum or plasma 2023 [facility], [address] [place] [address], [id number], 12:31:07 T4, free, serum 2023 024 [facility], [address] [place] [address], 21906, 11:52:26 T3, total, serum 2023 [facility], [address] [place] [address], 13574, 11:09:06 FSH (follicle-s timulating hormone), serum 2023 024 [facility], [address] [place] [address], 59776, 11:09:07 igf-1 (insulin-li ke growth factor), serum 2023 024 [facility], [address] [place] [address], 97636, 14:43:26 cortisol, am, serum 2023 024 [facility], [address] [place] [address], 18732, 14:43:25 acth, plasma 2023 024 [facility], [address] [place] [address], 45067, 14:43:27 prolactin, serum 2023 024 [facility], [address] [place] [address], 40784, 4 14:43:27 lipid panel, serum 2023 024 [facility], [address] [place] [address], 39431, 4 11:46:37 CBC 2023 024 [facility], [address] [place] [address], 46942, 4 15:23:54 TSH, serum or plasma 2023 024 [facility], [address] [place] [address], 63012, 4 15:23:40 BMP, serum or plasma 2023 024 [facility], [address] [place] [address], 07065, 4 11:46:37 urinalysis, dipstick 2022 023 [facility], [address] [place] [address], [address], 3 13:57:42 Referral None recorded. Procedures None recorded. Surgeries None recorded. Imaging MAMMO, screening, tomosynthes is, bilateral 2022 023 [facility]), [address], [place], [address], 3 16:06:19 LDCT, chest, for lung cancer screening - Please enroll this patient in the LDCT Lung Cancer Screening Program (for ordering, follow up and shared decision making)h as hx known nodules. Dr. Leavitt 09/04/212022 023 [facility], [address] [place], [address], 3 17:26:04 Medication Orders albuterol sulfate HFA 90 mcg/actuati on aerosol inhaler 2023 024 MICHELE [facility], [address] [place] [address], [address], [place], [place], [id number], 4 14:18:20 clotrimazol e 10 mg darian 2022 023 [email or web address] [facility], [address] [place], [address], [place], [place], [id number], 14:14:41 Patient TargetsNo targets recorded. Patient Instructions Encounter Date Encounter Id Patient Instructions Last Modified By Organization Details Last Modified Time 01/01/2023 [id number] high cholesterol lifestyle changes Not available 01/01/2023 14:40:56 advance directives: care instructions Not available 01/01/2023 14:40:57 preventing falls: care instructions Not available 01/01/2023 14:40:57 hearing loss: care instructions Not available 01/01/2023 14:40:56 well visit, over 65: care instructions Not available 01/01/2023 14:40:57 05/05/2024 [id number] - Get labs done before 8AM. [email or web address] [...] My Health To Do List {{go to Encover [email or web address] or call * sign up for maru text 2 quit or other stop smoking maru contact Bizporaee.gov}} {{go to [employer] or call s ign up for maru text 2 quit or other stop smoking maru contact smokee-SENS.gov*}} {{go to [employer] or call s ign up for maru text 2 quit or other stop smoking maru contact [employer].gov}} Counseling done {{Patient not ready to quit [...] {{adding exercise regular meals stress management impro [employer] sleep therapist identifying sponsor}} {{adding exercise regular meals stress management impro [employer] sleep therapist identifying sponsor}} My Geoloqi To Do List {{go to [employer] or call s ign up for maru text 2 quit or other stop smoking maru contact smokee-SENS.gov}} {{go to [employer] or call s ign up for maru text 2 quit or other stop smoking maru contact [employer].gov}} {{go to [employer] or call s ign up for maru text 2 quit or other stop smoking maru contact smokeiTherXee.gov}} Not available 05/03/2024 09:03:04 06/23/2024 [id number] [email or web address] Not available 06/26/2024 18:30:45 6 months/ [...] My Health To Do List {{go to [employer] or call * sign up for maru text 2 quit or other stop smoking maru contact smokee-SENS.gov}} {{go to quitGénie Numérique or call s ign up for maru text 2 quit or other stop smoking maru contact [employer].gov*}} {{go to quitGénie Numérique or call s ign up for maru text 2 quit or other stop smoking maru contact [employer].gov}} Counseling done {{Patient not ready to quit [...] My Health To Do List {{go to [employer] or call s ign up for maru text 2 quit or other stop smoking maru contact smokefrTerressentia.gov}} {{go to [employer] or call s ign up for maru text 2 quit or other stop smoking maru contact smokee-SENS.gov}} {{go to [employer] or call s ign up for maru text 2 quit or other stop smoking maru contact smokee-SENS.gov}} [email or web address] Not available 06/23/2024 15:00:31 Reason for [...] furth er confi rmati on Not Available [address], [address], 12/25/2022 16:23:00 12/26/19 23 12/25/2022 HGB A1C estimated average glucose 102.5 mg/dL Not Available [address], [address], 12/25/2022 16:23:00 12/26/19 23 12/25/2022 VITAM IN [...] er than 30 ng/mL . Not Available [address], [address], 12/25/2022 16:26:10 12/26/1912/25/2022 TSH TSH 1.79 uIU/m L 0.50-6 .00 The Ameri can Colle ge of Endoc rinol ogy and Ameri can Thyro id Assoc iatio n recom mend goal TSH value s betwe en 0.4-4 .0 mIU/m L. Not Available [address], [address], 12/25/2022 16:26:15 12/26/19 23 12/25/2022 BASIC METAB OLIC PANEL glucose 120 mg/dL 70-100 high Not Available [address], [address], 12/25/2022 16:33:09 12/26/19 23 12/25/2022 BASIC METAB OLIC PANEL BUN 7 mg/dL 7-18 Not Available [address], 90771, 12/25/2022 16:33:09 12/26/19 23 12/25/2022 BASIC METAB OLIC PANEL creatinine 0.8 mg/dL 0.8-1. 3 Not Available [address], [address], 12/25/2022 16:33:09 12/26/19 23 12/25/2022 BASIC METAB OLIC PANEL B/C 8.8 ratio Not Available [address], [address], 12/25/2022 16:33:09 12/26/19 23 12/25/2022 BASIC METAB [...] be used in pregn junaid. Not Available [address], [address], 12/25/2022 16:33:09 12/26/19 23 12/25/2022 BASIC METAB OLIC PANEL sodium 141 mmol/ L 136-14 5 Not Available [address], 75[address], 12/25/2022 16:33:09 12/26/19 23 12/25/2022 BASIC METAB OLIC PANEL potassium 3.6 mmol/ L 3.5-5. 1 Not Available [address], [address], 12/25/2022 16:33:09 12/26/19 23 12/25/2022 BASIC METAB OLIC PANEL chloride 98 mmol/ L 96-107 Not Available [address], [address], 12/25/2022 16:33:09 12/26/19 23 12/25/2022 BASIC METAB OLIC PANEL anion gap 11.7 5.0-15 .0 Not Available [address], 82454, 12/25/2022 16:33:09 12/26/19 23 12/25/2022 BASIC METAB OLIC PANEL CO2 31 mmol/ L 21-32 Not Available [address], [address]12, 12/25/2022 16:33:09 12/26/19 23 12/25/2022 BASIC METAB OLIC PANEL calcium 9.4 mg/dL 8.5-10 .3 Not Available [address], 04145, 12/25/2022 16:33:09 12/26/19 23 12/25/2022 LIPID PANEL cholesterol 178 mg/dL <200 mg/dl Rola able 200-2 39 mg/dl Borde rline High >240 mg/dl High Not Available [address], [address], 12/25/2022 16:33:11 12/26/19 23 12/25/2022 LIPID PANEL triglyceride s 76 mg/dL <150 mg/dL Mercedes l 150-1 99 mg/dL Borde rline High 200-4 99 mg/dL High >500 mg/dL Very High Not Available [address] [place], [address], 12/25/2022 16:33:11 12/26/19 23 12/25/2022 LIPID PANEL direct HDL 80 mg/dL <40 mg/dl - Major Risk for CHD >60 mg/dl - Negat wesley Risk for CHD Not Available [address] [place], [address], 12/25/2022 16:33:11 12/26/19 23 12/25/2022 DIREC T [...] r is not braxton liang. Not Available [address], [address], 12/25/2022 16:33:14 01/02/20 23 01/01/2023 POC UA glu UA NEGATI VE Not Available [facility] [address] [place] [address], 84[address], 01/01/2023 13:57:42 01/02/20 23 01/01/2023 POC UA clarity UA CLEAR Not Available [facility] [address] [place] [address], 36[address], 01/01/2023 13:57:42 01/02/20 23 01/01/2023 POC UA uro UA 0.2000 Not Available [facility] [address] [place] [address], 51660, 01/01/2023 13:57:42 01/02/20 23 01/01/2023 POC UA ket UA NEGATI VE Not Available [facility] [address] [place] [address], 55779, 01/01/2023 13:57:42 01/02/20 23 01/01/2023 POC UA pro UA NEGATI VE Not Available [facility] [address] [place] [address], 71771, 01/01/2023 13:57:42 01/02/20 23 01/01/2023 POC UA nit UA NEGATI VE Not Available [facility] [address] [place] [address], 43639, 01/01/2023 13:57:42 01/02/20 23 01/01/2023 POC UA rebekah UA NEGATI VE Not Available [facility] [address] [place] [address], 00285, 01/01/2023 13:57:42 01/02/20 23 01/01/2023 POC UA pH UA 7.0000 Not Available [facility] [address] [place] [address], 36249, 01/01/2023 13:57:42 01/02/20 23 01/01/2023 POC UA SG UA 1.0200 Not Available [facility] [address] [place] [address], 34376, 01/01/2023 13:57:42 01/02/20 23 01/01/2023 POC UA color UA YELLOW Not Available [facility] [address] [place] [address], 52977, 01/01/2023 13:57:42 01/02/20 23 01/01/2023 POC UA blo UA NEGATI VE Not Available [facility] [address] [place] [address], 34967, 01/01/2023 13:57:42 01/02/20 23 01/01/2023 POC UA bren UA NEGATI VE Not Available [facility] [address] [place] [address], 11176, 01/01/2023 13:57:42 02/05/20 24 02/05/2024 HGB A1C [...] furth er confi rmati on Not Available [address], 77[address], 02/05/2024 15:16:31 02/05/20 24 02/05/2024 HGB A1C estimated average glucose 105.4 mg/dL Not Available [address], 09991, 02/05/2024 15:16:31 02/05/20 24 02/05/2024 CBC WBC 7.83 K/??L 3.98-1 0.04 Not Available [address], 35984, 02/05/2024 15:23:54 02/05/20 24 02/05/2024 CBC RBC 4.36 M/??L 3.93-5 .22 Not Available [address], 26385, 02/05/2024 15:23:54 02/05/20 24 02/05/2024 CBC HGB 14.3 g/dL 11.2-1 5.7 Not Available [address], 04953, 02/05/2024 15:23:54 02/05/20 24 02/05/2024 CBC HCT 41.8 % 34.1-4 4.9 Not Available [address], 69731, 02/05/2024 15:23:54 02/05/20 24 02/05/2024 CBC MCV 95.9 fL 79.4-9 4.8 high Not Available [address], 38751, 02/05/2024 15:23:54 02/05/20 24 02/05/2024 CBC MCH 32.8 pg 25.6-3 2.2 high Not Available [address], 94151, 02/05/2024 15:23:54 02/05/20 24 02/05/2024 CBC MCHC 34.2 g/dL 32.2-3 5.5 Not Available [address], 02657, 02/05/2024 15:23:54 02/05/20 24 02/05/2024 CBC plt 225 K/??L 182-36 9 Not Available [address], 84395, 02/05/2024 15:23:54 02/05/20 24 02/05/2024 CBC MPV 10.8 fL 9.4-12 .3 Not Available [address], 31493, 02/05/2024 15:23:54 02/05/20 24 02/05/2024 CBC neut% 71.8 % 34.0-7 1.1 high Not Available [address], 77026, 02/05/2024 15:23:54 02/05/20 24 02/05/2024 CBC neut# 5.62 1.56-6 .13 Not Available [address], 54868, 02/05/2024 15:23:54 02/05/20 24 02/05/2024 CBC lymph % 20.9 % 19.3-5 1.7 Not Available [address], 47021, 02/05/2024 15:23:54 02/05/20 24 02/05/2024 CBC lymph # 1.64 K/??L 1.18-3 .74 Not Available [address], 81075, 02/05/2024 15:23:54 02/05/20 24 02/05/2024 CBC mono% 5.6 % 4.7-12 .5 Not Available [address], 46701, 02/05/2024 15:23:54 02/05/20 24 02/05/2024 CBC mono# 0.44 0.24-0 .56 Not Available [address], 55246, 02/05/2024 15:23:54 02/05/20 24 02/05/2024 CBC eo% 0.8 % 0.7-5. 8 Not Available [address], 16199, 02/05/2024 15:23:54 02/05/20 24 02/05/2024 CBC eo# 0.06 0.04-0 .36 Not Available [address], 29146, 02/05/2024 15:23:54 02/05/20 24 02/05/2024 CBC baso% 0.6 % 0.1-1. 2 Not Available [address], 04632, 02/05/2024 15:23:54 02/05/20 24 02/05/2024 CBC baso# 0.05 0.00-0 .08 Not Available [address], 94044, 02/05/2024 15:23:54 02/05/20 24 02/05/2024 CBC RDW-CV 12.3 % 11.7-1 4.4 Not Available [address], 939[address], 02/05/2024 15:23:54 02/05/20 24 02/05/2024 CBC Ig% 0.300 % 0.000- 1.500 Ig % >0.5 Indic ates possi ble Left Shift Not Available [address], 55096, 02/05/2024 15:23:54 02/05/20 24 02/05/2024 CBC Ig# 0.020 0.000- 0.093 Not Available [address], 31352, 02/05/2024 15:23:54 02/05/20 24 02/05/2024 CBC NRBC% 0.0 % 0.0-0. 2 Not Available [address], 98841, 02/05/2024 15:23:54 02/05/20 24 02/05/2024 CBC NRBC# 0.000 0.000- 0.012 Not Available [address], 50123, 02/05/2024 15:23:54 02/05/20 24 02/08/2024 BASIC METAB OLIC PANEL glucose 113 mg/dL 70-100 high Not Available [address], 20[address], 02/08/2024 11:46:36 02/05/20 24 02/08/2024 BASIC METAB OLIC PANEL BUN 16 mg/dL 7-18 Not Available [address], 40452, 02/08/2024 11:46:36 02/05/20 24 02/08/2024 BASIC METAB OLIC PANEL creatinine 0.7 mg/dL 0.8-1. 3 low Not Available [address], 20316, 02/08/2024 11:46:36 02/05/20 24 02/08/2024 BASIC METAB OLIC PANEL B/C 22.9 ratio Not Available [address], 70823, 02/08/2024 11:46:36 02/05/20 24 02/08/2024 BASIC METAB [...] be used in pregn junaid. Not Available [address], [address], 02/08/2024 11:46:36 02/05/20 24 02/08/2024 BASIC METAB OLIC PANEL sodium 142 mmol/ L 136-14 5 Not Available [address], 19263, 02/08/2024 11:46:36 02/05/20 24 02/08/2024 BASIC METAB OLIC PANEL potassium 4.5 mmol/ L 3.5-5. 1 Not Available [address], 55956, 02/08/2024 11:46:36 02/05/20 24 02/08/2024 BASIC METAB OLIC PANEL chloride 102 mmol/ L 96-107 Not Available [address], 68041, 02/08/2024 11:46:36 02/05/20 24 02/08/2024 BASIC METAB OLIC PANEL anion gap 11.9 5.0-15 .0 Not Available [address], 16989, 02/08/2024 11:46:36 02/05/20 24 02/08/2024 BASIC METAB OLIC PANEL CO2 28 mmol/ L 21-32 Not Available [address], 39912, 02/08/2024 11:46:36 02/05/20 24 02/08/2024 BASIC METAB OLIC PANEL calcium 9.5 mg/dL 8.5-10 .3 Not Available [address], 90102, 02/08/2024 11:46:36 02/05/20 24 02/08/2024 LIPID PANEL cholesterol 204 mg/dL <200 mg/dl Rola able 200-2 39 mg/dl Borde rline High >240 mg/dl High Not Available [address], [address], 02/08/2024 11:46:37 02/05/20 24 02/08/2024 LIPID PANEL triglyceride s 63 mg/dL <150 mg/dL Mercedes l 150-1 99 mg/dL Borde rline High 200-4 99 mg/dL High >500 mg/dL Very High Not Available [address], [address], 02/08/2024 11:46:37 02/05/20 24 02/08/2024 LIPID PANEL direct HDL 72 mg/dL <40 mg/dl - Major Risk for CHD >60 mg/dl - Negat wesley Risk for CHD Not Available [address], [address], 02/08/2024 11:46:37 02/05/20 24 02/08/2024 DIREC T [...] 0-1 risk facto r is not braxton taevra. Not Available [address], [address], 02/08/2024 11:46:38 02/05/20 24 02/08/2024 TSH TSH 1.32 uIU/m L 0.50-6 .00 The Ameri can Colle ge of Endoc rinol ogy and Mameeri can Thyro id Assoc iatio n recom mend goal TSH value s betwe en 0.4-4 .0 mIU/m L. Not Available [address], [address], 02/08/2024 15:23:40 02/29/20 24 03/01/2024 FREE T4 free T4 0.71 NG/dL 0.75-1 .54 low Not Available [address], [address], 03/01/2024 10:48:50 02/29/20 24 03/01/2024 VITAM IN [...] er than 30 ng/mL . Not Available [address], 28238, 03/01/2024 10:55:50 02/29/20 24 03/01/2024 TSH TSH 2.30 uIU/m L 0.50-6 .00 The Ameri can Colle ge of Endoc rinol ogy and Ameri can Thyro id Assoc iatio n recom mend goal TSH value s betwe en 0.4-4 .0 mIU/m L. Not Available [address], 93462, 03/01/2024 11:03:38 05/31/20 24 05/31/2024 FREE T4 free T4 0.80 NG/dL 0.75-1 .54 Not Available [address], [address]87, 05/31/2024 11:52:26 05/31/20 24 05/31/2024 TSH TSH 4.12 uIU/m L 0.50-6 .00 The Ameri can Colle ge of Endoc rinol ogy and Ameri can Thyro id Assoc iatio n recom mend goal TSH value s betwe en 0.4-4 .0 mIU/m L. Not Available [address], [address], 05/31/2024 12:31:07 05/31/20 24 06/01/2024 TOTAL T3 total T3 1.28 NG/mL 0.70-1 .70 Not Available [address], [address], 06/01/2024 11:09:06 05/31/20 24 06/01/2024 FSH FSH 70.6 mIU/m L Male: 1.0 - 42.5 mIU/m L Femal e Ovula ting: Folli cular Phase : 2.7 - 15.4 mIU/m L Peak: 3.9 - 22.0 mIU/m L Lutea l Phase : 1.0 - 14.4 mIU/m L Postm enopa usal: 25.0 - 160.0 mIU/m L Not Available [address], [address]69, 06/01/2024 11:09:07 05/31/20 24 06/01/2024 LIPID PANEL cholesterol 219 mg/dL <200 mg/dl Rola able 200-2 39 mg/dl Borde rline High >240 mg/dl High Not Available [address], 628[address], 06/01/2024 14:38:40 05/31/20 24 06/01/2024 LIPID PANEL triglyceride s 150 mg/dL <150 mg/dL Mercedes l 150-1 99 mg/dL Borde rline High 200-4 99 mg/dL High >500 mg/dL Very High Not Available [address], [address], 06/01/2024 14:38:40 05/31/20 24 06/01/2024 LIPID PANEL direct HDL 70 mg/dL <40 mg/dl - Major Risk for CHD >60 mg/dl - Negat wesley Risk for CHD Not Available [address], [address], 06/01/2024 14:38:40 05/31/20 24 06/01/2024 LDL - [...] r is not braxton tavera. Not Available [address], [address]658, 06/01/2024 14:38:42 05/31/20 24 06/01/2024 BASIC METAB OLIC PANEL glucose 104 mg/dL 70-100 high Not Available [address], [address]49, 06/01/2024 15:00:52 05/31/20 24 06/01/2024 BASIC METAB OLIC PANEL BUN 14 mg/dL 7-18 Not Available [address], 32940, 06/01/2024 15:00:52 05/31/20 24 06/01/2024 BASIC METAB OLIC PANEL creatinine 0.8 mg/dL 0.8-1. 3 Not Available [address], 18770, 06/01/2024 15:00:52 05/31/20 24 06/01/2024 BASIC METAB OLIC PANEL B/C 17.5 ratio Not Available [address], 59538, 06/01/2024 15:00:52 05/31/20 24 06/01/2024 BASIC METAB [...] be used in pregn junaid. Not Available [address], 11307, 06/01/2024 15:00:52 05/31/2006/01/2024 BASIC METAB OLIC PANEL sodium 144 mmol/ L 136-14 5 Not Available [address], [address], 06/01/2024 15:00:52 05/31/2006/01/2024 BASIC METAB OLIC PANEL potassium 4.1 mmol/ L 3.5-5. 1 Not Available [address], 09008, 06/01/2024 15:00:52 05/31/2006/01/2024 BASIC METAB OLIC PANEL chloride 104 mmol/ L 96-107 Not Available [address], 81901, 06/01/2024 15:00:52 05/31/2006/01/2024 BASIC METAB OLIC PANEL anion gap 9.8 5.0-15 .0 Not Available [address], 89009, 06/01/2024 15:00:52 05/31/2006/01/2024 BASIC METAB OLIC PANEL CO2 30 mmol/ L 21-32 Not Available [address], 21275, 06/01/2024 15:00:52 05/31/2006/01/2024 BASIC METAB OLIC PANEL calcium 9.7 mg/dL 8.5-10 .3 Not Available [address], [address]19, 06/01/2024 15:00:52 05/31/20 24 06/07/2024 IGF 1, LC/MS igf 1, lc/MS 129 NG/mL 34-245 Not Available [facility] [address], [address], 06/07/2024 14:43:26 05/31/2006/07/2024 IGF 1, LC/MS Z score (female) 0.4 SD -2.0 - +2.0 This test was devel oped and its arnold tical perfo rmanc e kamari cteri stics have been deter mined by [facility]. It has not been clear ed or appro ariel by FDA. This assay has been valid ated pursu ant to the CLIA regul ation s and is used for clini laney purpo ses. Not Available [facility] [address], [place], [address], 06/07/2024 14:43:26 05/31/20 24 06/07/2024 ACTH, PLASM A acth, plasma 18 pg/mL 6-50 Refer ence range appli es only to speci mens colle cted betwe en 7am-1 0am. Not Available [facility] [address], [place], [address], 06/07/2024 14:43:26 05/31/2006/07/2024 PROLA CTIN prolactin 9.4 NG/mL normal Refer ence Range Femal es Non-p regna nt 3.0-3 0.0 Pregn ant 10.0- 209.0 Postm enopa usal 2.0-2 0.0 Not Available [facility] [address], [address], 06/07/2024 14:43:27 04/24/2004/24/2023 LDCT, chest , for lung cance r scree luisito No observ ation record ed. [facility] [address] [facility], [place], [address], 04/28/2023 17:05:43 04/27/20 23 04/27/2023 MAMMO , [...] PM Reji francis Physic frank: Jai mckee [facility] [address], [place], [address], 04/27/2023 16:30:52 Result Notes None recorded. Problems Name Problem SNOMED Code Status Onset Date Resolution Date Notes Provider Name and Address Organization Details Recorded Time Joint pain 47910767 Completed 01/01/2023 CATHERINE Garza [address] [place] [address], [phone] , [facility] 3 14:47:10 Backache 670480402 Completed 11/15/2014 Yeny Elizabeth NP [address] [place] [address], [phone] , [facility] 5 20:40:22 Sinusiti s [id number] Completed 11/15/2014 Yeny Elizabeth NP [address] [place] [address], [phone] , [facility] 5 20:43:58 Sleep apnea 85508254 Active Not Available [facility] 4 00:24:30 Backache 458355815 Active Not Available [facility] 4 00:24:29 Impaired fasting glycemia 316827794 Active 2017 Not Available [facility] 4 00:24:29 Vitamin D deficien cy 38568043 Active 2020 Not Available [facility] 4 00:24:29 Multiple nodules of lung 403007895 Active 2020 non-canc erous. followed by Dr. Julio lawrence. 09/04/21 note - surveill ance is complete . Not Available [facility] 4 00:24:30 Chronic obstruct wesley pulmonar y disease 12493358 Active 2020 PFT 1 Not Available [facility] 4 00:24:29 Osteoart hritis of right hip joint 23138124833 9107 Active 2021 follows w/ [facility]. Not Available [facility] 4 00:24:29 History of subtotal thyroide ctomy 975655388 Active 2021 Not Available [facility] 4 00:24:30 Decrease d body mass index 5969611 Completed 202101/01/2023 CATHERINE Garza [address] [place] [address], [phone] , [facility] 3 13:54:15 Bone density finding 889048322 Active 2022 Not Available [facility] 4 00:24:29 Major depressi on, melancho lic type 335684964 Active 2022 Not Available [facility] 4 00:24:29 History of partial resectio n of colon 683991896 Active 2022 Not Available [facility] 4 00:24:30 Mixed hyperlip idemia 172812087 Active Not Available [facility] 4 00:24:29 Head and neck swelling 987616019 Completed 200206/29/2013 Not Available [facility] 3 02:04:11 Single major depressi ve episode, mild Completed 200611/15/2014 Yeny Elizabeth NP [address] [place] [address], [address] , [facility] 5 20:42:37 Benign neoplasm of skin of trunk, excludin g scrotum Completed 200506/29/2013 Not Available [facility] 3 02:04:05 Essentia l hyperten camryn 63150741 Active Not Available [facility] 4 00:24:30 Chronic nonalcoh olic liver disease 05739399 Active Not Available [facility] 4 00:24:30 Gastroes ophageal reflux disease 923626952 Active Not Available [facility] 4 00:24:29 Non-toxi c uninodul ar goiter [id number] Completed 11/15/2014 Yeny Elizabeth NP [address] [place] [address], [phone] , [facility] 5 20:42:37 Anxiety state [id number] Completed 11/15/2014 Yeny Elizabeth NP [address] [place] [address], [phone] , [facility] 5 20:42:37 Acute pharyngi tis [id number] Completed 06/29/2013 Not Available [facility] 3 02:01:17 Allergic rhinitis [id number] Active Not Available [facility] 4 00:24:30 Epidermo id cyst of skin [id number] Completed 200506/29/2013 Not Available [facility] 3 02:02:53 Elevated blood-pr essure reading without diagnosi s of hyperten camryn [id number] Completed 200211/15/2014 Yeny Elizabeth NP [address] [place] [address], [id number] , [facility] 5 20:40:22 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 Completed 11/15/2014 Yeny Elizabeth NP [address] [place] [address], [phone] , [facility] 5 20:40:22 Organic sleep disorder 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 Completed 11/15/2014 Yeny Elizabeth NP [address] [place] [address], [address] , [facility] 5 20:40:22 Acute bronchit is 61580938 Completed 06/29/2013 Not Available [facility] 3 02:01:36 Malaise and fatigue 171658021 Completed 06/29/2013 Not Available [facility] 3 02:00:18 Blood in urine 11508686 Completed 200511/15/2014 Yeny Elizabeth NP [address] [place] [address], [address] , [facility] 5 20:43:58 Carpal tunnel syndrome 30871119 Active 2003 surgery 2010 Not Available [facility] 4 00:24:30 Kidney stone 02037764 Completed 200701/01/2023 CATHERINE Garza [address] [place] [address], [address] , [facility] 3 14:47:07 Ureteric stone 02427680 Completed 200511/15/2014 Yeny Elizabeth NP [address] [place] [address], [address] , [facility] 5 20:43:58 Right upper quadrant pain 700390342 Completed 06/29/2013 Not Available [facility] 3 02:03:18 Sleep disorder 45303030 Completed 11/15/2014 Yeny Elizabeth NP [address] [place] [address], [address] , [facility] 5 20:40:22 Orthosta tic hypotens ion 65286542 Completed 11/15/2014 Yeny Elizabeth NP [address] [place], [address] , [facility] 5 20:40:22 Lymphade nopathy 56011430 Completed 200206/29/2013 Not Available [facility] 3 02:03:13 Tobacco user 395564926 Completed 200211/15/2014 Yeny Elizabeth NP [address] [place], [address] , [facility] 5 20:42:37 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 200511/15/2014 Yeny Elizabeth NP [address] [place] [address], [address] , [facility] 5 20:43:58 Sprain of ankle 92087331 Completed 200406/29/2013 Not Available [facility] 3 02:02:51 Syncope and collapse 195616394 Completed 11/15/2014 Yeny Elizabeth NP [address] [place] [address], [address] , [facility] 5 20:40:22 Joint pain in ankle and foot Completed 200406/29/2013 Not Available [facility] 3 02:01:26 Acute sinusiti s 38984057 Completed 06/29/2013 Not Available [facility] 3 02:02:20 Finding by method 103713160 Completed 200206/29/2013 Not Available [facility] 3 02:01:56 Breast lump 39757301 Completed 200211/15/2014 Yeny Elizabeth NP [address] [place] [address], [address] , [facility] 5 20:40:22 Common cold 93691534 Completed 06/29/2013 Not Available [facility] 3 02:00:28 Mammogra phy abnormal 404937131 Completed 200611/15/2014 Yeny Elizabeth NP [address] [place] [address], [address] , [facility] 5 20:45:31 Idiopath ic peripher al neuropat hy 56817000 Completed 200711/15/2014 Yeny Elizabeth NP [address] [place] [address], [address] , [facility] 5 20:42:37 On examinat ion - a rash Completed 06/29/2013 Not Available [facility] 3 02:00:49 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 Not Available [facility] 4 00:24:30 Dysphagi a 96321755 Completed 11/15/2014 Yeny Elizabeth NP [address] [place] [address], [address] , [facility] 5 20:40:22 Abnormal cervical Papanico laou smear 069278343 Completed 200711/15/2014 Yeny Elizabeth NP [address] [place] [address], , [facility] 5 20:55:49 Non-orga evelyn sleep disorder 039905958 Completed 200511/15/2014 Yeny Elizabeth NP [address] [place] [address], , [facility] 5 20:40:22 Open wound of scalp 604064193 Completed 06/29/2013 Not Available [facility] 3 02:04:18 Low back pain 157727705 Completed 01/01/2023 CATHERINE Garza [address] [place] [address], [address] , [facility] 3 14:47:05 Hypothyr oidism 30699911 Completed 200211/15/2014 Yeny Elizabeth NP [address] [place] [address], [address] , [facility] 5 20:42:37 Mononeur itis 36766781 Completed 200701/01/2023 CATHERINE Garza [address] [place] [address], [address] , [facility] 3 14:47:13 Abnormal findings on diagnost ic imaging of skull and head 397058019 Active Not Available [facility] 4 00:24:29 Pain in limb 46448610 Completed 200406/29/2013 Not Available [facility] 3 02:00:56 Heartbur n 17494073 Completed 06/29/2013 Not Available [facility] 3 02:03:55 Difficul ty speaking Completed 11/15/2014 Yeny Elizabeth NP [address] [place], [address] , [facility] 5 20:40:22 Notes:Some problems listed i n Documents: #[id number], #[id number], #[id number], #[id number], #[id number], #[id number] could not be added to this patient's chart. Please review these documents and add these problems to the patient's chart manually as needed. Problem Notes None recorded. Procedures Surgical History Date Name Laterality Status Provider Name and Address Organization Details Recorded Time 024 Smoking cessation counseling completed Rosa Tran LPN [facility] 06/21/2024 11:57:13 024 Smoking cessation counseling completed Rosa Tran LPN [facility] 05/03/2024 09:03:04 023 Smoking cessation counseling cancelled Rayna Stapleton [facility] 06/29/2023 09:58:39 023 Smoking cessation counseling cancelled Rosa Tran LPN [facility] 03/31/2023 14:40:47 023 Smoking cessation counseling completed CATHERINE Garza [address] [place], [address], [facility] 01/01/2023 14:12:24 023 Medicare Wellness Visit completed Gisselle Cid MA [facility] 01/01/2023 13:36:59 022 Smoking cessation counseling completed Gisselle Cid MA [facility] 05/16/2022 14:20:29 022 Smoking cessation counseling completed Everardo Vazquez MD [address] [place], [address], [facility] 04/03/2022 10:41:44 022 Medicare Wellness Visit completed Xiomy Gooden [facility] 12/23/2021 13:50:31 022 Alcohol use screening completed Xiomy Gooden [facility] 12/23/2021 13:50:31 022 Cardiovascular disease risk reduction counseling completed Xiomy Gooden [facility] 12/23/2021 13:50:31 021 Smoking cessation counseling completed Loreta Gloria RN [facility] 07/18/2021 11:27:55 021 Smoking cessation counseling completed Hailey Fleming [facility] 06/05/2021 10:57:46 021 partial lobectomy of thyroid completed Yeny Elizabeth NP [address] [place], [address], [facility] 06/02/2021 12:35:36 021 Biopsy of thyroid completed Dixie Underwood LPN [facility] 01/03/2021 14:35:31 021 Medicare Wellness Visit completed Baldemar Thompson [facility] 12/06/2020 08:49:12 021 COPD Screening completed Baldemar Thompson [facility] 12/06/2020 11:33:22 021 prevention-cardio vascular risk reduction counseling completed Baldemar Thompson [facility] 12/06/2020 08:49:12 021 prevention-annual alcohol misuse screening completed Baldemar Thompson [facility] 12/06/2020 08:49:12 021 biopsy of thyroid completed Dixie Underwood LPN [facility] 12/20/2020 15:57:05 021 Medicare Wellness Visit completed Baldemar Thompson [facility] 08/21/2020 08:16:38 021 prevention-cardio vascular risk reduction counseling completed Baldemar Thompson CMA [facility] 08/21/2020 08:16:38 021 prevention-annual alcohol misuse screening completed Baldemar Thompson CMA [facility] 08/21/2020 08:16:38 019 Nebulizer Tx completed Shaquilleirmayang Archer [facility] 09/14/2018 18:02:56 014 Other (specify) completed Yeny Elizabeth NP [address] [place], [address], [facility] 11/15/2014 20:37:49 012 Suture/staple Removal completed Yeny Elizabeth NP [address] [place], [address], [facility] 09/19/2011 17:19:53 011 Carpal Tunnel Surgery completed Yeny Elizabeth NP [address] [place], [address], [facility] 09/12/2011 12:33:44 004 completed Not Available [facility] 06:05:52 Back Surgery completed Yeny alexandre NP [address] [place], [address], [facility] 04/10/2015 11:56:53 repair of tendon completed Dixie Underwood LPN [facility] 12/20/2020 15:57:18 Imaging Results Imaging Date Name Status LastModified by Organiz ation Details LastModified Time 04/24/2023 LDCT, chest, for lung cancer screening completed [facility] [address] [place], [address], 04/28/2023 17:05:43 04/27/2023 MAMMO, screening, tomosynthesis, bilateral completed rafi [facility] (Imaging) [address], [place], [address], 04/27/2023 16:30:52 Procedure Notes None recorded. Medical Equipment None Reported. Allergies Allergen ID Allergen Name Allergen Category Reaction Reaction Severity Criticality Documentation Date Start Date Code Code System Note Provider Name and Address Organization Details Recorded Time [id number] metoprolo l Not available Not available Not available Not available 01/24/2013 6918 RxNorm marito cardi a. Yeny Elizabeth NP [facility] [place], [address], [facility] 3 11:47:43 114953 spironola ctone medicatio n dizziness Not available Not available 01/25/2016 9997 RxNorm Yeny Elizabeth NP [address] [place] [address] [place], [address], [facility] 6 16:15:07 47502 penicilli n G Not available itching Not available Not available 07/30/2009 7980 RxNorm insid e of skin Not Available [facility] 1 06:05:20 492170 bupropion Not available other Not available Not available 01/26/2017 09892 RxNorm nonst op crypopeye gYeny NP [address] [place] [address] [place], [address], [facility] 7 16:46:02 90266 hydrochlo rothiazid e medicatio n other severe Not available 10/25/2011 5487 RxNorm ortho stasi s and synco pe Yeny Elizabeth NP [address] [place], [place] [address]Bel[place], [address], [facility] 2 18:26:45 64465 amlodipin e medicatio n other severe Not available 10/25/2011 50852 RxNorm ortho stasi s and synco pe Yeny Elizabeth NP [address] [place] [address] [place], [address], [facility] 2 18:26:45 49846 lisinopri l medicatio n cough Not available Not available 10/28/2011 23325 RxNorm Yeny Elizabeth NP [address] [place], [address], [facility] 2 11:17:27 10675 Diovan medicatio n other mild Not available 11/10/2011 44531 2 RxNorm diarr hea and insom caridad Yeny Elizabeth, ANITRA [address] [place] [address], [facility], [address], [facility] 2 11:50:20 Medications Name Sig Start Date [...] Not Available Not Available No [facility] 59[facility] (PF) 45 mcg (15 mcg x 3)/0.5 mL intramusc ular syringe inject 0.5 millilit er intramus cularly active Not Available Not Available No t Available fluticaso ne 113 mcg-salme terol 14 mcg/actua tion breath activated powdr INHALE 1 PUFF BY MOUTH EVERY 12 HOURS active Not Available Not Available No t Available [facility] 6194-2317 (PF) 45 mcg(15 mcg x 3)/0.5 mL [...] Updated DateTime 3 161.29 cm 20 kg/m2 37037.3 3 g 56 /min 142 mm[Hg] 82 mm[Hg] Gisselle Cid [facility] 3 13:45:40 Date Recorded Systolic blood pressure Diastolic blood pressure Provider Name and Address Organization Details Last Updated DateTime 01/01/2023 144 mm[Hg] 82 mm[Hg] CATHERINE Garza [address] [place] [address], [address], [facility] 01/01/2023 14:44:45 Date Recorded Heart rate Systolic blood pressure Diastolic blood pressure Provider Name and Address Organization Details Last Updated DateTime 05/01/2023 52 /min 131 mm[Hg] 86 mm[Hg] Jaida Rosales [facility] 05/01/2023 14:27:03 Date Recorded Body height Heart rate Systolic blood pressure Diastolic blood pressure Provider Name and Address Organization Details Last Updated DateTime 05/18/2023 161.29 cm 50 /min 164 mm[Hg] 76 mm[Hg] Jaimee Lowe RN BSN [facility] 05/18/2023 11:57:49 Date Recorded Body height Provider Name an d Address Organization Details Last Updated DateTime 06/29/2023 161.29 cm Rayna Stapleton [facility] 06/29/2023 09:58:50 Date Recorded Body height Body mass index (BMI) Body weight Heart rate Systolic blood pressure Diastolic blood pressure Provider Name and Address Organization Details Last Updated DateTime 4 161.29 cm 20.3 kg/m2 19492.1 1 g 52 /min 128 mm[Hg] 78 mm[Hg] Minerva Soto [facility] 4 13:56:26 Date Recorded Body height Body mass index (BMI) Body weight Heart rate Systolic blood pressure Diastolic blood pressure Provider Name and Address Organization Details Last Updated DateTime 4 160.02 cm 19.2 kg/m2 48856.4 1 g 49 /min 121 mm[Hg] 65 mm[Hg] Rosa Tran LPN [facility] 4 08:51:37 Date Recorded Body height Body mass index (BMI) Body weight Heart rate Systolic blood pressure Diastolic blood pressure Provider Name and Address Organization Details Last Updated DateTime 4 160.02 cm 19.6 kg/m2 86375.0 3 g 56 /min 136 mm[Hg] 74 mm[Hg] Rosa Tran LPN [facility] 4 13:55:04 Date Recorded Systolic blood pressure Diastolic blood pressure Provider Name and Address Organization Details Last Updated DateTime 01/28/2023 121 mm[Hg] 81 mm[Hg] CATHERINE Garza [address] [place] [address], [address] 02/06/2023 16:28:51 Date Recorded Systolic blood pressure Diastolic blood pressure Systolic blood pressure Diastolic blood pressure Provider Name and Address Organization Details Last Updated DateTime 05/21/2023 148 mm[Hg] 84 mm[Hg] 160 mm[Hg] 97 mm[Hg] [facility] 3 15:52:51 Date Recorded Systolic blood pressure Diastolic blood pressure Systolic blood pressure Diastolic blood pressure Provider Name and Address Organization Details Last Updated DateTime 05/22/2023 152 mm[Hg] 90 mm[Hg] 171 mm[Hg] 87 mm[Hg] Jatin Stapleton [facility] 3 15:53:30 Date Recorded Systolic blood pressure Diastolic blood pressure Provider Name and Address Organization Details Last Updated DateTime 07/27/2023 117 mm[Hg] 78 mm[Hg] Radha Saini [facility] 07/27/2023 14:36:24 Social History Question Answer Notes LastModified by Organization Details LastModified Time Tobacco Smoking Status Current Some Day Smoker PT currently smoking occasionally ALISSA Mulligan 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 6-10yearssinc elastcigarett e [email or web address] Information not available 06/05/2021 How Many Days [...] Many Years Have You Smoked Tobacco? 41 [email or web address] Information not available 06/05/2021 Do You Or [...] Td(adult) unspecified formulation 6 completed Not Available [facility] 09/26/2023 00:24:31 influenza, unspecified formulation 7 completed Not Available [facility] 09/26/2023 00:24:31 Influenza, split virus, trivalent, preservative 2 completed Not Available [facility] 08/27/2019 02:32:24 Tdap 3 completed Not Available [facility] 08/27/2019 02:28:48 Novel [id number] completed Not Available [facility] 08/27/2019 02:27:45 Influenza, split virus, trivalent, PF 3 completed Not Available [facility] 08/27/2019 02:18:58 Influenza, split virus, quadrivalent, PF 5 completed Not Available [facility] 08/27/2019 02:19:46 zoster live 5 completed Not Available [facility] 08/27/2019 02:19:45 influenza, unspecified formulation 6 completed Not Available [facility] 09/26/2023 00:24:31 influenza, unspecified formulation 7 completed Not Available [facility] 09/26/2023 00:24:31 Influenza, high-dose, quadrivalent, PF 0 completed Janee Bai LPN null, [facility] 05/28/2020 08:46:57 pneumococcal polysaccharide PPV23 0 completed BLANCA DOYLE NP [address] [place] [address], [address], [facility] 06/20/2020 15:02:02 Influenza, split virus, trivalent, preservative 0 completed Not Available [facility] 08/27/2019 02:17:47 COVID-19, mRNA, LNP-S, PF, 30 mcg/0.3 mL dose 1 completed Not Available [facility] 09/26/2023 00:24:30 COVID-19, mRNA, LNP-S, PF, 30 mcg/0.3 mL dose 1 completed Not Available [facility] 09/26/2023 00:24:30 Td (adult), 2 Lf tetanus toxoid, preservative free, adsorbed 3 completed CATHERINE Garza [address] [place] [address], [address], [facility] 01/02/2023 07:56:47 Influenza, high-dose, quadrivalent, PF 1 completed Not Available [facility] 09/26/2023 00:24:30 COVID-19, mRNA, LNP-S, PF, 30 mcg/0.3 mL dose 1 completed Not Available [facility] 09/26/2023 00:24:31 COVID-19, mRNA, LNP-S, PF, 30 mcg/0.3 mL dose 2 completed Not Available [facility] 09/26/2023 00:24:31 zoster recombinant 2 completed Not Available [facility] 09/26/2023 00:24:30 Influenza, split virus, quadrivalent, preservative 2 completed Not Available [facility] 09/26/2023 00:24:30 Past Encounters Encounter ID Performer Location Encounter Start Date Encounter Closed Date Diagnosis/Indication Diagnosis SNOMED-CT Code Diagnosis ICD10 Code Diagnosis Note [id number] [facility], OFFICE [address] [place] [address] 10/06/2002 15:52:18 08/30/2008 02:02:29 [id number] Radiology , [address] [address] 10/06/2002 00:00:00 08/30/2008 02:02:29 [id number] Radiology , [address] [address] 10/06/2002 16:36:55 08/30/2008 02:02:29 [id number] LAB - [address] [address] 10/07/2002 15:46:52 08/30/2008 02:02:29 [id number] LAB - [address] [address] 11/08/2002 16:26:26 08/30/2008 02:02:29 [id number] [facility], OFFICE [address] [place] [address] 11/08/2002 15:17:41 08/30/2008 02:02:29 [id number] , [facility], OFFICE [address] [place] [address] 12/08/2002 15:25:39 08/30/2008 02:02:29 [id number] LAB - [facility] [address] [facility] [place] [address] 12/08/2002 15:51:11 08/30/2008 02:02:29 [id number] Radiology , [address] [place] [address] 12/20/2002 14:48:00 08/30/2008 02:02:29 [id number] Radiology , [address] [place] [address] 12/20/2002 00:00:00 08/30/2008 02:02:29 [id number] , [facility], OFFICE [address] [place] [address] 03/06/2003 10:13:04 08/30/2008 02:02:29 [id number] , [facility], OFFICE [address] [place] [address] 11/22/2003 12:59:27 11/22/2003 14:55:43 [id number] Radiology , [address] [address] 12/26/2003 15:20:58 08/30/2008 02:02:29 [id number] Radiology , [facility] [address] [place] [address] 12/26/2003 00:00:00 08/30/2008 02:02:29 [id number] [facility], OFFICE [address] [place] [address] 01/19/2004 14:11:55 01/19/2004 15:54:03 [id number] [facility], [address] [place] [address] 03/27/2004 10:47:20 03/28/2004 09:21:52 [id number] LAB - [address] [address] 10/15/2004 14:29:29 10/15/2004 14:29:57 [id number] , [facility], OFFICE [address] [place] [address] 12/11/2004 15:06:41 12/11/2004 17:50:16 [id number] Radiology , [facility] [place] [address] 12/11/2004 16:00:54 12/12/2004 08:22:27 [id number] Radiology , [facility] [place] [address] 12/11/2004 00:00:00 08/30/2008 02:02:29 [id number] Radiology , [facility] Annalisa [facility] QASIM Villalobos[address] 01/02/2005 14:50:32 08/30/2008 02:02:29 [id number] Radiology , [facility] Annalisa [facility] [place] [address] 01/02/2005 00:00:00 08/30/2008 02:02:29 [id number] FP [facility], OFFICE [address] [facility] [place] [address] 05/13/2005 14:40:24 08/30/2008 02:02:29 [id number] Radiology , [address] [place] [address] 05/13/2005 15:36:22 08/30/2008 02:02:29 [id number] Radiology , [address] [place] [address] 05/13/2005 00:00:00 08/30/2008 02:02:29 [id number] Physical Therapy, [address] [place] [address] 05/26/2005 12:56:12 08/30/2008 02:02:29 [id number] Physical Therapy, [address] [place] [address] 06/11/2005 15:17:06 08/30/2008 02:02:29 [id number] [facility], OFFICE [address] [facility] [place] [address] 12/24/2005 15:41:01 12/25/2005 08:44:40 [id number] [facility] [id number] 12/24/2005 15:41:01 12/25/2005 08:44:40 [id number] Radiology , [address] [place] [address] 01/15/2006 14:31:58 01/16/2006 09:26:07 [id number] Radiology , [address] [place] [address] 01/15/2006 00:00:00 08/30/2008 02:02:29 [id number] FP, [facility], OFFICE [address] [place] [address] 04/22/2006 15:44:51 04/23/2006 08:28:48 [id number] LAB - [facility] [address] [facility] [place] [address] 04/22/2006 16:15:54 04/22/2006 16:16:11 [id number] , [facility], OFFICE [address] [place] [address] 04/30/2006 15:02:17 05/01/2006 08:35:41 [id number] Radiology , [facility] 70 [place] [address] 05/31/2007 14:16:16 06/01/2007 09:45:04 [id number] Radiology , [facility] [address] [place] [address] 05/31/2007 00:00:00 08/30/2008 02:02:29 [id number] , [facility], OFFICE [address] [place] [address] 06/01/2007 15:54:13 08/30/2008 02:02:29 [id number] , [facility], OFFICE [address] [place] [address] 07/06/2007 15:59:53 08/30/2008 02:02:29 [id number] Radiology , [facility] [address] [place] [address] 07/06/2007 15:26:24 07/07/2007 09:44:25 [id number] Radiology , [address] [address] 07/06/2007 00:00:00 08/30/2008 02:02:29 [id number] Radiology , [facility] [address] [place] [address] 07/06/2007 17:40:10 07/07/2007 09:44:33 [id number] Radiology , [facility] [address] [place] [address] 07/06/2007 00:00:00 08/30/2008 02:02:29 [id number] FP, [facility], OFFICE [address] [place] [address] 12/20/2007 09:22:27 08/30/2008 02:02:29 [id number] LAB - [facility] 70 [facility] [place] [address] 12/20/2007 09:59:25 12/20/2007 09:59:40 [id number] Radiology , [facility] [place] [address] 06/24/2008 11:14:13 06/26/2008 09:15:42 [id number] LAB - [facility] 70 [facility] [place] [address] 07/24/2008 12:24:22 07/24/2008 12:24:31 [id number] FP, INC, OFFICE [address] [place] [address] 07/24/2008 11:11:08 08/30/2008 02:02:29 [id number] Radiology , [facility] 70 [place] [address] 07/30/2009 12:03:57 07/31/2009 14:41:39 [id number] FP, [facility], OFFICE [address] [place] [address] 6 07/30/2009 12:53:39 08/01/2009 09:41:41 [id number] FP, INC, OFFICE [address] [place] [address] 6 09/03/2009 10:36:11 09/05/2009 09:01:25 [id number] FP, [facility], OFFICE [address] [place] [address] 6 02/18/2010 16:06:54 02/21/2010 11:14:25 [id number] FP, [facility], OFFICE [address] [place] [address] 6 03/04/2010 10:51:19 03/05/2010 09:13:07 [id number] FP, INC, OFFICE [address] [place] [address] 6 04/08/2010 10:49:52 04/10/2010 12:33:40 [id number] FP, INC, OFFICE [address] [place] [address] 6 05/06/2010 11:06:59 05/09/2010 08:14:35 [id number] FP, INC, OFFICE [address] [place] [address] 6 09/04/2010 10:12:54 09/09/2010 09:54:47 [id number] Radiology , [facility] 70 [place] [address] 6 09/04/2010 11:35:48 09/05/2010 13:47:30 [id number] FP, [facility], OFFICE [address] [place] [facility] [place] [address] 02/17/2011 15:12:45 02/17/2011 16:18:23 [id number] FP, [facility], OFFICE [address] [place] [facility] [place] [address] 6 03/03/2011 11:25:18 03/03/2011 12:35:48 [id number] FP, [facility], OFFICE [address] [place] [facility] [place] [address] 6 05/05/2011 11:10:16 05/05/2011 12:18:53 [id number] FP, [facility], OFFICE [address] [place] [place] [facility] [address] 6 06/16/2011 11:24:27 06/16/2011 12:27:11 [id number] FP, C, OFFICE [address] [place] [facility] [place] [address] 6 09/12/2011 11:49:49 09/12/2011 12:53:46 [id number] FP, C, OFFICE [address] [place] [facility] [place] [address] 6 09/15/2011 10:11:06 09/15/2011 11:20:27 [id number] Radiology , C [address] [place] [facility] [place] [address] 09/15/2011 11:18:59 09/22/2011 11:25:46 [id number] Radiology , C [address] [place] [facility] [place] [address] 6 09/15/2011 11:22:42 09/22/2011 11:26:39 [id number] Radiology , C [address] [place] [facility] [address] 6 09/15/2011 13:02:14 09/22/2011 11:27:06 [id number] FP, [facility], OFFICE [address] [place] [facility] [place] [address] 6 09/19/2011 16:05:15 09/19/2011 17:14:17 [id number] FP, [facility], OFFICE [address] [place] [place] [facility] [address] 6 10/16/2011 11:04:47 10/16/2011 12:36:29 [id number] , [facility], OFFICE [address] [place] [facility] [place] [address] 6 10/23/2011 10:47:33 10/23/2011 11:31:44 [id number] , C, OFFICE [address] [place] [facility] [place] [address] 6 10/28/2011 10:53:53 10/28/2011 11:41:32 [id number] , [facility], OFFICE [address] [place] [facility] [place] [address] 11/10/2011 11:00:59 11/10/2011 12:05:22 [id number] , [facility], OFFICE [address] [place] [facility] [address] 6 12/22/2011 11:30:06 12/22/2011 12:11:38 [id number] Balbir Cruz MD Radiology , [facility] [address] [facility] [place] [facility] [place] [address] 05/03/2012 11:01:39 05/04/2012 10:48:40 [id number] Yeny Elizabeth NP , [facility], OFFICE [address] [place] [facility] [place] [address] 05/11/2012 11:43:11 05/11/2012 12:45:41 [id number] Stephy Mccloud CMA FP, [facility], OFFICE [address] [place] [facility] [place] [address] 6 05/13/2012 06:44:42 05/13/2012 16:24:11 [id number] Stacy cEheverria , [facility], OFFICE [address] [place] [facility] [place] [address] 6 10/11/2012 14:33:17 10/11/2012 17:18:16 [id number] Antonio Urbano MD Radiology , [facility] [address] [place] [facility] [place] [address] 10/18/2012 11:02:02 10/19/2012 10:11:53 [id number] Yeny Elizabeth NP FP, C, OFFICE [address] [place] [facility] [address] 6 11/29/2012 11:09:20 11/29/2012 12:09:21 [id number] Zoila Cooper , [facility], OFFICE [address] [place] [address] 6 12/27/2012 11:13:39 12/27/2012 12:12:31 [id number] ANITRA Guidry, [facility], OFFICE [address] [place] [address] 6 01/24/2013 10:58:06 01/24/2013 11:59:15 [id number] Jovita Cooper MA , [facility], OFFICE [address] [place] [address] 6 05/02/2013 10:58:25 05/02/2013 12:23:22 Acute bronchitis 28465726 Joint pain 85173753 Influenza vaccine needed 4496280442 [id number] [id number] Yeny Elizabeth NP , [facility], OFFICE [address] [place] [address] 6 12/26/2013 15:36:32 12/26/2013 16:51:55 Adult health examination [id number] see Risk Assessment and Lifestyle Change Counseling section above Allergic rhinitis 27094023 Backache 896370894 Sinusitis 87371255 Screening for malignant neoplasm of cervix 487303719 Thyroid nodule 127137526 [id number] Yeny Elizabeth NP , [facility], OFFICE [address] [place] [address] 6 01/22/2015 13:40:10 01/22/2015 14:50:12 Adult health examination [id number] see Risk Assessment and Lifestyle Change Counseling section above Benign ess ential hypertension 5197122 Blood pressure at goal Backache 663107878 Major depr ession, melancholic type 523820476 Gastroesop hageal reflux disease 108445531 Sleep apnea 91964143 [id number] Nimo HICKMAN, [facility], OFFICE [address] [place] [address] 6 04/10/2015 11:01:34 04/10/2015 12:19:45 Lifestyle 832182338 Benign ess ential hypertension 1378926 Blood pressure at goal Backache 068847312 Varicella vaccination 29454887 Influenza vaccine needed 5949978032 [id number] [id number] VICK, [facility], OFFICE [address] [place] [address] 6 04/27/2015 11:53:26 04/27/2015 12:51:23 Backache 259402150 Benign ess ential hypertension 5050158 Blood pressure at goal Will be getting another 24hr monitor by nephsarika cheng due to labile BP, difficult to control [id number] Rhianna Pabon LPN FP, [facility], OFFICE [address] [place] [address] 6 06/04/2015 11:08:23 06/04/2015 14:55:19 Tuberculosis screening 892824752 Z11.1 [id number] Rhianna Pabon LPN FP, C, OFFICE [address] [place] [address] 6 06/18/2015 11:15:27 06/18/2015 13:05:30 Tuberculosis screening 455313664 Z11.1 [id number] ANITRA Guidry, C, OFFICE [address] [place] [address] 6 07/26/2015 11:30:59 07/26/2015 12:23:47 Benign essential hypertension 8590894 I10 Blood pressure NOT at goal. [id number] ANITRA Guidry, [facility], OFFICE [address] [place] [address] 6 01/25/2016 15:49:01 01/29/2016 10:59:33 Adult health examination 710120555 Z00.00 see Risk Assessment and Lifestyle Change Counseling section above Benign ess ential hypertension 1238363 I10 Blood pressure NOT at goal. Mixed hyperlipidemia 267 242866 E78.2 [id number] Yeny Elizabeth NP FP, C, OFFICE [address] [place] [address] 6 02/29/2016 09:37:18 02/29/2016 10:27:55 Hand pain 21757248 M79.642 Benign ess ential hypertension 7118137 I10 Blood pressure NOT at goal. [id number] ANITRA Guidry, C, OFFICE [address] [place] [address] 6 07/28/2016 14:23:55 07/28/2016 15:14:02 Benign essential hypertension 1248361 I10 Blood pressure NOT at goal despite 3 agents. Can't tolerate spironolac tone. Mixed hyperlipidemia 267 155539 E78.2 Acute uppe r respiratory infection 91306730 J06.9 [id number] Yeny Elizabeth NP FP, [facility], OFFICE [address] [place] [address] 6 01/26/2017 15:38:43 01/26/2017 17:01:04 Adult health examination 150988903 Z00.00 see Risk Assessment and Lifestyle Change Counseling section above Benign ess ential hypertension 4405924 I10 Blood pressure at goal. Backache 662478308 M54.9 [id number] Yeny Elizabeth NP , [facility], OFFICE [address] [place] [address] 6 05/19/2017 15:23:45 05/19/2017 16:05:28 Cough 42655063 R05 Benign ess ential hypertension 5515677 I10 Blood pressure not at goal. [id number] Yeny Elizabeth NP , [facility], OFFICE [address] [place] [address] 6 06/26/2017 07:49:26 06/26/2017 08:38:01 Benign essential hypertension 0757160 I10 Blood pressure at goal [id number] MD VICK Cardenas, [facility], OFFICE [address] [place] [address] 6 02/16/2018 15:32:13 02/16/2018 16:54:41 Adult health examination 383875071 Z00.00 see Risk Assessment and Lifestyle Change Counseling section above Depression screening 171 189467 Z13.89 depression screening tool administer ed, entered into emr, scored and discussed, time greater than 7.5 minutes Benign ess ential hypertension 9721001 I10 Blood pressure at goal Cough 85834191 R05 Using ProAir occasional ly Screening for malignant neoplasm of colon 727300225 Z12.11 Referral for a DIRECT booked colonoscop y. This patient is a healthy ASA Class 1 or 2 patient (only mild systemic disease), or a STABLE, well controlled insulin dependent diabetic. They do not have serious cardiac disease ie NM/angiopl asty within 1 year, symptomati c CHF; renal failure with CKD 4 or 5; take Coumadin, Plavix, Aggrenox, etc. Sleep apnea 68444248 G47 .30 Please get back to me with name of Cpap provider, will update orders so you can use it again. Impaired f asting glycemia 353846782 R73.01 Blood sugar today 84, continue to monitor [id number] Walter López MD FP, [facility], OFFICE [address] [place] [address] 6 09/14/2018 17:17:47 09/16/2018 11:01:46 Mixed hyperlipidemia 561466740 E78.2 Benign ess ential hypertension 0260533 I10 Blood pressure at goal Cough 33975184 R05 Using ProAir occasional ly Backache 036952718 M54.9 Wheezing 04750091 R06.2 Normal grief reaction 27 8948333 F43.20 [id number] Boo Christine MD FP, [facility], OFFICE [address] [place] [address] 6 10/05/2018 15:20:09 10/05/2018 16:27:59 Benign essential hypertension 8671583 I10 Thyroid nodule 731944955 E04.1 Cough 47288748 R05 [id number] Walter López MD FP, [facility], OFFICE [address] [place] [address] 6 11/02/2018 16:39:52 11/03/2018 09:00:16 Benign essential hypertension 2800068 I10 [id number] Rupinder Eagle DNP, [employer] FP, [facility], OFFICE [address] [place] [address] 6 11/25/2019 13:48:50 11/28/2019 14:47:15 Urinary tract infectious disease 69565129 N39.0 Patient instructed to push fluids, to follow up for persistent or worsening symptoms or fever or back pain.Treat for presumptiv e infection w/ bactrim.Co nsider musculoske latal vs stone. If no improvemen t will need imaging and cultures. [id number] Yeny Elizabeth NP FP, [facility], OFFICE [address] [place] [address] 6 11/30/2019 15:08:40 12/02/2019 13:07:04 Low back pain 275377819 M54.5 Nausea 422479321 R11.0 Night sweats 80109984 R6 1 [id number] Rhianna Murray LPN , [facility], OFFICE [address] [place] [address] 6 05/25/2020 16:15:13 05/28/2020 13:23:56 Active or passive immunization 734832010 Z23 [id number] Lynda Stewart PA-C , [facility], OFFICE [address] [place] [address] 6 06/20/2020 09:51:52 06/22/2020 12:18:11 Abdominal pain 56162359 R10.9 New concern, unclear if all symptoms related to same cause, ? cystitis and/or kidney stones given lower abdominal pain with radiation to groin with back pain, POCT urine with trace leuks only, plan to send for culture. Mass palpated in periumbili laney area ? hernia, plan to obtain CT of abdomen and pelvis to further assess all concerns. Screening mammography 24 237105 Z12.31 Routine screening due, patient agreeable, would like to schedule with G, aware of wait time. Active or passive immunization 869841636 Z23 Depression screening 171 022138 Z13.31 - depression screening tool administer ed, entered into emr, scored and discussed, time greater than 7.5 minutes-Co ntinue sertraline [id number] Yeny Elizabeth NP , [facility], OFFICE [address] [place] [address] 6 07/03/2020 15:32:37 07/04/2020 18:49:34 Essential hypertension 54794582 I10 Major depr ession, melancholic type 880787660 F32.9 Multiple n odules of lung 557480791 R91.8 Liver mass 622939035 R16 .0 [id number] Boo Christine MD , [facility], OFFICE [address] [place] [address] 6 08/21/2020 11:04:42 08/21/2020 14:03:59 Essential hypertension 93162140 I10 Vitamin D deficiency 347 38638 E55.9 Thyroid nodule 671507149 E04.1 Multiple n odules of lung 735013710 R91.8 diffuse, bilateral Tremor 07584502 R25.1 L hand 4th & 5th fingers. [id number] , [facility], OFFICE [address] [place] [address] 10/23/2020 09:00:28 10/24/2020 16:08:20 Essential hypertension 30787600 I10 Mixed hyperlipidemia 267 086259 E78.2 Major depr ession, melancholic type 589419324 F32.9 sertraline 200mg daily. Multiple n odules of lung 115467896 R91.8 diffuse, bilateral Vitamin D deficiency 347 23267 E55.9 [id number] Yeny Elizabeth NP , [facility], OFFICE [address] [place] [address] 12/06/2020 11:27:07 12/07/2020 09:46:33 Essential hypertension 35748222 I10 Mixed hyperlipidemia 267 992401 E78.2 Chronic ob structive pulmonary disease 23820486 J44.9 Adult heal th examination 013050208 Z00.00 see Risk Assessment and Lifestyle Change Counseling section above Counseling 826078514 Z71 .9 including cardiovasc ular risk reduction counseling Depression screening 171 543681 Z13.31 depression screening tool administer ed, entered into emr, scored and discussed, time greater than 7.5 minutes. Screening reviewed with pt. treated for depression with sertraline . Screening for alcohol abuse 598609381 Z13.39 [id number] Everardo Vazquez MD Endocrino logy, [facility] [address] [place] [address] 12/20/2020 15:28:49 12/21/2020 06:31:01 Thyroid nodule 157433648 E04.1 Right nodule. Cytology from [facility] reports benign . This typically [...] genetic analysis. Multiple n odules of lung 024029241 R91.8 Adds to complexity . Concern about whether we can definitive ly link lung nodules to a known primary. Chronic ob structive pulmonary disease 12459540 J44.9 Clinically . Recent PFTs (08/30) c/w emphysema or interstiti al lung disease. Vitamin D deficiency 347 02355 E55.9 Level of 13 (07/29). Given 50K weekly x 1 month. No f/u orders placed. [id number] Everardo Vazquez MD Endocrino logy, [address] [address] 12/27/2020 12:55:55 12/28/2020 06:32:34 [id number] Everardo Vazquez MD Endocrino logy, [facility] [address] [place] [address] 01/03/2021 14:30:30 01/08/2021 13:15:42 Thyroid nodule 038451992 E04.1 Right nodule. Cytology: [place] IV: Suspicious for Follicular Neoplasm. Genomic sequencing meat puller pending. Also expression atlas pending. Reviewed ramificati [...] these options are consistent with cytology from [facility] which reported results as benign . While thyroid CA can metastasiz e to lung, one would typically expect to see adenopathy . She has not had significan t apparent adenopathy on exam. Have discussed case with Pulmonary. Genetic sequencing and expression atlas pending. Multiple n odules of lung 566125067 R91.8 Adds to complexity . Concern about whether we can definitive ly link lung nodules to a known primary. Chronic ob structive pulmonary disease 81759187 J44.9 Clinically . Recent PFTs (08/30) c/w emphysema or interstiti al lung disease. Vitamin D deficiency 347 59828 E55.9 Level of 13 (07/29). Given 50K weekly x 1 month. No f/u orders placed. 12/28: suggest get vit D level checked. [id number] Yeny Elizabeth NP , [facility], OFFICE [address] [place] [address] 06/05/2021 10:44:10 06/05/2021 11:39:08 Essential hypertension 12342511 I10 Chronic ob structive pulmonary disease 60388593 J44.9 Cigarette smoker 3297838 7 F17.210 Tobacco user 475637746 Z 72.0 Screening for osteoporosis 041684280 Z13.820 Low back pain 812701274 M54.50 Multiple n odules of lung 961949177 R91.8 diffuse, bilateral Thyroid nodule 030537509 E04.1 Benign ess ential hypertension 5234102 I10 [id number] Lynda Stewart PA-C , [facility], OFFICE [address] [place] [address] 07/08/2021 11:51:46 07/16/2021 09:19:52 Spasm 87520228 R25.2 describes muscle jerking like spasmrecen t thyroidect yeni, r/o parathyroi d injury - check Cacheck magnesiumi f all normal, she wants to talk to dr. Vazquez at upcoming appt and ask if he thinks this is related somehow to her thyroid. I advised her to let me know if he states it isn't. 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 Should have TSH/free T4 checked (per d/c summary) and see Dr. Vazquez as scheduled. She will have labs today. [id number] Everardo Vazquez MD Endocrino log, [address] [address] 07/18/2021 11:18:55 07/26/2021 06:28:00 Multiple nodules of lung 523083992 R91.8 Adds to complexity . Concern about whether we can definitive ly link lung nodules to a known primary. Chronic ob structive pulmonary disease 24475343 J44.9 Clinically . Recent PFTs (08/30) c/w emphysema or interstiti al lung disease.Di scussed this in relation to smoking and reasons to quit. Vitamin D deficiency 347 33050 E55.9 D= 36.4 (06/30); was 33 (01/28); was 13 (07/29). Had 50K weekly x 1 month.Take s 1-2 daily supplement (07/30). Cigarette smoker 7719320 7 F17.210 Since no clear evidence of metastatic disease, discussed risks/harm s of smoking. Tobacco user 272492264 Z 72.0 Sweating 472992047 R61 Some diarrhea afterwards . Check catechols and also 5hiaa. 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 Not on repalcemen t. check TFTs. [id number] GLENROY MARTI MD , [facility], OFFICE [address] [place] [address] 6 10/31/2021 13:22:38 11/11/2021 09:15:16 Pre-surgery evaluation 403433970 Z01.818 Summary: has low rahel-opera tive risk [...] prophylaxi s as per surgical protocol Backache 801554737 M54.9 rare use of tramadol - refill sent [id number] GLENROY MARTI MD , [facility], OFFICE [address] [place] [address] 12/23/2021 13:29:28 12/23/2021 14:49:50 Adult health examination 322918903 Z00.00 See risk assessment portion of HPI Counseling 882622357 Z71 .9 including cardiovasc ular risk reduction counseling Cardiovasc ular risk reduction was discussed including benefits and risks of aspirin, exercise goals, healthy eating and healthy weight . Discussion greater than 7.5 minutes. Depression screening 171 109394 Z13.31 depression screening tool administer ed, entered into emr, scored and discussed, time greater than 7.5 minutes Screening for alcohol abuse 188429206 Z13.39 An audit alcohol screening test was performed and scored. Patient was asked about alcohol use, advised about risks of alcohol, and personal risk was assessed, patient agreed to plan and given informatio n about available resources if needed. Discussion including screening and scoring less than 7.5 minutes Mixed hyperlipidemia 267 976457 E78.2 Cholestero l is at goal. LDL 65Continue to work on diet and exercise as discussed Essential hypertension 54081651 I10 Controlled . Continue current regimen. Pain in ri ght hip joint 3946690461 20369 M25.551 xrays r/o DJDES Tylenolhad been told not to take NSAIDs due to hypertensi on. Used to prefer Aleve. If pain is not controlled with Tylenol, will try Aleve (or prescripti on naproxen 500 mg) as needed - let me know. Major depr ession, melancholic type 604443286 F33.1 continue sertraline , follow up with therapist. Has been sensitive to other meds so would prefer to stay on same dose. I need a schedule, I need someplace to go. No thoughts of harming herself. Screening mammography 24 146479 Z12.31 Chronic ob structive pulmonary disease 93659489 J44.9 breathing OK - smoking 1 pk/weekCT showed Upper lobe predominan t centrilobu lar emphysema in 01/25/21 at [facility].uses Breo every other day or every 3 days. Legs get stiff when she uses this daily.No glaucoma Mass of axilla 934508559 R22.2 felt last but none now. ?lymph nodeNothin g palpable todayUS ordered [id number] Everardo Vazquez MD Endocrino logy, [facility] [address] [place] [address] 04/03/2022 09:31:23 04/03/2022 13:42:46 Sweating 789269950 R61 Has c/o diarrhea and intermitte nt sweats. Had normal catechols. 5hiaa was slightly high (issues with urine pH collection ). Not high enough to be suspicious for carcinoid. If sx persist, may need to repeat. Multiple n odules of lung 753204331 R91.8 Adds to complexity . Concern about whether we can definitive ly link lung nodules to a known primary. Chronic ob structive pulmonary disease 51238793 J44.9 Clinically . Recent PFTs (08/30) c/w emphysema or interstiti al lung disease.Di scussed this in relation to smoking and reasons to quit. Vitamin D deficiency 347 71414 E55.9 D= 47.5 (03/31); was 36.4 (06/30); was 33 (01/28); was 13 (07/29). Was taking 1-2 daily supplement but lately more prn. Cigarette smoker 5305014 7 F17.210 Since no clear evidence of metastatic disease, discussed risks/harm s of smoking. 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 Not on replacemen t. Check TFTs. [id number] CATHERINE Garza , [facility], OFFICE [address] [place] [address] 05/16/2022 14:08:49 05/16/2022 14:58:54 Tobacco user 852713117 Z72.0 not discussed today, will discuss at f/[place] occasional ly per chart review Active or passive immunization 419783626 Z23 pt already had flu vaccinerem inded about shingles vaccine Pain in right hand 16699 15132 35127 M79.641 s/p fall 2 weeks agorepeat hand/wrist xrays given recurrent edema and painok to continue compressio n brace, rest, ice in the interim Pleuritic pain 5720063 R 07.81 new as of last nightreass uring examencour aged to continue monitoring and call with any changes/wo rsening Pain in ri ght hip joint 2805740704 62268 M25.551 May xray reviewed - moderate degenerati ve changesPT and ortho referrals sentcall as needed Bone density finding 385 503835 M85.80 results 03/2022 reviewed - low bone massFRAX score reviewed: 10 y risk major risk 11%, hip 3.3%discus sed tx options, for now will optimize vitamin D, calcium, and weight-godwin ring and muscle-str engthening repeat scan 2 years Urgent rosalino alan to urinate 42582633 R39.15 POC UA showing trace leuksnot enough urine for culture at appt, will have pt return for this Chronic ob structive pulmonary disease 12353327 J44.9 looking into new pulmonolog ist, has recs from Dr. Vazquez1x refill sent of Trelegy so she has it on hand in the interim Backache 011632412 M54.9 takes tramadol sparingly as needed for chronic back painlast fill 01/2022 per masspatwil l reassess at f/u [id number] CATHERINE Garza , [facility], OFFICE [address] [facility] [place] [facility] [place] [address] 01/01/2023 13:14:36 01/01/2023 14:31:56 Adult health examination 559624811 Z00.00 Depression screening 171 971957 Z13.31 depression screening tool administer ed. as below. Screening for alcohol abuse 115681417 Z13.39 Alcohol use screening tool administer ed. rec max 7 drinks/wee k. Essential hypertension 47894167 I10 consistent ly above goalincrea se nifedipine to 90mg daily (currently taking 60mg daily)f/u 1 month to reassess Mixed hyperlipidemia 267 710722 E78.2 Cholestero l is at goalContin ue to work on diet and exercise as discussed Screening mammography 24 173521 Z12.31 due Active or passive immunization 122352046 Z23 reminded about shingles vaccinetet anus vaccine will do Increased frequency of urination 910064494 R35.0 POC UA negative, unable to send for culture due to limited supplycall with any new/worsen ing symptoms Chronic ob structive pulmonary disease 59229757 J44.9 needs referral to new pulmonolog ist, she will get the name and let us know where she'd like to godoing well otherwise with current inhaler regimen Impaired f asting glycemia [id number] R73.01 improving, recent A1C 5.2 Bone density finding [id number] M85.80 results 03/2022 reviewed - low bone massFRAX score reviewed: 10 y major risk 11%, hip 3.3%prefer s to continue to optimize vitamin D, calcium, and weight-godwin ring and muscle-str engthening repeat scan 2 years Major depr ession, melancholic type [id number] F33.1 reports acute on chronic depression does virtual therapy which helpsalso continues on sertraline Tobacco user 786784760 Z 72.0 We discussed your smoking today for more than 3 minutes. Cigarette use is the leading cause of preventabl e disease, disability , and in the [place]. We talked about tools and medication s available to help you in smoking cessation. We discussed utilizing our smoking cessation career coach and online resources. Your personal goal: to quit! Multiple n odules of lung 152588409 R91.8 per problem list/forme r PCP CE - non-cancer ous. followed by Dr. Leavitt . 09/04/21 note - surveillan ce is complete. pt interested in low dose CT screening to use as f/u as well, as above. Candidiasis of mouth [phone] 53660 B37.0 will treat with darian per patient preference continue good oral hygiene after inhaler usecall if not resolving History of subtotal thyroidectomy 069010000 Z90.09 original concern for metastatic CA as multiple lung nodules, PET lit up mass in thyroid, now s/p subtotal thyroidect yeni, not on medication , following with Dr. Vazquez regularly History of partial resection of colon 641150436 Z90.49 pre cancerous polyp removal 2008, gets colonoscop ies q5 years [id number] Jaimee oLwe RN BSN , [facility], [address] [place] [address] 05/18/2023 11:17:42 05/19/2023 14:44:12 [id number] JANEE SHIELDS MD , [facility] [address] [place] [address] 02/05/2024 13:40:32 02/05/2024 17:40:33 Cough 92714353 R05.9 Essential hypertension 62262367 I10 Has been elevated in the past so will monitor closely. Reduce nifedipine to 60 mg daily. Continue losartan and labetolol. Mixed hyperlipidemia 267 559033 E78.2 She would like to try discontinu ing the statin. Agreed this is fine but we should recheck her cholestero l in a month. Lightheadedness 53631952 8 R42 Mostly with standing. I think [...] the beta fidel. Unintentio nal weight loss 231364389 R63.4 Thinks this was due to breaking her teeth, sore teeth. Advised her to continue to use her protein shakes. Will check some labs as above. Will need to monitor. Chronic ob structive pulmonary disease 64855727 J44.9 Continue inhalers and follow up with pulm. Refilled albuterol - see below. Abnormal gait 55186331 R 26.9 She does have a stiff and tentative gait. Unclear whether this is due to deconditio luisito, her concerns about falling or something neurologic al. Will re-evaluat e at next visit. 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 Not on replacemen t.Update TFTs since having sx. Chronic ob structive pulmonary disease 79170761 J44.9 Clinically . Recent PFTs (08/30) c/w emphysema or interstiti al lung disease.Di scussed this in relation to smoking and reasons to quit. Cigarette smoker 1147714 7 F17.210 Since no clear evidence of metastatic disease, discussed risks/harm s of smoking. Tobacco user 878528971 Z 72.0 counseling . Thyroid fu nction tests abnormal 046130290 R94.6 Not controlled . TSH= 2.3 (03/02) was 1.32 (01/31) ft4= 0.71 (03/02); was 0.7 (07/02) She is having multiple sx that might be c/w insufficie nt thyroid. Low T4 in setting of normal TSH is not c/w primary abnormalit y. Suggests possibilit y of secondary (pituitary ) issue.[facility] k labs. Dizziness 813017927 R42 Not controlled Orthostati cs show now rise in HR with standing (drops systolic > 20 but not hypotensiv e).On labetalol- 150 bid (was 300 bid). decreased a year ago (?06/01?)c heck cortisol/a cth. If OK, may want to review use of labetalol vs. change to alternativ e. Osteopenia with high fracture risk 2535933711 72698 M85.80 BMD @ VMGL1-L4= -0.1 (05/01) .Femoral Neck= -1.9 (05/01)Left Total Hip= -1.5 (05/01)Risk s: thin, white, post-menop ausal and smoker. Has had wrist fx. Update with new baseline. [id number] Everardo Vazquez MD Endocrino [facility], [facility] [address] [place] [address] 06/23/2024 13:35:00 06/27/2024 06:21:22 Thyroid function tests abnormal 463083352 R94.6 Not controlled . TSH=4.12 (06/02) was [...] related to thyroid. 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 Not on replacemen t.Update TFTs since TSH is slowly rising (although still WNL). Dizziness 765319515 R42 Not controlled Orthostati cs showed rise in HR with standing (drops systolic > 20 but not hypotensiv e).On labetalol- 150 bid (was 300 bid). decreased a year ago (?06/01?) Checked cortisol/a cth and those were OKMay want to review use of labetalol vs. change to alternativ e. Osteopenia with high fracture risk 0083105091 01915 M85.80 BMD @ VMGL1-L4= -0.1 (05/01) .Femoral Neck= -1.9 (05/01)Left Total Hip= -1.5 (05/01)Risk s: thin, white, post-menop ausal and smoker. Has had wrist fx. Recommend: - Update with new baseline in future.- Talk to PCP about physical therapy focus on exercises that don't make dizziness worse. Chronic ob structive pulmonary disease 28308223 J44.9 Clinically . Recent PFTs (08/30) c/w emphysema or interstiti al lung disease.Di scussed this in relation to smoking and reasons to quit. Cigarette smoker 1709178 7 F17.210 Since no clear evidence of metastatic disease, discussed risks/harm s of smoking. Tobacco user 943331817 Z 72.0 counseling . Health Concerns Section Related Observation LastModified by Organization Detai ls LastModified Time None Recorded Concern Status LastModified by Organization Details LastModified Time None Recorded Advance Directives Directive None Recorded Payers Encounter Date Sequence Insurance Name Policy Number Policy Coppola Covered Member ID Coppola Member ID Guarantor Name 01/01/2023 2 [facility] (MEDICARE SUPPLEMENT) Linda Gonzalezan [id number] Linda Dinan 01/01/2023 1 [facility] (MEDICARE REPLACEMENT/A DVANTAGE - PPO) [id number] Linda A Dinan [id number] Linda Dinan 05/18/2023 2 [facility] (MEDICARE SUPPLEMENT) Linda Dinan [id number] Linda Dinan 05/18/2023 1 [facility] (MEDICARE REPLACEMENT/A DVANTAGE - PPO) [id number] Linda A Dinan [id number] Linda Dinan 02/05/2024 1 [facility] (MEDICARE REPLACEMENT/A DVANTAGE - PPO) [id number] Linda A Dinan [id number] Linda Dinan 05/05/2024 1 [facility] (MEDICARE REPLACEMENT/A DVANTAGE - HMO) [id number] Linda A Dinan [id number] Linda Dinan 06/23/2024 1 [facility] (MEDICARE REPLACEMENT/A DVANTAGE - PPO) [id number] Linda A Dinan [id number] Linda Shanita Notes Date Note Type Note [...] pressure; Has been difficult to control. 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 On 3 agents. 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) Back pain - ES tylenol only once a day right hip lot of pain - fermin with weight bearing/walking lipids controlled CATHERINE Garza [address] [place] [address], [phone], [facility] 01/02/2023 08:02:49 4 text/html Hasn't felt well [...] the last month.Drove herself to the hospital ([place]) and was admitted several days (need to request records) Also states she was diagnosed with metastatic cancer at one point in the last few years but then the oncologist left, someone else reviewed the records, stated there was no concerns and it wasn't actually cancer. Has COPD - sees pulm, uses a daily inhaler and albuterol prn JANEE SHIELDS MD [address] [place], [address], [facility] 02/05/2024 16:07:07 4 text/html ThyroidReported bypatient.Previous Evaluation:TSH: [...] or evaluation until current issues came up.a/vmg-smoking [id number] bypatient.ImportanceOn a scale of 1-10 with 1 [...] better (but still high). F/U prn.PULM: [facility] ([place]) Follow-Up: thyroid noduleVMG Tobacco / Vaping Use epLV on 03/31LAst labs on 03/02Last Thyroid US on 1PT had a Ranjith-thyroidectomy in [place] bone density 2021 at [facility] ordered by PCPLabs cuedSmoking only occasionallyPT has [...] atorvastatin stopped.SOCIAL Hx (updated):12/28: OT worked at [employer] in [place].Used to smoke - typically < 1-2 ppd. [...] suspicious. Had lobectomy (07/30) Bx done through [facility] Radiology: 2.2x1.7x2.9 (5 passes)- reported [...] compared to July 2020. Everardo Vazquez MD [address] [place] [address], [phone], [facility] 05/05/2024 12:57:58 4 text/html ThyroidReported bypatient.Previous Evaluation:Previous biopsy cytology ([place] IV: Suspicious for follicular neoplasm. Genomic sequencing [...] or evaluation until current issues came up.a/vmg-smoking [id number] bypatient.ImportanceOn a scale of 1-10 with 1 [...] better (but still high). F/U prn.PULM: [facility] ([place]) Follow-Up: thyroid noduleVMG Tobacco / Vaping Use epLV on 05/03LAst labs on 10/24Last Thyroid US on 1PT had a Ranjith-thyroidectomy in [place] bone density 2021 at [facility] ordered by PCPNO Labs cuedSmoking only occasionallyPT [...] balance. 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 [...] suspicious. Had lobectomy (07/30) Bx done through [facility] Radiology: 2.2x1.7x2.9 (5 passes)- reported [...] compared to July 2020. Everardo Vazquez MD [address] [place] [address], [phone], [facility] 06/26/2024 18:32:05 OBGyn Episode No OBEpisode recorded.
== END 2024-11-01 12:46 | disposition home or self-care (01) ==
LOC: HO.MAMMO 12:45
PROVIDERS: PCP Nurse Practitioner Family; Visit Provider Nurse Practitioner Family
DX: Z12.31 Encounter for screening mammogram for malignant neoplasm of breast (principal); Z13.820 Encounter for screening for osteoporosis; M85.80 Other specified disorders of bone density and structure, unspecified site; E28.39 Other primary ovarian failure
CPT/HCPCS: 77063; 77067; 77080

== ENCOUNTER → 2024-11-01 13:30 | Outpatient (BNV) | payer MEDICARE, SELFPAY | PROVIDERS: PCP Nurse Practitioner Family; Visit Provider Radiology Diagnostic Radiology | DX: E28.39 Other primary ovarian failure (principal) | CPT/HCPCS: 77080 ==

== ENCOUNTER 2024-11-10 12:50 | Outpatient (AMB) | payer MEDICARE, SELFPAY ==
--- NOTE | 2024-11-10 12:56 | A.OFFPC_ITS ---
Vital Signs 11/10/24 13:09 11/10/24 13:56 Height 5 ft 3 in Weight 109 lb 8 oz BMI 19.4 BP 138/76 130/76 Blood Pressure Location Lt brachial Lt brachial Position Sitting Sitting Respiration 13 Pulse 73 70 Pulse Source Pulse Oximeter Auscultation Temp 97.3 F Temp Source Oral Pulse Oximetry (%) 95 Oxygen Delivery Method Room Air Intake Visit Reasons: 2 weeks 30 min FU off labetolo Intake Note: 2 weeks follow up Ware Carrier Required: No Allergies Penicillins [PENICILLINS] Allergy (Unknown, Verified 11/10/24 13:30) ITCHING Medication List - Last Reconciled 11/10/24 by Rosa M Mason, CATTYMAN-BC fluticasone propion-salmeterol 113-14 mcg/actuation (AirDuo RespiClick) 1 inh inhalation Q12H 30 days mecobalamin (vitamin B12) (B12 Active) 2,000 mcg (2 x 1,000 mcg) PO DAILY nifedipine ER mg PO sertraline 200 mg PO .at night tramadol 50 mg PO DAILY PRN Tobacco use date assessed: 11/10/24 Fall risk assessment: No Falls in past year Last assessed Fall Risk: 11/10/24 Dental Screening Dental Screen Date: 11/10/24 Did you have a dental visit in the last 12 months?: Yes Did you have a dental problem in the last 6 months where you did not have access to dental care?: No Was dental information given to patient?: Patient has dentist HPI HPI Comments History of Present Illness Details 69 y/o f with benign lipid adenoma bilat , R renal cyst, uterine fibroid, severe atherosclerotic calcification of the aorta and moderate to severe calcifications of the iliofemoral vessels (CT abd pelvis 01/2024), spinal DJD, bilat lung nodule, current smoker, COPD, thyroid ca, ANA, HTN, hx of renal stones, MDD , osteopenia, s/p L arm fracture, b 12 def s/p hemithyroidectomy 2020, bowel resection, S/p bilat CTS, Multiple teeth extractions Fmhx: Mom brain ca 29, dad mi 62, brother skin ca, sister CVA, Sz 55, family hx of etoh abuse, sister of etoh abuse sp liver transplants Mammo 10/2024 DEXA 10/2024 Osteopenia The patient is a 69-year-old female presenting with management of multiple chronic conditions. - The patient is actively managing her h ypertension with Nifedipine and Losartan after discontinuing Labetalol due to decreased heart rates. She reports monitoring her blood pressure at home, observing variabilities. She is not 100% sure she is taking losartan and if she is what dose. - No GERD off famotidine. - She experiences dizziness that is easi ng with adjustments in her medication regimen and remains positional, often linked to dietary habits and sudden postural changes. - The patient reports enduring right hip pain, initially assessed pre-pandemic, advised to seek further consultation due to potential arthritic changes, and is awaiting a new orthopedic evaluation. - Persistent Eustachian tube dysfunction is observed, specifically ear popping, with no effective relief from swimmer?s ear solutions. - Recent diagnostic results reveal a nor mal mammogram and unchanged osteopenia from a bone density scan. Here today for preoperative clearance. Surgery Type:Extensive oral/facial surgery including removal of teeth, smoothing of jaw bones and dental implant placement Anesthesia Type: nasotracheal general anesthesia 3-4 hours Surgeon: [facility] Date: pending at this time Any past surgical procedures: yes, see above Any complications from anesthesia or in post-op period: none ASA or NSAID Use: no Current smoker: Y Alcohol use: N Drug use: N METs: > 4 climb flight of stairs, golf, walk, yardwork Medical history: Asthma N COPD Y Obesity BMI 19.4 Diabetes N She does not have: NE < 6 weeks, unstable angina, CHF, severe valve disease Exam Awake alert, frail RRR LS dim throughout No edema BLE Mood and affect appropriate Results Labs from 09/20/2024 show a normal CBC, normal electrolytes, normal renal function, normal iron, normal LFTs, normal lipid profile with LDL 94, normal vitamin-D and TSH, normal urine microalbumin creatinine ratio, b12 low Plan: Pulse and dizziness improved off labetolol. Has some episodes fo HTN at home. Denies chest pain. On losartan 100mg, she thinks, but is unsure. She will send me a message on the portal to confirm. She is also on Nifedipine. The plan will be to maximize her losartan if not already OR add HCTZ Will need to monitor K+ if starting HCTZ Remain of famotidine. Refer to [facility] Ortho for R hip Given info for Audio and Cards to have her schedule appt In regards to clearance for the dental procedure, given her COPD and active smoking, I would like Pulm to see her first and give clearance. She has appt scheduled in January. I will send a heads up and see if they can see her sooner. Stop swimmers ears drops, they arent helping. Take Ca+D for osteopenia. Otherwise advised her to RTO in for routine f/u sooner PRN Total time spent caring for the patient today was 43 minutes. This includes time spent before the visit reviewing the chart, time spent during the visit, and time spent after the visit on documentation, reviewing laboratory results, diagnostic imaging, medications, performing a medically necessary evaluation, counseling on diagnoses, care coordination, ordering appropriate tests, ordering appropriate medications, review of tests performed by other providers, reporting test results with the patient, communication with other healthcare providers. [facility] Medical History (Updated 11/10/24 @ 13:38 by WILL Rivas-JAMES) COPD (chronic obstructive pulmonary disease) History of mammogram Nicotine dependence, cigarettes, uncomplicated ANA (obstructive sleep apnea) Pulmonary nodules Thyroid cancer Surgical History (Updated 10/19/24 @ 17:14 by WILL Rivas-JAMES) H/O laminectomy History of bowel resection History of colonoscopy Previous back surgery Family History Sister Depression Brother Depression HTN (hypertension) Father HTN (hypertension) Heart disease Paternal Grandfather HTN (hypertension) Brother Heart disease Other FH: mental illness Social History Housing: House Alcohol intake: current Patient Tobacco Use Status: Current everyday Tobacco user Tobacco use type: Cigarette Cigarettes Per Day: 10 Years Smoked: 20 e-Cigarette/Vaping Use: Never Used service: No Current occupational status: retired Cognitive needs: No Hearing needs: Yes (need hearing checked) Vision needs: Yes (glasses) Questionnaire PHQ-9 Over the last 2 weeks, how often have you been bothered by any of the following problems? 1. Little interest or pleasure in doing things: not at all 2. Feeling down, depressed, or hopeless: not at all 3. Trouble falling or staying asleep, or sleeping too much: not at all 4. Feeling tired or having little energy: not at all 5. Poor appetite or overeating: not at all 6. Feeling bad about yourself - or that you are a failure or have let yourself or your family down: not at all 7. Trouble concentrating on things, such as reading the newspaper or watching television: not at all 8. Moving or speaking so slowly that other people could have noticed. Or the opposite - being so fidgety or restless that you have been moving around a lot more than usual: not at all 9. Thoughts that you would be better off or of hurting yourself in some way: not at all Total score: 0 90517 - PHQ-9 Billing: Yes Source: Developed by Drs. Robert Rothman, Alexandria Frausto, Cristino Miller and colleagues, with an educational susy from [employer]. Thrive Questionnaire Date Thrive assessed: 11/10/24 I am a: Patient What is your living situation today?: I have a steady place to live Within the past 12 months, did the food you bought not last and you didn't have the money to get more?: Never true Within the past 12 months, did you worry whether your food would run out before you got money to buy more?: Never true Do you have trouble paying for medicines?: Yes Do you have trouble getting transportation to medical appointments?: No Do you have trouble paying your heating and electricity bill?: Yes Do you have trouble taking care of your child, family member or friend?: No Do you have trouble with day-to-day activities such as bathing, preparing meals, shopping, managing finances, etc.?: I choose not to answer this question Are you currently unemployed and looking for a job?: No Are you interested in more education?: Yes Please select the resources that you would like help with: Paying for medicine Currently or been in a relationship where the following occur: No concerns reported THRIVE Score: 1 VIGNESH-7 AMB Questionnaire VIGNESH-7 Date VIGNESH - 7 assessed: 11/10/24 Feeling nervous, anxious, or on edge: 0 = Not at all Not being able to stop or control worryin = Not at all Worrying too much about different things: 0 = Not at all Trouble relaxin = Not at all Being so restless that it is hard to sit still: 0 = Not at all Becoming easily annoyed or irritable: 0 = Not at all Feeling afraid as if something awful might happen: 0 = Not at all Total VIGNESH-7 score (0-4 normal; 5-9 mild; 10-14 moderate; 15-21 severe): 0 Source: Developed by Drs. Robert Rothman, Alexandria Frausto, Cristino Miller and colleagues, with an educational susy from [employer]. VIGNESH-7 Assessment Billing VIGNESH-7 Assessment Tool: VIGNESH-7 Assessment 10944 Physical exam (Primary Care) Vital Signs: Last Vital Signs Temp 97.3 F 11/10/24 13:09 Pulse 73 11/10/24 13:09 Resp 13 11/10/24 13:09 BP 138/76 11/10/24 13:09 Pulse Ox 95 11/10/24 13:09 Oxygen Delivery Method Room Air 11/10/24 13:09 BMI result Body Mass Index 19.4 Tobacco/Smoking Status: Tobacco use Status Tobacco use date assessed 11/10/24 11/10/24 12:57 Patient Tobacco Use Status Current everyday Tobacco 11/10/24 12:57 Tobacco use type Cigarette 11/10/24 12:57 e-Cigarette/Vaping Use Never Used 11/10/24 12:57 PHQ-9: PHQ-9 Score PHQ-9: Total score 0 11/10/24 12:57 Thrive Assessment: Date of Thrive Assessment Date Thrive assessed 11/10/24 11/10/24 12:57 Currently or been in a relationship where the following occur: No concerns reported Coding Level of Care Code Est Pt Level 5 (82775) Complex EM visit Add On G2211 Diagnoses Pre-op evaluation Z01.818 Dizziness R42 Primary hypertension I10 Hypertension type: primary hypertension Osteoarthritis of right hip M16.11 Osteopenia, unspecified location M85.80 Osteopenia location: unspecified Nicotine dependence, cigarettes, uncomplicated F17.210 Additional Codes VIGNESH-7 Assessment Billing - VIGNESH-7 Assessment Tool: VIGNESH-7 Assessment 79030 ([id number]) PHQ-9 - 58890 - PHQ-9 Billing: Yes ([id number]) Assessment & Plan Assessment & Plan (1) Pre-op evaluation: Code(s): Z01.818 - Encounter for other preprocedural examination Plan: Message to [facility] Pulm for clearance. Medically she is ok. Worried about her Pulm. risk factors specifically her smoking. (2) Dizziness: Code(s): R42 - Dizziness and giddiness Category: Medical (3) HTN (hypertension): Code(s): I10 - Essential (primary) hypertension Category: Medical Qualifiers: Hypertension type: primary hypertension Qualified Code(s): I10 - Essential (primary) hypertension (4) Osteoarthritis of right hip: Code(s): M16.11 - Unilateral primary osteoarthritis, right hip Category: Medical (5) Osteopenia: Comment: DEXA 10/2024 Code(s): M85.80 - Other specified disorders of bone density and structure, unspecified site Category: Medical Qualifiers: Osteopenia location: unspecified Qualified Code(s): M85.80 - Other specified disorders of bone density and structure, unspecified site (6) Nicotine dependence, cigarettes, uncomplicated: Code(s): F17.210 - Nicotine dependence, cigarettes, uncomplicated Category: Medical Plan . Orders: Referrals Orthopedics Referral M16.11 - Unilateral primary osteoarthritis, right hip Medications: New losartan 100 mg PO DAILY 90 tabs 0RF
[2024-11-10 13:09] VITALS: BP 138/76; PULSE 73; RESP 13; TEMP 36.3; O2SAT 95; BMI 19.4
[2024-11-10 13:56] VITALS: BP 130/76; PULSE 70
--- OUTSIDE RECORDS SUMMARY | 2024-11-10 13:56 | XMS_ITS | Data Portability ---
[facility] Address [address] [place] [address] Care Team Providers Care Factory Engineer Name Role Phone EVERARDO VAZQUEZ Prosthodontist/Owner EMELIA ELIZABETH Primary Care Provider DEANNA JIMENEZ Orthopedist PARVEEN DELVALLE, DMITRIY Gun Numberer [phone] Assessment Encounter Date Assessment Date Assessment LastModified [...] recorded. Lab TSH, serum or plasma 2023 [facility], [address] [place] [address], [address], 12:31:07 T4, free, serum 2023 024 [facility], [address] [place] [address], [address], 11:52:26 T3, total, serum 2023 [facility], [address] [place] [address], [address], 11:09:06 FSH (follicle-s timulating hormone), serum 2023 024 [facility], [address] [place] [address], [address], 11:09:07 igf-1 (insulin-li ke growth factor), serum 2023 024 [facility], [address] [place] [address], [address], 14:43:26 cortisol, am, serum 2023 024 [facility], [address] [place] [address], [address], 14:43:25 acth, plasma 2023 024 [facility], [address] [place] [address], [address], 14:43:27 prolactin, serum 2023 024 [facility], [address] [place] [address], [address], 4 14:43:27 lipid panel, serum 2023 024 [facility], [address] [place] [address], [address], 4 11:46:37 CBC 2023 024 [facility], [address] [place] [address], [address], 4 15:23:54 TSH, serum or plasma 2023 024 [facility], [address] [place] [address], 29[address], 4 15:23:40 BMP, serum or plasma 2023 024 [facility], [address] [place] [address], [address], 4 11:46:37 urinalysis, dipstick 2022 023 [facility], [address] [place] [address], [address], 3 13:57:42 Referral None recorded. Procedures None recorded. Surgeries None recorded. Imaging MAMMO, screening, tomosynthes is, bilateral 2022 023 [facility] (Imaging), [address], [place], [address], 3 16:06:19 LDCT, chest, for lung cancer screening - Please enroll this patient in the LDCT Lung Cancer Screening Program (for ordering, follow up and shared decision making)h as hx known nodules. Dr. Leavitt 09/04/212022 023 [facility], [address] [place], [address], 3 17:26:04 Medication Orders albuterol sulfate HFA 90 mcg/actuati on aerosol inhaler 2023 024 MICHELE [facility], [address] [place] [address], [address], [place], [place], [id number], 4 14:18:20 clotrimazol e 10 mg darian 2022 023 [email or web address] [facility], [address], [address], [place], [place], [id number], 14:14:41 Patient TargetsNo targets recorded. Patient Instructions Encounter Date Encounter Id Patient Instructions Last Modified By Organization Details Last Modified Time 01/01/2023 [id number] high cholesterol lifestyle changes Not available 01/01/2023 14:40:56 advance directives: care instructions Not available 01/01/2023 14:40:57 preventing falls: care instructions Not available 01/01/2023 14:40:57 hearing loss: care instructions Not available 01/01/2023 14:40:56 well visit, over 65: care instructions Not available 01/01/2023 14:40:57 05/05/2024 [id number] - Get labs done before 8AM. [email or web address] [...] My Health To Do List {{go to [employer] www.[employer] or call * sign up for maru text 2 quit or other stop smoking maru contact Lead[employer]2020ee.gov}} {{go to [employer] or call s ign up for maru text 2 quit or other stop smoking maru contact smokeCREATIV™ Media Group.gov*}} {{go to [employer] or call s ign up for maru text 2 quit or other stop smoking maru contact Intentio.gov}} Counseling done {{Patient not ready to quit [...] {{adding exercise regular meals stress management impro Wanderg sleep therapist identifying sponsor}} {{adding exercise regular meals stress management impro [employer] sleep therapist identifying sponsor}} My Divide To Do List {{go to [employer] or call s ign up for maru text 2 quit or other stop smoking maru contact smokeCREATIV™ [employer].gov}} {{go to [employer] or call s ign up for maru text 2 quit or other stop smoking maru contact Intentio.gov}} {{go to [employer] or call s ign up for maru text 2 quit or other stop smoking maru contact smokeMangoPlateee.gov}} Not available 05/03/2024 09:03:04 06/23/2024 [id number] [email or web address] Not available 06/26/2024 18:30:45 6 months/ [...] My Health To Do List {{go to [employer] or call * sign up for maru text 2 quit or other stop smoking maru contact smokeCRE[employer].gov}} {{go to [employer]Zipdial or call s ign up for maru text 2 quit or other stop smoking maru contact Intentio.gov*}} {{go to [employer] or call s ign up for maur text 2 quit or other stop smoking maru contact Intentio.gov}} Counseling done {{Patient not ready to quit [...] My Health To Do List {{go to [employer] or call s ign up for maru text 2 quit or other stop smoking maru contact smokefrDisruptor Beam.gov}} {{go to [employer] or call s ign up for maru text 2 quit or other stop smoking maru contact smoke[employer].gov}} {{go to [employer] or call s ign up for maru text 2 quit or other stop smoking maru contact smoke[employer].gov}} [email or web address] Not available 06/23/2024 15:00:31 Reason for [...] furth er confi rmati on Not Available [address], [address], 12/25/2022 16:23:00 12/26/19 23 12/25/2022 HGB A1C estimated average glucose 102.5 mg/dL Not Available [address], [address], 12/25/2022 16:23:00 12/26/19 23 12/25/2022 VITAM IN [...] er than 30 ng/mL . Not Available [address], [address], 12/25/2022 16:26:10 12/26/1912/25/2022 TSH TSH 1.79 uIU/m L 0.50-6 .00 The Ameri can Colle ge of Endoc rinol ogy and Ameri can Thyro id Assoc iatio n recom mend goal TSH value s betwe en 0.4-4 .0 mIU/m L. Not Available [address], [address], 12/25/2022 16:26:15 12/26/19 23 12/25/2022 BASIC METAB OLIC PANEL glucose 120 mg/dL 70-100 high Not Available [address], [address], 12/25/2022 16:33:09 12/26/19 23 12/25/2022 BASIC METAB OLIC PANEL BUN 7 mg/dL 7-18 Not Available [address], [address], 12/25/2022 16:33:09 12/26/19 23 12/25/2022 BASIC METAB OLIC PANEL creatinine 0.8 mg/dL 0.8-1. 3 Not Available [address], [address], 12/25/2022 16:33:09 12/26/19 23 12/25/2022 BASIC METAB OLIC PANEL B/C 8.8 ratio Not Available [address], [address], 12/25/2022 16:33:09 12/26/19 23 12/25/2022 BASIC METAB [...] be used in pregn junaid. Not Available [address], [address], 12/25/2022 16:33:09 12/26/19 23 12/25/2022 BASIC METAB OLIC PANEL sodium 141 mmol/ L 136-14 5 Not Available [address], [address], 12/25/2022 16:33:09 12/26/19 23 12/25/2022 BASIC METAB OLIC PANEL potassium 3.6 mmol/ L 3.5-5. 1 Not Available [address], [address], 12/25/2022 16:33:09 12/26/19 23 12/25/2022 BASIC METAB OLIC PANEL chloride 98 mmol/ L 96-107 Not Available [address], [address], 12/25/2022 16:33:09 12/26/19 23 12/25/2022 BASIC METAB OLIC PANEL anion gap 11.7 5.0-15 .0 Not Available [address], [address], 12/25/2022 16:33:09 12/26/19 23 12/25/2022 BASIC METAB OLIC PANEL CO2 31 mmol/ L 21-32 Not Available [address], [address], 12/25/2022 16:33:09 12/26/19 23 12/25/2022 BASIC METAB OLIC PANEL calcium 9.4 mg/dL 8.5-10 .3 Not Available [address], [address], 12/25/2022 16:33:09 12/26/19 23 12/25/2022 LIPID PANEL cholesterol 178 mg/dL <200 mg/dl Rola able 200-2 39 mg/dl Borde rline High >240 mg/dl High Not Available [address], [address], 12/25/2022 16:33:11 12/26/19 23 12/25/2022 LIPID PANEL triglyceride s 76 mg/dL <150 mg/dL Mercedes l 150-1 99 mg/dL Borde rline High 200-4 99 mg/dL High >500 mg/dL Very High Not Available [address] [place], [address], 12/25/2022 16:33:11 12/26/19 23 12/25/2022 LIPID PANEL direct HDL 80 mg/dL <40 mg/dl - Major Risk for CHD >60 mg/dl - Negat wesley Risk for CHD Not Available [address] [place], [address], 12/25/2022 16:33:11 12/26/19 23 12/25/2022 DIREC T [...] r is not braxton liang. Not Available [address], [address], 12/25/2022 16:33:14 01/02/20 23 01/01/2023 POC UA glu UA NEGATI VE Not Available [facility] [address] [place] [address], [address], 01/01/2023 13:57:42 01/02/20 23 01/01/2023 POC UA clarity UA CLEAR Not Available [facility] [address] [place] [address], [address], 01/01/2023 13:57:42 01/02/20 23 01/01/2023 POC UA uro UA 0.2000 Not Available [facility] [address] [place] [address], [address], 01/01/2023 13:57:42 01/02/20 23 01/01/2023 POC UA ket UA NEGATI VE Not Available [facility] [address] [place] [address], [address], 01/01/2023 13:57:42 01/02/20 23 01/01/2023 POC UA pro UA NEGATI VE Not Available [facility] [address] [place] [address], 08[address], 01/01/2023 13:57:42 01/02/20 23 01/01/2023 POC UA nit UA NEGATI VE Not Available [facility] [address] [place] [address], 0[address], 01/01/2023 13:57:42 01/02/20 23 01/01/2023 POC UA rebekah UA NEGATI VE Not Available [facility] [address] [place] [address], 29[address], 01/01/2023 13:57:42 01/02/20 23 01/01/2023 POC UA pH UA 7.0000 Not Available [facility] [address] [place] [address], 35[address], 01/01/2023 13:57:42 01/02/20 23 01/01/2023 POC UA SG UA 1.0200 Not Available [facility] [address] [place] [address], 344[address], 01/01/2023 13:57:42 01/02/20 23 01/01/2023 POC UA color UA YELLOW Not Available [facility] [address] [place] [address], 47[address], 01/01/2023 13:57:42 01/02/20 23 01/01/2023 POC UA blo UA NEGATI VE Not Available [facility] [address] [place] [address], 59168, 01/01/2023 13:57:42 01/02/20 23 01/01/2023 POC UA bren UA NEGATI VE Not Available [facility] [address] [place] [address], 088[address], 01/01/2023 13:57:42 02/05/20 24 02/05/2024 HGB A1C [...] furth er confi rmati on Not Available [address], [address], 02/05/2024 15:16:31 02/05/20 24 02/05/2024 HGB A1C estimated average glucose 105.4 mg/dL Not Available [address], [address]696, 02/05/2024 15:16:31 02/05/20 24 02/05/2024 CBC WBC 7.83 K/??L 3.98-1 0.04 Not Available [address], [address], 02/05/2024 15:23:54 02/05/20 24 02/05/2024 CBC RBC 4.36 M/??L 3.93-5 .22 Not Available [address], [address], 02/05/2024 15:23:54 02/05/20 24 02/05/2024 CBC HGB 14.3 g/dL 11.2-1 5.7 Not Available [address], [address], 02/05/2024 15:23:54 02/05/20 24 02/05/2024 CBC HCT 41.8 % 34.1-4 4.9 Not Available [address], 7[address], 02/05/2024 15:23:54 02/05/20 24 02/05/2024 CBC MCV 95.9 fL 79.4-9 4.8 high Not Available [address], [address], 02/05/2024 15:23:54 02/05/20 24 02/05/2024 CBC MCH 32.8 pg 25.6-3 2.2 high Not Available [address], 86[address], 02/05/2024 15:23:54 02/05/20 24 02/05/2024 CBC MCHC 34.2 g/dL 32.2-3 5.5 Not Available [address], 48[address], 02/05/2024 15:23:54 02/05/20 24 02/05/2024 CBC plt 225 K/??L 182-36 9 Not Available [address], [address], 02/05/2024 15:23:54 02/05/20 24 02/05/2024 CBC MPV 10.8 fL 9.4-12 .3 Not Available [address], [address], 02/05/2024 15:23:54 02/05/20 24 02/05/2024 CBC neut% 71.8 % 34.0-7 1.1 high Not Available [address], [address]60, 02/05/2024 15:23:54 02/05/20 24 02/05/2024 CBC neut# 5.62 1.56-6 .13 Not Available [address], 94881, 02/05/2024 15:23:54 02/05/20 24 02/05/2024 CBC lymph % 20.9 % 19.3-5 1.7 Not Available [address], 97194, 02/05/2024 15:23:54 02/05/20 24 02/05/2024 CBC lymph # 1.64 K/??L 1.18-3 .74 Not Available [address], [address], 02/05/2024 15:23:54 02/05/20 24 02/05/2024 CBC mono% 5.6 % 4.7-12 .5 Not Available [address], 85651, 02/05/2024 15:23:54 02/05/20 24 02/05/2024 CBC mono# 0.44 0.24-0 .56 Not Available [address], 47[address], 02/05/2024 15:23:54 02/05/20 24 02/05/2024 CBC eo% 0.8 % 0.7-5. 8 Not Available [address], 139[address], 02/05/2024 15:23:54 02/05/20 24 02/05/2024 CBC eo# 0.06 0.04-0 .36 Not Available [address], 18[address], 02/05/2024 15:23:54 02/05/20 24 02/05/2024 CBC baso% 0.6 % 0.1-1. 2 Not Available [address], 8[address]67, 02/05/2024 15:23:54 02/05/20 24 02/05/2024 CBC baso# 0.05 0.00-0 .08 Not Available [address], 9[address], 02/05/2024 15:23:54 02/05/20 24 02/05/2024 CBC RDW-CV 12.3 % 11.7-1 4.4 Not Available [address], [address], 02/05/2024 15:23:54 02/05/20 24 02/05/2024 CBC Ig% 0.300 % 0.000- 1.500 Ig % >0.5 Indic ates possi ble Left Shift Not Available [address], [address], 02/05/2024 15:23:54 02/05/20 24 02/05/2024 CBC Ig# 0.020 0.000- 0.093 Not Available [address], [address], 02/05/2024 15:23:54 02/05/20 24 02/05/2024 CBC NRBC% 0.0 % 0.0-0. 2 Not Available [address], 834[address], 02/05/2024 15:23:54 02/05/20 24 02/05/2024 CBC NRBC# 0.000 0.000- 0.012 Not Available [address], [address], 02/05/2024 15:23:54 02/05/20 24 02/08/2024 BASIC METAB OLIC PANEL glucose 113 mg/dL 70-100 high Not Available [address], [address], 02/08/2024 11:46:36 02/05/20 24 02/08/2024 BASIC METAB OLIC PANEL BUN 16 mg/dL 7-18 Not Available [address], [address], 02/08/2024 11:46:36 02/05/20 24 02/08/2024 BASIC METAB OLIC PANEL creatinine 0.7 mg/dL 0.8-1. 3 low Not Available [address], 82[address], 02/08/2024 11:46:36 02/05/20 24 02/08/2024 BASIC METAB OLIC PANEL B/C 22.9 ratio Not Available [address], 28[address], 02/08/2024 11:46:36 02/05/20 24 02/08/2024 BASIC METAB [...] be used in pregn junaid. Not Available [address], [address], 02/08/2024 11:46:36 02/05/20 24 02/08/2024 BASIC METAB OLIC PANEL sodium 142 mmol/ L 136-14 5 Not Available [address], [address], 02/08/2024 11:46:36 02/05/20 24 02/08/2024 BASIC METAB OLIC PANEL potassium 4.5 mmol/ L 3.5-5. 1 Not Available [address], 46[address], 02/08/2024 11:46:36 02/05/20 24 02/08/2024 BASIC METAB OLIC PANEL chloride 102 mmol/ L 96-107 Not Available [address], 59394, 02/08/2024 11:46:36 02/05/20 24 02/08/2024 BASIC METAB OLIC PANEL anion gap 11.9 5.0-15 .0 Not Available [address], [address], 02/08/2024 11:46:36 02/05/20 24 02/08/2024 BASIC METAB OLIC PANEL CO2 28 mmol/ L 21-32 Not Available [address], 00753, 02/08/2024 11:46:36 02/05/20 24 02/08/2024 BASIC METAB OLIC PANEL calcium 9.5 mg/dL 8.5-10 .3 Not Available [address], [address], 02/08/2024 11:46:36 02/05/20 24 02/08/2024 LIPID PANEL cholesterol 204 mg/dL <200 mg/dl Rola able 200-2 39 mg/dl Borde rline High >240 mg/dl High Not Available [address], [address], 02/08/2024 11:46:37 02/05/20 24 02/08/2024 LIPID PANEL triglyceride s 63 mg/dL <150 mg/dL Mercedes l 150-1 99 mg/dL Borde rline High 200-4 99 mg/dL High >500 mg/dL Very High Not Available [address], [address], 02/08/2024 11:46:37 02/05/20 24 02/08/2024 LIPID PANEL direct HDL 72 mg/dL <40 mg/dl - Major Risk for CHD >60 mg/dl - Negat wesley Risk for CHD Not Available [address], [address], 02/08/2024 11:46:37 02/05/20 24 02/08/2024 DIREC T [...] r is not braxton tavera. Not Available [address], [address], 02/08/2024 11:46:38 02/05/20 24 02/08/2024 TSH TSH 1.32 uIU/m L 0.50-6 .00 The Ameri can Colle ge of Endoc rinol ogy and Mameeri can Thyro id Assoc iatio n recom mend goal TSH value s betwe en 0.4-4 .0 mIU/m L. Not Available [address], [address], 02/08/2024 15:23:40 02/29/20 24 03/01/2024 FREE T4 free T4 0.71 NG/dL 0.75-1 .54 low Not Available [address], [address], 03/01/2024 10:48:50 02/29/20 24 03/01/2024 VITAM IN [...] er than 30 ng/mL . Not Available [address], 847[address], 03/01/2024 10:55:50 02/29/20 24 03/01/2024 TSH TSH 2.30 uIU/m L 0.50-6 .00 The Ameri can Colle ge of Endoc rinol ogy and Ameri can Thyro id Assoc iatio n recom mend goal TSH value s betwe en 0.4-4 .0 mIU/m L. Not Available [address], [address], 03/01/2024 11:03:38 05/31/20 24 05/31/2024 FREE T4 free T4 0.80 NG/dL 0.75-1 .54 Not Available [address], [address], 05/31/2024 11:52:26 05/31/20 24 05/31/2024 TSH TSH 4.12 uIU/m L 0.50-6 .00 The Ameri can Colle ge of Endoc rinol ogy and Ameri can Thyro id Assoc iatio n recom mend goal TSH value s betwe en 0.4-4 .0 mIU/m L. Not Available [address], [address]87, 05/31/2024 12:31:07 05/31/20 24 06/01/2024 TOTAL T3 total T3 1.28 NG/mL 0.70-1 .70 Not Available [address], [address], 06/01/2024 11:09:06 05/31/20 24 06/01/2024 FSH FSH 70.6 mIU/m L Male: 1.0 - 42.5 mIU/m L Femal e Ovula ting: Folli cular Phase : 2.7 - 15.4 mIU/m L Peak: 3.9 - 22.0 mIU/m L Lutea l Phase : 1.0 - 14.4 mIU/m L Postm enopa usal: 25.0 - 160.0 mIU/m L Not Available [address], [address], 06/01/2024 11:09:07 05/31/20 24 06/01/2024 LIPID PANEL cholesterol 219 mg/dL <200 mg/dl Rola able 200-2 39 mg/dl Borde rline High >240 mg/dl High Not Available [address], 828[address], 06/01/2024 14:38:40 05/31/20 24 06/01/2024 LIPID PANEL triglyceride s 150 mg/dL <150 mg/dL Mercedes l 150-1 99 mg/dL Borde rline High 200-4 99 mg/dL High >500 mg/dL Very High Not Available [address], [address], 06/01/2024 14:38:40 05/31/20 24 06/01/2024 LIPID PANEL direct HDL 70 mg/dL <40 mg/dl - Major Risk for CHD >60 mg/dl - Negat wesley Risk for CHD Not Available [address], [address], 06/01/2024 14:38:40 05/31/20 24 06/01/2024 LDL - [...] r is not braxton tavera. Not Available [address], [address], 06/01/2024 14:38:42 05/31/20 24 06/01/2024 BASIC METAB OLIC PANEL glucose 104 mg/dL 70-100 high Not Available [address], [address], 06/01/2024 15:00:52 05/31/20 24 06/01/2024 BASIC METAB OLIC PANEL BUN 14 mg/dL 7-18 Not Available [address], [address], 06/01/2024 15:00:52 05/31/20 24 06/01/2024 BASIC METAB OLIC PANEL creatinine 0.8 mg/dL 0.8-1. 3 Not Available [address], 7[address], 06/01/2024 15:00:52 05/31/20 24 06/01/2024 BASIC METAB OLIC PANEL B/C 17.5 ratio Not Available [address], [address], 06/01/2024 15:00:52 05/31/20 24 06/01/2024 BASIC METAB [...] be used in pregn junaid. Not Available [address], [address], 06/01/2024 15:00:52 05/31/2006/01/2024 BASIC METAB OLIC PANEL sodium 144 mmol/ L 136-14 5 Not Available [address], [address], 06/01/2024 15:00:52 05/31/2006/01/2024 BASIC METAB OLIC PANEL potassium 4.1 mmol/ L 3.5-5. 1 Not Available [address], 23584, 06/01/2024 15:00:52 05/31/2006/01/2024 BASIC METAB OLIC PANEL chloride 104 mmol/ L 96-107 Not Available [address], [address]21, 06/01/2024 15:00:52 05/31/2006/01/2024 BASIC METAB OLIC PANEL anion gap 9.8 5.0-15 .0 Not Available [address], [address], 06/01/2024 15:00:52 05/31/2006/01/2024 BASIC METAB OLIC PANEL CO2 30 mmol/ L 21-32 Not Available [address], 82958, 06/01/2024 15:00:52 05/31/2006/01/2024 BASIC METAB OLIC PANEL calcium 9.7 mg/dL 8.5-10 .3 Not Available [address], [address], 06/01/2024 15:00:52 05/31/20 24 06/07/2024 IGF 1, LC/MS igf 1, lc/MS 129 NG/mL 34-245 Not Available [facility] [address], [address], 06/07/2024 14:43:26 05/31/2006/07/2024 IGF 1, LC/MS Z score (female) 0.4 SD -2.0 - +2.0 This test was devel oped and its arnold tical perfo rmanc e kamari cteri stics have been deter mined by [facility]. It has not been clear ed or appro ariel by FDA. This assay has been valid ated pursu ant to the CLIA regul ation s and is used for clini laney purpo ses. Not Available [facility] [address], [place], [address], 06/07/2024 14:43:26 05/31/20 24 06/07/2024 ACTH, PLASM A acth, plasma 18 pg/mL 6-50 Refer ence range appli es only to speci mens colle cted betwe en 7am-1 0am. Not Available [facility] [address], [place], [address], 06/07/2024 14:43:26 05/31/2006/07/2024 PROLA CTIN prolactin 9.4 NG/mL normal Refer ence Range Femal es Non-p regna nt 3.0-3 0.0 Pregn ant 10.0- 209.0 Postm enopa usal 2.0-2 0.0 Not Available [facility] [address], [address], 06/07/2024 14:43:27 04/24/2004/24/2023 LDCT, chest , for lung cance r scree luisito No observ ation record ed. [facility] [address] [facility], [place], [address], 04/28/2023 17:05:43 04/27/20 23 04/27/2023 MAMMO , [...] PM Reji francis Physic frank: Jai mckee [facility] (Imaging) [address], [place], [address], 04/27/2023 16:30:52 Result Notes None recorded. Problems Name Problem SNOMED Code Status Onset Date Resolution Date Notes Provider Name and Address Organization Details Recorded Time Joint pain 28061418 Completed 01/01/2023 CATHERINE Garza [address] [place] [address], [phone] , [facility] 3 14:47:10 Backache [id number] Completed 11/15/2014 Yeny Elizabeth NP [address] [place] [address], [phone] , [facility] 5 20:40:22 Sinusiti s [id number] Completed 11/15/2014 Yeny Elizabeth NP [address] [place] [address], [phone] , [facility] 5 20:43:58 Sleep apnea 93203393 Active Not Available [facility] 4 00:24:30 Backache 917758740 Active Not Available [facility] 4 00:24:29 Impaired fasting glycemia 769589147 Active 2017 Not Available [facility] 4 00:24:29 Vitamin D deficien cy 51086328 Active 2020 Not Available [facility] 4 00:24:29 Multiple nodules of lung 715090718 Active 2020 non-canc erous. followed by Dr. Julio lawrence. 09/04/21 note - surveill ance is complete . Not Available [facility] 4 00:24:30 Chronic obstruct wesley pulmonar y disease 25058197 Active 2020 PFT 1 Not Available [facility] 4 00:24:29 Osteoart hritis of right hip joint [id number] 9107 Active 2021 follows w/ [facility]. Not Available [facility] 4 00:24:29 History of subtotal thyroide ctomy 928698410 Active 2021 Not Available [facility] 4 00:24:30 Decrease d body mass index 8610104 Completed 202101/01/2023 CATHERINE Garza [address] [place] [address], [phone] , [facility] 3 13:54:15 Bone density finding 157304945 Active 2022 Not Available [facility] 4 00:24:29 Major depressi on, melancho lic type 181889382 Active 2022 Not Available [facility] 4 00:24:29 History of partial resectio n of colon 788264898 Active 2022 Not Available [facility] 4 00:24:30 Mixed hyperlip idemia 589635895 Active Not Available [facility] 4 00:24:29 Head and neck swelling 006622076 Completed 200206/29/2013 Not Available [facility] 3 02:04:11 Single major depressi ve episode, mild Completed 200611/15/2014 Yeny Elizabeth NP [address] [place] [address], [phone] , [facility] 5 20:42:37 Benign neoplasm of skin of trunk, excludin g scrotum Completed 200506/29/2013 Not Available [facility] 3 02:04:05 [facility] hyperten camryn [id number] Active Not Available [facility] 4 00:24:30 Chronic nonalcoh olic liver disease [id number] Active Not Available [facility] 4 00:24:30 Gastroes ophageal reflux disease [id number] Active Not Available [facility] 4 00:24:29 Non-toxi c uninodul ar goiter [id number] Completed 11/15/2014 Yeny Elizabeth NP [address] [place] [address], [phone] , [facility] 5 20:42:37 Anxiety state [id number] Completed 11/15/2014 Yeny Elizabeth NP [address] [place] [address], [phone] , [facility] [facility] 5 20:42:37 Acute pharyngi tis 081711061 Completed 06/29/2013 Not Available [facility] 3 02:01:17 Allergic rhinitis 42741743 Active Not Available [facility] 4 00:24:30 Epidermo id cyst of skin 230835909 Completed 200506/29/2013 Not Available [facility] 3 02:02:53 Elevated blood-pr essure reading without diagnosi s of hyperten camryn 985226421 Completed 200211/15/2014 Yeny Elizabeth NP [address] [place] [address], [address] , [facility] 5 20:40:22 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 Completed 11/15/2014 Yeny Elizabeth NP [address] [place] [address], [address] , [facility] 5 20:40:22 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 Completed 11/15/2014 Yeny Elizabeth NP [address] [place] [address], [address] , [facility] 5 20:40:22 Acute bronchit is 80641176 Completed 06/29/2013 Not Available [facility] 3 02:01:36 Malaise and fatigue 293363151 Completed 06/29/2013 Not Available [facility] 3 02:00:18 Blood in urine 39936458 Completed 200511/15/2014 Yeny Elizabeth NP [address] [place] [address], [address] , [facility] 5 20:43:58 Carpal tunnel syndrome 02979709 Active 2003 surgery 2010 Not Available [facility] 4 00:24:30 Kidney stone 18166716 Completed 200701/01/2023 CATHERINE Garza [address] [place] [address], [address] , [facility] 3 14:47:07 Ureteric stone 66115555 Completed 200511/15/2014 Yeny Elizabeth NP [address] [place] [address], [address] , [facility] 5 20:43:58 Right upper quadrant pain 678556293 Completed 06/29/2013 Not Available [facility] 3 02:03:18 Sleep disorder 29678613 Completed 11/15/2014 Yeny Elizabeth NP [address] [place] [address], [address] , [facility] 5 20:40:22 Orthosta tic hypotens ion 41479419 Completed 11/15/2014 Yeny Elizabeth NP [address] [place], [address] , [facility] 5 20:40:22 Lymphade nopathy 04949300 Completed 200206/29/2013 Not Available [facility] 3 02:03:13 Tobacco user 876180368 Completed 200211/15/2014 Yeny Elizabeth NP [address] [place], [address] , [facility] 5 20:42:37 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 200511/15/2014 Yeny Elizabeth NP [address] [place] [address], [address] , [facility] 5 20:43:58 Sprain of ankle 32993407 Completed 200406/29/2013 Not Available [facility] 3 02:02:51 Syncope and collapse 875621990 Completed 11/15/2014 Yeny Elizabeth NP [address] [place] [address], [address] , [facility] 5 20:40:22 Joint pain in ankle and foot Completed 200406/29/2013 Not Available [facility] 3 02:01:26 Acute sinusiti s 43583698 Completed 06/29/2013 Not Available [facility] 3 02:02:20 Finding by method 405856374 Completed 200206/29/2013 Not Available [facility] 3 02:01:56 Breast lump 97646915 Completed 200211/15/2014 Yeny Elizabeth NP [address] [place] [address], [address] , [facility] 5 20:40:22 Common cold 15626675 Completed 06/29/2013 Not Available [facility] 3 02:00:28 Mammogra phy abnormal 408093139 Completed 200611/15/2014 Yeny Elizabeth NP [address] [place] [address], [address] , [facility] 5 20:45:31 Idiopath ic peripher al neuropat hy 60601740 Completed 200711/15/2014 Yeny Elizabeth NP [address] [place] [address], [address] , [facility] 5 20:42:37 On examinat ion - a rash Completed 06/29/2013 Not Available [facility] 3 02:00:49 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 Not Available [facility] 4 00:24:30 Dysphagi a 36358085 Completed 11/15/2014 Yeny Elizabeth NP [address] [place] [address], [address] , [facility] 5 20:40:22 Abnormal cervical Papanico laou smear 474374860 Completed 200711/15/2014 Yeny Elizabeth NP [address] [place] [address], , [facility] 5 20:55:49 Non-orga evelyn sleep disorder 452393251 Completed 200511/15/2014 Yeny Elizabeth NP [address] [place] [address], , [facility] 5 20:40:22 Open wound of scalp 800002167 Completed 06/29/2013 Not Available [facility] 3 02:04:18 Low back pain 979486297 Completed 01/01/2023 CATHERINE Garza [address] [place] [address], [address] , [facility] 3 14:47:05 Hypothyr oidism 20950415 Completed 200211/15/2014 Yeny Elizabeth NP [address] [place] [address], [address] , [facility] 5 20:42:37 Mononeur itis 47160508 Completed 200701/01/2023 CATHERINE Garza [address] [place] [address], [address] , [facility] 3 14:47:13 Abnormal findings on diagnost ic imaging of skull and head 637458391 Active Not Available [facility] 4 00:24:29 Pain in limb 28784967 Completed 200406/29/2013 Not Available [facility] 3 02:00:56 Heartbur n 42145730 Completed 06/29/2013 Not Available [facility] 3 02:03:55 Difficul ty speaking Completed 11/15/2014 Yeny Elizabeth NP [address] [place], [address] , [facility] 5 20:40:22 Notes:Some problems listed i n Documents: #[id number], #[id number], #[id number], #[id number], #[id number], #[id number] could not be added to this patient's chart. Please review these documents and add these problems to the patient's chart manually as needed. Problem Notes None recorded. Procedures Surgical History Date Name Laterality Status Provider Name and Address Organization Details Recorded Time 024 Smoking cessation counseling completed Rosa Tran [facility] 06/21/2024 11:57:13 024 Smoking cessation counseling completed Rosa Tran LPN [facility] 05/03/2024 09:03:04 023 Smoking cessation counseling cancelled Rayna Stapleton [facility] 06/29/2023 09:58:39 023 Smoking cessation counseling cancelled Rosa Tran LPN [facility] 03/31/2023 14:40:47 023 Smoking cessation counseling completed CATHERINE Garza [address] [place], [address], [facility] 01/01/2023 14:12:24 023 Medicare Wellness Visit completed Gisselle Cid [facility] 01/01/2023 13:36:59 022 Smoking cessation counseling completed Gisselle Cid [facility] 05/16/2022 14:20:29 022 Smoking cessation counseling completed Everardo Vazquez MD [address] [place], [address], [facility] 04/03/2022 10:41:44 022 Medicare Wellness Visit completed Xiomy Gooden [facility] 12/23/2021 13:50:31 022 Alcohol use screening completed Xiomy Gooden [facility] 12/23/2021 13:50:31 022 Cardiovascular disease risk reduction counseling completed Xiomy Gooden [facility] 12/23/2021 13:50:31 021 Smoking cessation counseling completed Loreta Gloria RN [facility] 07/18/2021 11:27:55 021 Smoking cessation counseling completed Hailey Fleming [facility] 06/05/2021 10:57:46 021 partial lobectomy of thyroid completed Yeny Elizabeth NP [address] [place], [address], [facility] 06/02/2021 12:35:36 021 Biopsy of thyroid completed Dixie Underwood LPN [facility] 01/03/2021 14:35:31 021 Medicare Wellness Visit completed Baldemar Thompson [facility] 12/06/2020 08:49:12 021 COPD Screening completed Baldemar Thompson [facility] 12/06/2020 11:33:22 021 prevention-cardio vascular risk reduction counseling completed Blademar Thompson [facility] 12/06/2020 08:49:12 021 prevention-annual alcohol misuse screening completed Baldemar Thompson [facility] 12/06/2020 08:49:12 021 biopsy of thyroid completed Dixie Underwood LPN [facility] 12/20/2020 15:57:05 021 Medicare Wellness Visit completed Baldemar Thompson [facility] 08/21/2020 08:16:38 021 prevention-cardio vascular risk reduction counseling completed Baldemar Thompson [facility] 08/21/2020 08:16:38 021 prevention-annual alcohol misuse screening completed Baldemar Thompson [facility] 08/21/2020 08:16:38 019 Nebulizer Tx completed Shaquilleirmayang [facility] 09/14/2018 18:02:56 014 Other (specify) completed Yeny Elizabeth NP [address] [place], [address], [facility] 11/15/2014 20:37:49 012 Suture/staple Removal completed Yeny Elizabeth NP [address] [place], [address], [facility] 09/19/2011 17:19:53 011 Carpal Tunnel Surgery completed Yeny Elizabeth NP [address] [place], [address], [facility] 09/12/2011 12:33:44 004 completed Not Available [facility] 06:05:52 Back Surgery completed Yeny alexandre NP [address] [place], [address], [facility] 04/10/2015 11:56:53 repair of tendon completed Dixie Underwood LPN [facility] 12/20/2020 15:57:18 Imaging Results Imaging Date Name Status LastModified by Organiz ation Details LastModified Time 04/24/2023 LDCT, chest, for lung cancer screening completed [facility] [address] [place], [address], 04/28/2023 17:05:43 04/27/2023 MAMMO, screening, tomosynthesis, bilateral completed rafi [facility] (Imaging) [address], [place], [address], 04/27/2023 16:30:52 Procedure Notes None recorded. Medical Equipment None Reported. Allergies Allergen ID Allergen Name Allergen Category Reaction Reaction Severity Criticality Documentation Date Start Date Code Code System Note Provider Name and Address Organization Details Recorded Time 479411 metoprolo l Not available Not available Not available Not available 01/24/2013 6918 RxNorm marito cardi a. Yeny Elizabeth NP [facility] [place], [address], [facility] 3 11:47:43 026642 spironola ctone medicatio n dizziness Not available Not available 01/25/2016 9997 RxNorm Yeny Elizabeth NP [address] [place] [address] [place], [address], [facility] 6 16:15:07 77809 penicilli n G Not available itching Not available Not available 07/30/2009 7980 RxNorm insid e of skin Not Available [facility] 1 06:05:20 518349 bupropion Not available other Not available Not available 01/26/2017 33008 RxNorm nonst op crypopeye gYeny NP [address] [place] [address] [place], [address], [facility] 7 16:46:02 01396 hydrochlo rothiazid e medicatio n other severe Not available 10/25/2011 5487 RxNorm ortho stasi s and synco pe Yeny Elizabeth NP [address] [place], [place] [address], [address], [facility] 2 18:26:45 56636 amlodipin e medicatio n other severe Not available 10/25/2011 74315 RxNorm ortho stasi s and synco pe Yeny Elizabeth NP [address] [place] [address] [place], [address], [facility] 2 18:26:45 96150 lisinopri l medicatio n cough Not available Not available 10/28/2011 63017 RxNorm Yeny Elizabeth NP [address] [place], [address], [facility] 2 11:17:27 [address]3572 Diovan medicatio n other mild Not available 11/10/2011 17964 2 RxNorm diarr hea and insom caridad Yeny Elizabeth, ANITRA [address] [place] [address], [facility] [place], [address], [facility] 2 11:50:20 Medications Name Sig Start Date [...] Not Available Not Available No t [facility] 3326[facility] (PF) 45 mcg (15 mcg x 3)/0.5 mL intramusc ular syringe inject 0.5 millilit er intramus cularly active Not Available Not Available No t Available fluticaso ne 113 mcg-salme terol 14 mcg/actua tion breath activated powdr INHALE 1 PUFF BY MOUTH EVERY 12 HOURS active Not Available Not Available No t Available [facility] 0910-020[facility] (PF) 45 mcg(15 mcg x 3)/0.5 mL [...] Updated DateTime 3 161.29 cm 20 kg/m2 18348.3 3 g 56 /min 142 mm[Hg] 82 mm[Hg] Gisselle Cid [facility] 3 13:45:40 Date Recorded Systolic blood pressure Diastolic blood pressure Provider Name and Address Organization Details Last Updated DateTime 01/01/2023 144 mm[Hg] 82 mm[Hg] CATHERINE Garza [address] [place] [address], [address], [facility] 01/01/2023 14:44:45 Date Recorded Heart rate Systolic blood pressure Diastolic blood pressure Provider Name and Address Organization Details Last Updated DateTime 05/01/2023 52 /min 131 mm[Hg] 86 mm[Hg] Jaida Rosales [facility] 05/01/2023 14:27:03 Date Recorded Body height Heart rate Systolic blood pressure Diastolic blood pressure Provider Name and Address Organization Details Last Updated DateTime 05/18/2023 161.29 cm 50 /min 164 mm[Hg] 76 mm[Hg] Jaimee Lowe RN BSN [facility] 05/18/2023 11:57:49 Date Recorded Body height Provider Name an d Address Organization Details Last Updated DateTime 06/29/2023 161.29 cm Rayna Stapleton [facility] 06/29/2023 09:58:50 Date Recorded Body height Body mass index (BMI) Body weight Heart rate Systolic blood pressure Diastolic blood pressure Provider Name and Address Organization Details Last Updated DateTime 4 161.29 cm 20.3 kg/m2 62385.1 1 g 52 /min 128 mm[Hg] 78 mm[Hg] Minerva Soto [facility] 4 13:56:26 Date Recorded Body height Body mass index (BMI) Body weight Heart rate Systolic blood pressure Diastolic blood pressure Provider Name and Address Organization Details Last Updated DateTime 4 160.02 cm 19.2 kg/m2 63898.4 1 g 49 /min 121 mm[Hg] 65 mm[Hg] Rosa Tran LPN [facility] 4 08:51:37 Date Recorded Body height Body mass index (BMI) Body weight Heart rate Systolic blood pressure Diastolic blood pressure Provider Name and Address Organization Details Last Updated DateTime 4 160.02 cm 19.6 kg/m2 27302.0 3 g 56 /min 136 mm[Hg] 74 mm[Hg] Rosa Tran LPN [facility] 4 13:55:04 Date Recorded Systolic blood pressure Diastolic blood pressure Provider Name and Address Organization Details Last Updated DateTime 01/28/2023 121 mm[Hg] 81 mm[Hg] CATHERINE Garza [address] [place] [address], [address] 02/06/2023 16:28:51 Date Recorded Systolic blood pressure Diastolic blood pressure Systolic blood pressure Diastolic blood pressure Provider Name and Address Organization Details Last Updated DateTime 05/21/2023 148 mm[Hg] 84 mm[Hg] 160 mm[Hg] 97 mm[Hg] [facility] 3 15:52:51 Date Recorded Systolic blood pressure Diastolic blood pressure Systolic blood pressure Diastolic blood pressure Provider Name and Address Organization Details Last Updated DateTime 05/22/2023 152 mm[Hg] 90 mm[Hg] 171 mm[Hg] 87 mm[Hg] Jatin Stalpeton [facility] 3 15:53:30 Date Recorded Systolic blood pressure Diastolic blood pressure Provider Name and Address Organization Details Last Updated DateTime 07/27/2023 117 mm[Hg] 78 mm[Hg] Radha Saini [facility] 07/27/2023 14:36:24 Social History Question Answer Notes LastModified by Organization Details LastModified Time Tobacco Smoking Status Current Some Day Smoker PT currently smoking occasionally ALISSA Mulligan [facility] 04/03/2022 09:45:37 What Is Your Level [...] 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 6-10yearssinc elastcigarett e [email or web address] Information not available 06/05/2021 How Many Days [...] Many Years Have You Smoked Tobacco? 41 [email or web address] Information not available 06/05/2021 Do You Or [...] Td(adult) unspecified formulation 6 completed Not Available [facility] 09/26/2023 00:24:31 influenza, unspecified formulation 7 completed Not Available [facility] 09/26/2023 00:24:31 Influenza, split virus, trivalent, preservative 2 completed Not Available [facility] 08/27/2019 02:32:24 Tdap 3 completed Not Available [facility] 08/27/2019 02:28:48 Novel [id number] 9 completed Not Available [facility] 08/27/2019 02:27:45 Influenza, split virus, trivalent, PF 3 completed Not Available [facility] 08/27/2019 02:18:58 Influenza, split virus, quadrivalent, PF 5 completed Not Available [facility] 08/27/2019 02:19:46 zoster live 5 completed Not Available [facility] 08/27/2019 02:19:45 influenza, unspecified formulation 6 completed Not Available [facility] 09/26/2023 00:24:31 influenza, unspecified formulation 7 completed Not Available [facility] 09/26/2023 00:24:31 Influenza, high-dose, quadrivalent, PF 0 completed Janee Bai LPN null, [facility] 05/28/2020 08:46:57 pneumococcal polysaccharide PPV23 0 completed BLANCA DOYLE NP [address] [place] [address], [address], [facility] 06/20/2020 15:02:02 Influenza, split virus, trivalent, preservative 0 completed Not Available [facility] 08/27/2019 02:17:47 COVID-19, mRNA, LNP-S, PF, 30 mcg/0.3 mL dose 1 completed Not Available [facility] 09/26/2023 00:24:30 COVID-19, mRNA, LNP-S, PF, 30 mcg/0.3 mL dose 1 completed Not Available [facility] 09/26/2023 00:24:30 Td (adult), 2 Lf tetanus toxoid, preservative free, adsorbed 3 completed CATHERINE Garza [address] [place] [address], [address], [facility] 01/02/2023 07:56:47 Influenza, high-dose, quadrivalent, PF 1 completed Not Available [facility] 09/26/2023 00:24:30 COVID-19, mRNA, LNP-S, PF, 30 mcg/0.3 mL dose 1 completed Not Available [facility] 09/26/2023 00:24:31 COVID-19, mRNA, LNP-S, PF, 30 mcg/0.3 mL dose 2 completed Not Available [facility] 09/26/2023 00:24:31 zoster recombinant 2 completed Not Available [facility] 09/26/2023 00:24:30 Influenza, split virus, quadrivalent, preservative 2 completed Not Available [facility] 09/26/2023 00:24:30 Past Encounters Encounter ID Performer Location Encounter Start Date Encounter Closed Date Diagnosis/Indication Diagnosis SNOMED-CT Code Diagnosis ICD10 Code Diagnosis Note [id number] [facility], OFFICE [address] [place] [address] 10/06/2002 15:52:18 08/30/2008 02:02:29 [id number] Radiology , [address] [address] 10/06/2002 00:00:00 08/30/2008 02:02:29 [id number] Radiology , [address] [address] 10/06/2002 16:36:55 08/30/2008 02:02:29 [id number] LAB - [address] [address] 10/07/2002 15:46:52 08/30/2008 02:02:29 [id number] LAB - [address] [address] 11/08/2002 16:26:26 08/30/2008 02:02:29 [id number] [facility], OFFICE [address] [place] [address] 11/08/2002 15:17:41 08/30/2008 02:02:29 [id number] , [facility], OFFICE [address] [place] [address] 12/08/2002 15:25:39 08/30/2008 02:02:29 [id number] LAB - [facility] [address] [place] [address] 12/08/2002 15:51:11 08/30/2008 02:02:29 [id number] Radiology , [address] [place] [address] 12/20/2002 14:48:00 08/30/2008 02:02:29 [id number] Radiology , [address] [place] [address] 12/20/2002 00:00:00 08/30/2008 02:02:29 [id number] , [facility], OFFICE [address] [place] [address] 03/06/2003 10:13:04 08/30/2008 02:02:29 [id number] , [facility], OFFICE [address] [place] [address] 11/22/2003 12:59:27 11/22/2003 14:55:43 [id number] Radiology , [address] [address] 12/26/2003 15:20:58 08/30/2008 02:02:29 [id number] Radiology , [facility] [address] [place] [address] 12/26/2003 00:00:00 08/30/2008 02:02:29 [id number] [facility], OFFICE [address] [place] [address] 01/19/2004 14:11:55 01/19/2004 15:54:03 [id number] [facility], [address] [place] [address] 03/27/2004 10:47:20 03/28/2004 09:21:52 [id number] LAB - [address] [address] 10/15/2004 14:29:29 10/15/2004 14:29:57 [id number] , [facility], OFF[address] [place] [address] 12/11/2004 15:06:41 12/11/2004 17:50:16 [id number] Radiology , [facility] [place] [address] 12/11/2004 16:00:54 12/12/2004 08:22:27 [id number] Radiology , [facility] [place] [address] 12/11/2004 00:00:00 08/30/2008 02:02:29 [id number] Radiology , [facility] Annalisa [facility] QASIM Villalobos[address] 01/02/2005 14:50:32 08/30/2008 02:02:29 [id number] Radiology , [facility] Annalisa [facility] [place] [address] 01/02/2005 00:00:00 08/30/2008 02:02:29 [id number] FP [facility], OFFICE [address] [facility] [address] 05/13/2005 14:40:24 08/30/2008 02:02:29 [id number] Radiology , [address] [place] [address] 05/13/2005 15:36:22 08/30/2008 02:02:29 [id number] Radiology , [address] [place] [address] 05/13/2005 00:00:00 08/30/2008 02:02:29 [id number] Physical Therapy, [address] [place] [address] 05/26/2005 12:56:12 08/30/2008 02:02:29 [id number] Physical Therapy, [address] [place] [address] 06/11/2005 15:17:06 08/30/2008 02:02:29 [id number] FP MIC, OFFICE [address] [facility] [address] 12/24/2005 15:41:01 12/25/2005 08:44:40 [id number] [facility] [address] [facility] [address] 12/24/2005 15:41:01 12/25/2005 08:44:40 [id number] Radiology , [address] [place] [address] 01/15/2006 14:31:58 01/16/2006 09:26:07 [id number] Radiology , [address] [place] [address] 01/15/2006 00:00:00 08/30/2008 02:02:29 [id number] FP, [facility], OFFICE [address] [place] [address] 04/22/2006 15:44:51 04/23/2006 08:28:48 [id number] LAB - [facility] [address] [place] [address] 04/22/2006 16:15:54 04/22/2006 16:16:11 [id number] , [facility], OFFICE [address] [place] [address] 04/30/2006 15:02:17 05/01/2006 08:35:41 [id number] Radiology , [facility] [address] [facility] [address] 05/31/2007 14:16:16 06/01/2007 09:45:04 [id number] Radiology , [facility] [address] [place] [address] 05/31/2007 00:00:00 08/30/2008 02:02:29 [id number] , [facility], OFFICE [address] [place] [address] 06/01/2007 15:54:13 08/30/2008 02:02:29 [id number] , [facility], OFFICE [address] [place] [address] 07/06/2007 15:59:53 08/30/2008 02:02:29 [id number] Radiology , [facility] [address] [place] [address] 07/06/2007 15:26:24 07/07/2007 09:44:25 [id number] Radiology , [address] [address] 07/06/2007 00:00:00 08/30/2008 02:02:29 [id number] Radiology , [facility] [address] [place] [address] 07/06/2007 17:40:10 07/07/2007 09:44:33 [id number] Radiology , [facility] [address] [place] [address] 07/06/2007 00:00:00 08/30/2008 02:02:29 [id number] FP, [facility], OFFICE [address] [place] [address] 12/20/2007 09:22:27 08/30/2008 02:02:29 [id number] LAB - [facility] [address] [place] [address] 12/20/2007 09:59:25 12/20/2007 09:59:40 [id number] Radiology , [facility] [address] [place] [address] 06/24/2008 11:14:13 06/26/2008 09:15:42 [id number] LAB - [facility] [address] [facility] [place] [address] 6 07/24/2008 12:24:22 07/24/2008 12:24:31 [id number] FP, MIC, OFFICE 70 [place] [address] 6 07/24/2008 11:11:08 08/30/2008 02:02:29 [id number] Radiology , [facility] 70 [facility] [address] 6 07/30/2009 12:03:57 07/31/2009 14:41:39 [id number] FP, [facility], OFFICE [address] [place] [address] 6 07/30/2009 12:53:39 08/01/2009 09:41:41 [id number] FP, MIC, OFFICE [address] [place] [address] 6 09/03/2009 10:36:11 09/05/2009 09:01:25 [id number] FP, [facility], OFFICE [address] [place] [address] 6 02/18/2010 16:06:54 02/21/2010 11:14:25 [id number] FP, [facility], OFFICE [address] [place] [address] 6 03/04/2010 10:51:19 03/05/2010 09:13:07 [id number] FP, MIC, OFFICE [address] [place] [address] 6 04/08/2010 10:49:52 04/10/2010 12:33:40 [id number] FP, MIC, OFFICE [address] [place] [address] 6 05/06/2010 11:06:59 05/09/2010 08:14:35 [id number] FP, MIC, OFFICE [address] [place] [address] 6 09/04/2010 10:12:54 09/09/2010 09:54:47 [id number] Radiology , [facility] 70 [place] [address] 6 09/04/2010 11:35:48 09/05/2010 13:47:30 [id number] FP, E[facility], OFFICE [address] [facility] [place] [address] 6 02/17/2011 15:12:45 02/17/2011 16:18:23 [id number] FP, EHC, OFFICE [address] [place] [facility] [place] [address] 6 03/03/2011 11:25:18 03/03/2011 12:35:48 [id number] FP, EHC, OFFICE [address] [place] [facility] [place] [address] 6 05/05/2011 11:10:16 05/05/2011 12:18:53 [id number] FP, EHC, OFFICE [address] [place] [facility] [place] [address] 6 06/16/2011 11:24:27 06/16/2011 12:27:11 [id number] FP, C, OFFICE [address] [place] [facility] [place] [address] 6 09/12/2011 11:49:49 09/12/2011 12:53:46 [id number] FP, C, OFFICE [address] [place] [facility] [place] [address] 6 09/15/2011 10:11:06 09/15/2011 11:20:27 [id number] Radiology , C [address] [place] [facility] [place] [address] 6 09/15/2011 11:18:59 09/22/2011 11:25:46 [id number] Radiology , C [address] [place] [facility] [place] [address] 6 09/15/2011 11:22:42 09/22/2011 11:26:39 [id number] Radiology , C [address] [place] [facility] [place] [address] 6 09/15/2011 13:02:14 09/22/2011 11:27:06 [id number] FP, EHC, OFFICE [address] [place] [facility] [address] 6 09/19/2011 16:05:15 09/19/2011 17:14:17 [id number] FP, EHC, OFFICE [address] [place] [facility] [place] [address] 6 10/16/2011 11:04:47 10/16/2011 12:36:29 [id number] , [facility], OFFICE [address] [place] [facility] [place] [address] 6 10/23/2011 10:47:33 10/23/2011 11:31:44 [id number] , C, OFFICE [address] [place] [facility] [place] [address] 6 10/28/2011 10:53:53 10/28/2011 11:41:32 [id number] , [facility], OFFICE [address] [place] [facility] [place] [address] 6 11/10/2011 11:00:59 11/10/2011 12:05:22 [id number] , [facility], OFFICE [address] [place] [facility] [place] [address] 6 12/22/2011 11:30:06 12/22/2011 12:11:38 [id number] Balbir Cruz MD Radiology , [facility] [address] [facility] [place] [facility] [place] [address] 05/03/2012 11:01:39 05/04/2012 10:48:40 [id number] Yeny Elizabeth NP , [facility], OFFICE [address] [place] [facility] [place] [address] 6 05/11/2012 11:43:11 05/11/2012 12:45:41 [id number] Stephy Mccloud CMA FP, [facility], OFFICE [address] [place] [facility] [place] [address] 6 05/13/2012 06:44:42 05/13/2012 16:24:11 [id number] Stacy Echeverria , [facility], OFFICE [address] [place] [facility] [place] [address] 6 10/11/2012 14:33:17 10/11/2012 17:18:16 [id number] Antonio Urbano MD Radiology , [facility] [address] [place] [facility] [place] [address] 6 10/18/2012 11:02:02 10/19/2012 10:11:53 [id number] Yeny Elizabeth NP FP, C, OFFICE [address] [place] [facility] [place] [address] 6 11/29/2012 11:09:20 11/29/2012 12:09:21 [id number] Zoila Cooper , [facility], OFFICE [address] [place] [address] 6 12/27/2012 11:13:39 12/27/2012 12:12:31 [id number] ANITRA Guidry, [facility], OFFICE [address] [place] [address] 6 01/24/2013 10:58:06 01/24/2013 11:59:15 [id number] Jovita Cooper MA , [facility], OFFICE [address] [place] [address] 6 05/02/2013 10:58:25 05/02/2013 12:23:22 Acute bronchitis 51295957 Joint pain 38903634 Influenza vaccine needed 0345755294 060 [id number] Yeny Elizabeth NP , [facility], OFFICE [address] [place] [address] 6 12/26/2013 15:36:32 12/26/2013 16:51:55 Adult health examination 127204499 see Risk Assessment and Lifestyle Change Counseling section above Allergic rhinitis 38776111 Backache 337417193 Sinusitis 67607409 Screening for malignant neoplasm of cervix 884008172 Thyroid nodule 438334007 [id number] Yeny Elizabeth NP , [facility], OFFICE [address] [place] [address] 6 01/22/2015 13:40:10 01/22/2015 14:50:12 Adult health examination 140970962 see Risk Assessment and Lifestyle Change Counseling section above Benign ess ential hypertension 2009960 Blood pressure at goal Backache 164615133 Major depr ession, melancholic type 427896765 Gastroesop hageal reflux disease 110107309 Sleep apnea 72785678 [id number] Nimo HICKMAN, [facility], OFFICE [address] [place] [address] 6 04/10/2015 11:01:34 04/10/2015 12:19:45 Lifestyle 894131191 Benign ess ential hypertension 1057756 Blood pressure at goal Backache 284447210 Varicella vaccination 68480022 Influenza vaccine needed 5319204560 058 [id number] VICK, [facility], OFFICE [address] [place] [address] 6 04/27/2015 11:53:26 04/27/2015 12:51:23 Backache 327727452 Benign ess ential hypertension 0569027 Blood pressure at goal Will be getting another 24hr monitor by nephsarika cheng due to labile BP, difficult to control [id number] Rhianna Pabon LPN FP, [facility], OFFICE [address] [place] [address] 6 06/04/2015 11:08:23 06/04/2015 14:55:19 Tuberculosis screening 169430083 Z11.1 [id number] Rhianna Pabon LPN FP, C, OFFICE [address] [place] [address] 6 06/18/2015 11:15:27 06/18/2015 13:05:30 Tuberculosis screening 230298055 Z11.1 [id number] ANITRA Gudiry, C, OFFICE [address] [place] [address] 6 07/26/2015 11:30:59 07/26/2015 12:23:47 Benign essential hypertension 9351862 I10 Blood pressure NOT at goal. [id number] ANITRA uGidry, [facility], OFFICE [address] [place] [address] 6 01/25/2016 15:49:01 01/29/2016 10:59:33 Adult health examination 780639489 Z00.00 see Risk Assessment and Lifestyle Change Counseling section above Benign ess ential hypertension 2913479 I10 Blood pressure NOT at goal. Mixed hyperlipidemia 267 883882 E78.2 [id number] Yeny Elizabeth NP FP, C, OFFICE [address] [place] [address] 6 02/29/2016 09:37:18 02/29/2016 10:27:55 Hand pain 66825853 M79.642 Benign ess ential hypertension 5288457 I10 Blood pressure NOT at goal. [id number] ANITRA Guidry, C, OFFICE [address] [place] [address] 6 07/28/2016 14:23:55 07/28/2016 15:14:02 Benign essential hypertension 1747607 I10 Blood pressure NOT at goal despite 3 agents. Can't tolerate spironolac tone. Mixed hyperlipidemia 267 676700 E78.2 Acute uppe r respiratory infection 22548634 J06.9 [id number] Yeny Elizabeth NP FP, [facility], OFFICE [address] [place] [address] 6 01/26/2017 15:38:43 01/26/2017 17:01:04 Adult health examination 123578923 Z00.00 see Risk Assessment and Lifestyle Change Counseling section above Benign ess ential hypertension 7441507 I10 Blood pressure at goal. Backache 391193267 M54.9 [id number] Yeny Elizabeth NP , [facility], OFFICE [address] [place] [address] 6 05/19/2017 15:23:45 05/19/2017 16:05:28 Cough 30649434 R05 Benign ess ential hypertension 9544215 I10 Blood pressure not at goal. [id number] Yeny Elizabeth NP , [facility], OFFICE [address] [place] [address] 6 06/26/2017 07:49:26 06/26/2017 08:38:01 Benign essential hypertension 9694876 I10 Blood pressure at goal [id number] MD VICK Cardenas, [facility], OFFICE [address] [place] [id number] 6 02/16/2018 15:32:13 02/16/2018 16:54:41 Adult health examination 472658602 Z00.00 see Risk Assessment and Lifestyle Change Counseling section above Depression screening 171 352641 Z13.89 depression screening tool administer ed, entered into emr, scored and discussed, time greater than 7.5 minutes Benign ess ential hypertension 3902196 I10 Blood pressure at goal Cough 19682794 R05 Using ProAir occasional ly Screening for malignant neoplasm of colon 993267691 Z12.11 Referral for a DIRECT booked colonoscop y. This patient is a healthy ASA Class 1 or 2 patient (only mild systemic disease), or a STABLE, well controlled insulin dependent diabetic. They do not have serious cardiac disease ie [place]/angiopl asty within 1 year, symptomati c CHF; renal failure with CKD 4 or 5; take Coumadin, Plavix, Aggrenox, etc. Sleep apnea 26084030 G47 .30 Please get back to me with name of Cpap provider, will update orders so you can use it again. Impaired f asting glycemia 545729035 R73.01 Blood sugar today 84, continue to monitor [id number] Walter López MD FP, [facility], OFFICE [address] [place] [address] 6 09/14/2018 17:17:47 09/16/2018 11:01:46 Mixed hyperlipidemia 826543265 E78.2 Benign ess ential hypertension 6300843 I10 Blood pressure at goal Cough 60214885 R05 Using ProAir occasional ly Backache 760182485 M54.9 Wheezing 96694521 R06.2 Normal grief reaction 27 8983144 F43.20 [id number] Boo Christine MD FP, [facility], OFFICE [address] [place] [address] 6 10/05/2018 15:20:09 10/05/2018 16:27:59 Benign essential hypertension 3250590 I10 Thyroid nodule 953192344 E04.1 Cough 87410261 R05 [id number] Walter López MD FP, [facility], OFFICE [address] [place] [id number] 6 11/02/2018 16:39:52 11/03/2018 09:00:16 Benign essential hypertension 2648308 I10 [id number] Rupinder Eagle DNP, [employer] FP, [facility], OFFICE [address] [place] [id number] 6 11/25/2019 13:48:50 11/28/2019 14:47:15 Urinary tract infectious disease 75039600 N39.0 Patient instructed to push fluids, to follow up for persistent or worsening symptoms or fever or back pain.Treat for presumptiv e infection w/ bactrim.Co nsider musculoske latal vs stone. If no improvemen t will need imaging and cultures. [id number] Yeny Elizabeth NP FP, [facility], OFFICE [address] [place] [id number] 6 11/30/2019 15:08:40 12/02/2019 13:07:04 Low back pain 462415858 M54.5 Nausea 083023128 R11.0 Night sweats 84971844 R6 1 [id number] Rhianna Murray LPN , [facility], OFFICE [address] [place] [id number] 6 05/25/2020 16:15:13 05/28/2020 13:23:56 Active or passive immunization 010575537 Z23 [id number] Lynda Stewart PA-C , [facility], OFFICE [address] [place] [id number] 6 06/20/2020 09:51:52 06/22/2020 12:18:11 Abdominal pain 68828442 R10.9 New concern, unclear if all symptoms related to same cause, ? cystitis and/or kidney stones given lower abdominal pain with radiation to groin with back pain, POCT urine with trace leuks only, plan to send for culture. Mass palpated in periumbili laney area ? hernia, plan to obtain CT of abdomen and pelvis to further assess all concerns. Screening mammography 24 473134 Z12.31 Routine screening due, patient agreeable, would like to schedule with G, aware of wait time. Active or passive immunization 081713828 Z23 Depression screening 171 741289 Z13.31 - depression screening tool administer ed, entered into emr, scored and discussed, time greater than 7.5 minutes-Co ntinue sertraline [id number] Yeny Elizabeth NP , [facility], OFFICE [address] [place] [address] 6 07/03/2020 15:32:37 07/04/2020 18:49:34 Essential hypertension 13940298 I10 Major depr ession, melancholic type 762842588 F32.9 Multiple n odules of lung 250179242 R91.8 Liver mass 826486639 R16 .0 [id number] Boo Christine MD , [facility], OFFICE [address] [place] [id number] 6 08/21/2020 11:04:42 08/21/2020 14:03:59 Essential hypertension 35910313 I10 Vitamin D deficiency 347 31176 E55.9 Thyroid nodule 359170129 E04.1 Multiple n odules of lung 780605604 R91.8 diffuse, bilateral Tremor 35905223 R25.1 L hand 4th & 5th fingers. [id number] , [facility], OFFICE [address] [place] [address] 6 10/23/2020 09:00:28 10/24/2020 16:08:20 Essential hypertension 06858396 I10 Mixed hyperlipidemia 267 077315 E78.2 Major depr ession, melancholic type 758965995 F32.9 sertraline 200mg daily. Multiple n odules of lung 810758324 R91.8 diffuse, bilateral Vitamin D deficiency 347 10932 E55.9 [id number] Yeny Elizabeth NP , [facility], OFFICE [address] [place] [address] 6 12/06/2020 11:27:07 12/07/2020 09:46:33 Essential hypertension 04710204 I10 Mixed hyperlipidemia 267 282022 E78.2 Chronic ob structive pulmonary disease 40124067 J44.9 Adult heal th examination 303376161 Z00.00 see Risk Assessment and Lifestyle Change Counseling section above Counseling 129768834 Z71 .9 including cardiovasc ular risk reduction counseling Depression screening 171 908676 Z13.31 depression screening tool administer ed, entered into emr, scored and discussed, time greater than 7.5 minutes. Screening reviewed with pt. treated for depression with sertraline . Screening for alcohol abuse 221727446 Z13.39 [id number] Everardo Vazquez MD Endocrino logy, [facility] [address] [place] [address] 12/20/2020 15:28:49 12/21/2020 06:31:01 Thyroid nodule 423589876 E04.1 Right nodule. Cytology from [facility] reports benign . This typically [...] genetic analysis. Multiple n odules of lung 581906562 R91.8 Adds to complexity . Concern about whether we can definitive ly link lung nodules to a known primary. Chronic ob structive pulmonary disease 03584504 J44.9 Clinically . Recent PFTs (08/30) c/w emphysema or interstiti al lung disease. Vitamin D deficiency 347 85583 E55.9 Level of 13 (07/29). Given 50K weekly x 1 month. No f/u orders placed. [id number] Everardo Vazquez MD Endocrino logy, [address] [address] 12/27/2020 12:55:55 12/28/2020 06:32:34 [id number] Everardo Vazquez MD Endocrino logy, [facility] [address] [place] [address] 01/03/2021 14:30:30 01/08/2021 13:15:42 Thyroid nodule 018463675 E04.1 Right nodule. Cytology: [place] IV: Suspicious for Follicular Neoplasm. Genomic sequencing meat blender pending. Also expression atlas pending. Reviewed ramificati [...] these options are consistent with cytology from [facility] which reported results as benign . While thyroid CA can metastasiz e to lung, one would typically expect to see adenopathy . She has not had significan t apparent adenopathy on exam. Have discussed case with Pulmonary. Genetic sequencing and expression atlas pending. Multiple n odules of lung 415383197 R91.8 Adds to complexity . Concern about whether we can definitive ly link lung nodules to a known primary. Chronic ob structive pulmonary disease 51277129 J44.9 Clinically . Recent PFTs (08/30) c/w emphysema or interstiti al lung disease. Vitamin D deficiency 347 95522 E55.9 Level of 13 (07/29). Given 50K weekly x 1 month. No f/u orders placed. 12/28: suggest get vit D level checked. [id number] Yeny Elizabeth NP , [facility], OFFICE [address] [place] [address] 06/05/2021 10:44:10 06/05/2021 11:39:08 Essential hypertension 09679132 I10 Chronic ob structive pulmonary disease 68940428 J44.9 Cigarette smoker 9289273 7 F17.210 Tobacco user 138858889 Z 72.0 Screening for osteoporosis 820294632 Z13.820 Low back pain 483576648 M54.50 Multiple n odules of lung 626055978 R91.8 diffuse, bilateral Thyroid nodule 210676430 E04.1 Benign ess ential hypertension 9829240 I10 [id number] Lynda Stewart PA-C , [facility], OFFICE [address] [place] [address] 6 07/08/2021 11:51:46 07/16/2021 09:19:52 Spasm 81124110 R25.2 describes muscle jerking like spasmrecen t thyroidect yeni, r/o parathyroi d injury - check [place] magnesiumi f all normal, she wants to talk to dr. Vazquez at upcoming appt and ask if he thinks this is related somehow to her thyroid. I advised her to let me know if he states it isn't. 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 Should have TSH/free T4 checked (per d/c summary) and see Dr. Vazquez as scheduled. She will have labs today. [id number] Everardo Vazquez MD Endocrino log, [address] [address] 07/18/2021 11:18:55 07/26/2021 06:28:00 Multiple nodules of lung 624329187 R91.8 Adds to complexity . Concern about whether we can definitive ly link lung nodules to a known primary. Chronic ob structive pulmonary disease 12588015 J44.9 Clinically . Recent PFTs (08/30) c/w emphysema or interstiti al lung disease.Di scussed this in relation to smoking and reasons to quit. Vitamin D deficiency 347 07335 E55.9 D= 36.4 (06/30); was 33 (01/28); was 13 (07/29). Had 50K weekly x 1 month.Take s 1-2 daily supplement (07/30). Cigarette smoker 4635527 7 F17.210 Since no clear evidence of metastatic disease, discussed risks/harm s of smoking. Tobacco user 750359446 Z 72.0 Sweating 405533166 R61 Some diarrhea afterwards . Check catechols and also 5hiaa. 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 Not on repalcemen t. check TFTs. [id number] GLENROY MARTI MD , [facility], OFFICE [address] [place] [address] 6 10/31/2021 13:22:38 11/11/2021 09:15:16 Pre-surgery evaluation 165713406 Z01.818 Summary: has low rahel-opera tive risk [...] prophylaxi s as per surgical protocol Backache 226959076 M54.9 rare use of tramadol - refill sent [id number] GLENROY MARTI MD , [facility], OFFICE [address] [place] [address] 12/23/2021 13:29:28 12/23/2021 14:49:50 Adult health examination 162029735 Z00.00 See risk assessment portion of HPI Counseling 407150681 Z71 .9 including cardiovasc ular risk reduction counseling Cardiovasc ular risk reduction was discussed including benefits and risks of aspirin, exercise goals, healthy eating and healthy weight . Discussion greater than 7.5 minutes. Depression screening 171 619183 Z13.31 depression screening tool administer ed, entered into emr, scored and discussed, time greater than 7.5 minutes Screening for alcohol abuse 395819644 Z13.39 An audit alcohol screening test was performed and scored. Patient was asked about alcohol use, advised about risks of alcohol, and personal risk was assessed, patient agreed to plan and given informatio n about available resources if needed. Discussion including screening and scoring less than 7.5 minutes Mixed hyperlipidemia 267 369998 E78.2 Cholestero l is at goal. LDL 65Continue to work on diet and exercise as discussed Essential hypertension 33259373 I10 Controlled . Continue current regimen. Pain in ri ght hip joint 1143664037 36619 M25.551 xrays r/o DJDES Tylenolhad been told not to take NSAIDs due to hypertensi on. Used to prefer Aleve. If pain is not controlled with Tylenol, will try Aleve (or prescripti on naproxen 500 mg) as needed - let me know. Major depr ession, melancholic type 702530642 F33.1 continue sertraline , follow up with therapist. Has been sensitive to other meds so would prefer to stay on same dose. I need a schedule, I need someplace to go. No thoughts of harming herself. Screening mammography 24 329898 Z12.31 Chronic ob structive pulmonary disease 87664239 J44.9 breathing OK - smoking 1 pk/weekCT showed Upper lobe predominan t centrilobu lar emphysema in 01/25/21 at [facility].uses Breo every other day or every 3 days. Legs get stiff when she uses this daily.No glaucoma Mass of axilla 152313840 R22.2 felt last but none now. ?lymph nodeNothin g palpable todayUS ordered [id number] Everardo Vazquez MD Endocrino logy, [facility] [address] [place] [address] 04/03/2022 09:31:23 04/03/2022 13:42:46 Sweating 108847899 R61 Has c/o diarrhea and intermitte nt sweats. Had normal catechols. 5hiaa was slightly high (issues with urine pH collection ). Not high enough to be suspicious for carcinoid. If sx persist, may need to repeat. Multiple n odules of lung 068187356 R91.8 Adds to complexity . Concern about whether we can definitive ly link lung nodules to a known primary. Chronic ob structive pulmonary disease 35540243 J44.9 Clinically . Recent PFTs (08/30) c/w emphysema or interstiti al lung disease.Di scussed this in relation to smoking and reasons to quit. Vitamin D deficiency 347 40469 E55.9 D= 47.5 (03/31); was 36.4 (06/30); was 33 (01/28); was 13 (07/29). Was taking 1-2 daily supplement but lately more prn. Cigarette smoker 0560527 7 F17.210 Since no clear evidence of metastatic disease, discussed risks/harm s of smoking. 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 Not on replacemen t. Check TFTs. [id number] CATHERINE Garza , [facility], OFFICE [address] [place] [address] 05/16/2022 14:08:49 05/16/2022 14:58:54 Tobacco user 907427000 Z72.0 not discussed today, will discuss at f/usmorome occasional ly per chart review Active or passive immunization 519927280 Z23 pt already had flu vaccinerem inded about shingles vaccine Pain in right hand 92530 74541 00710 M79.641 s/p fall 2 weeks agorepeat hand/wrist xrays given recurrent edema and painok to continue compressio n brace, rest, ice in the interim Pleuritic pain 9521885 R 07.81 new as of last nightreass uring examencour aged to continue monitoring and call with any changes/wo rsening Pain in ri ght hip joint 7091147528 22182 M25.551 May xray reviewed - moderate degenerati ve changesPT and ortho referrals sentcall as needed Bone density finding 385 687125 M85.80 results 03/2022 reviewed - low bone massFRAX score reviewed: 10 y risk major risk 11%, hip 3.3%discus sed tx options, for now will optimize vitamin D, calcium, and weight-godwin ring and muscle-str engthening repeat scan 2 years Urgent rosalino alan to urinate [id number] R39.15 POC UA showing trace leuksnot enough urine for culture at appt, will have pt return for this Chronic ob structive pulmonary disease [id number] J44.9 looking into new pulmonolog ist, has recs from Dr. Vazquez1x refill sent of Trelegy so she has it on hand in the interim Backache [id number] M54.9 takes tramadol sparingly as needed for chronic back painlast fill 01/2022 per masspatwil l reassess at f/u [id number] CATHERINE Garza , [facility], OFFICE [address] [facility] [place] [facility] [place] [address] 01/01/2023 13:14:36 01/01/2023 14:31:56 Adult health examination [id number] Z00.00 Depression screening 171 307099 Z13.31 depression screening tool administer ed. as below. Screening for alcohol abuse 450135063 Z13.39 Alcohol use screening tool administer ed. rec max 7 drinks/wee k. Essential hypertension 15075051 I10 consistent ly above goalincrea se nifedipine to 90mg daily (currently taking 60mg daily)f/u 1 month to reassess Mixed hyperlipidemia 267 551787 E78.2 Cholestero l is at goalContin ue to work on diet and exercise as discussed Screening mammography 24 522907 Z12.31 due Active or passive immunization 090744147 Z23 reminded about shingles vaccinetet anus vaccine will do Increased frequency of urination 034706751 R35.0 POC UA negative, unable to send for culture due to limited supplycall with any new/worsen ing symptoms Chronic ob structive pulmonary disease 44550999 J44.9 needs referral to new pulmonolog ist, she will get the name and let us know where she'd like to godoing well otherwise with current inhaler regimen Impaired f asting glycemia 480470649 R73.01 improving, recent A1C 5.2 Bone density finding 385 517650 M85.80 results 03/2022 reviewed - low bone massFRAX score reviewed: 10 y major risk 11%, hip 3.3%prefer s to continue to optimize vitamin D, calcium, and weight-godwin ring and muscle-str engthening repeat scan 2 years Major depr ession, melancholic type 889407839 F33.1 reports acute on chronic depression does virtual therapy which helpsalso continues on sertraline Tobacco user 318047094 Z 72.0 We discussed your smoking today for more than 3 minutes. Cigarette use is the leading cause of preventabl e disease, disability , and in the [place]. We talked about tools and medication s available to help you in smoking cessation. We discussed utilizing our smoking cessation horse riding coach or instructor and online resources. Your personal goal: to quit! Multiple n odules of lung 833040785 R91.8 per problem list/forme r PCP CE - non-cancer ous. followed by Dr. Leavitt . 09/04/21 note - surveillan ce is complete. pt interested in low dose CT screening to use as f/u as well, as above. Candidiasis of mouth 797 18945 B37.0 will treat with darian per patient preference continue good oral hygiene after inhaler usecall if not resolving History of subtotal thyroidectomy 341347401 Z90.09 original concern for metastatic CA as multiple lung nodules, PET lit up mass in thyroid, now s/p subtotal thyroidect yeni, not on medication , following with Dr. Vazquez regularly History of partial resection of colon 894639393 Z90.49 pre cancerous polyp removal 2008, gets colonoscop ies q5 years [id number] Jaimee Lowe RN BSN , [facility], [address] [place] [address] 05/18/2023 11:17:42 05/19/2023 14:44:12 [id number] JANEE SHIELDS MD , [facility], [address] [place] [address] 02/05/2024 13:40:32 02/05/2024 17:40:33 Cough 48999825 R05.9 Essential hypertension 34842668 I10 Has been elevated in the past so will monitor closely. Reduce nifedipine to 60 mg daily. Continue losartan and labetolol. Mixed hyperlipidemia 267 193194 E78.2 She would like to try discontinu ing the statin. Agreed this is fine but we should recheck her cholestero l in a month. Lightheadedness 31555838 8 R42 Mostly with standing. I think [...] the beta fidel. Unintentio nal weight loss 164095162 R63.4 Thinks this was due to breaking her teeth, sore teeth. Advised her to continue to use her protein shakes. Will check some labs as above. Will need to monitor. Chronic ob structive pulmonary disease 77869497 J44.9 Continue inhalers and follow up with pulm. Refilled albuterol - see below. Abnormal gait 10466040 R 26.9 She does have a stiff and tentative gait. Unclear whether this is due to deconditio luisito, her concerns about falling or something neurologic al. Will re-evaluat e at next visit. 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 Not on replacemen t.Update TFTs since having sx. Chronic ob structive pulmonary disease 43070759 J44.9 Clinically . Recent PFTs (08/30) c/w emphysema or interstiti al lung disease.Di scussed this in relation to smoking and reasons to quit. Cigarette smoker 5261972 7 F17.210 Since no clear evidence of metastatic disease, discussed risks/harm s of smoking. Tobacco user 340218485 Z 72.0 counseling . Thyroid fu nction tests abnormal 890820514 R94.6 Not controlled . TSH= 2.3 (03/02) was 1.32 (01/31) ft4= 0.71 (03/02); was 0.7 (07/02) She is having multiple sx that might be c/w insufficie nt thyroid. Low T4 in setting of normal TSH is not c/w primary abnormalit y. Suggests possibilit y of secondary (pituitary ) issue.[facility] k labs. Dizziness 175725202 R42 Not controlled Orthostati cs show now rise in HR with standing (drops systolic > 20 but not hypotensiv e).On labetalol- 150 bid (was 300 bid). decreased a year ago (?06/01?)c heck cortisol/a cth. If OK, may want to review use of labetalol vs. change to alternativ e. Osteopenia with high fracture risk [id number] 44918 M85.80 BMD @ VMGL1-L4= -0.1 (05/01) .Femoral Neck= -1.9 (05/01)Left Total Hip= -1.5 (05/01)Risk s: thin, white, post-menop ausal and smoker. Has had wrist fx. Update with new baseline. [id number] Everardo Vazquez MD Endocrino [facility], [facility] [address] [place] [address] 06/23/2024 13:35:00 06/27/2024 06:21:22 Thyroid function tests abnormal 319462961 R94.6 Not controlled . TSH=4.12 (06/02) was [...] related to thyroid. 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 Not on replacemen t.Update TFTs since TSH is slowly rising (although still WNL). Dizziness 303737288 R42 Not controlled Orthostati cs showed rise in HR with standing (drops systolic > 20 but not hypotensiv e).On labetalol- 150 bid (was 300 bid). decreased a year ago (?06/01?) Checked cortisol/a cth and those were OKMay want to review use of labetalol vs. change to alternativ e. Osteopenia with high fracture risk 3316257440 26227 M85.80 BMD @ VMGL1-L4= -0.1 (05/01) .Femoral Neck= -1.9 (05/01)Left Total Hip= -1.5 (05/01)Risk s: thin, white, post-menop ausal and smoker. Has had wrist fx. Recommend: - Update with new baseline in future.- Talk to PCP about physical therapy focus on exercises that don't make dizziness worse. Chronic ob structive pulmonary disease 85833552 J44.9 Clinically . Recent PFTs (08/30) c/w emphysema or interstiti al lung disease.Di scussed this in relation to smoking and reasons to quit. Cigarette smoker 1742604 7 F17.210 Since no clear evidence of metastatic disease, discussed risks/harm s of smoking. Tobacco user 875018147 Z 72.0 counseling . Health Concerns Section Related Observation LastModified by Organization Detai ls LastModified Time None Recorded Concern Status LastModified by Organization Details LastModified Time None Recorded Advance Directives Directive None Recorded Payers Encounter Date Sequence Insurance Name Policy Number Policy Coppola Covered Member ID Coppola Member ID Guarantor Name 01/01/2023 2 [employer] (MEDICARE SUPPLEMENT) iLnda Gonzalezan [id number] Linda Dinan 01/01/2023 1 [facility] (MEDICARE REPLACEMENT/A DVANTAGE - PPO) [id number] Linda A Dinan [id number] Linda Dinan 05/18/2023 2 [employer] (MEDICARE SUPPLEMENT) Linda Dinan [id number] Linda Dinan 05/18/2023 1 [facility] (MEDICARE REPLACEMENT/A DVANTAGE - PPO) [id number] Linda A Dinan [id number] Linda Dinan 02/05/2024 1 [facility] (MEDICARE REPLACEMENT/A DVANTAGE - PPO) [id number] Linda A Dinan [id number] Linda Dinan 05/05/2024 1 [facility] (MEDICARE REPLACEMENT/A DVANTAGE - HMO) [id number] Linda A Dinan [id number] Linda Dinan 06/23/2024 1 [facility] (MEDICARE REPLACEMENT/A DVANTAGE - PPO) [id number] Linda A Dinan [id number] Linda Shanita Notes Date Note Type Note [...] Risk Assesment:Family History of Coronary Artery Disease(father [place] age 62);Does not participate in regular exercise [...] pressure; Has been difficult to control. 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) Back pain - ES tylenol only once a day right hip lot of pain - fermin with weight bearing/walking lipids controlled CATHERINE Garza [address] [place] [address], [phone], [facility] 01/02/2023 08:02:49 4 text/html Hasn't felt well [...] the last month.Drove herself to the hospital ([place]) and was admitted several days (need to request records) Also states she was diagnosed with metastatic cancer at one point in the last few years but then the oncologist left, someone else reviewed the records, stated there was no concerns and it wasn't actually cancer. Has COPD - sees pulm, uses a daily inhaler and albuterol prn JANEE SHIELDS MD [address] [place], [phone], [facility] 02/05/2024 16:07:07 4 text/html ThyroidReported bypatient.Previous Evaluation:TSH: [...] or evaluation until current issues came up.a/vmg-smoking [id number] bypatient.ImportanceOn a scale of 1-10 with 1 [...] better (but still high). 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 [...] suspicious. Had lobectomy (07/30) Bx done through [facility] Radiology: 2.2x1.7x2.9 (5 passes)- reported [...] compared to July 2020. Everardo Vazquez MD [address] [place] [address], [phone], [facility] 05/05/2024 12:57:58 4 text/html ThyroidReported bypatient.Previous Evaluation:Previous biopsy cytology ([place] IV: Suspicious for follicular neoplasm. Genomic sequencing [...] or evaluation until current issues came up.a/vmg-smoking [id number] bypatient.ImportanceOn a scale of 1-10 with 1 [...] better (but still high). F/U prn.PULM: [facility] ([place]) Follow-Up: thyroid noduleVMG Tobacco / Vaping Use [...] balance. 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 [...] suspicious. Had lobectomy (07/30) Bx done through [facility] Radiology: 2.2x1.7x2.9 (5 passes)- reported [...] compared to July 2020. Everardo Vazquez MD [address] [place] [address], [phone], [facility] 06/26/2024 18:32:05 OBGyn Episode No OBEpisode recorded.
== END 2024-11-10 14:01 | disposition home or self-care (01) ==
LOC: HO.HMCFM 12:50
PROVIDERS: PCP Nurse Practitioner Family; Visit Provider Nurse Practitioner Family
DX: Z01.818 Encounter for other preprocedural examination (principal); R42 Dizziness and giddiness; I10 Essential (primary) hypertension; M16.11 Unilateral primary osteoarthritis, right hip; M85.80 Other specified disorders of bone density and structure, unspecified site; F17.210 Nicotine dependence, cigarettes, uncomplicated

== ENCOUNTER → 2024-11-10 12:50 | Outpatient (BNVA) | payer MEDICARE, SELFPAY | PROVIDERS: PCP Nurse Practitioner Family; Visit Provider Nurse Practitioner Family | DX: Z01.818 Encounter for other preprocedural examination (principal); F17.210 Nicotine dependence, cigarettes, uncomplicated; J44.9 Chronic obstructive pulmonary disease, unspecified; R91.8 Other nonspecific abnormal finding of lung field; G47.33 Obstructive sleep apnea (adult) (pediatric); I10 Essential (primary) hypertension; R42 Dizziness and giddiness; M16.11 Unilateral primary osteoarthritis, right hip; M85.80 Other specified disorders of bone density and structure, unspecified site; Z87.442 Personal history of urinary calculi; Z85.850 Personal history of malignant neoplasm of thyroid | CPT/HCPCS: 96127; 99212 ==

== ENCOUNTER 2024-12-09 10:59 | Outpatient (AMB) | payer MEDICARE, SELFPAY ==
--- NOTE | 2024-12-09 07:55 | MHC.OFFVIS ---
Intake Visit Reasons: Current Smoker Allergies Penicillins [PENICILLINS] Allergy (Unknown, Verified 11/10/24 13:30) ITCHING HPI HPI Current Smoker: Details: Initial visit for this 69yo smoker with a 35PYH. Patient started smoking at age 15 for 54 years at 1/2-1ppd. Currently at <1/4ppd. . Denies marijuana use. Denies second hand smoke exposure. Denies exposure to chemicals or substances like asbestos. . Denies known family history of lung cancer. Personal history of thyroid cancer - partial thyroidectomy 2021. . Denies chest CT in last year. 04/24/23 LDCT at [facility] was Lung RADS 2 . Denies recent travel outside the [place]. Denies recent respiratory illness or recent hospitalization for respiratory issues. Denies testing positive for COVID. Admits receiving COVID Vaccine. . Denies fever, chills, new/worsening cough, hemoptysis, hoarseness or dysphagia. Denies significant chest pain, significant dyspnea or unintentional weight loss. Patient Lung Cancer Screening Questionnaire reviewed with patient by provider. . Shared Decision Making Completed. Patient meets criteria. Discussed in detail with patient, the risk vs benefit of LDCT screening. Patient consents to proceed with scan. Discussed smoking cessation. [facility] Medical History (Updated 12/09/24 @ 11:30 by Dennise Colindres PA-C) Nicotine dependence, cigarettes, uncomplicated History of mammogram Thyroid cancer ANA (obstructive sleep apnea) Pulmonary nodules COPD (chronic obstructive pulmonary disease) Surgical History (Updated 12/09/24 @ 11:23 by Dennise Colindres PA-C) History of tonsillectomy History of partial thyroidectomy History of colonoscopy Previous back surgery H/O laminectomy History of bowel resection Family History Sister Depression Brother Depression HTN (hypertension) Father HTN (hypertension) Heart disease Paternal Grandfather HTN (hypertension) Brother Heart disease Other FH: mental illness Social History (Updated 12/09/24 @ 11:30 by Dennise Colindres PA-C) Housing: House Alcohol intake: current Patient Tobacco Use Status: Current everyday Tobacco user Tobacco use type: Cigarette Cigarettes Per Day: 4 Years Smoked: (onset 15yo, 1/2-1ppd x 54yrs, now <1/4ppd - 35PYH) e-Cigarette/Vaping Use: Never Used service: No Current occupational status: retired Cognitive needs: No Hearing needs: Yes (need hearing checked) Vision needs: Yes (glasses) Assessment & Plan Assessment & Plan (1) Nicotine dependence, cigarettes, uncomplicated: Comment: (onset 15yo, 1/2-1ppd x 54yrs, now <1/4ppd - 35PYH) Code(s): F17.210 - Nicotine dependence, cigarettes, uncomplicated Category: Medical Plan: - SDM visit completed today in office. - Patient meets criteria for LDCT for lung cancer screening purposes and is asymptomatic. - Smoking cessation counseling offered. Patients can always call [phone]. - Will arrange for a LDCT scan of the chest for screening purposes at [facility]. - Risks, benefits, and alternatives were discussed in detail and the patient agrees to proceed. - Risks discussed include but are not limited to: radiation exposure, anxiety during testing and while awaiting results, false negatives, false positives and possibility of additional intervention such as further imaging or surgical procedures for benign disease. - Benefits are obviously detection of lung cancer at an early stage which can lead to improved outcomes. - Discussed the importance of screening program compliance with adherence to yearly LDCT scan as scheduled - or sooner interval scans for personalized screening regimen. - Discussed follow up plan. Our office will send a letter discussing results and if needed set up phone call and office visit based on CT findings. - Patient educated on results categorization and the management decisions for suspicious findings potentially found on the screening LDCT scan. Any patient with a Lung RADS score of 3 or 4 will be reviewed by a multidisciplinary team at [facility] to form a plan of action in regards to scan findings. - If further work up is warranted for a suspicious lung finding this will be followed by the Lung Cancer Screening program in conjunction with the Thoracic Surgery Department at [facility]. - A copy of the office note and LDCT will be sent to the patient's PCP - as well as documentation on any associated further plans of care. - Incidental findings on LDCT are the PCP's responsibility. These findings are indicated with an S finding on the LDCT Assessment. A note discussing the findings will be sent to the PCP who is then responsible for further management. - All questions answered.? Coding Level of Care Code Lung Cancer Screening G0296 Diagnoses Nicotine dependence, cigarettes, uncomplicated F17.210
--- OUTSIDE RECORDS SUMMARY | 2024-12-09 12:07 | XMS_ITS | Data Portability ---
Author Organization [facility], [facility] Address [address] [place] [address] Care Team Providers Care Insight Director Name Role Phone EVERARDO VAZQUEZ Dairy Consultant EMELIA ELIZABETH Primary Care Provider DEANNA JIMENEZ Orthopedist PARVEEN DELVALLE, DMITRIY Steam Turbine Assembler Assessment Encounter Date Assessment Date Assessment LastModified [...] recorded. Lab TSH, serum or plasma 2023 [facility], [address] [place] [address], [address], 12:31:07 T4, free, serum [address] [facility], [address] [place] [address], 25042, 11:52:26 T3, total, serum 2023 [facility], [address] [place] [address], 72781, 11:09:06 FSH (follicle-s timulating hormone), serum [address] [facility], [address] [place] [address], 49878, 11:09:07 igf-1 (insulin-li ke growth factor), serum [address] [facility], [address] [place] [address], 22192, 14:43:26 cortisol, am, serum [address] [facility], [address] [place] [address], 22761, 14:43:25 acth, plasma [address] [facility], [address] [place] [address], 29409, 14:43:27 prolactin, serum [address] [facility], [address] [place] [address], 24857, 4 14:43:27 lipid panel, serum [address] [facility], [address] [place] [address], 47084, 4 11:46:[address] [facility], [address] [place] [address], 18631, 4 15:23:54 TSH, serum or plasma [address] [facility], [address] [place] [address], 37657, 4 15:23:40 BMP, serum or plasma [address] [facility], [address] [place] [address], 16080, 4 11:46:37 urinalysis, dipstick [address] [facility], [address] [place] [address], [address], 3 13:57:42 Referral None recorded. Procedures None recorded. Surgeries None recorded. Imaging MAMMO, screening, tomosynthes is, bilateral [address] [facility]), [address], [place], [address], 3 16:06:19 LDCT, chest, for lung cancer screening - Please enroll this patient in the LDCT Lung Cancer Screening Program (for ordering, follow up and shared decision making)h as hx known nodules. Dr. Leavitt 09/04/212022 023 [facility], [address] [place], [address], 3 17:26:04 Medication Orders albuterol sulfate HFA 90 mcg/actuati on aerosol inhaler 2023 024 MICHELE [facility], [address] [place] [address], [address], [place], [place], [id number], 4 14:18:20 clotrimazol e 10 mg darian 2022 023 [email or web address] [facility], [address] [place], [address], [place], [place], [id number], 14:14:41 Patient TargetsNo targets recorded. Patient Instructions Encounter Date Encounter Id Patient Instructions Last Modified By Organization Details Last Modified Time 01/01/2023 [id number] high cholesterol lifestyle changes Not available 01/01/2023 14:40:56 advance directives: care instructions Not available 01/01/2023 14:40:57 preventing falls: care instructions Not available 01/01/2023 14:40:57 hearing loss: care instructions Not available 01/01/2023 14:40:56 well visit, over 65: care instructions Not available 01/01/2023 14:40:57 05/05/2024 [id number] - Get labs done before 8AM. [email or web address] [...] My Health To Do List {{go to [employer] [email or web address] or call * sign up for maru text 2 quit or other stop smoking maru contact Atmospheiree.gov}} {{go to MedClaims Liaison or call s ign up for maru text 2 quit or other stop smoking maru contact smokeReologica Instruments.gov*}} {{go to [employer] Liaison or call s ign up for maru text 2 quit or other stop smoking maru contact CaratLane.gov}} Counseling done {{Patient not ready to quit [...] {{adding exercise regular meals stress management impro [employer]ower [employer] sleep therapist identifying sponsor}} {{adding exercise regular meals stress management impro ozuke sleep therapist identifying sponsor}} My Cleversafe To Do List {{go to [employer]s Liaison or call s ign up for maru text 2 quit or other stop smoking maru contact smokeReologica Instruments.gov}} {{go to [employer] Liaison or call s ign up for maru text 2 quit or other stop smoking maru contact CaratLane.gov}} {{go to [employer] Liaison or call s ign up for maru text 2 quit or other stop smoking maru contact smokeBoxbeeee.gov}} Not available 05/03/2024 09:03:04 06/23/2024 [id number] [email or web address] Not available 06/26/2024 18:30:45 6 months/ [...] My Health To Do List {{go to [employer] Liaison or call * sign up for maru text 2 quit or other stop smoking maru contact smokeReologica Instruments.gov}} {{go to quitWeather Analytics or call s ign up for maru text 2 quit or other stop smoking maru contact CaratLane.gov*}} {{go to [employer] or call s ign up for maru text 2 quit or other stop smoking maru contact CaratLane.gov}} Counseling done {{Patient not ready to quit [...] My Health To Do List {{go to Med[employer]s Liaison or call s ign up for maru text 2 quit or other stop smoking maru contact smokefruberall.gov}} {{go to [employer] Liaison or call s ign up for maru text 2 quit or other stop smoking maru contact smokeReologica Instruments.gov}} {{go to [employer] Liaison or call s ign up for maru text 2 quit or other stop smoking maru contact smokeReologica Instruments.gov}} [email or web address] Not available 06/23/2024 15:00:31 Reason for [...] furth er confi rmati on Not Available [address], [address], 12/25/2022 16:23:00 12/26/19 23 12/25/2022 HGB A1C estimated average glucose 102.5 mg/dL Not Available [address], [address], 12/25/2022 16:23:00 12/26/19 23 12/25/2022 VITAM IN [...] er than 30 ng/mL . Not Available [address], [address], 12/25/2022 16:26:10 12/26/1912/25/2022 TSH TSH 1.79 uIU/m L 0.50-6 .00 The Ameri can Colle ge of Endoc rinol ogy and Ameri can Thyro id Assoc iatio n recom mend goal TSH value s betwe en 0.4-4 .0 mIU/m L. Not Available [address], [address], 12/25/2022 16:26:15 12/26/19 23 12/25/2022 BASIC METAB OLIC PANEL glucose 120 mg/dL 70-100 high Not Available [address], [address], 12/25/2022 16:33:09 12/26/19 23 12/25/2022 BASIC METAB OLIC PANEL BUN 7 mg/dL 7-18 Not Available [address], 10047, 12/25/2022 16:33:09 12/26/19 23 12/25/2022 BASIC METAB OLIC PANEL creatinine 0.8 mg/dL 0.8-1. 3 Not Available [address], [address], 12/25/2022 16:33:09 12/26/19 23 12/25/2022 BASIC METAB OLIC PANEL B/C 8.8 ratio Not Available [address], [address], 12/25/2022 16:33:09 12/26/19 23 12/25/2022 BASIC METAB [...] be used in pregn junaid. Not Available [address], [address], 12/25/2022 16:33:09 12/26/19 23 12/25/2022 BASIC METAB OLIC PANEL sodium 141 mmol/ L 136-14 5 Not Available [address], [address], 12/25/2022 16:33:09 12/26/19 23 12/25/2022 BASIC METAB OLIC PANEL potassium 3.6 mmol/ L 3.5-5. 1 Not Available [address], 72918, 12/25/2022 16:33:09 12/26/19 23 12/25/2022 BASIC METAB OLIC PANEL chloride 98 mmol/ L 96-107 Not Available [address], 57[address], 12/25/2022 16:33:09 12/26/19 23 12/25/2022 BASIC METAB OLIC PANEL anion gap 11.7 5.0-15 .0 Not Available [address], 53505, 12/25/2022 16:33:09 12/26/19 23 12/25/2022 BASIC METAB OLIC PANEL CO2 31 mmol/ L 21-32 Not Available [address], 24669, 12/25/2022 16:33:09 12/26/19 23 12/25/2022 BASIC METAB OLIC PANEL calcium 9.4 mg/dL 8.5-10 .3 Not Available [address], [address]12, 12/25/2022 16:33:09 12/26/19 23 12/25/2022 LIPID PANEL cholesterol 178 mg/dL <200 mg/dl Rola able 200-2 39 mg/dl Borde rline High >240 mg/dl High Not Available [address], [address], 12/25/2022 16:33:11 12/26/19 23 12/25/2022 LIPID PANEL triglyceride s 76 mg/dL <150 mg/dL Mercedes l 150-1 99 mg/dL Borde rline High 200-4 99 mg/dL High >500 mg/dL Very High Not Available [address] [place], [address], 12/25/2022 16:33:11 12/26/19 23 12/25/2022 LIPID PANEL direct HDL 80 mg/dL <40 mg/dl - Major Risk for CHD >60 mg/dl - Negat wesley Risk for CHD Not Available [address], [address], 12/25/2022 16:33:11 12/26/19 23 12/25/2022 DIREC T [...] r is not braxton tavera. Not Available [address], [address], 12/25/2022 16:33:14 01/02/2001/01/2023 POC UA glu UA NEGATI VE Not Available [facility] [address] [place] [address], [address], 01/01/2023 13:57:42 01/02/20 23 01/01/2023 POC UA clarity UA CLEAR Not Available [facility] [address] [place] [address], 82748, 01/01/2023 13:57:42 01/02/20 23 01/01/2023 POC UA uro UA 0.2000 Not Available [facility] [address] [place] [address], 93237, 01/01/2023 13:57:42 01/02/20 23 01/01/2023 POC UA ket UA NEGATI VE Not Available [facility] [address] [place] [address], 74047, 01/01/2023 13:57:42 01/02/20 23 01/01/2023 POC UA pro UA NEGATI VE Not Available [facility] [address] [place] [address], 24381, 01/01/2023 13:57:42 01/02/20 23 01/01/2023 POC UA nit UA NEGATI VE Not Available [facility] [address] [place] [address], 82953, 01/01/2023 13:57:42 01/02/20 23 01/01/2023 POC UA rebekah UA NEGATI VE Not Available [facility] [address] [place] [address], 63591, 01/01/2023 13:57:42 01/02/20 23 01/01/2023 POC UA pH UA 7.0000 Not Available [facility] [address] [place] [address], 27657, 01/01/2023 13:57:42 01/02/20 23 01/01/2023 POC UA SG UA 1.0200 Not Available [facility] [address] [place] [address], 19943, 01/01/2023 13:57:42 01/02/20 23 01/01/2023 POC UA color UA YELLOW Not Available [facility] [address] [place] [address], 81136, 01/01/2023 13:57:42 01/02/20 23 01/01/2023 POC UA blo UA NEGATI VE Not Available [facility] [address] [place] [address], 14360, 01/01/2023 13:57:42 01/02/20 23 01/01/2023 POC UA bren UA NEGATI VE Not Available [facility] [address] [place] [address], 18999, 01/01/2023 13:57:42 02/05/20 24 02/05/2024 HGB A1C [...] furth er confi rmati on Not Available [address], [address], 02/05/2024 15:16:31 02/05/20 24 02/05/2024 HGB A1C estimated average glucose 105.4 mg/dL Not Available [address], 75681, 02/05/2024 15:16:31 02/05/20 24 02/05/2024 CBC WBC 7.83 K/? ? ?L 3.98-1 0.04 Not Available [address], [address]15, 02/05/2024 15:23:54 02/05/20 24 02/05/2024 CBC RBC 4.36 M/? ? ?L 3.93-5 .22 Not Available [address], [address]97, 02/05/2024 15:23:54 02/05/20 24 02/05/2024 CBC HGB 14.3 g/dL 11.2-1 5.7 Not Available [address], 79075, 02/05/2024 15:23:54 02/05/20 24 02/05/2024 CBC HCT 41.8 % 34.1-4 4.9 Not Available [address], 02778, 02/05/2024 15:23:54 02/05/20 24 02/05/2024 CBC MCV 95.9 fL 79.4-9 4.8 high Not Available [address], 18704, 02/05/2024 15:23:54 02/05/20 24 02/05/2024 CBC MCH 32.8 pg 25.6-3 2.2 high Not Available [address], 37648, 02/05/2024 15:23:54 02/05/20 24 02/05/2024 CBC MCHC 34.2 g/dL 32.2-3 5.5 Not Available [address], 16623, 02/05/2024 15:23:54 02/05/20 24 02/05/2024 CBC plt 225 K/? ? ?L 182-36 9 Not Available [address], 46495, 02/05/2024 15:23:54 02/05/20 24 02/05/2024 CBC MPV 10.8 fL 9.4-12 .3 Not Available [address], 61454, 02/05/2024 15:23:54 02/05/20 24 02/05/2024 CBC neut% 71.8 % 34.0-7 1.1 high Not Available [address], 01944, 02/05/2024 15:23:54 02/05/20 24 02/05/2024 CBC neut# 5.62 1.56-6 .13 Not Available [address], 23709, 02/05/2024 15:23:54 02/05/20 24 02/05/2024 CBC lymph % 20.9 % 19.3-5 1.7 Not Available [address], 58082, 02/05/2024 15:23:54 02/05/20 24 02/05/2024 CBC lymph # 1.64 K/? ? ?L 1.18-3 .74 Not Available [address], 61493, 02/05/2024 15:23:54 02/05/20 24 02/05/2024 CBC mono% 5.6 % 4.7-12 .5 Not Available [address], 43721, 02/05/2024 15:23:54 02/05/20 24 02/05/2024 CBC mono# 0.44 0.24-0 .56 Not Available [address], 64786, 02/05/2024 15:23:54 02/05/20 24 02/05/2024 CBC eo% 0.8 % 0.7-5. 8 Not Available [address], 69266, 02/05/2024 15:23:54 02/05/20 24 02/05/2024 CBC eo# 0.06 0.04-0 .36 Not Available [address], 37411, 02/05/2024 15:23:54 02/05/20 24 02/05/2024 CBC baso% 0.6 % 0.1-1. 2 Not Available [address], 49060, 02/05/2024 15:23:54 02/05/20 24 02/05/2024 CBC baso# 0.05 0.00-0 .08 Not Available [address], 10056, 02/05/2024 15:23:54 02/05/20 24 02/05/2024 CBC RDW-CV 12.3 % 11.7-1 4.4 Not Available [address], [address]77, 02/05/2024 15:23:54 02/05/20 24 02/05/2024 CBC Ig% 0.300 % 0.000- 1.500 Ig % >0.5 Indic ates possi ble Left Shift Not Available [address], 015[address], 02/05/2024 15:23:54 02/05/20 24 02/05/2024 CBC Ig# 0.020 0.000- 0.093 Not Available [address], [address], 02/05/2024 15:23:54 02/05/20 24 02/05/2024 CBC NRBC% 0.0 % 0.0-0. 2 Not Available [address], 9[address], 02/05/2024 15:23:54 02/05/20 24 02/05/2024 CBC NRBC# 0.000 0.000- 0.012 Not Available [address], 82620, 02/05/2024 15:23:54 02/05/20 24 02/08/2024 BASIC METAB OLIC PANEL glucose 113 mg/dL 70-100 high Not Available [address], 89[address], 02/08/2024 11:46:36 02/05/20 24 02/08/2024 BASIC METAB OLIC PANEL BUN 16 mg/dL 7-18 Not Available [address], 947[address], 02/08/2024 11:46:36 02/05/20 24 02/08/2024 BASIC METAB OLIC PANEL creatinine 0.7 mg/dL 0.8-1. 3 low Not Available [address], 7[address], 02/08/2024 11:46:36 02/05/20 24 02/08/2024 BASIC METAB OLIC PANEL B/C 22.9 ratio Not Available [address], 81929, 02/08/2024 11:46:36 02/05/20 24 02/08/2024 BASIC METAB [...] be used in pregn junaid. Not Available [address], [address], 02/08/2024 11:46:36 02/05/20 24 02/08/2024 BASIC METAB OLIC PANEL sodium 142 mmol/ L 136-14 5 Not Available [address], [address], 02/08/2024 11:46:36 02/05/20 24 02/08/2024 BASIC METAB OLIC PANEL potassium 4.5 mmol/ L 3.5-5. 1 Not Available [address], 73764, 02/08/2024 11:46:36 02/05/20 24 02/08/2024 BASIC METAB OLIC PANEL chloride 102 mmol/ L 96-107 Not Available [address], [address], 02/08/2024 11:46:36 02/05/20 24 02/08/2024 BASIC METAB OLIC PANEL anion gap 11.9 5.0-15 .0 Not Available [address], [address], 02/08/2024 11:46:36 02/05/20 24 02/08/2024 BASIC METAB OLIC PANEL CO2 28 mmol/ L 21-32 Not Available [address], [address], 02/08/2024 11:46:36 02/05/20 24 02/08/2024 BASIC METAB OLIC PANEL calcium 9.5 mg/dL 8.5-10 .3 Not Available [address], [address], 02/08/2024 11:46:36 02/05/20 24 02/08/2024 LIPID PANEL cholesterol 204 mg/dL <200 mg/dl Rola able 200-2 39 mg/dl Borde rline High >240 mg/dl High Not Available [address], [address], 02/08/2024 11:46:37 02/05/20 24 02/08/2024 LIPID PANEL triglyceride s 63 mg/dL <150 mg/dL Mercedes l 150-1 99 mg/dL Borde rline High 200-4 99 mg/dL High >500 mg/dL Very High Not Available [address], [address], 02/08/2024 11:46:37 02/05/20 24 02/08/2024 LIPID PANEL direct HDL 72 mg/dL <40 mg/dl - Major Risk for CHD >60 mg/dl - Negat wesley Risk for CHD Not Available [address] [place], [address], 02/08/2024 11:46:37 02/05/20 24 02/08/2024 DIREC T [...] r is not braxton liang. Not Available [address], [address], 02/08/2024 11:46:38 02/05/20 24 02/08/2024 TSH TSH 1.32 uIU/m L 0.50-6 .00 The Steffi can Colle ge of Endoc rinol ogy and Steffi can Thyro id Assoc iatio n recom mend goal TSH value s betwe en 0.4-4 .0 mIU/m L. Not Available [address], [address], 02/08/2024 15:23:40 02/29/20 24 03/01/2024 FREE T4 free T4 0.71 NG/dL 0.75-1 .54 low Not Available [address], [address], 03/01/2024 10:48:50 02/29/20 24 03/01/2024 VITAM IN [...] er than 30 ng/mL . Not Available [address], [address]161, 03/01/2024 10:55:50 02/29/20 24 03/01/2024 TSH TSH 2.30 uIU/m L 0.50-6 .00 The Ameri can Colle ge of Endoc rinol ogy and Ameri can Thyro id Assoc iatio n recom mend goal TSH value s betwe en 0.4-4 .0 mIU/m L. Not Available [address], [address], 03/01/2024 11:03:38 05/31/20 24 05/31/2024 FREE T4 free T4 0.80 NG/dL 0.75-1 .54 Not Available [address], 91062, 05/31/2024 11:52:26 05/31/20 24 05/31/2024 TSH TSH 4.12 uIU/m L 0.50-6 .00 The Ameri can Colle ge of Endoc rinol ogy and Ameri can Thyro id Assoc iatio n recom mend goal TSH value s betwe en 0.4-4 .0 mIU/m L. Not Available [address], [address], 05/31/2024 12:31:07 05/31/20 24 06/01/2024 TOTAL T3 total T3 1.28 NG/mL 0.70-1 .70 Not Available [address], [address], 06/01/2024 11:09:06 05/31/20 24 06/01/2024 FSH FSH 70.6 mIU/m L Male: 1.0 - 42.5 mIU/m L Femal e Ovula ting: Folli cular Phase : 2.7 - 15.4 mIU/m L Peak: 3.9 - 22.0 mIU/m L Lutea l Phase : 1.0 - 14.4 mIU/m L Postm enopa usal: 25.0 - 160.0 mIU/m L Not Available [address], [address], 06/01/2024 11:09:07 05/31/20 24 06/01/2024 LIPID PANEL cholesterol 219 mg/dL <200 mg/dl Rola able 200-2 39 mg/dl Borde rline High >240 mg/dl High Not Available [address], [address], 06/01/2024 14:38:40 05/31/20 24 06/01/2024 LIPID PANEL triglyceride s 150 mg/dL <150 mg/dL Mercedes l 150-1 99 mg/dL Borde rline High 200-4 99 mg/dL High >500 mg/dL Very High Not Available [address], [address], 06/01/2024 14:38:40 05/31/2006/01/2024 LIPID PANEL direct HDL 70 mg/dL <40 mg/dl - Major Risk for CHD >60 mg/dl - Negat wesley Risk for CHD Not Available [address], [address], 06/01/2024 14:38:40 05/31/2006/01/2024 LDL - CALCU LATED [...] r is not yamilkeyur tavera. Not Available [address], [address], 06/01/2024 14:38:42 05/31/20 24 06/01/2024 BASIC METAB OLIC PANEL glucose 104 mg/dL 70-100 high Not Available [address], [address], 06/01/2024 15:00:52 05/31/2006/01/2024 BASIC METAB OLIC PANEL BUN 14 mg/dL 7-18 Not Available [address], [address], 06/01/2024 15:00:52 05/31/20 24 06/01/2024 BASIC METAB OLIC PANEL creatinine 0.8 mg/dL 0.8-1. 3 Not Available [address], [address]64, 06/01/2024 15:00:52 05/31/20 24 06/01/2024 BASIC METAB OLIC PANEL B/C 17.5 ratio Not Available [address], [address], 06/01/2024 15:00:52 05/31/20 24 06/01/2024 BASIC METAB [...] be used in pregn junaid. Not Available [address], [address], 06/01/2024 15:00:52 05/31/2006/01/2024 BASIC METAB OLIC PANEL sodium 144 mmol/ L 136-14 5 Not Available [address], [address], 06/01/2024 15:00:52 05/31/2006/01/2024 BASIC METAB OLIC PANEL potassium 4.1 mmol/ L 3.5-5. 1 Not Available [address], [address], 06/01/2024 15:00:52 05/31/2006/01/2024 BASIC METAB OLIC PANEL chloride 104 mmol/ L 96-107 Not Available [address], [address], 06/01/2024 15:00:52 05/31/2006/01/2024 BASIC METAB OLIC PANEL anion gap 9.8 5.0-15 .0 Not Available [address], [address], 06/01/2024 15:00:52 05/31/2006/01/2024 BASIC METAB OLIC PANEL CO2 30 mmol/ L 21-32 Not Available [address], [address]60[address], 06/01/2024 15:00:52 05/31/2006/01/2024 BASIC METAB OLIC PANEL calcium 9.7 mg/dL 8.5-10 .3 Not Available [address], [address], 06/01/2024 15:00:52 05/31/2006/07/2024 IGF 1, LC/MS igf 1, lc/MS 129 NG/mL 34-245 Not Available [facility] [address], [address], 06/07/2024 14:43:26 05/31/20 24 06/07/2024 IGF 1, LC/MS Z score (female) 0.4 SD -2.0 - +2.0 This test was devel humza and its arnold tical perfo rmanc e kamari cteri stics have been deter mined by [facility]. It has not been clear ed or appro ariel by FDA. This assay has been valid ated pursu ant to the CLIA regul ation s and is used for clini laney purpo ses. Not Available [facility] [address], [address], 06/07/2024 14:43:26 05/31/2006/07/2024 ACTH, PLASM A acth, plasma 18 pg/mL 6-50 Refer ence range appli es only to speci mens colle cted betwe en 7am-1 0am. Not Available [facility] [address], [address], 06/07/2024 14:43:26 05/31/20 24 06/07/2024 PROLA CTIN prolactin 9.4 NG/mL normal Refer ence Range Femal es Non-p regna nt 3.0-3 0.0 Pregn ant 10.0- 209.0 Postm enopa usal 2.0-2 0.0 Not Available [facility] [address], [address], 06/07/2024 14:43:27 04/24/20 23 04/24/2023 LDCT, chest , for lung cance r scree luisito No observ ation record ed. [facility] [address] [facility] [address] [facility], [place], [address], 04/28/2023 17:05:43 04/27/20 23 04/27/2023 MAMMO , [...] PM Reji francis Physic frank: Jai mckee [facility] [address], [place], [address], 04/27/2023 16:30:52 Result Notes None recorded. Problems Name Problem SNOMED Code Status Onset Date Resolution Date Notes Provider Name and Address Organization Details Recorded Time Pain of joint 09240380 Completed 01/01/2023 CATHERINE Garza [address] [place] [address], [phone] , [facility] 3 14:47:10 Backache 338781159 Completed 11/15/2014 Yeny Elizabeth NP [address] [place] [address], [phone] , [facility] 5 20:40:22 Sinusiti s [id number] Completed 11/15/2014 Yeny Elizabeth NP [address] [place] [address], [phone] , [facility] 5 20:43:58 Sleep apnea 37057789 Active Not Available [facility] 4 00:24:30 Backache 025751055 Active Not Available [facility] 4 00:24:29 Impaired fasting glycemia 161272066 Active 2017 Not Available [facility] 4 00:24:29 Vitamin D deficien cy 87662865 Active 2020 Not Available [facility] 4 00:24:29 Multiple nodules of lung 677770224 Active 2020 non-canc erous. followed by Dr. Julio lawrence. 09/04/21 note - surveill ance is complete . Not Available [facility] 4 00:24:30 Chronic obstruct wesley pulmonar y disease 41371317 Active 2020 PFT 1 Not Available [facility] 4 00:24:29 Osteoart hritis of right hip joint 60089012959 9107 Active 2021 follows w/ [facility]. Not Available [facility] 4 00:24:29 History of subtotal thyroide ctomy 499148389 Active 2021 Not Available [facility] 4 00:24:30 Decrease d body mass index 0875052 Completed 202101/01/2023 CATHERINE Garza [address] [place] [address], [phone] , [facility] 3 13:54:15 Bone density finding 785972886 Active 2022 Not Available [facility] 4 00:24:29 Major depressi on, melancho lic type 545589919 Active 2022 Not Available [facility] 4 00:24:29 History of partial resectio n of colon 790415857 Active 2022 Not Available [facility] 4 00:24:30 Mixed hyperlip idemia 092664701 Active Not Available [facility] 4 00:24:29 Head and neck swelling 041884376 Completed 200206/29/2013 Not Available [facility] 3 02:04:11 Single major depressi ve episode, mild Completed 200611/15/2014 Yeny Elizabeth NP [address] [place] [address], [address] , [facility] 5 20:42:37 Benign neoplasm of skin of trunk, excludin g scrotum Completed 200506/29/2013 Not Available [facility] 3 02:04:05 Essentia l hyperten camryn 40100106 Active Not Available [facility] 4 00:24:30 Chronic nonalcoh olic liver disease 07715110 Active Not Available [facility] 4 00:24:30 Gastroes ophageal reflux disease 442231140 Active Not Available [facility] 4 00:24:29 Non-toxi c uninodul ar goiter [id number] Completed 11/15/2014 Yeny Elizabeth NP [address] [place] [address], [id number] , [facility] 5 20:42:37 Anxiety state [id number] Completed 11/15/2014 Yeny Elizabeth NP [address] [place] [address], [id number] , [facility] 5 20:42:37 Acute pharyngi tis [id number] Completed 06/29/2013 Not Available [facility] 3 02:01:17 Allergic rhinitis [id number] Active Not Available [facility] 4 00:24:30 Epidermo id cyst of skin [id number] Completed 200506/29/2013 Not Available [facility] 3 02:02:53 Elevated blood-pr essure reading without diagnosi s of hyperten camryn [id number] Completed 200211/15/2014 Yeny Elizabeth NP [address] [place] [address], [id number] , [facility] 5 20:40:22 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 Completed 11/15/2014 Yeny Elizabeth NP [address] [place] [address], [id number] , [facility] 5 20:40:22 Organic sleep disorder 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 Completed 11/15/2014 Yeny Elizabeth NP [address] [place] [address], [address] , [facility] 5 20:40:22 Acute bronchit is 62185576 Completed 06/29/2013 Not Available [facility] 3 02:01:36 Malaise and fatigue 663500388 Completed 06/29/2013 Not Available [facility] 3 02:00:18 Blood in urine 82122043 Completed 200511/15/2014 Yeny Elizabeth NP [address] [place] [address], [address] , [facility] 5 20:43:58 Carpal tunnel syndrome 81493841 Active 2003 surgery 2010 Not Available [facility] 4 00:24:30 Kidney stone 28834154 Completed 200701/01/2023 CATHERINE Garza [address] [place], [address] , [facility] 3 14:47:07 Ureteric stone 21689060 Completed 200511/15/2014 Yeny Elizabeth NP [address] [place] [address], [address] , [facility] 5 20:43:58 Right upper quadrant pain 239306925 Completed 06/29/2013 Not Available [facility] 3 02:03:18 Sleep disorder 01258838 Completed 11/15/2014 Yeny Elizabeth NP [address] [place] [address], [address] , [facility] 5 20:40:22 Orthosta tic hypotens ion 80951163 Completed 11/15/2014 Yeny Elizabeth NP [address] [place] [address], [address] , [facility] 5 20:40:22 Lymphade nopathy 37411423 Completed 200206/29/2013 Not Available [facility] 3 02:03:13 Tobacco user 290940215 Completed 200211/15/2014 Yeny Elizabeth NP [address] [place] [address], [address] , [facility] 5 20:42:37 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 200511/15/2014 Yeny Elizabeth NP [address] [place] [address], [address] , [facility] 5 20:43:58 Sprain of ankle 37852906 Completed 200406/29/2013 Not Available [facility] 3 02:02:51 Syncope and collapse 047338646 Completed 11/15/2014 Yeny Elizabeth NP [address] [place] [address], [address] , [facility] 5 20:40:22 Joint pain in ankle and foot Completed 200406/29/2013 Not Available [facility] 3 02:01:26 Acute sinusiti s 88869179 Completed 06/29/2013 Not Available [facility] 3 02:02:20 Finding by method 295311823 Completed 200206/29/2013 Not Available [facility] 3 02:01:56 Breast lump 61789751 Completed 200211/15/2014 Yeny Elizabeth NP [address] [place] [address], [address] , [facility] 5 20:40:22 Common cold 78081784 Completed 06/29/2013 Not Available [facility] 3 02:00:28 Mammogra phy abnormal 857077563 Completed 200611/15/2014 Yeny Elizabeth NP [address] [place] [address], [address] , [facility] 5 20:45:31 Idiopath ic peripher al neuropat hy 81606743 Completed 200711/15/2014 Yeny Elizabeth NP [address] [place] [address], [address] , [facility] 5 20:42:37 On examinat ion - a rash Completed 06/29/2013 Not Available [facility] 3 02:00:49 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 Not Available [facility] 4 00:24:30 Dysphagi a 25084363 Completed 11/15/2014 Yeny Elizabeth NP [address] [place] [address], [address] , [facility] 5 20:40:22 Abnormal cervical Papanico laou smear 091214460 Completed 200711/15/2014 Yeny Elizabeth NP [address] [place] [address], [address] , [facility] 5 20:55:49 Non-orga evelyn sleep disorder 685859435 Completed 200511/15/2014 Yeny Elizabeth NP [address] [place] [address], [address] , [facility] 5 20:40:22 Open wound of scalp 851699560 Completed 06/29/2013 Not Available [facility] 3 02:04:18 Low back pain 987907325 Completed 01/01/2023 CATHERINE Garza [address] [place] [address], [address] , [facility] 3 14:47:05 Hypothyr oidism 64742335 Completed 200211/15/2014 Yeny Elizbaeth NP [address] [place] [address], [address] , [facility] 5 20:42:37 Mononeur itis 13791720 Completed 200701/01/2023 CATHERINE Garza [address] [place] [address], [address] , [facility] 3 14:47:13 Abnormal findings on diagnost ic imaging of skull and head 058831490 Active Not Available [facility] 4 00:24:29 Pain in limb 75649520 Completed 200406/29/2013 Not Available [facility] 3 02:00:56 Heartbur n 95608642 Completed 06/29/2013 Not Available [facility] 3 02:03:55 Difficul ty speaking Completed 11/15/2014 Yeny Elizabeth NP [address] [place] [address], [address] , [facility] 5 20:40:22 Notes:Some problems listed i n Documents: #[id number], #[id number], #[id number], #[id number], #[id number], #[id number] could not be added to this patient's [...] 023 Smoking cessation counseling completed CATHERINE Garza [address] [place] [address], [address], [facility] 01/01/2023 14:12:24 023 Medicare Wellness Visit completed Gisselle Cid MA [facility] 01/01/2023 13:36:59 022 Smoking cessation counseling completed Gisselle Cid, [facility] 05/16/2022 14:20:29 022 Smoking cessation counseling completed Everardo Vazquez MD [address] [place] [address], [address], [facility] 04/03/2022 10:41:44 022 Medicare Wellness Visit completed Xiomy Gooden [facility] 12/23/2021 13:50:31 022 Alcohol use screening completed Xiomy Gooden [facility] 12/23/2021 13:50:31 022 Cardiovascular disease risk reduction counseling completed Xiomy Gooden [facility] 12/23/2021 13:50:31 021 Smoking cessation counseling completed Loreta Gloria RN [facility] 07/18/2021 11:27:55 021 Smoking cessation counseling completed Hailey Fleming [facility] 06/05/2021 10:57:46 021 partial lobectomy of thyroid completed Yeny Elizabeth NP [address] [place], [address], [facility] 06/02/2021 12:35:36 021 Biopsy of thyroid completed Dixie Underwood LPN [facility] 01/03/2021 14:35:31 021 Medicare Wellness Visit completed Terrell Thompson [facility] 12/06/2020 08:49:12 021 COPD Screening completed Terrell Thompson [facility] 12/06/2020 11:33:22 021 prevention-cardio vascular risk reduction counseling completed Terrell Thompson [facility] 12/06/2020 08:49:12 021 prevention-annual alcohol misuse screening completed Terrell Thompson [facility] 12/06/2020 08:49:12 021 biopsy of thyroid completed Dixie Underwood LPN [facility] 12/20/2020 15:57:05 021 Medicare Wellness Visit completed Terrell Thompson [facility] 08/21/2020 08:16:38 021 prevention-cardio vascular risk reduction counseling completed Terrell Thompson [facility] 08/21/2020 08:16:38 021 prevention-annual alcohol misuse screening completed Terrell Thompson [facility] 08/21/2020 08:16:38 019 Nebulizer Tx completed Yazan Lozoyatega [facility] 09/14/2018 18:02:56 014 Other (specify) completed Yeny Elizabeth NP [address] [place], [address], [facility] 11/15/2014 20:37:49 012 Suture/staple Removal completed Yeny Elizabeth NP [address] [place], [address], [facility] 09/19/2011 17:19:53 011 Carpal Tunnel Surgery completed Yeny Elizabeth NP [address] [place], [address], [facility] 09/12/2011 12:33:44 004 completed Not Available [facility] 06:05:52 Back Surgery completed Yeny alexandre NP [address] [place], [address], [facility] 04/10/2015 11:56:53 repair of tendon completed Dixie Underwood LPN [facility] 12/20/2020 15:57:18 Imaging Results Imaging Date Name Status LastModified by Organiz [facility] Details LastModified Time 04/24/2023 LDCT, chest, for lung cancer screening completed [facility] [address] [place], [address], 04/28/2023 17:05:43 04/27/2023 MAMMO, screening, tomosynthesis, bilateral completed rafi [facility] (Imaging) [address], [place], [address], 04/27/2023 16:30:52 Procedure Notes None recorded. Medical Equipment None Reported. Allergies Allergen ID Allergen Name Allergen Category Reaction Reaction Severity Criticality Documentation Date Start Date Code Code System Note Provider Name and Address Organization Details Recorded Time 650704 metoprolo l Not available Not available Not available Not available 01/24/2013 6918 RxNorm marito cardi a. Yeny Elizabeth NP [address] [place], [address], [facility] 3 11:47:43 187613 spironola ctone medicatio n dizziness Not available Not available 01/25/2016 9997 RxNorm [facility] [address] [facility] [place] [address], [facility] 6 16:15:07 43514 penicilli n G Not available itching Not available Not available 07/30/2009 7980 RxNorm insid e of skin Not Available [facility] 1 06:05:20 738386 bupropion Not available other Not available Not available 01/26/2017 66754 RxNorm nonst op cryin g, Yeny Elizabeth NP [address] [facility] [place] [address], [facility] 7 16:46:02 33846 hydrochlo rothiazid e medicatio n other severe Not available 10/25/2011 5487 RxNorm ortho stasi s and synco pe Yeny Elizabeth NP [address] [place], [address], [facility] 2 18:26:45 82158 amlodipin e medicatio n other severe Not available 10/25/2011 65075 RxNorm ortho stasi s and synco pe Yeny Elizabeth NP [address] [facility] [place], [address], [facility] 2 18:26:45 71731 lisinopri l medicatio n cough Not available Not available 10/28/2011 23819 RxNorm Yeny Elizabeth NP [address] [facility] [place], [address], [facility] 2 11:17:27 90089 Diovan medicatio n other mild Not available 11/10/2011 64850 2 RxNorm diarr hea and insom caridad Yeny Elizabeth, ANITRA [address] [place] [address], [place], [address], [facility] 2 11:50:20 Medications Name Sig Start Date [...] 2024 active Not Available Not Available Not Avga lable Nifedical XL 60 mg tablet,ex tended [...] Not Available Not Available Not Catherine labludmila GaviLyte- G 236 gram-22.7 4 gram-6.74 gram-5.86 gram oral solution 10/05 completed Not Available Not Available Not Available Breo Ellipta 100 mcg-25 mcg/dose powder for inhalatio n INHALE 1 PUFF INTO THE LUNGS DAILY active Not Available Not Available No t Available [facility] 8820-7654 (PF) 45 mcg (15 mcg x 3)/0.5 mL intramusc ular syringe inject 0.5 millilit er intramus cularly active Not Available Not Available No t Available fluticaso ne 113 mcg-salme terol 14 mcg/actua tion breath activated powdr INHALE 1 PUFF BY MOUTH EVERY 12 HOURS active Not Available Not Available No t Available [facility]2016-2018 (PF) 45 mcg(15 mcg x 3)/0.5 mL [...] Updated DateTime 3 161.29 cm 20 kg/m2 04347.3 3 g 56 /min 142 mm[Hg] 82 mm[Hg] Gisselle Cid [facility] 13:45:40 Date Recorded Systolic blood pressure Diastolic blood pressure Provider Name and Address Organization Details Last Updated DateTime 01/01/2023 144 mm[Hg] 82 mm[Hg] CATHERINE Garza [address] [place] [address], [address], [facility] 01/01/2023 14:44:45 Date [...] Updated DateTime 06/29/2023 161.29 cm Rayna Stapleton [facility] 06/29/2023 09:58:50 Date Recorded Body height Body mass index (BMI) Body weight Heart rate Systolic blood pressure Diastolic blood pressure Provider Name and Address Organization Details Last Updated DateTime 4 161.29 cm 20.3 kg/m2 50889.1 1 g 52 /min 128 mm[Hg] 78 mm[Hg] Minerva Soto CMA [facility] 4 13:56:26 Date Recorded Body height Body mass index (BMI) Body weight Heart rate Systolic blood pressure Diastolic blood pressure Provider Name and Address Organization Details Last Updated DateTime 4 160.02 cm 19.2 kg/m2 78679.4 1 g 49 /min 121 mm[Hg] 65 mm[Hg] Rosa Tran LPN [facility] 4 08:51:37 Date Recorded Body height Body mass index (BMI) Body weight Heart rate Systolic blood pressure Diastolic blood pressure Provider Name and Address Organization Details Last Updated DateTime 4 160.02 cm 19.6 kg/m2 38350.0 3 g 56 /min 136 mm[Hg] 74 mm[Hg] Rosa Tran LPN [facility] 4 13:55:04 Date Recorded Systolic blood pressure Diastolic blood pressure Provider Name and Address Organization Details Last Updated DateTime 01/28/2023 121 mm[Hg] 81 mm[Hg] CATHERINE Garza [address] [place] [address], [address] 02/06/2023 16:28:51 Date Recorded Systolic blood pressure Diastolic blood pressure Systolic blood pressure Diastolic blood pressure Provider Name and Address Organization Details Last Updated DateTime 05/21/2023 148 mm[Hg] 84 mm[Hg] 160 mm[Hg] 97 mm[Hg] Jatin garrido dave [facility] 3 15:52:51 Date Recorded Systolic blood pressure Diastolic blood pressure Systolic blood pressure Diastolic blood pressure Provider Name and Address Organization Details Last Updated DateTime 05/22/2023 152 mm[Hg] 90 mm[Hg] 171 mm[Hg] 87 mm[Hg] Jatin Stapleton [facility] 3 15:53:30 Date Recorded Systolic blood pressure Diastolic blood pressure Provider Name and Address Organization Details Last Updated DateTime 07/27/2023 117 mm[Hg] 78 mm[Hg] Radha Saini [facility] 07/27/2023 14:36:24 Social History Question Answer Notes LastModified by Organization Details LastModified Time Tobacco Smoking Status Current Some Day Smoker PT currently smoking occasionally Rosa Lively, [employer] 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 6-10yearssinc elastcigarett e [id number] Information not available 06/05/2021 How Many Days [...] available 06/26/2011 Mosquito Repellent Used Routinely Yes [id number] Information not available 06/26/2011 What Was The [...] Many Years Have You Smoked Tobacco? 41 Information not available 06/05/2021 Do You Or [...] intradermal, preservative free 1 completed Not Available [facility] 08/27/2019 02:34:20 Td(adult) unspecified formulation 6 completed Not Available [facility] 09/26/2023 00:24:31 influenza, unspecified formulation 7 completed Not Available [facility] 09/26/2023 00:24:31 Influenza, split virus, trivalent, preservative 2 completed Not Available [facility] 08/27/2019 02:32:24 Tdap 3 completed Not Available [facility] 08/27/2019 02:28:48 Novel [id number] 9 completed Not Available [facility] 08/27/2019 02:27:45 Influenza, split virus, trivalent, PF 3 completed Not Available [facility] 08/27/2019 02:18:58 Influenza, split virus, quadrivalent, PF 5 completed Not Available [facility] 08/27/2019 02:19:46 zoster live 5 completed Not Available [facility] 08/27/2019 02:19:45 influenza, unspecified formulation 6 completed Not Available [facility] 09/26/2023 00:24:31 influenza, unspecified formulation 7 completed Not Available [facility] 09/26/2023 00:24:31 Influenza, high-dose, quadrivalent, PF 0 completed Janee Bai LPN [facility], [facility] 05/28/2020 08:46:57 pneumococcal polysaccharide PPV23 0 completed BLANCA DOYLE, ANITRA [address] [place], [address], [facility] 06/20/2020 15:02:02 Influenza, split virus, trivalent, preservative 0 completed Not Available [facility] 08/27/2019 02:17:47 COVID-19, mRNA, LNP-S, PF, 30 mcg/0.3 mL dose 1 completed Not Available [facility] 09/26/2023 00:24:30 COVID-19, mRNA, LNP-S, PF, 30 mcg/0.3 mL dose 1 completed Not Available [facility] 09/26/2023 00:24:30 Td (adult), 2 Lf tetanus toxoid, preservative free, adsorbed 3 completed CATHERINE Garza [address] [place] [address], [address], [facility] 01/02/2023 07:56:47 Influenza, high-dose, quadrivalent, PF 1 completed Not Available [facility] 09/26/2023 00:24:30 COVID-19, mRNA, LNP-S, PF, 30 mcg/0.3 mL dose 1 completed Not Available [facility] 09/26/2023 00:24:31 COVID-19, mRNA, LNP-S, PF, 30 mcg/0.3 mL dose 2 completed Not Available [facility] 09/26/2023 00:24:31 zoster recombinant 2 completed Not Available [facility] 09/26/2023 00:24:30 Influenza, split virus, quadrivalent, preservative 2 completed Not Available [facility] 09/26/2023 00:24:30 Past Encounters Encounter ID Performer Location Encounter Start Date Encounter Closed Date Diagnosis/Indication Diagnosis SNOMED-CT Code Diagnosis ICD10 Code Diagnosis Note [id number] Tavon Machado. , [facility], OFFICE [address] [place] [address] 10/06/2002 15:52:18 08/30/2008 02:02:29 [id number] [facility] , [address] [address] 10/06/2002 00:00:00 08/30/2008 02:02:29 [id number] [facility] , [address] [address] 10/06/2002 16:36:55 08/30/2008 02:02:29 [id number] [facility] - [address] [address] 10/07/2002 15:46:52 08/30/2008 02:02:29 [id number] [facility] [address] [place] [address] 11/08/2002 16:26:26 08/30/2008 02:02:29 [id number] Tavon Machado [facility], OFFICE [address] [place] [address] 11/08/2002 15:17:41 08/30/2008 02:02:29 [id number] Tavon Machado [facility], OFFICE [address] [place] [address] 12/08/2002 15:25:39 08/30/2008 02:02:29 [id number] [facility] - [address] [address] 12/08/2002 15:51:11 08/30/2008 02:02:29 [id number] [facility] , [address] [address] 12/20/2002 14:48:00 08/30/2008 02:02:29 [id number] [facility] , [address] [address] 12/20/2002 00:00:00 08/30/2008 02:02:29 [id number] Tavon Machado [facility], OFFICE [address] [place] [address] 03/06/2003 10:13:04 08/30/2008 02:02:29 [id number] Tavon Machado [facility], OFFICE [address] [place] [address] 11/22/2003 12:59:27 11/22/2003 14:55:43 [id number] [facility] , [facility] [address] [place] [address] 12/26/2003 15:20:58 08/30/2008 02:02:29 [id number] [facility] , [facility] [address] [place] [address] 12/26/2003 00:00:00 08/30/2008 02:02:29 [id number] Tavon Machado [facility], OFFICE [address] [place] [address] 01/19/2004 14:11:55 01/19/2004 15:54:03 [id number] [facility], TERRELL FISH MD ASP, [facility] [address] [place] [address] 03/27/2004 10:47:20 03/28/2004 09:21:52 [id number] [facility] - [address] [address] 10/15/2004 14:29:29 10/15/2004 14:29:57 [id number] Tavon Machado , [facility], OFFICE [address] [place] [address] 12/11/2004 15:06:41 12/11/2004 17:50:16 [id number] [facility] , [address] [address] 12/11/2004 16:00:54 12/12/2004 08:22:27 [id number] [facility] , [address] [address] 12/11/2004 00:00:00 08/30/2008 02:02:29 [id number] [facility] , [address] [address] 01/02/2005 14:50:32 08/30/2008 02:02:29 [id number] [facility] Rad[facility] , [address] [address] 01/02/2005 00:00:00 08/30/2008 02:02:29 [id number] Tavon Machado , [facility], OFFICE [address] [place] [address] 05/13/2005 14:40:24 08/30/2008 02:02:29 [id number] [facility] , [address] [address] 05/13/2005 15:36:22 08/30/2008 02:02:29 [id number] [facility] , [address] [address] 05/13/2005 00:00:00 08/30/2008 02:02:29 [id number] Angelo Mcwilliams , PT Physical Therapy, [address] [address] 05/26/2005 12:56:12 08/30/2008 02:02:29 [id number] Angelo Mcwilliams , PT Physical Therapy, [address] [address] 06/11/2005 15:17:06 08/30/2008 02:02:29 [id number] Tavon Machado , [facility], OFFICE [address] [place] [address] 12/24/2005 15:41:01 12/25/2005 08:44:40 [id number] Tavon Machado , [facility], OFFICE [address] [place] [address] 12/24/2005 15:41:01 12/25/2005 08:44:40 [id number] [facility] Radiology , [address] [address] 01/15/2006 14:31:58 01/16/2006 09:26:07 [id number] [facility] , [address] [address] 01/15/2006 00:00:00 08/30/2008 02:02:29 [id number] Tavon Machado [facility], OFFICE [address] [place] [address] 04/22/2006 15:44:51 04/23/2006 08:28:48 [id number] [facility] - [address] [address] 04/22/2006 16:15:54 04/22/2006 16:16:11 [id number] Tavon Machado [facility], OFFICE [address] [place] [address] 04/30/2006 15:02:17 05/01/2006 08:35:41 [id number] [facility] , [address] [address] 05/31/2007 14:16:16 06/01/2007 09:45:04 [id number] [facility] , [address] [address] 05/31/2007 00:00:00 08/30/2008 02:02:29 [id number] Tavon Machado [facility], OFFICE [address] [place] [address] 06/01/2007 15:54:13 08/30/2008 02:02:29 [id number] FP TREATMENT NURSE [facility] FP, [facility], [address]ICE [address] [place] [address] 07/06/2007 15:59:53 08/30/2008 02:02:29 [id number] [facility] , [facility] [address] [place] [address] 07/06/2007 15:26:24 07/07/2007 09:44:25 [id number] [facility] , [address] [address] 07/06/2007 00:00:00 08/30/2008 02:02:29 [id number] [facility] 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 Radiology , [address] [address] 07/06/2007 17:40:10 07/07/2007 09:44:33 [id number] [facility] 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 [facility] , [address] [address] 07/06/2007 00:00:00 08/30/2008 02:02:29 [id number] Tavon Machado, [facility], OFFICE [address] [place] [address] 12/20/2007 09:22:27 08/30/2008 02:02:29 [id number] [facility] - [address] [address] 12/20/2007 09:59:25 12/20/2007 09:59:40 [id number] [facility] , [address] [address] 06/24/2008 11:14:13 06/26/2008 09:15:42 [id number] [facility] - [address] [address] 07/24/2008 12:24:22 07/24/2008 12:24:31 [id number] Tavon Machado, [facility], OFFICE [address] [place] [address] 07/24/2008 11:11:08 08/30/2008 02:02:29 [id number] [facility] , [address] [address] 07/30/2009 12:03:57 07/31/2009 14:41:39 [id number] ANITRA Paz, [facility], [address]ICE [address] [place] [address] 07/30/2009 12:53:39 08/01/2009 09:41:41 [id number] ANITRA Paz, [facility], [address]ICE [address] [place] [address] 09/03/2009 10:36:11 09/05/2009 09:01:25 [id number] ANITRA Montalvo, [facility], [address]ICE [address] [place] [address] 02/18/2010 16:06:54 02/21/2010 11:14:25 [id number] ANITRA Montalvo, [facility], OFFICE [address] [place] [address] 03/04/2010 10:51:19 03/05/2010 09:13:07 [id number] ANITRA Montalvo, [facility], OFFICE [address] [place] [address] 04/08/2010 10:49:52 04/10/2010 12:33:40 [id number] ANITRA Montalvo, [facility], [address]ICE [address] [place] [address] 05/06/2010 11:06:59 05/09/2010 08:14:35 [id number] ANITRA Montalvo, [facility], OFFICE [address] [place] [address] 09/04/2010 10:12:54 09/09/2010 09:54:47 [id number] [facility] Radiology , [facility] [address] [place] [address] 09/04/2010 11:35:48 09/05/2010 13:47:30 [id number] ANITRA Guidry, [facility], OFFICE [address] [place] [address] 02/17/2011 15:12:45 02/17/2011 16:18:23 [id number] ANITRA Guidry, [facility], OFFICE [address] [place] [address] 03/03/2011 11:25:18 03/03/2011 12:35:48 [id number] ANITRA Guidry, [facility] [facility], OFFICE [address] [place] [address] 05/05/2011 11:10:16 05/05/2011 12:18:53 [id number] ANITRA Guidry, [facility], OFFICE [address] [facility] [place] [address] 06/16/2011 11:24:27 06/16/2011 12:27:11 [id number] ANITRA Guidry, [facility], OFFICE [address] [facility] [place] [address] 09/12/2011 11:49:49 09/12/2011 12:53:46 [id number] Yeny Elizabeth NP FP, [facility], OFFICE [address] [facility] [place] [address] 09/15/2011 10:11:06 09/15/2011 11:20:27 [id number] [facility] MAMMO TECH Radiology , [facility] [address] [facility] [place] [address] 09/15/2011 11:18:59 09/22/2011 11:25:46 [id number] [facility] 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 Radiology , [facility] [address] [facility] [place] [address] 09/15/2011 11:22:42 09/22/2011 11:26:39 [id number] [facility] 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 Radiology , [address] [place] [address] 09/15/2011 13:02:14 09/22/2011 11:27:06 [id number] AINTRA Guidry, [facility], OFFICE [address] [facility] [place] [address] 09/19/2011 16:05:15 09/19/2011 17:14:17 [id number] ANITRA Guidry, [facility], OFFICE [address] [facility] [place] [address] 10/16/2011 11:04:47 10/16/2011 12:36:29 [id number] ANITRA Guidry, [facility], OFFICE [address] [place] [address] 6 10/23/2011 10:47:33 10/23/2011 11:31:44 [id number] Yeny Elizabeth NP FP, [facility], OFFICE [address] [facility] [place] [address] 10/28/2011 10:53:53 10/28/2011 11:41:32 [id number] Toby Huffman MD , [facility], OFFICE [address] [facility] [place] [address] 11/10/2011 11:00:59 11/10/2011 12:05:22 [id number] Boo Christine MD FP, [facility], OFFICE [address] [facility] [place] [address] 12/22/2011 11:30:06 12/22/2011 12:11:38 [id number] Balbir Cruz MD Radiology , [facility] [address] [facility] [place] [address] 05/03/2012 11:01:39 05/04/2012 10:48:40 [id number] Boo Christine MD , [facility], OFFICE [address] [facility] [place] [address] 05/11/2012 11:43:11 05/11/2012 12:45:41 [id number] [facility] FLU CLINIC FP, [facility], OFFICE [address] [facility] [place] [address] 05/13/2012 06:44:42 05/13/2012 16:24:11 [id number] Yeny Elizabeth NP FP, [facility], OFFICE [address] [facility] [place] [address] 10/11/2012 14:33:17 10/11/2012 17:18:16 [id number] Antonio Urbano MD Radiology , [facility] [address] [facility] [place] [address] 10/18/2012 11:02:02 10/19/2012 10:11:53 [id number] Yeny Elizabeth NP FP, [facility], OFFICE [address] [facility] [place] [address] 11/29/2012 11:09:20 11/29/2012 12:09:21 [id number] Yeny Elizabeth NP FP, [facility], OFFICE [address] [facility] [place] [address] 12/27/2012 11:13:39 12/27/2012 12:12:31 [id number] Yeny Elizabeth NP FP, [facility], OFFICE [address] [place] [address] 6 01/24/2013 10:58:06 01/24/2013 11:59:15 [id number] Yeny Elizabeth NP FP, [facility], OFFICE [address] [place] [address] 6 05/02/2013 10:58:25 05/02/2013 12:23:22 Acute bronchitis 50518528 Pain of joint 47388492 Influenza vaccine needed [id number] [id number] Boo Christine MD FP, [facility], OFFICE [address] [place] [address] 6 12/26/2013 15:36:32 12/26/2013 16:51:55 Adult health examination 897616298 see Risk Assessment and Lifestyle Change Counseling section above Allergic rhinitis 17273817 Backache 433776308 Sinusitis 53221803 Screening for malignant neoplasm of cervix 308438482 Thyroid nodule 512145026 [id number] Boo Christine MD FP, [facility], OFFICE [address] [place] [address] 6 01/22/2015 13:40:10 01/22/2015 14:50:12 Adult health examination 569399447 see Risk Assessment and Lifestyle Change Counseling section above Benign ess ential hypertension 4449703 Blood pressure at goal Backache 633202592 Major depr ession, melancholic type 671531818 Gastroesop hageal reflux disease 408485433 Sleep apnea 37543758 [id number] Boo Christine MD FP, [facility], OFFICE [address] [place] [address] 6 04/10/2015 11:01:34 04/10/2015 12:19:45 Lifestyle 739199527 Benign ess ential hypertension 5817342 Blood pressure at goal Backache 574256558 Varicella vaccination 57452050 Influenza vaccine needed 0833677245 [id number] MD VICK Cardenas, [facility], OFFICE [address] [place] [address] 6 04/27/2015 11:53:26 04/27/2015 12:51:23 Backache 965263268 Benign ess ential hypertension 9818508 Blood pressure at goal Will be getting another 24hr monitor by nephrologi st due to labile BP, difficult to control [id number] Yeny Elizabeth NP FP, [facility], OFFICE [address] [place] [address] 6 06/04/2015 11:08:23 06/04/2015 14:55:19 Tuberculosis screening 930835374 Z11.1 [id number] Yeny Elizabeth NP FP, [facility], OFFICE [address] [place] [address] 6 06/18/2015 11:15:27 06/18/2015 13:05:30 Tuberculosis screening 376489456 Z11.1 [id number] Yeny Elizabeth NP FP, [facility], OFFICE [address] [place] [address] 6 07/26/2015 11:30:59 07/26/2015 12:23:47 Benign essential hypertension 3808818 I10 Blood pressure NOT at goal. [id number] Boo Christine MD , [facility], OFFICE [address] [place] [address] 6 01/25/2016 15:49:01 01/29/2016 10:59:33 Adult health examination 630606279 Z00.00 see Risk Assessment and Lifestyle Change Counseling section above Benign ess ential hypertension 1324317 I10 Blood pressure NOT at goal. Mixed hyperlipidemia 267 396780 E78.2 [id number] Boo Christine MD , [facility], OFFICE [address] [place] [address] 6 02/29/2016 09:37:18 02/29/2016 10:27:55 Hand pain 84945411 M79.642 Benign ess ential hypertension 9618972 I10 Blood pressure NOT at goal. [id number] Boo Christine MD , [facility], OFFICE [address] [place] [address] 6 07/28/2016 14:23:55 07/28/2016 15:14:02 Benign essential hypertension 1631641 I10 Blood pressure NOT at goal despite 3 agents. Can't tolerate spironolac tone. Mixed hyperlipidemia 267 409280 E78.2 Acute uppe r respiratory infection 36566874 J06.9 [id number] Boo Christine MD , [facility], OFFICE [address] [place] [address] 6 01/26/2017 15:38:43 01/26/2017 17:01:04 Adult health examination 691008831 Z00.00 see Risk Assessment and Lifestyle Change Counseling section above Benign ess ential hypertension 3962135 I10 Blood pressure at goal. Backache 923994478 M54.9 [id number] Boo Christine MD , [facility], OFFICE [address] [place] [address] 6 05/19/2017 15:23:45 05/19/2017 16:05:28 Cough 18601472 R05 Benign ess ential hypertension 5480131 I10 Blood pressure not at goal. [id number] Boo Christine MD , [facility], OFFICE [address] [place] [address] 6 06/26/2017 07:49:26 06/26/2017 08:38:01 Benign essential hypertension 9292007 I10 Blood pressure at goal [id number] Boo Christine MD , [facility], OFFICE [address] [place] [address] 6 02/16/2018 15:32:13 02/16/2018 16:54:41 Adult health examination 874796286 Z00.00 see Risk Assessment and Lifestyle Change Counseling section above Depression screening 171 439211 Z13.89 depression screening tool administer ed, entered into emr, scored and discussed, time greater than 7.5 minutes Benign ess ential hypertension 7621674 I10 Blood pressure at goal Cough 43383235 R05 Using ProAir occasional ly Screening for malignant neoplasm of colon 392605368 Z12.11 Referral for a DIRECT booked colonoscop y. This patient is a healthy ASA Class 1 or 2 patient (only mild systemic disease), or a STABLE, well controlled insulin dependent diabetic. They do not have serious cardiac disease ie CT/angiopl asty within 1 year, symptomati c CHF; renal failure with CKD 4 or 5; take Coumadin, Plavix, Aggrenox, etc. Sleep apnea 63687897 G47 .30 Please get back to me with name of Cpap provider, will update orders so you can use it again. Impaired f asting glycemia 247664815 R73.01 Blood sugar today 84, continue to monitor [id number] Boo Christine MD , [facility], OFFICE [address] [place] [address] 6 09/14/2018 17:17:47 09/16/2018 11:01:46 Mixed hyperlipidemia 395662684 E78.2 Benign ess ential hypertension 4120296 I10 Blood pressure at goal Cough 24718967 R05 Using ProAir occasional ly Backache 061525813 M54.9 Wheezing 07863655 R06.2 Normal grief reaction 27 4435017 F43.20 [id number] Boo Christine MD , [facility], OFFICE [address] [place] [address] 6 10/05/2018 15:20:09 10/05/2018 16:27:59 Benign essential hypertension 9951625 I10 Thyroid nodule 662955536 E04.1 Cough 15670931 R05 [id number] Boo Christine MD , [facility], OFFICE [address] [place] [address] 6 11/02/2018 16:39:52 11/03/2018 09:00:16 Benign essential hypertension 8630980 I10 [id number] Walter López MD , [facility], OFFICE [address] [place] [phone] 6 11/25/2019 13:48:50 11/28/2019 14:47:15 Urinary tract infectious disease 13466892 N39.0 Patient instructed to push fluids, to follow up for persistent or worsening symptoms or fever or back pain.Treat for presumptiv e infection w/ bactrim.Co nsider musculoske latal vs stone. If no improvemen t will need imaging and cultures. [id number] Walter López MD , [facility], OFFICE [address] [place] [address] 6 11/30/2019 15:08:40 12/02/2019 13:07:04 Low back pain 317187237 M54.5 Nausea 120093581 R11.0 Night sweats 95036340 R6 1 [id number] Boo Christine MD , [facility], OFFICE [address] [place] [address] 6 05/25/2020 16:15:13 05/28/2020 13:23:56 Active or passive immunization 505536855 Z23 [id number] BLANCA DOYLE NP , [facility], OFFICE [address] [place] [address] 6 06/20/2020 09:51:52 06/22/2020 12:18:11 Abdominal pain 08333129 R10.9 New concern, unclear if all symptoms related to same cause, ? cystitis and/or kidney stones given lower abdominal pain with radiation to groin with back pain, POCT urine with trace leuks only, plan to send for culture. Mass palpated in periumbili laney area ? hernia, plan to obtain CT of abdomen and pelvis to further assess all concerns. Screening mammography 24 337965 Z12.31 Routine screening due, patient agreeable, would like to schedule with G, aware of wait time. Active or passive immunization 127687423 Z23 Depression screening 171 704866 Z13.31 - depression screening tool administer ed, entered into emr, scored and discussed, time greater than 7.5 minutes-Co ntinue sertraline [id number] Boo Christine MD , [facility], OFFICE [address] [place] [address] 6 07/03/2020 15:32:37 07/04/2020 18:49:34 Essential hypertension 10652612 I10 Major depr ession, melancholic type 496971049 F32.9 Multiple n odules of lung 916610230 R91.8 Liver mass 423164195 R16 .0 [id number] Boo Christine MD , [facility], OFFICE [address] [place] [address] 6 08/21/2020 11:04:42 08/21/2020 14:03:59 Essential hypertension 22184133 I10 Vitamin D deficiency 347 50854 E55.9 Thyroid nodule 612778954 E04.1 Multiple n odules of lung 325460778 R91.8 diffuse, bilateral Tremor 61676668 R25.1 L hand 4th & 5th fingers. [id number] Boo Christine MD , [facility], OFFICE [address] [place] [address] 10/23/2020 09:00:28 10/24/2020 16:08:20 Essential hypertension 41318419 I10 Mixed hyperlipidemia 267 292811 E78.2 Major depr ession, melancholic type 368092196 F32.9 sertraline 200mg daily. Multiple n odules of lung 832085758 R91.8 diffuse, bilateral Vitamin D deficiency 347 23388 E55.9 [id number] Boo Christine MD , [facility], OFFICE [address] [place] [address] 12/06/2020 11:27:07 12/07/2020 09:46:33 Essential hypertension 31183530 I10 Mixed hyperlipidemia 267 301375 E78.2 Chronic ob structive pulmonary disease 65435767 J44.9 Adult heal th examination 362313808 Z00.00 see Risk Assessment and Lifestyle Change Counseling section above Counseling 737426874 Z71 .9 including cardiovasc ular risk reduction counseling Depression screening 171 993802 Z13.31 depression screening tool administer ed, entered into emr, scored and discussed, time greater than 7.5 minutes. Screening reviewed with pt. treated for depression with sertraline . Screening for alcohol abuse 080854812 Z13.39 [id number] Everardo Vazquez MD Endocrino logy, [facility] [address] [place] [address] 12/20/2020 15:28:49 12/21/2020 06:31:01 Thyroid nodule 902290365 E04.1 Right nodule. Cytology from [facility] reports benign . This typically would [...] genetic analysis. Multiple n odules of lung 873872408 R91.8 Adds to complexity . Concern about whether we can definitive ly link lung nodules to a known primary. Chronic ob structive pulmonary disease 21224695 J44.9 Clinically . Recent PFTs (08/30) c/w emphysema or interstiti al lung disease. Vitamin D deficiency 347 13754 E55.9 Level of 13 (07/29). Given 50K weekly x 1 month. No f/u orders placed. [id number] Everardo Vazquez MD Endocrino logy, [facility] [address] [place] [address] 12/27/2020 12:55:55 12/28/2020 06:32:34 [id number] Everardo Vazqeuz MD Endocrino logy, [facility] [address] [place] [address] 01/03/2021 14:30:30 01/08/2021 13:15:42 Thyroid nodule 127150792 E04.1 Right nodule. Cytology: [place] IV: Suspicious for Follicular Neoplasm. Genomic sequencing science job titles pending. Also expression atlas pending. Reviewed ramificati [...] these options are consistent with cytology from [facility] which reported results as benign . While thyroid CA can metastasiz e to lung, one would typically expect to see adenopathy . She has not had significan t apparent adenopathy on exam. Have discussed case with Pulmonary. Genetic sequencing and expression atlas pending. Multiple n odules of lung 478246317 R91.8 Adds to complexity . Concern about whether we can definitive ly link lung nodules to a known primary. Chronic ob structive pulmonary disease 29173579 J44.9 Clinically . Recent PFTs (08/30) c/w emphysema or interstiti al lung disease. Vitamin D deficiency 347 60375 E55.9 Level of 13 (07/29). Given 50K weekly x 1 month. No f/u orders placed. 12/28: suggest get vit D level checked. [id number] Boo Christine MD , [facility], OFFICE [address] [place] [address] 06/05/2021 10:44:10 06/05/2021 11:39:08 Essential hypertension 06666513 I10 Chronic ob structive pulmonary disease 38113664 J44.9 Cigarette smoker 4775525 7 F17.210 Tobacco user 560664423 Z 72.0 Screening for osteoporosis 206251924 Z13.820 Low back pain 386186777 M54.50 Multiple n odules of lung 983479769 R91.8 diffuse, bilateral Thyroid nodule 426015530 E04.1 Benign ess ential hypertension 5018983 I10 [id number] GLENROY MARTI MD , [facility], OFFICE [address] [place] [address] 07/08/2021 11:51:46 07/16/2021 09:19:52 Spasm 65831385 R25.2 describes muscle jerking like spasmrecen t thyroidect yeni, r/o parathyroi d injury - check [place] magnesiumi f all normal, she wants to talk to dr. Vazquez at upcoming appt and ask if he thinks this is related somehow to her thyroid. I advised her to let me know if he states it isn't. 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 Should have TSH/free T4 checked (per d/c summary) and see Dr. Vazquez as scheduled. She will have labs today. [id number] Everardo Vazquez MD Endocrino logy, [facility] [address] [place] [address] 07/18/2021 11:18:55 07/26/2021 06:28:00 Multiple nodules of lung 937822705 R91.8 Adds to complexity . Concern about whether we can definitive ly link lung nodules to a known primary. Chronic ob structive pulmonary disease 77995294 J44.9 Clinically . Recent PFTs (08/30) c/w emphysema or interstiti al lung disease.Di scussed this in relation to smoking and reasons to quit. Vitamin D deficiency 347 70052 E55.9 D= 36.4 (06/30); was 33 (01/28); was 13 (07/29). Had 50K weekly x 1 month.Take s 1-2 daily supplement (07/30). Cigarette smoker 2318007 7 F17.210 Since no clear evidence of metastatic disease, discussed risks/harm s of smoking. Tobacco user 129910418 Z 72.0 Sweating 127676828 R61 Some diarrhea afterwards . Check catechols and also 5hiaa. 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 Not on repalcemen t. check TFTs. [id number] GLENROY MARTI MD , [facility], OFFICE [address] [place] [address] 10/31/2021 13:22:38 11/11/2021 09:15:16 Pre-surgery evaluation 283193769 Z01.818 Summary: has low rahel-opera tive risk [...] prophylaxi s as per surgical protocol Backache 181781064 M54.9 rare use of tramadol - refill sent [id number] GLENROY MARTI MD , [facility], OFFICE [address] [place] [address] 12/23/2021 13:29:28 12/23/2021 14:49:50 Adult health examination 462354387 Z00.00 See risk assessment portion of HPI Counseling 110780023 Z71 .9 including cardiovasc ular risk reduction counseling Cardiovasc ular risk reduction was discussed including benefits and risks of aspirin, exercise goals, healthy eating and healthy weight . Discussion greater than 7.5 minutes. Depression screening 171 710942 Z13.31 depression screening tool administer ed, entered into emr, scored and discussed, time greater than 7.5 minutes Screening for alcohol abuse 254224411 Z13.39 An audit alcohol screening test was performed and scored. Patient was asked about alcohol use, advised about risks of alcohol, and personal risk was assessed, patient agreed to plan and given informatio n about available resources if needed. Discussion including screening and scoring less than 7.5 minutes Mixed hyperlipidemia 267 361727 E78.2 Cholestero l is at goal. LDL 65Continue to work on diet and exercise as discussed Essential hypertension 41524767 I10 Controlled . Continue current regimen. Pain of ri ght hip joint 5296733470 27604 M25.551 xrays r/o DJDES Tylenolhad been told not to take NSAIDs due to hypertensi on. Used to prefer Aleve. If pain is not controlled with Tylenol, will try Aleve (or prescripti on naproxen 500 mg) as needed - let me know. Major depr ession, melancholic type 752824893 F33.1 continue sertraline , follow up with therapist. Has been sensitive to other meds so would prefer to stay on same dose. I need a schedule, I need someplace to go. No thoughts of harming herself. Screening mammography 24 829419 Z12.31 Chronic ob structive pulmonary disease 87008167 J44.9 breathing OK - smoking 1 pk/weekCT showed Upper lobe predominan t centrilobu lar emphysema in 01/25/21 at [facility].uses Breo every other day or every 3 days. Legs get stiff when she uses this daily.No glaucoma Mass of axilla 029793052 R22.2 felt last but none now. ?lymph nodeNothin g palpable todayUS ordered [id number] Everardo Vazquez MD Endocrino logy, [address] [address] 04/03/2022 09:31:23 04/03/2022 13:42:46 Sweating 577302872 R61 Has c/o diarrhea and intermitte nt sweats. Had normal catechols. 5hiaa was slightly high (issues with urine pH collection ). Not high enough to be suspicious for carcinoid. If sx persist, may need to repeat. Multiple n odules of lung 017554997 R91.8 Adds to complexity . Concern about whether we can definitive ly link lung nodules to a known primary. Chronic ob structive pulmonary disease 96827063 J44.9 Clinically . Recent PFTs (08/30) c/w emphysema or interstiti al lung disease.Di scussed this in relation to smoking and reasons to quit. Vitamin D deficiency 347 44700 E55.9 D= 47.5 (03/31); was 36.4 (11); was 33 (6); was 13 (07/29). Was taking 1-2 daily supplement but lately more prn. Cigarette smoker 4946375 7 F17.210 Since no clear evidence of metastatic disease, discussed risks/harm s of smoking. 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 Not on replacemen t. Check TFTs. [id number] Walter López MD , [facility], OFFICE [address] [place] [address] 05/16/2022 14:08:49 05/16/2022 14:58:54 Tobacco user 867524315 Z72.0 not discussed today, will discuss at f/usmoking occasional ly per chart review Active or passive immunization 270707102 Z23 pt already had flu vaccinerem inded about shingles vaccine Pain in right hand 56081 50032 26570 M79.641 s/p fall 2 weeks agorepeat hand/wrist xrays given recurrent edema and painok to continue compressio n brace, rest, ice in the interim Pleuritic pain 0684913 R 07.81 new as of last nightreass uring examencour aged to continue monitoring and call with any changes/wo rsening Pain of ri ght hip joint 4376107986 34504 M25.551 May xray reviewed - moderate degenerati ve changesPT and ortho referrals sentcall as needed Bone density finding 385 579012 M85.80 results 03/2022 reviewed - low bone massFRAX score reviewed: 10 y risk major risk 11%, hip 3.3%discus sed tx options, for now will optimize vitamin D, calcium, and weight-godwin ring and muscle-str engthening repeat scan 2 years Urgent rosalino alan to urinate 91874329 R39.15 POC UA showing trace leuksnot enough urine for culture at appt, will have pt return for this Chronic ob structive pulmonary disease 40081061 J44.9 looking into new pulmonolog ist, has recs from Dr. Vazquez1x refill sent of GhulamActimo so she has it on hand in the interim Backache 546804666 M54.9 takes tramadol sparingly as needed for chronic back painlast fill 01/2022 per toytbabsl nirav reassess at f/u [id number] Walter López MD , [facility] [facility], OFFICE [address] [place] [address] 01/01/2023 13:14:36 01/01/2023 14:31:56 Adult health examination 084662513 Z00.00 Depression screening 171 689700 Z13.31 depression screening tool administer ed. as below. Screening for alcohol abuse 079431785 Z13.39 Alcohol use screening tool administer ed. rec max 7 drinks/wee k. Essential hypertension 42369083 I10 consistent ly above goalincrea se nifedipine to 90mg daily (currently taking 60mg daily)f/u 1 month to reassess Mixed hyperlipidemia 267 736764 E78.2 Cholestero l is at goalContin ue to work on diet and exercise as discussed Screening mammography 24 843201 Z12.31 due Active or passive immunization 680494392 Z23 reminded about shingles vaccinetet anus vaccine will do Increased frequency of urination 843722087 R35.0 POC UA negative, unable to send for culture due to limited supplycall with any new/worsen ing symptoms Chronic ob structive pulmonary disease 21856023 J44.9 needs referral to new pulmonolog ist, she will get the name and let us know where she'd like to godoing well otherwise with current inhaler regimen Impaired f asting glycemia 314875018 R73.01 improving, recent A1C 5.2 Bone density finding 385 170799 M85.80 results 03/2022 reviewed - low bone massFRAX score reviewed: 10 y major risk 11%, hip 3.3%prefer s to continue to optimize vitamin D, calcium, and weight-godwin ring and muscle-str engthening repeat scan 2 years Major depr ession, melancholic type 918094436 F33.1 reports acute on chronic depression does virtual therapy which helpsalso continues on sertraline Tobacco user 923482641 Z 72.0 We discussed your smoking today for more than 3 minutes. Cigarette use is the leading cause of preventabl e disease, disability , and in the [place]. We talked about tools and medication s available to help you in smoking cessation. We discussed utilizing our smoking cessation head athletic trainer/strength coach and online resources. Your personal goal: to quit! Multiple n odules of lung 571749744 R91.8 per problem list/forme r PCP CE - non-cancer ous. followed by Dr. Leavitt . 09/04/21 note - surveillan ce is complete. pt interested in low dose CT screening to use as f/u as well, as above. Candidiasis of mouth 797 91154 B37.0 will treat with darian per patient preference continue good oral hygiene after inhaler usecall if not resolving History of subtotal thyroidectomy 560782261 Z90.09 original concern for metastatic CA as multiple lung nodules, PET lit up mass in thyroid, now s/p subtotal thyroidect yeni, not on medication , following with Dr. Vazquez regularly History of partial resection of colon 417921978 Z90.49 pre cancerous polyp removal 2008, gets colonoscop ies q5 years [id number] Walter López MD , [facility], OFFICE [address] [place] [address] 05/18/2023 11:17:42 05/19/2023 14:44:12 [id number] JANEE SHIELDS MD , [facility], OFFICE [address] [place] [address] 02/05/2024 13:40:32 02/05/2024 17:40:33 Cough 83850348 R05.9 Essential hypertension 18116204 I10 Has been elevated in the past so will monitor closely. Reduce nifedipine to 60 mg daily. Continue losartan and labetolol. Mixed hyperlipidemia 267 869377 E78.2 She would like to try discontinu ing the statin. Agreed this is fine but we should recheck her cholestero l in a month. Lightheadedness 80347323 8 R42 Mostly with standing. I think [...] the beta fidel. Unintentio nal weight loss 771490707 R63.4 Thinks this was due to breaking her teeth, sore teeth. Advised her to continue to use her protein shakes. Will check some labs as above. Will need to monitor. Chronic ob structive pulmonary disease 73104139 J44.9 Continue inhalers and follow up with pulm. Refilled albuterol - see below. Abnormal gait 77742232 R 26.9 She does have a stiff and tentative gait. Unclear whether this is due to deconditio luisito, her concerns about falling or something neurologic al. Will re-evaluat e at next visit. 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 Not on replacemen t.Update TFTs since having sx. Chronic ob structive pulmonary disease 27416562 J44.9 Clinically . Recent PFTs (08/30) c/w emphysema or interstiti al lung disease.Di scussed this in relation to smoking and reasons to quit. Cigarette smoker 9636219 7 F17.210 Since no clear evidence of metastatic disease, discussed risks/harm s of smoking. Tobacco user 827164311 Z 72.0 counseling . Thyroid fu nction tests abnormal 848494176 R94.6 Not controlled . TSH= 2.3 (03/02) was 1.32 (01/31) ft4= 0.71 (03/02); was 0.7 (07/02) She is having multiple sx that might be c/w insufficie nt thyroid. Low T4 in setting of normal TSH is not c/w primary abnormalit y. Suggests possibilit y of secondary (pituitary ) issue.[facility] k labs. Dizziness 888060410 R42 Not controlled Orthostati cs show now rise in HR with standing (drops systolic > 20 but not hypotensiv e).On labetalol- 150 bid (was 300 bid). decreased a year ago (?06/01?)c heck cortisol/a cth. If OK, may want to review use of labetalol vs. change to alternativ e. Osteopenia with high fracture risk 9304966896 36268 M85.80 BMD @ VMGL1-L4= -0.1 (05/01) .Femoral Neck= -1.9 (05/01)Left Total Hip= -1.5 (05/01)Risk s: thin, white, post-menop ausal and smoker. Has had wrist fx. Update with new baseline. [id number] Everardo Vazquez MD Endocrino logy, [facility] [address] [place] [address] 06/23/2024 13:35:00 06/27/2024 06:21:22 Thyroid function tests abnormal 683475080 R94.6 Not controlled . TSH=4.12 (06/02) was [...] related to thyroid. 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 Not on replacemen t.Update TFTs since TSH is slowly rising (although still WNL). Dizziness 859767419 R42 Not controlled Orthostati cs showed rise in HR with standing (drops systolic > 20 but not hypotensiv e).On labetalol- 150 bid (was 300 bid). decreased a year ago (?06/01?) Checked cortisol/a cth and those were OKMay want to review use of labetalol vs. change to alternativ e. Osteopenia with high fracture risk 2763375263 70290 M85.80 BMD @ VMGL1-L4= -0.1 (05/01) .Femoral Neck= -1.9 (05/01)Left Total Hip= -1.5 (05/01)Risk s: thin, white, post-menop ausal and smoker. Has had wrist fx. Recommend: - Update with new baseline in future.- Talk to PCP about physical therapy focus on exercises that don't make dizziness worse. Chronic ob structive pulmonary disease 36865693 J44.9 Clinically . Recent PFTs (08/30) c/w emphysema or interstiti al lung disease.Di scussed this in relation to smoking and reasons to quit. Cigarette smoker 1096471 7 F17.210 Since no clear evidence of metastatic disease, discussed risks/harm s of smoking. Tobacco user 956233675 Z 72.0 counseling . Health Concerns Section Related Observation LastModified by Organization Detai ls LastModified Time None Recorded Concern Status LastModified by Organization Details LastModified Time None Recorded Advance Directives Directive None Recorded Payers Encounter Date Sequence Insurance Name Policy Number Policy Coppola Covered Member ID Coppola Member ID Guarantor Name 01/01/[address] [facility] (MEDICARE SUPPLEMENT) Linda Diehl [id number] Linda Diehl 01/01/2023 1 [facility] (MEDICARE REPLACEMENT/A DVANTAGE - PPO) [id number] Linda A Dinan [id number] Linda Diehl 05/18/[address] [facility] (MEDICARE SUPPLEMENT) Linda Dinan [id number] Linda Diehl 05/18/2023 1 [facility] (MEDICARE REPLACEMENT/A DVANTAGE - PPO) [id number] Linda A Dinan [id number] Linda Carlosan 02/05/2024 1 [facility] (MEDICARE REPLACEMENT/A DVANTAGE - PPO) [id number] Linda A Dinan [id number] Linda Gonzalezan 05/05/2024 1 [facility] (MEDICARE REPLACEMENT/A DVANTAGE - HMO) [id number] Linda A Dinan [id number] Linda Dinan 06/23/2024 1 [facility] (MEDICARE REPLACEMENT/A DVANTAGE - PPO) [id number] Linda A Dinan [id number] Linda Diehl Notes Date Note Type Note [...] Risk Assesment:Family History of Coronary Artery Disease(father CT age 62);Does not participate in regular exercise [...] pressure; Has been difficult to control. 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 Has COPD - sees pulm, uses a daily inhaler and albuterol prn JANEE SHIELDS MD [address] [place] [address], [phone], [facility] 02/05/2024 16:07:07 4 text/html ThyroidReported bypatient.Previous Evaluation:TSH: [...] or evaluation until current issues came up.a/vmg-smoking [id number] bypatient.ImportanceOn a scale of 1-10 with 1 [...] [place] [facility] PCPLabs cuedSmoking only occasionallyPT has [...] atorvastatin stopped.SOCIAL Hx (updated):12/28: OT worked at [employer] in [place].Used to smoke - typically < 1-2 ppd. [...] suspicious. Had lobectomy (07/30) Bx done through [facility] Radiology: 2.2x1.7x2.9 (5 passes)- reported as [...] compared to July 2020. Everardo Vazquez MD [address] [place] [address], [phone], [facility] 05/05/2024 12:57:58 4 text/html ThyroidReported bypatient.Previous Evaluation:Previous biopsy cytology ([place] IV: Suspicious for follicular neoplasm. 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 F/U prn.PULM: [facility] ([place]) Follow-Up: thyroid noduleVMG Tobacco / Vaping Use epLV on 05/03LAst labs on 06/02Last Thyroid US on 1PT had a Ranjith[place] [facility] by PCPNO Labs cuedSmoking only occasionallyPT [...] balance. 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 [...] [place].4 other sisters: one older. 3 younger. 11/24: No major changes. of sister (age 55).Left [...] suspicious. Had lobectomy (07/30) Bx done through [facility] Radiology: 2.2x1.7x2.9 (5 passes)- reported as [...] compared to July 2020. Everardo Vazquez MD [address] [place] [address], [place], [phone], [facility] 06/26/2024 18:32:05 OBGyn Episode No OBEpisode recorded.
== END 2024-12-09 11:18 | disposition home or self-care (01) ==
LOC: HO.HPS 11:00
PROVIDERS: PCP Nurse Practitioner Family; Referring Provider Nurse Practitioner Family; Visit Provider Physician Assistant Medical
DX: F17.210 Nicotine dependence, cigarettes, uncomplicated (principal)
CPT/HCPCS: G0296

== ENCOUNTER 2024-12-09 11:32 | Outpatient (REF) | payer MEDICARE, SELFPAY ==
--- NOTE | ~2024-12-09 | CT_ITS ---
CLINICAL HISTORY: F17.210 - Nicotine dependence, cigarettes, uncomplicated CT lung cancer screening (LDCT) Comparison: None Technique: Axial CT images of the chest using low-dose technique. Referring provider counseled the patient on shared decision-making for LDCT screening. Additional counseling was provided on smoking cessation. Effective radiation dose total: DLP 22.5 mGycm, CTDIvol 0.7 mGy. Findings: Lung: Trachea and central bronchi are patent. Mild apical centrilobular emphysema. 3 mm right upper lobe nodule image 24 series 4. 2 mm noncalcified left lower lobe nodule image 102 series 4. A few additional scattered sub 5 mm nodules are seen bilaterally. No dense consolidation, effusion or pneumothorax. Coronary artery calcifications: Moderate Aorta is nonaneurysmal. No pericardial effusion or adenopathy within the chest. No chest wall lesions or axillary adenopathy. Unremarkable left thyroid. Right thyroid not seen. Limited upper abdomen: Unremarkable Other: No acute osseous findings. Impression: Tiny bilateral pulmonary nodules. Mild emphysema. Lung rads category 2 Category 1: Normal; continue annual screening Category 2: Benign appearance or behavior, continue annual screening Category 3: Probably benign, [address] recommended Category 4A: Suspicious, [address] recommended; may consider PET/CT Category 4B: Suspicious, Additional diagnostics and/or tissue sampling recommended Category 4X: Suspicious, Additional diagnostics and/or tissue sampling recommended Category 0: Recalls (incomplete screen due to Incomplete coverage, Noise, Respiratory motion, Expiration, Obscured by acute abnormality) This document has been electronically signed by: Gisela Vigil MD on 12/10/2024 08:51:40
== END 2024-12-09 11:33 | disposition home or self-care (01) ==
LOC: HO.CT 11:32
PROVIDERS: PCP Nurse Practitioner Family; Visit Provider Physician Assistant Medical
DX: Z12.2 Encounter for screening for malignant neoplasm of respiratory organs (principal); F17.210 Nicotine dependence, cigarettes, uncomplicated
CPT/HCPCS: 71271; G0296

== ENCOUNTER → 2024-12-09 11:33 | Outpatient (BNV) | payer MEDICARE, SELFPAY | PROVIDERS: PCP Nurse Practitioner Family; Visit Provider Radiology Diagnostic Radiology | DX: F17.210 Nicotine dependence, cigarettes, uncomplicated (principal) | CPT/HCPCS: 71271 ==

== ENCOUNTER 2024-12-26 08:33 | Outpatient (REF) | payer MEDICARE, SELFPAY ==
--- NOTE | ~2024-12-26 | XR_ITS ---
EXAMINATION: XR PELVIS CLINICAL INFORMATION: M25.559 - Pain in unspecified hip COMPARISON: None available. TECHNIQUE: AP view of the pelvis. FINDINGS: Normal bone mineralization. No fracture, dislocation, or suspicious bone lesion. Moderate degenerative arthritis in the right hip, with near complete superior joint space narrowing. There is subchondral sclerosis of the acetabulum with marginal osteophytic spurs. There are tiny subcapital spurs. There is chondrocalcinosis. Mild to moderate arthritis in the left hip joint with chondrocalcinosis and mild subchondral sclerosis with mild joint space narrowing. Degenerative changes of the SI joints and lower lumbar spine. The sacrum appears intact. There are mild vascular calcifications in the soft tissues. XR/XR pelvis 1-2V IMPRESSION: 1. Moderate right and gmhn-rg-cahfdeqs left hip joint arthropathy. 2. Chondrocalcinosis, may suggest CPPD. Electronically signed by: Aníbal Henley MD 12/26/2024 11:03 AM EDT
--- OUTSIDE RECORDS SUMMARY | 2024-12-26 08:42 | XMS_ITS | Data Portability ---
Author Organization [facility], [facility], [facility]IN 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 Name Role Phone EVERARDO VAZQUEZ Tubular Riveter EMELIA ELIZABETH Primary Care Provider [phone] DEANNA JIMENEZ Orthopedist PARVEEN DELVALLE, DMITRIY Senior Telecommunications Consultant [phone] Assessment Encounter Date Assessment Date Assessment LastModified [...] or plasma 2023 [facility], [address] [place] [address], [address], 12:31:07 T4, free, serum 2023 024 [facility], [address] [place] [address], 634[address], 11:52:26 T3, total, serum 2023 [facility], [address] [place] [address], 065[address], 11:09:06 FSH (follicle-s timulating hormone), serum 2023 024 [facility], [address] [place] [address], 15892, 11:09:07 igf-1 (insulin-li ke growth factor), serum 2023 024 [facility], [address] [place] [address], 04568, 14:43:26 cortisol, am, serum 2023 024 [facility], [address] [place] [address], 83353, 14:43:25 acth, plasma 2023 024 [facility], [address] [place] [address], 13138, 14:43:27 prolactin, serum 2023 024 [facility], [address] [place] [address], [address], 4 14:43:27 lipid panel, serum 2023 024 [facility], [address] [place] [address], [address], 4 11:46:37 CBC 2023 024 [facility], [address] [place] [address], 30943, 4 15:23:54 TSH, serum or plasma 2023 024 [facility], [address] [place] [address], 9[address], 4 15:23:40 BMP, serum or plasma 2023 024 [facility], [address] [place] [address], [address], 4 11:46:37 urinalysis, dipstick 2022 023 [facility], [address] [place] [address], [address], 3 13:57:42 Referral None recorded. Procedures None recorded. Surgeries None recorded. Imaging MAMMO, screening, tomosynthes is, bilateral 2022 023 [facility] [address], [place], [address], 3 16:06:19 LDCT, chest, for lung cancer screening - Please enroll this patient in the LDCT Lung Cancer Screening Program (for ordering, follow up and shared decision making)h as hx known nodules. Dr. Leavitt 09/04/212022 023 [facility], [address] [place], [address], 3 17:26:04 Medication Orders albuterol sulfate HFA 90 mcg/actuati on aerosol inhaler 2023 024 MICHELE [facility], [address] [place] [address], [address], [place], [place], [id number], 4 14:18:20 clotrimazol e 10 mg darian 2022 023 [email or web address] [facility], [address] [place], [address], [place], [place], [id number], 14:14:41 Patient TargetsNo targets recorded. Patient Instructions Encounter Date Encounter Id Patient Instructions Last Modified By Organization Details Last Modified Time 01/01/2023 [id number] high cholesterol lifestyle changes Not available 01/01/2023 14:40:56 advance directives: care instructions Not available 01/01/2023 14:40:57 preventing falls: care instructions Not available 01/01/2023 14:40:57 hearing loss: care instructions Not available 01/01/2023 14:40:56 well visit, over 65: care instructions Not available 01/01/2023 14:40:57 05/05/2024 [id number] - Get labs done before 8AM. [email or web address] [...] My Health To Do List {{go to [employer] [email or web address] or call * sign up for maru text 2 quit or other stop smoking maru contact Team Kral[employer] Mixed Martial artsee.gov}} {{go to [employer] or call s ign up for maru text 2 quit or other stop smoking maru contact smokeCaptora.gov*}} {{go to [employer] or call s ign up for maru text 2 quit or other stop smoking maru contact PlanZap.gov}} Counseling done {{Patient not ready to quit [...] {{adding exercise regular meals stress management impro SovTechg sleep therapist identifying sponsor}} {{adding exercise regular meals stress management impro Hoods sleep therapist identifying sponsor}} My [employer] To Do List {{go to [employer] or call s ign up for maru text 2 quit or other stop smoking maru contact smokeCaptora.gov}} {{go to [employer] or call s ign up for maru text 2 quit or other stop smoking maru contact PlanZap.gov}} {{go to [employer] or call s ign up for maru text 2 quit or other stop smoking maru contact smokeTurboHeadsee.gov}} Not available 05/03/2024 09:03:04 06/23/2024 [id number] [email or web address] Not available 06/26/2024 18:30:45 6 months/ [...] My Health To Do List {{go to [employer] or call * sign up for maru text 2 quit or other stop smoking maru contact smokeCaptora.gov}} {{go to [employer]ZeroCater or call s ign up for maru text 2 quit or other stop smoking maru contact PlanZap.gov*}} {{go to [employer]Cater or call s ign up for maru text 2 quit or other stop smoking maru contact PlanZap.gov}} Counseling done {{Patient not ready to quit [...] My Health To Do List {{go to [employer] or call s ign up for maru text 2 quit or other stop smoking maru contact smokefrEmbarke.gov}} {{go to [employer] or call s ign up for maru text 2 quit or other stop smoking maru contact smokeCaptora.gov}} {{go to [employer] or call s ign up for maru text 2 quit or other stop smoking maru contact smokeCaptora.gov}} [email or web address] Not available 06/23/2024 15:00:31 Reason for [...] furth er confi rmati on Not Available [address], [address], 12/25/2022 16:23:00 12/26/19 23 12/25/2022 HGB A1C estimated average glucose 102.5 mg/dL Not Available [address], [address], 12/25/2022 16:23:00 12/26/19 23 12/25/2022 VITAM IN [...] er than 30 ng/mL . Not Available [address], [address], 12/25/2022 16:26:10 12/26/1912/25/2022 TSH TSH 1.79 uIU/m L 0.50-6 .00 The Ameri can Colle ge of Endoc rinol ogy and Ameri can Thyro id Assoc iatio n recom mend goal TSH value s betwe en 0.4-4 .0 mIU/m L. Not Available [address], [address], 12/25/2022 16:26:15 12/26/19 23 12/25/2022 BASIC METAB OLIC PANEL glucose 120 mg/dL 70-100 high Not Available [address], [address], 12/25/2022 16:33:09 12/26/19 23 12/25/2022 BASIC METAB OLIC PANEL BUN 7 mg/dL 7-18 Not Available [address], [address], 12/25/2022 16:33:09 12/26/19 23 12/25/2022 BASIC METAB OLIC PANEL creatinine 0.8 mg/dL 0.8-1. 3 Not Available [address], [address], 12/25/2022 16:33:09 12/26/19 23 12/25/2022 BASIC METAB OLIC PANEL B/C 8.8 ratio Not Available [address], [address], 12/25/2022 16:33:09 12/26/19 23 12/25/2022 BASIC METAB [...] be used in pregn junaid. Not Available [address], [address], 12/25/2022 16:33:09 12/26/19 23 12/25/2022 BASIC METAB OLIC PANEL sodium 141 mmol/ L 136-14 5 Not Available [address], 15[address], 12/25/2022 16:33:09 12/26/19 23 12/25/2022 BASIC METAB OLIC PANEL potassium 3.6 mmol/ L 3.5-5. 1 Not Available [address], [address], 12/25/2022 16:33:09 12/26/19 23 12/25/2022 BASIC METAB OLIC PANEL chloride 98 mmol/ L 96-107 Not Available [address], [address], 12/25/2022 16:33:09 12/26/19 23 12/25/2022 BASIC METAB OLIC PANEL anion gap 11.7 5.0-15 .0 Not Available [address], [address]78, 12/25/2022 16:33:09 12/26/19 23 12/25/2022 BASIC METAB OLIC PANEL CO2 31 mmol/ L 21-32 Not Available [address], 6[address], 12/25/2022 16:33:09 12/26/19 23 12/25/2022 BASIC METAB OLIC PANEL calcium 9.4 mg/dL 8.5-10 .3 Not Available [address], [address], 12/25/2022 16:33:09 12/26/19 23 12/25/2022 LIPID PANEL cholesterol 178 mg/dL <200 mg/dl Rola able 200-2 39 mg/dl Borde rline High >240 mg/dl High Not Available [address], [address], 12/25/2022 16:33:11 12/26/19 23 12/25/2022 LIPID PANEL triglyceride s 76 mg/dL <150 mg/dL Mercedes l 150-1 99 mg/dL Borde rline High 200-4 99 mg/dL High >500 mg/dL Very High Not Available [address] [place], [address], 12/25/2022 16:33:11 12/26/19 23 12/25/2022 LIPID PANEL direct HDL 80 mg/dL <40 mg/dl - Major Risk for CHD >60 mg/dl - Negat wesley Risk for CHD Not Available [address], [address], 12/25/2022 16:33:11 12/26/19 23 12/25/2022 DIREC T [...] r is not braxton tavera. Not Available [address], [address], 12/25/2022 16:33:14 01/02/2001/01/2023 POC UA glu UA NEGATI VE Not Available [facility] [address] [place] [address], [address], 01/01/2023 13:57:42 01/02/20 23 01/01/2023 POC UA clarity UA CLEAR Not Available [facility] [address] [place] [address], [address], 01/01/2023 13:57:42 01/02/20 23 01/01/2023 POC UA uro UA 0.2000 Not Available [facility] [address] [place] [address], [address], 01/01/2023 13:57:42 01/02/20 23 01/01/2023 POC UA ket UA NEGATI VE Not Available [facility] [address] [place] [address], 80734, 01/01/2023 13:57:42 01/02/20 23 01/01/2023 POC UA pro UA NEGATI VE Not Available [facility] [address] [place] [address], [address], 01/01/2023 13:57:42 01/02/20 23 01/01/2023 POC UA nit UA NEGATI VE Not Available [facility] [address] [place] [address], 71356, 01/01/2023 13:57:42 01/02/20 23 01/01/2023 POC UA rebekah UA NEGATI VE Not Available [facility] [address] [place] [address], 44409, 01/01/2023 13:57:42 01/02/20 23 01/01/2023 POC UA pH UA 7.0000 Not Available [facility] [address] [place] [address], 40011, 01/01/2023 13:57:42 01/02/20 23 01/01/2023 POC UA SG UA 1.0200 Not Available [facility] [address] [place] [address], 50083, 01/01/2023 13:57:42 01/02/20 23 01/01/2023 POC UA color UA YELLOW Not Available [facility] [address] [place] [address], 74598, 01/01/2023 13:57:42 01/02/20 23 01/01/2023 POC UA blo UA NEGATI VE Not Available [facility] [address] [place] [address], 21099, 01/01/2023 13:57:42 01/02/20 23 01/01/2023 POC UA bren UA NEGATI VE Not Available [facility] [address] [place] [address], 00990, 01/01/2023 13:57:42 02/05/20 24 02/05/2024 HGB A1C [...] furth er confi rmati on Not Available [address], [address], 02/05/2024 15:16:31 02/05/20 24 02/05/2024 HGB A1C estimated average glucose 105.4 mg/dL Not Available [address], 8[address], 02/05/2024 15:16:31 02/05/20 24 02/05/2024 CBC WBC 7.83 K/? ? ?L 3.98-1 0.04 Not Available [address], [address], 02/05/2024 15:23:54 02/05/20 24 02/05/2024 CBC RBC 4.36 M/? ? ?L 3.93-5 .22 Not Available [address], [address], 02/05/2024 15:23:54 02/05/20 24 02/05/2024 CBC HGB 14.3 g/dL 11.2-1 5.7 Not Available [address], 8[address], 02/05/2024 15:23:54 02/05/20 24 02/05/2024 CBC HCT 41.8 % 34.1-4 4.9 Not Available [address], 0[address], 02/05/2024 15:23:54 02/05/20 24 02/05/2024 CBC MCV 95.9 fL 79.4-9 4.8 high Not Available [address], [address], 02/05/2024 15:23:54 02/05/20 24 02/05/2024 CBC MCH 32.8 pg 25.6-3 2.2 high Not Available [address], [address], 02/05/2024 15:23:54 02/05/20 24 02/05/2024 CBC MCHC 34.2 g/dL 32.2-3 5.5 Not Available [address], [address], 02/05/2024 15:23:54 02/05/20 24 02/05/2024 CBC plt 225 K/? ? ?L 182-36 9 Not Available [address], 6[address], 02/05/2024 15:23:54 02/05/20 24 02/05/2024 CBC MPV 10.8 fL 9.4-12 .3 Not Available [address], [address], 02/05/2024 15:23:54 02/05/20 24 02/05/2024 CBC neut% 71.8 % 34.0-7 1.1 high Not Available [address], [address], 02/05/2024 15:23:54 02/05/20 24 02/05/2024 CBC neut# 5.62 1.56-6 .13 Not Available [address], 84[address], 02/05/2024 15:23:54 02/05/20 24 02/05/2024 CBC lymph % 20.9 % 19.3-5 1.7 Not Available [address], 164[address], 02/05/2024 15:23:54 02/05/20 24 02/05/2024 CBC lymph # 1.64 K/? ? ?L 1.18-3 .74 Not Available [address], 7[address], 02/05/2024 15:23:54 02/05/20 24 02/05/2024 CBC mono% 5.6 % 4.7-12 .5 Not Available [address], [address]54, 02/05/2024 15:23:54 02/05/20 24 02/05/2024 CBC mono# 0.44 0.24-0 .56 Not Available [address], 71767, 02/05/2024 15:23:54 02/05/20 24 02/05/2024 CBC eo% 0.8 % 0.7-5. 8 Not Available [address], [address]36, 02/05/2024 15:23:54 02/05/20 24 02/05/2024 CBC eo# 0.06 0.04-0 .36 Not Available [address], [address]75, 02/05/2024 15:23:54 02/05/20 24 02/05/2024 CBC baso% 0.6 % 0.1-1. 2 Not Available [address], [address], 02/05/2024 15:23:54 02/05/20 24 02/05/2024 CBC baso# 0.05 0.00-0 .08 Not Available [address], [address], 02/05/2024 15:23:54 02/05/20 24 02/05/2024 CBC RDW-CV 12.3 % 11.7-1 4.4 Not Available [address], [address], 02/05/2024 15:23:54 02/05/20 24 02/05/2024 CBC Ig% 0.300 % 0.000- 1.500 Ig % >0.5 Indic ates possi ble Left Shift Not Available [address], [address], 02/05/2024 15:23:54 02/05/20 24 02/05/2024 CBC Ig# 0.020 0.000- 0.093 Not Available [address], [address], 02/05/2024 15:23:54 02/05/20 24 02/05/2024 CBC NRBC% 0.0 % 0.0-0. 2 Not Available [address], 7[address], 02/05/2024 15:23:54 02/05/20 24 02/05/2024 CBC NRBC# 0.000 0.000- 0.012 Not Available [address], [address], 02/05/2024 15:23:54 02/05/20 24 02/08/2024 BASIC METAB OLIC PANEL glucose 113 mg/dL 70-100 high Not Available [address], [address], 02/08/2024 11:46:36 02/05/20 24 02/08/2024 BASIC METAB OLIC PANEL BUN 16 mg/dL 7-18 Not Available [address], [address], 02/08/2024 11:46:36 02/05/20 24 02/08/2024 BASIC METAB OLIC PANEL creatinine 0.7 mg/dL 0.8-1. 3 low Not Available [address], [address], 02/08/2024 11:46:36 02/05/20 24 02/08/2024 BASIC METAB OLIC PANEL B/C 22.9 ratio Not Available [address], [address], 02/08/2024 11:46:36 02/05/20 24 02/08/2024 BASIC METAB [...] be used in pregn junaid. Not Available [address], [address], 02/08/2024 11:46:36 02/05/20 24 02/08/2024 BASIC METAB OLIC PANEL sodium 142 mmol/ L 136-14 5 Not Available [address], [address], 02/08/2024 11:46:36 02/05/20 24 02/08/2024 BASIC METAB OLIC PANEL potassium 4.5 mmol/ L 3.5-5. 1 Not Available [address], [address], 02/08/2024 11:46:36 02/05/20 24 02/08/2024 BASIC METAB OLIC PANEL chloride 102 mmol/ L 96-107 Not Available [address], [address], 02/08/2024 11:46:36 02/05/20 24 02/08/2024 BASIC METAB OLIC PANEL anion gap 11.9 5.0-15 .0 Not Available [address], [address], 02/08/2024 11:46:36 02/05/20 24 02/08/2024 BASIC METAB OLIC PANEL CO2 28 mmol/ L 21-32 Not Available [address], [address], 02/08/2024 11:46:36 02/05/20 24 02/08/2024 BASIC METAB OLIC PANEL calcium 9.5 mg/dL 8.5-10 .3 Not Available [address], [address], 02/08/2024 11:46:36 02/05/20 24 02/08/2024 LIPID PANEL cholesterol 204 mg/dL <200 mg/dl Rola able 200-2 39 mg/dl Borde rline High >240 mg/dl High Not Available [address], [address], 02/08/2024 11:46:37 02/05/20 24 02/08/2024 LIPID PANEL triglyceride s 63 mg/dL <150 mg/dL Mercedes l 150-1 99 mg/dL Borde rline High 200-4 99 mg/dL High >500 mg/dL Very High Not Available [address], [address], 02/08/2024 11:46:37 02/05/20 24 02/08/2024 LIPID PANEL direct HDL 72 mg/dL <40 mg/dl - Major Risk for CHD >60 mg/dl - Negat wesley Risk for CHD Not Available [address] [place], [address], 02/08/2024 11:46:37 02/05/20 24 02/08/2024 DIREC T [...] r is not braxton liang. Not Available [address], [address], 02/08/2024 11:46:38 02/05/20 24 02/08/2024 TSH TSH 1.32 uIU/m L 0.50-6 .00 The Steffi can Colle ge of Endoc rinol ogy and Steffi can Thyro id Assoc iatio n recom mend goal TSH value s betwe en 0.4-4 .0 mIU/m L. Not Available [address], [address], 02/08/2024 15:23:40 02/29/20 24 03/01/2024 FREE T4 free T4 0.71 NG/dL 0.75-1 .54 low Not Available [address], [address], 03/01/2024 10:48:50 02/29/20 24 03/01/2024 VITAM IN [...] er than 30 ng/mL . Not Available [address], [address], 03/01/2024 10:55:50 02/29/20 24 03/01/2024 TSH TSH 2.30 uIU/m L 0.50-6 .00 The Ameri can Colle ge of Endoc rinol ogy and Ameri can Thyro id Assoc iatio n recom mend goal TSH value s betwe en 0.4-4 .0 mIU/m L. Not Available [address], [address], 03/01/2024 11:03:38 05/31/20 24 05/31/2024 FREE T4 free T4 0.80 NG/dL 0.75-1 .54 Not Available [address], [address], 05/31/2024 11:52:26 05/31/20 24 05/31/2024 TSH TSH 4.12 uIU/m L 0.50-6 .00 The Ameri can Colle ge of Endoc rinol ogy and Ameri can Thyro id Assoc iatio n recom mend goal TSH value s betwe en 0.4-4 .0 mIU/m L. Not Available [address], [address], 05/31/2024 12:31:07 05/31/20 24 06/01/2024 TOTAL T3 total T3 1.28 NG/mL 0.70-1 .70 Not Available [address], [address], 06/01/2024 11:09:06 05/31/20 24 06/01/2024 FSH FSH 70.6 mIU/m L Male: 1.0 - 42.5 mIU/m L Femal e Ovula ting: Folli cular Phase : 2.7 - 15.4 mIU/m L Peak: 3.9 - 22.0 mIU/m L Lutea l Phase : 1.0 - 14.4 mIU/m L Postm enopa usal: 25.0 - 160.0 mIU/m L Not Available [address], [address], 06/01/2024 11:09:07 05/31/20 24 06/01/2024 LIPID PANEL cholesterol 219 mg/dL <200 mg/dl Rola able 200-2 39 mg/dl Borde rline High >240 mg/dl High Not Available [address], [address], 06/01/2024 14:38:40 05/31/20 24 06/01/2024 LIPID PANEL triglyceride s 150 mg/dL <150 mg/dL Mercedes l 150-1 99 mg/dL Borde rline High 200-4 99 mg/dL High >500 mg/dL Very High Not Available [address], [address], 06/01/2024 14:38:40 05/31/2006/01/2024 LIPID PANEL direct HDL 70 mg/dL <40 mg/dl - Major Risk for CHD >60 mg/dl - Negat wesley Risk for CHD Not Available [address], [address], 06/01/2024 14:38:40 05/31/2006/01/2024 LDL - CALCU LATED [...] r is not yamilkeyur tavera. Not Available [address], [address], 06/01/2024 14:38:42 05/31/20 24 06/01/2024 BASIC METAB OLIC PANEL glucose 104 mg/dL 70-100 high Not Available [address], [address], 06/01/2024 15:00:52 05/31/2006/01/2024 BASIC METAB OLIC PANEL BUN 14 mg/dL 7-18 Not Available [address], [address], 06/01/2024 15:00:52 05/31/20 24 06/01/2024 BASIC METAB OLIC PANEL creatinine 0.8 mg/dL 0.8-1. 3 Not Available [address], [address], 06/01/2024 15:00:52 05/31/20 24 06/01/2024 BASIC METAB OLIC PANEL B/C 17.5 ratio Not Available [address], [address], 06/01/2024 15:00:52 05/31/20 24 06/01/2024 BASIC METAB [...] be used in pregn junaid. Not Available [address], [address], 06/01/2024 15:00:52 05/31/2006/01/2024 BASIC METAB OLIC PANEL sodium 144 mmol/ L 136-14 5 Not Available [address], [address], 06/01/2024 15:00:52 05/31/2006/01/2024 BASIC METAB OLIC PANEL potassium 4.1 mmol/ L 3.5-5. 1 Not Available [address], [address], 06/01/2024 15:00:52 05/31/2006/01/2024 BASIC METAB OLIC PANEL chloride 104 mmol/ L 96-107 Not Available [address], [address], 06/01/2024 15:00:52 05/31/2006/01/2024 BASIC METAB OLIC PANEL anion gap 9.8 5.0-15 .0 Not Available [address], [address], 06/01/2024 15:00:52 05/31/2006/01/2024 BASIC METAB OLIC PANEL CO2 30 mmol/ L 21-32 Not Available [address], [address], 06/01/2024 15:00:52 05/31/2006/01/2024 BASIC METAB OLIC PANEL calcium 9.7 mg/dL 8.5-10 .3 Not Available [address], [address], 06/01/2024 15:00:52 05/31/2006/07/2024 IGF 1, LC/MS igf 1, lc/MS 129 NG/mL 34-245 Not Available [facility] [address], [address], 06/07/2024 14:43:26 05/31/20 24 06/07/2024 IGF 1, LC/MS Z score (female) 0.4 SD -2.0 - +2.0 This test was devel humza and its arnold tical perfo rmanc e kamari cteri stics have been deter mined by [facility]. It has not been clear ed or appro ariel by FDA. This assay has been valid ated pursu ant to the CLIA regul ation s and is used for clini laney purpo ses. Not Available [facility] [address], [address], 06/07/2024 14:43:26 05/31/2006/07/2024 ACTH, PLASM A acth, plasma 18 pg/mL 6-50 Refer ence range appli es only to speci mens colle cted betwe en 7am-1 0am. Not Available [facility] [address], [address], 06/07/2024 14:43:26 05/31/20 24 06/07/2024 PROLA CTIN prolactin 9.4 NG/mL normal Refer ence Range Femal es Non-p regna nt 3.0-3 0.0 Pregn ant 10.0- 209.0 Postm enopa usal 2.0-2 0.0 Not Available [facility] [address], [address], 06/07/2024 14:43:27 04/24/20 23 04/24/2023 LDCT, chest , for lung cance r scree luisito No observ ation record ed. [facility] [address] [facility], [place], [address], 04/28/2023 17:05:43 04/27/20 23 04/27/2023 MAMMO , [...] PM Reji francis Physic frank: Jai mckee [facility] [address], [place], [address], 04/27/2023 16:30:52 Result Notes None recorded. Problems Name Problem SNOMED Code Status Onset Date Resolution Date Notes Provider Name and Address Organization Details Recorded Time Pain of joint 61168121 Completed 01/01/2023 CATHERINE Garza [address] [place] [address], [address] , [facility] 3 14:47:10 Backache 737847639 Completed 11/15/2014 Yeny Elizabeth NP [address] [place] [address], [address] , [facility] 5 20:40:22 Sinusiti s 97518434 Completed 11/15/2014 Yeny Elizabeth NP [address] [place] [address], [address] , [facility] 5 20:43:58 Sleep apnea 52547363 Active Not Available [facility] 4 00:24:30 Backache 181226771 Active Not Available [facility] 4 00:24:29 Impaired fasting glycemia 339825985 Active 2017 Not Available [facility] 4 00:24:29 Vitamin D deficien cy 22118832 Active 2020 Not Available [facility] 4 00:24:29 Multiple nodules of lung 105819155 Active 2020 non-canc erous. followed by Dr. Julio lawrence. 09/04/21 note - surveill ance is complete . Not Available [facility] 4 00:24:30 Chronic obstruct wesley pulmonar y disease 84991901 Active 2020 PFT 1 Not Available [facility] 4 00:24:29 Osteoart hritis of right hip joint 05930077531 9107 Active 2021 follows w/ [facility]. Not Available [facility] 4 00:24:29 History of subtotal thyroide ctomy 586340446 Active 2021 Not Available [facility] 4 00:24:30 Decrease d body mass index 4759857 Completed 202101/01/2023 CATHERINE Garza [address] [place] [address], [address] , [facility] 3 13:54:15 Bone density finding 766972105 Active 2022 Not Available [facility] 4 00:24:29 Major depressi on, melancho lic type 988816937 Active 2022 Not Available [facility] 4 00:24:29 History of partial resectio n of colon 439656038 Active 2022 Not Available [facility] 4 00:24:30 Mixed hyperlip idemia 256912692 Active Not Available [facility] 4 00:24:29 Head and neck swelling 902417901 Completed 200206/29/2013 Not Available [facility] 3 02:04:11 Single major depressi ve episode, mild Completed 200611/15/2014 Yeny Elizabeth NP [address] [place] [address], [address] , [facility] 5 20:42:37 Benign neoplasm of skin of trunk, excludin g scrotum Completed 200506/29/2013 Not Available [facility] 3 02:04:05 [facility] hyperten camryn 27842636 Active Not Available [facility] 4 00:24:30 Chronic nonalcoh olic liver disease 10764045 Active Not Available [facility] 4 00:24:30 Gastroes ophageal reflux disease 975724392 Active Not Available [facility] 4 00:24:29 Non-toxi c uninodul ar goiter 152926167 Completed 11/15/2014 Yeny Elizabeth NP [address] [place] [address], [id number] , [facility] 5 20:42:37 Anxiety state 639062735 Completed 11/15/2014 Yeny Elizabeth NP [address] [place] [address], [phone] , [facility] 5 20:42:37 Acute pharyngi tis 374610451 Completed 06/29/2013 Not Available [facility] 3 02:01:17 Allergic rhinitis 11720926 Active Not Available [facility] 4 00:24:30 Epidermo id cyst of skin 327929341 Completed 200506/29/2013 Not Available [facility] 3 02:02:53 Elevated blood-pr essure reading without diagnosi s of hyperten camryn [id number] Completed 200211/15/2014 Yeny Elizabeth NP [address] [place] [address], [address] , [facility] 5 20:40:22 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 Completed 11/15/2014 Yeny Elizabeth NP [address] [place] [address], [address] , [facility] 5 20:40:22 Organic sleep disorder 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 Completed 11/15/2014 Yeny Elizabeth NP [address] [place] [address], [address] , [facility] 5 20:40:22 Acute bronchit is 44791582 Completed 06/29/2013 Not Available [facility] 3 02:01:36 Malaise and fatigue 883605866 Completed 06/29/2013 Not Available [facility] 3 02:00:18 Blood in urine 74899445 Completed 200511/15/2014 Yeny Elizabeth NP [address] [place] [address], [address] , [facility] 5 20:43:58 Carpal tunnel syndrome 10908523 Active 2003 surgery 2010 Not Available [facility] 4 00:24:30 Kidney stone 04180215 Completed 200701/01/2023 CATHERINE Garza [address] [place], [address] , [facility] 3 14:47:07 Ureteric stone 32662966 Completed 200511/15/2014 Yeny Elizabeth NP [address] [place] [address], [address] , [facility] 5 20:43:58 Right upper quadrant pain 962834482 Completed 06/29/2013 Not Available [facility] 3 02:03:18 Sleep disorder 71450201 Completed 11/15/2014 Yeny Elizabeth NP [address] [place] [address], [address] , [facility] 5 20:40:22 Orthosta tic hypotens ion 51897105 Completed 11/15/2014 Yeny Elizabeth NP [address] [place] [address], [address] , [facility] 5 20:40:22 Lymphade nopathy 32160152 Completed 200206/29/2013 Not Available [facility] 3 02:03:13 Tobacco user 442994093 Completed 200211/15/2014 Yeny Elizabeth NP [address] [place] [address], [address] , [facility] 5 20:42:37 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 200511/15/2014 Yeny Elizabeth NP [address] [place] [address], [address] , [facility] 5 20:43:58 Sprain of ankle 35537626 Completed 200406/29/2013 Not Available [facility] 3 02:02:51 Syncope and collapse 369899807 Completed 11/15/2014 Yeny Elizabeth NP [address] [place] [address], [address] , [facility] 5 20:40:22 Joint pain in ankle and foot Completed 200406/29/2013 Not Available [facility] 3 02:01:26 Acute sinusiti s 32416483 Completed 06/29/2013 Not Available [facility] 3 02:02:20 Finding by method 085781822 Completed 200206/29/2013 Not Available [facility] 3 02:01:56 Breast lump 93989663 Completed 200211/15/2014 Yeny Elizabeth NP [address] [place] [address], [address] , [facility] 5 20:40:22 Common cold 55979164 Completed 06/29/2013 Not Available [facility] 3 02:00:28 Mammogra phy abnormal 726610866 Completed 200611/15/2014 Yeny Elizabeth NP [address] [place] [address], [address] , [facility] 5 20:45:31 Idiopath ic peripher al neuropat hy 30275468 Completed 200711/15/2014 Yeny Elizabeth NP [address] [place] [address], [address] , [facility] 5 20:42:37 On examinat ion - a rash Completed 06/29/2013 Not Available [facility] 3 02:00:49 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 Not Available [facility] 4 00:24:30 Dysphagi a 22771670 Completed 11/15/2014 Yeny Elizabeth NP [address] [place] [address], [address] , [facility] 5 20:40:22 Abnormal cervical Papanico laou smear 646657284 Completed 200711/15/2014 Yeny Elizabeth NP [address] [place] [address], [address] , [facility] 5 20:55:49 Non-orga evelyn sleep disorder 190171597 Completed 200511/15/2014 Yeny Elizabeth NP [address] [place] [address], [address] , [facility] 5 20:40:22 Open wound of scalp 220499766 Completed 06/29/2013 Not Available [facility] 3 02:04:18 Low back pain 865601848 Completed 01/01/2023 CATHERINE Garza [address] [place] [address], [address] , [facility] 3 14:47:05 Hypothyr oidism 35613005 Completed 200211/15/2014 Yeny Elizabeth NP [address] [place] [address], [address] , [facility] 5 20:42:37 Mononeur itis 25738250 Completed 200701/01/2023 CATHERINE Garza [address] [place] [address], [address] , [facility] 3 14:47:13 Abnormal findings on diagnost ic imaging of skull and head 186555388 Active Not Available [facility] 4 00:24:29 Pain in limb 87258856 Completed 200406/29/2013 Not Available [facility] 3 02:00:56 Heartbur n 63526501 Completed 06/29/2013 Not Available [facility] 3 02:03:55 Difficul ty speaking Completed 11/15/2014 Yeny Elizabeth NP [address] [place] [address], [address] , [facility] 5 20:40:22 Notes:Some problems listed i n Documents: #[id number], #[id number], #[id number], #[id number], #[id number], #[id number] could not be added to this patient's chart. Please review these documents and add these problems to the patient's chart manually as needed. Problem Notes None recorded. Procedures Surgical History Date Name Laterality Status Provider Name and Address Organization Details Recorded Time 024 Smoking cessation counseling completed Rosa Tran LPN [facility] 06/21/2024 11:57:13 024 Smoking cessation counseling completed Rosa Tran LPN [facility] 05/03/2024 09:03:04 023 Smoking cessation counseling cancelled Rayna Stapleton MA [facility] 06/29/2023 09:58:39 023 Smoking cessation counseling cancelled Rosa Tran LPN [facility] 03/31/2023 14:40:47 023 Smoking cessation counseling completed CATHERINE Garza [address] [place] [address], [address], [facility] 01/01/2023 14:12:24 023 Medicare Wellness Visit completed Gisselle Cid MA [facility] 01/01/2023 13:36:59 022 Smoking cessation counseling completed Gisselle Cid, [facility] 05/16/2022 14:20:29 022 Smoking cessation counseling completed Everardo Vazquez MD [address] [place] [address], [address], [facility] 04/03/2022 10:41:44 022 Medicare Wellness Visit completed Xiomy Gooden [facility] 12/23/2021 13:50:31 022 Alcohol use screening completed Xiomy Gooden [facility] 12/23/2021 13:50:31 022 Cardiovascular disease risk reduction counseling completed Xiomy Gooden [facility] 12/23/2021 13:50:31 021 Smoking cessation counseling completed Loreta Gloria RN [facility] 07/18/2021 11:27:55 021 Smoking cessation counseling completed Hailey Fleming [facility] 06/05/2021 10:57:46 021 partial lobectomy of thyroid completed Yeny Elizabeth NP [address] [place], [address], [facility] 06/02/2021 12:35:36 021 Biopsy of thyroid completed Dixie Underwood LPN [facility] 01/03/2021 14:35:31 021 Medicare Wellness Visit completed Terrell Thompson [facility] 12/06/2020 08:49:12 021 COPD Screening completed Terrell Thompson [facility] 12/06/2020 11:33:22 021 prevention-cardio vascular risk reduction counseling completed Terrell Thompson [facility] 12/06/2020 08:49:12 021 prevention-annual alcohol misuse screening completed Terrell Thompson [facility] 12/06/2020 08:49:12 021 biopsy of thyroid completed Dixie Underwood LPN [facility] 12/20/2020 15:57:05 021 Medicare Wellness Visit completed Terrell Thompson [facility] 08/21/2020 08:16:38 021 prevention-cardio vascular risk reduction counseling completed Terrell Thompson [facility] 08/21/2020 08:16:38 021 prevention-annual alcohol misuse screening completed Terrell Thompson [facility] 08/21/2020 08:16:38 019 Nebulizer Tx completed Yazan Lozoyatega [facility] 09/14/2018 18:02:56 014 Other (specify) completed Yeny Elizabeth NP [address] [place], [address], [facility] 11/15/2014 20:37:49 012 Suture/staple Removal completed Yeny Elizabeth NP [address] [place], [address], [facility] 09/19/2011 17:19:53 011 Carpal Tunnel Surgery completed Yeny Elizabeth NP [address] [place], [address], [facility] 09/12/2011 12:33:44 004 completed Not Available [facility] 06:05:52 Back Surgery completed Yeny alexandre NP [address] [place], [address], [facility] 04/10/2015 11:56:53 repair of tendon completed Dixie Underwood LPN [facility] 12/20/2020 15:57:18 Imaging Results Imaging Date Name Status LastModified by Organiz [facility] Details LastModified Time 04/24/2023 LDCT, chest, for lung cancer screening completed [facility] [address] [place], [address], 04/28/2023 17:05:43 04/27/2023 MAMMO, screening, tomosynthesis, bilateral completed rafi [facility] (Imaging) [address], [place], [address], 04/27/2023 16:30:52 Procedure Notes None recorded. Medical Equipment None Reported. Allergies Allergen ID Allergen Name Allergen Category Reaction Reaction Severity Criticality Documentation Date Start Date Code Code System Note Provider Name and Address Organization Details Recorded Time [id number] metoprolo l Not available Not available Not available Not available 01/24/2013 6918 RxNorm marito cardi a. Yeny Elizabeth NP [address] [place], [address], [facility] 3 11:47:43 551161 spironola ctone medicatio n dizziness Not available Not available 01/25/2016 9997 RxNorm [facility] Elizabeth [facility] [address] [facility] [place] [address], [facility] 6 16:15:07 01080 penicilli n G Not available itching Not available Not available 07/30/2009 7980 RxNorm insid e of skin Not Available [facility] 1 06:05:20 089237 bupropion Not available other Not available Not available 01/26/2017 15372 RxNorm nonst op cryin g, Yeny Elizaebth NP [address] [facility] [place], [address], [facility] 7 16:46:02 05334 hydrochlo rothiazid e medicatio n other severe Not available 10/25/2011 5487 RxNorm ortho stasi s and synco pe Yeny Elizabeth NP [address] [place], [address], [facility] 2 18:26:45 94481 amlodipin e medicatio n other severe Not available 10/25/2011 34104 RxNorm ortho stasi s and synco pe Yeny Elizabeth NP [address] [facility] [place], [address], [facility] 2 18:26:45 36865 lisinopri l medicatio n cough Not available Not available 10/28/2011 00997 RxNorm Yeny Elizabeth NP [address] [facility] [place], [address], [facility] 2 11:17:27 92381 Diovan medicatio n other mild Not available 11/10/2011 27100 2 RxNorm diarr hea and insom caridad Yeny Elizabeth, ANITRA [address] [place] [address], [place], [address], [facility] 2 11:50:20 Medications Name Sig Start [...] Not Available Not Available No t Available [facility] 1612-4016 (PF) 45 mcg (15 mcg x 3)/0.5 mL intramusc ular syringe inject 0.5 millilit er intramus cularly active Not Available Not Available No t Available [facility] 113 mcg-salme terol 14 mcg/actua tion breath activated powdr INHALE 1 PUFF BY MOUTH EVERY 12 HOURS active Not Available Not Available No t Available [facility]2016-2018 (PF) 45 mcg(15 mcg x 3)/0.5 [...] Updated DateTime 3 161.29 cm 20 kg/m2 88135.3 3 g 56 /min 142 mm[Hg] 82 mm[Hg] Gisselle Cid [facility] 13:45:40 Date Recorded Systolic blood pressure Diastolic blood pressure Provider Name and Address Organization Details Last Updated DateTime 01/01/2023 144 mm[Hg] 82 mm[Hg] CATHERINE Garza [address] [place] [address], [address], [facility] 01/01/2023 14:44:45 Date Recorded Heart rate Systolic blood pressure Diastolic blood pressure Provider Name and Address Organization Details Last Updated DateTime 05/01/2023 52 /min 131 mm[Hg] 86 mm[Hg] Jaida Rosales [facility] 05/01/2023 14:27:03 Date Recorded Body height Heart rate Systolic blood pressure Diastolic blood pressure Provider Name and Address Organization Details Last Updated DateTime 05/18/2023 161.29 cm 50 /min 164 mm[Hg] 76 mm[Hg] Jaimee Lowe RN BSN [facility] 05/18/2023 11:57:49 Date Recorded Body height Provider Name an d Address Organization Details Last Updated DateTime 06/29/2023 161.29 cm Rayna Stapleton [facility] 06/29/2023 09:58:50 Date Recorded Body height Body mass index (BMI) Body weight Heart rate Systolic blood pressure Diastolic blood pressure Provider Name and Address Organization Details Last Updated DateTime 4 161.29 cm 20.3 kg/m2 42322.1 1 g 52 /min 128 mm[Hg] 78 mm[Hg] Minerva Soto [facility] 4 13:56:26 Date Recorded Body height Body mass index (BMI) Body weight Heart rate Systolic blood pressure Diastolic blood pressure Provider Name and Address Organization Details Last Updated DateTime 4 160.02 cm 19.2 kg/m2 98165.4 1 g 49 /min 121 mm[Hg] 65 mm[Hg] Rosa Tran LPN [facility] 4 08:51:37 Date Recorded Body height Body mass index (BMI) Body weight Heart rate Systolic blood pressure Diastolic blood pressure Provider Name and Address Organization Details Last Updated DateTime 4 160.02 cm 19.6 kg/m2 18470.0 3 g 56 /min 136 mm[Hg] 74 mm[Hg] Rosa Tran LPN [facility] 4 13:55:04 Date Recorded Systolic blood pressure Diastolic blood pressure Provider Name and Address Organization Details Last Updated DateTime 01/28/2023 121 mm[Hg] 81 mm[Hg] CATHERINE Garza [address] [place] [address], [address] 02/06/2023 16:28:51 Date Recorded Systolic blood pressure Diastolic blood pressure Systolic blood pressure Diastolic blood pressure Provider Name and Address Organization Details Last Updated DateTime 05/21/2023 148 mm[Hg] 84 mm[Hg] 160 mm[Hg] 97 mm[Hg] Jatin garrido dave [facility] 3 15:52:51 Date Recorded Systolic blood pressure Diastolic blood pressure Systolic blood pressure Diastolic blood pressure Provider Name and Address Organization Details Last Updated DateTime 05/22/2023 152 mm[Hg] 90 mm[Hg] 171 mm[Hg] 87 mm[Hg] Jatin Stapleton [facility] 3 15:53:30 Date Recorded Systolic blood pressure Diastolic blood pressure Provider Name and Address Organization Details Last Updated DateTime 07/27/2023 117 mm[Hg] 78 mm[Hg] Radha Saini [facility] 07/27/2023 14:36:24 Social History Question Answer Notes LastModified by Organizat ion Details LastModified Time Tobacco Smoking Status Current Some Day Smoker PT currently smoking occasionally Rosa Tran LPN [facility] 04/03/2022 09:45:37 Do You Wear A Helmet When Biking? No No Bike Information not available 01/22/2015 What Is Your Level Of Caffeine Consumption? Moderate [email or web address] Information not available 06/26/2011 How Much Tobacco Do You Chew? None Information not available 01/22/2015 What Type Of Diet Are You Following? REGULAR Information not available 01/22/2015 Education Post Graduate [email or web address] Information not available 06/26/2011 When Did You Quit Smoking? 6-10yearssi ncelastciga rette Information not available 06/05/2021 How Many Days In The Past Year Have You Had A Heavy Drinking Consumption (4+ Female, 5+ Male)? 3 Information not available 01/22/2015 Are There Any Guns Present In Your Home? No [email or web address] Information not available 06/26/2011 Live Alone Or With Others? Alone [email or web address] Information not available 06/26/2011 Patient Has Health Care Proxy Signed And In Chart No Evelin(sister ) [email or web address] Information not available 06/23/2018 CCM Consent Discussion 07/08/2021 [email or web address] Information not available 07/11/2021 Marital Status Single Information not available 06/26/2011 Mosquito Repellent Used Routinely Yes [email or web address] Information not available 06/26/2011 What Was The Date Of Your Most Recent Tobacco Screening? 02/05/2024 [email or web address] Information not available 02/05/2024 How Many Children Do You Have? 0 [email or web address] Information not available 06/26/2011 Are There Any Occupational Health Risks Where You Work? No Information not available 01/22/2015 What Is Your Current Pack Years? 20-29packye ars Information not available 04/27/2015 Seat Belts Used Routinely Yes [email or web address] Information not available 06/26/2011 Are You Sexually Active? Yes [email or web address] Information not available 06/26/2011 Smoke Alarm In Home Yes [email or web address] Information not available 06/26/2011 At What Age Did You Start Smoking Tobacco? 17 [email or web address] Information not available 06/26/2011 How Much Tobacco Do You Smoke? No Information not available 04/03/2022 What Types Of Sporting Activities Do You Participate In? No Information not available 01/22/2015 General Stress Level Medium [email or web address] Information not available 06/26/2011 Do You Use Sunscreen Routinely? Yes [email or web address] Information not available 06/26/2011 How Many Years Have You Smoked Tobacco? 41 Information not available 06/05/2021 Sex: Unknown Functional Status Question Answer Note LastModified by Organization Details LastModified Time Do you use any illicit or recreational drugs? No Information not available 05/05/2024 Do you or have you ever used any other forms of tobacco or nicotine? Yes Information not available 04/03/2022 What is your level of alcohol consumption? 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 Family History Relationship [...] Immunizations Vaccine Type Date Status Note Provider David alexandre and Address Organization Details Recorded Time influenza, seasonal, intradermal, preservative free 1 completed Not Available [facility] 08/27/2019 02:34:20 Td(adult) unspecified formulation 6 completed Not Available [facility] 09/26/2023 00:24:31 influenza, unspecified formulation 7 completed Not Available [facility] 09/26/2023 00:24:31 Influenza, split virus, trivalent, preservative 2 completed Not Available [facility] 08/27/2019 02:32:24 Tdap 3 completed Not Available [facility] 08/27/2019 02:28:48 Novel [id number] 9 completed Not Available [facility] 08/27/2019 02:27:45 Influenza, split virus, trivalent, PF 3 completed Not Available [facility] 08/27/2019 02:18:58 Influenza, split virus, quadrivalent, PF 5 completed Not Available [facility] 08/27/2019 02:19:46 zoster live 5 completed Not Available [facility] 08/27/2019 02:19:45 influenza, unspecified formulation 6 completed Not Available [facility] 09/26/2023 00:24:31 influenza, unspecified formulation 7 completed Not Available [facility] 09/26/2023 00:24:31 Influenza, high-dose, quadrivalent, PF 0 completed Janee Bai LPN [facility], [facility] 05/28/2020 08:46:57 pneumococcal polysaccharide PPV23 0 completed BLANCA DOYLE, RN PROCEDURES [address] [place], [address], [facility] 06/20/2020 15:02:02 Influenza, split virus, trivalent, preservative 0 completed Not Available [facility] 08/27/2019 02:17:47 COVID-19, mRNA, LNP-S, PF, 30 mcg/0.3 mL dose 1 completed Not Available [facility] 09/26/2023 00:24:30 COVID-19, mRNA, LNP-S, PF, 30 mcg/0.3 mL dose 1 completed Not Available [facility] 09/26/2023 00:24:30 Td (adult), 2 Lf tetanus toxoid, preservative free, adsorbed 3 completed CATHERINE Garza [address] [place] [address], [address], [facility] 01/02/2023 07:56:47 Influenza, high-dose, quadrivalent, PF 1 completed Not Available [facility] 09/26/2023 00:24:30 COVID-19, mRNA, LNP-S, PF, 30 mcg/0.3 mL dose 1 completed Not Available [facility] 09/26/2023 00:24:31 COVID-19, mRNA, LNP-S, PF, 30 mcg/0.3 mL dose 2 completed Not Available [facility] 09/26/2023 00:24:31 zoster recombinant 2 completed Not Available [facility] 09/26/2023 00:24:30 Influenza, split virus, quadrivalent, preservative 2 completed Not Available [facility] 09/26/2023 00:24:30 Past Encounters Encounter ID Performer Location Encounter Start Date Encounter Closed Date Diagnosis/Indication Diagnosis SNOMED-CT Code Diagnosis ICD10 Code Diagnosis Note [id number] Tavon Machado. , [facility], OFFICE [address] [place] [address] 10/06/2002 15:52:18 08/30/2008 02:02:29 [id number] [facility] RAD[facility]OLOG[facility] , [address] [address] 10/06/2002 00:00:00 08/30/2008 02:02:29 [id number] [facility] RAD[facility] , [address] [address] 10/06/2002 16:36:55 08/30/2008 02:02:29 [id number] [facility] - [address] [address] 10/07/2002 15:46:52 08/30/2008 02:02:29 [id number] [facility] - [facility] [address] [place] [address] 11/08/2002 16:26:26 08/30/2008 02:02:29 [id number] Tavon Machado [facility], OFFICE [address] [place] [address] 11/08/2002 15:17:41 08/30/2008 02:02:29 [id number] Tavon Machado [facility], OFFICE [address] [place] [address] 12/08/2002 15:25:39 08/30/2008 02:02:29 [id number] [facility] - [facility] [address] [place] [address] 12/08/2002 15:51:11 08/30/2008 02:02:29 [id number] [facility] , [address] [address] 12/20/2002 14:48:00 08/30/2008 02:02:29 [id number] [facility] , [address] [address] 12/20/2002 00:00:00 08/30/2008 02:02:29 [id number] Tavon Machado [facility], OFFICE [address] [place] [address] 03/06/2003 10:13:04 08/30/2008 02:02:29 [id number] Tavon Machado [facility], OFFICE [address] [place] [address] 11/22/2003 12:59:27 11/22/2003 14:55:43 [id number] [facility] Radiology , [facility] [address] [place] [address] 12/26/2003 15:20:58 08/30/2008 02:02:29 [id number] [facility] Radiology , [facility] [address] [place] [address] 12/26/2003 00:00:00 08/30/2008 02:02:29 [id number] Tavon Machado [facility], OFFICE [address] [place] [address] 01/19/2004 14:11:55 01/19/2004 15:54:03 [id number] [facility], TERRELL FISH MD ASP, [facility] [address] [place] [address] 03/27/2004 10:47:20 03/28/2004 09:21:52 [id number] [facility] - [address] [address] 10/15/2004 14:29:29 10/15/2004 14:29:57 [id number] Tavon Machado , [facility], OFFICE [address] [place] [address] 12/11/2004 15:06:41 12/11/2004 17:50:16 [id number] [facility] RADIOLOGY [facility] , [address] [address] 12/11/2004 16:00:54 12/12/2004 08:22:27 [id number] [facility] RADIOLOGY [facility] , [address] [address] 12/11/2004 00:00:00 08/30/2008 02:02:29 [id number] [facility] Radiology , [address] [address] 01/02/2005 14:50:32 08/30/2008 02:02:29 [id number] [facility] Radiology , [address] [address] 01/02/2005 00:00:00 08/30/2008 02:02:29 [id number] Tavon Machado, [facility] [facility], OFFICE [address] [place] [address] 6 05/13/2005 14:40:24 08/30/2008 02:02:29 [id number] [facility] RADIOLOGY [facility] , [address] [address] 6 05/13/2005 15:36:22 08/30/2008 02:02:29 [id number] [facility] RADIOLOGY [facility] Radiology , [address] [address] 6 05/13/2005 00:00:00 08/30/2008 02:02:29 [id number] Angelo Mcwilliams , PT Physical Therapy, [address] [address] 6 05/26/2005 12:56:12 08/30/2008 02:02:29 [id number] Angelo Mcwilliams , PT Physical Therapy, [facility] [address] [place] [address] 6 06/11/2005 15:17:06 08/30/2008 02:02:29 [id number] Tavon Machado , [facility], OFFICE [address] [place] [address] 6 12/24/2005 15:41:01 12/25/2005 08:44:40 [id number] Tavon Machado , [facility], OFFICE [address] [place] [address] 6 12/24/2005 15:41:01 12/25/2005 08:44:40 [id number] [facility] , [facility] [address] [place] [address] 6 01/15/2006 14:31:58 01/16/2006 09:26:07 [id number] [facility] , [address] [address] 6 01/15/2006 00:00:00 08/30/2008 02:02:29 [id number] Tavon Machado [facility], OFFICE [address] [place] [address] 6 04/22/2006 15:44:51 04/23/2006 08:28:48 [id number] [facility] - [address] [address] 6 04/22/2006 16:15:54 04/22/2006 16:16:11 [id number] Tavon Machado [facility], OFFICE [address] [place] [address] 6 04/30/2006 15:02:17 05/01/2006 08:35:41 [id number] [facility] , [address] [address] 6 05/31/2007 14:16:16 06/01/2007 09:45:04 [id number] [facility] , [facility] [address] [place] [address] 6 05/31/2007 00:00:00 08/30/2008 02:02:29 [id number] Tavon Machado , [facility], OFFICE [address] [place] [address] 6 06/01/2007 15:54:13 08/30/2008 02:02:29 [id number] FP TREATMENT NURSE [facility], [facility], OFFICE [address] [place] [address] 6 07/06/2007 15:59:53 08/30/2008 02:02:29 [id number] [facility] Radiology , [address] [address] 6 07/06/2007 15:26:24 07/07/2007 09:44:25 [id number] [facility] Radiology , [address] [address] 6 07/06/2007 00:00:00 08/30/2008 02:02:29 [id number] [facility] COMIC WRITER Radiology , [address] [address] 6 07/06/2007 17:40:10 07/07/2007 09:44:33 [id number] [facility] COMIC WRITER Radiology , [address] [address] 6 07/06/2007 00:00:00 08/30/2008 02:02:29 [id number] Tavon Machado [facility], OFFICE [address] [place] [address] 6 12/20/2007 09:22:27 08/30/2008 02:02:29 [id number] [facility] - [address] [address] 6 12/20/2007 09:59:25 12/20/2007 09:59:40 [id number] [facility] , [address] [address] 6 06/24/2008 11:14:13 06/26/2008 09:15:42 [id number] [facility] - [address] [address] 6 07/24/2008 12:24:22 07/24/2008 12:24:31 [id number] Tavon Machado [facility], OFFICE [address] [place] [address] 6 07/24/2008 11:11:08 08/30/2008 02:02:29 [id number] [facility] Radiology , [address] [address] 6 07/30/2009 12:03:57 07/31/2009 14:41:39 [id number] ANITRA Paz, [facility], OFFICE [address] [place] [address] 6 07/30/2009 12:53:39 08/01/2009 09:41:41 [id number] ANITRA Paz, [facility], OFFICE [address] [place] [address] 6 09/03/2009 10:36:11 09/05/2009 09:01:25 [id number] ANITRA Montalvo, [facility], OFFICE [address] [place] [address] 6 02/18/2010 16:06:54 02/21/2010 11:14:25 [id number] ANITRA Montalvo, [facility], OFFICE [address] [place] [address] 6 03/04/2010 10:51:19 03/05/2010 09:13:07 [id number] ANITRA Montalvo, [facility], OFFICE [address] [place] [address] 6 04/08/2010 10:49:52 04/10/2010 12:33:40 [id number] ANITRA Montalvo, [facility], OFFICE [address] [place] [address] 6 05/06/2010 11:06:59 05/09/2010 08:14:35 [id number] ANITRA Montalvo, [facility], OFFICE [address] [place] [address] 6 09/04/2010 10:12:54 09/09/2010 09:54:47 [id number] [facility] Radiology , [facility] [address] [place] [address] 6 09/04/2010 11:35:48 09/05/2010 13:47:30 [id number] ANITRA Guidry, [facility], OFFICE [address] [place] [address] 02/17/2011 15:12:45 02/17/2011 16:18:23 [id number] ANITRA Guidry, [facility], OFFICE [address] [facility] [place] [address] 03/03/2011 11:25:18 03/03/2011 12:35:48 [id number] Yeny Elizabeth NP FP, [facility], OFFICE [address] [place] [facility] [place] [address] 05/05/2011 11:10:16 05/05/2011 12:18:53 [id number] Yeny Elizabeth NP FP, [facility], OFFICE [address] [facility] [place] [facility] [place] [address] 06/16/2011 11:24:27 06/16/2011 12:27:11 [id number] Yeny Elizabeth NP FP, [facility], OFFICE [address] [facility] [place] [address] 6 09/12/2011 11:49:49 09/12/2011 12:53:46 [id number] Yeny Elizabeth NP FP, [facility], OFFICE [address] [facility] [place] [address] 09/15/2011 10:11:06 09/15/2011 11:20:27 [id number] [facility] MAMMO TECH Radiology , [facility] [address] [facility] [place] [address] 6 09/15/2011 11:18:59 09/22/2011 11:25:46 [id number] [facility] COMIC WRITER Radiology , [facility] [address] [facility] [place] [address] 6 09/15/2011 11:22:42 09/22/2011 11:26:39 [id number] [facility] COMIC WRITER Radiology , [facility] [address] [facility] [place] [address] 6 09/15/2011 13:02:14 09/22/2011 11:27:06 [id number] Yeny Elizabeth NP FP, [facility], OFFICE [address] [facility] [place] [address] 6 09/19/2011 16:05:15 09/19/2011 17:14:17 [id number] Yeny Elizabeth NP FP, [facility], OFFICE [address] [facility] [place] [address] 6 10/16/2011 11:04:47 10/16/2011 12:36:29 [id number] Yeny Elizabeth NP FP, [facility], OFFICE [address] [place] [address] 6 10/23/2011 10:47:33 10/23/2011 11:31:44 [id number] Yeny Elizabeth NP FP, [facility], OFFICE [address] [facility] [place] [facility] [place] [address] 10/28/2011 10:53:53 10/28/2011 11:41:32 [id number] Toby Huffman MD FP, [facility], OFFICE [address] [facility] [place] [facility] [place] [address] 6 11/10/2011 11:00:59 11/10/2011 12:05:22 [id number] Boo Christine MD FP, [facility], OFFICE [address] [facility] [place] [facility] [place] [address] 12/22/2011 11:30:06 12/22/2011 12:11:38 [id number] Balbir Cruz MD Radiology , [facility] [address] [facility] [place] [facility] [place] [address] 6 05/03/2012 11:01:39 05/04/2012 10:48:40 [id number] Boo Christine MD , [facility], OFFICE [address] [facility] [place] [facility] [place] [address] 6 05/11/2012 11:43:11 05/11/2012 12:45:41 [id number] [facility] FLU CLINIC FP, [facility], OFFICE [address] [facility] [place] [facility] [place] [address] 05/13/2012 06:44:42 05/13/2012 16:24:11 [id number] Yeny Elizabeth NP FP, [facility], OFFICE [address] [facility] [place] [facility] [place] [address] 6 10/11/2012 14:33:17 10/11/2012 17:18:16 [id number] Antonio Urbano MD Radiology , [facility] [address] [facility] [place] [facility] [place] [address] 10/18/2012 11:02:02 10/19/2012 10:11:53 [id number] Yeny Elizabeth NP FP, [facility], OFFICE [address] [facility] [place] [address] 6 11/29/2012 11:09:20 11/29/2012 12:09:21 [id number] Yeny Elizabeth NP FP, [facility], OFFICE [address] [facility] [place] [address] 6 12/27/2012 11:13:39 12/27/2012 12:12:31 [id number] Yeny Elizabeth NP FP, [facility], OFFICE [address] [place] [address] 6 01/24/2013 10:58:06 01/24/2013 11:59:15 [id number] Yeny Elizabeth NP FP, [facility], OFFICE [address] [place] [address] 6 05/02/2013 10:58:25 05/02/2013 12:23:22 Acute bronchitis 63155701 Pain of joint 52171782 Influenza vaccine needed 7779326062 [id number] Boo Christine MD , [facility], OFFICE [address] [place] [address] 6 12/26/2013 15:36:32 12/26/2013 16:51:55 Adult health examination [id number] see Risk Assessment and Lifestyle Change Counseling section above Allergic rhinitis 38936793 Backache 644227919 Sinusitis 47422888 Screening for malignant neoplasm of cervix 109136080 Thyroid nodule 326165722 [id number] Boo Christine MD , [facility], OFFICE [address] [place] [address] 6 01/22/2015 13:40:10 01/22/2015 14:50:12 Adult health examination 889858191 see Risk Assessment and Lifestyle Change Counseling section above Benign ess ential hypertension 8047479 Blood pressure at goal Backache 928791363 Major depr ession, melancholic type 394120405 Gastroesop hageal reflux disease 121134169 Sleep apnea 58845349 [id number] MD VICK Cardenas, [facility], OFFICE [address] [place] [address] 6 04/10/2015 11:01:34 04/10/2015 12:19:45 Lifestyle 215066626 Benign ess ential hypertension 5525659 Blood pressure at goal Backache 292203651 Varicella vaccination 82787512 Influenza vaccine needed 3938139669 [id number] MD VICK Cardenas, [facility], OFFICE [address] [place] [address] 6 04/27/2015 11:53:26 04/27/2015 12:51:23 Backache 094623390 Benign ess ential hypertension 3698507 Blood pressure at goal Will be getting another 24hr monitor by nephrologi st due to labile BP, difficult to control [id number] Yeny Elizabeth NP FP, [facility], OFFICE [address] [place] [address] 6 06/04/2015 11:08:23 06/04/2015 14:55:19 Tuberculosis screening 571614375 Z11.1 [id number] Yeny Elizabeth NP FP, [facility], OFFICE [address] [place] [address] 6 06/18/2015 11:15:27 06/18/2015 13:05:30 Tuberculosis screening 692171639 Z11.1 [id number] Yeny Elizabeth NP FP, [facility], OFFICE [address] [place] [address] 6 07/26/2015 11:30:59 07/26/2015 12:23:47 Benign essential hypertension 1651766 I10 Blood pressure NOT at goal. [id number] Boo Christine MD FP, [facility], OFFICE [address] [place] [address] 6 01/25/2016 15:49:01 01/29/2016 10:59:33 Adult health examination 090739831 Z00.00 see Risk Assessment and Lifestyle Change Counseling section above Benign ess ential hypertension 4859461 I10 Blood pressure NOT at goal. Mixed hyperlipidemia 267 650378 E78.2 [id number] Boo Christine MD FP, [facility], OFFICE [address] [place] [address] 6 02/29/2016 09:37:18 02/29/2016 10:27:55 Hand pain 24895194 M79.642 Benign ess ential hypertension 3138462 I10 Blood pressure NOT at goal. [id number] Boo Christine MD FP, [facility], OFFICE [address] [place] [address] 6 07/28/2016 14:23:55 07/28/2016 15:14:02 Benign essential hypertension 8341114 I10 Blood pressure NOT at goal despite 3 agents. Can't tolerate spironolac tone. Mixed hyperlipidemia 267 074768 E78.2 Acute uppe r respiratory infection 78309447 J06.9 [id number] Boo Christine MD , [facility], OFFICE [address] [place] [address] 6 01/26/2017 15:38:43 01/26/2017 17:01:04 Adult health examination 719645090 Z00.00 see Risk Assessment and Lifestyle Change Counseling section above Benign ess ential hypertension 0644895 I10 Blood pressure at goal. Backache 002835518 M54.9 [id number] Boo Christine MD , [facility], OFFICE [address] [place] [address] 6 05/19/2017 15:23:45 05/19/2017 16:05:28 Cough 94363732 R05 Benign ess ential hypertension 4781077 I10 Blood pressure not at goal. [id number] Boo Christine MD , [facility], OFFICE [address] [place] [address] 6 06/26/2017 07:49:26 06/26/2017 08:38:01 Benign essential hypertension 8017881 I10 Blood pressure at goal [id number] Boo Christine MD , [facility], OFFICE [address] [place] [address] 6 02/16/2018 15:32:13 02/16/2018 16:54:41 Adult health examination 747305711 Z00.00 see Risk Assessment and Lifestyle Change Counseling section above Depression screening 171 610988 Z13.89 depression screening tool administer ed, entered into emr, scored and discussed, time greater than 7.5 minutes Benign ess ential hypertension 8922165 I10 Blood pressure at goal Cough 97546246 R05 Using ProAir occasional ly Screening for malignant neoplasm of colon 866991860 Z12.11 Referral for a DIRECT booked colonoscop y. This patient is a healthy ASA Class 1 or 2 patient (only mild systemic disease), or a STABLE, well controlled insulin dependent diabetic. They do not have serious cardiac disease ie HI/angiopl asty within 1 year, symptomati c CHF; renal failure with CKD 4 or 5; take Coumadin, Plavix, Aggrenox, etc. Sleep apnea 19246462 G47 .30 Please get back to me with name of Cpap provider, will update orders so you can use it again. Impaired f asting glycemia 812931086 R73.01 Blood sugar today 84, continue to monitor [id number] Boo Christine MD , [facility], OFFICE [address] [place] [address] 6 09/14/2018 17:17:47 09/16/2018 11:01:46 Mixed hyperlipidemia 757436928 E78.2 Benign ess ential hypertension 8530293 I10 Blood pressure at goal Cough 93994204 R05 Using ProAir occasional ly Backache 477264623 M54.9 Wheezing 00774339 R06.2 Normal grief reaction 27 0775967 F43.20 [id number] Boo Christine MD , [facility], OFFICE [address] [place] [address] 6 10/05/2018 15:20:09 10/05/2018 16:27:59 Benign essential hypertension 7388217 I10 Thyroid nodule 671575736 E04.1 Cough 58616444 R05 [id number] Boo Christine MD , [facility], OFFICE [address] [place] [address] 6 11/02/2018 16:39:52 11/03/2018 09:00:16 Benign essential hypertension 2746601 I10 [id number] Walter López MD , [facility], OFFICE [address] [place] [address] 6 11/25/2019 13:48:50 11/28/2019 14:47:15 Urinary tract infectious disease 22343062 N39.0 Patient instructed to push fluids, to follow up for persistent or worsening symptoms or fever or back pain.Treat for presumptiv e infection w/ bactrim.Co nsider musculoske latal vs stone. If no improvemen t will need imaging and cultures. [id number] Walter López MD , [facility], OFFICE [address] [place] [address] 6 11/30/2019 15:08:40 12/02/2019 13:07:04 Low back pain 527784070 M54.5 Nausea 095517496 R11.0 Night sweats 68594511 R6 1 [id number] Boo Christine MD , [facility], OFFICE [address] [place] [address] 6 05/25/2020 16:15:13 05/28/2020 13:23:56 Active or passive immunization 941547936 Z23 [id number] BLANCA DOYLE NP , [facility], OFFICE [address] [place] [address] 6 06/20/2020 09:51:52 06/22/2020 12:18:11 Abdominal pain 93334884 R10.9 New concern, unclear if all symptoms related to same cause, ? cystitis and/or kidney stones given lower abdominal pain with radiation to groin with back pain, POCT urine with trace leuks only, plan to send for culture. Mass palpated in periumbili laney area ? hernia, plan to obtain CT of abdomen and pelvis to further assess all concerns. Screening mammography 24 770300 Z12.31 Routine screening due, patient agreeable, would like to schedule with G, aware of wait time. Active or passive immunization 515321493 Z23 Depression screening 171 279293 Z13.31 - depression screening tool administer ed, entered into emr, scored and discussed, time greater than 7.5 minutes-Co ntinue sertraline [id number] Boo Christine MD , [facility], OFFICE [address] [place] [address] 6 07/03/2020 15:32:37 07/04/2020 18:49:34 Essential hypertension 08337915 I10 Major depr ession, melancholic type 725972178 F32.9 Multiple n odules of lung 791341588 R91.8 Liver mass 640066644 R16 .0 [id number] Boo Christine MD , [facility], OFFICE [address] [place] [address] 6 08/21/2020 11:04:42 08/21/2020 14:03:59 Essential hypertension 54514466 I10 Vitamin D deficiency 347 73653 E55.9 Thyroid nodule 147836073 E04.1 Multiple n odules of lung 138809670 R91.8 diffuse, bilateral Tremor 50022678 R25.1 L hand 4th & 5th fingers. [id number] Boo Christine MD , [facility], OFFICE [address] [place] [address] 10/23/2020 09:00:28 10/24/2020 16:08:20 Essential hypertension 27110234 I10 Mixed hyperlipidemia 267 272472 E78.2 Major depr ession, melancholic type 454538078 F32.9 sertraline 200mg daily. Multiple n odules of lung 855710671 R91.8 diffuse, bilateral Vitamin D deficiency 347 90637 E55.9 [id number] Boo Christine MD , [facility], OFFICE [address] [place] [address] 12/06/2020 11:27:07 12/07/2020 09:46:33 Essential hypertension 08895130 I10 Mixed hyperlipidemia 267 444404 E78.2 Chronic ob structive pulmonary disease 69672941 J44.9 Adult heal th examination 845735596 Z00.00 see Risk Assessment and Lifestyle Change Counseling section above Counseling 039145612 Z71 .9 including cardiovasc ular risk reduction counseling Depression screening 171 024629 Z13.31 depression screening tool administer ed, entered into emr, scored and discussed, time greater than 7.5 minutes. Screening reviewed with pt. treated for depression with sertraline . Screening for alcohol abuse 750323243 Z13.39 [id number] Everardo Vazquez MD Endocrino logy, [facility] [address] [place] [address] 12/20/2020 15:28:49 12/21/2020 06:31:01 Thyroid nodule 260968252 E04.1 Right nodule. Cytology from [facility] reports benign . This [...] genetic analysis. Multiple n odules of lung 909545222 R91.8 Adds to complexity . Concern about whether we can definitive ly link lung nodules to a known primary. Chronic ob structive pulmonary disease 58923935 J44.9 Clinically . Recent PFTs (08/30) c/w emphysema or interstiti al lung disease. Vitamin D deficiency 347 25762 E55.9 Level of 13 (07/29). Given 50K weekly x 1 month. No f/u orders placed. [id number] Everardo Vazquez MD Endocrino log, [address] [address] 12/27/2020 12:55:55 12/28/2020 06:32:34 [id number] Everardo Vazquez MD Endocrino log, [facility] [address] [place] [address] 01/03/2021 14:30:30 01/08/2021 13:15:42 Thyroid nodule 276308189 E04.1 Right nodule. Cytology: Allen IV: Suspicious for Follicular Neoplasm. 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 Also expression atlas pending. Reviewed ramificati [...] these options are consistent with cytology from [facility] which reported results as benign . While thyroid CA can metastasiz e to lung, one would typically expect to see adenopathy . She has not had significan t apparent adenopathy on exam. Have discussed case with Pulmonary. Genetic sequencing and expression atlas pending. Multiple n odules of lung 676037265 R91.8 Adds to complexity . Concern about whether we can definitive ly link lung nodules to a known primary. Chronic ob structive pulmonary disease 83033921 J44.9 Clinically . Recent PFTs (08/30) c/w emphysema or interstiti al lung disease. Vitamin D deficiency 347 00373 E55.9 Level of 13 (07/29). Given 50K weekly x 1 month. No f/u orders placed. 12/28: suggest get vit D level checked. [id number] oBo Christine MD , [facility], OFFICE [address] [facility] [place] [address] 06/05/2021 10:44:10 06/05/2021 11:39:08 Essential hypertension 44654929 I10 Chronic ob structive pulmonary disease 05734929 J44.9 Cigarette smoker 5230197 7 F17.210 Tobacco user 763583780 Z 72.0 Screening for osteoporosis 468354855 Z13.820 Low back pain 741316515 M54.50 Multiple n odules of lung 724325595 R91.8 diffuse, bilateral Thyroid nodule 760507597 E04.1 Benign ess ential hypertension 7226064 I10 [id number] GLENROY MARTI MD , [facility], OFFICE [address] [place] [address] 07/08/2021 11:51:46 07/16/2021 09:19:52 Spasm 84727971 R25.2 describes muscle jerking like spasmrecen t thyroidect yeni, r/o parathyroi d injury - check Cacheck magnesiumi f all normal, she wants to talk to dr. Vazquez at upcoming appt and ask if he thinks this is related somehow to her thyroid. I advised her to let me know if he states it isn't. 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 Should have TSH/free T4 checked (per d/c summary) and see Dr. Vazquez as scheduled. She will have labs today. [id number] Everardo Vazquez MD Endocrino logy, [address] [address] 07/18/2021 11:18:55 07/26/2021 06:28:00 Multiple nodules of lung 569683685 R91.8 Adds to complexity . Concern about whether we can definitive ly link lung nodules to a known primary. Chronic ob structive pulmonary disease 38547119 J44.9 Clinically . Recent PFTs (08/30) c/w emphysema or interstiti al lung disease.Di scussed this in relation to smoking and reasons to quit. Vitamin D deficiency 347 70928 E55.9 D= 36.4 (06/30); was 33 (01/28); was 13 (07/29). Had 50K weekly x 1 month.Take s 1-2 daily supplement (07/30). Cigarette smoker 2509036 7 F17.210 Since no clear evidence of metastatic disease, discussed risks/harm s of smoking. Tobacco user 975353403 Z 72.0 Sweating 981797132 R61 Some diarrhea afterwards . Check catechols and also 5hiaa. 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 Not on repalcemen t. check TFTs. [id number] GLENROY MARTI MD , [facility], OFFICE [address] [place] [address] 10/31/2021 13:22:38 11/11/2021 09:15:16 Pre-surgery evaluation 161560480 Z01.818 Summary: has low rahel-opera tive risk [...] prophylaxi s as per surgical protocol Backache 687014532 M54.9 rare use of tramadol - refill sent [id number] GLENROY MARTI MD , [facility], OFFICE [address] [place] [address] 12/23/2021 13:29:28 12/23/2021 14:49:50 Adult health examination 863629477 Z00.00 See risk assessment portion of HPI Counseling 922585684 Z71 .9 including cardiovasc ular risk reduction counseling Cardiovasc ular risk reduction was discussed including benefits and risks of aspirin, exercise goals, healthy eating and healthy weight . Discussion greater than 7.5 minutes. Depression screening 171 146500 Z13.31 depression screening tool administer ed, entered into emr, scored and discussed, time greater than 7.5 minutes Screening for alcohol abuse 252350382 Z13.39 An audit alcohol screening test was performed and scored. Patient was asked about alcohol use, advised about risks of alcohol, and personal risk was assessed, patient agreed to plan and given informatio n about available resources if needed. Discussion including screening and scoring less than 7.5 minutes Mixed hyperlipidemia 267 356749 E78.2 Cholestero l is at goal. LDL 65Continue to work on diet and exercise as discussed Essential hypertension 71002191 I10 Controlled . Continue current regimen. Pain of ri ght hip joint 6415291543 86553 M25.551 xrays r/o DJDES Tylenolhad been told not to take NSAIDs due to hypertensi on. Used to prefer Aleve. If pain is not controlled with Tylenol, will try Aleve (or prescripti on naproxen 500 mg) as needed - let me know. Major depr ession, melancholic type [id number] F33.1 continue sertraline , follow up with therapist. Has been sensitive to other meds so would prefer to stay on same dose. I need a schedule, I need someplace to go. No thoughts of harming herself. Screening mammography 24 004098 Z12.31 Chronic ob structive pulmonary disease 80307800 J44.9 breathing OK - smoking 1 pk/weekCT showed Upper lobe predominan t centrilobu lar emphysema in 01/25/21 at [facility].uses Breo every other day or every 3 days. Legs get stiff when she uses this daily.No glaucoma Mass of axilla 210866894 R22.2 felt last but none now. ?lymph nodeNothin g palpable todayUS ordered [id number] Everardo Vazquez MD Endocrino logy, [facility] [address] [place] [address] 04/03/2022 09:31:23 04/03/2022 13:42:46 Sweating 681596348 R61 Has c/o diarrhea and intermitte nt sweats. Had normal catechols. 5hiaa was slightly high (issues with urine pH collection ). Not high enough to be suspicious for carcinoid. If sx persist, may need to repeat. Multiple n odules of lung 236098245 R91.8 Adds to complexity . Concern about whether we can definitive ly link lung nodules to a known primary. Chronic ob structive pulmonary disease 83377281 J44.9 Clinically . Recent PFTs (08/30) c/w emphysema or interstiti al lung disease.Di scussed this in relation to smoking and reasons to quit. Vitamin D deficiency 347 65234 E55.9 D= 47.5 (03/31); was 36.4 (06/30); was 33 (01/28); was 13 (07/29). Was taking 1-2 daily supplement but lately more prn. Cigarette smoker 6051121 7 F17.210 Since no clear evidence of metastatic disease, discussed risks/harm s of smoking. 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 Not on replacemen t. Check TFTs. [id number] Walter López MD , [facility], OFFICE [address] [place] [address] 05/16/2022 14:08:49 05/16/2022 14:58:54 Tobacco user 969605660 Z72.0 not discussed today, will discuss at f/usmoking occasional ly per chart review Active or passive immunization 330985274 Z23 pt already had flu vaccinerem inded about shingles vaccine Pain in right hand 29719 24051 79382 M79.641 s/p fall 2 weeks agorepeat hand/wrist xrays given recurrent edema and painok to continue compressio n brace, rest, ice in the interim Pleuritic pain 4895078 R 07.81 new as of last nightreass uring examencour aged to continue monitoring and call with any changes/wo rsening Pain of ri ght hip joint 4605212558 57241 M25.551 May xray reviewed - moderate degenerati ve changesPT and ortho referrals sentcall as needed Bone density finding 385 444147 M85.80 results 03/2022 reviewed - low bone massFRAX score reviewed: 10 y risk major risk 11%, hip 3.3%discus sed tx options, for now will optimize vitamin D, calcium, and weight-godwin ring and muscle-str engthening repeat scan 2 years Urgent rosalino alan to urinate 68495905 R39.15 POC UA showing trace leuksnot enough urine for culture at appt, will have pt return for this Chronic ob structive pulmonary disease 78268863 J44.9 looking into new pulmonolog ist, has recs from Dr. Vazquez1x refill sent of Treludmilagy so she has it on hand in the interim Backache 366142989 M54.9 takes tramadol sparingly as needed for chronic back painlast fill 01/2022 per masspatwil l reassess at f/u [id number] Walter López MD , [facility], [address]ICE [address] [place] [address] 01/01/2023 13:14:36 01/01/2023 14:31:56 Adult health examination 256083896 Z00.00 Depression screening 171 873638 Z13.31 depression screening tool administer ed. as below. Screening for alcohol abuse 175108162 Z13.39 Alcohol use screening tool administer ed. rec max 7 drinks/wee k. Essential hypertension 46423628 I10 consistent ly above goalincrea se nifedipine to 90mg daily (currently taking 60mg daily)f/u 1 month to reassess Mixed hyperlipidemia 267 306813 E78.2 Cholestero l is at goalContin ue to work on diet and exercise as discussed Screening mammography 24 930268 Z12.31 due Active or passive immunization 215546869 Z23 reminded about shingles vaccinetet anus vaccine will do Increased frequency of urination 674198154 R35.0 POC UA negative, unable to send for culture due to limited supplycall with any new/worsen ing symptoms Chronic ob structive pulmonary disease 09323361 J44.9 needs referral to new pulmonolog ist, she will get the name and let us know where she'd like to godoing well otherwise with current inhaler regimen Impaired f asting glycemia 234309749 R73.01 improving, recent A1C 5.2 Bone density finding 385 587385 M85.80 results 03/2022 reviewed - low bone massFRAX score reviewed: 10 y major risk 11%, hip 3.3%prefer s to continue to optimize vitamin D, calcium, and weight-godwin ring and muscle-str engthening repeat scan 2 years Major depr ession, melancholic type 128466467 F33.1 reports acute on chronic depression does virtual therapy which helpsalso continues on sertraline Tobacco user 662102265 Z 72.0 We discussed your smoking today for more than 3 minutes. Cigarette use is the leading cause of preventabl e disease, disability , and in the [place]. We talked about tools and medication s available to help you in smoking cessation. We discussed utilizing our smoking cessation call or contact centre coach and online resources. Your personal goal: to quit! Multiple n odules of lung 119167170 R91.8 per problem list/forme r PCP CE - non-cancer ous. followed by Dr. Leavitt . 09/04/21 note - surveillan ce is complete. pt interested in low dose CT screening to use as f/u as well, as above. Candidiasis of mouth 797 95291 B37.0 will treat with darian per patient preference continue good oral hygiene after inhaler usecall if not resolving History of subtotal thyroidectomy 185978787 Z90.09 original concern for metastatic CA as multiple lung nodules, PET lit up mass in thyroid, now s/p subtotal thyroidect yeni, not on medication , following with Dr. Vazquez regularly History of partial resection of colon 797082057 Z90.49 pre cancerous polyp removal 2008, gets colonoscop ies q5 years [id number] Walter López MD , [facility], [address] [place] [address] 05/18/2023 11:17:42 05/19/2023 14:44:12 [id number] JANEE SHIELDS MD , [facility], [address]ICE [address] [place] [address] 02/05/2024 13:40:32 02/05/2024 17:40:33 Cough 69077425 R05.9 Essential hypertension 59670074 I10 Has been elevated in the past so will monitor closely. Reduce nifedipine to 60 mg daily. Continue losartan and labetolol. Mixed hyperlipidemia 267 176848 E78.2 She would like to try discontinu ing the statin. Agreed this is fine but we should recheck her cholestero l in a month. Lightheadedness 93414378 8 R42 Mostly with standing. I think [...] the beta fidel. Unintentio nal weight loss 482153783 R63.4 Thinks this was due to breaking her teeth, sore teeth. Advised her to continue to use her protein shakes. Will check some labs as above. Will need to monitor. Chronic ob structive pulmonary disease 12722303 J44.9 Continue inhalers and follow up with pulm. Refilled albuterol - see below. Abnormal gait 26475240 R 26.9 She does have a stiff and tentative gait. Unclear whether this is due to deconditio luisito, her concerns about falling or something neurologic al. Will re-evaluat e at next visit. 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 Not on replacemen t.Update TFTs since having sx. Chronic ob structive pulmonary disease 86176678 J44.9 Clinically . Recent PFTs (08/30) c/w emphysema or interstiti al lung disease.Di scussed this in relation to smoking and reasons to quit. Cigarette smoker 3172828 7 F17.210 Since no clear evidence of metastatic disease, discussed risks/harm s of smoking. Tobacco user 139135924 Z 72.0 counseling . Thyroid fu nction tests abnormal 763860332 R94.6 Not controlled . TSH= 2.3 (03/02) was 1.32 (01/31) ft4= 0.71 (03/02); was 0.7 (07/02) She is having multiple sx that might be c/w insufficie nt thyroid. Low T4 in setting of normal TSH is not c/w primary abnormalit y. Suggests possibilit y of secondary (pituitary ) issue.che k labs. Dizziness 813751282 R42 Not controlled Orthostati cs show now rise in HR with standing (drops systolic > 20 but not hypotensiv e).On labetalol- 150 bid (was 300 bid). decreased a year ago (?06/01?)c quink cortisol/a cth. If OK, may want to review use of labetalol vs. change to alternativ e. Osteopenia with high fracture risk 6982573870 76415 M85.80 BMD @ VMGL1-L4= -0.1 (05/01) .Femoral Neck= -1.9 (05/01)Left Total Hip= -1.5 (05/01)Risk s: thin, white, post-menop ausal and smoker. Has had wrist fx. Update with new baseline. [id number] Everardo Vazquez MD Endocrino logy, [address] [phone] 06/23/2024 13:35:00 06/27/2024 06:21:22 Thyroid function tests abnormal 361078665 R94.6 Not controlled . TSH=4.12 (06/02) was [...] related to thyroid. 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 Not on replacemen t.Update TFTs since TSH is slowly rising (although still WNL). Dizziness 728749433 R42 Not controlled Orthostati cs showed rise in HR with standing (drops systolic > 20 but not hypotensiv e).On labetalol- 150 bid (was 300 bid). decreased a year ago (?06/01?) Checked cortisol/a cth and those were OKMay want to review use of labetalol vs. change to alternativ e. Osteopenia with high fracture risk 0205128827 51058 M85.80 BMD @ VMGL1-L4= -0.1 (05/01) .Femoral Neck= -1.9 (05/01)Left Total Hip= -1.5 (05/01)Risk s: thin, white, post-menop ausal and smoker. Has had wrist fx. Recommend: - Update with new baseline in future.- Talk to PCP about physical therapy focus on exercises that don't make dizziness worse. Chronic ob structive pulmonary disease 73920262 J44.9 Clinically . Recent PFTs (08/30) c/w emphysema or interstiti al lung disease.Di scussed this in relation to smoking and reasons to quit. Cigarette smoker 8097552 7 F17.210 Since no clear evidence of metastatic disease, discussed risks/harm s of smoking. Tobacco user 538111453 Z 72.0 counseling . Health Concerns Section Related Observation LastModified by Organization Detai ls LastModified Time None Recorded Concern Status LastModified by Organization Details LastModified Time None Recorded Advance Directives Directive None Recorded Payers Encounter Date Sequence Insurance Name Policy Number Policy Coppola Covered Member ID Coppola Member ID Guarantor Name 01/01/2023 2 [facility] (MEDICARE SUPPLEMENT) Linda Diehl [id number] Linda Diehl 01/01/[address] [facility] (MEDICARE REPLACEMENT/A DVANTAGE - PPO) [id number] Linda Diehl [id number] Linda Diehl 05/18/2023 2 [facility] (MEDICARE SUPPLEMENT) Linda Diehl [id number] Linda Diehl 05/18/2023 1 [facility] (MEDICARE REPLACEMENT/A DVANTAGE - PPO) [id number] Linda A Carlosan [id number] Linda Diehl 02/05/2024 1 [facility] (MEDICARE REPLACEMENT/A DVANTAGE - PPO) [id number] Linda A Dinan [id number] Linda Diehl 05/05/2024 1 [facility] (MEDICARE REPLACEMENT/A DVANTAGE - HMO) [id number] Linda A Carlosan [id number] Linda Diehl 06/23/[address] [facility] (MEDICARE REPLACEMENT/A DVANTAGE - PPO) [id number] Linda Diehl [id number] Linda Diehl Notes Date Note Type Note [...] Risk Assesment:Family History of Coronary Artery Disease(father HI age 62);Does not participate in regular exercise [...] pressure; Has been difficult to control. 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 [...] suspicious. Had lobectomy (07/30) Bx done through [facility] Radiology: 2.2x1.7x2.9 (5 passes)- [...] to July 2020. Everardo Vazquez MD [address] [place] [address], [phone], [facility] 05/05/2024 12:57:58 4 text/html ThyroidReported bypatient.Previous Evaluation:Previous biopsy cytology (Allen IV: Suspicious for follicular neoplasm. Genomic sequencing [...] hard.); Big issue with balance.Notes:Dx depression since . Thinks it's more severe. SURGERY: right lobectomy [...] or evaluation until current issues came up.a/vmg-smoking [id number] bypatient.ImportanceOn a scale of 1-10 with 1 [...] better (but still high). F/U prn.PULM: [facility] ([place]) Follow-Up: thyroid noduleVMG Tobacco / Vaping Use epLV on 05/03LAst labs on 06/02Last Thyroid US on 1PT had a Ranjith-thyroidectomy in [place] bone density 2021 at [facility] ordered by PCPNO Labs cuedSmoking [...] balance. 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 [...] suspicious. Had lobectomy (07/30) Bx done through [facility] Radiology: 2.2x1.7x2.9 (5 passes)- [...] to July 2020. Everardo Vazquez MD [address] [place] [address], [phone], [facility] 06/26/2024 18:32:05 OBGyn Episode No OBEpisode recorded.
== END 2024-12-26 08:34 | disposition home or self-care (01) ==
LOC: HO.HOSX 08:33
PROVIDERS: Visit Provider Orthopaedic Surgery
DX: M25.559 Pain in unspecified hip (principal); M16.11 Unilateral primary osteoarthritis, right hip; M11.251 Other chondrocalcinosis, right hip
CPT/HCPCS: 72170; 99202

== ENCOUNTER 2024-12-26 10:46 | Outpatient (AMB) | payer MEDICARE, SELFPAY ==
--- NOTE | 2024-12-26 10:49 | A.OFFVIS_ITS ---
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 Patient reports that she has had ongoing pain for a few years now. She has been previously treated with [facility] who no long er takes her insurance. No previous injections or physical therapy. Her pain is felt on the lateral hip. She ambulates with a cane. She takes Tylenol and occasional Tylenol with Codeine. 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 Patient reports that she has had ongoing pain for a few years now. She has been previously treated with [facility] who no longer takes her insurance. No previous injections or physical therapy. Her pain is felt on the lateral hip. She ambulates with a cane. She takes Tylenol and occasional Tylenol with Codeine. She can not walk without pain. She has a cane. She feels quality of her life is severely diminished. She feels the hip pain is contributing to her depression. [facility] Medical History (Updated 12/09/24 @ 11:30 by Dennise Colindres PA-C) Nicotine dependence, cigarettes, uncomplicated History of mammogram Thyroid cancer ANA (obstructive sleep apnea) Pulmonary nodules COPD (chronic obstructive pulmonary disease) Surgical History (Updated 12/15/24 @ 09:43 by Leia Jc) History of tonsillectomy History of partial thyroidectomy History of colonoscopy (~06/08/18) Previous back surgery H/O laminectomy History of bowel resection Family History Sister Depression Brother Depression HTN (hypertension) Father HTN (hypertension) Heart disease Paternal Grandfather HTN (hypertension) Brother Heart disease Other FH: mental illness Social History (Updated 12/09/24 @ 11:30 by Dennise Colindres PA-C) Housing: House Alcohol intake: current Patient Tobacco Use Status: Current everyday Tobacco user Tobacco use type: Cigarette Cigarettes Per Day: 4 Years Smoked: (onset 15yo, 1/2-1ppd x 54yrs, now <1/4ppd - 35PYH) e-Cigarette/Vaping Use: Never Used service: No Current occupational status: retired Cognitive needs: No Hearing needs: Yes (need hearing checked) Vision needs: Yes (glasses) Physical Exam Vital Signs: BMI result Body Mass Index 19.3 Extrem Other: 90 degrees of hip flexion. Minimal internal rotation and severe pain with impingement testing. 2+ dorsalis pedis pulse and firing EHL/tib ant/gastrocnemius. Results Reviewed Results Reviewed: I personally reviewed relevant radiographs. Severe osteoarthritis right hip Assessment & Plan Assessment & Plan (1) Osteoarthritis of right hip: Code(s): M16.11 - Unilateral primary osteoarthritis, right hip Category: Medical Plan: This is a 69-year-old woman with severe osteoarthritis of the right hip. She has been limping alone and in pain states she was Ms. Diagnosed with stage IV metastatic cancer and this contributed to her acceptance of pain into her current lack of employment. I reviewed her x-rays with her. Based on her x- rays in her history and her clinical exam I recommend a right hip replacement. I discussed this procedure with her in detail including the approach outcomes as well as risks, benefits and alternatives. Explained the risk of infection, fracture, dislocation as well as the need for the surgery and aseptic loosening as well as medical complications associated with surgery including pneumonia, mi blood clots, pulmonary emboli among others. She expressed understanding and would like to proceed forward accordingly. She has a light smoker. She states she is trying to quit. I think less than 3 cigarettes a day is acceptable but more than that the risks may not be justifiable. I discussed this with her. She expressed understanding. She also has some dental work to undergo. She does not have any decay but she is getting implants. I think it is reasonable do this prior to arthroplasty. I introduced her to our nurse navigator proceed forward accordingly. Orders: Orders XR pelvis 1-2V Today M25.559 - Pain in unspecified hip Coding Level of Care Code New Pt Level 4 (17871) Diagnoses Osteoarthritis of right hip M16.11
[2024-12-26 10:57] VITALS: BMI 19.3
== END 2024-12-26 12:30 | disposition home or self-care (01) ==
LOC: HO.HOS 10:47
PROVIDERS: PCP Nurse Practitioner Family; Visit Provider Orthopaedic Surgery
DX: M16.11 Unilateral primary osteoarthritis, right hip (principal)
CPT/HCPCS: 99204

== ENCOUNTER → 2024-12-26 10:50 | Outpatient (BNV) | payer MEDICARE, SELFPAY | PROVIDERS: Visit Provider Radiology Diagnostic Radiology | DX: M16.12 Unilateral primary osteoarthritis, left hip (principal) | CPT/HCPCS: 72170 ==

== ENCOUNTER 2025-01-20 11:40 | Outpatient (AMB) | payer MEDICARE, SELFPAY ==
--- NOTE | 2025-01-20 11:42 | A.OFFPC_ITS ---
Vital Signs 01/20/25 11:52 Height 5 ft 3 in Weight 107 lb 4 oz BMI 19.0 BP 122/70 Blood Pressure Location Lt brachial Position Sitting Respiration 12 Pulse 66 Pulse Source Pulse Oximeter Temp 97.6 F Temp Source Oral Pulse Oximetry (%) 99 Oxygen Delivery Method Room Air Intake Visit Reasons: Pre-Op appt. She is having oral surgery. Intake Note: Pre op for oral surgery Director Of Instruction Required: No Allergies Penicillins [PENICILLINS] Allergy (Unknown, Verified 01/20/25 11:43) ITCHING Medication List - Last Reconciled 01/20/25 by Rosa M Mason, [facility]- fluticasone propion-salmeterol 113-14 mcg/actuation (AirDuo RespiClick) 1 inh inhalation Q12H 30 days losartan 100 mg PO DAILY mecobalamin (vitamin B12) (B12 Active) 2,000 mcg (2 x 1,000 mcg) PO DAILY nifedipine ER mg PO sertraline 100 mg PO BID tramadol 50 mg PO DAILY PRN Tobacco use date assessed: 01/20/25 Fall risk assessment: No Falls in past year Last assessed Fall Risk: 01/20/25 Dental Screening Dental Screen Date: 01/20/25 Did you have a dental visit in the last 12 months?: Yes Did you have a dental problem in the last 6 months where you did not have access to dental care?: No Was dental information given to patient?: Patient has dentist HPI HPI Comments History of Present Illness Details 69 y/o f with benign lipid adenoma bilat , R renal cyst, uterine fibroid, severe atherosclerotic calcification of the aorta and moderate to severe calcifications of the iliofemoral vessels (CT abd pelvis 01/2024), spinal DJD, bilat lung nodule, current smoker, COPD, thyroid ca, ANA, HTN, hx of renal stones, MDD , osteopenia, s/p L arm fracture, b 12 def s/p hemithyroidectomy 2020, bowel resection, S/p bilat CTS, Multiple teeth extractions Fmhx: Mom brain ca 29, dad mi 62, brother skin ca, sister CVA, Sz 55, family hx of etoh abuse, sister of etoh abuse sp liver transplants DME: Using [facility] 10/2024 DEXA 10/2024 Osteopenia The patient is a 69-year-old female presenting with management of multiple chronic conditions. - The patient is actively managing her h ypertension with Nifedipine and Losartan after discontinuing Labetalol due to decreased heart rates. She reports monitoring her blood pressure at home, - History ofR hip osteoarthritis with p lanned surgical intervention following dental surgery - she has not been cleared; Needs to see cards and pulm first . - Recent pulmonary consult with ongoing COPD management and future follow-up. 01/26/25 Dr S[facility] Message sent today - Experienced significant cardiac awaren ess symptoms, prompting on-site EKG evaluation. As I went to do the physical exam, I noted irregular heart rhythm, normal rate, bounding. Pt states sudden onset onset with dizziness and a fullness sensation in her ears to the point she is having a hard time hearing; is not hearing her pulse in her ears. Describing the palpitations in her chest as cardiac awareness. She reports episodes of palps in the past but this is the worst it has been. She is not having any chest pain. Review of Systems - General: Reports dizziness. - Cardiovascular: Reports cardiac awaren ess, denies chest pain. - Respiratory: Denies shortness of breat h, plans routine COPD follow-up. - Musculoskeletal: Reports balance issue s, confirms hip pain. - Neurological: Reports dizziness, denie s headaches. - ENT: Reports hearing changes, both ear s blocked. - Psychiatric: Reports stable mood on cu rrent medications. Exam Awake alert, frail LS dim throughout No edema BLE Mood and affect appropriate EKG performed which showed Marked sinus arrythmia, PACs, Nonspecific ST-T wave changes. Reviewed w/ Dr England. Discussion Notes Given the patients history and presentation today, the decision was made to send to ED for eval and treat. Ambulance transfer is recommended. She declined stating she cannot leave her car here. She is accepting of the risks up to and including as well as harm to others if something happens while she is driving. She will proceed [place] [facility]. A hand off report has been called, to Reena. I told her if her condition worsens as she is driving, she needs to cake puller immediatley and call 911. She verbalized agreement. I will f/u with her once acute care workup is done. Total time spent caring for the patient today was 70 minutes. This includes time spent before the visit reviewing the chart, time spent during the visit, and time spent after the visit on documentation, reviewing laboratory results, diagnostic imaging, medications, performing a medically necessary evaluation, counseling on diagnoses, care coordination, ordering appropriate tests, ordering appropriate medications, review of tests performed by other providers, reporting test results with the patient, communication with other healthcare providers. [facility] Medical History (Updated 01/20/25 @ 13:18 by Rosa M Mason [facility]) COPD (chronic obstructive pulmonary disease) History of mammogram Nicotine dependence, cigarettes, uncomplicated ANA (obstructive sleep apnea) Pulmonary nodules Thyroid cancer Surgical History (Updated 12/15/24 @ 09:43 by Leia Jc) H/O laminectomy History of bowel resection History of colonoscopy (~06/08/18) History of partial thyroidectomy History of tonsillectomy Previous back surgery Family History Sister Depression Brother Depression HTN (hypertension) Father HTN (hypertension) Heart disease Paternal Grandfather HTN (hypertension) Brother Heart disease Other FH: mental illness Social History (Updated 12/09/24 @ 11:30 by Dennise Colindres PA-C) Housing: House Alcohol intake: current Patient Tobacco Use Status: Current everyday Tobacco user Tobacco use type: Cigarette Cigarettes Per Day: 4 Years Smoked: (onset 15yo, 1/2-1ppd x 54yrs, now <1/4ppd - 35PYH) e-Cigarette/Vaping Use: Never Used service: No Current occupational status: retired Cognitive needs: No Hearing needs: Yes (need hearing checked) Vision needs: Yes (glasses) Questionnaire Thrive Questionnaire Date Thrive assessed: 09/13/24 I am a: Patient What is your living situation today?: I have a steady place to live Within the past 12 months, did the food you bought not last and you didn't have the money to get more?: Never true Within the past 12 months, did you worry whether your food would run out before you got money to buy more?: Never true Do you have trouble paying for medicines?: Yes Do you have trouble getting transportation to medical appointments?: No Do you have trouble paying your heating and electricity bill?: Yes Do you have trouble taking care of your child, family member or friend?: No Do you have trouble with day-to-day activities such as bathing, preparing meals, shopping, managing finances, etc.?: I choose not to answer this question Are you currently unemployed and looking for a job?: No Are you interested in more education?: Yes Please select the resources that you would like help with: Paying for medicine Currently or been in a relationship where the following occur: No concerns reported THRIVE Score: 1 VIGNESH-7 AMB Questionnaire VIGNESH-7 Date VIGNESH - 7 assessed: 11/10/24 Source: Developed by Drs. Robert Rothman, Alexandria Frausto, Cristino Miller and colleagues, with an educational susy from [employer]. Physical exam (Primary Care) Vital Signs: Last Vital Signs Temp 97.6 F 01/20/25 11:52 Pulse 66 01/20/25 11:52 Resp 12 01/20/25 11:52 BP 122/70 01/20/25 11:52 Pulse Ox 99 01/20/25 11:52 Oxygen Delivery Method Room Air 01/20/25 11:52 BMI result Body Mass Index 19.0 Tobacco/Smoking Status: Tobacco use Status Tobacco use date assessed 01/20/25 01/20/25 11:45 Patient Tobacco Use Status Current everyday Tobacco 01/20/25 11:42 Tobacco use type Cigarette 01/20/25 11:42 e-Cigarette/Vaping Use Never Used 01/20/25 11:42 Thrive Assessment: Date of Thrive Assessment Date Thrive assessed 09/13/24 01/20/25 11:42 Currently or been in a relationship where the following occur: No concerns reported Office Procedures EKG [id number]-[id number], Complete Coding Level of Care Code Est Pt Level 5 (94575) Complex EM visit Add On G2211 Diagnoses Heart palpitations R00.2 Abnormal EKG R94.31 Coronary artery disease involving enterprise coronary artery of enterprise heart without angina pectoris I25.10 Coronary Disease-Associated Artery/Lesion type: enterprise artery [place] vs. transplanted heart: enterprise heart Associated angina: without angina Simple chronic bronchitis J41.0 COPD type: chronic bronchitis Chronic bronchitis type: simple Primary hypertension I10 Hypertension type: primary hypertension Nicotine dependence, cigarettes, uncomplicated F17.210 B12 deficiency E53.8 CPT Codes EKG - CPT: 13873-[id number], Complete ([id number]) PROLONG OUTPT/OFFICE VIS - G2212 Assessment & Plan Assessment & Plan (1) Heart palpitations: Code(s): R00.2 - Palpitations Category: Medical (2) Abnormal EKG: Code(s): R94.31 - Abnormal electrocardiogram [ECG] [EKG] Category: Medical (3) CAD (coronary artery disease): Comment: severe atherosclerotic calcification of the aorta and moderate to severe calcifications of the iliofemoral vessels (CT abd pelvis 2023) Code(s): I25.10 - Atherosclerotic heart disease of enterprise coronary artery without angina pectoris Category: Medical Qualifiers: Coronary Disease-Associated Artery/Lesion type: enterprise artery [place] vs. transplanted heart: enterprise heart Associated angina: without angina Qualified Code(s): I25.10 - Atherosclerotic heart disease of enterprise coronary artery without angina pectoris (4) COPD (chronic obstructive pulmonary disease): Code(s): J44.9 - Chronic obstructive pulmonary disease, unspecified Category: Medical Qualifiers: COPD type: chronic bronchitis Chronic bronchitis type: simple Qualified Code(s): J41.0 - Simple chronic bronchitis (5) HTN (hypertension): Code(s): I10 - Essential (primary) hypertension Category: Medical Qualifiers: Hypertension type: primary hypertension Qualified Code(s): I10 - Essential (primary) hypertension (6) Nicotine dependence, cigarettes, uncomplicated: Comment: (onset 15yo, 1/2-1ppd x 52yrs, now <1/4ppd - 35PYH) Code(s): F17.210 - Nicotine dependence, cigarettes, uncomplicated Category: Medical (7) B12 deficiency: Code(s): E53.8 - Deficiency of other specified B group vitamins Category: Medical Plan . Orders: Orders Vitamin B12 and Folate Today E53.8 - Deficiency of other specified B group vitamins, I10 - Essential (primary) hypertension Comprehensive Met. Panel Today E53.8 - Deficiency of other specified B group vitamins, I10 - Essential (primary) hypertension Medications: Changed From nifedipine ER PO To nifedipine ER 30 mg PO DAILY 90 tabs 2RF Refilled losartan 100 mg PO DAILY 90 tabs 2RF
[2025-01-20 11:52] VITALS: BP 122/70; PULSE 66; RESP 12; TEMP 36.4; O2SAT 99; BMI 19.0
--- OUTSIDE RECORDS SUMMARY | 2025-01-20 12:39 | XMS_ITS | Data Portability ---
Author Organization [facility], [facility] Address [address] [place] [address] Care Team Providers Care Fleet Administrative Assistant Name Role Phone EVERARDO VAZQUEZ Electric Train Driver EMELIA ELIZABETH Primary Care Provider DEANNA JIMENEZ Orthopedist PARVEEN DELVALLE, [employer] Inspector Assessment Encounter Date Assessment Date Assessment LastModified [...] recorded. Lab TSH, serum or plasma 2023 [facility], [address] [place] [address], [address], 12:31:07 T4, free, serum 2023 024 [facility], [address] [place] [address], [address]23[address], 11:52:26 T3, total, serum 2023 [facility], [address] [place] [address], [address]28[address], 11:09:06 FSH (follicle-s timulating hormone), serum 2023 024 [facility], [address] [place] [address], 40[address], 11:09:07 igf-1 (insulin-li ke growth factor), serum 2023 024 [facility], [address] [place] [address], 17[address], 14:43:26 cortisol, am, serum 2023 024 [facility], [address] [place] [address], 08183, 14:43:25 acth, plasma 2023 024 [facility], [address] [place] [address], [address]79[address], 14:43:27 prolactin, serum 2023 024 [facility], [address] [place] [address], 92848, 4 14:43:27 lipid panel, serum 2023 024 [facility], [address] [place] [address], [address], 4 11:46:37 CBC 2023 024 [facility], [address] [place] [address], [address], 4 15:23:54 TSH, serum or plasma 2023 024 [facility], [address] [place] [address], [address], 4 15:23:40 BMP, serum or plasma 2023 024 [facility], [address] [place] [address], 20[address], 4 11:46:37 urinalysis, dipstick 2022 023 [facility], [address] [place] [address], [address], 3 13:57:42 Referral None recorded. Procedures None recorded. Surgeries None recorded. Imaging MAMMO, screening, tomosynthes is, bilateral 2022 023 [facility]), [address], [place], [address], 3 16:06:19 LDCT, chest, for lung cancer screening - Please enroll this patient in the LDCT Lung Cancer Screening Program (for ordering, follow up and shared decision making)h as hx known nodules. Dr. Leavitt 09/04/212022 023 [facility], [address] [place], [address], 3 17:26:04 Medication Orders albuterol sulfate HFA 90 mcg/actuati on aerosol inhaler 2023 024 MICHELE [facility], [address] [place] [address], [address], [place], [place], [id number], 4 14:18:20 clotrimazol e 10 mg darian 2022 023 [email or web address] [facility], [address] [place], [address], [place], [place], [id number], 4 14:14:41 Patient TargetsNo targets recorded. Patient Instructions Encounter Date Encounter Id Patient Instructions Last Modified By Organization Details Last Modified Time 01/01/2023 [id number] high cholesterol lifestyle changes Not available 01/01/2023 14:40:56 advance directives: care instructions Not available 01/01/2023 14:40:57 preventing falls: care instructions Not available 01/01/2023 14:40:57 hearing loss: care instructions Not available 01/01/2023 14:40:56 well visit, over 65: care instructions Not available 01/01/2023 14:40:57 05/05/2024 [id number] - Get labs done before 8AM. [email or web address] Not available 05/05/2024 12:46:40 6 months/ 40 minutes Counseling done Contemplating quitting Goal for follow up visit My Health To Do List go to [facility] [email or web address] or call contact [email or web address] Counseling done Goal for follow up visit My Health To Do List Not available 05/03/2024 09:03:04 06/23/2024 [id number] [email or web address] Not available 06/26/2024 18:30:45 6 months/ 40 minutes Counseling done Contemplating quitting Goal for follow up visit My Health To Do List go to [facility] [email or web address] or call contact [email or web address] Counseling done Goal for follow up visit My Health To Do List [email or web address] Not available 06/23/2024 15:00:31 Reason for [...] furth er confi rmati on Not Available [address], [address], 12/25/2022 16:23:00 12/26/19 23 12/25/2022 HGB A1C estimated average glucose 102.5 mg/dL Not Available [address], [address], 12/25/2022 16:23:00 12/26/19 23 12/25/2022 VITAM IN [...] er than 30 ng/mL . Not Available [address], [address], 12/25/2022 16:26:10 12/26/1912/25/2022 TSH TSH 1.79 uIU/m L 0.50-6 .00 The Ameri can Colle ge of Endoc rinol ogy and Ameri can Thyro id Assoc iatio n recom mend goal TSH value s betwe en 0.4-4 .0 mIU/m L. Not Available [address], [address], 12/25/2022 16:26:15 12/26/19 23 12/25/2022 BASIC METAB OLIC PANEL glucose 120 mg/dL 70-100 high Not Available [address], [address], 12/25/2022 16:33:09 12/26/19 23 12/25/2022 BASIC METAB OLIC PANEL BUN 7 mg/dL 7-18 Not Available [address], [address], 12/25/2022 16:33:09 12/26/19 23 12/25/2022 BASIC METAB OLIC PANEL creatinine 0.8 mg/dL 0.8-1. 3 Not Available [address], [address], 12/25/2022 16:33:09 12/26/19 23 12/25/2022 BASIC METAB OLIC PANEL B/C 8.8 ratio Not Available [address], [address], 12/25/2022 16:33:09 12/26/1912/25/2022 BASIC METAB OLIC PANEL GFR >=60ML /MIN [...] Colla borat ion (CKD- EPI) Equat ion (Sraahi r et. al 2020) as recom haris d by the [facility] . eGFR is based on age, serum creat inine , and sex. CKD-E PI does not calcu late eGFR by race, does not apply to child jessica (age <18 years ), and shoul d not be used in pregn junaid. Not Available [address], [address], 12/25/2022 16:33:09 12/26/19 23 12/25/2022 BASIC METAB OLIC PANEL sodium 141 mmol/ L 136-14 5 Not Available [address], [address], 12/25/2022 16:33:09 12/26/19 23 12/25/2022 BASIC METAB OLIC PANEL potassium 3.6 mmol/ L 3.5-5. 1 Not Available [address], [address]98, 12/25/2022 16:33:09 12/26/19 23 12/25/2022 BASIC METAB OLIC PANEL chloride 98 mmol/ L 96-107 Not Available [address], [address], 12/25/2022 16:33:09 12/26/19 23 12/25/2022 BASIC METAB OLIC PANEL anion gap 11.7 5.0-15 .0 Not Available [address], [address]107, 12/25/2022 16:33:09 12/26/19 23 12/25/2022 BASIC METAB OLIC PANEL CO2 31 mmol/ L 21-32 Not Available [address], [address]25, 12/25/2022 16:33:09 12/26/19 23 12/25/2022 BASIC METAB OLIC PANEL calcium 9.4 mg/dL 8.5-10 .3 Not Available [address], [address]67, 12/25/2022 16:33:09 12/26/19 23 12/25/2022 LIPID PANEL cholesterol 178 mg/dL <200 mg/dl Rola able 200-2 39 mg/dl Borde rline High >240 mg/dl High Not Available [address], [address], 12/25/2022 16:33:11 12/26/19 23 12/25/2022 LIPID PANEL triglyceride s 76 mg/dL <150 mg/dL Mercedes l 150-1 99 mg/dL Borde rline High 200-4 99 mg/dL High >500 mg/dL Very High Not Available [address], [address], 12/25/2022 16:33:11 12/26/19 23 12/25/2022 LIPID PANEL direct HDL 80 mg/dL <40 mg/dl - Major Risk for CHD >60 mg/dl - Negat wesley Risk for CHD Not Available [address], [address], 12/25/2022 16:33:11 12/26/19 23 12/25/2022 DIREC T [...] with 0-1 risk facto r is not neces liang. Not Available [address], [address], 12/25/2022 16:33:14 01/02/2001/01/2023 POC UA glu UA NEGATI VE Not Available [facility] [address] [place] [address], [address], 01/01/2023 13:57:42 01/02/20 23 01/01/2023 POC UA clarity UA CLEAR Not Available [facility] [address] [place] [address], [address]851, 01/01/2023 13:57:42 01/02/20 23 01/01/2023 POC UA uro UA 0.2000 Not Available [facility] [address] [place] [address], [address]69[address], 01/01/2023 13:57:42 01/02/20 23 01/01/2023 POC UA ket UA NEGATI VE Not Available [facility] [address] [place] [address], 93558, 01/01/2023 13:57:42 01/02/20 23 01/01/2023 POC UA pro UA NEGATI VE Not Available [facility] [address] [place] [address], 89574, 01/01/2023 13:57:42 01/02/20 23 01/01/2023 POC UA nit UA NEGATI VE Not Available [facility] [address] [place] [address], [address]281, 01/01/2023 13:57:42 01/02/20 23 01/01/2023 POC UA rebekah UA NEGATI VE Not Available [facility] [address] [place] [address], 19281, 01/01/2023 13:57:42 01/02/20 23 01/01/2023 POC UA pH UA 7.0000 Not Available [facility] [address] [place] [address], 88939, 01/01/2023 13:57:42 01/02/20 23 01/01/2023 POC UA SG UA 1.0200 Not Available [facility] [address] [place] [address], 95654, 01/01/2023 13:57:42 01/02/20 23 01/01/2023 POC UA color UA YELLOW Not Available [facility] [address] [place] [address], 13208, 01/01/2023 13:57:42 01/02/20 23 01/01/2023 POC UA blo UA NEGATI VE Not Available [facility] [address] [place] [address], 78979, 01/01/2023 13:57:42 01/02/20 23 01/01/2023 POC UA bren UA NEGATI VE Not Available [facility] [address] [place] [address], 77903, 01/01/2023 13:57:42 02/05/20 24 02/05/2024 HGB A1C [...] furth er confi rmati on Not Available [address], [address], 02/05/2024 15:16:31 02/05/20 24 02/05/2024 HGB A1C estimated average glucose 105.4 mg/dL Not Available [address], 50821, 02/05/2024 15:16:31 02/05/20 24 02/05/2024 CBC WBC 7.83 K/? ? ?L 3.98-1 0.04 Not Available [address], 7[address]68, 02/05/2024 15:23:54 02/05/20 24 02/05/2024 CBC RBC 4.36 M/? ? ?L 3.93-5 .22 Not Available [address], [address]707, 02/05/2024 15:23:54 02/05/20 24 02/05/2024 CBC HGB 14.3 g/dL 11.2-1 5.7 Not Available [address], 24977, 02/05/2024 15:23:54 02/05/20 24 02/05/2024 CBC HCT 41.8 % 34.1-4 4.9 Not Available [address], 91809, 02/05/2024 15:23:54 02/05/20 24 02/05/2024 CBC MCV 95.9 fL 79.4-9 4.8 high Not Available [address], 30394, 02/05/2024 15:23:54 02/05/20 24 02/05/2024 CBC MCH 32.8 pg 25.6-3 2.2 high Not Available [address], 15513, 02/05/2024 15:23:54 02/05/20 24 02/05/2024 CBC MCHC 34.2 g/dL 32.2-3 5.5 Not Available [address], 81330, 02/05/2024 15:23:54 02/05/20 24 02/05/2024 CBC plt 225 K/? ? ?L 182-36 9 Not Available [address], 6[address], 02/05/2024 15:23:54 02/05/20 24 02/05/2024 CBC MPV 10.8 fL 9.4-12 .3 Not Available [address], 85629, 02/05/2024 15:23:54 02/05/20 24 02/05/2024 CBC neut% 71.8 % 34.0-7 1.1 high Not Available [address], 64256, 02/05/2024 15:23:54 02/05/20 24 02/05/2024 CBC neut# 5.62 1.56-6 .13 Not Available [address], 77438, 02/05/2024 15:23:54 02/05/20 24 02/05/2024 CBC lymph % 20.9 % 19.3-5 1.7 Not Available [address], [address]07, 02/05/2024 15:23:54 02/05/20 24 02/05/2024 CBC lymph # 1.64 K/? ? ?L 1.18-3 .74 Not Available [address], 6[address]31, 02/05/2024 15:23:54 02/05/20 24 02/05/2024 CBC mono% 5.6 % 4.7-12 .5 Not Available [address], 25702, 02/05/2024 15:23:54 02/05/20 24 02/05/2024 CBC mono# 0.44 0.24-0 .56 Not Available [address], 44571, 02/05/2024 15:23:54 02/05/20 24 02/05/2024 CBC eo% 0.8 % 0.7-5. 8 Not Available [address], 99587, 02/05/2024 15:23:54 02/05/20 24 02/05/2024 CBC eo# 0.06 0.04-0 .36 Not Available [address], 64414, 02/05/2024 15:23:54 02/05/20 24 02/05/2024 CBC baso% 0.6 % 0.1-1. 2 Not Available [address], 87527, 02/05/2024 15:23:54 02/05/20 24 02/05/2024 CBC baso# 0.05 0.00-0 .08 Not Available [address], 23962, 02/05/2024 15:23:54 02/05/20 24 02/05/2024 CBC RDW-CV 12.3 % 11.7-1 4.4 Not Available [address], 98380, 02/05/2024 15:23:54 02/05/20 24 02/05/2024 CBC Ig% 0.300 % 0.000- 1.500 Ig % >0.5 Indic ates possi ble Left Shift Not Available [address], 83738, 02/05/2024 15:23:54 02/05/20 24 02/05/2024 CBC Ig# 0.020 0.000- 0.093 Not Available [address], 60998, 02/05/2024 15:23:54 02/05/20 24 02/05/2024 CBC NRBC% 0.0 % 0.0-0. 2 Not Available [address], 50952, 02/05/2024 15:23:54 02/05/20 24 02/05/2024 CBC NRBC# 0.000 0.000- 0.012 Not Available [address], [address]24, 02/05/2024 15:23:54 02/05/20 24 02/08/2024 BASIC METAB OLIC PANEL glucose 113 mg/dL 70-100 high Not Available [address], 51508, 02/08/2024 11:46:36 02/05/20 24 02/08/2024 BASIC METAB OLIC PANEL BUN 16 mg/dL 7-18 Not Available [address], 88943, 02/08/2024 11:46:36 02/05/20 24 02/08/2024 BASIC METAB OLIC PANEL creatinine 0.7 mg/dL 0.8-1. 3 low Not Available [address], 66[address], 02/08/2024 11:46:36 02/05/20 24 02/08/2024 BASIC METAB OLIC PANEL B/C 22.9 ratio Not Available [address], 13005, 02/08/2024 11:46:36 02/05/20 24 02/08/2024 BASIC METAB [...] be used in pregn junaid. Not Available [address], [address], 02/08/2024 11:46:36 02/05/20 24 02/08/2024 BASIC METAB OLIC PANEL sodium 142 mmol/ L 136-14 5 Not Available [address], 78[address], 02/08/2024 11:46:36 02/05/20 24 02/08/2024 BASIC METAB OLIC PANEL potassium 4.5 mmol/ L 3.5-5. 1 Not Available [address], 63456, 02/08/2024 11:46:36 02/05/20 24 02/08/2024 BASIC METAB OLIC PANEL chloride 102 mmol/ L 96-107 Not Available [address], 25[address], 02/08/2024 11:46:36 02/05/20 24 02/08/2024 BASIC METAB OLIC PANEL anion gap 11.9 5.0-15 .0 Not Available [address], 03541, 02/08/2024 11:46:36 02/05/20 24 02/08/2024 BASIC METAB OLIC PANEL CO2 28 mmol/ L 21-32 Not Available [address], 04289, 02/08/2024 11:46:36 02/05/20 24 02/08/2024 BASIC METAB OLIC PANEL calcium 9.5 mg/dL 8.5-10 .3 Not Available [address], [address], 02/08/2024 11:46:36 02/05/20 24 02/08/2024 LIPID PANEL cholesterol 204 mg/dL <200 mg/dl Rola able 200-2 39 mg/dl Borde rline High >240 mg/dl High Not Available [address], [address], 02/08/2024 11:46:37 02/05/20 24 02/08/2024 LIPID PANEL triglyceride s 63 mg/dL <150 mg/dL Mercedes l 150-1 99 mg/dL Borde rline High 200-4 99 mg/dL High >500 mg/dL Very High Not Available [address], [address], 02/08/2024 11:46:37 02/05/20 24 02/08/2024 LIPID PANEL direct HDL 72 mg/dL <40 mg/dl - Major Risk for CHD >60 mg/dl - Negat wesley Risk for CHD Not Available [address], [address], 02/08/2024 11:46:37 02/05/20 24 02/08/2024 DIREC T [...] with 0-1 risk facto r is not neckeyur liang. Not Available [address], [address], 02/08/2024 11:46:38 02/05/20 24 02/08/2024 TSH TSH 1.32 uIU/m L 0.50-6 .00 The Ameri can Colle ge of Endoc rinol ogy and Ameri can Thyro id Assoc iatio n recom mend goal TSH value s betwe en 0.4-4 .0 mIU/m L. Not Available [address], [address], 02/08/2024 15:23:40 02/29/20 24 03/01/2024 FREE T4 free T4 0.71 NG/dL 0.75-1 .54 low Not Available [address], [address], 03/01/2024 10:48:50 02/29/20 24 03/01/2024 VITAM IN [...] er than 30 ng/mL . Not Available [address], [address], 03/01/2024 10:55:50 02/29/20 24 03/01/2024 TSH TSH 2.30 uIU/m L 0.50-6 .00 The Ameri can Colle ge of Endoc rinol ogy and Ameri can Thyro id Assoc iatio n recom mend goal TSH value s betwe en 0.4-4 .0 mIU/m L. Not Available [address], [address], 03/01/2024 11:03:38 05/31/20 24 05/31/2024 FREE T4 free T4 0.80 NG/dL 0.75-1 .54 Not Available [address], 7[address], 05/31/2024 11:52:26 05/31/20 24 05/31/2024 TSH TSH 4.12 uIU/m L 0.50-6 .00 The Ameri can Colle ge of Endoc rinol ogy and Ameri can Thyro id Assoc iatio n recom mend goal TSH value s betwe en 0.4-4 .0 mIU/m L. Not Available [address], [address]9955, 05/31/2024 12:31:07 05/31/20 24 06/01/2024 TOTAL T3 total T3 1.28 NG/mL 0.70-1 .70 Not Available [address], [address], 06/01/2024 11:09:06 05/31/20 24 06/01/2024 FSH FSH 70.6 mIU/m L Male: 1.0 - 42.5 mIU/m L Femal e Ovula ting: Folli cular Phase : 2.7 - 15.4 mIU/m L Peak: 3.9 - 22.0 mIU/m L Lutea l Phase : 1.0 - 14.4 mIU/m L Postm enopa usal: 25.0 - 160.0 mIU/m L Not Available [address], [address], 06/01/2024 11:09:07 05/31/20 24 06/01/2024 LIPID PANEL cholesterol 219 mg/dL <200 mg/dl Rola able 200-2 39 mg/dl Borde rline High >240 mg/dl High Not Available [address], [address]686, 06/01/2024 14:38:40 05/31/20 24 06/01/2024 LIPID PANEL triglyceride s 150 mg/dL <150 mg/dL Mercedes l 150-1 99 mg/dL Borde rline High 200-4 99 mg/dL High >500 mg/dL Very High Not Available [address], [address], 06/01/2024 14:38:40 05/31/20 24 06/01/2024 LIPID PANEL direct HDL 70 mg/dL <40 mg/dl - Major Risk for CHD >60 mg/dl - Negat wesley Risk for CHD Not Available [address], [address], 06/01/2024 14:38:40 05/31/20 24 06/01/2024 LDL - [...] r is not braxton tavera. Not Available [address], [address], 06/01/2024 14:38:42 05/31/2006/01/2024 BASIC METAB OLIC PANEL glucose 104 mg/dL 70-100 high Not Available [address], [address], 06/01/2024 15:00:52 05/31/2006/01/2024 BASIC METAB OLIC PANEL BUN 14 mg/dL 7-18 Not Available [address], 6[address]79, 06/01/2024 15:00:52 05/31/2006/01/2024 BASIC METAB OLIC PANEL creatinine 0.8 mg/dL 0.8-1. 3 Not Available [address], [address]8856, 06/01/2024 15:00:52 05/31/2006/01/2024 BASIC METAB OLIC PANEL B/C 17.5 ratio Not Available [address], [address], 06/01/2024 15:00:52 05/31/2006/01/2024 BASIC METAB OLIC PANEL GFR >=60ML /MIN [...] 2020) as recom [facility]is d [facility] . eGFR is based on age, serum creat inine , and sex. CKD-E PI does not calcu late eGFR by race, does not apply to child jessica (age <18 years ), and shoul d not be used in pregn junaid. Not Available [address], [address], 06/01/2024 15:00:52 05/31/2006/01/2024 BASIC METAB OLIC PANEL sodium 144 mmol/ L 136-14 5 Not Available [address], [address], 06/01/2024 15:00:52 05/31/2006/01/2024 BASIC METAB OLIC PANEL potassium 4.1 mmol/ L 3.5-5. 1 Not Available [address], [address], 06/01/2024 15:00:52 05/31/2006/01/2024 BASIC METAB OLIC PANEL chloride 104 mmol/ L 96-107 Not Available [address], [address]99, 06/01/2024 15:00:52 05/31/2006/01/2024 BASIC METAB OLIC PANEL anion gap 9.8 5.0-15 .0 Not Available [address], [address]64, 06/01/2024 15:00:52 05/31/2006/01/2024 BASIC METAB OLIC PANEL CO2 30 mmol/ L 21-32 Not Available [address], 9[address], 06/01/2024 15:00:52 05/31/2006/01/2024 BASIC METAB OLIC PANEL calcium 9.7 mg/dL 8.5-10 .3 Not Available [address], [address]47, 06/01/2024 15:00:52 05/31/20 24 06/07/2024 IGF 1, LC/MS igf 1, lc/MS 129 NG/mL 34-245 Not Available [facility] [address], [address], 06/07/2024 14:43:26 05/31/20 24 06/07/2024 IGF 1, LC/MS Z score (female) 0.4 SD -2.0 - +2.0 This test was devel oped and its arnold tical perfo rmanc e kamari cteri stics have been deter mined by [facility]. It has not been clear ed or appro ariel by FDA. This assay has been valid ated pursu ant to the CLIA regul ation s and is used for clini laney purpo ses. Not Available [facility] [address], [address], 06/07/2024 14:43:26 05/31/20 24 06/07/2024 ACTH, PLASM A acth, plasma 18 pg/mL 6-50 Refer ence range appli es only to speci mens colle cted betwe en 7am-1 0am. Not Available [facility] [address], [address], 06/07/2024 14:43:26 05/31/20 24 06/07/2024 PROLA CTIN prolactin 9.4 NG/mL normal Refer ence Range Femal es Non-p regna nt 3.0-3 0.0 Pregn ant 10.0- 209.0 Postm enopa usal 2.0-2 0.0 Not Available [facility] [address], [address], 06/07/2024 14:43:27 04/24/20 23 04/24/2023 LDCT, chest , for lung cance r scree luisito No observ ation record ed. [facility] [address] [facility], [place], [address], 04/28/2023 17:05:43 04/27/20 23 04/27/2023 MAMMO , [...] summar y was mailed to your patien dre indica ting the result s and recomm [...] 17 PM Reji francis Physic frank: Jai Montaño ms [facility] ([facility]) [address], [place], [address], 04/27/2023 16:30:52 Result Notes Documentation Provider Name and Address Organization Details Recorded Time Mammo, Screening, Tomosynthesis, Bilateral : MAMMO, SCREEN, WILLIAM, BILAT: 04/27/2023. BI-RADS: 1 CLINICAL: 68-year old Female for Bilateral Screening Mammogram. No personal or first-degree family history of breast cancer. The patient had a prior right breast biopsy. PRIOR EXAMS: Reviewed previous images from 2021, 2020, 2018 and 2017. MAMMOGRAPHY TECHNIQUE: 3D mammography (tomosynthesis) and 2D mammography (C-view) images are generated. Images reviewed with a CAD system. DENSITY C. Heterogeneously dense, which may obscure small masses. MAMMOGRAPHY FINDINGS Bilateral: No suspicious mass, asymmetry, microcalcification, or other abnormality seen. CONCLUSION * No evidence of malignancy. RECOMMENDATIONS Bilateral * Annual screening mammography. ADMINISTRATIVE: A lay summary was mailed to your patient indicating the results and recommendations for follow-up. OVERALL ASSESSMENT CATEGORY BI-RADS-1: Negative. The [employer] recommends annual screening mammography beginning at age 40 for women with average risk of breast cancer. ELECTRONICALLY SIGNED: Ronald Frausto M.D. on 04/27/2023 at 04:05:17 PM Reading Physician: Ronald Contreras LPN [facility] 04/27/2023 16:30:52 Problems Name Problem SNOMED Code Status Onset Date Resolution Date Notes Provider Name and Address Organization Details Recorded Time Pain of joint 70440679 Completed 01/01/2023 CATHERINE Garza [address] [place] [address], [id number] , [facility] 3 14:47:10 Backache 439283905 Completed 11/15/2014 Yeny Elizabeth NP [address] [place] [address], [phone] , [facility] 5 20:40:22 Sinusiti s [id number] Completed 11/15/2014 Yeny Elizabeth NP [address] [place] [address], [id number] , [facility] 5 20:43:58 Sleep apnea 80542122 Active Not Available [facility] 4 00:24:30 Backache 794202008 Active Not Available [facility] 4 00:24:29 Impaired fasting glycemia 144430495 Active 2017 Not Available [facility] 4 00:24:29 Vitamin D deficien cy 07765433 Active 2020 Not Available [facility] 4 00:24:29 Multiple nodules of lung 081138261 Active 2020 non-canc erous. followed by Dr. Julio lawrence. 09/04/21 note - surveill ance is complete . Not Available [facility] 4 00:24:30 Chronic obstruct wesley pulmonar y disease 26101901 Active 2020 PFT 1 Not Available [facility] 4 00:24:29 Osteoart hritis of right hip joint 79472846637 9107 Active 2021 follows w/ [facility]. Not Available [facility] 4 00:24:29 History of subtotal thyroide ctomy 486737208 Active 2021 Not Available [facility] 4 00:24:30 Decrease d body mass index 9431055 Completed 202101/01/2023 CATHERINE Garza [address] [place] [address], [phone] , [facility] 3 13:54:15 Bone density finding 887834038 Active 2022 Not Available [facility] 4 00:24:29 Major depressi on, melancho lic type 327685084 Active 2022 Not Available [facility] 4 00:24:29 History of partial resectio n of colon 797995503 Active 2022 Not Available [facility] 4 00:24:30 Mixed hyperlip idemia 078736494 Active Not Available [facility] 4 00:24:29 Head and neck swelling 005122323 Completed 200206/29/2013 Not Available [facility] 3 02:04:11 Single major depressi ve episode, mild Completed 200611/15/2014 Yeny Elizabeth NP [address] [place], [address] , [facility] [place] 5 20:42:37 Benign neoplasm of skin of trunk, excludin g scrotum Completed 200506/29/2013 Not Available [facility] 3 02:04:05 [facility] hyperten camryn 20707538 Active Not Available [facility] 4 00:24:30 Chronic nonalcoh olic liver disease 70061006 Active Not Available [facility] 4 00:24:30 Gastroes ophageal reflux disease 127282329 Active Not Available [facility] 4 00:24:29 Non-toxi c uninodul ar goiter 858152920 Completed 11/15/2014 Yeny Elizabeth NP [address] [place] [address], [phone] , [facility] [place] 5 20:42:37 Anxiety state 272545338 Completed 11/15/2014 Yeny Elizabeth NP [address] [place] [address], [address] , [facility] 20:42:37 Acute pharyngi tis 485701372 Completed 06/29/2013 Not Available [facility] 3 02:01:17 Allergic rhinitis 75426904 Active Not Available [facility] 4 00:24:30 Epidermo id cyst of skin 087726511 Completed 200506/29/2013 Not Available [facility] 3 02:02:53 Elevated blood-pr essure reading without diagnosi s of hyperten camryn 575187558 Completed 200211/15/2014 Yeny Elizabeth NP [address] [place] [address], [address] , [facility] 5 20:40:22 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 11/15/2014 Yeny Elizabeth NP [address] [place] [address], [address] , [facility] 5 20:40:22 Organic sleep disorder 638626102 Completed 11/15/2014 Yeny Elizabeth NP [address] [place] [address], [address] , [facility] 5 20:40:22 Acute bronchit is 16289857 Completed 06/29/2013 Not Available [facility] 3 02:01:36 Malaise and fatigue 019678748 Completed 06/29/2013 Not Available [facility] 3 02:00:18 Blood in urine 04237307 Completed 200511/15/2014 Yeny Elizabeth NP [address] [place] [address], [address] , [facility] 5 20:43:58 Carpal tunnel syndrome 46036626 Active 2003 surgery 2010 Not Available [facility] 4 00:24:30 Kidney stone 36778821 Completed 200701/01/2023 CATHERINE Garza [address] [place] [address], [address] , [facility] 3 14:47:07 Ureteric stone 88435661 Completed 200511/15/2014 Yeny Elizabeth NP [address] [place] [address], [address] , [facility] 5 20:43:58 Right upper quadrant pain 056028677 Completed 06/29/2013 Not Available [facility] 3 02:03:18 Sleep disorder 55819878 Completed 11/15/2014 Yeny Elizabeth NP [address] [place] [address], [address] , [facility] 5 20:40:22 Orthosta tic hypotens ion 50987637 Completed 11/15/2014 Yeny Elizabeth NP [address] [place] [address], [address] , [facility] 5 20:40:22 Lymphade nopathy 21383102 Completed 200206/29/2013 Not Available [facility] 3 02:03:13 Tobacco user 412520554 Completed 200211/15/2014 Yeny Elizabeth NP [address] [place] [address], [address] , [facility] 5 20:42:37 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 200511/15/2014 Yeny Elizabeth NP [address] [place] [address], [address] , [facility] 5 20:43:58 Sprain of ankle 42317084 Completed 200406/29/2013 Not Available [facility] 3 02:02:51 Syncope and collapse 370320914 Completed 11/15/2014 Yeny Elizabeth NP [address] [place] [address], [address] , [facility] 5 20:40:22 Joint pain in ankle and foot Completed 200406/29/2013 Not Available [facility] 3 02:01:26 Acute sinusiti s 16893473 Completed 06/29/2013 Not Available [facility] 3 02:02:20 Finding by method 165468989 Completed 200206/29/2013 Not Available [facility] 3 02:01:56 Breast lump 62070178 Completed 200211/15/2014 Yeny Elizabeth NP [address] [place] [address], [address] , [facility] 5 20:40:22 Common cold 77509191 Completed 06/29/2013 Not Available [facility] 3 02:00:28 Mammogra phy abnormal 375414328 Completed 200611/15/2014 Yeny Elizabeth NP [address] [place] [address], [address] , [facility] 5 20:45:31 Idiopath ic peripher al neuropat hy 86207486 Completed 200711/15/2014 Yeny Elizabeth NP [address] [place] [address], [address] , [facility] 5 20:42:37 On examinat ion - a rash Completed 06/29/2013 Not Available [facility] 3 02:00:49 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 Not Available [facility] 4 00:24:30 Dysphagi a 30178931 Completed 11/15/2014 Yeny Elizabeth NP [address] [place], [address] , [facility] 5 20:40:22 Abnormal cervical Papanico laou smear 662309313 Completed 200711/15/2014 Yeny Elizabeth NP [address] [place] [address], [address] , [facility] 5 20:55:49 Non-orga evelyn sleep disorder 183727654 Completed 200511/15/2014 Yeny Elizabeth NP [address] [place] [address], [address] , [facility] 5 20:40:22 Open wound of scalp 903657900 Completed 06/29/2013 Not Available [facility] 3 02:04:18 Low back pain 023532541 Completed 01/01/2023 CATHERINE Garza [address] [place] [address], [address] , [facility] 3 14:47:05 Hypothyr oidism 86089668 Completed 200211/15/2014 Yeny Elizabeth NP [address] [place] [address], [address] , [facility] 5 20:42:37 Mononeur itis 81064015 Completed 200701/01/2023 CATHERINE Garza [address] [place] [address], [address] , [facility] 3 14:47:13 Abnormal findings on diagnost ic imaging of skull and head 010929808 Active Not Available [facility] 4 00:24:29 Pain in limb 08634699 Completed 200406/29/2013 Not Available [facility] 3 02:00:56 Heartbur n 56675759 Completed 06/29/2013 Not Available [facility] 3 02:03:55 Difficul ty speaking Completed 11/15/2014 Yeny Elizabeth NP [address] [place] [address], [address] , [facility] 5 20:40:22 Notes:Some problems listed i n Documents: #[id number], #[id number], #[id number], #[id number], #[id number], #[id number] could not be added to this patient's chart. Please review these documents and add these problems to the patient's chart manually as needed. Problem Notes None recorded. Procedures Surgical History Date Name Laterality Status Provider Name and Address Organization Details Recorded Time Smoking cessation counseling completed Rosa Tran [employer]INE[employer] [facility] 06/21/2024 11:57:13 024 Smoking cessation counseling completed Rosa Tran [facility] 05/03/2024 09:03:04 023 Smoking cessation counseling cancelled Rayna Stapleton [facility] 06/29/2023 09:58:39 023 Smoking cessation counseling cancelled Rosa Tran [facility] 03/31/2023 14:40:47 023 Smoking cessation counseling completed CATHERINE Garza [address] [place] [address], [address], [facility] 01/01/2023 14:12:24 023 Medicare Wellness Visit completed Gisselle Cid [facility] 01/01/2023 13:36:59 022 Smoking cessation counseling completed Gisselle Cid MA [facility] 05/16/2022 14:20:29 022 Smoking cessation counseling completed Everardo Vazquez MD [address] [place] [address], [address], [facility] 04/03/2022 10:41:44 022 Medicare Wellness Visit completed Xiomy Gooden [facility] 12/23/2021 13:50:31 022 Alcohol use screening completed Xiomy Gooden [facility] 12/23/2021 13:50:31 022 Cardiovascular disease risk reduction counseling completed Xiomy Gooden [facility] 12/23/2021 13:50:31 021 Smoking cessation counseling completed Loreta Gloria RN [facility] 07/18/2021 11:27:55 021 Smoking cessation counseling completed Hailey Fleming [facility] 06/05/2021 10:57:46 021 partial lobectomy of thyroid completed Yeny Elizabeth NP [address] [place], [address], [facility] 06/02/2021 12:35:36 021 Biopsy of thyroid completed Dixie Underwood LPN [facility] 01/03/2021 14:35:31 021 Medicare Wellness Visit completed Terrell Thompson [facility] 12/06/2020 08:49:12 021 COPD Screening completed Terrell Thompson [facility] 12/06/2020 11:33:22 021 prevention-cardio vascular risk reduction counseling completed Terrell Thompson [facility] 12/06/2020 08:49:12 021 prevention-annual alcohol misuse screening completed Terrell Thompson [facility] 12/06/2020 08:49:12 021 biopsy of thyroid completed Dixie Underwood LPN [facility] 12/20/2020 15:57:05 021 Medicare Wellness Visit completed Terrell Thompson [facility] 08/21/2020 08:16:38 021 prevention-cardio vascular risk reduction counseling completed Terrell Thompson [facility] 08/21/2020 08:16:38 021 prevention-annual alcohol misuse screening completed Terrell Thompson [facility] 08/21/2020 08:16:38 019 Nebulizer Tx completed Yazan Archer [facility] 09/14/2018 18:02:56 014 Other (specify) completed Yeny Elizabeth NP [address] [place], [address], [facility] 11/15/2014 20:37:49 012 Suture/staple Removal completed Yeny Elizabeth NP [address] [place], [address], [facility] 09/19/2011 17:19:53 011 Carpal Tunnel Surgery completed Yeny Elizabeth NP [address] [place], [address], [facility] 09/12/2011 12:33:44 004 completed Not Available [facility] 1 06:05:52 Back Surgery completed Yeny alexandre NP [address] [place] [address], [address], [facility] 04/10/2015 11:56:53 repair of tendon completed Dixie Underwood LPN [facility] 12/20/2020 15:57:18 Imaging Results None recorded. Procedure Notes None recorded. Medical Equipment None Reported. Allergies Allergen ID Allergen Name Allergen Category Reaction Reaction Severity Criticality Documentation Date Start Date Code Code System Note Provider Name and Address Organization Details Recorded Time [id number] metoprolo l Not available Not available Not available Not available 01/24/2013 6918 RxNorm marito leonard a. Yeny Elizabeth NP [address] [place], [place] [address], [address], [facility] 3 11:47:43 967204 spironola ctone medicatio n dizziness Not available Not available 01/25/2016 9997 RxNorm Yeny Elizabeth NP [address] [place], [place] [address]jac[place], [address], [facility] 6 16:15:07 29984 penicilli n G Not available itching Not available Not available 07/30/2009 7980 RxNorm insid e of skin Not Available [facility] 1 06:05:20 728831 bupropion Not available other Not available Not available 01/26/2017 33449 RxNorm nonst op cryYeny junior NP [address] [place], [place] [address], [address], [facility] 7 16:46:02 70777 hydrochlo rothiazid e medicatio n other severe Not available 10/25/2011 5487 RxNorm ortho stasi s and synco pe [facility]en[facility] [address] [facility] [place] [place] [address], [facility] 2 18:26:45 88198 amlodipin e medicatio n other severe Not available 10/25/2011 77265 RxNorm ortho stasi s and synco pe Yeny Elizabeth NP [address] [facility], [place], [place], [address], [facility] 2 18:26:45 47806 lisinopri l medicatio n cough Not available Not available 10/28/2011 84458 RxNorm Yeny Elizabeth, ANITRA [address] [facility] [place] [place], [address], [facility] 2 11:17:27 35145 Diovan medicatio n other mild Not available 11/10/2011 52499 2 RxNorm diarr hea and insom [place] Yeny Elizabeth NP [address] [place], [address], [facility] 2 11:50:20 Medications Name Sig Start Date [...] Not Available Not Available Not Avai lable Nifedical XL 60 mg tablet,ex tended [...] 2012 active Not Available Not Available Not Avai lable Nicoderm CQ 1 pathc transder mal daily 2022 active per pulm note Not Available Not Available Not Available Aspir-81 1 tab daily 04/27 completed Not Available Not Available Not Available cholecalc iferol (vitamin D3) 50 mcg (2,000 unit) capsule TAKE 1 CAPSULE BY MOUTH DAILY 2021 active Not Available Not Available Not Avai lable GaviLyte- G 236 gram-22.7 4 gram-6.74 gram-5.86 gram oral solution 10/05 completed Not Available Not Available Not Available Breo Ellipta 100 mcg-25 mcg/dose powder for inhalatio n INHALE 1 PUFF INTO THE LUNGS DAILY active Not Available Not Available No t Available Afluria 9916-5307 (PF) 45 mcg (15 mcg x 3)/0.5 mL intramusc ular syringe inject 0.5 millilit er intramus cularly active Not Available Not Available No t Available fluticaso ne 113 mcg-salme terol 14 mcg/actua tion breath activated powdr INHALE 1 PUFF BY MOUTH EVERY 12 HOURS active Not Available Not Available No t Available Afluria 7129-5104 (PF) 45 mcg(15 mcg x 3)/0.5 mL [...] Not Available Not Available Vitals Date Recorded Systolic blood pressure Diastolic blood pressure Provider Name and Address Organization Details Last Updated DateTime 01/01/2023 144 mm[Hg] 82 mm[Hg] CATHERINE Garza [address] [place] [address], [address] [place] [address] 01/01/2023 14:44:45 Date Recorded Body height Body mass index (BMI) Body weight Heart rate Systolic blood pressure Diastolic blood pressure Provider Name and Address Organization Details Last Updated DateTime 3 161.29 cm 20 kg/m2 52190.3 3 g 56 /min 142 mm[Hg] 82 mm[Hg] Gisselle Cid MA [facility] 3 13:45:40 Date Recorded Systolic blood pressure Diastolic blood pressure Provider Name and Address Organization Details Last Updated DateTime 01/28/2023 121 mm[Hg] 81 mm[Hg] CATHERINE Garza [address] [place] [address], [address] [place] [address] 02/06/2023 16:28:51 Date Recorded Body height Body mass index (BMI) Body weight Heart rate Systolic blood pressure Diastolic blood pressure Provider Name and Address Organization Details Last Updated DateTime 4 161.29 cm 20.3 kg/m2 05273.1 1 g 52 /min 128 mm[Hg] 78 mm[Hg] Minerva Soto [facility] 4 13:56:26 Date Recorded Heart rate Systolic blood pressure Diastolic blood pressure Provider Name and Address Organization Details Last Updated DateTime 05/01/2023 52 /min 131 mm[Hg] 86 mm[Hg] Jaida Rosenord [facility] 05/01/2023 14:27:03 Date Recorded Body height Body mass index (BMI) Body weight Heart rate Systolic blood pressure Diastolic blood pressure Provider Name and Address Organization Details Last Updated DateTime 4 160.02 cm 19.2 kg/m2 11149.4 1 g 49 /min 121 mm[Hg] 65 mm[Hg] Rosa Tran LPN [facility] 4 08:51:37 Date Recorded Body height Heart rate Systolic blood pressure Diastolic blood pressure Provider Name and Address Organization Details Last Updated DateTime 05/18/2023 161.29 cm 50 /min 164 mm[Hg] 76 mm[Hg] Jaimee Lowe RN BSN [facility] 05/18/2023 11:57:49 Date Recorded Systolic blood pressure Diastolic blood pressure Systolic blood pressure Diastolic blood pressure Provider Name and Address Organization Details Last Updated DateTime 05/21/2023 148 mm[Hg] 84 mm[Hg] 160 mm[Hg] 97 mm[Hg] Jatin Stapleton [facility] 3 15:52:51 Date Recorded Systolic blood pressure Diastolic blood pressure Systolic blood pressure Diastolic blood pressure Provider Name and Address Organization Details Last Updated DateTime 05/22/2023 152 mm[Hg] 90 mm[Hg] 171 mm[Hg] 87 mm[Hg] Jatin Stapleton [facility] 3 15:53:30 Date Recorded Body height Body mass index (BMI) Body weight Heart rate Systolic blood pressure Diastolic blood pressure Provider Name and Address Organization Details Last Updated DateTime 4 160.02 cm 19.6 kg/m2 20787.0 3 g 56 /min 136 mm[Hg] 74 mm[Hg] Rosa Tran LPN [facility] 13:55:04 Date Recorded Body height Provider Name an d Address Organization Details Last Updated DateTime 06/29/2023 161.29 cm Rayna Buenoelginra [facility] 06/29/2023 09:58:50 Date Recorded Systolic blood pressure Diastolic blood pressure Provider Name and Address Organization Details Last Updated DateTime 07/27/2023 117 mm[Hg] 78 mm[Hg] Radha Parveen [facility] 07/27/2023 14:36:24 Social History Question Answer Notes LastModified by Organizat ion Details LastModified Time Tobacco Smoking Status Current Some Day Smoker PT currently smoking occasionally Rosa Tran LPN [facility] 04/03/2022 09:45:37 Do You Wear A [...] Many Years Have You Smoked Tobacco? 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 [facility] Information not available 07/26/2015 Mental Status [...] intradermal, preservative free 1 completed Not Available [facility] 08/27/2019 02:34:20 Td(adult) unspecified formulation 6 completed Not Available [facility] 09/26/2023 00:24:31 influenza, unspecified formulation 7 completed Not Available [facility] 09/26/2023 00:24:31 Influenza, split virus, trivalent, preservative 2 completed Not Available [facility] 08/27/2019 02:32:24 Tdap 3 completed Not Available [facility] 08/27/2019 02:28:48 Novel [id number] 9 completed Not Available [facility] 08/27/2019 02:27:45 Influenza, split virus, trivalent, PF 3 completed Not Available [facility] 08/27/2019 02:18:58 Influenza, split virus, quadrivalent, PF 5 completed Not Available [facility] 08/27/2019 02:19:46 zoster live 5 completed Not Available [facility] 08/27/2019 02:19:45 influenza, unspecified formulation 6 completed Not Available [facility] 09/26/2023 00:24:31 influenza, unspecified formulation 7 completed Not Available [facility] 09/26/2023 00:24:31 Influenza, high-dose, quadrivalent, PF 0 completed Janee Bai LPN [facility] 05/28/2020 08:46:57 pneumococcal polysaccharide PPV23 0 completed BLANCA DOYLE NP [address] [place] [address], [address], [facility] 06/20/2020 15:02:02 Influenza, split virus, trivalent, preservative 0 completed Not Available [facility] 08/27/2019 02:17:47 COVID-19, mRNA, LNP-S, PF, 30 mcg/0.3 mL dose 1 completed Not Available [facility] 09/26/2023 00:24:30 COVID-19, mRNA, LNP-S, PF, 30 mcg/0.3 mL dose 1 completed Not Available [facility] 09/26/2023 00:24:30 Td (adult), 2 Lf tetanus toxoid, preservative free, adsorbed 3 completed CATHERINE Garza [address] [place], [address], [facility] 01/02/2023 07:56:47 Influenza, high-dose, quadrivalent, PF 1 completed Not Available [facility] 09/26/2023 00:24:30 COVID-19, mRNA, LNP-S, PF, 30 mcg/0.3 mL dose 1 completed Not Available [facility] 09/26/2023 00:24:31 COVID-19, mRNA, LNP-S, PF, 30 mcg/0.3 mL dose 2 completed Not Available [facility] 09/26/2023 00:24:31 zoster recombinant 2 completed Not Available [facility] 09/26/2023 00:24:30 Influenza, split virus, quadrivalent, preservative 2 completed Not Available [facility] 09/26/2023 00:24:30 Past Encounters Encounter ID Performer Location Encounter Start Date Encounter Closed Date Diagnosis/Indication Diagnosis SNOMED-CT Code Diagnosis ICD10 Code Diagnosis Note [id number] Tavon Machado [facility], OFFICE [address] [place] [address] 10/06/2002 15:52:18 08/30/2008 02:02:29 [id number] [facility] , [facility] [address] [place] [address] 10/06/2002 00:00:00 08/30/2008 02:02:29 [id number] [facility] , [address] [address] 10/06/2002 16:36:55 08/30/2008 02:02:29 [id number] [facility] - [address] [address] 10/07/2002 15:46:52 08/30/2008 02:02:29 [id number] [facility] - [address] [address] 11/08/2002 16:26:26 08/30/2008 02:02:29 [id number] [facility] [address] [place] [address] 11/08/2002 15:17:41 08/30/2008 02:02:29 [id number] Tavon Machado [facility], OFFICE [address] [place] [address] 12/08/2002 15:25:39 08/30/2008 02:02:29 [id number] [facility] - [address] [address] 12/08/2002 15:51:11 08/30/2008 02:02:29 [id number] [facility] , [address] [address] 12/20/2002 14:48:00 08/30/2008 02:02:29 [id number] [facility] , [address] [address] 12/20/2002 00:00:00 08/30/2008 02:02:29 [id number] Tavon Machado [facility], OFFICE [address] [place] [address] 03/06/2003 10:13:04 08/30/2008 02:02:29 [id number] Tavon Machado. , [facility], [address] [place] [address] 11/22/2003 12:59:27 11/22/2003 14:55:43 [id number] [facility] , [facility] [address] [place] [address] 12/26/2003 15:20:58 08/30/2008 02:02:29 [id number] [facility] , [facility] [address] [place] [address] 12/26/2003 00:00:00 08/30/2008 02:02:29 [id number] Tavon Machado. , [facility], [address] [place] [address] 01/19/2004 14:11:55 01/19/2004 15:54:03 [id number] ASP, TERRELL FISH MD [facility], [address] [address] 03/27/2004 10:47:20 03/28/2004 09:21:52 [id number] [facility] - [address] [address] 10/15/2004 14:29:29 10/15/2004 14:29:57 [id number] Tavon Machado. , [facility], [address] [place] [address] 12/11/2004 15:06:41 12/11/2004 17:50:16 [id number] [facility] , [address] [address] 12/11/2004 16:00:54 12/12/2004 08:22:27 [id number] [facility] , [address] [address] 12/11/2004 00:00:00 08/30/2008 02:02:29 [id number] [facility] , [address] [address] 01/02/2005 14:50:32 08/30/2008 02:02:29 [id number] [facility] , [address] [address] 01/02/2005 00:00:00 08/30/2008 02:02:29 [id number] Tavon Machado , [facility], [address] [place] [address] 05/13/2005 14:40:24 08/30/2008 02:02:29 [id number] [facility] [address] [address] 05/13/2005 15:36:22 08/30/2008 02:02:29 [id number] [facility] [address] [address] 05/13/2005 00:00:00 08/30/2008 02:02:29 [id number] Angelo Mcwilliams , PT Physical Therapy, [address] [address] 05/26/2005 12:56:12 08/30/2008 02:02:29 [id number] Angelo Mcwilliams , PT Physical Therapy, [address] [address] 06/11/2005 15:17:06 08/30/2008 02:02:29 [id number] Tavon Machado [facility], OFFICE [address] [place] [address] 12/24/2005 15:41:01 12/25/2005 08:44:40 [id number] Tavon Machado [facility], OFFICE [address] [place] [address] 12/24/2005 15:41:01 12/25/2005 08:44:40 [id number] [facility] , [address] [address] 01/15/2006 14:31:58 01/16/2006 09:26:07 [id number] [facility] , [address] [address] 01/15/2006 00:00:00 08/30/2008 02:02:29 [id number] Tavon Machado , [facility], [address] [place] [address] 04/22/2006 15:44:51 04/23/2006 08:28:48 [id number] [facility] - [address] [address] 04/22/2006 16:15:54 04/22/2006 16:16:11 [id number] Tavon Machado , [facility], [address] [place] [address] 04/30/2006 15:02:17 05/01/2006 08:35:41 [id number] [facility] , [address] [address] 05/31/2007 14:16:16 06/01/2007 09:45:04 [id number] [facility] , [address] [address] 05/31/2007 00:00:00 08/30/2008 02:02:29 [id number] Tavon Machado , [facility], [address] [place] [address] 06/01/2007 15:54:13 08/30/2008 02:02:29 [id number] FP TREATMENT NURSE [place], [facility], [address] [place] [address] 07/06/2007 15:59:53 08/30/2008 02:02:29 [id number] [facility] , [address] [address] 07/06/2007 15:26:24 07/07/2007 09:44:25 [id number] [facility] , [address] [address] 07/06/2007 00:00:00 08/30/2008 02:02:29 [id number] [facility]ICE [facility]RESPONDENT Radiology , [address] [address] 07/06/2007 17:40:10 07/07/2007 09:44:33 [id number] [facility] , [address] [address] 07/06/2007 00:00:00 08/30/2008 02:02:29 [id number] Tavon Machado, [facility], OFFICE [address] [place] [address] 12/20/2007 09:22:27 08/30/2008 02:02:29 [id number] [facility] - [address] [address] 12/20/2007 09:59:25 12/20/2007 09:59:[id number] [facility] Radiology , [facility] [address] [place] [address] 6 06/24/2008 11:14:13 06/26/2008 09:15:42 [id number] [facility] - [facility] [address] [place] [address] 07/24/2008 12:24:22 07/24/2008 12:24:31 [id number] Tavon Machado, [facility], OFFICE [address] [place] [address] 6 07/24/2008 11:11:08 08/30/2008 02:02:[id number] [facility] Radiology , [facility] [address] [place] [address] 07/30/2009 12:03:57 07/31/2009 14:41:39 [id number] ANITRA Paz, [facility], OFFICE [address] [place] [address] 6 07/30/2009 12:53:39 08/01/2009 09:41:41 [id number] ANITRA Paz, [facility], OFFICE [address] [place] [address] 6 09/03/2009 10:36:11 09/05/2009 09:01:25 [id number] ANITRA Montalvo, [facility], OFFICE [address] [place] [address] 02/18/2010 16:06:54 02/21/2010 11:14:25 [id number] ANITRA Montalvo, [facility], OFFICE [address] [place] [address] 6 03/04/2010 10:51:19 03/05/2010 09:13:07 [id number] ANITRA Montalvo, [facility], OFFICE [address] [place] [address] 04/08/2010 10:49:52 04/10/2010 12:33:40 [id number] ANITRA Montalvo, [facility], OFFICE [address] [place] [address] 6 05/06/2010 11:06:59 05/09/2010 08:14:35 [id number] ANITRA Montalvo, [facility], OFFICE [address] [place] [address] 09/04/2010 10:12:54 09/09/2010 09:54:[id number] [facility] Radiology , [facility] [address] [place] [address] 09/04/2010 11:35:48 09/05/2010 13:47:30 [id number] Yeny Elizabeth NP FP, [facility], OFFICE [address] [place] [address] 02/17/2011 15:12:45 02/17/2011 16:18:23 [id number] Yeny Elizabeth NP FP, [facility], OFFICE [address] [place] [address] 6 03/03/2011 11:25:18 03/03/2011 12:35:48 [id number] Yeny Elizabeth NP FP, [facility], OFFICE [address] [place] [address] 6 05/05/2011 11:10:16 05/05/2011 12:18:53 [id number] Yeny Elizabeth NP FP, [facility], OFFICE [address] [place] [address] 6 06/16/2011 11:24:27 06/16/2011 12:27:11 [id number] Yeny Elizabeth NP FP, [facility], OFFICE [address] [place] [address] 09/12/2011 11:49:49 09/12/2011 12:53:46 [id number] Yeny Elizabeth NP FP, [facility], OFFICE [address] [place] [address] 09/15/2011 10:11:06 09/15/2011 11:20:27 [id number] [facility] MAM[facility] Radiology , [facility] [address] [place] [address] 6 09/15/2011 11:18:59 09/22/2011 11:25:46 [id number] [facility]iology , [facility] [address] [place] [address] 09/15/2011 11:22:42 09/22/2011 11:26:39 [id number] [facility] Radiology , [facility] [address] [place] [address] 6 09/15/2011 13:02:14 09/22/2011 11:27:06 [id number] Yeny Elizabeth NP FP, [facility], OFFICE [address] [place] [address] 09/19/2011 16:05:15 09/19/2011 17:14:17 [id number] Yeny Elizabeth NP FP, [facility], OFFICE [address] [place] [address] 6 10/16/2011 11:04:47 10/16/2011 12:36:29 [id number] Yeny Elizabeth NP , [facility], OFFICE [address] [place] [address] 6 10/23/2011 10:47:33 10/23/2011 11:31:44 [id number] Yeny Elizabeth NP FP, [facility], OFFICE [address] [place] [address] 6 10/28/2011 10:53:53 10/28/2011 11:41:32 [id number] Toby Huffman MD , [facility], OFFICE [address] [place] [address] 11/10/2011 11:00:59 11/10/2011 12:05:22 [id number] Boo Christine MD , [facility], OFFICE [address] [place] [address] 12/22/2011 11:30:06 12/22/2011 12:11:38 [id number] Balbir Cruz MD Radiology , [facility] [address] [place] [address] 6 05/03/2012 11:01:39 05/04/2012 10:48:40 [id number] Boo Christine MD , [facility], OFFICE [address] [place] [address] 05/11/2012 11:43:11 05/11/2012 12:45:41 [id number] [facility] FP, [facility], OFFICE [address] [place] [address] 05/13/2012 06:44:42 05/13/2012 16:24:11 [id number] Yeny Elizabeth NP FP, [facility], OFFICE [address] [place] [address] 6 10/11/2012 14:33:17 10/11/2012 17:18:16 [id number] Antonio Urbano MD Radiology , [address] [address] 10/18/2012 11:02:02 10/19/2012 10:11:53 [id number] Yeny Elizabeth NP , [facility], OFFICE [address] [place] [address] 6 11/29/2012 11:09:20 11/29/2012 12:09:21 [id number] Yeny Elizabeth NP , [facility], OFFICE [address] [place] [address] 6 12/27/2012 11:13:39 12/27/2012 12:12:31 [id number] Yeny Elizabeth NP , [facility], OFFICE [address] [place] [address] 6 01/24/2013 10:58:06 01/24/2013 11:59:15 [id number] Yeny Elizabeth NP , [facility], OFFICE [address] [place] [address] 6 05/02/2013 10:58:25 05/02/2013 12:23:22 Acute bronchitis 73068070 Pain of joint 41809086 Influenza vaccine needed 2484934448 [id number] Boo Christine MD , [facility], OFFICE [address] [place] [address] 6 12/26/2013 15:36:32 12/26/2013 16:51:55 Adult health examination 954912266 see Risk Assessment and Lifestyle Change Counseling section above Allergic rhinitis 87357210 Backache 061494490 Sinusitis 87759467 Screening for malignant neoplasm of cervix 347829717 Thyroid nodule 735759709 [id number] Boo Christine MD FP, [facility], OFFICE [address] [place] [address] 6 01/22/2015 13:40:10 01/22/2015 14:50:12 Adult health examination 292642148 see Risk Assessment and Lifestyle Change Counseling section above Benign ess ential hypertension 8070478 Blood pressure at goal Backache 906320746 Major depr ession, melancholic type 297433187 Gastroesop hageal reflux disease 010522455 Sleep apnea 80529478 [id number] Boo Christine MD FP, [facility], OFFICE [address] [place] [address] 6 04/10/2015 11:01:34 04/10/2015 12:19:45 Lifestyle 746802338 Benign ess ential hypertension 3823226 Blood pressure at goal Backache 695590954 Varicella vaccination 61754169 Influenza vaccine needed 2144780801 031 [id number] Boo Christine MD FP, C, OFFICE [address] [place] [address] 6 04/27/2015 11:53:26 04/27/2015 12:51:23 Backache 887355320 Benign ess ential hypertension 1921952 Blood pressure at goal [facility] to labile BP, difficult to control [id number] Yeny Elizabeth NP FP, [facility], OFFICE [address] [place] [address] 6 06/04/2015 11:08:23 06/04/2015 14:55:19 Tuberculosis screening 222829933 Z11.1 [id number] Yeny Elizabeth NP FP, [facility], OFFICE [address] [place] [address] 6 06/18/2015 11:15:27 06/18/2015 13:05:30 Tuberculosis screening 490551493 Z11.1 [id number] Yeny Elizabeth NP , [facility], OFFICE [address] [place] [address] 6 07/26/2015 11:30:59 07/26/2015 12:23:47 Benign essential hypertension 7932680 I10 Blood pressure NOT at goal. [id number] Boo Christine MD FP, [facility], OFFICE [address] [place] [address] 6 01/25/2016 15:49:01 01/29/2016 10:59:33 Adult health examination 398546073 Z00.00 see Risk Assessment and Lifestyle Change Counseling section above Benign ess ential hypertension 5569767 I10 Blood pressure NOT at goal. Mixed hyperlipidemia 267 120324 E78.2 [id number] Boo Christine MD FP, [facility], OFFICE [address] [place] [address] 6 02/29/2016 09:37:18 02/29/2016 10:27:55 Hand pain 81764078 M79.642 Benign ess ential hypertension 2367290 I10 Blood pressure NOT at goal. [id number] Boo Christine MD , [facility], OFFICE [address] [place] [address] 6 07/28/2016 14:23:55 07/28/2016 15:14:02 Benign essential hypertension 6925270 I10 Blood pressure NOT at goal despite 3 agents. Can't tolerate spironolac tone. Mixed hyperlipidemia 267 040085 E78.2 Acute uppe r respiratory infection 13124231 J06.9 [id number] MD VICK Cardenas, [facility], OFFICE [address] [place] [address] 6 01/26/2017 15:38:43 01/26/2017 17:01:04 Adult health examination 635227682 Z00.00 see Risk Assessment and Lifestyle Change Counseling section above Benign ess ential hypertension 1773493 I10 Blood pressure at goal. Backache 650583774 M54.9 [id number] MD VICK Cardenas, [facility], OFFICE [address] [place] [address] 6 05/19/2017 15:23:45 05/19/2017 16:05:28 Cough 69567217 R05 Benign ess ential hypertension 7166376 I10 Blood pressure not at goal. [id number] MD VICK Cardenas, [facility], OFFICE [address] [place] [address] 6 06/26/2017 07:49:26 06/26/2017 08:38:01 Benign essential hypertension 1929599 I10 Blood pressure at goal [id number] MD VICK Cardenas, [facility], OFFICE [address] [place] [address] 6 02/16/2018 15:32:13 02/16/2018 16:54:41 Adult health examination 537069299 Z00.00 see Risk Assessment and Lifestyle Change Counseling section above Depression screening 171 049033 Z13.89 depression screening tool administer ed, entered into emr, scored and discussed, time greater than 7.5 minutes Benign ess ential hypertension 0739065 I10 Blood pressure at goal Cough 92645233 R05 Using ProAir occasional ly Screening for malignant neoplasm of colon 222902212 Z12.11 Referral for a DIRECT booked colonoscop y. This patient is a healthy ASA Class 1 or 2 patient (only mild systemic disease), or a STABLE, well controlled insulin dependent diabetic. They do not have serious cardiac disease ie OH/angiopl asty within 1 year, symptomati c CHF; renal failure with CKD 4 or 5; take Coumadin, Plavix, Aggrenox, etc. Sleep apnea 21215120 G47 .30 Please get back to me with name of Cpap provider, will update orders so you can use it again. Impaired f asting glycemia 566867263 R73.01 Blood sugar today 84, continue to monitor [id number] Boo Christine MD , [facility], OFF[address] [place] [address] 09/14/2018 17:17:47 09/16/2018 11:01:46 Mixed hyperlipidemia 446902084 E78.2 Benign ess ential hypertension 8014732 I10 Blood pressure at goal Cough 44455429 R05 Using ProAir occasional ly Backache 231243632 M54.9 Wheezing 53598990 R06.2 Normal grief reaction 27 7962208 F43.20 [id number] Boo Christine MD , [facility], OFF[address] [place] [address] 10/05/2018 15:20:09 10/05/2018 16:27:59 Benign essential hypertension 1046806 I10 Thyroid nodule 665632000 E04.1 Cough 64033350 R05 [id number] Boo Christine MD , [facility], OFFICE [address] [place] [address] 11/02/2018 16:39:52 11/03/2018 09:00:16 Benign essential hypertension 7948064 I10 [id number] Walter López MD , [facility], OFFICE [address] [place] [address] 6 11/25/2019 13:48:50 11/28/2019 14:47:15 Urinary tract infectious disease 07286130 N39.0 Patient instructed to push fluids, to follow up for persistent or worsening symptoms or fever or back pain.Treat for presumptiv e infection w/ bactrim.Co nsider musculoske latal vs stone. If no improvemen t will need imaging and cultures. [id number] Walter López MD , [facility], OFFICE [address] [place] [address] 6 11/30/2019 15:08:40 12/02/2019 13:07:04 Low back pain 248338675 M54.5 Nausea 106970125 R11.0 Night sweats 01230287 R6 1 [id number] Boo Christine MD , [facility], OFFICE [address] [place] [address] 6 05/25/2020 16:15:13 05/28/2020 13:23:56 Active or passive immunization 927715695 Z23 [id number] BLANCA DOYLE NP FP, [facility], OFFICE [address] [place] [address] 6 06/20/2020 09:51:52 06/22/2020 12:18:11 Abdominal pain 98205457 R10.9 New concern, unclear if all symptoms related to same cause, ? cystitis and/or kidney stones given lower abdominal pain with radiation to groin with back pain, POCT urine with trace leuks only, plan to send for culture. Mass palpated in periumbili laney area ? hernia, plan to obtain CT of abdomen and pelvis to further assess all concerns. Screening mammography 24 669021 Z12.31 Routine screening due, patient agreeable, would like to schedule with [facility], aware of wait time. Active or passive immunization 379327661 Z23 Depression screening 171 756624 Z13.31 - depression screening tool administer ed, entered into emr, scored and discussed, time greater than 7.5 minutes-Co ntinue sertraline [id number] Boo Christine MD , [facility], OFFICE [address] [place] [address] 6 07/03/2020 15:32:37 07/04/2020 18:49:34 Essential hypertension 87042427 I10 Major depr ession, melancholic type 568324669 F32.9 Multiple n odules of lung 554975647 R91.8 Liver mass 944661398 R16 .0 [id number] Boo Christine MD , [facility], OFFICE [address] [place] [address] 6 08/21/2020 11:04:42 08/21/2020 14:03:59 Essential hypertension 00102396 I10 Vitamin D deficiency 347 58307 E55.9 Thyroid nodule 101129553 E04.1 Multiple n odules of lung 237818622 R91.8 diffuse, bilateral Tremor 40840942 R25.1 L hand 4th & 5th fingers. [id number] Boo Christine MD , [facility], OFFICE [address] [place] [address] 6 10/23/2020 09:00:28 10/24/2020 16:08:20 Essential hypertension 08816709 I10 Mixed hyperlipidemia 267 085770 E78.2 Major depr ession, melancholic type 922663916 F32.9 sertraline 200mg daily. Multiple n odules of lung 508599678 R91.8 diffuse, bilateral Vitamin D deficiency 347 58724 E55.9 [id number] Boo Christine MD , [facility], OFFICE [address] [place] [address] 6 12/06/2020 11:27:07 12/07/2020 09:46:33 Essential hypertension 46161661 I10 Mixed hyperlipidemia 267 005473 E78.2 Chronic ob structive pulmonary disease 16133534 J44.9 Adult heal th examination 303134139 Z00.00 see Risk Assessment and Lifestyle Change Counseling section above Counseling 174304327 Z71 .9 including cardiovasc ular risk reduction counseling Depression screening 171 790510 Z13.31 depression screening tool administer ed, entered into emr, scored and discussed, time greater than 7.5 minutes. Screening reviewed with pt. treated for depression with sertraline . Screening for alcohol abuse 222916254 Z13.39 [id number] Everardo Vazquez MD Endocrino logbrendan, [facility] [address] [place] [address] 12/20/2020 15:28:49 12/21/2020 06:31:01 Thyroid nodule 231691562 E04.1 Right nodule. Cytology from [facility] reports benign . This typically would apply to follicular cells. This is surprising since previous bx from [facility] (2011) was read as showing predominan t Hurthle [...] genetic analysis. Multiple n odules of lung 042353231 R91.8 Adds to complexity . Concern about whether we can definitive ly link lung nodules to a known primary. Chronic ob structive pulmonary disease 80607727 J44.9 Clinically . Recent PFTs (08/30) c/w emphysema or interstiti al lung disease. Vitamin D deficiency 347 07204 E55.9 Level of 13 (07/29). Given 50K weekly x 1 month. No f/u orders placed. [id number] Everardo Vazquez MD Endocrino logbrendan, [facility] [address] [place] [address] 12/27/2020 12:55:55 12/28/2020 06:32:34 [id number] Everardo Vazquez MD Endocrino logy, [facility] [address] [place] [address] 01/03/2021 14:30:30 01/08/2021 13:15:42 Thyroid nodule 133306055 E04.1 Right nodule. Cytology: [place] IV: Suspicious for Follicular Neoplasm. Genomic sequencing extruder operator vertical pending. Also expression atlas pending. Reviewed ramificati [...] these options are consistent with cytology from [facility] which reported results as benign . While thyroid CA can metastasiz e to lung, one would typically expect to see adenopathy . She has not had significan t apparent adenopathy on exam. Have discussed case with Pulmonary. Genetic sequencing and expression atlas pending. Multiple n odules of lung 553983695 R91.8 Adds to complexity . Concern about whether we can definitive ly link lung nodules to a known primary. Chronic ob structive pulmonary disease 29309940 J44.9 Clinically . Recent PFTs (1/21) c/w emphysema or interstiti al lung disease. Vitamin D deficiency 347 74259 E55.9 Level of 13 (07/29). Given 50K weekly x 1 month. No f/u orders placed. 12/28: suggest get vit D level checked. [id number] Boo Christine MD , [facility], OFFICE [address] [place] [address] 06/05/2021 10:44:10 06/05/2021 11:39:08 Essential hypertension 06347609 I10 Chronic ob structive pulmonary disease 25846164 J44.9 Cigarette smoker 5625255 7 F17.210 Tobacco user 941972274 Z 72.0 Screening for osteoporosis 374883466 Z13.820 Low back pain 832800406 M54.50 Multiple n odules of lung 054355132 R91.8 diffuse, bilateral Thyroid nodule 021419311 E04.1 Benign ess ential hypertension 7051387 I10 [id number] GLENROY MARTI MD , [facility], OFFICE [address] [place] [address] 07/08/2021 11:51:46 07/16/2021 09:19:52 Spasm 31393830 R25.2 describes muscle jerking like spasmrecen t thyroidect yeni, r/o parathyroi d injury - check Cacheck magnesiumi f all normal, she wants to talk to dr. Vazquez at upcoming appt and ask if he thinks this is related somehow to her thyroid. I advised her to let me know if he states it isn't. 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 Should have TSH/free T4 checked (per d/c summary) and see Dr. Vazquez as scheduled. She will have labs today. [id number] Everardo Vazquez MD Endocrino logy, [address] [address] 07/18/2021 11:18:55 07/26/2021 06:28:00 Multiple nodules of lung 900333171 R91.8 Adds to complexity . Concern about whether we can definitive ly link lung nodules to a known primary. Chronic ob structive pulmonary disease 64502241 J44.9 Clinically . Recent PFTs (08/30) c/w emphysema or interstiti al lung disease.Di scussed this in relation to smoking and reasons to quit. Vitamin D deficiency 347 58208 E55.9 D= 36.4 (06/30); was 33 (01/28); was 13 (07/29). Had 50K weekly x 1 month.Take s 1-2 daily supplement (07/30). Cigarette smoker 8312967 7 F17.210 Since no clear evidence of metastatic disease, discussed risks/harm s of smoking. Tobacco user 004818150 Z 72.0 Sweating 041046091 R61 Some diarrhea afterwards . Check catechols and also 5hiaa. 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 Not on repalcemen t. check TFTs. [id number] GLENROY MARTI MD , [facility], OFFICE [address] [place] [address] 10/31/2021 13:22:38 11/11/2021 09:15:16 Pre-surgery evaluation 866788323 Z01.818 Summary: has low rahel-opera tive risk [...] prophylaxi s as per surgical protocol Backache 768027630 M54.9 rare use of tramadol - refill sent [id number] GLENROY MARTI MD , [facility], OFF[address] [place] [address] 12/23/2021 13:29:28 12/23/2021 14:49:50 Adult health examination 186570278 Z00.00 See risk assessment portion of HPI Counseling 100991307 Z71 .9 including cardiovasc ular risk reduction counseling Cardiovasc ular risk reduction was discussed including benefits and risks of aspirin, exercise goals, healthy eating and healthy weight . Discussion greater than 7.5 minutes. Depression screening 171 381650 Z13.31 depression screening tool administer ed, entered into emr, scored and discussed, time greater than 7.5 minutes Screening for alcohol abuse 447384085 Z13.39 An audit alcohol screening test was performed and scored. Patient was asked about alcohol use, advised about risks of alcohol, and personal risk was assessed, patient agreed to plan and given informatio n about available resources if needed. Discussion including screening and scoring less than 7.5 minutes Mixed hyperlipidemia 267 810833 E78.2 Cholestero l is at goal. LDL 65Continue to work on diet and exercise as discussed Essential hypertension 55480280 I10 Controlled . Continue current regimen. Pain of ri ght hip joint 9130264103 78388 M25.551 xrays r/o DJDES Tylenolhad been told not to take NSAIDs due to hypertensi on. Used to prefer Aleve. If pain is not controlled with Tylenol, will try Aleve (or prescripti on naproxen 500 mg) as needed - let me know. Major depr ession, melancholic type 843374114 F33.1 continue sertraline , follow up with therapist. Has been sensitive to other meds so would prefer to stay on same dose. I need a schedule, I need someplace to go. No thoughts of harming herself. Screening mammography 24 533772 Z12.31 Chronic ob structive pulmonary disease 57512154 J44.9 breathing OK - smoking 1 pk/weekCT showed Upper lobe predominan t centrilobu lar emphysema in 01/25/21 at [facility].uses Breo every other day or every 3 days. Legs get stiff when she uses this daily.No glaucoma Mass of axilla 661290785 R22.2 felt last but none now. ?lymph nodeNothin g palpable todayUS ordered [id number] [facility] [address] [place] [address] 04/03/2022 09:31:23 04/03/2022 13:42:46 Sweating 573125985 R61 Has c/o diarrhea and intermitte nt sweats. Had normal catechols. 5hiaa was slightly high (issues with urine pH collection ). Not high enough to be suspicious for carcinoid. If sx persist, may need to repeat. Multiple n odules of lung 361589032 R91.8 Adds to complexity . Concern about whether we can definitive ly link lung nodules to a known primary. Chronic ob structive pulmonary disease 03839699 J44.9 Clinically . Recent PFTs (08/30) c/w emphysema or interstiti al lung disease.Di scussed this in relation to smoking and reasons to quit. Vitamin D deficiency 347 70214 E55.9 D= 47.5 (03/31); was 36.4 (06/30); was 33 (01/28); was 13 (07/29). Was taking 1-2 daily supplement but lately more prn. Cigarette smoker 4071227 7 F17.210 Since no clear evidence of metastatic disease, discussed risks/harm s of smoking. 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 Not on replacemen t. Check TFTs. [id number] Walter López MD , [facility], OFFICE [address] [place] [address] 05/16/2022 14:08:49 05/16/2022 14:58:54 Tobacco user 104754144 Z72.0 not discussed today, will discuss at f/usmoking occasional ly per chart review Active or passive immunization 686362295 Z23 pt already had flu vaccinerem inded about shingles vaccine Pain in right hand 56950 08292 60429 M79.641 s/p fall 2 weeks agorepeat hand/wrist xrays given recurrent edema and painok to continue compressio n brace, rest, ice in the interim Pleuritic pain 7796849 R 07.81 new as of last nightreass uring examencour aged to continue monitoring and call with any changes/wo rsening Pain of ri ght hip joint 7386625420 49103 M25.551 May xray reviewed - moderate degenerati ve changesPT and ortho referrals sentcall as needed Bone density finding 385 390819 M85.80 results 03/2022 reviewed - low bone massFRAX score reviewed: 10 y risk major risk 11%, hip 3.3%discus sed tx options, for now will optimize vitamin D, calcium, and weight-godwin ring and muscle-str engthening repeat scan 2 years Urgent rosalino alan to urinate 45189920 R39.15 POC UA showing trace leuksnot enough urine for culture at appt, will have pt return for this Chronic ob structive pulmonary disease 71772171 J44.9 looking into new pulmonolog ist, has recs from Dr. Vazquez1x refill sent of Trelegy so she has it on hand in the interim Backache [id number] M54.9 takes tramadol sparingly as needed for chronic back painlast fill 01/2022 per doug gastelum reassess at f/u [id number] Walter López MD , [facility], [address] [place] [address] 01/01/2023 13:14:36 01/01/2023 14:31:56 Adult health examination 705519466 Z00.00 Depression screening 171 151917 Z13.31 depression screening tool administer ed. as below. Screening for alcohol abuse 726242703 Z13.39 Alcohol use screening tool administer ed. rec max 7 drinks/wee k. Essential hypertension 18003801 I10 consistent ly above goalincrea se nifedipine to 90mg daily (currently taking 60mg daily)f/u 1 month to reassess Mixed hyperlipidemia 267 068798 E78.2 Cholestero l is at goalContin ue to work on diet and exercise as discussed Screening mammography 24 501902 Z12.31 due Active or passive immunization 330469900 Z23 reminded about shingles vaccinetet anus vaccine will do Increased frequency of urination 092745695 R35.0 POC UA negative, unable to send for culture due to limited supplycall with any new/worsen ing symptoms Chronic ob structive pulmonary disease 17116609 J44.9 needs referral to new pulmonolog ist, she will get the name and let us know where she'd like to godoing well otherwise with current inhaler regimen Impaired f asting glycemia 144744687 R73.01 improving, recent A1C 5.2 Bone density finding 385 207859 M85.80 results 03/2022 reviewed - low bone massFRAX score reviewed: 10 y major risk 11%, hip 3.3%prefer s to continue to optimize vitamin D, calcium, and weight-godwin ring and muscle-str engthening repeat scan 2 years Major depr ession, melancholic type 594961188 F33.1 reports acute on chronic depression does virtual therapy which helpsalso continues on sertraline Tobacco user 107853964 Z 72.0 We discussed your smoking today for more than 3 minutes. Cigarette use is the leading cause of preventabl e disease, disability , and in the [place]. We talked about tools and medication s available to help you in smoking cessation. We discussed utilizing our smoking cessation assistant women's rowing coach and online resources. Your personal goal: to quit! Multiple n odules of lung 318651469 R91.8 per problem list/forme r PCP CE - non-cancer ous. followed by Dr. Leavitt . 09/04/21 note - surveillan ce is complete. pt interested in low dose CT screening to use as f/u as well, as above. Candidiasis of mouth 797 62533 B37.0 will treat with darian per patient preference continue good oral hygiene after inhaler usecall if not resolving History of subtotal thyroidectomy 893094817 Z90.09 original concern for metastatic CA as multiple lung nodules, PET lit up mass in thyroid, now s/p subtotal thyroidect yeni, not on medication , following with Dr. Vazquez regularly History of partial resection of colon 458585401 Z90.49 pre cancerous polyp removal 2008, gets colonoscop ies q5 years [id number] Walter López MD , [facility], [address] [place] [address] 05/18/2023 11:17:42 05/19/2023 14:44:12 [id number] JANEE SHIELDS MD , [facility], [address] [place] [address] 02/05/2024 13:40:32 02/05/2024 17:40:33 Cough 70226711 R05.9 Essential hypertension 29365470 I10 Has been elevated in the past so will monitor closely. Reduce nifedipine to 60 mg daily. Continue losartan and labetolol. Mixed hyperlipidemia 267 037831 E78.2 She would like to try discontinu ing the statin. Agreed this is fine but we should recheck her cholestero l in a month. Lightheadedness 15006212 8 R42 Mostly with standing. I think [...] the beta fidel. Unintentio nal weight loss 876168333 R63.4 Thinks this was due to breaking her teeth, sore teeth. Advised her to continue to use her protein shakes. Will check some labs as above. Will need to monitor. Chronic ob structive pulmonary disease 03204301 J44.9 Continue inhalers and follow up with pulm. Refilled albuterol - see below. Abnormal gait 93469255 R 26.9 She does have a stiff and tentative gait. Unclear whether this is due to deconditio luisito, her concerns about falling or something neurologic al. Will re-evaluat e at next visit. 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 Not on replacemen t.Update TFTs since having sx. Chronic ob structive pulmonary disease 58602770 J44.9 Clinically . Recent PFTs (08/30) c/w emphysema or interstiti al lung disease.Di scussed this in relation to smoking and reasons to quit. Cigarette smoker 8054981 7 F17.210 Since no clear evidence of metastatic disease, discussed risks/harm s of smoking. Tobacco user 095103859 Z 72.0 counseling . Thyroid fu nction tests abnormal 729178778 R94.6 Not controlled . TSH= 2.3 (03/02) was 1.32 (01/31) ft4= 0.71 (03/02); was 0.7 (07/02) She is having multiple sx that might be c/w insufficie nt thyroid. Low T4 in setting of normal TSH is not c/w primary abnormalit y. Suggests possibilit y of secondary (pituitary ) issue.che k labs. Dizziness 725667348 R42 Not controlled Orthostati cs show now rise in HR with standing (drops systolic > 20 but not hypotensiv e).On labetalol- 150 bid (was 300 bid). decreased a year ago (?06/01?)c heck cortisol/a cth. If OK, may want to review use of labetalol vs. change to alternativ e. Osteopenia with high fracture risk 9779532192 62986 M85.80 BMD @ VMGL1-L4= -0.1 (05/01) .Femoral Neck= -1.9 (05/01)Left Total Hip= -1.5 (05/01)Risk s: thin, white, post-menop ausal and smoker. Has had wrist fx. Update with new baseline. [id number] Everardo Vazquez MD Endocrino logy, [facility] [address] [place] [address] 06/23/2024 13:35:00 06/27/2024 06:21:22 Thyroid function tests abnormal 233658951 R94.6 Not controlled . TSH=4.12 (06/02) was [...] related to thyroid. 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 Not on replacemen t.Update TFTs since TSH is slowly rising (although still WNL). Dizziness 262794617 R42 Not controlled Orthostati cs showed rise in HR with standing (drops systolic > 20 but not hypotensiv e).On labetalol- 150 bid (was 300 bid). decreased a year ago (?06/01?) Checked cortisol/a cth and those were OKMay want to review use of labetalol vs. change to alternativ e. Osteopenia with high fracture risk 7217788257 87137 M85.80 BMD @ VMGL1-L4= -0.1 (05/01) .Femoral Neck= -1.9 (05/01)Left Total Hip= -1.5 (05/01)Risk s: thin, white, post-menop ausal and smoker. Has had wrist fx. Recommend: - Update with new baseline in future.- Talk to PCP about physical therapy focus on exercises that don't make dizziness worse. Chronic ob structive pulmonary disease 58053433 J44.9 Clinically . Recent PFTs (08/30) c/w emphysema or interstiti al lung disease.Di scussed this in relation to smoking and reasons to quit. Cigarette smoker 3351497 7 F17.210 Since no clear evidence of metastatic disease, discussed risks/harm s of smoking. Tobacco user 251745853 Z 72.0 counseling . Health Concerns Section Related Observation LastModified by Organization Detai ls LastModified Time None Recorded Concern Status LastModified by Organization Details LastModified Time None Recorded Advance Directives Directive None Recorded Payers Insurance Date Sequence Insurance Name Policy Number Policy Coppola Covered Member ID Coppola Member ID Guarantor Name 06/23/2024 1 [facility] (MEDICARE REPLACEMENT/ADV ANTAGE - HMO) [id number] Linda Diehl [id number] Linda Diehl 08/01/2024 1 [facility] (MEDICARE REPLACEMENT/ADV ANTAGE - PPO) [id number] Linda Diehl [id number] Linda Diehl 12/17/2021 1 [employer] - CIGNA (PPO) [id number] Linda Dinan [id number] Linda Dinan 12/17/2021 1 [facility] - CIGNA (PPO) [id number] Linda Dinan [id number] Linda Dinan 06/16/2024 1 [facility] (MEDICARE REPLACEMENT/ADV ANTAGE - PPO) [id number] Linda Grullon Carlsoan [id number] Linda Dinan 07/29/2024 PAYMENT PLAN Linda Dinan 12/17/2021 1 [employer]IGNA [id number] Linda Dinan [id number] Linda Dinan 12/17/2021 1 [place]: BLUE CHOICE PLAN 2 (POS) [id number] Linda Grullon Shanita [id number] Linda Dinan 12/17/2021 1 [facility] - OPEN ACCESS PLUS (PPO) [id number] Linda Carlosan [id number] Linda Dinan 12/17/2021 1 [place] [id number] Linda Grullon Carlosan [id number] Linda Dinan 12/17/2021 1 [employer] - CHOICE POS II (HMO) [id number] Linda Grullon Carlosan [id number] Linda Dinan 12/17/2021 1 [place]: [facility] - PERSONAL CHOICE (PPO) [id number] Linda Carlosan [id number] Linda Dinan 12/17/2021 1 [employer]IG[employer] (PPO) Linda Dinan [id number] Linda Dinan 12/17/2021 1 [facility] (MEDICAID HMO) [id number] Linda Carlosan [id number] Linda Dinan 12/17/2021 1 MED[place]ARE [place]: [facility] Linda A Shanita [id number] Linda Dinan 02/05/2024 2 [employer] (MEDICARE SUPPLEMENT) Linda Gonzalezan [id number] Linda Diehl Notes Date Note Type Note [...] Risk Assesment:Family History of Coronary Artery Disease(father [place] age 62);Does not participate in regular exercise [...] pressure; Has been difficult to control. Sees sample maker original. On 3 agents. 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) Back pain - ES tylenol only once a day right hip lot of pain - fermin with weight bearing/walking lipids controlled CATHERINE Garza [address] [place] [address], [phone], [facility]02/[place]23 08:02:49 4 text/html Hasn't felt well [...] the last month.Drove herself to the hospital ([place]) and was admitted several days (need to request records) Also states she was diagnosed with metastatic cancer at one point in the last few years but then the oncologist left, someone else reviewed the records, stated there was no concerns and it wasn't actually cancer. 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 [...] suspicious. Had lobectomy (07/30) Bx done through [facility] Radiology: 2.2x1.7x2.9 (5 passes)- reported as benign [...] compared to July 2020. Everardo Vazquez MD [address] [place] [address], [phone], [facility] 05/05/2024 12:57:58 4 text/html ThyroidReported bypatient.Previous Evaluation:Previous biopsy cytology ([place] IV: Suspicious for follicular neoplasm. Genomic sequencing [...] or evaluation until current issues came up.a/vmg-smoking [id number] bypatient.ImportanceOn a scale of 1-10 with 1 [...] better (but still high). F/U prn.PULM: [facility] ([place]) Follow-Up: thyroid noduleVMG Tobacco / Vaping Use epLV on 05/03LAst labs on 06/02Last Thyroid US on 1PT had a Ranjith-thyroidectomy in Ast bone density 2021 at [facility] [place] ordered by PCPNO Labs [...] balance. 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 [...] suspicious. Had lobectomy (07/30) Bx done through [facility] Radiology: 2.2x1.7x2.9 (5 passes)- reported as benign [...] compared to July 2020. Everardo Vazquez MD [address] [place] [address], [place], [phone], [facility] 06/26/2024 18:32:05 OBGyn Episode No OBEpisode recorded.
== END 2025-01-20 13:04 | disposition home or self-care (01) ==
LOC: HO.HMCFM 11:41
PROVIDERS: PCP Nurse Practitioner Family; Visit Provider Nurse Practitioner Family
DX: R00.2 Palpitations (principal); J41.0 Simple chronic bronchitis; R94.31 Abnormal electrocardiogram [ECG] [EKG]; I25.10 Atherosclerotic heart disease of native coronary artery without angina pectoris; I10 Essential (primary) hypertension; F17.210 Nicotine dependence, cigarettes, uncomplicated; E53.8 Deficiency of other specified B group vitamins

== ENCOUNTER → 2025-01-20 11:40 | Outpatient (BNVA) | payer MEDICARE, SELFPAY | PROVIDERS: PCP Nurse Practitioner Family; Visit Provider Nurse Practitioner Family | DX: R00.2 Palpitations (principal); R94.31 Abnormal electrocardiogram [ECG] [EKG]; I25.10 Atherosclerotic heart disease of native coronary artery without angina pectoris; J41.0 Simple chronic bronchitis; I10 Essential (primary) hypertension; E53.8 Deficiency of other specified B group vitamins; F17.210 Nicotine dependence, cigarettes, uncomplicated; Z71.6 Tobacco abuse counseling | CPT/HCPCS: 93005; 99212 ==

== ENCOUNTER 2025-01-20 13:38 | Emergency (ER) | payer MEDICARE, SELFPAY ==
--- NOTE | 2025-01-20 13:46 | ECG_ITS ---
Test Reason : chest pain Blood Pressure : */* mmHG Vent. Rate : 68 BPM Atrial Rate : 68 BPM P-R Int : 144 ms QRS Dur : 88 ms QT Int : 394 ms P-R-T Axes : 83 44 55 degrees QTcB Int : 418 ms Normal sinus rhythm Normal ECG When compared with ECG of 11-Jan-2024 20:15, No significant change was found Referred By: Generic ED Physician Electronically Signed By: ESTEBAN TRINIDAD MD
[2025-01-20 14:02] VITALS: BP 128/88; PULSE 72; RESP 16; TEMP 36.8; O2SAT 94; BMI 19.0
--- NOTE | 2025-01-20 14:03 | ED.GENADULT ---
HPI - General Adult General Chief complaint: Arrhythmia/Palpitations Stated complaint: Irregular heart rate sent by Time Seen by Provider: 01/20/25 17:58 History of Present Illness ED Provider: Cm Gant MD HPI narrative: This is a pleasant 69-year-old female sent in from her PCP Dr. Mason. She was at a preop clearance visit when she developed rapid palpitations. She tells me that the PCP did an EKG at the time I do see 1 EKG available from earlier today that shows sinus rhythm rate 76 no ischemia no abnormalities. Patient said this lasted about 20 minute she had no chest pain she felt mildly dyspneic. She has underlying COPD and sees pulmonology. She has a ophthalmic nurse appointment in less than 2 weeks. She is no known coronary disease, no history of DVT PE nor any leg swelling or other symptomatology of DVT. No fevers or chills or cough. No prior known dysrhythmia. She had a partial thyroidectomy years ago. Related Data Home Medications ?Medication ?Instructions ?Recorded ?Confirmed sertraline 100 mg tablet 100 mg PO BID 01/20/25 01/20/25 Previous Rx's ?Medication ?Instructions ?Recorded fluticasone 113 mcg-salmeterol 14 1 inh inhalation Q12H 30 days #1 ea 09/20/24 mcg/actuation breath activated powdr (AirDuo RespiClick) mecobalamin (vitamin B12) 1,000 2,000 mcg (2 x 1,000 mcg) PO DAILY 09/20/24 mcg chewable tablet (B12 Active) #180 tabs tramadol 50 mg tablet 50 mg PO DAILY PRN pain #30 tabs 09/20/24 losartan 100 mg tablet 100 mg PO DAILY #90 tabs 01/20/25 metoprolol tartrate 25 mg tablet 25 mg PO Q12H PRN palpitations 5 01/20/25 days #10 tabs nifedipine 30 mg tablet,extended 30 mg PO DAILY #90 tabs 01/20/25 release 24 hr Allergies Allergy/AdvReac Type Severity Reaction Status Date / Time Penicillins (PENICILLINS) Allergy Unknown ITCHING Verified 01/20/25 14:06 [facility] Past Medical History Medical History (Updated 01/21/25 @ 00:01 by Background Dadillan) Nicotine dependence, cigarettes, uncomplicated History of mammogram Thyroid cancer ANA (obstructive sleep apnea) Pulmonary nodules COPD (chronic obstructive pulmonary disease) Surgical History (Updated 12/15/24 @ 09:43 by Leia Jc) History of tonsillectomy History of partial thyroidectomy History of colonoscopy (~06/08/18) Previous back surgery H/O laminectomy History of bowel resection Family History Family History Sister Depression Brother Depression HTN (hypertension) Father HTN (hypertension) Heart disease Paternal Grandfather HTN (hypertension) Brother Heart disease Other FH: mental illness Social History Social History (Updated 12/09/24 @ 11:30 by Dennise Colindres PA-C) Housing: House Alcohol intake: current Patient Tobacco Use Status: Current everyday Tobacco user Tobacco use type: Cigarette Cigarettes Per Day: 4 Years Smoked: (onset 15yo, 1/2-1ppd x 54yrs, now <1/4ppd - 35PYH) Smoked in Last 30 Days: No e-Cigarette/Vaping Use: Never Used Any prior treatment program specific to substance use: No Advance Directives: No Advance Directives Information Provided: No service: No Current occupational status: retired Cognitive needs: No Hearing needs: Yes (need hearing checked) Vision needs: Yes (glasses) Physical Exam ED Vital Signs: Vital Signs - 24 hr 01/20/25 14:02 01/20/25 18:00 Temperature 98.3 F 98.4 F Pulse Rate 72 70 Respiratory Rate 16 13 Blood Pressure 128/88 151/79 H Pulse Oximetry 94 100 Oxygen Delivery Method Room Air Room Air BMI result Body Mass Index 19.0 Const Other: EXAM: Gen: Alert, awake, well appearing, well hydrated. Head: Atraumatic Eyes: Anicteric, Normal conjunctiva. ENT: Moist mucosa, no pallor. ? Neck: Supple. Skin: ?No observable rash or bruising on exposed or examined skin Respiratory: Breathing comfortably, No distress.Clear to auscultation bilaterally, symmetric chest expansion, No wheeze, rales, ronchi. Cardiovascular: Regular rate and rhythm. No murmurs or rub. Well perfused periphery, warm extremities. No edema. ? Abdominal: No FOCAL TENDERNESS. Soft, no objective distension. No palpable masses or obvious organomegaly. ?No guarding, no rebound tenderness or other peritoneal findings. : No flank tenderness. Neuro: Alert. Gross movement of all extremities intact. ? Psych: Calm. Cooperative. MSK: No grossly visible deformity. Vital signs: See flowsheet Course Course Course Narrative: This is an RME: Additional HPI, ROS, PE not included below will be deferred to primary provider. RME assessment and note performed by: Franci Roque PA-C This is a 18-kkkt[age]hr-female, benign lipid adenoma bilat, R renal cyst, uterine fibroid, severe atherosclerotic calcification of the aorta and moderate to severe calcifications of the iliofemoral vessels (CT abd pelvis 01/2024), spinal DJD, bilat lung nodule, current smoker, COPD, thyroid ca, ANA, HTN, hx of renal stones, MDD , osteopenia, s/p L arm fracture, b 12 def who presents to the ER with complaints of ?irregular heart rate. Was at PCP's office for dental pre-op clearance. Reports that the provider noted an irregular heart rhythm, normal rate, bounding. Reports patient does get sudden onset with dizziness and fullness sensation in her ears. Reports that she has palpitations, describing it as cardiac awareness . She is not having any chest pain or shortness of breath. Plan: Labs, EKG, cxr, further ER eval needed Medical Decision Making Medical Decision Making [facility] Narrative: 69-year-old female with resolved rapid palpitations. I am unable to see rapid or irregular rhythm or 12 lead in our system unfortunately. She is in sinus rhythm on telemetry here. She looks euvolemic and comfortable has no chest pain. Could be transient dysrhythmia/SVT/atrial fibrillation. We will check electrolytes thyroid advise close follow up with PCP for probable Holter monitor/event monitor outpatient echo it is reassuring that she is seeing Cardiology in a few weeks. Differential Diagnosis Differential Diagnoses: The differential diagnosis associated with the presentation includes AFib, SVT, electrolyte derangement, dehydration, sinus tachycardia, anxiety or white coat hypertension/tachycardia Lab Data [facility] Lab Attestation statement: I reviewed the patient's lab results. 01/20/25 14:31 01/20/25 14:31 Labs: Lab Results 01/20/25 Range/Units 14:31 WBC 6.4 (4.8-10.8) X10*3/uL RBC 4.35 (4.20-5.50) X10*6/uL Hgb 14.2 (12.0-16.0) g/dl Hct 40.6 (37.0-47.0) % MCV 93.3 (80.0-98.0) fL MCH 32.6 (27.0-33.0) pg MCHC 35.0 (31.0-35.0) g/dl RDW 13.1 (11.0-16.0) % Plt Count 235 (160-400) X10*3/uL MPV 10.2 (9.4-12.3) fL Immature Gran % (Auto) 0.3 (0.0-0.4) % Neut % (Auto) 74.9 H (45-73) % Lymph % (Auto) 17.2 L (20-40) % Fallon % (Auto) 7.0 (2-11) % Eos % (Auto) 0.3 (0-4) % Baso % (Auto) 0.3 (0-2) % Lymph # (Auto) 1.1 L (1.2-4.9) X10*3/uL Fallon # (Auto) 0.5 (0.1-1.2) X10*3/uL Eos # (Auto) 0.0 (0.0-0.4) X10*3/uL Baso # (Auto) 0.0 (0.0-0.2) X10*3/uL Abs Immat Gran (auto) 0.02 (0.00-0.03) X10*3/uL Absolute Neuts (auto) 4.8 (2.0-8.3) x10*3/uL Absolute Nucleated RBC 0.000 (0.0-0.012) X10*3/uL Nucleated RBC % (auto) 0.0 (0.0-0.2) /100WBC Sodium 140 (135-145) mmol/L Potassium 3.7 (3.3-5.1) mmol/L Chloride 104 (96-108) mmol/L Carbon Dioxide 26 (22-29) mmol/L Anion Gap 14 (12-20) BUN 10 (9-16) mg/dL Creatinine 0.54 (0.5-1.4) mg/dL Estim Creat Clear Calc 73.2 Estimated GFR > 60 Random Glucose 91 (60-115) mg/dL Calcium 10.0 D (8.4-10.2) mg/dL Magnesium 1.6 (1.6-2.6) mg/dL Total Bilirubin 0.5 (0.0-1.0) mg/dL Direct Bilirubin 0.2 (0.0-0.5) mg/dL AST 25 (5-31) U/L ALT 17 (0-31) U/L Alkaline Phosphatase 69 (39-117) U/L Troponin I High Sens 3.1 (<3.5-17.0) ng/L B-Natriuretic Peptide 73 (<100) pg/mL Total Protein 6.9 (6.5-8.0) g/dL Albumin 4.6 (3.5-5.0) g/dL TSH 1.43 (0.32-4.0) uIU/mL Influenza Type A (PCR) NEGATIVE (Negative) Influenza Type B (PCR) NEGATIVE (Negative) RSV RNA Qual (PCR) NEGATIVE (Negative) SARS-CoV-2 RNA (RT-PCR) NEGATIVE (Negative) Independent Interpretation I performed an independent interpretation of an: EKG (ECG from earlier today PCP's office shows sinus rhythm rate 76 no ischemic changes normal intervals. ECG in the ED performed at 1355 similar sinus rhythm no ischemic changes normal. QTC 418) Discharge Plan Discharge Clinical Impression: Palpitations Patient Disposition: Home, Self-Care Instructions: Heart Palpitations (ED) Additional Instructions: DISCHARGE DIAGNOSES: Resolved rapid palpitations unclear cause at this time HISTORY OF PRESENTATION: ?Resolved palpitations while in the PCP office EMERGENCY DEPARTMENT COURSE,TESTS, TREATMENTS: While in the ED today you had lab work in the ED including TSH thyroid test, electrolytes blood counts ECG all of which was normal and reassuring you were monitored on telemetry with no rapid arrhythmia identified DISCHARGE MEDICATIONS: ?[We have made no changes to your regular medication regimen] metoprolol immediate release prescribed for an as needed basis you can take a tablet if you develop rapid palpitations and called 911 FOLLOW-UP: ?Call your primary or general physician soon as possible to discuss your symptoms, your ED visit and to discuss follow up plans Call your PCP for follow up Cardiology may send you for other cardiac testing or event monitor INSTRUCTIONS ?& RETURN PRECAUTIONS: If any symptoms change first call your primary physician, if it is after-hours your primary doctors office should have a provider cash application representative you can speak with. If the symptoms are severe or very concerning to you then call 911 or return to the ED. Return for persistent rapid palpitations lasting more than 30 minutes or associated with significant difficulty breathing or chest pain Cm Gant MD Emergency Physician [facility] Prescriptions: New metoprolol tartrate 25 mg tablet 25 mg PO Q12H PRN (Reason: palpitations) 5 Days Qty: 10 0RF No Action fluticasone propion-salmeterol [AirDuo RespiClick] 113-14 mcg/actuation aerosol powdr breath activated 1 inh inhalation Q12H 30 Days Qty: 1 11RF tramadol 50 mg tablet 50 mg PO DAILY PRN (Reason: pain) Qty: 30 0RF Rx Instructions: sparingly mecobalamin (vitamin B12) [B12 Active] 1,000 mcg tablet,chewable 2,000 mcg PO DAILY Qty: 180 3RF Rx Instructions: chewable or tablets whatever is covered/available sertraline 100 mg tablet 100 mg PO BID nifedipine 30 mg tablet extended release 24hr 30 mg PO DAILY Qty: 90 2RF losartan 100 mg tablet 100 mg PO DAILY Qty: 90 2RF Interventions: ED Discharge Assessment Last Done: 01/20/25 19:35 Discharge Date/Time: 01/20/25 19:25 Print Language: Welsh
[2025-01-20 14:36] LABS: MANUAL DIFF FLAG NO
[2025-01-20 14:38] LABS: Basophils Percent Auto 0.3 % (0-2); Eosinophils Percent Auto 0.3 % (0-4); Hematocrit 40.6 % (37.0-47.0); Hemoglobin 14.2 g/dl (12.0-16.0); Imm Gran Abs Auto 0.02 X10*3/uL (0.00-0.03); Imm Gran Pct Auto 0.3 % (0.0-0.4); Lymphocytes Absolute Auto 1.1 X10*3/uL (1.2-4.9); Lymphocytes Percent Auto 17.2 % (20-40); Mean Corpuscular Hemoglobin 32.6 pg (27.0-33.0); Mean Corpuscular Volume 93.3 fL (80.0-98.0); Mean Platelet Volume 10.2 fL (9.4-12.3); Monocytes Absolute Auto 0.5 X10*3/uL (0.1-1.2); Neutrophils Absolute Auto 4.8 x10*3/uL (2.0-8.3); Neutrophils Percent Auto 74.9 % (45-73); Platelet Count 235 X10*3/uL (160-400); Red Blood Count 4.35 X10*6/uL (4.20-5.50); Red Cell Distribution Width 13.1 % (11.0-16.0); White Blood Count 6.4 X10*3/uL (4.8-10.8)
[2025-01-20 14:55] LABS: B Type Natriuretic Peptide 73 pg/mL (<100)
[2025-01-20 14:57] LABS: Alanine Aminotransferase 17 U/L (0-31); Albumin Level 4.6 g/dL (3.5-5.0); Alkaline Phosphatase 69 U/L (39-117); Anion Gap 14 (12-20); Aspartate Amino Transferase 25 U/L (5-31); Bilirubin Direct 0.2 mg/dL (0.0-0.5); Bilirubin Total 0.5 mg/dL (0.0-1.0); Blood Urea Nitrogen 10 mg/dL (9-16); Carbon Dioxide 26 mmol/L (22-29); Chloride 104 mmol/L (96-108); Creatinine Clr Calc Pharmacy 73.2; Estimated Glomerular Filt Rate > 60; Glucose Random 91 mg/dL (60-115); Magnesium 1.6 mg/dL (1.6-2.6); Potassium 3.7 mmol/L (3.3-5.1); Sodium 140 mmol/L (135-145); Total Protein 6.9 g/dL (6.5-8.0)
[2025-01-20 14:58] LABS: Troponin-I High Sensitivity 3.1 ng/L (<3.5-17.0)
[2025-01-20 15:12] LABS: TSH reflex Free T4 1.43 uIU/mL (0.32-4.0)
[2025-01-20 15:49] LABS: Influenza A PCR NEGATIVE (Negative); Influenza B PCR NEGATIVE (Negative); Resp Syncy Virus RNA Qual PCR NEGATIVE (Negative); SARS COV2 PCR INHOUSE NEGATIVE (Negative)
[2025-01-20 18:00] VITALS: BP 151/79; PULSE 70; RESP 13; TEMP 36.9; O2SAT 100
[2025-01-20 19:35] VITALS: BP 151/79; PULSE 70; RESP 13; TEMP 36.9; O2SAT 100
== END 2025-01-20 19:25 | disposition home or self-care (01) ==
PROVIDERS: Physician Assistant Medical; Emergency Provider Emergency Medicine; PCP Nurse Practitioner Family
DX: R00.2 Palpitations (principal); R06.00 Dyspnea, unspecified; Z03.818 Encounter for observation for suspected exposure to other biological agents ruled out
CPT/HCPCS: 0241U; 36415; 80048; 80076; 83735; 83880; 84443; 84484; 85025; 93005; 99283; 99284

== ENCOUNTER → 2025-01-20 13:46 | Outpatient (BNV) | payer MEDICARE, SELFPAY | PROVIDERS: PCP Nurse Practitioner Family; Visit Provider Internal Medicine Cardiovascular Disease | DX: R07.9 Chest pain, unspecified (principal) | CPT/HCPCS: 93010 ==

== ENCOUNTER 2025-01-26 13:26 | Outpatient (AMB) | payer MEDICARE, SELFPAY ==
--- NOTE | 2025-01-26 13:33 | A.OFFVIS_ITS ---
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 Apparently the patient was evaluated I believe to the lung cancer screening program back in 2019 in the beginning of the pandemic and she had pulmonary nodules noted. At some point the pulmonary nodules increase in size and the patient is referred to both Oncology and Pulmonary. She did undergo a PET scan. She was concern for the possibility of metastatic disease. Therefore she became depressed and she started smoking more cigarettes. The patient ultimately followed up with additional imaging studies and it appeared that allow the nodules had subsided and therefore this is less likely metastatic disease. Although the etiology still unclear. She did have recent imaging studies last CT scan was in the summer of 2022 although I do not have those reports. Will have to request or CT scans and ideally the films she in a CD that we can visualize the abnormalities. She also continues to smoke cigarettes. She is cutting down. She does fluctuate. We did talk about her COPD in her chronic bronchitis and how this is also contributing to her symptoms. The patient is willing to try nicotine patch at this time she knows not to smoke cigarettes while on the nicotine patch. She also has a history of sleep apnea. The patient did have a CPAP in the past. She does have fatigue during the daytime and daytime drowsiness. Will be reasonable to order a sleep study at this time to better address her underlying degree of sleep apnea in view of her daytime drowsiness and her cardiovascular risk factors. 08/11/2023 the patient is here for a pulmonary follow-up visit. Overall the patient is doing well from a pulmonary standpoint. She does complaint of significant lower extremity pain and Courtney horses. I did explain to her that it could be medication related such as beta agonists findings of a her inhalers can result in potassium chips that can result in muscle spasms. She sometimes twitches overt sometimes uses lab Trelegy or Breo that she may have left over. I did advise her to hold all meds for we can see there is any improvement in her symptoms. Otherwise if she does need to take the inhaler she can try potassium rich foods such as orange or bananas to see if this provides some relief. If not she can also ask her primary care doctor about other medications that she takes such as her Lipitor that can also cause muscle discomfort. The patient did have a CT scan of the chest to the lung cancer screening program which we personally reviewed. It appears that she has pulmonary nodules but the largest nodules actually decreased in size which is reassuring. Her rads score was read as to which is reassuring. She has multiple nodules but they are stable and show have a follow-up CT scan in a year's time. This is concerning to her because at 1 point she was told she had metastatic disease and she was very concerned about that. I did reassure that does not appear to be any worsening of the nodules. She still continues to smoke cigarettes. She does have a quit date and she is hoping to quit altogether. I did encourage her to do so specially with her ongoing symptoms. 02/16/2024 the patient is here for a pulmonary follow-up visit. Overall she is doing okay. She did have an episode Significant abdominal discomfort mainly in the right upper quadrant causing to have some difficulty breathing. She was starting to pant and she could not breathe and therefore she decided to go to the ER. She did have a CT scan of the abdomen. I did personally reviewed. No evidence of any pulmonary parenchymal disease to explain her symptoms. Although on exam she does have some guarding over the right upper voluntary guarding. Her LFTs were normal which is reassuring. No evidence of any gallstones or any cholecystitis on her CT scan of the abdomen. She will be following up with primary care doctor. In the meantime respiratory diamond patient is doing well. She is participating in lung cancer screening program and is due for CT scan the fall 2023. continues use respiratory inhalers as needed. We did go for brief walking oximetry because of shortness of breath and she was able to maintain a pulse ox in the mid 90s. Will go ahead and check an overnight oximetry to make sure she does not have any evidence of hypoxia at nighttime. 05/20/2024 the patient is here for a pulmonary follow-up visit. Overall she is doing well. The patient has been using her rescue inhaler as needed. Typically does not use it often. She did have a cold recently did develop some cough although seems to be getting better. Mild in severity. Denies any chest pains denies any shortness of breath. She did have an overnight oximetry which is reassuring without any desaturations. The patient also is participating in the lung cancer screening program at [facility]. Her last CT scan was back in 04/29/2023. She has not heard as of yet of her more recent CT scan order. Therefore I did request that if she does not hear anything by June to call us and I will put a referral in to our program so she can consider getting her lung cancer screening program here. In addition to that she is working on her smoking cessation. The patient is trying to quit although is difficult because this is a past time. She is doing her best. She also quit drinking due to the fact that she has been having some unsteadiness of the gait. 01/26/2025 the patient is here for pulmonary follow-up visit. Overall the patient has been doing well. She continues use her respiratory therapy as pres cribed. She is no longer using any oxygen which is reassuring. The patient has been limited mainly because of her hip. She has significant hip pain that limits her activity. She is using a walker. She is not being evaluated for potential total hip replacement. From a pulmonary standpoint she is doing very good. She did have a screening CAT scan which is reassuring rods to with emphysema and some small pulmonary nodules. But personally looking at the images I was not impressed with the level of emphysema. She needs to be evaluated by Cardiology as well. But I do believe that from a pulmonary standpoint the patient does have mild risk for perioperative pulmonary complications which include atelectasis, hypoxia, COPD exacerbation, pneumonia. The patient should continue to use her respiratory medications as prescribed. She will follow-up in 6 months. If she has any issues prior to this she will call for an earlier assessment. Of note the patient may need to have oral surgery before her hip surgery which is perfectly fine to proceed with anesthesia and oral surgery as well. [facility] Medical History (Updated 01/26/25 @ 22:51 by Kenney Saini MD) Nicotine dependence, cigarettes, uncomplicated History of mammogram Thyroid cancer ANA (obstructive sleep apnea) Pulmonary nodules COPD (chronic obstructive pulmonary disease) Surgical History (Updated 12/15/24 @ 09:43 by Leia Jc) History of tonsillectomy History of partial thyroidectomy History of colonoscopy (~06/08/18) Previous back surgery H/O laminectomy History of bowel resection Family History Sister Depression Brother Depression HTN (hypertension) Father HTN (hypertension) Heart disease Paternal Grandfather HTN (hypertension) Brother Heart disease Other FH: mental illness Social History Housing: House Alcohol intake: current Patient Tobacco Use Status: Current everyday Tobacco user Tobacco use type: Cigarette Cigarettes Per Day: 4 Years Smoked: (onset 15yo, 1/2-1ppd x 54yrs, now <1/4ppd - 35PYH) e-Cigarette/Vaping Use: Never Used service: No Current occupational status: retired Cognitive needs: No Hearing needs: Yes (need hearing checked) Vision needs: Yes (glasses) Review of Systems Const Reports daytime sleepiness, Reports difficulty sleeping, Denies fever(s) and Reports snoring Eyes Reports no additional complaints ENT Reports nasal congestion Card Denies chest pain and Reports dyspnea on exertion Resp Reports cough, Reports dyspnea on exertion, Reports snoring and Denies wheezing GI Reports as per HPI and Reports abdominal pain Musc Reports no additional complaints Skin/Breast Denies rash Neuro Reports no additional complaints Psych Reports abnormal sleep pattern Narayan/Lymph Denies lymphadenopathy Aller/Immun Denies wheezing Physical Exam Vital Signs: Last Vital Signs Pulse 109 H 01/26/25 13:34 BP 144/64 H 01/26/25 13:34 Pulse Ox 94 01/26/25 13:34 Oxygen Delivery Method Room Air 01/26/25 13:34 BMI result Body Mass Index 18.7 Const General: comfortable HEENT Head: Yes normocephalic Neck Neck: Yes supple Chest Chest palpation & inspection: normal inspection of the chest Resp Effort & Inspection: normal respiratory effort and prolonged expiratory phase Auscultation: diminished lung sounds Cardio Heart sounds: S1 normal heart sound present and S2 normal heart sound present GI Palpation (GI): Soft to palpation Skin General skin exam: no rashes or lesions noted Extrem General: Yes no clubbing, cyanosis or edema Assessment & Plan Assessment & Plan (1) COPD (chronic obstructive pulmonary disease): Code(s): J44.9 - Chronic obstructive pulmonary disease, unspecified Category: Medical Qualifiers: COPD type: chronic bronchitis Chronic bronchitis type: simple Qualified Code(s): J41.0 - Simple chronic bronchitis (2) Pulmonary nodules: Comment: 2022-LDCT RADS 2 Code(s): R91.8 - Other nonspecific abnormal finding of lung field Category: Medical (3) Smoking: Code(s): F17.200 - Nicotine dependence, unspecified, uncomplicated Category: Medical (4) ANA (obstructive sleep apnea): Code(s): G47.33 - Obstructive sleep apnea (adult) (pediatric) Category: Medical (5) Pre-op chest exam: Code(s): Z01.811 - Encounter for preprocedural respiratory examination Category: Medical Plan start Symbicort trial benzonates as needed for cough JOVITA as needed overnight oximetry on RA very good LDCT RADS 2, May proceed with anesthesia and surgery for oral surgery and orthopedic surgery. F/U 6 months Medications: New benzonatate 200 mg PO BID PRN 30 caps 0RF cough 30 days budesonide-formoterol 160-4.5 mcg/actuation 2 puffs inhalation BID 3 ea 3RF 90 days J44.89 - Other specified chronic obstructive pulmonary disease Coding Level of Care Code Est Pt Level 4 ([id number]) Complex EM visit Add On G2211 Diagnoses Simple chronic bronchitis J41.0 COPD type: chronic bronchitis Chronic bronchitis type: simple Pulmonary nodules R91.8 Smoking F17.200 ANA (obstructive sleep apnea) G47.33 Pre-op chest exam Z01.811 Time Spent (min) 17
[2025-01-26 13:34] VITALS: BP 144/64; PULSE 109; O2SAT 94; BMI 18.7
--- OUTSIDE RECORDS SUMMARY | 2025-01-26 14:35 | XMS_ITS | Data Portability ---
Author Organization [facility], [facility] Address [address] [place] [address] Care Team Providers Care Elevated Motorman Name Role Phone EVERARDO VAZQUEZ Pocket Stitcher EMELIA ELIZABETH Primary Care Provider DEANNA JIMENEZ Orthopedist PARVEEN DELVALLE, DMITRIY Reactor Operator Assessment Encounter Date Assessment Date Assessment LastModified [...] recorded. Lab TSH, serum or plasma 2023 [facility], [address] [place] [address], [address], 12:31:07 T4, free, serum 2023 024 [facility], [address] [place] [address], [address], 11:52:26 T3, total, serum 2023 [facility], [address] [place] [address], [address], 11:09:06 FSH (follicle-s timulating hormone), serum 2023 024 [facility], [address] [place] [address], 41790, 11:09:07 igf-1 (insulin-li ke growth factor), serum 2023 024 [facility], [address] [place] [address], 31055, 14:43:26 cortisol, am, serum 2023 024 [facility], [address] [place] [address], 265[address], 14:43:25 acth, plasma 2023 024 [facility], [address] [place] [address], 646[address], 14:43:27 prolactin, serum 2023 024 [facility], [address] [place] [address], 85648, 4 14:43:27 lipid panel, serum 2023 024 [facility], [address] [place] [address], 83427, 4 11:46:37 CBC 2023 024 [facility], [address] [place] [address], 401[address], 4 15:23:54 TSH, serum or plasma 2023 024 [facility], [address] [place] [address], [address]18, 4 15:23:40 BMP, serum or plasma 2023 024 [facility], [address] [place] [address], [address]71, 4 11:46:37 urinalysis, dipstick 2022 023 [facility], [address] [place] [address], [address], 3 13:57:42 Referral None recorded. Procedures None recorded. Surgeries None recorded. Imaging MAMMO, screening, tomosynthes is, bilateral 2022 023 [facility]), [address], [place], [address], 3 16:06:19 LDCT, chest, for lung cancer screening - Please enroll this patient in the LDCT Lung Cancer Screening Program (for ordering, follow up and shared decision making)h as hx known nodules. Dr. Leavitt 09/04/212022 023 [facility], [address] [place], [address], 3 17:26:04 Medication Orders albuterol sulfate HFA 90 mcg/actuati on aerosol inhaler 2023 024 MICHELE [facility], [address] [place] [address], [address], [place], [place], [id number], 4 14:18:20 clotrimazol e 10 mg darian 2022 023 [email or web address] [facility], [address], [address], [place], [place], [id number], 4 14:14:41 Patient TargetsNo targets recorded. Patient Instructions Encounter Date Encounter Id Patient Instructions Last Modified By Organization Details Last Modified Time 01/01/2023 [id number] high cholesterol lifestyle changes Not available 01/01/2023 14:40:56 advance directives: care instructions Not available 01/01/2023 14:40:57 preventing falls: care instructions Not available 01/01/2023 14:40:57 hearing loss: care instructions Not available 01/01/2023 14:40:56 well visit, over 65: care instructions Not available 01/01/2023 14:40:57 05/05/2024 [id number] - Get labs done before 8AM. [email or web address] Not available 05/05/2024 12:46:40 6 months/ 40 minutes Counseling done Contemplating quitting Goal for follow up visit My Health To Do List go to [email or web address] or call contact [email or web address] Counseling done Goal for follow up visit My Health To Do List Not available 05/03/2024 09:03:04 06/23/2024 [id number] [email or web address] Not available 06/26/2024 18:30:45 6 months/ 40 minutes Counseling done Contemplating quitting Goal for follow up visit My Health To Do List go to [email or web address] or call contact [email or web address] Counseling done Goal for follow up visit [...] furth er confi rmati on Not Available [address], [address], 12/25/2022 16:23:00 12/26/19 23 12/25/2022 HGB A1C estimated average glucose 102.5 mg/dL Not Available [address], [address], 12/25/2022 16:23:00 12/26/19 23 12/25/2022 VITAM IN [...] er than 30 ng/mL . Not Available [address], [address], 12/25/2022 16:26:10 12/26/1912/25/2022 TSH TSH 1.79 uIU/m L 0.50-6 .00 The Ameri can Colle ge of Endoc rinol ogy and Ameri can Thyro id Assoc iatio n recom mend goal TSH value s betwe en 0.4-4 .0 mIU/m L. Not Available [address], [address], 12/25/2022 16:26:15 12/26/19 23 12/25/2022 BASIC METAB OLIC PANEL glucose 120 mg/dL 70-100 high Not Available [address], [address], 12/25/2022 16:33:09 12/26/19 23 12/25/2022 BASIC METAB OLIC PANEL BUN 7 mg/dL 7-18 Not Available [address], [address], 12/25/2022 16:33:09 12/26/19 23 12/25/2022 BASIC METAB OLIC PANEL creatinine 0.8 mg/dL 0.8-1. 3 Not Available [address], 75[address], 12/25/2022 16:33:09 12/26/19 23 12/25/2022 BASIC METAB OLIC PANEL B/C 8.8 ratio Not Available [address], [address], 12/25/2022 16:33:09 12/26/1912/25/2022 BASIC METAB OLIC PANEL [...] be used in pregn junaid. Not Available [address], [address], 12/25/2022 16:33:09 12/26/19 23 12/25/2022 BASIC METAB OLIC PANEL sodium 141 mmol/ L 136-14 5 Not Available [address], 8[address], 12/25/2022 16:33:09 12/26/19 23 12/25/2022 BASIC METAB OLIC PANEL potassium 3.6 mmol/ L 3.5-5. 1 Not Available [address], [address], 12/25/2022 16:33:09 12/26/19 23 12/25/2022 BASIC METAB OLIC PANEL chloride 98 mmol/ L 96-107 Not Available [address], [address]16, 12/25/2022 16:33:09 12/26/19 23 12/25/2022 BASIC METAB OLIC PANEL anion gap 11.7 5.0-15 .0 Not Available [address], [address], 12/25/2022 16:33:09 12/26/19 23 12/25/2022 BASIC METAB OLIC PANEL CO2 31 mmol/ L 21-32 Not Available [address], 09348, 12/25/2022 16:33:09 12/26/19 23 12/25/2022 BASIC METAB OLIC PANEL calcium 9.4 mg/dL 8.5-10 .3 Not Available [address], [address], 12/25/2022 16:33:09 12/26/19 23 12/25/2022 LIPID PANEL cholesterol 178 mg/dL <200 mg/dl Rola able 200-2 39 mg/dl Borde rline High >240 mg/dl High Not Available [address], [address], 12/25/2022 16:33:11 12/26/19 23 12/25/2022 LIPID PANEL triglyceride s 76 mg/dL <150 mg/dL Mercedes l 150-1 99 mg/dL Borde rline High 200-4 99 mg/dL High >500 mg/dL Very High Not Available [address], [address], 12/25/2022 16:33:11 12/26/19 23 12/25/2022 LIPID PANEL direct HDL 80 mg/dL <40 mg/dl - Major Risk for CHD >60 mg/dl - Negat wesley Risk for CHD Not Available [address], [address]484, 12/25/2022 16:33:11 12/26/1912/25/2022 DIREC T LDL direct LDL 73 mg/dL RISK CATEG ORY LDL GOAL _ CHD or CHD Risk Equiv alent s <100 mg/dl (10-y ear risk >20%) 2+ Risk Facto rs <130 mg/dl (10-y ear risk <= 20%) 0-1 Risk Facto r <160 mg/dl [facility] all peopl e with 0-1 risk facto r have a 10 year risk <10%, thus 10 year risk asses ment in peopl e with 0-1 risk facto r is not neces liang. Not Available [address], [address], 12/25/2022 16:33:14 01/02/20 23 01/01/2023 POC UA glu UA NEGATI VE Not Available [facility] [address] [place] [address], [address], 01/01/2023 13:57:42 01/02/20 23 01/01/2023 POC UA clarity UA CLEAR Not Available [facility] [address] [place] [address], [address], 01/01/2023 13:57:42 01/02/20 23 01/01/2023 POC UA uro UA 0.[address] [facility] [address] [place] [address], 96678, 01/01/2023 13:57:42 01/02/20 23 01/01/2023 POC UA ket UA NEGATI VE Not Available [facility] [address] [place] [address], 47361, 01/01/2023 13:57:42 01/02/20 23 01/01/2023 POC UA pro UA NEGATI VE Not Available [facility] [address] [place] [address], 67[address], 01/01/2023 13:57:42 01/02/20 23 01/01/2023 POC UA nit UA NEGATI VE Not Available [facility] [address] [place] [address], 23656, 01/01/2023 13:57:42 01/02/20 23 01/01/2023 POC UA rebekah UA NEGATI VE Not Available [facility] [address] [place] [address], 48710, 01/01/2023 13:57:42 01/02/20 23 01/01/2023 POC UA pH UA 7.[address] [facility] [address] [place] [address], 82723, 01/01/2023 13:57:42 01/02/20 23 01/01/2023 POC UA SG UA 1.[address] [facility] [address] [place] [address], 94159, 01/01/2023 13:57:42 01/02/20 23 01/01/2023 POC UA color UA YELLOW Not Available [facility] [address] [place] [address], 05992, 01/01/2023 13:57:42 01/02/20 23 01/01/2023 POC UA blo UA NEGATI VE Not Available [facility] [address] [place] [address], 32168, 01/01/2023 13:57:42 01/02/2001/01/2023 POC UA bren UA NEGATI VE Not Available [facility] [address] [place] [address], 44808, 01/01/2023 13:57:42 02/05/20 24 02/05/2024 HGB A1C [...] furth er confi rmati on Not Available [address], 46735, 02/05/2024 15:16:31 02/05/20 24 02/05/2024 HGB A1C estimated average glucose 105.4 mg/dL Not Available [address], 11536, 02/05/2024 15:16:31 02/05/20 24 02/05/2024 CBC WBC 7.83 K/ L 3.98-1 0.04 Not Available [address], 62444, 02/05/2024 15:23:54 02/05/20 24 02/05/2024 CBC RBC 4.36 M/ L 3.93-5 .22 Not Available [address], 22787, 02/05/2024 15:23:54 02/05/20 24 02/05/2024 CBC HGB 14.3 g/dL 11.2-1 5.7 Not Available [address], 74278, 02/05/2024 15:23:54 02/05/20 24 02/05/2024 CBC HCT 41.8 % 34.1-4 4.9 Not Available [address], 71735, 02/05/2024 15:23:54 02/05/20 24 02/05/2024 CBC MCV 95.9 fL 79.4-9 4.8 high Not Available [address], 09715, 02/05/2024 15:23:54 02/05/20 24 02/05/2024 CBC MCH 32.8 pg 25.6-3 2.2 high Not Available [address], 36806, 02/05/2024 15:23:54 02/05/20 24 02/05/2024 CBC MCHC 34.2 g/dL 32.2-3 5.5 Not Available [address], 47615, 02/05/2024 15:23:54 02/05/20 24 02/05/2024 CBC plt 225 K/ L 182-36 9 Not Available [address], 59256, 02/05/2024 15:23:54 02/05/20 24 02/05/2024 CBC MPV 10.8 fL 9.4-12 .3 Not Available [address], 38396, 02/05/2024 15:23:54 02/05/20 24 02/05/2024 CBC neut% 71.8 % 34.0-7 1.1 high Not Available [address], 75290, 02/05/2024 15:23:54 02/05/20 24 02/05/2024 CBC neut# 5.62 1.56-6 .13 Not Available [address], 72554, 02/05/2024 15:23:54 02/05/20 24 02/05/2024 CBC lymph % 20.9 % 19.3-5 1.7 Not Available [address], 16357, 02/05/2024 15:23:54 02/05/20 24 02/05/2024 CBC lymph # 1.64 K/ L 1.18-3 .74 Not Available [address], 10894, 02/05/2024 15:23:54 02/05/20 24 02/05/2024 CBC mono% 5.6 % 4.7-12 .5 Not Available [address], 96561, 02/05/2024 15:23:54 02/05/20 24 02/05/2024 CBC mono# 0.44 0.24-0 .56 Not Available [address], 77487, 02/05/2024 15:23:54 02/05/20 24 02/05/2024 CBC eo% 0.8 % 0.7-5. 8 Not Available [address], 49611, 02/05/2024 15:23:54 02/05/20 24 02/05/2024 CBC eo# 0.06 0.04-0 .36 Not Available [address], 51095, 02/05/2024 15:23:54 02/05/20 24 02/05/2024 CBC baso% 0.6 % 0.1-1. 2 Not Available [address], 94845, 02/05/2024 15:23:54 02/05/20 24 02/05/2024 CBC baso# 0.05 0.00-0 .08 Not Available [address], 79889, 02/05/2024 15:23:54 02/05/20 24 02/05/2024 CBC RDW-CV 12.3 % 11.7-1 4.4 Not Available [address], 56804, 02/05/2024 15:23:54 02/05/20 24 02/05/2024 CBC Ig% 0.300 % 0.000- 1.500 Ig % >0.5 Indic ates possi ble Left Shift Not Available [address], 84209, 02/05/2024 15:23:54 02/05/20 24 02/05/2024 CBC Ig# 0.020 0.000- 0.093 Not Available [address], 47478, 02/05/2024 15:23:54 02/05/20 24 02/05/2024 CBC NRBC% 0.0 % 0.0-0. 2 Not Available [address], 23907, 02/05/2024 15:23:54 02/05/20 24 02/05/2024 CBC NRBC# 0.000 0.000- 0.012 Not Available [address], 94620, 02/05/2024 15:23:54 02/05/20 24 02/08/2024 BASIC METAB OLIC PANEL glucose 113 mg/dL 70-100 high Not Available [address], 8[address], 02/08/2024 11:46:36 02/05/20 24 02/08/2024 BASIC METAB OLIC PANEL BUN 16 mg/dL 7-18 Not Available [address], 87[address], 02/08/2024 11:46:36 02/05/20 24 02/08/2024 BASIC METAB OLIC PANEL creatinine 0.7 mg/dL 0.8-1. 3 low Not Available [address], 58870, 02/08/2024 11:46:36 02/05/20 24 02/08/2024 BASIC METAB OLIC PANEL B/C 22.9 ratio Not Available [address], 358[address], 02/08/2024 11:46:36 02/05/20 24 02/08/2024 BASIC METAB [...] be used in pregn junaid. Not Available [address], 14[address], 02/08/2024 11:46:36 02/05/20 24 02/08/2024 BASIC METAB OLIC PANEL sodium 142 mmol/ L 136-14 5 Not Available [address], 71311, 02/08/2024 11:46:36 02/05/20 24 02/08/2024 BASIC METAB OLIC PANEL potassium 4.5 mmol/ L 3.5-5. 1 Not Available [address], 97863, 02/08/2024 11:46:36 02/05/20 24 02/08/2024 BASIC METAB OLIC PANEL chloride 102 mmol/ L 96-107 Not Available [address], 78444, 02/08/2024 11:46:36 02/05/20 24 02/08/2024 BASIC METAB OLIC PANEL anion gap 11.9 5.0-15 .0 Not Available [address], 16982, 02/08/2024 11:46:36 02/05/20 24 02/08/2024 BASIC METAB OLIC PANEL CO2 28 mmol/ L 21-32 Not Available [address], 40313, 02/08/2024 11:46:36 02/05/20 24 02/08/2024 BASIC METAB OLIC PANEL calcium 9.5 mg/dL 8.5-10 .3 Not Available [address], 21860, 02/08/2024 11:46:36 02/05/20 24 02/08/2024 LIPID PANEL cholesterol 204 mg/dL <200 mg/dl Rola able 200-2 39 mg/dl Borde rline High >240 mg/dl High Not Available [address], 28545, 02/08/2024 11:46:37 02/05/20 24 02/08/2024 LIPID PANEL triglyceride s 63 mg/dL <150 mg/dL Mercedes l 150-1 99 mg/dL Borde rline High 200-4 99 mg/dL High >500 mg/dL Very High Not Available [address], 22367, 02/08/2024 11:46:37 02/05/20 24 02/08/2024 LIPID PANEL direct HDL 72 mg/dL <40 mg/dl - Major Risk for CHD >60 mg/dl - Negat wesley Risk for CHD Not Available [address] [place], [address], 02/08/2024 11:46:37 02/05/20 24 02/08/2024 DIREC T LDL direct LDL 109 mg/dL RISK CATEG ORY LDL GOAL _ CHD or CHD Risk Equiv alent s <100 mg/dl (10-y ear risk >20%) 2+ Risk Facto rs <130 mg/dl (10-y ear risk <= 20%) 0-1 Risk Facto r <160 mg/dl [facility]mo [facility] all peopl e with 0-1 risk facto r have a 10 year risk <10%, thus 10 year risk asses ment in peopl e with 0-1 risk facto r is not braxton tavera. Not Available [address], [address], 02/08/2024 11:46:38 02/05/20 24 02/08/2024 TSH TSH 1.32 uIU/m L 0.50-6 .00 The Ameri can Colle ge of Endoc rinol ogy and Ameri can Thyro id Assoc iatio n recom mend goal TSH value s betwe en 0.4-4 .0 mIU/m L. Not Available [address], [address], 02/08/2024 15:23:40 02/29/20 24 03/01/2024 FREE T4 free T4 0.71 NG/dL 0.75-1 .54 low Not Available [address], [address], 03/01/2024 10:48:50 02/29/20 24 03/01/2024 VITAM IN [...] er than 30 ng/mL . Not Available [address], 820[address], 03/01/2024 10:55:50 02/29/20 24 03/01/2024 TSH TSH 2.30 uIU/m L 0.50-6 .00 The Ameri can Colle ge of Endoc rinol ogy and Ameri can Thyro id Assoc iatio n recom mend goal TSH value s betwe en 0.4-4 .0 mIU/m L. Not Available [address], 96279, 03/01/2024 11:03:38 05/31/20 24 05/31/2024 FREE T4 free T4 0.80 NG/dL 0.75-1 .54 Not Available [address], 14111, 05/31/2024 11:52:26 05/31/20 24 05/31/2024 TSH TSH 4.12 uIU/m L 0.50-6 .00 The Ameri can Colle ge of Endoc rinol ogy and Ameri can Thyro id Assoc iatio n recom mend goal TSH value s betwe en 0.4-4 .0 mIU/m L. Not Available [address], 31821, 05/31/2024 12:31:07 05/31/20 24 06/01/2024 TOTAL T3 total T3 1.28 NG/mL 0.70-1 .70 Not Available [address], 60825, 06/01/2024 11:09:06 05/31/20 24 06/01/2024 FSH FSH 70.6 mIU/m L Male: 1.0 - 42.5 mIU/m L Femal e Ovula ting: Folli cular Phase : 2.7 - 15.4 mIU/m L Peak: 3.9 - 22.0 mIU/m L Lutea l Phase : 1.0 - 14.4 mIU/m L Postm enopa usal: 25.0 - 160.0 mIU/m L Not Available [address], [address], 06/01/2024 11:09:07 05/31/20 24 06/01/2024 LIPID PANEL cholesterol 219 mg/dL <200 mg/dl Rola able 200-2 39 mg/dl Borde rline High >240 mg/dl High Not Available [address], 08358, 06/01/2024 14:38:40 05/31/20 24 06/01/2024 LIPID PANEL triglyceride s 150 mg/dL <150 mg/dL Mercedes l 150-1 99 mg/dL Borde rline High 200-4 99 mg/dL High >500 mg/dL Very High Not Available [address], 39[address], 06/01/2024 14:38:40 05/31/20 24 06/01/2024 LIPID PANEL direct HDL 70 mg/dL <40 mg/dl - Major Risk for CHD >60 mg/dl - Negat wesley Risk for CHD Not Available [address], [address], 06/01/2024 14:38:40 05/31/20 24 06/01/2024 LDL - CALCU LATED LDL - calculated 119 RISK CATEG ORY LDL GOAL _ CHD or CHD Risk Equiv alent s <100 mg/dl (10-y ear risk >20%) 2+ Risk Facto rs <130 mg/dl (10-y ear risk <= 20%) 0-1 Risk Facto r <160 mg/dl Almo st all peopl e with 0-1 risk facto r have a 10 year risk <10%, thus 10 year risk asses ment in peopl e with 0-1 risk facto r is not braxton tavera. Not Available [address], [address], 06/01/2024 14:38:42 05/31/20 24 06/01/2024 BASIC METAB OLIC PANEL glucose 104 mg/dL 70-100 high Not Available [address], 75867, 06/01/2024 15:00:52 05/31/2006/01/2024 BASIC METAB OLIC PANEL BUN 14 mg/dL 7-18 Not Available [address], 98090, 06/01/2024 15:00:52 05/31/20 24 06/01/2024 BASIC METAB OLIC PANEL creatinine 0.8 mg/dL 0.8-1. 3 Not Available [address], [address]90, 06/01/2024 15:00:52 05/31/20 24 06/01/2024 BASIC METAB OLIC PANEL B/C 17.5 ratio Not Available [address], 35381, 06/01/2024 15:00:52 05/31/20 24 06/01/2024 BASIC METAB [...] be used in pregn junaid. Not Available [address], [address]74, 06/01/2024 15:00:52 05/31/2006/01/2024 BASIC METAB OLIC PANEL sodium 144 mmol/ L 136-14 5 Not Available [address], [address], 06/01/2024 15:00:52 05/31/2006/01/2024 BASIC METAB OLIC PANEL potassium 4.1 mmol/ L 3.5-5. 1 Not Available [address], 76344, 06/01/2024 15:00:52 05/31/2006/01/2024 BASIC METAB OLIC PANEL chloride 104 mmol/ L 96-107 Not Available [address], 61781, 06/01/2024 15:00:52 05/31/2006/01/2024 BASIC METAB OLIC PANEL anion gap 9.8 5.0-15 .0 Not Available [address], 05789, 06/01/2024 15:00:52 05/31/2006/01/2024 BASIC METAB OLIC PANEL CO2 30 mmol/ L 21-32 Not Available [address], [address]372, 06/01/2024 15:00:52 05/31/2006/01/2024 BASIC METAB OLIC PANEL calcium 9.7 mg/dL 8.5-10 .3 Not Available [address], 60267, 06/01/2024 15:00:52 05/31/20 24 06/07/2024 IGF 1, LC/MS igf 1, lc/MS 129 NG/mL 34-245 Not Available [facility] [address] [place], [place] [address], [place], [address], 06/07/2024 14:43:26 05/31/2006/07/2024 IGF 1, LC/MS Z score (female) 0.4 SD -2.0 - +2.0 This test was devel oped and its arnold tical perfo rmanc e kamari cteri stics have been deter mined by [employer]. It has not been clear ed or appro ariel by FDA. This assay has been valid ated pursu ant to the CLIA regul ation s and is used for clini laney purpo ses. Not Available [facility] [address], [place], [address], 06/07/2024 14:43:26 05/31/20 24 06/07/2024 ACTH, PLASM A acth, plasma 18 pg/mL 6-50 Refer ence range appli es only to speci mens colle cted betwe en 7am-1 0am. Not Available [facility] [address], [place], [address], 06/07/2024 14:43:26 05/31/20 24 06/07/2024 PROLA CTIN prolactin 9.4 NG/mL normal Refer ence Range Femal es Non-p regna nt 3.0-3 0.0 Pregn ant 10.0- 209.0 Postm enopa usal 2.0-2 0.0 Not Available [facility] [address], [place], [address], 06/07/2024 14:43:27 04/24/20 23 04/24/2023 LDCT, chest , for lung cance r magui jorge No observ ation record ed. [facility] [address] [facility], [place], [address], 04/28/2023 17:05:43 04/27/20 23 04/27/2023 MAMMO , [...] . ELECTR ONICAL LY SIGNED : Jai Mnotaño ms, M.D. on 2022 at 04:05: 17 PM Reji francis Physic frank: Jai Montaño ms [facility] ([facility]) [address], [place], [address], 04/27/2023 16:30:52 Result Notes Documentation Provider Name [...] follow-up. OVERALL ASSESSMENT CATEGORY BI-RADS-1: Negative. The [employer] recommends annual screening mammography beginning at age 40 for women with average risk of breast cancer. ELECTRONICALLY SIGNED: Ronald Frausto M.D. on 04/27/2023 at 04:05:17 PM Reading Physician: Ronald Contreras LPN [facility] 04/27/2023 16:30:52 Problems Name Problem SNOMED Code Status Onset Date Resolution Date Notes Provider Name and Address Organization Details Recorded Time Pain of joint 84134551 Completed 01/01/2023 CATHERINE Garza [address] [place] [address], [phone] , [facility] 3 14:47:10 Backache 619982922 Completed 11/15/2014 Yeny Elizabeth NP [address] [place] [address], [phone] , [facility] 5 20:40:22 Sinusiti s [id number] Completed 11/15/2014 Yeny Elizabeth NP [address] [place] [address], [phone] , [facility] 5 20:43:58 Sleep apnea 96916033 Active Not Available [facility] 4 00:24:30 Backache 763070182 Active Not Available [facility] 4 00:24:29 Impaired fasting glycemia 187029672 Active 2017 Not Available [facility] 4 00:24:29 Vitamin D deficien cy 98781259 Active 2020 Not Available [facility] 4 00:24:29 Multiple nodules of lung 364075605 Active 2020 non-canc erous. followed by Dr. Julio lawrence. 09/04/21 note - surveill ance is complete . Not Available [facility] 4 00:24:30 Chronic obstruct wesley pulmonar y disease 47148855 Active 2020 PFT 1 Not Available [facility] 4 00:24:29 Osteoart hritis of right hip joint 51915494039 9107 Active 2021 follows w/ [facility] ortho. Not Available [facility] 4 00:24:29 History of subtotal thyroide ctomy 294462821 Active 2021 Not Available [facility] 4 00:24:30 Decrease d body mass index 2816995 Completed 202101/01/2023 CATHERINE Garza [address] [place], [address] , [facility] 3 13:54:15 Bone density finding 679028043 Active 2022 Not Available [facility] 4 00:24:29 Major depressi on, melancho lic type 521273874 Active 2022 Not Available [facility] 4 00:24:29 History of partial resectio n of colon 120349449 Active 2022 Not Available [facility] 4 00:24:30 Mixed hyperlip idemia 286550523 Active Not Available [facility] 4 00:24:29 Head and neck swelling 348409524 Completed 200206/29/2013 Not Available [facility] 3 02:04:11 Single major depressi ve episode, mild Completed 200611/15/2014 Yeny Elizabeth NP [address] [place], [address] , [facility] 5 20:42:37 Benign neoplasm of skin of trunk, excludin g scrotum Completed 200506/29/2013 Not Available [facility] 3 02:04:05 [facility] hyperten camryn [id number] Active Not Available [facility] 4 00:24:30 Chronic nonalcoh olic liver disease 33748180 Active Not Available [facility] 4 00:24:30 Gastroes ophageal reflux disease 620627163 Active Not Available [facility] 4 00:24:29 Non-toxi c uninodul ar goiter 208673457 Completed 11/15/2014 Yeny Elizabeth NP [address] [place] [address], [phone] , [facility] 5 20:42:37 Anxiety state [id number] Completed 11/15/2014 Yeny Elizabeth NP [address] [place] [address], [phone] , [facility] 5 20:42:37 Acute pharyngi tis 940052518 Completed 06/29/2013 Not Available [facility] 3 02:01:17 Allergic rhinitis 78254715 Active Not Available [facility] 4 00:24:30 Epidermo id cyst of skin 514180063 Completed 200506/29/2013 Not Available [facility] 3 02:02:53 Elevated blood-pr essure reading without diagnosi s of hyperten camryn 676814967 Completed 200211/15/2014 Yeny Elizabeth NP [address] [place] [address], [id number] , [facility] 5 20:40:22 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 11/15/2014 Yeny Elizabeth NP [address] [place] [address], [phone] , [facility] 5 20:40:22 Organic sleep disorder 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 Completed 11/15/2014 Yeny Elizabeth NP [address] [place] [address], [address] , [facility] 5 20:40:22 Acute bronchit is 42455682 Completed 06/29/2013 Not Available [facility] 3 02:01:36 Malaise and fatigue 095625153 Completed 06/29/2013 Not Available [facility] 3 02:00:18 Blood in urine 53832967 Completed 200511/15/2014 Yeny Elizabeth NP [address] [place] [address], [address] , [facility] 5 20:43:58 Carpal tunnel syndrome 02848080 Active 2003 surgery 2010 Not Available [facility] 4 00:24:30 Kidney stone 80676679 Completed 200701/01/2023 CATHERINE Garza [address] [place] [address], [address] , [facility] 3 14:47:07 Ureteric stone 21258197 Completed 200511/15/2014 Yeny Elizabeth NP [address] [place] [address], [address] , [facility] 5 20:43:58 Right upper quadrant pain 823406772 Completed 06/29/2013 Not Available [facility] 3 02:03:18 Sleep disorder 26707567 Completed 11/15/2014 Yeny Elizabeth NP [address] [place] [address], [address] , [facility] 5 20:40:22 Orthosta tic hypotens ion 65510650 Completed 11/15/2014 Yeny Elizabeth NP [address] [place] [address], [address] , [facility] 5 20:40:22 Lymphade nopathy 07197769 Completed 200206/29/2013 Not Available [facility] 3 02:03:13 Tobacco user 784479575 Completed 200211/15/2014 Yeny Elizabeth NP [address] [place] [address], [address] , [facility] 5 20:42:37 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 200511/15/2014 Yeny Elizabeth NP [address] [place] [address], [address] , [facility] 5 20:43:58 Sprain of ankle 68183169 Completed 200406/29/2013 Not Available [facility] 3 02:02:51 Syncope and collapse 330193973 Completed 11/15/2014 Yeny Elizabeth NP [address] [place] [address], [address] , [facility] 5 20:40:22 Joint pain in ankle and foot Completed 200406/29/2013 Not Available [facility] 3 02:01:26 Acute sinusiti s 32594756 Completed 06/29/2013 Not Available [facility] 3 02:02:20 Finding by method 590913988 Completed 200206/29/2013 Not Available [facility] 3 02:01:56 Breast lump 87681332 Completed 200211/15/2014 Yeny Elizabeth NP [address] [place] [address], [address] , [facility] 5 20:40:22 Common cold 53377125 Completed 06/29/2013 Not Available [facility] 3 02:00:28 Mammogra phy abnormal 678502770 Completed 200611/15/2014 Yeny Elizabeth NP [address] [place] [address], [address] , [facility] 5 20:45:31 Idiopath ic peripher al neuropat hy 95643643 Completed 200711/15/2014 Yeny Elizabeth NP [address] [place] [address], [address] , [facility] 5 20:42:37 On examinat ion - a rash Completed 06/29/2013 Not Available [facility] 3 02:00:49 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 Not Available [facility] 4 00:24:30 Dysphagi a 74605643 Completed 11/15/2014 Yeny Elizabeth NP [address] [place], [address] , [facility] 5 20:40:22 Abnormal cervical Papanico laou smear 056079000 Completed 200711/15/2014 Yeny Elizabeth NP [address] [place] [address], [address] , [facility] 5 20:55:49 Non-orga evelyn sleep disorder 213272393 Completed 200511/15/2014 Yeny Elizabeth NP [address] [place] [address], [address] , [facility] 5 20:40:22 Open wound of scalp 801119425 Completed 06/29/2013 Not Available [facility] 3 02:04:18 Low back pain 574513777 Completed 01/01/2023 CATHERINE Garza [address] [place] [address], [address] , [facility] 3 14:47:05 Hypothyr oidism 15559784 Completed 200211/15/2014 Yeny Elizabeth NP [address] [place] [address], [address] , [facility] 5 20:42:37 Mononeur itis 08948867 Completed 200701/01/2023 CATHERINE Garza [address] [place] [address], [address] , [facility] 3 14:47:13 Abnormal findings on diagnost ic imaging of skull and head 580759342 Active Not Available [facility] 4 00:24:29 Pain in limb 66436544 Completed 200406/29/2013 Not Available [facility] 3 02:00:56 Heartbur n 58731501 Completed 06/29/2013 Not Available [facility] 3 02:03:55 Difficul ty speaking Completed 11/15/2014 Yeny Elizabeth NP [address] [place] [address], [address] , [facility] 5 20:40:22 Notes:Some problems listed i n Documents: #[id number], #[id number], #[id number], #[id number], #[id number], #[id number] could not be added to this patient's chart. Please review these documents and add these problems to the patient's chart manually as needed. Problem Notes None recorded. Procedures Surgical History Date Name Laterality Status Provider Name and Address Organization Details Recorded Time Smoking cessation counseling completed Rosa Tran LPN [facility] 06/21/2024 11:57:13 024 Smoking cessation counseling completed Rosa Tran [facility] 05/03/2024 09:03:04 023 Smoking cessation counseling cancelled Rayna Stapleton [facility] 06/29/2023 09:58:39 023 Smoking cessation counseling cancelled Rosa rTan [facility] 03/31/2023 14:40:47 023 Smoking cessation counseling completed CATHERINE Garza [address] [place] [address], [address], [facility] 01/01/2023 14:12:24 023 Medicare Wellness Visit completed Gisselle Cid [facility] 01/01/2023 13:36:59 Smoking cessation counseling completed Gisselle Cid [facility] 05/16/2022 14:20:29 022 Smoking cessation counseling completed Everardo Vazquez MD [address] [place] [address], [address], [facility] 04/03/2022 10:41:44 Medicare Wellness Visit completed Xiomy Gooden [facility] 12/23/2021 13:50:31 022 Alcohol use screening completed Xiomy Gooden [facility] 12/23/2021 13:50:31 022 Cardiovascular disease risk reduction counseling completed Xiomy Gooden [facility] 12/23/2021 13:50:31 Smoking cessation counseling completed Loreta Gloria RN [facility] 07/18/2021 11:27:55 021 Smoking cessation counseling completed Hailey Fleming [facility] 06/05/2021 10:57:46 021 partial lobectomy of thyroid completed Yeny Elizabeth NP [address] [place], [address], [facility] 06/02/2021 12:35:36 021 Biopsy of thyroid completed Dixie Underwood LPN [facility] 01/03/2021 14:35:31 021 Medicare Wellness Visit completed Terrell Thompson [facility] 12/06/2020 08:49:12 021 COPD Screening completed Terrell Thompson [facility] 12/06/2020 11:33:22 021 prevention-cardio vascular risk reduction counseling completed Terrell Thompson [facility] 12/06/2020 08:49:12 021 prevention-annual alcohol misuse screening completed Terrell Thompson [facility] 12/06/2020 08:49:12 021 biopsy of thyroid completed Dixie Underwood LPN [facility] 12/20/2020 15:57:05 021 Medicare Wellness Visit completed Terrell Thompson [facility] 08/21/2020 08:16:38 021 prevention-cardio vascular risk reduction counseling completed Terrell Thompson [facility] 08/21/2020 08:16:38 021 prevention-annual alcohol misuse screening completed Terrell Thompson [facility] 08/21/2020 08:16:38 019 Nebulizer Tx completed Yazan Archer [facility] 09/14/2018 18:02:56 014 Other (specify) completed Yeny Elizabeth NP [address] [place], [address], [facility] 11/15/2014 20:37:49 012 Suture/staple Removal completed Yeny Elizabeth NP [address] [place], [address], [facility] 09/19/2011 17:19:53 011 Carpal Tunnel Surgery completed Yeny Elizabeth NP [address] [place], [address], [facility] 09/12/2011 12:33:44 03/27/ 004 completed Not Available [facility] 1 06:05:52 Back Surgery completed Yeny alexandre NP [address] [place], [address], [facility] 04/10/2015 11:56:53 repair of tendon completed Dixie Underwood LPN [facility] 12/20/2020 15:57:18 Imaging Results None recorded. Procedure Notes None recorded. Medical Equipment None Reported. Allergies Allergen ID Allergen Name Allergen Category Reaction Reaction Severity Criticality Documentation Date Start Date Code Code System Note Provider Name and Address Organization Details Recorded Time 446671 metoprolo l Not available Not available Not available Not available 01/24/2013 6918 RxNorm marito cardi a. Yeny Elizabeth NP [address] [place], [place] [address], [address], [facility] 3 11:47:43 489473 spironola ctone medicatio n dizziness Not available Not available 01/25/2016 9997 RxNorm Yeny Elizabeth NP [address] [place], [address], [facility] 6 16:15:07 08790 penicilli n G Not available itching Not available Not available 07/30/2009 7980 RxNorm insid e of skin Not Available [facility] 1 06:05:20 845219 bupropion Not available other Not available Not available 01/26/2017 68049 RxNorm nonst op cryin gYeny NP [address] [place], [address], [facility] 7 16:46:02 89632 hydrochlo rothiazid e medicatio n other severe Not available 10/25/2011 5487 RxNorm ortho stasi s and synco pe Yeny Elizabeth NP [address] [place], [address], [facility] 2 18:26:45 69790 amlodipin e medicatio n other severe Not available 10/25/2011 64207 RxNorm ortho stasi s and synco pe Yeny Elizabeth NP [address] [place], [address], [facility] 2 18:26:45 55263 lisinopri l medicatio n cough Not available Not available 10/28/2011 30136 RxNorm Yeny Elizabeth NP [address] [place], [address], [facility] 2 11:17:27 32712 Diovan medicatio n other mild Not available 11/10/2011 81982 2 RxNorm diarr hea and insom caridad Yeny Elizabeth NP [address] [facility] [place], [address], [facility] 2 11:50:20 Medications Name Sig Start Date [...] active Not Available Not Available Not Avai thu Nicoderm CQ 1 pathc transder mal daily [...] Available Not Available No t Available Afluria 9579-7950 (PF) 45 mcg (15 mcg x 3)/0.5 mL intramusc ular syringe inject 0.5 millilit er intramus cularly active Not Available Not Available No t Available fluticaso ne 113 mcg-salme terol 14 mcg/actua tion breath activated powdr INHALE 1 PUFF BY MOUTH EVERY 12 HOURS active Not Available Not Available No t Available Afluria 0258-2102 (PF) 45 mcg(15 mcg x 3)/0.5 mL [...] 01/01/2023 144 mm[Hg] 82 mm[Hg] CATHERINE Garza [address] [place] [address], [address] 01/01/2023 14:44:45 Date Recorded Body height Body mass index (BMI) Body weight Heart rate Systolic blood pressure Diastolic blood pressure Provider Name and Address Organization Details Last Updated DateTime 3 161.29 cm 20 kg/m2 25019.3 3 g 56 /min 142 mm[Hg] 82 mm[Hg] Gisselle Cid MA [facility] 3 13:45:40 Date Recorded Systolic blood pressure Diastolic blood pressure Provider Name and Address Organization Details Last Updated DateTime 01/28/2023 121 mm[Hg] 81 mm[Hg] CATHERINE Garza [address] [place] [address], [address] 02/06/2023 16:28:51 Date Recorded Body height Body mass index (BMI) Body weight Heart rate Systolic blood pressure Diastolic blood pressure Provider Name and Address Organization Details Last Updated DateTime 4 161.29 cm 20.3 kg/m2 76239.1 1 g 52 /min 128 mm[Hg] 78 mm[Hg] Minerva Soto [facility] 4 13:56:26 Date Recorded Heart rate Systolic blood pressure Diastolic blood pressure Provider Name and Address Organization Details Last Updated DateTime 05/01/2023 52 /min 131 mm[Hg] 86 mm[Hg] Jaida Rosales [facility] 05/01/2023 14:27:03 Date Recorded Body height Body mass index (BMI) Body weight Heart rate Systolic blood pressure Diastolic blood pressure Provider Name and Address Organization Details Last Updated DateTime 4 160.02 cm 19.2 kg/m2 58515.4 1 g 49 /min 121 mm[Hg] 65 mm[Hg] Rosa Tran LPN [facility] 4 08:51:37 Date Recorded Body height Heart rate Systolic blood pressure Diastolic blood pressure Provider Name and Address Organization Details Last Updated DateTime 05/18/2023 161.29 cm 50 /min 164 mm[Hg] 76 mm[Hg] Jaimee Lowe RN BSN [facility] 05/18/2023 11:57:49 Date Recorded Systolic blood pressure Diastolic blood pressure Systolic blood pressure Diastolic blood pressure Provider Name and Address Organization Details Last Updated DateTime 05/21/2023 148 mm[Hg] 84 mm[Hg] 160 mm[Hg] 97 mm[Hg] Jatin [facility] 3 15:52:51 Date Recorded Systolic blood pressure Diastolic blood pressure Systolic blood pressure Diastolic blood pressure Provider Name and Address Organization Details Last Updated DateTime 05/22/2023 152 mm[Hg] 90 mm[Hg] 171 mm[Hg] 87 mm[Hg] Jatin garrido [facility] 3 15:53:30 Date Recorded Body height Body mass index (BMI) Body weight Heart rate Systolic blood pressure Diastolic blood pressure Provider Name and Address Organization Details Last Updated DateTime 4 160.02 cm 19.6 kg/m2 78016.0 3 g 56 /min 136 mm[Hg] 74 mm[Hg] Rosa Tran LPN [facility] 4 13:55:04 Date Recorded Body height Provider Name an d Address Organization Details Last Updated DateTime 06/29/2023 161.29 cm Rayna Stapleton [facility] 06/29/2023 09:58:50 Date Recorded Systolic blood pressure Diastolic blood pressure Provider Name and Address Organization Details Last Updated DateTime 07/27/2023 117 mm[Hg] 78 mm[Hg] Radha Saini [facility] 07/27/2023 14:36:24 Social History Question Answer Notes LastModified by Organizat ion Details LastModified Time Tobacco Smoking Status Current Some Day Smoker PT currently smoking occasionally [facility]2022 09:45:37 Do You Wear A Helmet [...] Did You Quit Smoking? 6-10yearssi ncelastciga rette [email or web address] Information not available 06/05/2021 How Many Days [...] 01/22/2015 What Is Your Current Pack Years? 20-29packsue ars Information not available 04/27/2015 Seat Belts [...] Many Years Have You Smoked Tobacco? 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 Medical History Condition Response Skin Cancer Y Hyperlipidemia Y NEUROLOGIC Y Hypertension Y GASTROINTESTINAL Colon Polyps Y Gynecological HistoryNo gynecological history recorded. Obstetrics History GPAL:G 0 P 0 0 0 0 Immunizations Vaccine Type Date Status Note Provider Nam e and Address Organization Details Recorded Time influenza, seasonal, intradermal, preservative free 1 completed Not Available [facility] 08/27/2019 02:34:20 Td(adult) unspecified formulation 6 completed Not Available [facility] 09/26/2023 00:24:31 influenza, unspecified formulation 7 completed Not Available [facility] 09/26/2023 00:24:31 Influenza, split virus, trivalent, preservative 2 completed Not Available [facility] 08/27/2019 02:32:24 Tdap 3 completed Not Available [facility] 08/27/2019 02:28:48 Novel [id number] 9 completed Not Available [facility] 08/27/2019 02:27:45 Influenza, split virus, trivalent, PF 3 completed Not Available [facility] 08/27/2019 02:18:58 Influenza, split virus, quadrivalent, PF 5 completed Not Available [facility] 08/27/2019 02:19:46 zoster live 5 completed Not Available [facility] 08/27/2019 02:19:45 influenza, unspecified formulation 6 completed Not Available [facility] 09/26/2023 00:24:31 influenza, unspecified formulation 7 completed Not Available [facility] 09/26/2023 00:24:31 Influenza, high-dose, quadrivalent, PF 0 completed Janee Bai LPN [facility] 05/28/2020 08:46:57 pneumococcal polysaccharide PPV23 11/11/202 0 completed BLANCA DOYLE NP [address] [place], [address], [facility] 06/20/2020 15:02:02 Influenza, split virus, trivalent, preservative 0 completed Not Available [facility] 08/27/2019 02:17:47 COVID-19, mRNA, LNP-S, PF, 30 mcg/0.3 mL dose 1 completed Not Available [facility] 09/26/2023 00:24:30 COVID-19, mRNA, LNP-S, PF, 30 mcg/0.3 mL dose 1 completed Not Available [facility] 09/26/2023 00:24:30 Td (adult), 2 Lf tetanus toxoid, preservative free, adsorbed 3 completed CATHERINE Garza [address] [place], [address], [facility] 01/02/2023 07:56:47 Influenza, high-dose, quadrivalent, PF 1 completed Not Available [facility] 09/26/2023 00:24:30 COVID-19, mRNA, LNP-S, PF, 30 mcg/0.3 mL dose 1 completed Not Available [facility] 09/26/2023 00:24:31 COVID-19, mRNA, LNP-S, PF, 30 mcg/0.3 mL dose 2 completed Not Available [facility] 09/26/2023 00:24:31 zoster recombinant 2 completed Not Available [facility] 09/26/2023 00:24:30 Influenza, split virus, quadrivalent, preservative 2 completed Not Available [facility] 09/26/2023 00:24:30 Past Encounters Encounter ID Performer Location Encounter Start Date Encounter Closed Date Diagnosis/Indication Diagnosis SNOMED-CT Code Diagnosis ICD10 Code Diagnosis Note [id number] Tavon Machado. , [facility], OFFICE [address] [place] [address] 10/06/2002 15:52:18 08/30/2008 02:02:29 [id number] [facility] , [facility] [address] [place] [address] 10/06/2002 00:00:00 08/30/2008 02:02:29 [id number] [facility] [address] [address] [facility] , [facility] [address] [place] [address] 10/06/2002 16:36:55 08/30/2008 02:02:29 [id number] [facility] - [address] [address] 10/07/2002 15:46:52 08/30/2008 02:02:29 [id number] [facility] - [address] [address] 11/08/2002 16:26:26 08/30/2008 02:02:29 [id number] Tavon Machado [facility], OFFICE [address] [place] [address] 11/08/2002 15:17:41 08/30/2008 02:02:29 [id number] Tavon Machado , [facility], OFFICE [address] [place] [address] 12/08/2002 15:25:39 08/30/2008 02:02:29 [id number] [facility] - [address] [address] 12/08/2002 15:51:11 08/30/2008 02:02:29 [id number] [facility] , [address] [address] 12/20/2002 14:48:00 08/30/2008 02:02:29 [id number] [facility] , [address] [address] 12/20/2002 00:00:00 08/30/2008 02:02:29 [id number] Tavon Machado , [facility], OFFICE [address] [place] [address] 03/06/2003 10:13:04 08/30/2008 02:02:29 [id number] Tavon Machado [facility], OFFICE [address] [place] [address] 11/22/2003 12:59:27 11/22/2003 14:55:43 [id number] [facility] Rad[facility] , [address] [address] 12/26/2003 15:20:58 08/30/2008 02:02:29 [id number] [facility] , [address] [address] 12/26/2003 00:00:00 08/30/2008 02:02:29 [id number] Tavon Machado , [facility], OFFICE [address] [place] [address] 01/19/2004 14:11:55 01/19/2004 15:54:03 [id number] [facility], TERRELL FISH MD ASP, [facility] [address] [place] [address] 03/27/2004 10:47:20 03/28/2004 09:21:52 [id number] [facility] - [address] [address] 10/15/2004 14:29:29 10/15/2004 14:29:57 [id number] Tavon Machado , [facility], OFFICE [address] [place] [address] 12/11/2004 15:06:41 12/11/2004 17:50:16 [id number] [facility] , [address] [address] 12/11/2004 16:00:54 12/12/2004 08:22:27 [id number] [facility] Radiology , [address] [address] 12/11/2004 00:00:00 08/30/2008 02:02:29 [id number] [facility]iology , [address] [address] 01/02/2005 14:50:32 08/30/2008 02:02:29 [id number] [facility] Radiology , [address] [address] 01/02/2005 00:00:00 08/30/2008 02:02:29 [id number] Tavon Machado , [facility], OFF[address] [place] [address] 05/13/2005 14:40:24 08/30/2008 02:02:29 [id number] [facility] RADIOLOG[facility] Rad[facility] , [address] [address] 05/13/2005 15:36:22 08/30/2008 02:02:29 [id number] [facility] Techn[facility] Radiology , [address] [address] 05/13/2005 00:00:00 08/30/2008 02:02:29 [id number] Angelo Mcwilliams , PT Physical Therapy, [address] [address] 05/26/2005 12:56:12 08/30/2008 02:02:29 [id number] Angelo Mcwilliams , PT Physical Therapy, [address] [address] 06/11/2005 15:17:06 08/30/2008 02:02:29 [id number] Tavon Machado , [facility], OFFICE [address] [place] [address] 12/24/2005 15:41:01 12/25/2005 08:44:40 [id number] Tavon Machado , [facility], OFFICE [address] [place] [address] 12/24/2005 15:41:01 12/25/2005 08:44:40 [id number] [facility] Radiology , [address] [address] 01/15/2006 14:31:58 01/16/2006 09:26:07 [id number] [facility] , [address] [address] 01/15/2006 00:00:00 08/30/2008 02:02:29 [id number] Tavon Machado , [facility], OFFICE [address] [place] [address] 04/22/2006 15:44:51 04/23/2006 08:28:48 [id number] [facility] - [address] [address] 04/22/2006 16:15:54 04/22/2006 16:16:11 [id number] Tavon Machado [facility], OFFICE [address] [place] [address] 04/30/2006 15:02:17 05/01/2006 08:35:41 [id number] [facility] , [address] [address] 05/31/2007 14:16:16 06/01/2007 09:45:04 [id number] [facility] , [address] [address] 05/31/2007 00:00:00 08/30/2008 02:02:29 [id number] Tavon Machado , [facility], [address] [place] [address] 06/01/2007 15:54:13 08/30/2008 02:02:29 [id number] TREATMENT NURSE [facility], [facility], OFFICE [address] [place] [address] 07/06/2007 15:59:53 08/30/2008 02:02:29 [id number] [facility] , [address] [address] 07/06/2007 15:26:24 07/07/2007 09:44:25 [id number] [facility] , [address] [address] 07/06/2007 00:00:00 08/30/2008 02:02:29 [id number] [facility] ACCOUNT DEVELOPMENT REPRESENTATIVE Radiology , [address] [address] 07/06/2007 17:40:10 07/07/2007 09:44:33 [id number] [facility] ACCOUNT DEVELOPMENT REPRESENTATIVE [facility] , [address] [address] 07/06/2007 00:00:00 08/30/2008 02:02:29 [id number] Tavon Machado [facility], OFFICE [address] [place] [address] 12/20/2007 09:22:27 08/30/2008 02:02:29 [id number] [facility] - [address] [address] 12/20/2007 09:59:25 12/20/2007 09:59:40 [id number] [facility] , [address] [address] 6 06/24/2008 11:14:13 06/26/2008 09:15:42 [id number] [facility] LAB - [facility] [address] [place] [address] 6 07/24/2008 12:24:22 07/24/2008 12:24:31 [id number] Tavon Machado. VICK, [facility], OFFICE [address] [place] [address] 6 07/24/2008 11:11:08 08/30/2008 02:02:29 [id number] [facility] Radiology , [facility] [address] [place] [address] 6 07/30/2009 12:03:57 07/31/2009 14:41:39 [id number] ANITRA Paz, [facility], OFFICE [address] [place] [address] 6 07/30/2009 12:53:39 08/01/2009 09:41:41 [id number] ANITRA Paz, [facility], OFFICE [address] [place] [address] 6 09/03/2009 10:36:11 09/05/2009 09:01:25 [id number] ANITRA Montalvo, [facility], OFFICE [address] [place] [address] 6 02/18/2010 16:06:54 02/21/2010 11:14:25 [id number] ANITRA Montalvo, [facility], OFFICE [address] [place] [address] 6 03/04/2010 10:51:19 03/05/2010 09:13:07 [id number] ANITRA Montalvo, [facility], OFFICE [address] [place] [address] 6 04/08/2010 10:49:52 04/10/2010 12:33:40 [id number] ANITRA Montalvo, [facility], OFFICE [address] [place] [address] 6 05/06/2010 11:06:59 05/09/2010 08:14:35 [id number] ANITRA Montalvo, [facility], OFFICE [address] [place] [address] 6 09/04/2010 10:12:54 09/09/2010 09:54:47 [id number] [facility] Radiology , [facility] [address] [place] [address] 6 09/04/2010 11:35:48 09/05/2010 13:47:30 [id number] Yeny Elizabeth NP FP, [facility], OFFICE [address] [facility] [place] [address] 02/17/2011 15:12:45 02/17/2011 16:18:23 [id number] Yeny Elizabeth NP FP, [facility], OFFICE [address] [facility] [place] [address] 03/03/2011 11:25:18 03/03/2011 12:35:48 [id number] Yeny Elizabeth NP FP, [facility], OFFICE [address] [facility] [place] [address] 6 05/05/2011 11:10:16 05/05/2011 12:18:53 [id number] Yeny Elizabeth NP FP, [facility], OFFICE [address] [facility] [place] [address] 6 06/16/2011 11:24:27 06/16/2011 12:27:11 [id number] Yeny Elizabeth NP FP, [facility], OFFICE [address] [facility] [place] [address] 6 09/12/2011 11:49:49 09/12/2011 12:53:46 [id number] Yeny Elizabeth NP FP, [facility], OFFICE [address] [place] [address] 6 09/15/2011 10:11:06 09/15/2011 11:20:27 [id number] [facility] MAMMO TECH Radiology , [facility] [address] [place] [address] 09/15/2011 11:18:59 09/22/2011 11:25:46 [id number] [facility] ACCOUNT DEVELOPMENT REPRESENTATIVE Radiology , [facility] [address] [place] [address] 6 09/15/2011 11:22:42 09/22/2011 11:26:39 [id number] [facility] ACCOUNT DEVELOPMENT REPRESENTATIVE Radiology , [facility] [address] [place] [address] 6 09/15/2011 13:02:14 09/22/2011 11:27:06 [id number] Yeny Elizabeth NP FP, [facility], OFFICE [address] [facility] [place] [address] 09/19/2011 16:05:15 09/19/2011 17:14:17 [id number] Yeny Elizabeth NP FP, [facility], OFF[address] [facility] [place] [address] 6 10/16/2011 11:04:47 10/16/2011 12:36:29 [id number] Yeny Elizabeth NP FP, [facility], OFFICE [address] [facility] [place] [address] 6 10/23/2011 10:47:33 10/23/2011 11:31:44 [id number] Yeny Elizabeth NP FP, [facility], OFFICE [address] [facility] [place] [address] 6 10/28/2011 10:53:53 10/28/2011 11:41:32 [id number] Toby Huffman MD , [facility], OFFICE [address] [facility] [place] [address] 11/10/2011 11:00:59 11/10/2011 12:05:22 [id number] Boo Christine MD , [facility], OFFICE [address] [facility] [place] [address] 6 12/22/2011 11:30:06 12/22/2011 12:11:38 [id number] Balbir Cruz MD Radiology , [facility] [address] [place] [address] 6 05/03/2012 11:01:39 05/04/2012 10:48:40 [id number] Boo Christine MD , [facility], OFFICE [address] [facility] [place] [address] 6 05/11/2012 11:43:11 05/11/2012 12:45:41 [id number] [facility] FLU CLINIC FP, [facility], OFFICE [address] [place] [address] 6 05/13/2012 06:44:42 05/13/2012 16:24:11 [id number] Yeny Elizabeht NP FP, [facility], OFFICE [address] [place] [address] 10/11/2012 14:33:17 10/11/2012 17:18:16 [id number] Antonio Urbano MD Radiology , [facility] [address] [place] [address] 6 10/18/2012 11:02:02 10/19/2012 10:11:53 [id number] Yeny Elizabeth NP , [facility], OFFICE [address] [place] [address] 6 11/29/2012 11:09:20 11/29/2012 12:09:21 [id number] Yeny Elizabeth NP , [facility], OFFICE [address] [place] [address] 6 12/27/2012 11:13:39 12/27/2012 12:12:31 [id number] Yeny Elizabeth NP , [facility], OFFICE [address] [place] [address] 6 01/24/2013 10:58:06 01/24/2013 11:59:15 [id number] Yeny Elizabeth NP , [facility], OFFICE [address] [place] [address] 6 05/02/2013 10:58:25 05/02/2013 12:23:22 Acute bronchitis 56371745 Pain of joint 58687248 Influenza vaccine needed 4558647045 [id number] Boo Christine MD , [facility], OFFICE [address] [place] [address] 6 12/26/2013 15:36:32 12/26/2013 16:51:55 Adult health examination 402552427 see Risk Assessment and Lifestyle Change Counseling section above Allergic rhinitis 95814257 Backache 876571326 Sinusitis 55174785 Screening for malignant neoplasm of cervix 464752636 Thyroid nodule 995199972 [id number] Boo Christine MD , [facility], OFFICE [address] [place] [address] 6 01/22/2015 13:40:10 01/22/2015 14:50:12 Adult health examination 740363265 see Risk Assessment and Lifestyle Change Counseling section above Benign ess ential hypertension 1661855 Blood pressure at goal Backache 303755059 Major depr ession, melancholic type 011926556 Gastroesop hageal reflux disease 925719173 Sleep apnea 26535061 [id number] Boo Christine MD FP, [facility], OFFICE [address] [place] [address] 6 04/10/2015 11:01:34 04/10/2015 12:19:45 Lifestyle 460603428 Benign ess ential hypertension 3235133 Blood pressure at goal Backache 727157418 Varicella vaccination 55959179 Influenza vaccine needed 6699544266 411 [id number] Boo Christine MD FP, [facility], OFFICE [address] [place] [address] 6 04/27/2015 11:53:26 04/27/2015 12:51:23 Backache 929919217 Benign ess ential hypertension 0729074 Blood pressure at goal Will be getting another 24hr monitor by nephrologi st due to labile BP, difficult to control [id number] Yeny Elizabeth NP FP, [facility], OFFICE [address] [place] [address] 6 06/04/2015 11:08:23 06/04/2015 14:55:19 Tuberculosis screening 306642955 Z11.1 [id number] Yeny Elizabeth NP FP, [facility], OFFICE [address] [place] [address] 6 06/18/2015 11:15:27 06/18/2015 13:05:30 Tuberculosis screening 592262766 Z11.1 [id number] Yeny Elizabeth NP FP, [facility], OFFICE [address] [place] [address] 6 07/26/2015 11:30:59 07/26/2015 12:23:47 Benign essential hypertension 1693498 I10 Blood pressure NOT at goal. [id number] Boo Christine MD FP, C, OFFICE [address] [place] [address] 6 01/25/2016 15:49:01 01/29/2016 10:59:33 Adult health examination 265380192 Z00.00 see Risk Assessment and Lifestyle Change Counseling section above Benign ess ential hypertension 1814804 I10 Blood pressure NOT at goal. Mixed hyperlipidemia 267 068712 E78.2 [id number] Boo Christine MD FP, C, OFFICE [address] [place] [address] 6 02/29/2016 09:37:18 02/29/2016 10:27:55 Hand pain 45416357 M79.642 Benign ess ential hypertension 3246208 I10 Blood pressure NOT at goal. [id number] Boo Christine MD , [facility], OFFICE [address] [place] [address] 6 07/28/2016 14:23:55 07/28/2016 15:14:02 Benign essential hypertension 7484343 I10 Blood pressure NOT at goal despite 3 agents. Can't tolerate spironolac tone. Mixed hyperlipidemia 267 298320 E78.2 Acute uppe r respiratory infection 06863597 J06.9 [id number] Boo Christine MD , [facility], OFFICE [address] [place] [address] 6 01/26/2017 15:38:43 01/26/2017 17:01:04 Adult health examination 520454325 Z00.00 see Risk Assessment and Lifestyle Change Counseling section above Benign ess ential hypertension 9129507 I10 Blood pressure at goal. Backache 995497953 M54.9 [id number] Boo Christine MD , [facility], OFFICE [address] [place] [address] 6 05/19/2017 15:23:45 05/19/2017 16:05:28 Cough 45930204 R05 Benign ess ential hypertension 4980816 I10 Blood pressure not at goal. [id number] Boo Christine MD , [facility], OFFICE [address] [place] [address] 6 06/26/2017 07:49:26 06/26/2017 08:38:01 Benign essential hypertension 4001201 I10 Blood pressure at goal [id number] Boo Christine MD , [facility], OFFICE [address] [place] [address] 6 02/16/2018 15:32:13 02/16/2018 16:54:41 Adult health examination 123323345 Z00.00 see Risk Assessment and Lifestyle Change Counseling section above Depression screening 171 922440 Z13.89 depression screening tool administer ed, entered into emr, scored and discussed, time greater than 7.5 minutes Benign ess ential hypertension 3200959 I10 Blood pressure at goal Cough 67243596 R05 Using ProAir occasional ly Screening for malignant neoplasm of colon 493184765 Z12.11 Referral for a DIRECT booked colonoscop y. This patient is a healthy ASA Class 1 or 2 patient (only mild systemic disease), or a STABLE, well controlled insulin dependent diabetic. They do not have serious cardiac disease ie UT/angiopl asty within 1 year, symptomati c CHF; renal failure with CKD 4 or 5; take Coumadin, Plavix, Aggrenox, etc. Sleep apnea 62483198 G47 .30 Please get back to me with name of Cpap provider, will update orders so you can use it again. Impaired f asting glycemia 312106800 R73.01 Blood sugar today 84, continue to monitor [id number] MD VICK Cardenas, [facility], OFFICE [address] [place] [address] 6 09/14/2018 17:17:47 09/16/2018 11:01:46 Mixed hyperlipidemia 492692714 E78.2 Benign ess ential hypertension 2475012 I10 Blood pressure at goal Cough 38825473 R05 Using ProAir occasional ly Backache 724479162 M54.9 Wheezing 35551572 R06.2 Normal grief reaction 27 9604229 F43.20 [id number] MD VICK Cardenas, [facility], OFFICE [address] [place] [address] 6 10/05/2018 15:20:09 10/05/2018 16:27:59 Benign essential hypertension 1745798 I10 Thyroid nodule 224572471 E04.1 Cough 51272752 R05 [id number] MD VICK Cardenas, [facility], OFFICE [address] [place] [address] 6 11/02/2018 16:39:52 11/03/2018 09:00:16 Benign essential hypertension 0011695 I10 [id number] MD VICK Flores, [facility], OFFICE [address] [place] [address] 6 11/25/2019 13:48:50 11/28/2019 14:47:15 Urinary tract infectious disease 50284562 N39.0 Patient instructed to push fluids, to follow up for persistent or worsening symptoms or fever or back pain.Treat for presumptiv e infection w/ bactrim.Co nsider musculoske latal vs stone. If no improvemen t will need imaging and cultures. [id number] Walter López MD , [facility], OFFICE [address] [place] [address] 6 11/30/2019 15:08:40 12/02/2019 13:07:04 Low back pain 801783356 M54.5 Nausea 226239012 R11.0 Night sweats 33860058 R6 1 [id number] Boo Christine MD , [facility], OFFICE [address] [place] [address] 6 05/25/2020 16:15:13 05/28/2020 13:23:56 Active or passive immunization 820711517 Z23 [id number] BLANCA DOYLE NP , [facility], OFFICE [address] [place] [address] 6 06/20/2020 09:51:52 06/22/2020 12:18:11 Abdominal pain 37395278 R10.9 New concern, unclear if all symptoms related to same cause, ? cystitis and/or kidney stones given lower abdominal pain with radiation to groin with back pain, POCT urine with trace leuks only, plan to send for culture. Mass palpated in periumbili laney area ? hernia, plan to obtain CT of abdomen and pelvis to further assess all concerns. Screening mammography 24 711163 Z12.31 Routine screening due, patient agreeable, would like to schedule with [facility], aware of wait time. Active or passive immunization 471583636 Z23 Depression screening 171 379339 Z13.31 - depression screening tool administer ed, entered into emr, scored and discussed, time greater than 7.5 minutes-Co ntinue sertraline [id number] Boo Christine MD , [facility], OFFICE [address] [place] [address] 6 07/03/2020 15:32:37 07/04/2020 18:49:34 Essential hypertension 04292965 I10 Major depr ession, melancholic type 261738228 F32.9 Multiple n odules of lung 224352288 R91.8 Liver mass 256476449 R16 .0 [id number] Boo Christine MD , [facility], OFFICE [address] [place] [address] 6 08/21/2020 11:04:42 08/21/2020 14:03:59 Essential hypertension 92650219 I10 Vitamin D deficiency 347 15783 E55.9 Thyroid nodule 330204090 E04.1 Multiple n odules of lung 746311101 R91.8 diffuse, bilateral Tremor 33405281 R25.1 L hand 4th & 5th fingers. [id number] Boo Christine MD , [facility], OFFICE [address] [place] [address] 6 10/23/2020 09:00:28 10/24/2020 16:08:20 Essential hypertension 94492845 I10 Mixed hyperlipidemia 267 829264 E78.2 Major depr ession, melancholic type 467547267 F32.9 sertraline 200mg daily. Multiple n odules of lung 996045022 R91.8 diffuse, bilateral Vitamin D deficiency 347 27364 E55.9 [id number] Boo Christien MD , [facility], OFFICE [address] [place] [address] 6 12/06/2020 11:27:07 12/07/2020 09:46:33 Essential hypertension 79009556 I10 Mixed hyperlipidemia 267 454248 E78.2 Chronic ob structive pulmonary disease 72377088 J44.9 Adult heal th examination 805933455 Z00.00 see Risk Assessment and Lifestyle Change Counseling section above Counseling 928805063 Z71 .9 including cardiovasc ular risk reduction counseling Depression screening 171 492406 Z13.31 depression screening tool administer ed, entered into emr, scored and discussed, time greater than 7.5 minutes. Screening reviewed with pt. treated for depression with sertraline . Screening for alcohol abuse 328448360 Z13.39 [id number] Everardo Vazquez MD Endocrino logy, [address] [address] 12/20/2020 15:28:49 12/21/2020 06:31:01 Thyroid nodule 085054387 E04.1 Right nodule. Cytology from [facility] reports benign . This typically would [...] genetic analysis. Multiple n odules of lung 455666302 R91.8 Adds to complexity . Concern about whether we can definitive ly link lung nodules to a known primary. Chronic ob structive pulmonary disease 60927810 J44.9 Clinically . Recent PFTs (08/30) c/w emphysema or interstiti al lung disease. Vitamin D deficiency 347 71672 E55.9 Level of 13 (07/29). Given 50K weekly x 1 month. No f/u orders placed. [id number] Everardo Vazquez MD Endocrino logy, [facility] [address] [place] [address] 12/27/2020 12:55:55 12/28/2020 06:32:34 [id number] Everardo Vazquez MD Endocrino logy, [facility] [address] [place] [address] 01/03/2021 14:30:30 01/08/2021 13:15:42 Thyroid nodule 319120395 E04.1 Right nodule. Cytology: [facility] IV: Suspicious for Follicular Neoplasm. Genomic sequencing vendor quality supervisor pending. Also expression atlas pending. Reviewed ramificati ons of suspicious for follicular neoplasm: [place] CATEGORIES AND ESTIMATED RISK Benign .......... .......... .......0-3 %......... .. Clinical follow-up Follicular Neoplasm or Suspicious for a Follicular Neoplasm .......... .......... ..15-30%.. ..... Surgical lobectomy Reviewed [...] these options are consistent with cytology from [facility] which reported results as benign . While thyroid CA can metastasiz e to lung, one would typically expect to see adenopathy . She has not had significan t apparent adenopathy on exam. Have discussed case with Pulmonary. Genetic sequencing and expression atlas pending. Multiple n odules of lung 053730590 R91.8 Adds to complexity . Concern about whether we can definitive ly link lung nodules to a known primary. Chronic ob structive pulmonary disease 18503758 J44.9 Clinically . Recent PFTs (08/30) c/w emphysema or interstiti al lung disease. Vitamin D deficiency 347 70745 E55.9 Level of 13 (07/29). Given 50K weekly x 1 month. No f/u orders placed. 12/28: suggest get vit D level checked. [id number] Boo Christine MD , [facility], OFFICE [address] [place] [address] 06/05/2021 10:44:10 06/05/2021 11:39:08 Essential hypertension 49836546 I10 Chronic ob structive pulmonary disease 09596296 J44.9 Cigarette smoker 3266061 7 F17.210 Tobacco user 289628804 Z 72.0 Screening for osteoporosis 568752635 Z13.820 Low back pain 931355298 M54.50 Multiple n odules of lung 886370797 R91.8 diffuse, bilateral Thyroid nodule 738780400 E04.1 Benign ess ential hypertension 7354285 I10 [id number] GLENROY MARTI MD , [facility], OFFICE [address] [place] [address] 07/08/2021 11:51:46 07/16/2021 09:19:52 Spasm 34125434 R25.2 describes muscle jerking like spasmrecen t thyroidect yeni, r/o parathyroi d injury - check Cacheck magnesiumi f all normal, she wants to talk to dr. Vazquez at upcoming appt and ask if he thinks this is related somehow to her thyroid. I advised her to let me know if he states it isn't. 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 Should have TSH/free T4 checked (per d/c summary) and see Dr. Vazquez as scheduled. She will have labs today. [id number] Everardo Vazquze MD Endocrino logy, [facility] [address] [place] [address] 07/18/2021 11:18:55 07/26/2021 06:28:00 Multiple nodules of lung 193197325 R91.8 Adds to complexity . Concern about whether we can definitive ly link lung nodules to a known primary. Chronic ob structive pulmonary disease 15613654 J44.9 Clinically . Recent PFTs (08/30) c/w emphysema or interstiti al lung disease.Di scussed this in relation to smoking and reasons to quit. Vitamin D deficiency 347 57638 E55.9 D= 36.4 (06/30); was 33 (01/28); was 13 (07/29). Had 50K weekly x 1 month.Take s 1-2 daily supplement (07/30). Cigarette smoker 4950406 7 F17.210 Since no clear evidence of metastatic disease, discussed risks/harm s of smoking. Tobacco user 699466611 Z 72.0 Sweating 564375152 R61 Some diarrhea afterwards . Check catechols and also 5hiaa. 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 Not on repalcemen t. check TFTs. [id number] GLENROY MARTI MD , [facility], OFFICE [address] [place] [address] 10/31/2021 13:22:38 11/11/2021 09:15:16 Pre-surgery evaluation 396360392 Z01.818 Summary: has low rahel-opera tive risk [...] prophylaxi s as per surgical protocol Backache 630905310 M54.9 rare use of tramadol - refill sent [id number] GLENROY MARTI MD , [facility], OFFICE [address] [place] [address] 12/23/2021 13:29:28 12/23/2021 14:49:50 Adult health examination 456447867 Z00.00 See risk assessment portion of HPI Counseling 364832751 Z71 .9 including cardiovasc ular risk reduction counseling Cardiovasc ular risk reduction was discussed including benefits and risks of aspirin, exercise goals, healthy eating and healthy weight . Discussion greater than 7.5 minutes. Depression screening 171 748692 Z13.31 depression screening tool administer ed, entered into emr, scored and discussed, time greater than 7.5 minutes Screening for alcohol abuse 117095629 Z13.39 An audit alcohol screening test was performed and scored. Patient was asked about alcohol use, advised about risks of alcohol, and personal risk was assessed, patient agreed to plan and given informatio n about available resources if needed. Discussion including screening and scoring less than 7.5 minutes Mixed hyperlipidemia 267 800811 E78.2 Cholestero l is at goal. LDL 65Continue to work on diet and exercise as discussed Essential hypertension 58872224 I10 Controlled . Continue current regimen. Pain of ri ght hip joint 5355586915 76942 M25.551 xrays r/o DJDES Tylenolhad been told not to take NSAIDs due to hypertensi on. Used to prefer Aleve. If pain is not controlled with Tylenol, will try Aleve (or prescripti on naproxen 500 mg) as needed - let me know. Major depr ession, melancholic type 326976549 F33.1 continue sertraline , follow up with therapist. Has been sensitive to other meds so would prefer to stay on same dose. I need a schedule, I need someplace to go. No thoughts of harming herself. Screening mammography 24 620493 Z12.31 Chronic ob structive pulmonary disease 90953579 J44.9 breathing OK - smoking 1 pk/weekCT showed Upper lobe predominan t centrilobu lar emphysema in 01/25/21 at [facility].uses Breo every other day or every 3 days. Legs get stiff when she uses this daily.No glaucoma Mass of axilla 029566795 R22.2 felt last but none now. ?lymph nodeNothin g palpable todayUS ordered [id number] Everardo Vazquez MD Endocrino logy, [facility] [address] [place] [address] 04/03/2022 09:31:23 04/03/2022 13:42:46 Sweating 536713482 R61 Has c/o diarrhea and intermitte nt sweats. Had normal catechols. 5hiaa was slightly high (issues with urine pH collection ). Not high enough to be suspicious for carcinoid. If sx persist, may need to repeat. Multiple n odules of lung 993665501 R91.8 Adds to complexity . Concern about whether we can definitive ly link lung nodules to a known primary. Chronic ob structive pulmonary disease 77939008 J44.9 Clinically . Recent PFTs (08/30) c/w emphysema or interstiti al lung disease.Di scussed this in relation to smoking and reasons to quit. Vitamin D deficiency 347 61365 E55.9 D= 47.5 (03/31); was 36.4 (06/30); was 33 (01/28); was 13 (07/29). Was taking 1-2 daily supplement but lately more prn. Cigarette smoker 3294557 7 F17.210 Since no clear evidence of metastatic disease, discussed risks/harm s of smoking. 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 Not on replacemen t. Check TFTs. [id number] Walter López MD , [facility], OFFICE [address] [place] [address] 05/16/2022 14:08:49 05/16/2022 14:58:54 Tobacco user 089502207 Z72.0 not discussed today, will discuss at f/usmoking occasional ly per chart review Active or passive immunization 565894111 Z23 pt already had flu vaccinerem inded about shingles vaccine Pain in right hand 76587 61642 92401 M79.641 s/p fall 2 weeks agorepeat hand/wrist xrays given recurrent edema and painok to continue compressio n brace, rest, ice in the interim Pleuritic pain 5400139 R 07.81 new as of last nightreass uring examencour aged to continue monitoring and call with any changes/wo rsening Pain of ri ght hip joint [id number] 27869 M25.551 May xray reviewed - moderate degenerati ve changesPT and ortho referrals sentcall as needed Bone density finding 385 150835 M85.80 results 03/2022 reviewed - low bone massFRAX score reviewed: 10 y risk major risk 11%, hip 3.3%discus sed tx options, for now will optimize vitamin D, calcium, and weight-godwin ring and muscle-str engthening repeat scan 2 years Urgent rosalino alan to urinate [id number] R39.15 POC UA showing trace leuksnot enough urine for culture at appt, will have pt return for this Chronic ob structive pulmonary disease 99094250 J44.9 looking into new pulmonolog ist, has recs from Dr. Vazquez1x refill sent of Sapphire so she has it on hand in the interim Backache [id number] M54.9 takes tramadol sparingly as needed for chronic back painlast fill 01/2022 per masspatwil l reassess at f/u [id number] Walter López MD , [facility], [address] [place] [address] 01/01/2023 13:14:36 01/01/2023 14:31:56 Adult health examination 423932235 Z00.00 Depression screening 171 011472 Z13.31 depression screening tool administer ed. as below. Screening for alcohol abuse 276489835 Z13.39 Alcohol use screening tool administer ed. rec max 7 drinks/wee k. Essential hypertension 54828450 I10 consistent ly above goalincrea se nifedipine to 90mg daily (currently taking 60mg daily)f/u 1 month to reassess Mixed hyperlipidemia 267 369698 E78.2 Cholestero l is at goalContin ue to work on diet and exercise as discussed Screening mammography 24 952061 Z12.31 due Active or passive immunization 252169101 Z23 reminded about shingles vaccinetet anus vaccine will do Increased frequency of urination 875959003 R35.0 POC UA negative, unable to send for culture due to limited supplycall with any new/worsen ing symptoms Chronic ob structive pulmonary disease 20654210 J44.9 needs referral to new pulmonolog ist, she will get the name and let us know where she'd like to godoing well otherwise with current inhaler regimen Impaired f asting glycemia 150987570 R73.01 improving, recent A1C 5.2 Bone density finding 385 611450 M85.80 results 03/2022 reviewed - low bone massFRAX score reviewed: 10 y major risk 11%, hip 3.3%prefer s to continue to optimize vitamin D, calcium, and weight-godwin ring and muscle-str engthening repeat scan 2 years Major depr ession, melancholic type 385281716 F33.1 reports acute on chronic depression does virtual therapy which helpsalso continues on sertraline Tobacco user 344386635 Z 72.0 We discussed your smoking today for more than 3 minutes. Cigarette use is the leading cause of preventabl e disease, disability , and in the [place]. We talked about tools and medication s available to help you in smoking cessation. We discussed utilizing our smoking cessation tennis coach and online resources. Your personal goal: to quit! Multiple n odules of lung 210878896 R91.8 per problem list/forme r PCP CE - non-cancer ous. followed by Dr. Leavitt . 09/04/21 note - surveillan ce is complete. pt interested in low dose CT screening to use as f/u as well, as above. Candidiasis of mouth 797 78865 B37.0 will treat with darian per patient preference continue good oral hygiene after inhaler usecall if not resolving History of subtotal thyroidectomy 631389870 Z90.09 original concern for metastatic CA as multiple lung nodules, PET lit up mass in thyroid, now s/p subtotal thyroidect yeni, not on medication , following with Dr. Vazquez regularly History of partial resection of colon 093950416 Z90.49 pre cancerous polyp removal 2008, gets colonoscop ies q5 years [id number] Walter López MD , [facility], [address] [place] [address] 05/18/2023 11:17:42 05/19/2023 14:44:12 [id number] JANEE SHIELDS MD , [facility], [address] [place] [address] 02/05/2024 13:40:32 02/05/2024 17:40:33 Cough 39245442 R05.9 Essential hypertension 57891990 I10 Has been elevated in the past so will monitor closely. Reduce nifedipine to 60 mg daily. Continue losartan and labetolol. Mixed hyperlipidemia 267 759959 E78.2 She would like to try discontinu ing the statin. Agreed this is fine but we should recheck her cholestero l in a month. Lightheadedness 03675939 8 R42 Mostly with standing. I think [...] the beta fidel. Unintentio nal weight loss 121760138 R63.4 Thinks this was due to breaking her teeth, sore teeth. Advised her to continue to use her protein shakes. Will check some labs as above. Will need to monitor. Chronic ob structive pulmonary disease 16243736 J44.9 Continue inhalers and follow up with pulm. Refilled albuterol - see below. Abnormal gait 81047133 R 26.9 She does have a stiff and tentative gait. Unclear whether this is due to deconditio luisito, her concerns about falling or something neurologic al. Will re-evaluat e at next visit. 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 Not on replacemen t.Update TFTs since having sx. Chronic ob structive pulmonary disease 84505659 J44.9 Clinically . Recent PFTs (08/30) c/w emphysema or interstiti al lung disease.Di scussed this in relation to smoking and reasons to quit. Cigarette smoker 4587381 7 F17.210 Since no clear evidence of metastatic disease, discussed risks/harm s of smoking. Tobacco user 293395120 Z 72.0 counseling . Thyroid fu nction tests abnormal 401430293 R94.6 Not controlled . TSH= 2.3 (03/02) was 1.32 (01/31) ft4= 0.71 (03/02); was 0.7 (07/02) She is having multiple sx that might be c/w insufficie nt thyroid. Low T4 in setting of normal TSH is not c/w primary abnormalit y. Suggests possibilit y of secondary (pituitary ) issue.che k labs. Dizziness 653661219 R42 Not controlled Orthostati cs show now rise in HR with standing (drops systolic > 20 but not hypotensiv e).On labetalol- 150 bid (was 300 bid). decreased a year ago (?06/01?)c quink cortisol/a cth. If OK, may want to review use of labetalol vs. change to alternativ e. Osteopenia with high fracture risk 6980366697 38233 M85.80 BMD @ VMGL1-L4= -0.1 (05/01) .Femoral Neck= -1.9 (05/01)Left Total Hip= -1.5 (05/01)Risk s: thin, white, post-menop ausal and smoker. Has had wrist fx. Update with new baseline. [id number] Everardo Vazquez MD Endocrino logy, [facility] [address] [place] [address] 06/23/2024 13:35:00 06/27/2024 06:21:22 Thyroid function tests abnormal 221569980 R94.6 Not controlled . TSH=4.12 (06/02) was [...] related to thyroid. 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 Not on replacemen t.Update TFTs since TSH is slowly rising (although still WNL). Dizziness 266177898 R42 Not controlled Orthostati cs showed rise in HR with standing (drops systolic > 20 but not hypotensiv e).On labetalol- 150 bid (was 300 bid). decreased a year ago (?06/01?) Checked cortisol/a cth and those were OKMay want to review use of labetalol vs. change to alternativ e. Osteopenia with high fracture risk 7786696835 01934 M85.80 BMD @ VMGL1-L4= -0.1 (05/01) .Femoral Neck= -1.9 (05/01)Left Total Hip= -1.5 (05/01)Risk s: thin, white, post-menop ausal and smoker. Has had wrist fx. Recommend: - Update with new baseline in future.- Talk to PCP about physical therapy focus on exercises that don't make dizziness worse. Chronic ob structive pulmonary disease 45240498 J44.9 Clinically . Recent PFTs (08/30) c/w emphysema or interstiti al lung disease.Di scussed this in relation to smoking and reasons to quit. Cigarette smoker 3452722 7 F17.210 Since no clear evidence of metastatic disease, discussed risks/harm s of smoking. Tobacco user 371887935 Z 72.0 counseling . Health Concerns Section Related Observation LastModified by Organization Detai ls LastModified Time None Recorded Concern Status LastModified by Organization Details LastModified Time None Recorded Advance Directives Directive None Recorded Payers Insurance Date Sequence Insurance Name Policy Number Policy Coppola Covered Member ID Coppola Member ID Guarantor Name 06/23/2024 1 [facility] (MEDICARE REPLACEMENT/ADV ANTAGE - HMO) [id number] Linda Yadi Shanita [id number] Linda Diehl 08/01/2024 1 [facility] (MEDICARE REPLACEMENT/ADV ANTAGE - PPO) [id number] Linda A Carlosan [id number] Linda Shanita 12/17/2021 1 [facility]-CIGNA - [employer] - CIGNA (PPO) [id number] Linda Diehl [id number] Linda Diehl 12/17/2021 1 [facility]-CIGNA - CIGNA (PPO) [id number] Linda Shanita [id number] Linda Diehl 06/16/2024 1 [facility] (MEDICARE REPLACEMENT/ADV ANTAGE - PPO) [id number] Linda Yadi Carlosan [id number] Linda Diehl 07/29/2024 PAYMENT PLAN Linda Diehl 12/17/2021 1 CIGNA [id number] Linda Diehl [id number] Linda Shanita 12/17/2021 1 [place] 2 (POS) [id number] Linda Diehl [id number] Linda Diehl 12/17/2021 1 [facility] - OPEN ACCESS PLUS (PPO) [id number] Linda Diehl [id number] Linda Diehl 12/17/2021 1 [place] [id number] Linda Diehl [id number] Linda Diehl 12/17/2021 1 [employer] - CHOICE POS II (HMO) [id number] Linda Diehl [id number] Linda Diehl 12/17/2021 1 [place] - PERSONAL CHOICE (PPO) [id number] Linda Diehl [id number] Linda Diehl 12/17/2021 1 CIGNA (PPO) Linda Diehl [id number] Linda Diehl 12/17/2021 1 [employer] [facility] - [employer] (MEDICAID HMO) [id number] Linda Diehl [id number] Linda Diehl 12/17/2021 1 [place] NATIONAL [employer] Linda Diehl [id number] Linda Diehl 02/05/2024 2 [employer] (MEDICARE SUPPLEMENT) Linda Diehl [id number] Linda Diehl Notes Date Note Type Note [...] Risk Assesment:Family History of Coronary Artery Disease(father [place] age 62);Does not participate in regular exercise [...] pressure; Has been difficult to control. 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) Back pain - ES tylenol only once a day right hip lot of pain - fermin with weight bearing/walking lipids controlled CATHERINE Garza [address] [place] [address], [phone], [facility] 01/02/2023 08:02:49 4 text/html Hasn't felt well [...] the last month.Drove herself to the hospital ([place]) and was admitted several days (need to request records) Also states she was diagnosed with metastatic cancer at one point in the last few years but then the oncologist left, someone else reviewed the records, stated there was no concerns and it wasn't actually cancer. Has COPD - sees pulm, uses a daily inhaler and albuterol prn JANEE SHIELDS MD [address] [place], [address], [facility] 02/05/2024 16:07:07 4 text/html ThyroidReported bypatient.Previous Evaluation:TSH: [...] or evaluation until current issues came up.a/vmg-smoking [id number] bypatient.ImportanceOn a scale of 1-10 with 1 [...] better (but still high). 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 [...] suspicious. Had lobectomy (07/30) Bx done through [facility] Radiology: 2.2x1.7x2.9 (5 passes)- reported as [...] compared to July 2020. 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 Genomic sequencing [...] or evaluation until current issues came up.a/vmg-smoking [id number] bypatient.ImportanceOn a scale of 1-10 with 1 [...] better (but still high). F/U prn.PULM: [facility] ([place]) Follow-Up: thyroid noduleVMG Tobacco / Vaping Use epLV on 05/03LAst labs on 06/02Last Thyroid US on 1PT had a Ranjith-thyroidectomy in [place] bone density 2021 at [facility] [place] ordered by PCPNO Labs cuedSmoking only occasionallyPT [...] balance. 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 [...] suspicious. Had lobectomy (07/30) Bx done through [facility] Radiology: 2.2x1.7x2.9 (5 passes)- reported as [...] compared to July 2020. Everardo Vazquez MD [address] [place] [address], [phone], [facility] 06/26/2024 18:32:05 OBGyn Episode No OBEpisode recorded.
== END 2025-01-26 14:03 | disposition home or self-care (01) ==
PROVIDERS: PCP Nurse Practitioner Family; Visit Provider Hospitalist
DX: J41.0 Simple chronic bronchitis (principal); R91.8 Other nonspecific abnormal finding of lung field; F17.200 Nicotine dependence, unspecified, uncomplicated; G47.33 Obstructive sleep apnea (adult) (pediatric); Z01.811 Encounter for preprocedural respiratory examination
CPT/HCPCS: 99213; G2211

== ENCOUNTER → 2025-01-26 13:26 | Outpatient (BNVA) | payer MEDICARE, SELFPAY | PROVIDERS: PCP Nurse Practitioner Family; Visit Provider Hospitalist | DX: Z01.811 Encounter for preprocedural respiratory examination (principal); J41.0 Simple chronic bronchitis; R91.8 Other nonspecific abnormal finding of lung field; F17.210 Nicotine dependence, cigarettes, uncomplicated; G47.33 Obstructive sleep apnea (adult) (pediatric) | CPT/HCPCS: 99212 ==

== ENCOUNTER 2025-02-16 13:38 | Outpatient (AMB) | payer MEDICARE, SELFPAY ==
--- OUTSIDE RECORDS SUMMARY | 2025-02-16 13:41 | XMS_ITS | Clinical Summary ---
Author Organization [facility] Address [address] [place] [address] Care Team Providers Care Blood Tester Fowl Name Role Phone Unavailable Primary Care Provider Unavailabl e Social History Tobacco Use Types Packs/Day Years Used Date Smoking Tobacco: Never Assessed Comments Unknown Sex and Gender Information Value Date Recorded Sex Assigned at Not on file Legal Sex Female 1:08 PM EDT Gender Identity Not on file Sexual Orientation Not on file Plan of Treatment Upcoming Encounters Date Type Department Care Team (Late st Contact Info) Description 03/15/2025 1:00 PM EDT Office Visit [facility] [place] [address] [facility] [place] [address] Salvador Tarango MD [address] [address] Health Maintenance Due Date Last Done Comments Hepatitis C Virus Screening 1955 DTaP/Tdap/Td Vaccines (1 - Tdap) 1972 Mammogram 1993 Colonoscopy 1998 Pneumococcal Vaccines 50+ (1 of 1 - PCV) 2003 Zoster (Shingles) Vaccine (1 of 2) 2003 DXA Bone Density (Females,Ag es 65 and older) 2018 COVID-19 Vaccine ( - 2023-2 5 season) 2024 Influenza Vaccine 03/10/2025 RSV Vaccine 60 years and old er and Patients (1 - 1-dose 75+ series) 2028 Hepatitis B Vaccines Aged Out No long er eligible based on patient's age to complete this topic Insurance [facility]
--- OUTSIDE RECORDS SUMMARY | 2025-02-16 13:42 | XMS_ITS ---
Author Name [facility] Organization Unknown Care Team Organization Name Specialty Phone Email Start Date End [facility] 01/13/2025
[2025-02-16 13:49] VITALS: BP 120/70; PULSE 86; BMI 18.0
--- NOTE | 2025-02-16 13:49 | MHC.OFFVIS ---
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: No Allergies Penicillins (PENICILLINS) Allergy (Unknown, Verified 01/26/25 13:38) ITCHING Medication List - Last Reconciled 02/16/25 by Xu Mckenzie MD benzonatate 200 mg PO BID PRN 30 days budesonide-formoterol 160-4.5 mcg/actuation 2 puffs inhalation BID 90 days fluticasone propion-salmeterol 113-14 mcg/actuation (AirDuo RespiClick) 1 inh inhalation Q12H 30 days losartan 100 mg PO DAILY mecobalamin (vitamin B12) (B12 Active) 2,000 mcg (2 x 1,000 mcg) PO DAILY metoprolol tartrate 25 mg PO Q12H PRN 5 days nifedipine ER 30 mg PO DAILY sertraline 100 mg PO BID tramadol 50 mg PO DAILY PRN HPI Comments Details: Thank you for referring Linda in cardiology consultation today for preoperative cardiovascular risk stratification. She has very limited functionality due to her right hip issues and potentially scheduled for hip replacement surgery in the future. She also has requirement for oral surgery but she is not sure as to which 1 needs to be done 1st. She has significant risk factors with strong family history on the father's side for premature coronary artery disease and atherosclerosis, herself with smoking, hypertension. She does have presence of coronary calcification on testing reported in the past although I do not see on the reporting done through the system here. She denies any clear exertional symptoms although as mentioned she has very limited functional capacity. She does see Pulmonary for COPD. She has never had a myocardial event including no history of myocardial infarction or prior revascularization. Recently during the office visit she was noted to have rapid heart rate and she had symptoms of palpitations although EKGs then done right away although her symptoms have subsided not show any significant abnormality. EKGs was done subsequently in the ER where she was referred to an this was within normal limits as well. She was prescribed PRN metoprolol therapy which she has not had to take. She gets these symptoms of palpitation rapid heart rate intermittently and sporadically. There was no clear trigger factors. Does have family history of atrial fibrillation in her brother. She denies any lightheadedness, syncope. Denies any orthopnea, PND, leg edema. No clear claudication like symptoms. [facility] Medical History Nicotine dependence, cigarettes, uncomplicated History of mammogram Thyroid cancer ANA (obstructive sleep apnea) Pulmonary nodules COPD (chronic obstructive pulmonary disease) Surgical History History of tonsillectomy History of partial thyroidectomy History of colonoscopy (~06/08/18) Previous back surgery H/O laminectomy History of bowel resection Family History Sister Depression Brother Depression HTN (hypertension) Father HTN (hypertension) Heart disease Paternal Grandfather HTN (hypertension) Brother Heart disease Other FH: mental illness Social History Housing: House Alcohol intake: current Patient Tobacco Use Status: Current everyday Tobacco user Tobacco use type: Cigarette Cigarettes Per Day: 4 Years Smoked: (onset 15yo, 1/2-1ppd x 54yrs, now <1/4ppd - 35PYH) e-Cigarette/Vaping Use: Never Used service: No Current occupational status: retired Cognitive needs: No Hearing needs: Yes (need hearing checked) Vision needs: Yes (glasses) Review of Systems Const Denies chills, Denies daytime sleepiness, Denies fatigue, Denies fever(s), Denies frequent falls, Denies poor appetite, Denies snoring, Denies stops breathing during sleep, Denies weakness, Denies weight gain and Denies weight loss Eyes Denies loss of vision ENT Denies dizziness and Denies hearing loss Card Denies chest pain, Denies claudication, Denies leg edema, Denies lightheadedness, Denies palpitations, Denies dyspnea, Denies dyspnea on exertion and Denies orthopnea Resp Denies cough, Denies excessive phlegm production, Denies dyspnea, Denies dyspnea on exertion, Denies snoring and Denies wheezing GI Denies abdominal pain, Denies hematochezia, Denies change in bowel habits, Denies nausea and Denies vomiting Denies urinary frequency and Denies dysuria Musc Denies arthralgias, Denies muscle weakness, Denies numbness and Denies other (frequent falls) Skin/Breast Denies nail changes and Denies rash Neuro Denies Abnormal speech present, Denies dizziness, Denies frequent falls, Denies loss of vision, Denies memory loss, Denies numbness and Denies weakness Psych Denies depression and Denies memory loss Endo Denies fatigue and Denies palpitations Narayan/Lymph Reports easy bruising and Reports other (anemia) Aller/Immun Denies wheezing Physical Exam Vital Signs: Last Vital Signs Pulse 86 02/16/25 13:49 BP 120/70 02/16/25 13:49 BMI result Body Mass Index 18.0 Const General: cooperative, comfortable, no acute distress, alert, awake and well groomed Nutritional Appearance: underweight and other (Frail appearing elderly woman) Orientation/consciousness: patient oriented x3 Limitations: ambulation with walker HEENT Head: Yes normocephalic and Yes atraumatic Neck Neck: Yes trachea midline, Yes supple and Yes no JVD Resp Effort & Inspection: normal respiratory effort Auscultation: diminished lung sounds Cardio Jugular venous distension: no JVD Palpation: normal PMI Rate: regular rate Rhythm: regular rhythm Heart sounds: S1 normal heart sound present, S2 normal heart sound present, no click, no gallops, no murmurs and no rubs GI Auscultation: normal bowel sounds Skin General skin exam: no rashes or lesions noted Neuro General: patient oriented x3 and no focal motor deficits Speech: No Abnormal speech present Extrem General: Yes no clubbing, cyanosis or edema Psych Appearance: grossly normal Assessment & Plan Assessment & Plan (1) Preoperative cardiovascular examination: Code(s): Z01.810 - Encounter for preprocedural cardiovascular examination Category: Medical Plan: Preoperative cardiovascular risk stratification this elderly woman with significant cardiovascular risk factors with limited functional capacity to undergo intermediate risk surgery. We discussed cardiac evaluation prior to noncardiac surgery. Given her significant risk factors and limited exercise capacity she would benefit from further risk stratification with a myocardial perfusion imaging with vasodilators study. This was discussed with her. This will be scheduled in near future. If this is completely within normal limits, her risk for perioperative cardiovascular morbidity and mortality will be low to intermediate. This was discussed with her. Will also obtain echocardiogram to assess for LV systolic and diastolic function to evaluate for valvular heart disease in the pulmonary hypertension. These tests will be scheduled in near future. Further recommendations based on the findings of these test results. Symptoms of palpitation with family history of atrial fibrillation. Will obtain a 2 week Holter monitor as well as echocardiogram as above to assess for any cardiac arrhythmias such as atrial fibrillation. Will follow up in the clinic in 3 months time, sooner p.r.n.. Thank you for allowing me to partake in her care Orders: Orders CA lexiscan stress w ajay Today Z01.810 - Encounter for preprocedural cardiovascular examination CA echo transthoracic complete Today Z01.810 - Encounter for preprocedural cardiovascular examination ECG 14 day holter monitor Today R00.2 - Palpitations Coding Level of Care Code New Pt Level 4 (48738) Complex EM visit Add On G2211 Diagnoses Preoperative cardiovascular examination Z01.810
== END 2025-02-16 14:38 | disposition home or self-care (01) ==
PROVIDERS: PCP Nurse Practitioner Family; Visit Provider Internal Medicine Cardiovascular Disease
DX: Z01.810 Encounter for preprocedural cardiovascular examination (principal)
CPT/HCPCS: 99214; G2211

== ENCOUNTER → 2025-02-16 13:38 | Outpatient (BNVA) | payer MEDICARE, OTHER, SELFPAY | PROVIDERS: PCP Nurse Practitioner Family; Visit Provider Internal Medicine Cardiovascular Disease | DX: Z01.810 Encounter for preprocedural cardiovascular examination (principal) | CPT/HCPCS: 99212 ==

== ENCOUNTER → 2025-02-20 12:37 | Outpatient (REF) | payer MEDICARE, OTHER, SELFPAY ==
--- NOTE | 2025-02-20 12:43 | HM_ITS ---
Conclusion: 1. Patient was monitored for total period of 14 days 2. Baseline was normal sinus rhythm with average heart rate of 62 beats per minute 3. No significant pauses noted but frequent sinus bradycardia noted with 56.6% of the time heart rate below 60 beats per minute 4. Occasional PACs noted without sustained arrhythmias 5. Patient marked the counter 1 time with no arrhythmias MTDD
--- OUTSIDE RECORDS SUMMARY | 2025-02-20 13:31 | XMS_ITS | Data Portability ---
Author Organization [facility], [facility] Address [address] [place] [address] Care Team Providers Care It Help Desk Analyst Name Role Phone EVERARDO VAZQUEZ Chute Man EMELIA ELIZABETH Primary Care Provider DEANNA JIMENEZ Orthopedist PARVEEN DELVALLE, DMITRIY Social Service Worker [phone] Assessment Encounter Date Assessment Date Assessment LastModified [...] recorded. Lab TSH, serum or plasma 2023 [facility], [address] [place] [address], [id number], 12:31:07 T4, free, serum 2023 [facility], [address] [place] [address], [address], 11:52:26 T3, total, serum 2023 [facility], [address] [place] [address], [address], 11:09:06 FSH (follicle-s timulating hormone), serum 2023 024 [facility], [address] [place] [address], 350[address], 11:09:07 igf-1 (insulin-li ke growth factor), serum 2023 [facility], [address] [place] [address], 469[address], 14:43:26 cortisol, am, serum 2023 [facility], [address] [place] [address], [address], 14:43:25 acth, plasma 2023 024 [facility], [address] [place] [address], [address], 14:43:27 prolactin, serum 2023 [facility], [address] [place] [address], [address], 4 14:43:27 lipid panel, serum 2023 024 [facility], [address] [place] [address], [address], 4 11:46:37 CBC 2023 024 [facility], [address] [place] [address], [address], 4 15:23:54 TSH, serum or plasma 2023 024 [facility], [address] [place] [address], [address], 4 15:23:40 BMP, serum or plasma 2023 024 [facility], [address] [place] [address], [address], 4 11:46:37 urinalysis, dipstick 2022 023 [facility], [address] [place] [address], [address], 3 13:57:42 Referral None recorded. Procedures None recorded. Surgeries None recorded. Imaging MAMMO, screening, tomosynthes is, bilateral 2022 023 [facility]), [address], [place], [place], [address], 3 16:06:19 LDCT, chest, for lung cancer screening - Please enroll this patient in the LDCT Lung Cancer Screening Program (for ordering, follow up and shared decision making) has hx known nodules. Dr. Leavitt 09/04/212022 023 [facility], [address] [place], [address], 3 17:26:04 Medication Orders albuterol sulfate HFA 90 mcg/actuati on aerosol inhaler 2023 024 MICHELE [facility], [address] [place] [address], [facility] [address], [place], [place], [id number], 4 14:18:20 clotrimazol e 10 mg darian 2022 023 [email or web address] [facility], [address] [place] [address], [facility] [address], [place], [place], [id number], 4 14:14:41 Patient TargetsNo targets recorded. Patient Instructions Encounter Date Encounter Id Patient Instructions Last Modified By Organization Details Last Modified Time 01/01/2023 [id number] high cholesterol lifestyle changes Not available 01/01/2023 14:40:56 advance directives: care instructions Not available 01/01/2023 14:40:57 preventing falls: care instructions Not available 01/01/2023 14:40:57 hearing loss: care instructions Not available 01/01/2023 14:40:56 well visit, over 65: care instructions Not available 01/01/2023 14:40:57 05/05/2024 [id number] - Get labs done before 8AM. [email or web address] Not available 05/05/2024 12:46:40 6 months/ 40 minutes Counseling done Contemplating quitting Goal for follow up visit My Health To Do List go to [employer] [email or web address] or call contact [email or web address] Counseling done Goal for follow up visit My Health To Do List Not available 05/03/2024 09:03:04 06/23/2024 [id number] [email or web address] Not available 06/26/2024 18:30:45 6 months/ 40 minutes Counseling done Contemplating quitting Goal for follow up visit My Health To Do List go to [employer] [email or web address] or call contact [email or web address] Counseling done Goal for follow up visit [...] furth er confi rmati on Not Available [address], [address], 12/25/2022 16:23:00 12/26/1912/25/2022 HGB A1C estimated average glucose 102.5 mg/dL Not Available [address], [address], 12/25/2022 16:23:00 12/26/1912/25/2022 VITAM IN D 25-HY DROXY TOTAL vitamin [...] er than 30 ng/mL . Not Available [address], [address], 12/25/2022 16:26:10 12/26/1912/25/2022 TSH TSH 1.79 uIU/m L 0.50-6 .00 The Ameri can Colle ge of Endoc rinol ogy and Ameri can Thyro id Assoc iatio n recom mend goal TSH value s betwe en 0.4-4 .0 mIU/m L. Not Available [address], [address], 12/25/2022 16:26:15 12/26/1912/25/2022 BASIC METAB OLIC PANEL glucose 120 mg/dL 70-100 high Not Available [address], [address], 12/25/2022 16:33:09 12/26/19 23 12/25/2022 BASIC METAB OLIC PANEL BUN 7 mg/dL 7-18 Not Available [address], [address], 12/25/2022 16:33:09 12/26/1912/25/2022 BASIC METAB OLIC PANEL creatinine 0.8 mg/dL 0.8-1. 3 Not Available [address], [address], 12/25/2022 16:33:09 12/26/19 23 12/25/2022 BASIC METAB OLIC PANEL B/C 8.8 ratio Not Available [address], [address], 12/25/2022 16:33:09 12/26/1912/25/2022 BASIC METAB OLIC PANEL [...] be used in pregn junaid. Not Available [address], [address], 12/25/2022 16:33:09 12/26/19 23 12/25/2022 BASIC METAB OLIC PANEL sodium 141 mmol/ L 136-14 5 Not Available [address], [address], 12/25/2022 16:33:09 12/26/19 23 12/25/2022 BASIC METAB OLIC PANEL potassium 3.6 mmol/ L 3.5-5. 1 Not Available [address], [address], 12/25/2022 16:33:09 12/26/19 23 12/25/2022 BASIC METAB OLIC PANEL chloride 98 mmol/ L 96-107 Not Available [address], [address], 12/25/2022 16:33:09 12/26/19 23 12/25/2022 BASIC METAB OLIC PANEL anion gap 11.7 5.0-15 .0 Not Available [address], [address], 12/25/2022 16:33:09 12/26/19 23 12/25/2022 BASIC METAB OLIC PANEL CO2 31 mmol/ L 21-32 Not Available [address], [address], 12/25/2022 16:33:09 12/26/19 23 12/25/2022 BASIC METAB OLIC PANEL calcium 9.4 mg/dL 8.5-10 .3 Not Available [address], [address], 12/25/2022 16:33:09 12/26/19 23 12/25/2022 LIPID PANEL cholesterol 178 mg/dL <200 mg/dl Rola able 200-2 39 mg/dl Borde rline High >240 mg/dl High Not Available [address], [address], 12/25/2022 16:33:11 12/26/19 23 12/25/2022 LIPID PANEL triglyceride s 76 mg/dL <150 mg/dL Mercedes l 150-1 99 mg/dL Borde rline High 200-4 99 mg/dL High >500 mg/dL Very High Not Available [address], [address], 12/25/2022 16:33:11 12/26/19 23 12/25/2022 LIPID PANEL direct HDL 80 mg/dL <40 mg/dl - Major Risk for CHD >60 mg/dl - Negat wesley Risk for CHD Not Available [address], [address], 12/25/2022 16:33:11 12/26/19 23 12/25/2022 DIREC T [...] r is not braxton liang. Not Available [address], [address], 12/25/2022 16:33:14 01/02/20 23 01/01/2023 POC UA glu UA NEGATI VE Not Available [facility] [address] [place] [address], [address], 01/01/2023 13:57:42 01/02/20 23 01/01/2023 POC UA clarity UA CLEAR Not Available [facility] [address] [place] [address], [address], 01/01/2023 13:57:42 01/02/20 23 01/01/2023 POC UA uro UA 0.2000 Not Available [facility] [address] [place] [address], [address], 01/01/2023 13:57:42 01/02/20 23 01/01/2023 POC UA ket UA NEGATI VE Not Available [facility] [address] [place] [address], [address], 01/01/2023 13:57:42 01/02/20 23 01/01/2023 POC UA pro UA NEGATI VE Not Available [facility] [address] [place] [address], 79[address], 01/01/2023 13:57:42 01/02/20 23 01/01/2023 POC UA nit UA NEGATI VE Not Available [facility] [address] [place] [address], 58[address], 01/01/2023 13:57:42 01/02/20 23 01/01/2023 POC UA rebekah UA NEGATI VE Not Available [facility] [address] [place] [address], [address]64, 01/01/2023 13:57:42 01/02/20 23 01/01/2023 POC UA pH UA 7.0000 Not Available [facility] [address] [place] [address], 358[address], 01/01/2023 13:57:42 01/02/20 23 01/01/2023 POC UA SG UA 1.0200 Not Available [facility] [address] [place] [address], 19117, 01/01/2023 13:57:42 01/02/20 23 01/01/2023 POC UA color UA YELLOW Not Available [facility] [address] [place] [address], 18[address], 01/01/2023 13:57:42 01/02/20 23 01/01/2023 POC UA blo UA NEGATI VE Not Available [facility] [address] [place] [address], 23544, 01/01/2023 13:57:42 01/02/20 23 01/01/2023 POC UA bren UA NEGATI VE Not Available [facility] [address] [place] [address], 17458, 01/01/2023 13:57:42 02/05/20 24 02/05/2024 HGB A1C [...] furth er confi rmati on Not Available [address], [address], 02/05/2024 15:16:31 02/05/20 24 02/05/2024 HGB A1C estimated average glucose 105.4 mg/dL Not Available [address], 30196, 02/05/2024 15:16:31 02/05/20 24 02/05/2024 CBC WBC 7.83 K/ L 3.98-1 0.04 Not Available [address], [address]27, 02/05/2024 15:23:54 02/05/20 24 02/05/2024 CBC RBC 4.36 M/ L 3.93-5 .22 Not Available [address], 77[address], 02/05/2024 15:23:54 02/05/20 24 02/05/2024 CBC HGB 14.3 g/dL 11.2-1 5.7 Not Available [address], [address], 02/05/2024 15:23:54 02/05/20 24 02/05/2024 CBC HCT 41.8 % 34.1-4 4.9 Not Available [address], 92413, 02/05/2024 15:23:54 02/05/20 24 02/05/2024 CBC MCV 95.9 fL 79.4-9 4.8 high Not Available [address], [address]46, 02/05/2024 15:23:54 02/05/20 24 02/05/2024 CBC MCH 32.8 pg 25.6-3 2.2 high Not Available [address], 82694, 02/05/2024 15:23:54 02/05/20 24 02/05/2024 CBC MCHC 34.2 g/dL 32.2-3 5.5 Not Available [address], 59150, 02/05/2024 15:23:54 02/05/20 24 02/05/2024 CBC plt 225 K/ L 182-36 9 Not Available [address], 87[address], 02/05/2024 15:23:54 02/05/20 24 02/05/2024 CBC MPV 10.8 fL 9.4-12 .3 Not Available [address], 85804, 02/05/2024 15:23:54 02/05/20 24 02/05/2024 CBC neut% 71.8 % 34.0-7 1.1 high Not Available [address], [address], 02/05/2024 15:23:54 02/05/20 24 02/05/2024 CBC neut# 5.62 1.56-6 .13 Not Available [address] [place], [address], 02/05/2024 15:23:54 02/05/20 24 02/05/2024 CBC lymph % 20.9 % 19.3-5 1.7 Not Available [address], [address], 02/05/2024 15:23:54 02/05/20 24 02/05/2024 CBC lymph # 1.64 K/ L 1.18-3 .74 Not Available [address], [address]255, 02/05/2024 15:23:54 02/05/20 24 02/05/2024 CBC mono% 5.6 % 4.7-12 .5 Not Available [address], [address], 02/05/2024 15:23:54 02/05/20 24 02/05/2024 CBC mono# 0.44 0.24-0 .56 Not Available [address], [address], 02/05/2024 15:23:54 02/05/20 24 02/05/2024 CBC eo% 0.8 % 0.7-5. 8 Not Available [address], [address]85, 02/05/2024 15:23:54 02/05/20 24 02/05/2024 CBC eo# 0.06 0.04-0 .36 Not Available [address], 25[address], 02/05/2024 15:23:54 02/05/20 24 02/05/2024 CBC baso% 0.6 % 0.1-1. 2 Not Available [address], 716[address], 02/05/2024 15:23:54 02/05/20 24 02/05/2024 CBC baso# 0.05 0.00-0 .08 Not Available [address], [address], 02/05/2024 15:23:54 02/05/20 24 02/05/2024 CBC RDW-CV 12.3 % 11.7-1 4.4 Not Available [address], [address], 02/05/2024 15:23:54 02/05/20 24 02/05/2024 CBC Ig% 0.300 % 0.000- 1.500 Ig % >0.5 Indic ates possi ble Left Shift Not Available [address], [address], 02/05/2024 15:23:54 02/05/20 24 02/05/2024 CBC Ig# 0.020 0.000- 0.093 Not Available [address], [address], 02/05/2024 15:23:54 02/05/20 24 02/05/2024 CBC NRBC% 0.0 % 0.0-0. 2 Not Available [address], [address], 02/05/2024 15:23:54 02/05/20 24 02/05/2024 CBC NRBC# 0.000 0.000- 0.012 Not Available [address], [address], 02/05/2024 15:23:54 02/05/20 24 02/08/2024 BASIC METAB OLIC PANEL glucose 113 mg/dL 70-100 high Not Available [address], 15[address], 02/08/2024 11:46:36 02/05/20 24 02/08/2024 BASIC METAB OLIC PANEL BUN 16 mg/dL 7-18 Not Available [address], [address], 02/08/2024 11:46:36 02/05/20 24 02/08/2024 BASIC METAB OLIC PANEL creatinine 0.7 mg/dL 0.8-1. 3 low Not Available [address], [address], 02/08/2024 11:46:36 02/05/20 24 02/08/2024 BASIC METAB OLIC PANEL B/C 22.9 ratio Not Available [address], [address], 02/08/2024 11:46:36 02/05/20 24 02/08/2024 BASIC METAB [...] be used in pregn junaid. Not Available [address], [address], 02/08/2024 11:46:36 02/05/20 24 02/08/2024 BASIC METAB OLIC PANEL sodium 142 mmol/ L 136-14 5 Not Available [address], 827[address], 02/08/2024 11:46:36 02/05/20 24 02/08/2024 BASIC METAB OLIC PANEL potassium 4.5 mmol/ L 3.5-5. 1 Not Available [address], [address], 02/08/2024 11:46:36 02/05/20 24 02/08/2024 BASIC METAB OLIC PANEL chloride 102 mmol/ L 96-107 Not Available [address], 7[address], 02/08/2024 11:46:36 02/05/20 24 02/08/2024 BASIC METAB OLIC PANEL anion gap 11.9 5.0-15 .0 Not Available [address], 614[address], 02/08/2024 11:46:36 02/05/20 24 02/08/2024 BASIC METAB OLIC PANEL CO2 28 mmol/ L 21-32 Not Available [address], 249[address], 02/08/2024 11:46:36 02/05/20 24 02/08/2024 BASIC METAB OLIC PANEL calcium 9.5 mg/dL 8.5-10 .3 Not Available [address], [address], 02/08/2024 11:46:36 02/05/20 24 02/08/2024 LIPID PANEL cholesterol 204 mg/dL <200 mg/dl Rola able 200-2 39 mg/dl Borde rline High >240 mg/dl High Not Available [address], [address], 02/08/2024 11:46:37 02/05/20 24 02/08/2024 LIPID PANEL triglyceride s 63 mg/dL <150 mg/dL Mercedes l 150-1 99 mg/dL Borde rline High 200-4 99 mg/dL High >500 mg/dL Very High Not Available [address], [address], 02/08/2024 11:46:37 02/05/20 24 02/08/2024 LIPID PANEL direct HDL 72 mg/dL <40 mg/dl - Major Risk for CHD >60 mg/dl - Negat wesley Risk for CHD Not Available [address], [address], 02/08/2024 11:46:37 02/05/20 24 02/08/2024 DIREC T [...] r is not braxton tavera. Not Available [address], [address], 02/08/2024 11:46:38 02/05/20 24 02/08/2024 TSH TSH 1.32 uIU/m L 0.50-6 .00 The Ameri can Colle ge of Endoc rinol ogy and Ameri can Thyro id Assoc iatio n recom mend goal TSH value s betwe en 0.4-4 .0 mIU/m L. Not Available [address], [address], 02/08/2024 15:23:40 02/29/20 24 03/01/2024 FREE T4 free T4 0.71 NG/dL 0.75-1 .54 low Not Available [address], [address], 03/01/2024 10:48:50 02/29/20 24 03/01/2024 VITAM IN [...] er than 30 ng/mL . Not Available [address], [address], 03/01/2024 10:55:50 02/29/20 24 03/01/2024 TSH TSH 2.30 uIU/m L 0.50-6 .00 The Ameri can Colle ge of Endoc rinol ogy and Ameri can Thyro id Assoc iatio n recom mend goal TSH value s betwe en 0.4-4 .0 mIU/m L. Not Available [address], [address], 03/01/2024 11:03:38 05/31/20 24 05/31/2024 FREE T4 free T4 0.80 NG/dL 0.75-1 .54 Not Available [address], [address], 05/31/2024 11:52:26 05/31/20 24 05/31/2024 TSH TSH 4.12 uIU/m L 0.50-6 .00 The Ameri can Colle ge of Endoc rinol ogy and Ameri can Thyro id Assoc iatio n recom mend goal TSH value s betwe en 0.4-4 .0 mIU/m L. Not Available [address], [address], 05/31/2024 12:31:07 05/31/20 24 06/01/2024 TOTAL T3 total T3 1.28 NG/mL 0.70-1 .70 Not Available [address], [address], 06/01/2024 11:09:06 05/31/20 24 06/01/2024 FSH FSH 70.6 mIU/m L Male: 1.0 - 42.5 mIU/m L Femal e Ovula ting: Folli cular Phase : 2.7 - 15.4 mIU/m L Peak: 3.9 - 22.0 mIU/m L Lutea l Phase : 1.0 - 14.4 mIU/m L Postm enopa usal: 25.0 - 160.0 mIU/m L Not Available [address], [address], 06/01/2024 11:09:07 05/31/20 24 06/01/2024 LIPID PANEL cholesterol 219 mg/dL <200 mg/dl Rola able 200-2 39 mg/dl Borde rline High >240 mg/dl High Not Available [address], [address], 06/01/2024 14:38:40 05/31/20 24 06/01/2024 LIPID PANEL triglyceride s 150 mg/dL <150 mg/dL Mercedes l 150-1 99 mg/dL Borde rline High 200-4 99 mg/dL High >500 mg/dL Very High Not Available [address], [address], 06/01/2024 14:38:40 05/31/20 24 06/01/2024 LIPID PANEL direct HDL 70 mg/dL <40 mg/dl - Major Risk for CHD >60 mg/dl - Negat wesley Risk for CHD Not Available [address], [address], 06/01/2024 14:38:40 05/31/2006/01/2024 LDL - CALCU LATED [...] r is not braxton tavera. Not Available [address], [address], 06/01/2024 14:38:42 05/31/20 24 06/01/2024 BASIC METAB OLIC PANEL glucose 104 mg/dL 70-100 high Not Available [address], [address], 06/01/2024 15:00:52 05/31/20 24 06/01/2024 BASIC METAB OLIC PANEL BUN 14 mg/dL 7-18 Not Available [address], [address], 06/01/2024 15:00:52 05/31/20 24 06/01/2024 BASIC METAB OLIC PANEL creatinine 0.8 mg/dL 0.8-1. 3 Not Available [address], [address]84, 06/01/2024 15:00:52 05/31/20 24 06/01/2024 BASIC METAB OLIC PANEL B/C 17.5 ratio Not Available [address], [address], 06/01/2024 15:00:52 05/31/20 24 06/01/2024 BASIC METAB [...] be used in pregn junaid. Not Available [address], [address], 06/01/2024 15:00:52 05/31/2006/01/2024 BASIC METAB OLIC PANEL sodium 144 mmol/ L 136-14 5 Not Available [address], [address], 06/01/2024 15:00:52 05/31/2006/01/2024 BASIC METAB OLIC PANEL potassium 4.1 mmol/ L 3.5-5. 1 Not Available [address], 81651, 06/01/2024 15:00:52 05/31/2006/01/2024 BASIC METAB OLIC PANEL chloride 104 mmol/ L 96-107 Not Available [address], [address], 06/01/2024 15:00:52 05/31/2006/01/2024 BASIC METAB OLIC PANEL anion gap 9.8 5.0-15 .0 Not Available [address], [address], 06/01/2024 15:00:52 05/31/2006/01/2024 BASIC METAB OLIC PANEL CO2 30 mmol/ L 21-32 Not Available [address], 8[address], 06/01/2024 15:00:52 05/31/2006/01/2024 BASIC METAB OLIC PANEL calcium 9.7 mg/dL 8.5-10 .3 Not Available [address], [address], 06/01/2024 15:00:52 05/31/20 24 06/07/2024 IGF 1, LC/MS igf 1, lc/MS 129 NG/mL 34-245 Not Available [facility] [address], [place], [address], 06/07/2024 14:43:26 05/31/2006/07/2024 IGF 1, LC/MS Z score (female) 0.4 SD -2.0 - +2.0 This test was devel oped and its arnold tical perfo rmanc e kamari cteri stics have been deter mined by [facility]. It has not been clear ed or appro ariel by FDA. This assay has been valid ated pursu ant to the CLIA regul ation s and is used for clini laney purpo ses. Not Available [facility] [address], [place], [address], 06/07/2024 14:43:26 05/31/20 24 06/07/2024 ACTH, PLASM A acth, plasma 18 pg/mL 6-50 Refer ence range appli es only to speci mens colle cted betwe en 7am-1 0am. Not Available [facility] [address], [place], [address], 06/07/2024 14:43:26 05/31/20 24 06/07/2024 PROLA CTIN prolactin 9.4 NG/mL normal Refer ence Range Femal es Non-p regna nt 3.0-3 0.0 Pregn ant 10.0- 209.0 Postm enopa usal 2.0-2 0.0 Not Available [facility] [address], [place], [address], 06/07/2024 14:43:27 04/24/2004/24/2023 LDCT, chest , for lung cance r scree luisito No observ ation record ed. [facility] [address] [facility], [place], [address], 04/28/2023 17:05:43 04/27/20 23 04/27/2023 MAMMO , [...] was mailed to your patien t indica madhug the result s and recomm endati [...] Reji francis Physic frank: Jai Montaño ms [facility] (Imaging) [address], [place], [address], 04/27/2023 16:30:52 Result Notes Documentation Provider Name [...] follow-up. OVERALL ASSESSMENT CATEGORY BI-RADS-1: Negative. The [employer] recommends annual screening mammography beginning at age 40 for women with average risk of breast cancer. ELECTRONICALLY SIGNED: Ronald Frausto M.D. on 04/27/2023 at 04:05:17 PM Reading Physician: Ronald Contreras LPN [facility] 04/27/2023 16:30:52 Problems Name Problem SNOMED Code Status Onset Date Resolution Date Notes Provider Name and Address Organization Details Recorded Time Pain of joint 81865396 Completed 01/01/2023 CATHERINE Garza [address] [place] [address], [phone] , [facility] 3 14:47:10 Backache 455825384 Completed 11/15/2014 Yeny Elizabeth NP [address] [place] [address], [phone] , [facility] 5 20:40:22 Sinusiti s 51014861 Completed 11/15/2014 Yeny Elizabeth NP [address] [place] [address], [address] , [facility] 5 20:43:58 Sleep apnea 79585294 Active Not Available [facility] 4 00:24:30 Backache 349990195 Active Not Available [facility] 4 00:24:29 Impaired fasting glycemia 348454060 Active 2017 Not Available [facility] 4 00:24:29 Vitamin D deficien cy 92435585 Active 2020 Not Available [facility] 4 00:24:29 Multiple nodules of lung 759131406 Active 2020 non-canc erous. followed by Dr. Julio lawrence. 09/04/21 note - surveill ance is complete . Not Available [facility] 4 00:24:30 Chronic obstruct wesley pulmonar y disease 04040871 Active 2020 PFT 1 Not Available [facility] 4 00:24:29 Osteoart hritis of right hip joint 67201088610 9107 Active 2021 follows w/ [facility]. Not Available [facility] 4 00:24:29 History of subtotal thyroide ctomy 847228519 Active 2021 Not Available [facility] 4 00:24:30 Decrease d body mass index 3734445 Completed 202101/01/2023 CATHERINE Garza [address] [place] [address], [phone] , [facility] 3 13:54:15 Bone density finding 081567394 Active 2022 Not Available [facility] 4 00:24:29 Major depressi on, melancho lic type 000177916 Active 2022 Not Available [facility] 4 00:24:29 History of partial resectio n of colon 639044052 Active 2022 Not Available [facility] 4 00:24:30 Mixed hyperlip idemia 728513108 Active Not Available [facility] 4 00:24:29 Head and neck swelling 475559148 Completed 200206/29/2013 Not Available [facility] 3 02:04:11 Single major depressi ve episode, mild Completed 200611/15/2014 Yeny Elizabeth NP [address] [place] [address], [address] , [facility] 5 20:42:37 Benign neoplasm of skin of trunk, excludin g scrotum Completed 200506/29/2013 Not Available [facility] 3 02:04:05 [facility] hyperten camryn 44306304 Active Not Available [facility] 4 00:24:30 Chronic nonalcoh olic liver disease 13606522 Active Not Available [facility] 4 00:24:30 Gastroes ophageal reflux disease 124135252 Active Not Available [facility] 4 00:24:29 Non-toxi c uninodul ar goiter 622355143 Completed 11/15/2014 Yeny Elizabeth NP [address] [place] [address], [address] , [facility] 5 20:42:37 Anxiety state 081692100 Completed 11/15/2014 Yeny Elizabeth NP [address] [place] [address], [address] , [facility] 5 20:42:37 Acute pharyngi tis 382680463 Completed 06/29/2013 Not Available [facility] 3 02:01:17 Allergic rhinitis 98599489 Active Not Available [facility] 4 00:24:30 Epidermo id cyst of skin [id number] Completed 200506/29/2013 Not Available [facility] [place] 3 02:02:53 Elevated blood-pr essure reading without diagnosi s of hyperten camryn [id number] Completed 200211/15/2014 Yeny Elizabeth NP [address] [place] [address], [id number] , [facility] 5 20:40:22 Organic sleep apnea 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 Completed 11/15/2014 Yeny Elizabeth NP [address] [place] [address], [id number] , [facility] 5 20:40:22 Organic sleep disorder [id number] Completed 11/15/2014 Yeny Elizabeth NP [address] [place] [address], [id number] , [facility] 5 20:40:22 Acute bronchit is 95821147 Completed 06/29/2013 Not Available [facility] 3 02:01:36 Malaise and fatigue [id number] Completed 06/29/2013 Not Available [facility] 3 02:00:18 Blood in urine 62867430 Completed 200511/15/2014 Yeny Elizabeth NP [address] [place] [address], [id number] , [facility] 5 20:43:58 Carpal tunnel syndrome [id number] Active 2003 surgery 2010 Not Available [facility] [place] 4 00:24:30 Kidney stone 42949486 Completed 200701/01/2023 CATHERINE Garza [address] [place] [address], [address] , [facility] 3 14:47:07 Ureteric stone 11154233 Completed 200511/15/2014 Yeny Elizabeth NP [address] [place] [address], [address] , [facility] 5 20:43:58 Right upper quadrant pain 159354803 Completed 06/29/2013 Not Available [facility] [place] 3 02:03:18 Sleep disorder 49966698 Completed 11/15/2014 Yeny Elizabeth NP [address] [place] [address], [address] , [facility] 5 20:40:22 Orthosta tic hypotens ion 95292115 Completed 11/15/2014 Yeny Elizabeth NP [address] [place] [address], [address] , [facility] 5 20:40:22 Lymphade nopathy 22930547 Completed 200206/29/2013 Not Available [facility] [place] 3 02:03:13 Tobacco user 862174040 Completed 200211/15/2014 Yeny Elizabeth NP [address] [place] [address], [address] , [facility] 5 20:42:37 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 200511/15/2014 Yeny Elizabeth NP [address] [place] [address], [address] , [facility] 5 20:43:58 Sprain of ankle 34564721 Completed 200406/29/2013 Not Available [facility] 3 02:02:51 Syncope and collapse 409325378 Completed 11/15/2014 Yney Elizabeth NP [address] [place] [address], [address] , [facility] 5 20:40:22 Joint pain in ankle and foot Completed 200406/29/2013 Not Available [facility] 3 02:01:26 Acute sinusiti s 05997914 Completed 06/29/2013 Not Available [facility] [place] 3 02:02:20 Finding by method 256494524 Completed 200206/29/2013 Not Available [facility] [place] 3 02:01:56 Breast lump 10775049 Completed 200211/15/2014 Yeny Elizabeth NP [address] [place] [address], [address] , [facility] 5 20:40:22 Common cold 46462309 Completed 06/29/2013 Not Available [facility] [place] 3 02:00:28 Mammogra phy abnormal 562702923 Completed 200611/15/2014 Yeny Elizabeth NP [address] [place] [address], [address] , [facility] 5 20:45:31 Idiopath ic peripher al neuropat hy 34262853 Completed 200711/15/2014 Yeny Elizabeth NP [address] [place] [address], [address] , [facility] 5 20:42:37 On examinat ion - a rash Completed 06/29/2013 Not Available [facility] 3 02:00:49 Benign neoplasm of large intestin e 95677426 Active Not Available [facility] [place] 4 00:24:30 Dysphagi a 93053492 Completed 11/15/2014 Yeny Elizabeth NP [address] [place], [address] , [facility] 5 20:40:22 Abnormal cervical Papanico laou smear 295776536 Completed 200711/15/2014 Yeny Elizabeth NP [address] [place] [address], [address] , [facility] 5 20:55:49 Non-orga evelyn sleep disorder 613254223 Completed 200511/15/2014 Yeny Elizabeth NP [address] [place] [address], [address] , [facility] 5 20:40:22 Open wound of scalp 419613182 Completed 06/29/2013 Not Available [facility] [place] 3 02:04:18 Low back pain 009250819 Completed 01/01/2023 CATHERINE Garza [address] [place] [address], [address] , [facility] 3 14:47:05 Hypothyr oidism 19736448 Completed 200211/15/2014 Yeny Elizabeth NP [address] [place] [address], [address] , [facility] 5 20:42:37 Mononeur itis 83078617 Completed 200701/01/2023 CATHERINE Garza [address] [place] [address], [address] , [facility] 3 14:47:13 Abnormal findings on diagnost ic imaging of skull and head 517243527 Active Not Available [facility] 4 00:24:29 Pain in limb 84262675 Completed 200406/29/2013 Not Available [facility] 3 02:00:56 Heartbur n 92357290 Completed 06/29/2013 Not Available [facility] 3 02:03:55 Difficul ty speaking Completed 11/15/2014 Yeny Elizabeth NP [address] [place] [address], [address] , [facility] 5 20:40:22 Notes:Some problems listed i n Documents: #[id number], #[id number], #[id number], #[id number], #[id number], #[id number] could not be added to this patient's chart. Please review these documents and add these problems to the patient's chart manually as needed. Problem Notes None recorded. Procedures Surgical History Date Name Laterality Status Provider Name and Address Organization Details Recorded Time Smoking cessation counseling completed Rosa Tran LPN [facility] 06/21/2024 11:57:13 024 Smoking cessation counseling completed Rosa Tran [facility] 05/03/2024 09:03:04 023 Smoking cessation counseling cancelled Rayna [facility] 06/29/2023 09:58:39 023 Smoking cessation counseling cancelled Rosa Tran [facility] 03/31/2023 14:40:47 023 Smoking cessation counseling completed CATHERINE Garza [address] [place] [address], [address], [facility] 01/01/2023 14:12:24 023 Medicare Wellness Visit completed Gisselle [facility] 01/01/2023 13:36:59 Smoking cessation counseling completed [facility] 05/16/2022 14:20:29 022 Smoking cessation counseling completed Everardo Vazquez MD [address] [place] [address], [address], [facility] 04/03/2022 10:41:44 Medicare Wellness Visit completed Xiomy Gooden [facility] 12/23/2021 13:50:31 022 Alcohol use screening completed Xiomy Gooden [facility] 12/23/2021 13:50:31 022 Cardiovascular disease risk reduction counseling completed Xiomy Gooden [facility] 12/23/2021 13:50:31 Smoking cessation counseling completed Loreta Gloria RN [facility] 07/18/2021 11:27:55 021 Smoking cessation counseling completed Hailey Fleming [facility] 06/05/2021 10:57:46 10/04/2 021 partial lobectomy of thyroid completed Yeny Elizabeth NP [address] [place], [address], [facility] 06/02/2021 12:35:36 021 Biopsy of thyroid completed Dixie Underwood LPN [facility] 01/03/2021 14:35:31 021 Medicare Wellness Visit completed Terrell Thompson [facility] 12/06/2020 08:49:12 021 COPD Screening completed Terrell Thompson [facility] 12/06/2020 11:33:22 021 prevention-cardio vascular risk reduction counseling completed Terrell Thompson [facility] 12/06/2020 08:49:12 021 prevention-annual alcohol misuse screening completed Terrell Thompson [facility] 12/06/2020 08:49:12 021 biopsy of thyroid completed Dixie Underwood LPN [facility] 12/20/2020 15:57:05 021 Medicare Wellness Visit completed Terrell Thompson [facility] 08/21/2020 08:16:38 021 prevention-cardio vascular risk reduction counseling completed Terrell Thompson [facility] 08/21/2020 08:16:38 021 prevention-annual alcohol misuse screening completed Terrell Thompson [facility] 08/21/2020 08:16:38 019 Nebulizer Tx completed Daneynedaalis Archer [facility] 09/14/2018 18:02:56 014 Other (specify) completed Yeny Elizabeth NP [address] [place], [address], [facility] 11/15/2014 20:37:49 012 Suture/staple Removal completed Yeny Elizabeth NP [address] [place], [address], [facility] 09/19/2011 17:19:53 011 Carpal Tunnel Surgery completed Yeny Elizabeth NP [address] [place], [address], [facility] 09/12/2011 12:33:44 004 completed Not Available [facility] 1 06:05:52 Back Surgery completed Yeny alexandre NP [address] [place], [address], [facility] 04/10/2015 11:56:53 repair of tendon completed Dixie Underwood LPN [facility] 12/20/2020 15:57:18 Imaging Results None recorded. Procedure Notes None recorded. Medical Equipment None Reported. Allergies Allergen ID Allergen Name Allergen Category Reaction Reaction Severity Criticality Documentation Date Start Date Code Code System Note Provider Name and Address Organization Details Recorded Time 714352 metoprolo l Not available Not available Not available Not available 01/24/2013 6918 RxNorm marito cardi a. Yeny Elizabeth NP [address] [place], [place] [address], [address], [facility] 3 11:47:43 748364 spironola ctone medicatio n dizziness Not available Not available 01/25/2016 9997 RxNorm Yeny Elizabeth NP [address] [place], [place] [address], [address], [facility] 6 16:15:07 30231 penicilli n G Not available itching Not available Not available 07/30/2009 7980 RxNorm insid e of skin Not Available [facility] 1 06:05:20 329591 bupropion Not available other Not available Not available 01/26/2017 77380 RxNorm nonst op Yeny kennedy NP [address] [place], [place] [address], [address], [facility] 7 16:46:02 43031 hydrochlo rothiazid e medicatio n other severe Not available 10/25/2011 5487 RxNorm ortho stasi s and synco pe Yeny Elizabeth NP [address] [place], [place] [address], [address], [facility] 2 18:26:45 34674 amlodipin e medicatio n other severe Not available 10/25/2011 79818 RxNorm ortho stasi s and synco pe Yeny Elizabeth NP [address] [facility] [place], [address], [facility] 2 18:26:45 27952 lisinopri l medicatio n cough Not available Not available 10/28/2011 01836 RxNorm Yeny Elizabeth NP [address] [facility] [place], [address], [facility] 2 11:17:27 86674 Diovan medicatio n other mild Not available 11/10/2011 47706 2 RxNorm diarr hea and insom caridad Yeny Elizabeth NP [address] [facility] [place], [address], [facility] 2 11:50:20 Medications Name Sig Start [...] active Not Available Not Available Not Avai labludmila Nicomumtazm CQ 1 pathc transder mal daily 2022 [...] Available Not Available No t Available Afluria 2847-7982 (PF) 45 mcg (15 mcg x 3)/0.5 mL intramusc ular syringe inject 0.5 millilit er intramus cularly active Not Available Not Available No t Available fluticaso ne 113 mcg-salme terol 14 mcg/actua tion breath activated powdr INHALE 1 PUFF BY MOUTH EVERY 12 HOURS active Not Available Not Available No t Available Afluria 4693-8050 (PF) 45 mcg(15 mcg x 3)/0.5 mL [...] Available Not Available Vitals Date Recorded Systolic And Diastolic Provider Name and Address Organization Details Last Updated DateTime 01/01/2023 144/82 mm[Hg] Art Garza [address] [place] [address], [address], [facility] 01/01/2023 14:44:45 Date Recorded Body height Body mass index (BMI) Body weight Heart rate Systolic And Diastolic Provider Name and Address Organization Details Last Updated DateTime 01/01/2023 161.29 cm 20 kg/m2 82817.33 g 56 /min 142/82 mm[Hg] Gisselle [facility] 01/01/2023 13:45:40 Date Recorded Systolic And Diastolic Provider Name and Address Organization Details Last Updated DateTime 01/28/2023 121/81 mm[Hg] Art Garza [address] [place] [address], [address], [facility] 02/06/2023 16:28:51 Date Recorded Body height Body mass index (BMI) Body weight Heart rate Systolic And Diastolic Provider Name and Address Organization Details Last Updated DateTime 02/05/2024 161.29 cm 20.3 kg/m2 47176.11 g 52 /min 128/78 mm[Hg] Minerva Soto CMA [facility] 02/05/2024 13:56:26 Date Recorded Heart rate Systolic And Diastolic Provider Name and Address Organization Details Last Updated DateTime 05/01/2023 52 /min 131/86 mm[Hg] Jaida Rosenord [facility] 05/01/2023 14:27:03 Date Recorded Body height Body mass index (BMI) Body weight Heart rate Systolic And Diastolic Provider Name and Address Organization Details Last Updated DateTime 05/05/2024 160.02 cm 19.2 kg/m2 10361.41 g 49 /min 121/65 mm[Hg] Rosa Tran LPN [facility] 05/05/2024 08:51:37 Date Recorded Body height Heart rate Systolic And Diastolic Provider Name and Address Organization Details Last Updated DateTime 05/18/2023 161.29 cm 50 /min 164/76 mm[Hg] Jaimee Lowe RN BSN [facility] 05/18/2023 11:57:49 Date Recorded Systolic And Diastolic Systolic And Diastolic Provider Name and Address Organization Details Last Updated DateTime 05/21/2023 148/84 mm[Hg] 160/97 mm[Hg] Rayna [facility] 05/22/2023 15:52:51 Date Recorded Systolic And Diastolic Systolic And Diastolic Provider Name and Address Organization Details Last Updated DateTime 05/22/2023 152/90 mm[Hg] 171/87 mm[Hg] Rayna [facility] 05/22/2023 15:53:30 Date Recorded Body height Body mass index (BMI) Body weight Heart rate Systolic And Diastolic Provider Name and Address Organization Details Last Updated DateTime 06/23/2024 160.02 cm 19.6 kg/m2 18737.03 g 56 /min 136/74 mm[Hg] Rosa Tran LPN [facility] 06/23/2024 13:55:04 Date Recorded Body height Provider Name an d Address Organization Details Last Updated DateTime 06/29/2023 161.29 cm Rayna [facility] 06/29/2023 09:58:50 Date Recorded Systolic And Diastolic Provider Name and Address Organization Details Last Updated DateTime 07/27/2023 117/78 mm[Hg] Radha Saini [facility] 07/27/2023 14:36:24 Social History Question Answer Notes LastModified by Organizat ion Details LastModified Time Tobacco Smoking Status Current Some Day Smoker PT currently smoking occasionally ALISSA Mulligan [facility] 04/03/2022 09:45:37 Do You Wear A Helmet [...] Did You Quit Smoking? 6-10yearssi ncelastciga rette [email or web address] Information not available 06/05/2021 How Many Days [...] Evelin(sister ) [email or web address] Information not available 06/23/2018 Marital Status Single Information not available 06/26/2011 [...] Many Years Have You Smoked Tobacco? 41 [email or web address] Information not available 06/05/2021 Sex: Unknown Functional Status Question Answer Note LastModified by Organizat ion Details LastModified Time Do you use any illicit or recreational drugs? No Information not available 05/05/2024 Do you or have you ever used any other forms of tobacco or nicotine? Yes Information not available 04/03/2022 What is your level of alcohol consumption? 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 Family History Relationship [...] Medical History Condition Response Skin Cancer Y NEUROLOGIC Y GASTROINTESTINAL Colon Polyps Y Hyperlipidemia Y Hypertension Y Gynecological HistoryNo gynecological history recorded. Obstetrics History GPAL:G 0 P 0 0 0 0 Immunizations Vaccine Type Date Status Note Provider Nam e and Address Organization Details Recorded Time influenza, seasonal, intradermal, preservative free 1 completed Not Available [facility] 08/27/2019 02:34:20 Td(adult) unspecified formulation 6 completed Not Available [facility] 09/26/2023 00:24:31 influenza, unspecified formulation 7 completed Not Available [facility] 09/26/2023 00:24:31 Influenza, split virus, trivalent, preservative 2 completed Not Available [facility] 08/27/2019 02:32:24 Tdap 3 completed Not Available [facility] 08/27/2019 02:28:48 Novel [id number] 9 completed Not Available [facility] 08/27/2019 02:27:45 Influenza, split virus, trivalent, PF 3 completed Not Available [facility] 08/27/2019 02:18:58 Influenza, split virus, quadrivalent, PF 5 completed Not Available [facility] 08/27/2019 02:19:46 zoster live 5 completed Not Available [facility] 08/27/2019 02:19:45 influenza, unspecified formulation 6 completed Not Available [facility] 09/26/2023 00:24:31 influenza, unspecified formulation 7 completed Not Available [facility] 09/26/2023 00:24:31 Influenza, high-dose, quadrivalent, PF 0 completed Janee Bai LPN null, [facility] 05/28/2020 08:46:57 pneumococcal polysaccharide PPV23 0 completed BLANCA DOYLE NP [address] [place] [address], [address], [facility] 06/20/2020 15:02:02 Influenza, split virus, trivalent, preservative 0 completed Not Available [facility] 08/27/2019 02:17:47 COVID-19, mRNA, LNP-S, PF, 30 mcg/0.3 mL dose 1 completed Not Available [facility] 09/26/2023 00:24:30 COVID-19, mRNA, LNP-S, PF, 30 mcg/0.3 mL dose 1 completed Not Available [facility] 09/26/2023 00:24:30 Td (adult), 2 Lf tetanus toxoid, preservative free, adsorbed 3 completed CATHERINE Garza [address] [place] [address], [address], [facility] 01/02/2023 07:56:47 Influenza, high-dose, quadrivalent, PF 1 completed Not Available [facility] 09/26/2023 00:24:30 COVID-19, mRNA, LNP-S, PF, 30 mcg/0.3 mL dose 1 completed Not Available [facility] 09/26/2023 00:24:31 COVID-19, mRNA, LNP-S, PF, 30 mcg/0.3 mL dose 2 completed Not Available [facility] 09/26/2023 00:24:31 zoster recombinant 2 completed Not Available [facility] 09/26/2023 00:24:30 Influenza, split virus, quadrivalent, preservative 2 completed Not Available [facility] 09/26/2023 00:24:30 Past Encounters Encounter ID Performer Location Encounter Start Date Encounter Closed Date Diagnosis/Indication Diagnosis SNOMED-CT Code Diagnosis ICD10 Code Diagnosis Note [id number] Tavon Machado. , [facility], OFFICE [address] [place] [address] 10/06/2002 15:52:18 08/30/2008 02:02:29 [id number] [facility] , [address] [address] 10/06/2002 00:00:00 08/30/2008 02:02:29 [id number] [facility] , [address] [address] 10/06/2002 16:36:55 08/30/2008 02:02:29 [id number] [facility] - [address] [address] 10/07/2002 15:46:52 08/30/2008 02:02:29 [id number] [facility] - [facility] [address] [place] [address] 11/08/2002 16:26:26 08/30/2008 02:02:29 [id number] Tavon Machado [facility], OFFICE [address] [place] [address] 11/08/2002 15:17:41 08/30/2008 02:02:29 [id number] Tavon Machado [facility], OFFICE [address] [place] [address] 12/08/2002 15:25:39 08/30/2008 02:02:29 [id number] [facility] - [facility] [address] [place] [address] 12/08/2002 15:51:11 08/30/2008 02:02:29 [id number] [facility] , [address] [address] 12/20/2002 14:48:00 08/30/2008 02:02:29 [id number] [facility] , [address] [address] 12/20/2002 00:00:00 08/30/2008 02:02:29 [id number] Tavon Machado [facility], OFFICE [address] [place] [address] 03/06/2003 10:13:04 08/30/2008 02:02:29 [id number] Tavon Machado [facility], OFFICE [address] [place] [address] 11/22/2003 12:59:27 11/22/2003 14:55:43 [id number] [facility] , [facility] [address] [place] [address] 12/26/2003 15:20:58 08/30/2008 02:02:29 [id number] [facility] , [facility] [address] [place] [address] 12/26/2003 00:00:00 08/30/2008 02:02:29 [id number] Tavon Machado [facility], OFFICE [address] [place] [address] 01/19/2004 14:11:55 01/19/2004 15:54:03 [id number] [facility], TERRELL FISH MD ASP, [facility] [address] [place] [address] 03/27/2004 10:47:20 03/28/2004 09:21:52 [id number] [facility] - [facility] [address] [place] [address] 10/15/2004 14:29:29 10/15/2004 14:29:57 [id number] Tavon Machado. VICK, [facility], OFFICE [address] [place] [address] 12/11/2004 15:06:41 12/11/2004 17:50:16 [id number] [facility] RADIOLOGY [facility] , [address] [address] 12/11/2004 16:00:54 12/12/2004 08:22:27 [id number] [facility] RADIOLOG[facility] [facility] , [address] [address] 12/11/2004 00:00:00 08/30/2008 02:02:29 [id number] [facility] , [address] [address] 01/02/2005 14:50:32 08/30/2008 02:02:29 [id number] [facility] , [address] [address] 01/02/2005 00:00:00 08/30/2008 02:02:29 [id number] Tavon Machado. , [facility], OFFICE [address] [place] [address] 05/13/2005 14:40:24 08/30/2008 02:02:29 [id number] [facility] RADIOLOGY [facility] [facility] , [address] [address] 05/13/2005 15:36:22 08/30/2008 02:02:29 [id number] [facility] RADIOLOG[facility] Rad[facility] , [address] [address] 05/13/2005 00:00:00 08/30/2008 02:02:29 [id number] Angelo Mcwilliams , PT Physical Therapy, [address] [address] 05/26/2005 12:56:12 08/30/2008 02:02:29 [id number] Angelo Mcwilliams , PT Physical Therapy, [address] [address] 06/11/2005 15:17:06 08/30/2008 02:02:29 [id number] Tavon Machado , [facility], OFFICE [address] [place] [address] 12/24/2005 15:41:01 12/25/2005 08:44:40 [id number] Tavon Machado [facility], OFFICE [address] [place] [address] 12/24/2005 15:41:01 12/25/2005 08:44:40 [id number] [facility] , [address] [address] 01/15/2006 14:31:58 01/16/2006 09:26:07 [id number] [facility] , [address] [address] 01/15/2006 00:00:00 08/30/2008 02:02:29 [id number] Tavon Machado [facility], OFFICE [address] [place] [address] 04/22/2006 15:44:51 04/23/2006 08:28:48 [id number] [facility] - [address] [address] 04/22/2006 16:15:54 04/22/2006 16:16:11 [id number] Tvaon Machado [facility], OFFICE [address] [place] [address] 04/30/2006 15:02:17 05/01/2006 08:35:41 [id number] [facility] , [address] [address] 05/31/2007 14:16:16 06/01/2007 09:45:04 [id number] [facility] , [address] [address] 05/31/2007 00:00:00 08/30/2008 02:02:29 [id number] Tavon Machado , [facility], OFFICE [address] [place] [address] 06/01/2007 15:54:13 08/30/2008 02:02:29 [id number] TREATMENT NURSE [facility], [facility], OFFICE [address] [place] [address] 07/06/2007 15:59:53 08/30/2008 02:02:29 [id number] [facility] Radiology , [facility] [address] [place] [address] 07/06/2007 15:26:24 07/07/2007 09:44:25 [id number] [facility] , [address] [address] 07/06/2007 00:00:00 08/30/2008 02:02:29 [id number] [facility] (CAD[facility] [employer] Radiology , [address] [address] 07/06/2007 17:40:10 07/07/2007 09:44:33 [id number] [facility] [employer] Radiology , [address] [address] 07/06/2007 00:00:00 08/30/2008 02:02:29 [id number] Tavon Machado , [facility], OFFICE [address] [place] [address] 12/20/2007 09:22:27 08/30/2008 02:02:29 [id number] [facility] - [address] [address] 12/20/2007 09:59:25 12/20/2007 09:59:40 [id number] [facility] Radiology , [address] [address] 06/24/2008 11:14:13 06/26/2008 09:15:42 [id number] [facility] - [address] [address] 07/24/2008 12:24:22 07/24/2008 12:24:31 [id number] Tavon Machado, [facility], OFFICE [address] [place] [address] 07/24/2008 11:11:08 08/30/2008 02:02:29 [id number] [facility] Radiology , [facility] [address] [place] [address] 07/30/2009 12:03:57 07/31/2009 14:41:39 [id number] ANITRA Paz, [facility], OFFICE [address] [place] [address] 07/30/2009 12:53:39 08/01/2009 09:41:41 [id number] ANITRA Paz, [facility], OFFICE [address] [place] [address] 09/03/2009 10:36:11 09/05/2009 09:01:25 [id number] ANITRA Montalvo, [facility], OFFICE [address] [place] [address] 6 02/18/2010 16:06:54 02/21/2010 11:14:25 [id number] ANITRA Montalvo, [facility], OFFICE [address] [place] [address] 6 03/04/2010 10:51:19 03/05/2010 09:13:07 [id number] ANITRA Montalvo, [facility], OFFICE [address] [place] [address] 6 04/08/2010 10:49:52 04/10/2010 12:33:40 [id number] ANITRA Montalvo, [facility], OFFICE [address] [place] [address] 05/06/2010 11:06:59 05/09/2010 08:14:35 [id number] ANITRA Montalvo, [facility], OFFICE [address] [place] [address] 09/04/2010 10:12:54 09/09/2010 09:54:47 [id number] [facility] Radiology , [facility] [address] [place] [address] 09/04/2010 11:35:48 09/05/2010 13:47:30 [id number] ANITRA Guidry, [facility], OFFICE [address] [place] [address] 02/17/2011 15:12:45 02/17/2011 16:18:23 [id number] ANITRA Guidry, [facility], OFFICE [address] [place] [address] 03/03/2011 11:25:18 03/03/2011 12:35:48 [id number] Yeny Elizabeth NP FP, [facility], OFFICE [address] [place] [address] 05/05/2011 11:10:16 05/05/2011 12:18:53 [id number] Yeny Elizabeth NP FP, C, OFFICE [address] [place] [address] 06/16/2011 11:24:27 06/16/2011 12:27:11 [id number] Yeny Elizabeth NP FP, [facility], OFFICE [address] [place] [address] 6 09/12/2011 11:49:49 09/12/2011 12:53:46 [id number] Yeny Elizabeth NP FP, C, OFFICE [address] [facility] [place] [address] 09/15/2011 10:11:06 09/15/2011 11:20:27 [id number] [facility] MAMMO TECH Radiology , [facility] [address] [facility] [place] [address] 09/15/2011 11:18:59 09/22/2011 11:25:46 [id number] [facility] DRAFTER (CAD) ELECTRICAL Radiology , [facility] [address] [facility] [place] [address] 09/15/2011 11:22:42 09/22/2011 11:26:39 [id number] [facility] DRAFTER (CAD) ELECTRICAL Radiology , [facility] [address] [facility] [place] [address] 09/15/2011 13:02:14 09/22/2011 11:27:06 [id number] Yeny Elizabeth NP FP, [facility], OFFICE [address] [place] [address] 6 09/19/2011 16:05:15 09/19/2011 17:14:17 [id number] Yeny Elizabeth NP FP, C, OFFICE [address] [place] [address] 10/16/2011 11:04:47 10/16/2011 12:36:29 [id number] Yeny Elizabeth NP FP, [facility], OFFICE [address] [facility] [place] [address] 6 10/23/2011 10:47:33 10/23/2011 11:31:44 [id number] Yeny Elizabeth NP , [facility], OFFICE [address] [facility] [address] 10/28/2011 10:53:53 10/28/2011 11:41:32 [id number] Toby Huffman MD , [facility], OFFICE [address] [facility] [address] 11/10/2011 11:00:59 11/10/2011 12:05:22 [id number] Boo Christine MD , [facility], OFFICE [address] [facility] [address] 12/22/2011 11:30:06 12/22/2011 12:11:38 [id number] Balbir Cruz MD Radiology , [facility] [address] [facility] [address] 05/03/2012 11:01:39 05/04/2012 10:48:40 [id number] Boo Christine MD , [facility], OFFICE [address] [facility] [address] 6 05/11/2012 11:43:11 05/11/2012 12:45:41 [id number] [facility] FLU CLINIC , [facility], OFFICE [address] [facility] [address] 6 05/13/2012 06:44:42 05/13/2012 16:24:11 [id number] Yeny Elizabeth NP , [facility], OFFICE [address] [facility] [address] 10/11/2012 14:33:17 10/11/2012 17:18:16 [id number] Antonio Urbano MD Radiology , [facility] [address] [facility] [place] [address] 6 10/18/2012 11:02:02 10/19/2012 10:11:53 [id number] Yeny Elizabeth NP FP, [facility], OFFICE [address] [facility] [address] 6 11/29/2012 11:09:20 11/29/2012 12:09:21 [id number] Yeny Elizabeth NP FP, [facility], OFFICE [address] [place] [address] 6 12/27/2012 11:13:39 12/27/2012 12:12:31 [id number] Yeny Elizabeth NP FP, [facility], OFFICE [address] [place] [address] 6 01/24/2013 10:58:06 01/24/2013 11:59:15 [id number] Yeny Elizabeth NP , [facility], OFFICE [address] [place] [address] 6 05/02/2013 10:58:25 05/02/2013 12:23:22 Acute bronchitis 98799751 Pain of joint 65049249 Influenza vaccine needed 3792822648 [id number] Boo Christine MD , [facility], OFFICE [address] [place] [address] 6 12/26/2013 15:36:32 12/26/2013 16:51:55 Adult health examination 348561788 see Risk Assessment and Lifestyle Change Counseling section above Allergic rhinitis 21767401 Backache 409945104 Sinusitis 09988489 Screening for malignant neoplasm of cervix 634077787 Thyroid nodule 799470680 [id number] Boo Christine MD , [facility], OFFICE [address] [place] [address] 6 01/22/2015 13:40:10 01/22/2015 14:50:12 Adult health examination 394687010 see Risk Assessment and Lifestyle Change Counseling section above Benign ess ential hypertension 7787152 Blood pressure at goal Backache 314772727 Major depr ession, melancholic type 539941925 Gastroesop hageal reflux disease 406981730 Sleep apnea 70435891 [id number] Boo Christine MD , [facility], OFFICE [address] [place] [address] 6 04/10/2015 11:01:34 04/10/2015 12:19:45 Lifestyle 719894717 Benign ess ential hypertension 3786015 Blood pressure at goal Backache 415496132 Varicella vaccination 83323451 Influenza vaccine needed 0932453934 061 [id number] Boo Christine MD FP, [facility], OFFICE [address] [place] [address] 6 04/27/2015 11:53:26 04/27/2015 12:51:23 Backache 664753192 Benign ess ential hypertension 0267357 Blood pressure at goal Will be getting another 24hr monitor by nephrologi st due to labile BP, difficult to control [id number] Yeny Elizabeth NP FP, [facility], OFFICE [address] [place] [address] 6 06/04/2015 11:08:23 06/04/2015 14:55:19 Tuberculosis screening 401717261 Z11.1 [id number] Yeny Elizabeth NP FP, [facility], OFFICE [address] [place] [address] 6 06/18/2015 11:15:27 06/18/2015 13:05:30 Tuberculosis screening 146583383 Z11.1 [id number] Yeny Elizabeth NP FP, [facility], OFFICE [address] [place] [address] 6 07/26/2015 11:30:59 07/26/2015 12:23:47 Benign essential hypertension 5667919 I10 Blood pressure NOT at goal. [id number] MD VICK Cardenas, [facility], OFFICE [address] [place] [address] 6 01/25/2016 15:49:01 01/29/2016 10:59:33 Adult health examination 344512377 Z00.00 see Risk Assessment and Lifestyle Change Counseling section above Benign ess ential hypertension 1262725 I10 Blood pressure NOT at goal. Mixed hyperlipidemia 267 321046 E78.2 [id number] MD VICK Cardenas, C, OFFICE [address] [place] [address] 6 02/29/2016 09:37:18 02/29/2016 10:27:55 Hand pain 51360103 M79.642 Benign ess ential hypertension 9176594 I10 Blood pressure NOT at goal. [id number] MD VICK Cardenas, [facility], OFFICE [address] [place] [address] 6 07/28/2016 14:23:55 07/28/2016 15:14:02 Benign essential hypertension 3707641 I10 Blood pressure NOT at goal despite 3 agents. Can't tolerate spironolac tone. Mixed hyperlipidemia 267 581533 E78.2 Acute uppe r respiratory infection 06214875 J06.9 [id number] Boo Christine MD , [facility], OFFICE [address] [place] [address] 6 01/26/2017 15:38:43 01/26/2017 17:01:04 Adult health examination 714997477 Z00.00 see Risk Assessment and Lifestyle Change Counseling section above Benign ess ential hypertension 8060583 I10 Blood pressure at goal. Backache 064071003 M54.9 [id number] Boo Christine MD , [facility], OFFICE [address] [place] [address] 6 05/19/2017 15:23:45 05/19/2017 16:05:28 Cough 93101700 R05 Benign ess ential hypertension 8106066 I10 Blood pressure not at goal. [id number] Boo Christine MD , [facility], OFFICE [address] [place] [address] 6 06/26/2017 07:49:26 06/26/2017 08:38:01 Benign essential hypertension 4198194 I10 Blood pressure at goal [id number] Boo Christine MD , [facility], OFFICE [address] [place] [address] 6 02/16/2018 15:32:13 02/16/2018 16:54:41 Adult health examination 130188134 Z00.00 see Risk Assessment and Lifestyle Change Counseling section above Depression screening 171 796444 Z13.89 depression screening tool administer ed, entered into emr, scored and discussed, time greater than 7.5 minutes Benign ess ential hypertension 7443797 I10 Blood pressure at goal Cough 08363231 R05 Using ProAir occasional ly Screening for malignant neoplasm of colon 902903211 Z12.11 Referral for a DIRECT booked colonoscop y. This patient is a healthy ASA Class 1 or 2 patient (only mild systemic disease), or a STABLE, well controlled insulin dependent diabetic. They do not have serious cardiac disease ie ID/angiopl asty within 1 year, symptomati c CHF; renal failure with CKD 4 or 5; take Coumadin, Plavix, Aggrenox, etc. Sleep apnea 77744338 G47 .30 Please get back to me with name of Cpap provider, will update orders so you can use it again. Impaired f asting glycemia 034259834 R73.01 Blood sugar today 84, continue to monitor [id number] Boo Christine MD , [facility], OFFICE [address] [place] [address] 6 09/14/2018 17:17:47 09/16/2018 11:01:46 Mixed hyperlipidemia 173859135 E78.2 Benign ess ential hypertension 1132638 I10 Blood pressure at goal Cough 51381027 R05 Using ProAir occasional ly Backache 387213998 M54.9 Wheezing 48549770 R06.2 Normal grief reaction 27 2209933 F43.20 [id number] Boo Christine MD , [facility], OFFICE [address] [place] [address] 6 10/05/2018 15:20:09 10/05/2018 16:27:59 Benign essential hypertension 8441923 I10 Thyroid nodule 266630227 E04.1 Cough 92459625 R05 [id number] Boo Christine MD , [facility], OFFICE [address] [place] [address] 6 11/02/2018 16:39:52 11/03/2018 09:00:16 Benign essential hypertension 0469363 I10 [id number] Walter López MD , [facility], OFFICE [address] [place] [address] 6 11/25/2019 13:48:50 11/28/2019 14:47:15 Urinary tract infectious disease 25075243 N39.0 Patient instructed to push fluids, to follow up for persistent or worsening symptoms or fever or back pain.Treat for presumptiv e infection w/ bactrim.Co nsider musculoske latal vs stone. If no improvemen t will need imaging and cultures. [id number] Walter López MD , [facility], OFFICE [address] [place] [address] 6 11/30/2019 15:08:40 12/02/2019 13:07:04 Low back pain 698172657 M54.5 Nausea 481582130 R11.0 Night sweats 60300521 R6 1 [id number] Boo Christine MD , [facility], OFFICE [address] [place] [address] 6 05/25/2020 16:15:13 05/28/2020 13:23:56 Active or passive immunization 139253909 Z23 [id number] BLANCA DOYLE NP , [facility], OFFICE [address] [place] [address] 6 06/20/2020 09:51:52 06/22/2020 12:18:11 Abdominal pain 20150811 R10.9 New concern, unclear if all symptoms related to same cause, ? cystitis and/or kidney stones given lower abdominal pain with radiation to groin with back pain, POCT urine with trace leuks only, plan to send for culture. Mass palpated in periumbili laney area ? hernia, plan to obtain CT of abdomen and pelvis to further assess all concerns. Screening mammography 24 718381 Z12.31 Routine screening due, patient agreeable, would like to schedule with [facility], aware of wait time. Active or passive immunization 312181043 Z23 Depression screening 171 006259 Z13.31 - depression screening tool administer ed, entered into emr, scored and discussed, time greater than 7.5 minutes-Co ntinue sertraline [id number] Boo Christine MD , [facility], OFFICE [address] [place] [address] 6 07/03/2020 15:32:37 07/04/2020 18:49:34 Essential hypertension 68785455 I10 Major depr ession, melancholic type 591399992 F32.9 Multiple n odules of lung 331210794 R91.8 Liver mass 909571768 R16 .0 [id number] Boo Christine MD , [facility], OFFICE [address] [place] [address] 6 08/21/2020 11:04:42 08/21/2020 14:03:59 Essential hypertension 18341731 I10 Vitamin D deficiency 347 36785 E55.9 Thyroid nodule 897710619 E04.1 Multiple n odules of lung 971935065 R91.8 diffuse, bilateral Tremor 54079304 R25.1 L hand 4th & 5th fingers. [id number] Boo Christine MD , [facility], OFFICE [address] [place] [address] 10/23/2020 09:00:28 10/24/2020 16:08:20 Essential hypertension 51503867 I10 Mixed hyperlipidemia 267 277744 E78.2 Major depr ession, melancholic type 676532505 F32.9 sertraline 200mg daily. Multiple n odules of lung 380916910 R91.8 diffuse, bilateral Vitamin D deficiency 347 64448 E55.9 [id number] Boo Christine MD , [facility], [address] [place] [address] 12/06/2020 11:27:07 12/07/2020 09:46:33 Essential hypertension 94796254 I10 Mixed hyperlipidemia 267 082603 E78.2 Chronic ob structive pulmonary disease 18293388 J44.9 Adult heal th examination 747492681 Z00.00 see Risk Assessment and Lifestyle Change Counseling section above Counseling 002283035 Z71 .9 including cardiovasc ular risk reduction counseling Depression screening 171 625566 Z13.31 depression screening tool administer ed, entered into emr, scored and discussed, time greater than 7.5 minutes. Screening reviewed with pt. treated for depression with sertraline . Screening for alcohol abuse 653723643 Z13.39 [id number] Everardo Vazquez MD Endocrino logy, [facility] [address] [place] [address] 12/20/2020 15:28:49 12/21/2020 06:31:01 Thyroid nodule 346966245 E04.1 Right nodule. Cytology from [facility] reports benign . This typically [...] genetic analysis. Multiple n odules of lung 662568305 R91.8 Adds to complexity . Concern about whether we can definitive ly link lung nodules to a known primary. Chronic ob structive pulmonary disease 81986617 J44.9 Clinically . Recent PFTs (08/30) c/w emphysema or interstiti al lung disease. Vitamin D deficiency 347 92237 E55.9 Level of 13 (07/29). Given 50K weekly x 1 month. No f/u orders placed. [id number] Everardo Vazquez MD Endocrino logy, [address] [address] 12/27/2020 12:55:55 12/28/2020 06:32:34 [id number] Everardo Vazquez MD Endocrino logy, [address] [address] 01/03/2021 14:30:30 01/08/2021 13:15:42 Thyroid nodule 414207254 E04.1 Right nodule. Cytology: Maben IV: Suspicious for Follicular Neoplasm. Genomic sequencing wader boot top assembler pending. Also expression atlas pending. Reviewed ramificati [...] these options are consistent with cytology from [facility] which reported results as benign . While thyroid CA can metastasiz e to lung, one would typically expect to see adenopathy . She has not had significan t apparent adenopathy on exam. Have discussed case with Pulmonary. Genetic sequencing and expression atlas pending. Multiple n odules of lung 033295255 R91.8 Adds to complexity . Concern about whether we can definitive ly link lung nodules to a known primary. Chronic ob structive pulmonary disease 28186609 J44.9 Clinically . Recent PFTs (08/30) c/w emphysema or interstiti al lung disease. Vitamin D deficiency 347 34586 E55.9 Level of 13 (07/29). Given 50K weekly x 1 month. No f/u orders placed. 12/28: suggest get vit D level checked. [id number] Boo Christine MD , [facility], OFFICE [address] [place] [address] 06/05/2021 10:44:10 06/05/2021 11:39:08 Essential hypertension 10380556 I10 Chronic ob structive pulmonary disease 23585986 J44.9 Cigarette smoker 7541651 7 F17.210 Tobacco user 311343911 Z 72.0 Screening for osteoporosis 974628525 Z13.820 Low back pain 114415648 M54.50 Multiple n odules of lung 135676261 R91.8 diffuse, bilateral Thyroid nodule 531973230 E04.1 Benign ess ential hypertension 4162082 I10 [id number] GLENROY MARTI MD , [facility], OFFICE [address] [place] [address] 07/08/2021 11:51:46 07/16/2021 09:19:52 Spasm 44088091 R25.2 describes muscle jerking like spasmrecen t thyroidect yeni, r/o parathyroi d injury - check Cacheck magnesiumi f all normal, she wants to talk to dr. Vazquez at upcoming appt and ask if he thinks this is related somehow to her thyroid. I advised her to let me know if he states it isn't. 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 Should have TSH/free T4 checked (per d/c summary) and see Dr. Vazquez as scheduled. She will have labs today. [id number] Everardo Vazquez MD Endocrino logy, [address] [address] 07/18/2021 11:18:55 07/26/2021 06:28:00 Multiple nodules of lung 830672028 R91.8 Adds to complexity . Concern about whether we can definitive ly link lung nodules to a known primary. Chronic ob structive pulmonary disease 23853946 J44.9 Clinically . Recent PFTs (08/30) c/w emphysema or interstiti al lung disease.Di scussed this in relation to smoking and reasons to quit. Vitamin D deficiency 347 63119 E55.9 D= 36.4 (06/30); was 33 (01/28); was 13 (07/29). Had 50K weekly x 1 month.Take s 1-2 daily supplement (07/30). Cigarette smoker 2324395 7 F17.210 Since no clear evidence of metastatic disease, discussed risks/harm s of smoking. Tobacco user 631033696 Z 72.0 Sweating 608107435 R61 Some diarrhea afterwards . Check catechols and also 5hiaa. 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 Not on repalcemen t. check TFTs. [id number] GLENROY MARTI MD , [facility], OFFICE [address] [place] [address] 6 10/31/2021 13:22:38 11/11/2021 09:15:16 Pre-surgery evaluation 555379492 Z01.818 Summary: has low rahel-opera tive risk [...] prophylaxi s as per surgical protocol Backache 167583991 M54.9 rare use of tramadol - refill sent [id number] GLENROY MARTI MD , [facility], OFFICE [address] [place] [address] 12/23/2021 13:29:28 12/23/2021 14:49:50 Adult health examination 957109791 Z00.00 See risk assessment portion of HPI Counseling 006900385 Z71 .9 including cardiovasc ular risk reduction counseling Cardiovasc ular risk reduction was discussed including benefits and risks of aspirin, exercise goals, healthy eating and healthy weight . Discussion greater than 7.5 minutes. Depression screening 171 867762 Z13.31 depression screening tool administer ed, entered into emr, scored and discussed, time greater than 7.5 minutes Screening for alcohol abuse 890439242 Z13.39 An audit alcohol screening test was performed and scored. Patient was asked about alcohol use, advised about risks of alcohol, and personal risk was assessed, patient agreed to plan and given informatio n about available resources if needed. Discussion including screening and scoring less than 7.5 minutes Mixed hyperlipidemia 267 954763 E78.2 Cholestero l is at goal. LDL 65Continue to work on diet and exercise as discussed Essential hypertension 52014575 I10 Controlled . Continue current regimen. Pain of ri ght hip joint 5031618007 17466 M25.551 xrays r/o DJDES Tylenolhad been told not to take NSAIDs due to hypertensi on. Used to prefer Aleve. If pain is not controlled with Tylenol, will try Aleve (or prescripti on naproxen 500 mg) as needed - let me know. Major depr ession, melancholic type 925423745 F33.1 continue sertraline , follow up with therapist. Has been sensitive to other meds so would prefer to stay on same dose. I need a schedule, I need someplace to go. No thoughts of harming herself. Screening mammography 24 695541 Z12.31 Chronic ob structive pulmonary disease 99465214 J44.9 breathing OK - smoking 1 pk/weekCT showed Upper lobe predominan t centrilobu lar emphysema in 01/25/21 at [facility].uses Breo every other day or every 3 days. Legs get stiff when she uses this daily.No glaucoma Mass of axilla 519312776 R22.2 felt last but none now. ?lymph nodeNothin g palpable todayUS ordered [id number] Everardo Vazquez MD Endocrino logy, [facility] [address] [place] [address] 04/03/2022 09:31:23 04/03/2022 13:42:46 Sweating 032303411 R61 Has c/o diarrhea and intermitte nt sweats. Had normal catechols. 5hiaa was slightly high (issues with urine pH collection ). Not high enough to be suspicious for carcinoid. If sx persist, may need to repeat. Multiple n odules of lung 809493843 R91.8 Adds to complexity . Concern about whether we can definitive ly link lung nodules to a known primary. Chronic ob structive pulmonary disease 24449962 J44.9 Clinically . Recent PFTs (08/30) c/w emphysema or interstiti al lung disease.Di scussed this in relation to smoking and reasons to quit. Vitamin D deficiency 347 86741 E55.9 D= 47.5 (03/31); was 36.4 (06/30); was 33 (01/28); was 13 (07/29). Was taking 1-2 daily supplement but lately more prn. Cigarette smoker 6246615 7 F17.210 Since no clear evidence of metastatic disease, discussed risks/harm s of smoking. 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 Not on replacemen t. Check TFTs. [id number] Walter López MD , [facility], OFFICE [address] [place] [address] 05/16/2022 14:08:49 05/16/2022 14:58:54 Tobacco user 586244165 Z72.0 not discussed today, will discuss at f/usmoking occasional ly per chart review Active or passive immunization 829633183 Z23 pt already had flu vaccinerem inded about shingles vaccine Pain in right hand 19174 87241 42880 M79.641 s/p fall 2 weeks agorepeat hand/wrist xrays given recurrent edema and painok to continue compressio n brace, rest, ice in the interim Pleuritic pain 3903198 R 07.81 new as of last nightreass uring examencour aged to continue monitoring and call with any changes/wo rsening Pain of ri ght hip joint 7870770863 43189 M25.551 May xray reviewed - moderate degenerati ve changesPT and ortho referrals sentcall as needed Bone density finding 385 067118 M85.80 results 03/2022 reviewed - low bone massFRAX score reviewed: 10 y risk major risk 11%, hip 3.3%discus sed tx options, for now will optimize vitamin D, calcium, and weight-godwin ring and muscle-str engthening repeat scan 2 years Urgent rosalino alan to urinate 02143144 R39.15 POC UA showing trace leuksnot enough urine for culture at appt, will have pt return for this Chronic ob structive pulmonary disease 79055257 J44.9 looking into new pulmonolog ist, has recs from Dr. Vazquez1x refill sent of Trelegy so she has it on hand in the interim Backache 191707549 M54.9 takes tramadol sparingly as needed for chronic back painlast fill 01/2022 per doug gastelum reassess at f/u [id number] Walter López MD , [facility], OFFICE [address] [facility] [place] [facility] [address] 01/01/2023 13:14:36 01/01/2023 14:31:56 Adult health examination [id number] Z00.00 Depression screening 171 383822 Z13.31 depression screening tool administer ed. as below. Screening for alcohol abuse 831967011 Z13.39 Alcohol use screening tool administer ed. rec max 7 drinks/wee k. Essential hypertension 60764617 I10 consistent ly above goalincrea se nifedipine to 90mg daily (currently taking 60mg daily)f/u 1 month to reassess Mixed hyperlipidemia 267 990599 E78.2 Cholestero l is at goalContin ue to work on diet and exercise as discussed Screening mammography 24 525185 Z12.31 due Active or passive immunization 851045029 Z23 reminded about shingles vaccinetet anus vaccine will do Increased frequency of urination 181056956 R35.0 POC UA negative, unable to send for culture due to limited supplycall with any new/worsen ing symptoms Chronic ob structive pulmonary disease 27041458 J44.9 needs referral to new pulmonolog ist, she will get the name and let us know where she'd like to godoing well otherwise with current inhaler regimen Impaired f asting glycemia 600224641 R73.01 improving, recent A1C 5.2 Bone density finding 385 849459 M85.80 results 03/2022 reviewed - low bone massFRAX score reviewed: 10 y major risk 11%, hip 3.3%prefer s to continue to optimize vitamin D, calcium, and weight-godwin ring and muscle-str engthening repeat scan 2 years Major depr ession, melancholic type 908145248 F33.1 reports acute on chronic depression does virtual therapy which helpsalso continues on sertraline Tobacco user 195513552 Z 72.0 We discussed your smoking today for more than 3 minutes. Cigarette use is the leading cause of preventabl e disease, disability , and in the [place]. We talked about tools and medication s available to help you in smoking cessation. We discussed utilizing our smoking cessation head girls golf coach and online resources. Your personal goal: to quit! Multiple n odules of lung 724815875 R91.8 per problem list/forme r PCP CE - non-cancer ous. followed by Dr. Leavitt . 09/04/21 note - surveillan ce is complete. pt interested in low dose CT screening to use as f/u as well, as above. Candidiasis of mouth 797 47946 B37.0 will treat with darian per patient preference continue good oral hygiene after inhaler usecall if not resolving History of subtotal thyroidectomy 487809730 Z90.09 original concern for metastatic CA as multiple lung nodules, PET lit up mass in thyroid, now s/p subtotal thyroidect yeni, not on medication , following with Dr. Vazquez regularly History of partial resection of colon 962683274 Z90.49 pre cancerous polyp removal 2008, gets colonoscop ies q5 years [id number] Walter López MD , [facility], OFFICE [address] [place] [address] 05/18/2023 11:17:42 05/19/2023 14:44:12 [id number] JANEE SHIELDS MD , [facility], OFFICE [address] [place] [address] 02/05/2024 13:40:32 02/05/2024 17:40:33 Cough 33354085 R05.9 Essential hypertension 78478112 I10 Has been elevated in the past so will monitor closely. Reduce nifedipine to 60 mg daily. Continue losartan and labetolol. Mixed hyperlipidemia 267 691011 E78.2 She would like to try discontinu ing the statin. Agreed this is fine but we should recheck her cholestero l in a month. Lightheadedness 41927781 8 R42 Mostly with standing. I think [...] the beta fidel. Unintentio nal weight loss 487276158 R63.4 Thinks this was due to breaking her teeth, sore teeth. Advised her to continue to use her protein shakes. Will check some labs as above. Will need to monitor. Chronic ob structive pulmonary disease 94566075 J44.9 Continue inhalers and follow up with pulm. Refilled albuterol - see below. Abnormal gait 22607525 R 26.9 She does have a stiff and tentative gait. Unclear whether this is due to deconditio luisito, her concerns about falling or something neurologic al. Will re-evaluat e at next visit. 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 Not on replacemen t.Update TFTs since having sx. Chronic ob structive pulmonary disease 65721046 J44.9 Clinically . Recent PFTs (08/30) c/w emphysema or interstiti al lung disease.Di scussed this in relation to smoking and reasons to quit. Cigarette smoker 5798928 7 F17.210 Since no clear evidence of metastatic disease, discussed risks/harm s of smoking. Tobacco user 347458825 Z 72.0 counseling . Thyroid fu nction tests abnormal 885842373 R94.6 Not controlled . TSH= 2.3 (03/02) was 1.32 (01/31) ft4= 0.71 (03/02); was 0.7 (07/02) She is having multiple sx that might be c/w insufficie nt thyroid. Low T4 in setting of normal TSH is not c/w primary abnormalit y. Suggests possibilit y of secondary (pituitary ) issue.che k labs. Dizziness 565031418 R42 Not controlled Orthostati cs show now rise in HR with standing (drops systolic > 20 but not hypotensiv e).On labetalol- 150 bid (was 300 bid). decreased a year ago (?06/01?)c heck cortisol/a cth. If OK, may want to review use of labetalol vs. change to alternativ e. Osteopenia with high fracture risk 1756867760 31913 M85.80 BMD @ VMGL1-L4= -0.1 (05/01) .Femoral Neck= -1.9 (05/01)Left Total Hip= -1.5 (05/01)Risk s: thin, white, post-menop ausal and smoker. Has had wrist fx. Update with new baseline. [id number] Everardo Vazquez MD Endocrino logy, [facility] [address] [place] [address] 06/23/2024 13:35:00 06/27/2024 06:21:22 Thyroid function tests abnormal 865204009 R94.6 Not controlled . TSH=4.12 (06/02) was [...] related to thyroid. 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 Not on replacemen t.Update TFTs since TSH is slowly rising (although still WNL). Dizziness 140709837 R42 Not controlled Orthostati cs showed rise in HR with standing (drops systolic > 20 but not hypotensiv e).On labetalol- 150 bid (was 300 bid). decreased a year ago (?06/01?) Checked cortisol/a cth and those were OKMay want to review use of labetalol vs. change to alternativ e. Osteopenia with high fracture risk 7452099868 17256 M85.80 BMD @ VMGL1-L4= -0.1 (05/01) .Femoral Neck= -1.9 (05/01)Left Total Hip= -1.5 (05/01)Risk s: thin, white, post-menop ausal and smoker. Has had wrist fx. Recommend: - Update with new baseline in future.- Talk to PCP about physical therapy focus on exercises that don't make dizziness worse. Chronic ob structive pulmonary disease 56727995 J44.9 Clinically . Recent PFTs (08/30) c/w emphysema or interstiti al lung disease.Di scussed this in relation to smoking and reasons to quit. Cigarette smoker 3669464 7 F17.210 Since no clear evidence of metastatic disease, discussed risks/harm s of smoking. Tobacco user 091368257 Z 72.0 counseling . Health Concerns Section Related Observation LastModified by Organization Detai ls LastModified Time None Recorded Concern Status LastModified by Organization Details LastModified Time None Recorded Advance Directives Directive None Recorded Payers Insurance Date Sequence Insurance Name Policy Number Policy Coppola Covered Member ID Coppola Member ID Guarantor Name 06/23/2024 1 [facility] (MEDICARE REPLACEMENT/ADV ANTAGE - HMO) [id number] Linda Diehl [id number] Linda Diehl 08/01/2024 1 [facility] (MEDICARE REPLACEMENT/ADV ANTAGE - PPO) [id number] Linda Diehl [id number] Linda Diehl 12/17/2021 1 [facility]-[employer]IGNA - BULGARIAN PLAN ADMINISTRATORS - CIGNA (PPO) [id number] Linda Diehl [id number] Linda Diehl 12/17/2021 1 [facility]-[employer] - CIGNA (PPO) [id number] Linda Diehl [id number] Linda Diehl 06/16/2024 1 [facility] (MEDICARE REPLACEMENT/ADV ANTAGE - PPO) [id number] Linda Diehl [id number] Linda Diehl 07/29/2024 PAYMENT PLAN Linda Diehl 12/17/2021 1 [employer]IG[employer] [id number] Linda Diehl [id number] Linda Diehl 12/17/2021 1 [place] 2 (POS) [id number] Linda Diehl [id number] Linda Diehl 12/17/2021 1 [facility] - OPEN ACCESS PLUS (PPO) [id number] Linda Diehl [id number] Linda Diehl 12/17/2021 1 [place] [id number] Linda Diehl [id number] Linda Diehl 12/17/2021 1 [employer] - CHOICE POS II (HMO) [id number] Linda Diehl [id number] Linda Diehl 12/17/2021 1 [place] [facility] AGUDELO [facility] [employer] - PERSONAL CHOICE (PPO) [id number] Linda Diehl [id number] Linda Diehl 12/17/2021 1 [employer]IG[employer] (PPO) Linda Diehl [id number] Linda Diehl 12/17/2021 1 [employer] [place] [facility] [id number] Linda Diehl [id number] Linda Diehl 12/17/2021 1 MED[place]: [facility] Linda Diehl [id number] Linda Carlosnerissa 02/05/2024 2 [employer] (MEDICARE SUPPLEMENT) Linda Diehl [id number] Linda Diehl Notes Date Note Type Note [...] Risk Assesment:Family History of Coronary Artery Disease(father ID age 62);Does not participate in regular exercise [...] pressure; Has been difficult to control. Sees personal development mentor. On 3 agents. 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 Has COPD - sees pulm, uses a daily inhaler and albuterol prn JANEE SHIELDS MD [address] [place] [address], [phone], [facility] 02/05/2024 16:07:07 4 text/html ThyroidReported bypatient.Previous [...] diarrhea (loose bowels on softener.); Had 5HIAA- hr=7.2 (ref < 6)but pH [...] or evaluation until current issues came up.a/vmg-smoking [id number] bypatient.ImportanceOn a scale of 1-10 with 1 [...] better (but still high). 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 [...] suspicious. Had lobectomy (07/30) Bx done through [facility] Radiology: 2.2x1.7x2.9 (5 passes)- reported [...] compared to July 2020. Everardo Vazquez MD [address] [place] [address], [phone], [facility] 05/05/2024 12:57:58 4 text/html ThyroidReported bypatient.Previous Evaluation:Previous biopsy cytology ([place] IV: Suspicious for follicular neoplasm. Genomic sequencing [...] or evaluation until current issues came up.a/vmg-smoking [id number] bypatient.ImportanceOn a scale of 1-10 with 1 [...] better (but still high). 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 [...] suspicious. Had lobectomy (07/30) Bx done through [facility] Radiology: 2.2x1.7x2.9 (5 passes)- reported [...] compared to July 2020. Everardo Vazquez MD [address] [place] [address], [phone], [facility] 06/26/2024 18:32:05 OBGyn Episode No OBEpisode recorded.
--- OUTSIDE RECORDS SUMMARY | 2025-02-20 13:31 | XMS_ITS | Clinical Summary ---
Author Organization [facility] Address [address] [place] [address] Care Team Providers Care Hand Dry Cleaner Name Role Phone Unavailable Primary Care Provider [...] Description 03/15/2025 1:00 PM EDT Office Visit [facility] [place] [address] [facility], [place] [address] Salvador Tarango MD [address] [address] Health Maintenance Due Date Last Done Comments [...] patient's age to complete this topic Insurance [facility] MEDIC[facility]
== END ==
LOC: HO.CARD 12:37
PROVIDERS: PCP Nurse Practitioner Family; Visit Provider Internal Medicine Cardiovascular Disease
DX: R00.2 Palpitations (principal)
CPT/HCPCS: 93246

== ENCOUNTER → 2025-02-20 12:43 | Outpatient (BNV) | payer MEDICARE, SELFPAY | PROVIDERS: PCP Nurse Practitioner Family; Visit Provider Internal Medicine Cardiovascular Disease | DX: I49.1 Atrial premature depolarization (principal) | CPT/HCPCS: 93248 ==

== ENCOUNTER → 2025-02-21 14:36 | Outpatient (REF) | payer MEDICARE, OTHER, SELFPAY ==
--- NOTE | 2025-02-21 14:40 | CA_ITS ---
Transthoracic Echocardiogram Patient (Last, First, Middle): Linda Diehl A Gender: Female Date of : 1955 Age: 69 Procedure Date: 02/21/2025 Procedure Type: Transthoracic Echocardiogram Location: OP Height: 160.02 cm Weight: 46.72 kg BSA: 1.46 m2 Heart Rate: bpm BP: 120 / 70 mmHg Sleeve Separator: JEAN PAUL Referring MD: Xu Mckenzie MD Symptoms: Z01.810 - Encounter for preprocedural cardiovascular examination Study Quality: Fair ECG Rhythm: Sinus Conclusions: - The left ventricular systolic function is normal. The calculated ejection fraction is 65% by biplane method. - There is mild calcification of the aortic valve. - No obvious valvular pathology seen on this study. - Moderate plaque is seen in the ascending aorta. Findings Left Ventricle Normal left ventricular cavity size. There is normal left ventricular wall thickness. The left ventricular systolic function is normal. The calculated ejection fraction is 65% by biplane method. There is no evidence of regional wall motion abnormalities. Diastolic function is normal for age. Right Ventricle Normal right ventricular cavity size and systolic function. Atria Both atria are normal in size. Aortic Valve There is a normal trileaflet aortic valve. There is mild calcification of the aortic valve. There is no aortic valve stenosis. There is no aortic valve regurgitation. Mitral Valve The mitral valve appears normal. There is no mitral valve regurgitation. There is no mitral valve stenosis. Pulmonic Valve The pulmonic valve is likely normal. Tricuspid Valve There is mild tricuspid valve regurgitation. Borderline RVSP. Great Vessels The aorta was not well visualized. The sinuses of valsalva is normal in size. Moderate plaque is seen in the ascending aorta. Venous The inferior vena cava is normal in size and collapses greater than 50% with inspiration. Pericardium/Pleural There is no evidence of pericardial effusion. Prior Study Comparison No prior study available for comparison. Recommendations, Care & Conclusions No obvious valvular pathology seen on this study. Measurements 2D Linear Measurements IVSd: 0.89 0.6-0.9/0.6-1.0 cm LVIDd: 3.48 3.9-5.3/4.2-5.9 cm LVIDd Index: 2.38 2.4-3.2/2.2-3.1 cm/m2 LVIDs: 2.22 2.0-3.6 cm LVPWd: 0.90 0.7-1.1 cm LA Diam: 2.20 2.7-3.8/3.0-4.0 cm LAIDs Index: 1.51 1.5-2.3 cm/m2 LV Mass: 108.30 67-162/88-224 g LV Mass Index: 74.18 43-95/49-115 g/m2 LVOT Diam: 2.20 3.0+(-)1.3 cm 2D Systolic Function EF 4C: 67.30 >55% EF 2C: 64.20 >55% EF BiP: 65.00 >55% Mitral Valve MV Pk E: 0.56 MV PK A: 0.66 MV Decel Time: 286.00 E/A: 0.80 E'Lateral: 6.20 E'Medial: 5.33 E/E' Med: 10.50 E/E' Lat: 9.00 PHT: 84.00 MVA PHT: 2.62 Decel Roosevelt: 1.95 Aortic Valve AoV Pk Nigel: 1.27 AoV Mn Nigel: 0.83 AoV VTI: 0.30 AoV Pk Grad: 6.00 Aov Mn Grad: 3.00 YOLY Cont.VTI: 2.94 LVOT LVOT Pk Nigel: 1.15 LVOT Mn Nigel: 0.61 LVOT VTI: 0.24 LVOT Pk Grad: 5.00 LVOT Mn Grad: 2.00 LVOT Diam: 2.20 LVOT Area: 3.80 Diastolic Function MV Pk E: 0.56 MV Pk A: 0.66 E/A: 0.80 E'Medial: 5.33 E/E' Med: 10.50 E' Laterial: 6.20 E/E' Lat: 9.00 Right Ventricle TAPSE (mm): 28.00 TVS' Nigel: 13.80 Tricuspid Valve TR Pk Nigel: 2.90 TR Pk Grad: 34.00 RA Press: 3.00 RVSP: 37.00 Great Vessels Aorta Sinus of Valsalva: 3.30 2.0-3.5 cm Updated in Other Vendor System with Status of Final Aguilar Gaston MD electronically signed on 02/23/2025 9:55:23 AM with status of Final
--- OUTSIDE RECORDS SUMMARY | 2025-02-21 15:57 | XMS_ITS | Clinical Summary ---
Author Organization [facility] Address [address] [place] [address] Care Team Providers Care Is Analyst Name Role Phone Unavailable Primary Care Provider [...] Description 03/15/2025 1:00 PM EDT Office Visit [facility] [address] [place] [address] Salvador Tarango MD [address] [address] Health Maintenance Due Date Last Done Comments [...] patient's age to complete this topic Insurance [facility] MEDICARE
--- OUTSIDE RECORDS SUMMARY | 2025-02-21 15:57 | XMS_ITS | Data Portability ---
Author Organization [facility] Address [address] [place] [address] Care Team Providers Care Screen Tender Name Role Phone EVERARDO VAZQUEZ Demonstrator Knitting EMELIA ELIZABETH Primary Care Provider [phone] DEANNA JIMENEZ Orthopedist PARVEEN DELVALLE, DMITRIY Orthopedic Coder [phone] Assessment Encounter Date Assessment Date Assessment LastModified [...] recorded. Lab TSH, serum or plasma 2023 [facility], [address] [place] [address], [address], 12:31:07 T4, free, serum 2023 [facility], [address] [place] [address], 00707, 11:52:26 T3, total, serum 2023 [facility], [address] [place] [address], [address], 11:09:06 FSH (follicle-s timulating hormone), serum 2023 024 [facility], [address] [place] [address], 530[address], 11:09:07 igf-1 (insulin-li ke growth factor), serum 2023 [facility], [address] [place] [address], 10296, 14:43:26 cortisol, am, serum 2023 [facility], [address] [place] [address], 02364, 14:43:25 acth, plasma 2023 024 [facility], [address] [place] [address], 874[address], 14:43:27 prolactin, serum 2023 [facility], [address] [place] [address], 817[address], 4 14:43:27 lipid panel, serum 2023 024 [facility], [address] [place] [address], 226[address], 4 11:46:37 CBC 2023 024 [facility], [address] [place] [address], 19956, 4 15:23:54 TSH, serum or plasma 2023 024 [facility], [address] [place] [address], 85[address], 4 15:23:40 BMP, serum or plasma 2023 024 [facility], [address] [place] [address], 238[address], 4 11:46:37 urinalysis, dipstick 2022 023 [facility], [address] [place] [address], [address], 3 13:57:42 Referral None recorded. Procedures None recorded. Surgeries None recorded. Imaging MAMMO, screening, tomosynthes is, bilateral 2022 023 [facility] ([facility]), [address], [place], [place], [address], 3 16:06:19 LDCT, chest, for lung cancer screening - Please enroll this patient in the LDCT Lung Cancer Screening Program (for ordering, follow up and shared decision making) has hx known nodules. Dr. Leavitt 09/04/212022 023 [facility], [address] [place], [address], 3 17:26:04 Medication Orders albuterol sulfate HFA 90 mcg/actuati on aerosol inhaler 2023 024 MICHELE [facility], [address] [place] [address], [facility] [address], [place], [id number], 4 14:18:20 clotrimazol e 10 mg darian 2022 023 [email or web address] [facility], [address] [place] [address], [address], [place], [phone], 4 14:14:41 Patient TargetsNo targets recorded. Patient Instructions Encounter Date Encounter Id Patient Instructions Last Modified By Organization Details Last Modified Time 01/01/2023 [id number] high cholesterol lifestyle changes Not available 01/01/2023 14:40:56 advance directives: care instructions Not available 01/01/2023 14:40:57 preventing falls: care instructions Not available 01/01/2023 14:40:57 hearing loss: care instructions Not available 01/01/2023 14:40:56 well visit, over 65: care instructions Not available 01/01/2023 14:40:57 05/05/2024 [id number] - Get labs done before 8AM. [email or web address] Not available 05/05/2024 12:46:40 6 months/ 40 minutes Counseling done Contemplating quitting Goal for follow up visit My Health To Do List go to [email or web address] or call contact [email or web address] Counseling done Goal for follow up visit My Health To Do List Not available 05/03/2024 09:03:04 06/23/2024 [id number] [email or web address] Not available 06/26/2024 18:30:45 6 months/ 40 minutes Counseling done Contemplating quitting Goal for follow up visit My Health To Do List go to [email or web address] or call contact [email or web address] Counseling done Goal for follow up visit [...] furth er confi rmati on Not Available [address], [address], 12/25/2022 16:23:00 12/26/1912/25/2022 HGB A1C estimated average glucose 102.5 mg/dL Not Available [address], [address], 12/25/2022 16:23:00 12/26/1912/25/2022 VITAM IN D 25-HY [...] er than 30 ng/mL . Not Available [address], [address], 12/25/2022 16:26:10 12/26/1912/25/2022 TSH TSH 1.79 uIU/m L 0.50-6 .00 The Ameri can Colle ge of Endoc rinol ogy and Ameri can Thyro id Assoc iatio n recom mend goal TSH value s betwe en 0.4-4 .0 mIU/m L. Not Available [address], [address], 12/25/2022 16:26:15 12/26/1912/25/2022 BASIC METAB OLIC PANEL glucose 120 mg/dL 70-100 high Not Available [address], [address], 12/25/2022 16:33:09 12/26/19 23 12/25/2022 BASIC METAB OLIC PANEL BUN 7 mg/dL 7-18 Not Available [address], [address]594, 12/25/2022 16:33:09 12/26/1912/25/2022 BASIC METAB OLIC PANEL creatinine 0.8 mg/dL 0.8-1. 3 Not Available [address], [address], 12/25/2022 16:33:09 12/26/19 23 12/25/2022 BASIC METAB OLIC PANEL B/C 8.8 ratio Not Available [address], [address], 12/25/2022 16:33:09 12/26/1912/25/2022 BASIC METAB OLIC PANEL [...] be used in pregn junaid. Not Available [address], [address], 12/25/2022 16:33:09 12/26/19 23 12/25/2022 BASIC METAB OLIC PANEL sodium 141 mmol/ L 136-14 5 Not Available [address], [address], 12/25/2022 16:33:09 12/26/19 23 12/25/2022 BASIC METAB OLIC PANEL potassium 3.6 mmol/ L 3.5-5. 1 Not Available [address], [address], 12/25/2022 16:33:09 12/26/19 23 12/25/2022 BASIC METAB OLIC PANEL chloride 98 mmol/ L 96-107 Not Available [address], [address], 12/25/2022 16:33:09 12/26/19 23 12/25/2022 BASIC METAB OLIC PANEL anion gap 11.7 5.0-15 .0 Not Available [address], [address], 12/25/2022 16:33:09 12/26/19 23 12/25/2022 BASIC METAB OLIC PANEL CO2 31 mmol/ L 21-32 Not Available [address], [address], 12/25/2022 16:33:09 12/26/19 23 12/25/2022 BASIC METAB OLIC PANEL calcium 9.4 mg/dL 8.5-10 .3 Not Available [address], [address], 12/25/2022 16:33:09 12/26/19 23 12/25/2022 LIPID PANEL cholesterol 178 mg/dL <200 mg/dl Rola able 200-2 39 mg/dl Borde rline High >240 mg/dl High Not Available [address], [address], 12/25/2022 16:33:11 12/26/19 23 12/25/2022 LIPID PANEL triglyceride s 76 mg/dL <150 mg/dL Mercedes l 150-1 99 mg/dL Borde rline High 200-4 99 mg/dL High >500 mg/dL Very High Not Available [address], [address], 12/25/2022 16:33:11 12/26/19 23 12/25/2022 LIPID PANEL direct HDL 80 mg/dL <40 mg/dl - Major Risk for CHD >60 mg/dl - Negat wesley Risk for CHD Not Available [address], [address], 12/25/2022 16:33:11 12/26/19 23 12/25/2022 DIREC T [...] r is not braxton liang. Not Available [address], [address], 12/25/2022 16:33:14 01/02/20 23 01/01/2023 POC UA glu UA NEGATI VE Not Available [facility] [address] [place] [address], [address], 01/01/2023 13:57:42 01/02/20 23 01/01/2023 POC UA clarity UA CLEAR Not Available [facility] [address] [place] [address], [address], 01/01/2023 13:57:42 01/02/20 23 01/01/2023 POC UA uro UA 0.[address] [facility] [address] [place] [address], 07[address], 01/01/2023 13:57:42 01/02/20 23 01/01/2023 POC UA ket UA NEGATI VE Not Available [facility] [address] [place] [address], [address], 01/01/2023 13:57:42 01/02/20 23 01/01/2023 POC UA pro UA NEGATI VE Not Available [facility] [address] [place] [address], [address], 01/01/2023 13:57:42 01/02/20 23 01/01/2023 POC UA nit UA NEGATI VE Not Available [facility] [address] [place] [address], [address]38, 01/01/2023 13:57:42 01/02/20 23 01/01/2023 POC UA rebekah UA NEGATI VE Not Available [facility] [address] [place] [address], [address], 01/01/2023 13:57:42 01/02/20 23 01/01/2023 POC UA pH UA 7.[address] [facility] [address] [place] [address], [address], 01/01/2023 13:57:42 01/02/20 23 01/01/2023 POC UA SG UA 1.[address] [facility] [address] [place] [address], 9[address], 01/01/2023 13:57:42 01/02/20 23 01/01/2023 POC UA color UA YELLOW Not Available [facility] [address] [place] [address], 00[address], 01/01/2023 13:57:42 01/02/20 23 01/01/2023 POC UA blo UA NEGATI VE Not Available [facility] [address] [place] [address], 848[address], 01/01/2023 13:57:42 01/02/20 23 01/01/2023 POC UA bren UA NEGATI VE Not Available [facility] [address] [place] [address], 95362, 01/01/2023 13:57:42 02/05/20 24 02/05/2024 HGB A1C [...] furth er confi rmati on Not Available [address], [address], 02/05/2024 15:16:31 02/05/20 24 02/05/2024 HGB A1C estimated average glucose 105.4 mg/dL Not Available [address], 00793, 02/05/2024 15:16:31 02/05/20 24 02/05/2024 CBC WBC 7.83 K/ L 3.98-1 0.04 Not Available [address], 16059, 02/05/2024 15:23:54 02/05/20 24 02/05/2024 CBC RBC 4.36 M/ L 3.93-5 .22 Not Available [address], 30224, 02/05/2024 15:23:54 02/05/20 24 02/05/2024 CBC HGB 14.3 g/dL 11.2-1 5.7 Not Available [address], [address]37, 02/05/2024 15:23:54 02/05/20 24 02/05/2024 CBC HCT 41.8 % 34.1-4 4.9 Not Available [address], 04982, 02/05/2024 15:23:54 02/05/20 24 02/05/2024 CBC MCV 95.9 fL 79.4-9 4.8 high Not Available [address], 98603, 02/05/2024 15:23:54 02/05/20 24 02/05/2024 CBC MCH 32.8 pg 25.6-3 2.2 high Not Available [address], 9[address]87, 02/05/2024 15:23:54 02/05/20 24 02/05/2024 CBC MCHC 34.2 g/dL 32.2-3 5.5 Not Available [address], [address], 02/05/2024 15:23:54 02/05/20 24 02/05/2024 CBC plt 225 K/ L 182-36 9 Not Available [address], 7[address], 02/05/2024 15:23:54 02/05/20 24 02/05/2024 CBC MPV 10.8 fL 9.4-12 .3 Not Available [address], 45230, 02/05/2024 15:23:54 02/05/20 24 02/05/2024 CBC neut% 71.8 % 34.0-7 1.1 high Not Available [address], 09205, 02/05/2024 15:23:54 02/05/20 24 02/05/2024 CBC neut# 5.62 1.56-6 .13 Not Available [address] [place], [address], 02/05/2024 15:23:54 02/05/20 24 02/05/2024 CBC lymph % 20.9 % 19.3-5 1.7 Not Available [address], [address], 02/05/2024 15:23:54 02/05/20 24 02/05/2024 CBC lymph # 1.64 K/ L 1.18-3 .74 Not Available [address], 74[address], 02/05/2024 15:23:54 02/05/20 24 02/05/2024 CBC mono% 5.6 % 4.7-12 .5 Not Available [address], 93251, 02/05/2024 15:23:54 02/05/20 24 02/05/2024 CBC mono# 0.44 0.24-0 .56 Not Available [address], [address], 02/05/2024 15:23:54 02/05/20 24 02/05/2024 CBC eo% 0.8 % 0.7-5. 8 Not Available [address], 71867, 02/05/2024 15:23:54 02/05/20 24 02/05/2024 CBC eo# 0.06 0.04-0 .36 Not Available [address], 51728, 02/05/2024 15:23:54 02/05/20 24 02/05/2024 CBC baso% 0.6 % 0.1-1. 2 Not Available [address], 6[address], 02/05/2024 15:23:54 02/05/20 24 02/05/2024 CBC baso# 0.05 0.00-0 .08 Not Available [address], 98019, 02/05/2024 15:23:54 02/05/20 24 02/05/2024 CBC RDW-CV 12.3 % 11.7-1 4.4 Not Available [address], [address]1604, 02/05/2024 15:23:54 02/05/20 24 02/05/2024 CBC Ig% 0.300 % 0.000- 1.500 Ig % >0.5 Indic ates possi ble Left Shift Not Available [address], [address], 02/05/2024 15:23:54 02/05/20 24 02/05/2024 CBC Ig# 0.020 0.000- 0.093 Not Available [address], 49948, 02/05/2024 15:23:54 02/05/20 24 02/05/2024 CBC NRBC% 0.0 % 0.0-0. 2 Not Available [address], [address], 02/05/2024 15:23:54 02/05/20 24 02/05/2024 CBC NRBC# 0.000 0.000- 0.012 Not Available [address], 91957, 02/05/2024 15:23:54 02/05/20 24 02/08/2024 BASIC METAB OLIC PANEL glucose 113 mg/dL 70-100 high Not Available [address], [address], 02/08/2024 11:46:36 02/05/20 24 02/08/2024 BASIC METAB OLIC PANEL BUN 16 mg/dL 7-18 Not Available [address], [address], 02/08/2024 11:46:36 02/05/20 24 02/08/2024 BASIC METAB OLIC PANEL creatinine 0.7 mg/dL 0.8-1. 3 low Not Available [address], 59695, 02/08/2024 11:46:36 02/05/20 24 02/08/2024 BASIC METAB OLIC PANEL B/C 22.9 ratio Not Available [address], [address], 02/08/2024 11:46:36 02/05/20 24 02/08/2024 BASIC METAB [...] be used in pregn junaid. Not Available [address], [address], 02/08/2024 11:46:36 02/05/20 24 02/08/2024 BASIC METAB OLIC PANEL sodium 142 mmol/ L 136-14 5 Not Available [address], [address], 02/08/2024 11:46:36 02/05/20 24 02/08/2024 BASIC METAB OLIC PANEL potassium 4.5 mmol/ L 3.5-5. 1 Not Available [address], 70714, 02/08/2024 11:46:36 02/05/20 24 02/08/2024 BASIC METAB OLIC PANEL chloride 102 mmol/ L 96-107 Not Available [address], 6[address], 02/08/2024 11:46:36 02/05/20 24 02/08/2024 BASIC METAB OLIC PANEL anion gap 11.9 5.0-15 .0 Not Available [address], [address], 02/08/2024 11:46:36 02/05/20 24 02/08/2024 BASIC METAB OLIC PANEL CO2 28 mmol/ L 21-32 Not Available [address], 00395, 02/08/2024 11:46:36 02/05/20 24 02/08/2024 BASIC METAB OLIC PANEL calcium 9.5 mg/dL 8.5-10 .3 Not Available [address], [address], 02/08/2024 11:46:36 02/05/20 24 02/08/2024 LIPID PANEL cholesterol 204 mg/dL <200 mg/dl Rola able 200-2 39 mg/dl Borde rline High >240 mg/dl High Not Available [address], [address], 02/08/2024 11:46:37 02/05/20 24 02/08/2024 LIPID PANEL triglyceride s 63 mg/dL <150 mg/dL Mercedes l 150-1 99 mg/dL Borde rline High 200-4 99 mg/dL High >500 mg/dL Very High Not Available [address], [address], 02/08/2024 11:46:37 02/05/20 24 02/08/2024 LIPID PANEL direct HDL 72 mg/dL <40 mg/dl - Major Risk for CHD >60 mg/dl - Negat wesley Risk for CHD Not Available [address], [address], 02/08/2024 11:46:37 02/05/20 24 02/08/2024 DIREC T [...] r is not braxton tavera. Not Available [address], [address], 02/08/2024 11:46:38 02/05/20 24 02/08/2024 TSH TSH 1.32 uIU/m L 0.50-6 .00 The Ameri can Colle ge of Endoc rinol ogy and Ameri can Thyro id Assoc iatio n recom mend goal TSH value s betwe en 0.4-4 .0 mIU/m L. Not Available [address], [address], 02/08/2024 15:23:40 02/29/20 24 03/01/2024 FREE T4 free T4 0.71 NG/dL 0.75-1 .54 low Not Available [address], [address], 03/01/2024 10:48:50 02/29/20 24 03/01/2024 VITAM IN [...] er than 30 ng/mL . Not Available [address], [address], 03/01/2024 10:55:50 02/29/20 24 03/01/2024 TSH TSH 2.30 uIU/m L 0.50-6 .00 The Ameri can Colle ge of Endoc rinol ogy and Ameri can Thyro id Assoc iatio n recom mend goal TSH value s betwe en 0.4-4 .0 mIU/m L. Not Available [address], [address], 03/01/2024 11:03:38 05/31/20 24 05/31/2024 FREE T4 free T4 0.80 NG/dL 0.75-1 .54 Not Available [address], [address], 05/31/2024 11:52:26 05/31/20 24 05/31/2024 TSH TSH 4.12 uIU/m L 0.50-6 .00 The Ameri can Colle ge of Endoc rinol ogy and Ameri can Thyro id Assoc iatio n recom mend goal TSH value s betwe en 0.4-4 .0 mIU/m L. Not Available [address], [address], 05/31/2024 12:31:07 05/31/20 24 06/01/2024 TOTAL T3 total T3 1.28 NG/mL 0.70-1 .70 Not Available [address], [address], 06/01/2024 11:09:06 05/31/20 24 06/01/2024 FSH FSH 70.6 mIU/m L Male: 1.0 - 42.5 mIU/m L Femal e Ovula ting: Folli cular Phase : 2.7 - 15.4 mIU/m L Peak: 3.9 - 22.0 mIU/m L Lutea l Phase : 1.0 - 14.4 mIU/m L Postm enopa usal: 25.0 - 160.0 mIU/m L Not Available [address], [address], 06/01/2024 11:09:07 05/31/20 24 06/01/2024 LIPID PANEL cholesterol 219 mg/dL <200 mg/dl Rola able 200-2 39 mg/dl Borde rline High >240 mg/dl High Not Available [address], [address], 06/01/2024 14:38:40 05/31/20 24 06/01/2024 LIPID PANEL triglyceride s 150 mg/dL <150 mg/dL Mercedse l 150-1 99 mg/dL Borde rline High 200-4 99 mg/dL High >500 mg/dL Very High Not Available [address], [address], 06/01/2024 14:38:40 05/31/20 24 06/01/2024 LIPID PANEL direct HDL 70 mg/dL <40 mg/dl - Major Risk for CHD >60 mg/dl - Negat wesley Risk for CHD Not Available [address], [address], 06/01/2024 14:38:40 05/31/2006/01/2024 LDL - CALCU LATED [...] r is not braxton tavera. Not Available [address], [address], 06/01/2024 14:38:42 05/31/20 24 06/01/2024 BASIC METAB OLIC PANEL glucose 104 mg/dL 70-100 high Not Available [address], [address], 06/01/2024 15:00:52 05/31/20 24 06/01/2024 BASIC METAB OLIC PANEL BUN 14 mg/dL 7-18 Not Available [address], [address], 06/01/2024 15:00:52 05/31/20 24 06/01/2024 BASIC METAB OLIC PANEL creatinine 0.8 mg/dL 0.8-1. 3 Not Available [address], [address]67, 06/01/2024 15:00:52 05/31/20 24 06/01/2024 BASIC METAB OLIC PANEL B/C 17.5 ratio Not Available [address], [address], 06/01/2024 15:00:52 05/31/20 24 06/01/2024 BASIC METAB [...] be used in pregn junaid. Not Available [address], [address], 06/01/2024 15:00:52 05/31/2006/01/2024 BASIC METAB OLIC PANEL sodium 144 mmol/ L 136-14 5 Not Available [address], [address], 06/01/2024 15:00:52 05/31/2006/01/2024 BASIC METAB OLIC PANEL potassium 4.1 mmol/ L 3.5-5. 1 Not Available [address], [address]874, 06/01/2024 15:00:52 05/31/2006/01/2024 BASIC METAB OLIC PANEL chloride 104 mmol/ L 96-107 Not Available [address], [address]84, 06/01/2024 15:00:52 05/31/2006/01/2024 BASIC METAB OLIC PANEL anion gap 9.8 5.0-15 .0 Not Available [address], 00872, 06/01/2024 15:00:52 05/31/2006/01/2024 BASIC METAB OLIC PANEL CO2 30 mmol/ L 21-32 Not Available [address], [address]11, 06/01/2024 15:00:52 05/31/2006/01/2024 BASIC METAB OLIC PANEL calcium 9.7 mg/dL 8.5-10 .3 Not Available [address], [address], 06/01/2024 15:00:52 05/31/20 24 06/07/2024 IGF 1, LC/MS igf 1, lc/MS 129 NG/mL 34-245 Not Available [facility] [address], [place], [address], 06/07/2024 14:43:26 05/31/2006/07/2024 IGF 1, LC/MS Z score (female) 0.4 SD -2.0 - +2.0 This test was devel oped and its arnold tical perfo rmanc e kamari cteri stics have been deter mined by [employer] [facility]. It has not been clear ed or appro ariel by FDA. This assay has been valid ated pursu ant to the CLIA regul ation s and is used for clini laney purpo ses. Not Available [facility] [address], [place], [address], 06/07/2024 14:43:26 05/31/20 24 06/07/2024 ACTH, PLASM A acth, plasma 18 pg/mL 6-50 Refer ence range appli es only to speci mens colle cted betwe en 7am-1 0am. Not Available [facility] [address], [place], [address], 06/07/2024 14:43:26 05/31/20 24 06/07/2024 PROLA CTIN prolactin 9.4 NG/mL normal Refer ence Range Femal es Non-p regna nt 3.0-3 0.0 Pregn ant 10.0- 209.0 Postm enopa usal 2.0-2 0.0 Not Available [facility] [address], [place], [address], 06/07/2024 14:43:27 04/24/2004/24/2023 LDCT, chest , for lung cance r scree luisito No observ ation record ed. [facility] [address] [facility], [place], [address], 04/28/2023 17:05:43 04/27/20 23 04/27/2023 MAMMO , [...] Reji francis Physic frank: Jai Montaño ms [facility]) [address], [place], [address], 04/27/2023 16:30:52 Result Notes Documentation Provider Name [...] follow-up. OVERALL ASSESSMENT CATEGORY BI-RADS-1: Negative. The [employer] recommends annual screening mammography beginning at age 40 for women with average risk of breast cancer. ELECTRONICALLY SIGNED: Ronald Frausto M.D. on 04/27/2023 at 04:05:17 PM Reading Physician: Ronald Contreras LPN [facility] 04/27/2023 16:30:52 Problems Name Problem SNOMED Code Status Onset Date Resolution Date Notes Provider Name and Address Organization Details Recorded Time Pain of joint 92659090 Completed 01/01/2023 CATHERINE Garza [address] [place] [address], [phone] , [facility] 3 14:47:10 Backache 428207903 Completed 11/15/2014 Yeny Elizabeth NP [address] [place] [address], [phone] , [facility] 5 20:40:22 Sinusiti s [id number] Completed 11/15/2014 Yeny Elizabeth NP [address] [place] [address], [address] , [facility] 5 20:43:58 Sleep apnea 32162173 Active Not Available [facility] 4 00:24:30 Backache 724046304 Active Not Available [facility] 4 00:24:29 Impaired fasting glycemia 635458248 Active 2017 Not Available [facility] 4 00:24:29 Vitamin D deficien cy 96497392 Active 2020 Not Available [facility] 4 00:24:29 Multiple nodules of lung 519136630 Active 2020 non-canc erous. followed by Dr. Julio lawrence. 09/04/21 note - surveill ance is complete . Not Available [facility] 4 00:24:30 Chronic obstruct wesley pulmonar y disease 28725570 Active 2020 PFT 1 Not Available [facility] 4 00:24:29 Osteoart hritis of right hip joint 53410429570 9107 Active 2021 follows w/ [facility] ortho. Not Available [facility] 4 00:24:29 History of subtotal thyroide ctomy 647632725 Active 2021 Not Available [facility] 4 00:24:30 Decrease d body mass index 7792602 Completed 202101/01/2023 CATHERINE Garza [address] [place] [address], [phone] , [facility] 3 13:54:15 Bone density finding 282327700 Active 2022 Not Available [facility] 4 00:24:29 Major depressi on, melancho lic type 855057286 Active 2022 Not Available [facility] 4 00:24:29 History of partial resectio n of colon 995497969 Active 2022 Not Available [facility] 4 00:24:30 Mixed hyperlip idemia 740781269 Active Not Available [facility] 4 00:24:29 Head and neck swelling 759365084 Completed 200206/29/2013 Not Available [facility] 3 02:04:11 Single major depressi ve episode, mild Completed 200611/15/2014 Yeny Elizabeth NP [address] [place] [address], [address] , [facility] 5 20:42:37 Benign neoplasm of skin of trunk, excludin g scrotum Completed 200506/29/2013 Not Available [facility] 3 02:04:05 Essentia l hyperten camryn 04448197 Active Not Available [facility] 4 00:24:30 Chronic nonalcoh olic liver disease 01843098 Active Not Available [facility] 4 00:24:30 Gastroes ophageal reflux disease 769436531 Active Not Available [facility] 4 00:24:29 Non-toxi c uninodul ar goiter 881408500 Completed 11/15/2014 Yeny Elizabeth NP [address] [place] [address], [address] , [facility] 5 20:42:37 Anxiety state 351620738 Completed 11/15/2014 Yeny Elizabeth NP [address] [place] [address], [address] , [facility] 5 20:42:37 Acute pharyngi tis 673428275 Completed 06/29/2013 Not Available [facility] 3 02:01:17 Allergic rhinitis 57923505 Active Not Available [facility] 4 00:24:30 Epidermo id cyst of skin 176813311 Completed 200506/29/2013 Not Available [facility] 3 02:02:53 Elevated blood-pr essure reading without diagnosi s of hyperten camryn 864589528 Completed 200211/15/2014 Yeny Elizabeth NP [address] [place] [address], [address] , [facility] 5 20:40:22 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 Completed 11/15/2014 Yeny Elizabeth NP [address] [place] [address], [phone] , [facility] 5 20:40:22 Organic sleep disorder 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 Completed 11/15/2014 Yeny Elizabeth NP [address] [place] [address], [id number] , [facility] 5 20:40:22 Acute bronchit is [id number] Completed 06/29/2013 Not Available [facility] 3 02:01:36 Malaise and fatigue [id number] Completed 06/29/2013 Not Available [facility] 3 02:00:18 Blood in urine [id number] Completed 200511/15/2014 Yeny Elizabeth NP [address] [place] [address], [phone] , [facility] 5 20:43:58 Carpal tunnel syndrome 13009247 Active 2003 surgery 2010 Not Available [facility] 4 00:24:30 Kidney stone [id number] Completed 200701/01/2023 CATHERINE Garza [address] [place] [address], [phone] , [facility] 3 14:47:07 Ureteric stone [id number] Completed 200511/15/2014 Yeny Elizabeth NP [address] [place] [address], [phone] , [facility] 5 20:43:58 Right upper quadrant pain [id number] Completed 06/29/2013 Not Available [facility] 3 02:03:18 Sleep disorder 19612773 Completed 11/15/2014 Yeny Elizabeth NP [address] [place] [address], [address] , [facility] 5 20:40:22 Orthosta tic hypotens ion 92929624 Completed 11/15/2014 Yeny Elizabeth NP [address] [place] [address], [address] , [facility] 5 20:40:22 Lymphade nopathy 81187215 Completed 200206/29/2013 Not Available [facility] 3 02:03:13 Tobacco user [id number] Completed 200211/15/2014 Yeny Elizabeth NP [address] [place] [address], [address] , [facility] 5 20:42:37 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 200511/15/2014 Yeny Elizabeth NP [address] [place] [address], [address] , [facility] 5 20:43:58 Sprain of ankle 28450371 Completed 200406/29/2013 Not Available [facility] 3 02:02:51 Syncope and collapse 152097288 Completed 11/15/2014 Yeny Elizabeth NP [address] [place] [address], [address] , [facility] 5 20:40:22 Joint pain in ankle and foot Completed 200406/29/2013 Not Available [facility] 3 02:01:26 Acute sinusiti s 31971713 Completed 06/29/2013 Not Available [facility] 3 02:02:20 Finding by method 230145417 Completed 200206/29/2013 Not Available [facility] 3 02:01:56 Breast lump 01394710 Completed 200211/15/2014 Yeny Elizabeth NP [address] [place] [address], [address] , [facility] 5 20:40:22 Common cold 43565200 Completed 06/29/2013 Not Available [facility] 3 02:00:28 Mammogra phy abnormal 883088227 Completed 200611/15/2014 Yeny Elizabeth NP [address] [place] [address], [address] , [facility] 5 20:45:31 Idiopath ic peripher al neuropat hy 57496504 Completed 200711/15/2014 Yeny Elizabeth NP [address] [place] [address], [address] , [facility] 5 20:42:37 On examinat ion - a rash Completed 06/29/2013 Not Available [facility] 3 02:00:49 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 Not Available [facility] 4 00:24:30 Dysphagi a 89248440 Completed 11/15/2014 Yeny Elizabeth NP [address] [place], [address] , [facility] 5 20:40:22 Abnormal cervical Papanico laou smear 372243653 Completed 200711/15/2014 Yeny Elizabeth NP [address] [place] [address], [address] , [facility] 5 20:55:49 Non-orga evelyn sleep disorder 357416708 Completed 200511/15/2014 Yeny Elizabeth NP [address] [place] [address], [address] , [facility] 5 20:40:22 Open wound of scalp 425732627 Completed 06/29/2013 Not Available [facility] 3 02:04:18 Low back pain 565220643 Completed 01/01/2023 CATHERINE Garza [address] [place] [address], [address] , [facility] 3 14:47:05 Hypothyr oidism 54133320 Completed 200211/15/2014 Yeny Elizabeth NP [address] [place] [address], [address] , [facility] 5 20:42:37 Mononeur itis 78873782 Completed 200701/01/2023 CATHERINE Garza [address] [place] [address], [address] , [facility] 3 14:47:13 Abnormal findings on diagnost ic imaging of skull and head 053442528 Active Not Available [facility] 4 00:24:29 Pain in limb 48941056 Completed 200406/29/2013 Not Available [facility] 3 02:00:56 Heartbur n 51224717 Completed 06/29/2013 Not Available [facility] 3 02:03:55 Difficul ty speaking Completed 11/15/2014 Yeny Elizabeth NP [address] [place] [address], [address] , [facility] 5 20:40:22 Notes:Some problems listed i n Documents: #[id number], #[id number], #[id number], #[id number], #[id number], #[id number] could not be added to this patient's chart. Please review these documents and add these problems to the patient's chart manually as needed. Problem Notes None recorded. Procedures Surgical History Date Name Laterality Status Provider Name and Address Organization Details Recorded Time Smoking cessation counseling completed Rosa Tran LPN [facility] 06/21/2024 11:57:13 024 Smoking cessation counseling completed Rosa Tran [facility] 05/03/2024 09:03:04 023 Smoking cessation counseling cancelled Rayna Stapleton [facility] 06/29/2023 09:58:39 023 Smoking cessation counseling cancelled Rosa Tran [facility] 03/31/2023 14:40:47 023 Smoking cessation counseling completed CATHERINE Garza [address] [place] [address], [address], [facility] 01/01/2023 14:12:24 023 Medicare Wellness Visit completed Gisselle Cid [facility] 01/01/2023 13:36:59 Smoking cessation counseling completed Gisselle Cid [facility] 05/16/2022 14:20:29 022 Smoking cessation counseling completed Everardo Vazquez MD [address] [place] [address], [address], [facility] 04/03/2022 10:41:44 Medicare Wellness Visit completed Xiomy Gooden [facility] 12/23/2021 13:50:31 022 Alcohol use screening completed Xiomy Gooden [facility] 12/23/2021 13:50:31 022 Cardiovascular disease risk reduction counseling completed Xiomy Gooden [facility] 12/23/2021 13:50:31 Smoking cessation counseling completed Loreta Gloria RN [facility] 07/18/2021 11:27:55 021 Smoking cessation counseling completed Hailey Fleming [facility] 06/05/2021 10:57:46 10/04/2 021 partial lobectomy of thyroid completed Yeny Elizabeth NP [address] [place], [address], [facility] 06/02/2021 12:35:36 021 Biopsy of thyroid completed Dxiie Underwood LPN [facility] 01/03/2021 14:35:31 021 Medicare Wellness Visit completed Terrell Thompson [facility] 12/06/2020 08:49:12 021 COPD Screening completed Terrell Thompson [facility] 12/06/2020 11:33:22 021 prevention-cardio vascular risk reduction counseling completed Terrell Thompson [facility] 12/06/2020 08:49:12 021 prevention-annual alcohol misuse screening completed Terrell Thompson [facility] 12/06/2020 08:49:12 021 biopsy of thyroid completed Dixie Underwood LPN [facility] 12/20/2020 15:57:05 021 Medicare Wellness Visit completed Terrell Thompson [facility] 08/21/2020 08:16:38 021 prevention-cardio vascular risk reduction counseling completed Terrell Thompson [facility] 08/21/2020 08:16:38 021 prevention-annual alcohol misuse screening completed Terrell Thompson [facility] 08/21/2020 08:16:38 019 Nebulizer Tx completed Daneynedaalis [facility] 09/14/2018 18:02:56 014 Other (specify) completed Yeny Elizabeth NP [address] [place], [address], [facility] 11/15/2014 20:37:49 012 Suture/staple Removal completed Yeny Elizabeth NP [address] [place], [address], [facility] 09/19/2011 17:19:53 011 Carpal Tunnel Surgery completed Yeny Elizabeth NP [address] [place], [address], [facility] 09/12/2011 12:33:44 004 completed Not Available [facility] 1 06:05:52 Back Surgery completed Yeny alexandre NP [address] [place], [address], [facility] 04/10/2015 11:56:53 repair of tendon completed Dixie Underwood LPN [facility] 12/20/2020 15:57:18 Imaging Results None recorded. Procedure Notes None recorded. Medical Equipment None Reported. Allergies Allergen ID Allergen Name Allergen Category Reaction Reaction Severity Criticality Documentation Date Start Date Code Code System Note Provider Name and Address Organization Details Recorded Time 118412 metoprolo l Not available Not available Not available Not available 01/24/2013 6918 RxNorm marito cardi a. Yeny Elizabeth NP [address] [place], [place] [address], [address], [facility] 3 11:47:43 293131 spironola ctone medicatio n dizziness Not available Not available 01/25/2016 9997 RxNorm Yeny Elizabeth NP [address] [place], [place] [address], [address], [facility] 6 16:15:07 41847 penicilli n G Not available itching Not available Not available 07/30/2009 7980 RxNorm insid e of skin Not Available [facility] 1 06:05:20 675380 bupropion Not available other Not available Not available 01/26/2017 31676 RxNorm nonst op Yeny kennedy NP [address] [place], [place] [address], [address], [facility] 7 16:46:02 05106 hydrochlo rothiazid e medicatio n other severe Not available 10/25/2011 5487 RxNorm ortho stasi s and synco pe Yeny Elizabeth NP [address] [place], [place] [address], [address], [facility] 2 18:26:45 58754 amlodipin e medicatio n other severe Not available 10/25/2011 99887 RxNorm ortho stasi s and synco pe Yeny Elizabeth NP [address] [place], [address], [facility] 2 18:26:45 97177 lisinopri l medicatio n cough Not available Not available 10/28/2011 63045 RxNorm Yeny Elizabeth NP [address] [place], [address], [facility] 2 11:17:27 09965 Diovan medicatio n other mild Not available 11/10/2011 14193 2 RxNorm diarr hea and insom caridad Yeny Elizabeth NP [address] [facility] [place], [address], [facility] 2 11:50:20 Medications Name Sig Start Date [...] Available Not Available No t Available Afluria 0530-2766 (PF) 45 mcg (15 mcg x 3)/0.5 mL intramusc ular syringe inject 0.5 millilit er intramus cularly active Not Available Not Available No t Available fluticaso ne 113 mcg-salme terol 14 mcg/actua tion breath activated powdr INHALE 1 PUFF BY MOUTH EVERY 12 HOURS active Not Available Not Available No t Available Afluria 8775-1808 (PF) 45 mcg(15 mcg x 3)/0.5 mL [...] Updated DateTime 01/01/2023 144/82 mm[Hg] Art Garza [address] [place] [address], [address], [facility] 01/01/2023 14:44:45 Date Recorded Body height Body mass index (BMI) Body weight Heart rate Systolic And Diastolic Provider Name and Address Organization Details Last Updated DateTime 01/01/2023 161.29 cm 20 kg/m2 90227.33 g 56 /min 142/82 mm[Hg] Gisselle Cid [facility] 01/01/2023 13:45:40 Date Recorded Systolic And Diastolic Provider Name and Address Organization Details Last Updated DateTime 01/28/2023 121/81 mm[Hg] Art Garza [address] [place] [address], [address], [facility] 02/06/2023 16:28:51 Date Recorded Body height Body mass index (BMI) Body weight Heart rate Systolic And Diastolic Provider Name and Address Organization Details Last Updated DateTime 02/05/2024 161.29 cm 20.3 kg/m2 16612.11 g 52 /min 128/78 mm[Hg] Minerva Soto CMA [facility] 02/05/2024 13:56:26 Date Recorded Heart rate Systolic And Diastolic Provider Name and Address Organization Details Last Updated DateTime 05/01/2023 52 /min 131/86 mm[Hg] Jaida Rosenord [facility] 05/01/2023 14:27:03 Date Recorded Body height Body mass index (BMI) Body weight Heart rate Systolic And Diastolic Provider Name and Address Organization Details Last Updated DateTime 05/05/2024 160.02 cm 19.2 kg/m2 53887.41 g 49 /min 121/65 mm[Hg] Rosa Tran LPN [facility] 05/05/2024 08:51:37 Date Recorded Body height Heart rate Systolic And Diastolic Provider Name and Address Organization Details Last Updated DateTime 05/18/2023 161.29 cm 50 /min 164/76 mm[Hg] Jaimee Lowe RN BSN [facility] 05/18/2023 11:57:49 Date Recorded Systolic And Diastolic Systolic And Diastolic Provider Name and Address Organization Details Last Updated DateTime 05/21/2023 148/84 mm[Hg] 160/97 mm[Hg] Rayna Stapleton [facility] 05/22/2023 15:52:51 Date Recorded Systolic And Diastolic Systolic And Diastolic Provider Name and Address Organization Details Last Updated DateTime 05/22/2023 152/90 mm[Hg] 171/87 mm[Hg] Rayna Stapleton [facility] 05/22/2023 15:53:30 Date Recorded Body height Body mass index (BMI) Body weight Heart rate Systolic And Diastolic Provider Name and Address Organization Details Last Updated DateTime 06/23/2024 160.02 cm 19.6 kg/m2 00730.03 g 56 /min 136/74 mm[Hg] Rosa Tran LPN [facility] 06/23/2024 13:55:04 Date Recorded Body height Provider Name an d Address Organization Details Last Updated DateTime 06/29/2023 161.29 cm Rayna Stapleton [facility] 06/29/2023 09:58:50 Date Recorded Systolic And Diastolic Provider Name and Address Organization Details Last Updated DateTime 07/27/2023 117/78 mm[Hg] Radha Saini [facility] 07/27/2023 14:36:24 Social History Question Answer Notes LastModified by Organizat ion Details LastModified Time Tobacco Smoking Status Current Some Day Smoker PT currently smoking occasionally ALISSA Mulligan [facility] 04/03/2022 09:45:37 Do You Wear A [...] Did You Quit Smoking? 6-10yearssi [email or web address] rette [email or web address] Information not available 06/05/2021 How Many Days [...] Many Years Have You Smoked Tobacco? 41 [email or web address] Information not available 06/05/2021 Sex: Unknown Functional [...] intradermal, preservative free 1 completed Not Available [facility] 08/27/2019 02:34:20 Td(adult) unspecified formulation 6 completed Not Available [facility] 09/26/2023 00:24:31 influenza, unspecified formulation 7 completed Not Available [facility] 09/26/2023 00:24:31 Influenza, split virus, trivalent, preservative 2 completed Not Available [facility] 08/27/2019 02:32:24 Tdap 3 completed Not Available [facility] 08/27/2019 02:28:48 Novel [id number] completed Not Available [facility] 08/27/2019 02:27:45 Influenza, split virus, trivalent, PF 3 completed Not Available [facility] 08/27/2019 02:18:58 Influenza, split virus, quadrivalent, PF 5 completed Not Available [facility] 08/27/2019 02:19:46 zoster live 5 completed Not Available [facility] 08/27/2019 02:19:45 influenza, unspecified formulation 6 completed Not Available [facility] 09/26/2023 00:24:31 influenza, unspecified formulation 7 completed Not Available [facility] 09/26/2023 00:24:31 Influenza, high-dose, quadrivalent, PF 0 completed Janee Bai LPN null, [facility] 05/28/2020 08:46:57 pneumococcal polysaccharide PPV23 0 completed BLANCA DOYLE NP [address] [place] [address], [address], [facility] 06/20/2020 15:02:02 Influenza, split virus, trivalent, preservative 0 completed Not Available [facility] 08/27/2019 02:17:47 COVID-19, mRNA, LNP-S, PF, 30 mcg/0.3 mL dose 1 completed Not Available [facility] 09/26/2023 00:24:30 COVID-19, mRNA, LNP-S, PF, 30 mcg/0.3 mL dose 1 completed Not Available [facility] 09/26/2023 00:24:30 Td (adult), 2 Lf tetanus toxoid, preservative free, adsorbed 3 completed CATHERINE Garza [address] [place] [address], [address], [facility] 01/02/2023 07:56:47 Influenza, high-dose, quadrivalent, PF 1 completed Not Available [facility] 09/26/2023 00:24:30 COVID-19, mRNA, LNP-S, PF, 30 mcg/0.3 mL dose 1 completed Not Available [facility] 09/26/2023 00:24:31 COVID-19, mRNA, LNP-S, PF, 30 mcg/0.3 mL dose 2 completed Not Available [facility] 09/26/2023 00:24:31 zoster recombinant 2 completed Not Available [facility] 09/26/2023 00:24:30 Influenza, split virus, quadrivalent, preservative 2 completed Not Available [facility] 09/26/2023 00:24:30 Past Encounters Encounter ID Performer Location Encounter Start Date Encounter Closed Date Diagnosis/Indication Diagnosis SNOMED-CT Code Diagnosis ICD10 Code Diagnosis Note [id number] Tavon Machado. , [facility], OFFICE [address] [place] [address] 10/06/2002 15:52:18 08/30/2008 02:02:29 [id number] [facility] , [address] [address] 10/06/2002 00:00:00 08/30/2008 02:02:29 [id number] [facility] , [address] [address] 10/06/2002 16:36:55 08/30/2008 02:02:29 [id number] [facility] - [address] [address] 10/07/2002 15:46:52 08/30/2008 02:02:29 [id number] [facility] - [facility] [address] [place] [address] 11/08/2002 16:26:26 08/30/2008 02:02:29 [id number] Tavon Machado [facility], OFFICE [address] [place] [address] 11/08/2002 15:17:41 08/30/2008 02:02:29 [id number] Tavon Machado [facility], OFFICE [address] [place] [address] 12/08/2002 15:25:39 08/30/2008 02:02:29 [id number] [facility] - [facility] [address] [place] [address] 12/08/2002 15:51:11 08/30/2008 02:02:29 [id number] [facility] Y [facility] , [address] [address] 12/20/2002 14:48:00 08/30/2008 02:02:29 [id number] [facility] Y [facility] , [address] [address] 12/20/2002 00:00:00 08/30/2008 02:02:29 [id number] Tavon Machado [facility], OFFICE [address] [place] [address] 03/06/2003 10:13:04 08/30/2008 02:02:29 [id number] Tavon Machado [facility], OFFICE [address] [place] [address] 11/22/2003 12:59:27 11/22/2003 14:55:43 [id number] [facility] , [facility] [address] [place] [address] 12/26/2003 15:20:58 08/30/2008 02:02:29 [id number] [facility] , [facility] [address] [place] [address] 12/26/2003 00:00:00 08/30/2008 02:02:29 [id number] Tavon Mcahado [facility], OFFICE [address] [place] [address] 01/19/2004 14:11:55 01/19/2004 15:54:03 [id number] ASP, TERRELL FISH MD ASP, [facility] [address] [place] [address] 03/27/2004 10:47:20 03/28/2004 09:21:52 [id number] [facility] - [facility] [address] [place] [address] 10/15/2004 14:29:29 10/15/2004 14:29:57 [id number] Tavon Machado. VICK, [facility], OFFICE [address] [place] [address] 12/11/2004 15:06:41 12/11/2004 17:50:16 [id number] [facility] RADIOLOGY [facility]olog[facility] , [address] [address] 12/11/2004 16:00:54 12/12/2004 08:22:27 [id number] [facility] RADIOLOGY [facility] , [address] [address] 12/11/2004 00:00:00 08/30/2008 02:02:29 [id number] [facility] Radiology , [address] [address] 01/02/2005 14:50:32 08/30/2008 02:02:29 [id number] [facility] , [address] [address] 01/02/2005 00:00:00 08/30/2008 02:02:29 [id number] Tavon Machado. , [facility], OFFICE [address] [place] [address] 05/13/2005 14:40:24 08/30/2008 02:02:29 [id number] [facility] RADIOLOGY [facility] , [address] [address] 05/13/2005 15:36:22 08/30/2008 02:02:29 [id number] [facility] RADIOLOGY [facility] , [address] [address] 05/13/2005 00:00:00 08/30/2008 02:02:29 [id number] Angelo Mcwilliams , PT Physical Therapy, [address] [address] 05/26/2005 12:56:12 08/30/2008 02:02:29 [id number] Angelo Mcwilliams , PT Physical Therapy, [address] [address] 06/11/2005 15:17:06 08/30/2008 02:02:29 [id number] Tavon Machado , [facility], OFFICE [address] [place] [address] 12/24/2005 15:41:01 12/25/2005 08:44:40 [id number] Tavon Machado [facility], OFFICE [address] [place] [address] 12/24/2005 15:41:01 12/25/2005 08:44:40 [id number] [facility] , [address] [address] 01/15/2006 14:31:58 01/16/2006 09:26:07 [id number] [facility] , [address] [address] 01/15/2006 00:00:00 08/30/2008 02:02:29 [id number] Tavon Machado [facility], OFFICE [address] [place] [address] 04/22/2006 15:44:51 04/23/2006 08:28:48 [id number] [facility] - [address] [address] 04/22/2006 16:15:54 04/22/2006 16:16:11 [id number] Tavon Machado [facility], OFFICE [address] [place] [address] 04/30/2006 15:02:17 05/01/2006 08:35:41 [id number] [facility] , [address] [address] 05/31/2007 14:16:16 06/01/2007 09:45:04 [id number] [facility] , [address] [address] 05/31/2007 00:00:00 08/30/2008 02:02:29 [id number] Tavon Machado , [facility], OFFICE [address] [place] [address] 06/01/2007 15:54:13 08/30/2008 02:02:29 [id number] TREATMENT NURSE [facility], [facility], OFFICE [address] [place] [address] 07/06/2007 15:59:53 08/30/2008 02:02:29 [id number] [facility] Radiology , [facility] [address] [place] [address] 07/06/2007 15:26:24 07/07/2007 09:44:25 [id number] [facility] , [address] [address] 07/06/2007 00:00:00 08/30/2008 02:02:29 [id number] [facility] CRM ARCHITECT Radiology , [address] [address] 07/06/2007 17:40:10 07/07/2007 09:44:33 [id number] [facility] CRM ARCHITECT Radiology , [address] [address] 07/06/2007 00:00:00 08/30/2008 02:02:29 [id number] Tavon Machado , [facility], OFFICE [address] [place] [address] 12/20/2007 09:22:27 08/30/2008 02:02:29 [id number] [facility] - [address] [address] 12/20/2007 09:59:25 12/20/2007 09:59:40 [id number] [facility] Radiology , [address] [address] 06/24/2008 11:14:13 06/26/2008 09:15:42 [id number] [facility] - [address] [address] 07/24/2008 12:24:22 07/24/2008 12:24:31 [id number] Tavon Machado, [facility], OFFICE [address] [place] [address] 07/24/2008 11:11:08 08/30/2008 02:02:29 [id number] [facility] Radiology , [facility] [address] [place] [address] 07/30/2009 12:03:57 07/31/2009 14:41:39 [id number] ANITRA Paz, [facility], OFFICE [address] [place] [address] 07/30/2009 12:53:39 08/01/2009 09:41:41 [id number] ANITRA Paz, [facility], OFFICE [address] [place] [address] 09/03/2009 10:36:11 09/05/2009 09:01:25 [id number] ANITRA Montalvo, [facility], OFFICE [address] [place] [address] 02/18/2010 16:06:54 02/21/2010 11:14:25 [id number] ANITRA Montalvo, [facility], OFFICE [address] [place] [address] 03/04/2010 10:51:19 03/05/2010 09:13:07 [id number] ANITRA Montalvo, [facility], OFFICE [address] [place] [address] 04/08/2010 10:49:52 04/10/2010 12:33:40 [id number] ANITRA Montalvo, [facility], OFFICE [address] [place] [address] 05/06/2010 11:06:59 05/09/2010 08:14:35 [id number] ANITRA Montalvo, [facility], OFFICE [address] [place] [address] 09/04/2010 10:12:54 09/09/2010 09:54:47 [id number] [facility] Radiology , [facility] [address] [place] [address] 09/04/2010 11:35:48 09/05/2010 13:47:30 [id number] ANITRA Guidry, [facility], OFFICE [address] [place] [address] 6 02/17/2011 15:12:45 02/17/2011 16:18:23 [id number] ANITRA Guidry, [facility], OFFICE [address] [place] [address] 03/03/2011 11:25:18 03/03/2011 12:35:48 [id number] Yeny Elizabeth NP FP, [facility], OFFICE [address] [place] [address] 05/05/2011 11:10:16 05/05/2011 12:18:53 [id number] Yeny Elizabeth NP FP, C, OFFICE [address] [place] [address] 06/16/2011 11:24:27 06/16/2011 12:27:11 [id number] Yeny Elizabeth NP FP, [facility], OFFICE [address] [place] [address] 09/12/2011 11:49:49 09/12/2011 12:53:46 [id number] Yeny Elizabeth NP FP, C, OFFICE [address] [facility] [place] [address] 09/15/2011 10:11:06 09/15/2011 11:20:27 [id number] [facility] MAMMO TECH Radiology , [facility] [address] [facility] [place] [address] 09/15/2011 11:18:59 09/22/2011 11:25:46 [id number] [facility] CRM ARCHITECT Radiology , [facility] [address] [facility] [place] [address] 09/15/2011 11:22:42 09/22/2011 11:26:39 [id number] [facility] CRM ARCHITECT Radiology , [facility] [address] [facility] [place] [address] 09/15/2011 13:02:14 09/22/2011 11:27:06 [id number] Yeny Elizabeth NP FP, [facility], OFFICE [address] [place] [address] 6 09/19/2011 16:05:15 09/19/2011 17:14:17 [id number] Yeny Elizabeth NP FP, C, OFFICE [address] [place] [address] 10/16/2011 11:04:47 10/16/2011 12:36:29 [id number] Yeny Elizabeth NP FP, [facility], OFF[address] [facility] [place] [address] 10/23/2011 10:47:33 10/23/2011 11:31:44 [id number] Yeny Elizabeth NP , [facility], OFFICE [address] [facility] [place] [address] 10/28/2011 10:53:53 10/28/2011 11:41:32 [id number] Toby [place] MD , [facility], OFFICE [address] [facility] [place] [address] 11/10/2011 11:00:59 11/10/2011 12:05:22 [id number] Boo Christine MD , [facility], OFFICE [address] [facility] [place] [address] 12/22/2011 11:30:06 12/22/2011 12:11:38 [id number] Balbir Cruz MD Radiology , [facility] [address] [facility] [place] [address] 05/03/2012 11:01:39 05/04/2012 10:48:40 [id number] Boo Christine MD , [facility], OFFICE [address] [facility] [place] [address] 05/11/2012 11:43:11 05/11/2012 12:45:41 [id number] [facility] FLU CLINIC , [facility], OFFICE [address] [facility] [place] [address] 05/13/2012 06:44:42 05/13/2012 16:24:11 [id number] Yeny Elizabeth NP , [facility], OFFICE [address] [facility] [place] [address] 10/11/2012 14:33:17 10/11/2012 17:18:16 [id number] Antonio Urbano MD Radiology , [facility] [address] [facility] [place] [address] 10/18/2012 11:02:02 10/19/2012 10:11:53 [id number] eYny Elizabeth NP FP, [facility], OFFICE [address] [facility] [place] [address] 11/29/2012 11:09:20 11/29/2012 12:09:21 [id number] Yeny Elizabeth NP FP, [facility], OFFICE [address] [place] [address] 12/27/2012 11:13:39 12/27/2012 12:12:31 [id number] Yeny Elizabeth NP FP, [facility], OFFICE [address] [place] [address] 6 01/24/2013 10:58:06 01/24/2013 11:59:15 [id number] Yeny Elizabeth NP , [facility], OFFICE [address] [place] [address] 6 05/02/2013 10:58:25 05/02/2013 12:23:22 Acute bronchitis 30416535 Pain of joint 23381922 Influenza vaccine needed 5199932981 [id number] Boo Christine MD , [facility], OFFICE [address] [place] [address] 6 12/26/2013 15:36:32 12/26/2013 16:51:55 Adult health examination [id number] see Risk Assessment and Lifestyle Change Counseling section above Allergic rhinitis 79476808 Backache 536975388 Sinusitis 38159464 Screening for malignant neoplasm of cervix 838931618 Thyroid nodule 864028991 [id number] Boo Christine MD , [facility], OFFICE [address] [place] [address] 6 01/22/2015 13:40:10 01/22/2015 14:50:12 Adult health examination 026524485 see Risk Assessment and Lifestyle Change Counseling section above Benign ess ential hypertension 9098993 Blood pressure at goal Backache 172854264 Major depr ession, melancholic type 801987687 Gastroesop hageal reflux disease 415478677 Sleep apnea 14663031 [id number] Boo Christine MD , [facility], OFFICE [address] [place] [address] 6 04/10/2015 11:01:34 04/10/2015 12:19:45 Lifestyle 533902823 Benign ess ential hypertension 7652929 Blood pressure at goal Backache 376433319 Varicella vaccination 14547075 Influenza vaccine needed 9752340265 [id number] Boo Christine MD FP, [facility], OFFICE [address] [place] [address] 6 04/27/2015 11:53:26 04/27/2015 12:51:23 Backache 391845377 Benign ess ential hypertension 3121592 Blood pressure at goal Will be getting another 24hr monitor by nephrologi st due to labile BP, difficult to control [id number] Yeny Elizabeth NP FP, [facility], OFFICE [address] [place] [address] 6 06/04/2015 11:08:23 06/04/2015 14:55:19 Tuberculosis screening 811180125 Z11.1 [id number] Yeny Elizabeth NP FP, [facility], OFFICE [address] [place] [address] 6 06/18/2015 11:15:27 06/18/2015 13:05:30 Tuberculosis screening 113383376 Z11.1 [id number] Yeny Elizabeth NP FP, [facility], OFFICE [address] [place] [address] 6 07/26/2015 11:30:59 07/26/2015 12:23:47 Benign essential hypertension 7556552 I10 Blood pressure NOT at goal. [id number] MD VICK Cardenas, [facility], OFFICE [address] [place] [address] 6 01/25/2016 15:49:01 01/29/2016 10:59:33 Adult health examination 780170179 Z00.00 see Risk Assessment and Lifestyle Change Counseling section above Benign ess ential hypertension 1899856 I10 Blood pressure NOT at goal. Mixed hyperlipidemia 267 065680 E78.2 [id number] MD VICK Cardenas, C, OFFICE [address] [place] [address] 6 02/29/2016 09:37:18 02/29/2016 10:27:55 Hand pain 28447561 M79.642 Benign ess ential hypertension 3414268 I10 Blood pressure NOT at goal. [id number] MD VICK Cardenas, [facility], OFFICE [address] [place] [address] 6 07/28/2016 14:23:55 07/28/2016 15:14:02 Benign essential hypertension 1739959 I10 Blood pressure NOT at goal despite 3 agents. Can't tolerate spironolac tone. Mixed hyperlipidemia 267 664224 E78.2 Acute uppe r respiratory infection 56541262 J06.9 [id number] Boo Christine MD , [facility], OFFICE [address] [place] [address] 6 01/26/2017 15:38:43 01/26/2017 17:01:04 Adult health examination 317675687 Z00.00 see Risk Assessment and Lifestyle Change Counseling section above Benign ess ential hypertension 4639202 I10 Blood pressure at goal. Backache 778578490 M54.9 [id number] Boo Christine MD , [facility], OFFICE [address] [place] [address] 6 05/19/2017 15:23:45 05/19/2017 16:05:28 Cough 45317552 R05 Benign ess ential hypertension 1674150 I10 Blood pressure not at goal. [id number] Boo Christine MD , [facility], OFFICE [address] [place] [address] 6 06/26/2017 07:49:26 06/26/2017 08:38:01 Benign essential hypertension 1045640 I10 Blood pressure at goal [id number] Boo Christine MD , [facility], OFFICE [address] [place] [phone] 6 02/16/2018 15:32:13 02/16/2018 16:54:41 Adult health examination 354734750 Z00.00 see Risk Assessment and Lifestyle Change Counseling section above Depression screening 171 559653 Z13.89 depression screening tool administer ed, entered into emr, scored and discussed, time greater than 7.5 minutes Benign ess ential hypertension 1511375 I10 Blood pressure at goal Cough 46912365 R05 Using ProAir occasional ly Screening for malignant neoplasm of colon 066305943 Z12.11 Referral for a DIRECT booked colonoscop y. This patient is a healthy ASA Class 1 or 2 patient (only mild systemic disease), or a STABLE, well controlled insulin dependent diabetic. They do not have serious cardiac disease ie TN/angiopl asty within 1 year, symptomati c CHF; renal failure with CKD 4 or 5; take Coumadin, Plavix, Aggrenox, etc. Sleep apnea 38233504 G47 .30 Please get back to me with name of Cpap provider, will update orders so you can use it again. Impaired f asting glycemia 994380752 R73.01 Blood sugar today 84, continue to monitor [id number] Boo Christine MD , [facility], OFFICE [address] [place] [address] 6 09/14/2018 17:17:47 09/16/2018 11:01:46 Mixed hyperlipidemia 857044591 E78.2 Benign ess ential hypertension 9457381 I10 Blood pressure at goal Cough 94137882 R05 Using ProAir occasional ly Backache 743518083 M54.9 Wheezing 24955237 R06.2 Normal grief reaction 27 4950824 F43.20 [id number] Boo Christine MD , [facility], OFFICE [address] [place] [address] 6 10/05/2018 15:20:09 10/05/2018 16:27:59 Benign essential hypertension 1401496 I10 Thyroid nodule 898791221 E04.1 Cough 41084942 R05 [id number] Boo Christine MD , [facility], OFFICE [address] [place] [phone] 6 11/02/2018 16:39:52 11/03/2018 09:00:16 Benign essential hypertension 9256883 I10 [id number] Walter López MD , [facility], OFFICE [address] [place] [address] 6 11/25/2019 13:48:50 11/28/2019 14:47:15 Urinary tract infectious disease 23049349 N39.0 Patient instructed to push fluids, to follow up for persistent or worsening symptoms or fever or back pain.Treat for presumptiv e infection w/ bactrim.Co nsider musculoske latal vs stone. If no improvemen t will need imaging and cultures. [id number] Walter López MD , [facility], OFFICE [address] [place] [address] 6 11/30/2019 15:08:40 12/02/2019 13:07:04 Low back pain 232920024 M54.5 Nausea 310380932 R11.0 Night sweats 81179207 R6 1 [id number] Boo Christine MD , [facility], OFFICE [address] [place] [phone] 6 05/25/2020 16:15:13 05/28/2020 13:23:56 Active or passive immunization 978841655 Z23 [id number] BLANCA DOYLE NP , [facility], OFFICE [address] [place] [address] 6 06/20/2020 09:51:52 06/22/2020 12:18:11 Abdominal pain 35121238 R10.9 New concern, unclear if all symptoms related to same cause, ? cystitis and/or kidney stones given lower abdominal pain with radiation to groin with back pain, POCT urine with trace leuks only, plan to send for culture. Mass palpated in periumbili laney area ? hernia, plan to obtain CT of abdomen and pelvis to further assess all concerns. Screening mammography 24 398002 Z12.31 Routine screening due, patient agreeable, would like to schedule with [facility] aware of wait time. Active or passive immunization 829415125 Z23 Depression screening 171 783001 Z13.31 - depression screening tool administer ed, entered into emr, scored and discussed, time greater than 7.5 minutes-Co ntinue sertraline [id number] Boo Christine MD , [facility], OFFICE [address] [place] [address] 6 07/03/2020 15:32:37 07/04/2020 18:49:34 Essential hypertension 69798903 I10 Major depr ession, melancholic type 726800680 F32.9 Multiple n odules of lung 451047883 R91.8 Liver mass 252272349 R16 .0 [id number] Boo Christine MD , [facility], OFFICE [address] [place] [address] 6 08/21/2020 11:04:42 08/21/2020 14:03:59 Essential hypertension 58580894 I10 Vitamin D deficiency 347 35936 E55.9 Thyroid nodule 970721629 E04.1 Multiple n odules of lung 791496411 R91.8 diffuse, bilateral Tremor 63202902 R25.1 L hand 4th & 5th fingers. [id number] Boo Christine MD , [facility], OFF[address] [place] [address] 10/23/2020 09:00:28 10/24/2020 16:08:20 Essential hypertension 54531797 I10 Mixed hyperlipidemia 267 966617 E78.2 Major depr ession, melancholic type 730895596 F32.9 sertraline 200mg daily. Multiple n odules of lung 049303248 R91.8 diffuse, bilateral Vitamin D deficiency 347 34427 E55.9 [id number] Boo Christine MD , [facility], [address] [place] [address] 12/06/2020 11:27:07 12/07/2020 09:46:33 Essential hypertension 69425866 I10 Mixed hyperlipidemia 267 623625 E78.2 Chronic ob structive pulmonary disease 44893824 J44.9 Adult heal th examination 284037513 Z00.00 see Risk Assessment and Lifestyle Change Counseling section above Counseling 825152804 Z71 .9 including cardiovasc ular risk reduction counseling Depression screening 171 298708 Z13.31 depression screening tool administer ed, entered into emr, scored and discussed, time greater than 7.5 minutes. Screening reviewed with pt. treated for depression with sertraline . Screening for alcohol abuse 308612731 Z13.39 [id number] Everardo Vazquez MD Endocrino logy, [facility] [address] [place] [address] 12/20/2020 15:28:49 12/21/2020 06:31:01 Thyroid nodule 507455857 E04.1 Right nodule. Cytology from [facility] reports benign . This [...] genetic analysis. Multiple n odules of lung 321269935 R91.8 Adds to complexity . Concern about whether we can definitive ly link lung nodules to a known primary. Chronic ob structive pulmonary disease 67442658 J44.9 Clinically . Recent PFTs (08/30) c/w emphysema or interstiti al lung disease. Vitamin D deficiency 347 77993 E55.9 Level of 13 (07/29). Given 50K weekly x 1 month. No f/u orders placed. [id number] Everardo Vazquez MD Endocrino logy, [address] [address] 12/27/2020 12:55:55 12/28/2020 06:32:34 [id number] Everardo Vazquez MD Endocrino logy, [address] [address] 01/03/2021 14:30:30 01/08/2021 13:15:42 Thyroid nodule 401786609 E04.1 Right nodule. Cytology: [place] IV: Suspicious for Follicular Neoplasm. Genomic sequencing family support specialist pending. Also expression atlas pending. Reviewed ramificati [...] these options are consistent with cytology from [facility] which reported results as benign . While thyroid CA can metastasiz e to lung, one would typically expect to see adenopathy . She has not had significan t apparent adenopathy on exam. Have discussed case with Pulmonary. Genetic sequencing and expression atlas pending. Multiple n odules of lung 980960571 R91.8 Adds to complexity . Concern about whether we can definitive ly link lung nodules to a known primary. Chronic ob structive pulmonary disease 39886826 J44.9 Clinically . Recent PFTs (08/30) c/w emphysema or interstiti al lung disease. Vitamin D deficiency 347 27006 E55.9 Level of 13 (07/29). Given 50K weekly x 1 month. No f/u orders placed. 12/28: suggest get vit D level checked. [id number] Boo Christine MD , [facility], OFF[address] [place] [address] 06/05/2021 10:44:10 06/05/2021 11:39:08 Essential hypertension 07646780 I10 Chronic ob structive pulmonary disease 50083302 J44.9 Cigarette smoker 8613726 7 F17.210 Tobacco user 458418433 Z 72.0 Screening for osteoporosis 344387070 Z13.820 Low back pain 682114651 M54.50 Multiple n odules of lung 400202655 R91.8 diffuse, bilateral Thyroid nodule 274610539 E04.1 Benign ess ential hypertension 1005225 I10 [id number] GLENROY MARTI MD , [facility], OFF[address] [place] [address] 07/08/2021 11:51:46 07/16/2021 09:19:52 Spasm 62789057 R25.2 describes muscle jerking like spasmrecen t thyroidect yeni, r/o parathyroi d injury - check [place] magnesiumi f all normal, she wants to talk to dr. Vazquez at upcoming appt and ask if he thinks this is related somehow to her thyroid. I advised her to let me know if he states it isn't. 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 Should have TSH/free T4 checked (per d/c summary) and see Dr. Vazquez as scheduled. She will have labs today. [id number] Everardo Vazquez MD Endocrino logy, [address] [address] 07/18/2021 11:18:55 07/26/2021 06:28:00 Multiple nodules of lung 472807808 R91.8 Adds to complexity . Concern about whether we can definitive ly link lung nodules to a known primary. Chronic ob structive pulmonary disease 70091327 J44.9 Clinically . Recent PFTs (08/30) c/w emphysema or interstiti al lung disease.Di scussed this in relation to smoking and reasons to quit. Vitamin D deficiency 347 64547 E55.9 D= 36.4 (06/30); was 33 (01/28); was 13 (07/29). Had 50K weekly x 1 month.Take s 1-2 daily supplement (07/30). Cigarette smoker 2031577 7 F17.210 Since no clear evidence of metastatic disease, discussed risks/harm s of smoking. Tobacco user 214780627 Z 72.0 Sweating 940441085 R61 Some diarrhea afterwards . Check catechols and also 5hiaa. 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 Not on repalcemen t. check TFTs. [id number] GLENROY MARTI MD , [facility], OFFICE [address] [place] [address] 6 10/31/2021 13:22:38 11/11/2021 09:15:16 Pre-surgery evaluation 477544173 Z01.818 Summary: has low rahel-opera tive risk [...] prophylaxi s as per surgical protocol Backache 383337849 M54.9 rare use of tramadol - refill sent [id number] GLENROY MARTI MD , [facility], OFF[address] [place] [address] 12/23/2021 13:29:28 12/23/2021 14:49:50 Adult health examination 860101257 Z00.00 See risk assessment portion of HPI Counseling 116840624 Z71 .9 including cardiovasc ular risk reduction counseling Cardiovasc ular risk reduction was discussed including benefits and risks of aspirin, exercise goals, healthy eating and healthy weight . Discussion greater than 7.5 minutes. Depression screening 171 300691 Z13.31 depression screening tool administer ed, entered into emr, scored and discussed, time greater than 7.5 minutes Screening for alcohol abuse 177673348 Z13.39 An audit alcohol screening test was performed and scored. Patient was asked about alcohol use, advised about risks of alcohol, and personal risk was assessed, patient agreed to plan and given informatio n about available resources if needed. Discussion including screening and scoring less than 7.5 minutes Mixed hyperlipidemia 267 985211 E78.2 Cholestero l is at goal. LDL 65Continue to work on diet and exercise as discussed Essential hypertension 02049550 I10 Controlled . Continue current regimen. Pain of ri ght hip joint 5689006890 35148 M25.551 xrays r/o DJDES Tylenolhad been told not to take NSAIDs due to hypertensi on. Used to prefer Aleve. If pain is not controlled with Tylenol, will try Aleve (or prescripti on naproxen 500 mg) as needed - let me know. Major depr ession, melancholic type 812316911 F33.1 continue sertraline , follow up with therapist. Has been sensitive to other meds so would prefer to stay on same dose. I need a schedule, I need someplace to go. No thoughts of harming herself. Screening mammography 24 635271 Z12.31 Chronic ob structive pulmonary disease 76725301 J44.9 breathing OK - smoking 1 pk/weekCT showed Upper lobe predominan t centrilobu lar emphysema in 01/25/21 at [facility].uses Breo every other day or every 3 days. Legs get stiff when she uses this daily.No glaucoma Mass of axilla 655046106 R22.2 felt last but none now. ?lymph nodeNothin g palpable todayUS ordered [id number] Everardo Vazquez MD Endocrino logy, [facility] [address] [place] [address] 04/03/2022 09:31:23 04/03/2022 13:42:46 Sweating 301056060 R61 Has c/o diarrhea and intermitte nt sweats. Had normal catechols. 5hiaa was slightly high (issues with urine pH collection ). Not high enough to be suspicious for carcinoid. If sx persist, may need to repeat. Multiple n odules of lung 563764858 R91.8 Adds to complexity . Concern about whether we can definitive ly link lung nodules to a known primary. Chronic ob structive pulmonary disease 17028285 J44.9 Clinically . Recent PFTs (08/30) c/w emphysema or interstiti al lung disease.Di scussed this in relation to smoking and reasons to quit. Vitamin D deficiency 347 89217 E55.9 D= 47.5 (03/31); was 36.4 (06/30); was 33 (01/28); was 13 (07/29). Was taking 1-2 daily supplement but lately more prn. Cigarette smoker 8866787 7 F17.210 Since no clear evidence of metastatic disease, discussed risks/harm s of smoking. 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 Not on replacemen t. Check TFTs. [id number] Walter López MD , [facility], OFFICE [address] [place] [address] 05/16/2022 14:08:49 05/16/2022 14:58:54 Tobacco user 494528966 Z72.0 not discussed today, will discuss at f/usmoking occasional ly per chart review Active or passive immunization 575583409 Z23 pt already had flu vaccinerem inded about shingles vaccine Pain in right hand 38762 97118 61191 M79.641 s/p fall 2 weeks agorepeat hand/wrist xrays given recurrent edema and painok to continue compressio n brace, rest, ice in the interim Pleuritic pain 6290423 R 07.81 new as of last nightreass uring examencour aged to continue monitoring and call with any changes/wo rsening Pain of ri ght hip joint 5354562127 33675 M25.551 May xray reviewed - moderate degenerati ve changesPT and ortho referrals sentcall as needed Bone density finding [id number] M85.80 results 03/2022 reviewed - low bone massFRAX score reviewed: 10 y risk major risk 11%, hip 3.3%discus sed tx options, for now will optimize vitamin D, calcium, and weight-godwin ring and muscle-str engthening repeat scan 2 years Urgent rosalino alan to urinate [id number] R39.15 POC UA showing trace leuksnot enough urine for culture at appt, will have pt return for this Chronic ob structive pulmonary disease 37028387 J44.9 looking into new pulmonolog ist, has recs from Dr. Vazquez1x refill sent of Trelegy so she has it on hand in the interim Backache 112202280 M54.9 takes tramadol sparingly as needed for chronic back painlast fill 01/2022 per doug gastelum reassess at f/u [id number] Walter López MD , [facility], OFFICE [address] [facility] on [facility] [place] [address] 01/01/2023 13:14:36 01/01/2023 14:31:56 Adult health examination [id number] Z00.00 Depression screening 171 095630 Z13.31 depression screening tool administer ed. as below. Screening for alcohol abuse 961822150 Z13.39 Alcohol use screening tool administer ed. rec max 7 drinks/wee k. Essential hypertension 84675181 I10 consistent ly above goalincrea se nifedipine to 90mg daily (currently taking 60mg daily)f/u 1 month to reassess Mixed hyperlipidemia 267 217307 E78.2 Cholestero l is at goalContin ue to work on diet and exercise as discussed Screening mammography 24 463744 Z12.31 due Active or passive immunization 630772750 Z23 reminded about shingles vaccinetet anus vaccine will do Increased frequency of urination 528758629 R35.0 POC UA negative, unable to send for culture due to limited supplycall with any new/worsen ing symptoms Chronic ob structive pulmonary disease 49038576 J44.9 needs referral to new pulmonolog ist, she will get the name and let us know where she'd like to godoing well otherwise with current inhaler regimen Impaired f asting glycemia 917804794 R73.01 improving, recent A1C 5.2 Bone density finding 385 373933 M85.80 results 03/2022 reviewed - low bone massFRAX score reviewed: 10 y major risk 11%, hip 3.3%prefer s to continue to optimize vitamin D, calcium, and weight-godwin ring and muscle-str engthening repeat scan 2 years Major depr ession, melancholic type 974492027 F33.1 reports acute on chronic depression does virtual therapy which helpsalso continues on sertraline Tobacco user 141466554 Z 72.0 We discussed your smoking today for more than 3 minutes. Cigarette use is the leading cause of preventabl e disease, disability , and in the [place]. We talked about tools and medication s available to help you in smoking cessation. We discussed utilizing our smoking cessation women's basketball coach and online resources. Your personal goal: to quit! Multiple n odules of lung 352011303 R91.8 per problem list/forme r PCP CE - non-cancer ous. followed by Dr. Leavitt . 09/04/21 note - surveillan ce is complete. pt interested in low dose CT screening to use as f/u as well, as above. Candidiasis of mouth 797 78329 B37.0 will treat with darian per patient preference continue good oral hygiene after inhaler usecall if not resolving History of subtotal thyroidectomy 669894007 Z90.09 original concern for metastatic CA as multiple lung nodules, PET lit up mass in thyroid, now s/p subtotal thyroidect yeni, not on medication , following with Dr. Vazquez regularly History of partial resection of colon 039053120 Z90.49 pre cancerous polyp removal 2008, gets colonoscop ies q5 years [id number] Walter López MD , [facility], OFFICE [address] [place] [address] 05/18/2023 11:17:42 05/19/2023 14:44:12 [id number] JANEE SHIELDS MD , [facility], OFFICE [address] [place] [address] 02/05/2024 13:40:32 02/05/2024 17:40:33 Cough 06818429 R05.9 Essential hypertension 57858344 I10 Has been elevated in the past so will monitor closely. Reduce nifedipine to 60 mg daily. Continue losartan and labetolol. Mixed hyperlipidemia 267 096558 E78.2 She would like to try discontinu ing the statin. Agreed this is fine but we should recheck her cholestero l in a month. Lightheadedness 46537834 8 R42 Mostly with standing. I think [...] the beta fidel. Unintentio nal weight loss 989044269 R63.4 Thinks this was due to breaking her teeth, sore teeth. Advised her to continue to use her protein shakes. Will check some labs as above. Will need to monitor. Chronic ob structive pulmonary disease 81370212 J44.9 Continue inhalers and follow up with pulm. Refilled albuterol - see below. Abnormal gait 79256229 R 26.9 She does have a stiff and tentative gait. Unclear whether this is due to deconditio luisito, her concerns about falling or something neurologic al. Will re-evaluat e at next visit. 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 Not on replacemen t.Update TFTs since having sx. Chronic ob structive pulmonary disease 42883281 J44.9 Clinically . Recent PFTs (08/30) c/w emphysema or interstiti al lung disease.Di scussed this in relation to smoking and reasons to quit. Cigarette smoker 4495982 7 F17.210 Since no clear evidence of metastatic disease, discussed risks/harm s of smoking. Tobacco user 716210135 Z 72.0 counseling . Thyroid fu nction tests abnormal 407635521 R94.6 Not controlled . TSH= 2.3 (03/02) was 1.32 (01/31) ft4= 0.71 (03/02); was 0.7 (07/02) She is having multiple sx that might be c/w insufficie nt thyroid. Low T4 in setting of normal TSH is not c/w primary abnormalit y. Suggests possibilit y of secondary (pituitary ) issue.che k labs. Dizziness 511892867 R42 Not controlled Orthostati cs show now rise in HR with standing (drops systolic > 20 but not hypotensiv e).On labetalol- 150 bid (was 300 bid). decreased a year ago (?06/01?)c heck cortisol/a cth. If OK, may want to review use of labetalol vs. change to alternativ e. Osteopenia with high fracture risk 1196046799 43488 M85.80 BMD @ VMGL1-L4= -0.1 (05/01) .Femoral Neck= -1.9 (05/01)Left Total Hip= -1.5 (05/01)Risk s: thin, white, post-menop ausal and smoker. Has had wrist fx. Update with new baseline. [id number] Everardo Vazquez MD Endocrino logy, [facility] [address] [place] [address] 06/23/2024 13:35:00 06/27/2024 06:21:22 Thyroid function tests abnormal 554938147 R94.6 Not controlled . TSH=4.12 (06/02) was [...] related to thyroid. 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 Not on replacemen t.Update TFTs since TSH is slowly rising (although still WNL). Dizziness 403775803 R42 Not controlled Orthostati cs showed rise in HR with standing (drops systolic > 20 but not hypotensiv e).On labetalol- 150 bid (was 300 bid). decreased a year ago (?06/01?) Checked cortisol/a cth and those were OKMay want to review use of labetalol vs. change to alternativ e. Osteopenia with high fracture risk 5335624009 34481 M85.80 BMD @ VMGL1-L4= -0.1 (05/01) .Femoral Neck= -1.9 (05/01)Left Total Hip= -1.5 (05/01)Risk s: thin, white, post-menop ausal and smoker. Has had wrist fx. Recommend: - Update with new baseline in future.- Talk to PCP about physical therapy focus on exercises that don't make dizziness worse. Chronic ob structive pulmonary disease 09447219 J44.9 Clinically . Recent PFTs (08/30) c/w emphysema or interstiti al lung disease.Di scussed this in relation to smoking and reasons to quit. Cigarette smoker 5831950 7 F17.210 Since no clear evidence of metastatic disease, discussed risks/harm s of smoking. Tobacco user 887270768 Z 72.0 counseling . Health Concerns Section Related Observation LastModified by Organization Detai ls LastModified Time None Recorded Concern Status LastModified by Organization Details LastModified Time None Recorded Advance Directives Directive None Recorded Payers Insurance Date Sequence Insurance Name Policy Number Policy Coppola Covered Member ID Coppola Member ID Guarantor Name 06/23/2024 1 [facility] (MEDICARE REPLACEMENT/ADV ANTAGE - HMO) [id number] Linda Diehl [id number] Linda Diehl 08/01/2024 1 [facility] (MEDICARE REPLACEMENT/ADV ANTAGE - PPO) [id number] Linda Diehl [id number] Linda Diehl 12/17/2021 1 [facility]-CIG[employer] - [employer] - CIGNA (PPO) [id number] Linda Diehl [id number] Linda Diehl 12/17/2021 1 [facility]IG[facility] - CIGNA (PPO) [id number] Linda Diehl [id number] Linda Diehl 06/16/2024 1 [facility] (MEDICARE REPLACEMENT/ADV ANTAGE - PPO) [id number] Linda Diehl [id number] Linda Diehl 07/29/2024 PAYMENT PLAN Linda Diehl 12/17/2021 1 CIGNA [id number] Linda Diehl [id number] Linda Diehl 12/17/2021 1 [place] 2 (POS) [id number] Linda Diehl [id number] Linda Diehl 12/17/2021 1 [facility] - OPEN ACCESS PLUS (PPO) [id number] Linda Diehl [id number] Linda Diehl 12/17/2021 1 [place] [id number] Linda Diehl [id number] Linda Diehl 12/17/2021 1 [employer] - CHOICE POS II (HMO) [id number] Linda Diehl [id number] Linda Diehl 12/17/2021 1 [place]: [facility] [employer] - PERSONAL CHOICE (PPO) [id number] Linda Diehl [id number] Linda Diehl 12/17/2021 1 CIGNA (PPO) Linda Diehl [id number] Linda Diehl 12/17/2021 1 [employer] [facility]MEDICAID [facility] [id number] Linda Diehl [id number] Linda Diehl 12/17/2021 1 MEDICARE B-[place]: [facility] [employer] SERVICES Linda Diehl [id number] Linda Carlosnerissa 02/05/2024 2 [employer]ARP (MEDICARE SUPPLEMENT) Linda Diehl [id number] Linda Diehl Notes Date Note Type Note [...] Risk Assesment:Family History of Coronary Artery Disease(father [place] age 62);Does not participate in regular exercise [...] pressure; Has been difficult to control. 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 Has COPD - sees pulm, uses a daily inhaler and albuterol prn JANEE SHIELDS MD [address] [place] [address], [phone], [facility] 02/05/2024 16:07:07 4 text/html ThyroidReported bypatient.Previous Evaluation:TSH: [...] or evaluation until current issues came up.a/vmg-smoking [id number] bypatient.ImportanceOn a scale of 1-10 with 1 [...] better (but still high). 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 [...] suspicious. Had lobectomy (07/30) Bx done through [facility] Radiology: 2.2x1.7x2.9 (5 passes)- [...] compared to July 2020. Everardo Vazquez MD [address] [place] [address], [phone], [facility] 05/05/2024 12:57:58 4 text/html ThyroidReported bypatient.Previous Evaluation:Previous biopsy cytology ([place] IV: Suspicious for follicular neoplasm. Genomic [...] or evaluation until current issues came up.a/vmg-smoking [id number] bypatient.ImportanceOn a scale of 1-10 with 1 [...] better (but still high). 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 [...] suspicious. Had lobectomy (07/30) Bx done through [facility] Radiology: 2.2x1.7x2.9 (5 passes)- [...] compared to July 2020. Everardo Vazquez MD [address] [place] [address], [phone], [facility] 06/26/2024 18:32:05 OBGyn Episode No OBEpisode recorded.
== END ==
LOC: HO.CARD 14:36
PROVIDERS: PCP Nurse Practitioner Family; Visit Provider Internal Medicine Cardiovascular Disease
DX: Z01.810 Encounter for preprocedural cardiovascular examination (principal)
CPT/HCPCS: 93306

== ENCOUNTER → 2025-02-21 14:40 | Outpatient (BNV) | payer MEDICARE, MEDICAID, SELFPAY | PROVIDERS: PCP Nurse Practitioner Family; Visit Provider Internal Medicine | DX: I35.8 Other nonrheumatic aortic valve disorders (principal); I70.0 Atherosclerosis of aorta | CPT/HCPCS: 93306 ==

== ENCOUNTER 2025-03-31 15:03 | Outpatient (REF) | payer MEDICARE, MEDICAID, SELFPAY ==
--- OUTSIDE RECORDS SUMMARY | 2025-03-31 15:11 | XMS_ITS | Encounter Summary ---
Author Organization [facility] Address [address] [place] [address] Phone Care Team Providers Care Importer Or Exporter Name Role Phone Yeny Elizabeth NP Primary Care Provider [phone] Adolfo Andrea MD Unavailable Yenny Parish MD Unavailable Dian Macias Primary Care Provider [phone] Encounter Details Date Type Department Care Team (Late st Contact Info) Description 08/31/2020 Procedure Pass [facility], Ct Scan - [address] [address] Social History Tobacco Use Types Packs/Day Years Used Date Smoking Tobacco: Former Cigarettes Q uit: 2004 Smokeless Tobacco: Never Comments:on and off smoker s ping highschool Alcohol Use Standard Drinks/Week Comments Yes 0 (1 standard drink = 0.6 oz pur e alcohol) 3/10 drinks per week Comments No Sex and Gender Information Value Date Recorded Sex Assigned at Female 11/07/2020 11:41 AM EDT Legal Sex Female 9:58 PM EDT Gender Identity Female 11/07/2020 11:41 AM EDT Sexual Orientation Straight 11/07/2020 11 :41 AM EDT documented as of this encounter Plan of Treatment Not on file documented as of this encounter Visit Diagnoses Not on filedocumented in this encounter Care Teams Importer Or Exporter Relationship Specialty Start Date End Date Yeny Elizabeth NP [address] [place] [address] PCP - General Nurse Practitioner 06/04/18 07/07/22 Dian Macias PA [address] [place] [address] [email or web address] PCP - General 07/08/22 Adolfo Andrea MD [address] [place] [address] [email or web address] Primary Oncologist Hematology and Oncology 08/02/20 Yenny Parish MD [address] [place] [phone] [email or web address] Primary Oncologist Hematology and Oncology 05/09/21 documented as of this encounter Additional Source Comments The information contained in this document represents components of the legal health record. It is not the complete legal health record.[facility]
--- OUTSIDE RECORDS SUMMARY | 2025-03-31 15:11 | XMS_ITS | Clinical Summary ---
Author Organization [facility] Address [address] [place] [address] Care Team Providers Care Patrol Mother Name Role Phone MauraDaliaRosa M Duke APRN Primary Care Provider + Allergies No known active allergies Medications No known medications Encounters Date Type Department Care Team Description 03/31/2025 Orders Only [facility] [place] [address] [place] [address] Salvador Tarango MD Sensorineural hearing loss (SNHL), bilateral (Primary Dx) 03/15/2025 1:15 PM EDT Clinical Support [facility] [address] [address] Thao Barksdale Au.D Sensorineural hearing loss, bilateral (Primary Dx) 03/15/2025 1:00 PM EDT Office Visit [facility] [address] [address] Salvador Tarango MD Sensorineural hearing loss (SNHL), bilateral (Primary Dx); Parotid swelling; Semicircular canal dehiscence syndrome from Last 3 Months Social History Tobacco Use Types Packs/Day Years Used Date Smoking Tobacco: Never Assessed Comments Unknown Sex and Gender Information Value Date Recorded Sex Assigned at Not on file Legal Sex Female 1:08 PM EDT Gender Identity Not on file Sexual Orientation Not on file Plan of Treatment Upcoming Encounters Date Type Department Care Team ([facility] st Contact Info) Description 05/17/2025 1:45 PM EDT Office Visit [facility] [place] [address] [place] [address] Salvador Tarango MD [address] [phone] Health Maintenance Due Date Last Done Comments Hepatitis C Virus Screening 1953 DTaP/Tdap/Td Vaccines (1 - Tdap) 1972 Mammogram 1993 Colonoscopy 1998 Pneumococcal Vaccines 50+ (1 of 1 - PCV) 2003 Zoster (Shingles) Vaccine (1 of 2) 2003 DXA Bone Density (Females,Ages 65 and older) 2018 COVID-19 Vaccine ( - season) 2024 09/24/2020, 09/03/2020 Influenza Vaccine 03/10/2025 05/28/2020, , 06/18/2016, Additional history exists RSV Vaccine 60 years and older and Patients (1 - 1-dose 75+ series) 2028 Hepatitis B Vaccines Aged Out No long er eligible based on patient's age to complete this topic Procedures Procedure Name Priority Date/Time Associated Diagnosis Comments AUDIOMETRY Routine 03/15/2025 1:15 PM EDT Sensorineural hearing loss, bilateral AUDIOMETRY Routine 03/15/2025 1:15 PM EDT Sensorineural hearing loss, bilateral from Last 3 Months Results * Audiometry (03/15/2025 1:15 PM EDT) Narrative Thao Barksdale Au.D - 03/15/2025 1:15 PM EDT Tanya Carey 03/15/2025 1:38 PM Salvador Tarango MD AUDIOLOGY SERVICES ORDERABLES Final Result from Last [address] [facility] MEDICARE Care Teams Patrol Mother Relationship Specialty Start Date End Date Rosa M Mason APRN [address] [place] [phone] PCP - General Family Medicine 03/15/25
[2025-03-31 16:41] LABS: Estimated Glomerular Filt Rate > 60
== END 2025-03-31 15:04 | disposition home or self-care (01) ==
LOC: HO.LAB 15:03
PROVIDERS: PCP Nurse Practitioner Family; Visit Provider Otolaryngology
DX: H90.3 Sensorineural hearing loss, bilateral (principal)
CPT/HCPCS: 36415; 82565

== ENCOUNTER → 2025-04-25 09:47 | Outpatient (REF) | payer MEDICARE, MEDICAID, SELFPAY ==
--- NOTE | ~2025-04-25 | NM_ITS ---
Lexiscan Myocardial perfusion study Indication: Coronary artery disease Technique: The patient was brought in for a Lexiscan perfusion study on 04/25/2025 and was injected 0.4 mg of Lexiscan intravenously. Within a minute of this injection 25 mCi of sestamibi was given intravenously. Images were obtained using the SPECT gamma camera interlaced with the gating device. Images were obtained in supine position. Resting perfusion study was performed on 04/27/2025. Patient was administered 25 mCi of sestamibi intravenously at rest. Images were then obtained in supine position. Total DLP 65 mGy-cm. Images were processed with the software and compared side to side in short axis, horizontal long axis and vertical long axis views. Findings: Raw aquisition reviewed. The stress perfusion study showed no significant perfusion defects. Both uncorrected as well as CT attenuation corrected images were reviewed. The gated study shows normal LV systolic function with calculated LVEF of > 70%. LV cavity is normal in size. The gated study shows normal wall thickening and contraction of segments. Resting study shows no significant perfusion defects. Gating at rest reveals normal wall motion; visually normal ejection fraction. The findings are consistent with no reversible or fixed perfusion defects NM/NM ajay perf SPECT rest & str Impression: 1. Myocardial perfusion imaging study shows normal myocardial perfusion. 2. Gated LVEF is > 70% during stress.. 3. Transient ischemic dilatation not present. EKG component of the test reported separately. Electronically signed by: Aguilar Gaston MD 04/27/2025 04:09 PM EDT
--- NOTE | 2025-04-25 09:49 | CA_ITS ---
Acquisition Time: 2025-04-25 10:16:45 Total Exercise Time: 00:02:00 Test Indications: Screening for CAD,Palpitations,Abnormal ECG Medications: SEE H&P Protocol: LEXISCAN Max HR: 93 BPM 62% of Pred: 148 BPM Max BP: 152/80 mmHG Max Work Load: 1.0 METS Pharmacological stress test with Lexiscan while pt marches in her chair, with reports of SOB, palpitations and lightheadedness with HR in the mid 50s, with frequent PACs and PVCs, one vent couplet, with normotensive response to injection. Nondiagnostic EKG for ischemia. In recovery, pt continued moving her arms and legs to help with symptoms as well as her HR. Pt also treated with IVP Aminophylline 75 mg to reverse Lexiscan after which pt slowly improving back to baseline. Nuclear images pending. Test reviewed with Dr. Gaston. Referred By: Xu Mckenzie Electronically Signed By: Denis Hagen
--- OUTSIDE RECORDS SUMMARY | 2025-04-25 12:35 | XMS_ITS | Encounter Summary ---
Author Organization [facility] Address [address] [place] [address] Phone Care Team Providers Care Manager Of Housekeeping Name Role Phone Yeny Elizabeth NP Primary Care Provider [phone] Adolfo Andrea MD Unavailable Yenny Parish MD Unavailable Dian Macias Primary Care Provider [phone] Encounter Details Date Type Department Care Team (Late st Contact Info) Description 02/08/2021 Procedure Pass [facility], Ct Scan - [address] [phone] Social History Tobacco Use Types Packs/Day Years [...] on filedocumented in this encounter Care Teams Manager Of Housekeeping Relationship Specialty Start Date End Date Yeny Elizabeth NP [address] [place] [address] PCP - General Nurse Practitioner 06/04/18 07/07/22 Dian Macias PA [address] [place] [address] [email or web address] - General 07/08/22 Adolfo Andrea MD [address] [place] [address] [email or web address] Primary Oncologist Hematology and Oncology 08/02/20 Yenny Parish MD [address] [place] [phone] [email or web address] Primary Oncologist Hematology and Oncology 05/09/21 documented as of this encounter Additional Source Comments The information contained in this document represents components of the legal health record. It is not the complete legal health record.[facility]
--- OUTSIDE RECORDS SUMMARY | 2025-04-25 12:35 | XMS_ITS | Clinical Summary ---
Author Organization [facility] Address [address] [facility] [address] [place] [address] Phone Care Team Providers Care Drier Name Role Phone Yenny Parish MD Unavailable Dian Macias Primary Care Provider [phone] Allergies Active Allergy Reactions Criticality Noted Date Comments Amlodipine Other (See Comments) Medium 06/07/2018 syncope Bupropion Hbr Low 06/07/2018 Emotional - uncontrolled crying Valsartan Diarrhea Low 06/07/2018 Hydrochlorothiazide Other (See Comments) Medium 06/07/2018 syncope Lisinopril Cough Medium 06/07/2018 Metoprolol Succinate Other (See Comments) Medium 06/07/2018 bradycardia Penicillins Itching Medium 06/07/2018 Spironolactone Dizziness Medium 06/07/2018 Medications atorvastatin (LIPITOR) 20 MG tablet Take 20 mg by mouth daily. Active famotidine (PEPCID) 40 MG tablet Take 40 mg by mouth daily. Active labetalol (TRANDATE) 300 MG tablet Take 300 mg by mouth 2 (two) times a day. Active losartan (COZAAR) 100 MG tablet Take 100 mg by mouth daily. Active NIFEdipine (ADALAT CC) 30 MG 24 hr tablet Take 30 mg by mouth daily. Active sertraline (ZOLOFT) 100 MG tablet Take 100 mg by mouth daily. Active traMADol (ULTRAM) 50 mg tablet Take 50 mg by mouth every 6 (six) hours as needed for pain (specific location in comments). Active cholecalciferol (VITAMIN D3) 2,000 unit capsuleIndicati ons:Vitamin D deficiency Take 1 capsule (2,000 Units total) by mouth daily. Vitamin D2 of 50,000 unites PO weekly x 8, followed by Vitamin D3 of 2,000 units PO daily. 90 capsule 10 08/08/2020 Active fluticasone furoate-vilante roL (BREO ELLIPTA) 100-25 mcg/dose inhalerIndicati ons:Other emphysema Inhale 1 puff into the lungs daily. 180 each 3 09/19/2021 Active Active Problems Patient Care Coordination No te Formatting of this note migh t be different from the original. Height 160.2cm no shoes taken by OC 08/06/2020 Problem Noted Date Diagnosed Date Other emphysema 09/10/2020 Pulmonary nodules 09/04/2020 Encounter for screening for malignant neoplasm o f lung 09/04/2020 Immunizations Immunization Administration Dates Next Due COVID-19 (Pre-06/01) Pfizer Vaccine, mRNA, PF ,09/03/2020 INFLUENZA, SPLIT VIRUS, TRIVALENT PF 04/11/2017, 05/02/2013 INFLUENZA, SPLIT VIRUS, TRIVALENT W/ PRESERVATIV E IM 05/13/2012,05/06/2010 Influenza High-Dose Quadrivalent Preservative Fr ee IM 05/28/2020 Influenza Quadrivalent Preservative Free IM 08/2014 Influenza trivalent preservative free intraderma l 06/16/2011 Influenza, Unspecified Formulation 06/18/2016, Novel [id number], Injectable 07/30/2009 Pneumococcal polysaccharide PPSV23 06/20/2020 Td, unspecified formulation 12/24/2005 Tdap 10/11/2012 Zoster live 04/10/2015 Social History Tobacco Use Types Packs/Day Years Used Date Smoking Tobacco: Former Cigarettes Q uit: 2004 Smokeless Tobacco: Never Comments:on and off smoker s ping highschool Alcohol Use Standard Drinks/Week Comments Yes 0 (1 standard drink = 0.6 oz pur e alcohol) 3/10 drinks per week Education Answer Date Recorded Are you interested in more education? Not on guru e 12/05/2022 Are you concerned about learning? Not on file 12/05/2022 No 12/05/2022 No 12/05/2022 Digital Access Answer Date Recorded No 01/05/2023 No 01/05/2023 No 01/05/2023 Reliable internet access at home? Not on file 01/05/2023 Device with a working camera? Not on file Comments No Sex and Gender Information Value Date Recorded Sex Assigned at Female 11/07/2020 11:41 AM EDT Legal Sex Female 9:58 PM EDT Gender Identity Female 11/07/2020 11:41 AM EDT Sexual Orientation Straight 11/07/2020 11 :41 AM EDT Last Filed Vital Signs Vital Sign Reading Time Taken Comments Blood Pressure 120/70 09/04/2021 1:55 PM EST Pulse 55 09/04/2021 1:55 PM EST Temperature 36.9 C (98.4 F) 09/04/2021 1:55 PM EST Respiratory Rate 16 08/22/2020 9:24 AM EST Oxygen Saturation 94% 09/04/2021 1:55 PM EST Inhaled Oxygen Concentration - - Weight 58.5 kg (129 lb) 05/19/2022 12:05 PM EDT Height 160 cm (5' 3 ) 05/19/2022 12:05 PM EDT Body Mass Index 22.85 05/19/2022 12:05 PM EDT Plan of Treatment Health Maintenance Due Date Last Done Comments LIPID PANEL 1953 DEPRESSION SCREENING 1965 SMOKING Hx and SMOKELESS TOBACCO SCREENING 1966 HEPATITIS C SCREENING 1971 MAMMOGRAM 1993 COLOGUARD 1998 FIT TEST 1998 FOBT 1998 SIGMOIDOSCOPY 1998 VIRTUAL COLONOSCOPY 1998 RSV VACCINE (1 - Risk 60-74 years 1-dose series) 2013 OSTEOPOROSIS SCREENING INITIAL (ONE-TIME) 2018 PNEUMOCOCCAL VACCINES (50+ years) (2 of 2 - PCV) 06/20/2021 06/20/2020 CREATININE LEVEL 10/25/2021 10/25/2020, 08/06/2020 POTASSIUM LEVEL 10/25/2021 10/25/2020, 08/06/2020 Adult Td,Tdap Booster 10/11/2022 10/11/2012, 006 INFLUENZA VACCINE (#1) 2025 2, 05/24/2021, 05/28/2020, Additional history exists COVID-19 VACCINE ( season) 2025 05/07/2022, 12/02/2021, 05/24/2021, Additional history exists COLONOSCOPY 06/08/2028 06/08/2018 COLORECTAL CANCER SCREENING 06/08/2028 ZOSTER VACCINES Completed 12/02/2021, 09/10, 04/10/2015 HEPATITIS A VACCINES Aged Out No long er eligible based on patient's age to complete this topic HIB VACCINES Aged Out No longer eligi ble based on patient's age to complete this topic MENINGOCOCCAL VACCINES (ACWY) Aged Out No longer eligible based on patient's age to complete this topic MENINGOCOCCAL VACCINES (B) Aged Out N o longer eligible based on patient's age to complete this topic Medical Devices Not on file Procedures Procedure Name Priority Date/Time Associated Diagnosis Comments COMPREHENSIVE METABOLIC PANEL Routine 10/25/2020 2:09 PM EDT Lung nodules Adrenal nodule ENDOSCOPY, COLON 06/08/2018 10:0 8 AM EDT from Last 3 Months or Most Recently Relevant to Health Maintenance Results * (ABNORMAL) Comprehensive metabolic panel (10/25/2020 2:09 PM EDT) SODIUM 137 133 - 146 mmol/L [facility] POTASSIUM 4.0 3.3 - 5.1 mmol/L [facility] CHLORIDE 101 96 - 108 mmol/L [facility] CO2 25 21 - 35 mmol/L [facility] BUN 10 6 - 19 mg/dL [facility] CREATININE 0.60 0.5 - 1.5 mg/dL [facility] GLUCOSE 139(H) 70 - 99 mg/dL [facility] ALBUMIN 4.5 3.9 - 4.8 g/dL [facility] TOTAL PROTEIN 7.1 6.5 - 8.0 g/dL [facility] CALCIUM 9.8 8.4 - 10.3 mg/dL [facility] ALKALINE PHOSPHATASE 94 39 - 117 U/L [facility] TOTAL BILIRUBIN <0.2 0.0 - 1.2 mg/dL [facility] AST 12 0 - 37 U/L [facility] ALT 12 0 - 40 U/L [facility] GLOBULIN 2.6 1 - 4.8 g/dL [facility] EGFR 94 >59 mL/min/1.7 3m2 [facility] Comment:Estimated glomerular filtration rate calculated using the CKD-EPI equation. ANION GAP 15 10 - 20 mmol/L [facility] Blood 10/25/2020 2:09 PM EDT 10/25/2020 2:15 PM EDT us Adolfo Andrea MD LAB BLOOD ORDERABLES Final Resul t [facility] [address] [place] [address] * ENDOSCOPY, COLON (06/08/2018 10:08 AM EDT) Narrative Transcriptions Frank Corado MD - 06/08/2018 10:08 AM EDT Patient Name: Linda Diehl Attending MD:: FRANK CORADO MD Procedure Date: 06/08/2018 10:08AM Date of : 1955 Age: 63 Admit Type: Outpatient Gender: Female Room: [place] [address] Referring MD: WILL IGLESIAS Exam Type: Colonoscopy Indications: High risk colon cancer surveillance: Personal historyof colonic polyps Medications: Monitored Anesthesia Care Procedure: Informed consent was obtained from the patient after discussion of the indications, limitations,alternatives, benefits, and risks of the procedure. Risksspecifically discussed include but are not limited to medication reactions, missed lesions, bleeding, perforation, orthe need for emergent surgery. Throughout the procedure, the patient's blood pressure, pulse, end-tidal CO2, and oxygen saturations were monitored continuously. The Olympus adult variable colonoscope [id number] #2 was introduced through the anus and advanced to the ileocolonic anastomosis. The colonoscopy was performed without difficulty. The patient tolerated the procedure well. The quality of the bowel preparation was good. Complications: No immediate complications. Estimated blood loss:None. Findings: The perianal and digital rectal examinations werenormal. The rectum, recto-sigmoid colon, sigmoid colon,descending colon, splenic flexure, transverse colon, hepaticflexure, ascending colon and anastomosis appeared normal. Impression: - The rectum, recto-sigmoid colon, sigmoid colon, descending colon, splenic flexure, transverse colon, hepatic flexure, ascending colon and colonicanastomosis are normal. - No specimens collected. Recommendation: - Discharge patient to home. - Resume previous diet. - Continue present medications. - Repeat colonoscopy in 5 years for surveillance. FRANK CORADO MD 06/08/2018 10:24:19 AM This report has been signed electronically. Number of Addenda: 0 Note Initiated On: 06/08/2018 10:08 AM Procedure Code(s): --- Professional --- 28583, Colonoscopy, flexible; diagnostic, including collection of specimen(s) by brushing or washing, when performed (separateprocedure) --- Technical --- 79770, Colonoscopy, flexible; diagnostic, including collection of specimen(s) by brushing or washing, when performed (separateprocedure) Diagnosis Code(s): --- Professional --- Z86.010, Personal history of colonic polyps --- Technical --- Z86.010, Personal history of colonic polyps CPT copyright 2016 [employer]. All rights reserved. The codes documented in this report are preliminary and upon valve grinder reviewmay be revised to meet current compliance requirements. [address] [place] [address] Yeny Elizabeth NP GI PROCEDURE ORDERABLES Final Result from Last 3 Months or Most Recently Relevant to Health Maintenance Insurance MEDICARE SUPPLEMENT [facility] MEDICARE REPLACEMENT [facility] MEDICARE SUPPLEMENT [facility] MEDICARE [place] [address] [address] [place] [address] MEDICARE SUPPLEMENT [facility] MEDICARE REPLACEMENT MEDICARE SUPPLEMENT [facility] MEDICARE REPLACEMENT MEDICARE SUPPLEMENT [facility] MEDICARE REPLACEMENT MEDICARE SUPPLEMENT [facility] MEDICARE REPLACEMENT MEDICARE SUPPLEMENT [facility] MEDICARE [place] [address] [place] [address] MEDICARE SUPPLEMENT [facility] MEDICARE REPLACEMENT [facility] MEDICARE SUPPLEMENT [facility] MEDICARE REPLACEMENT Member Subscriber Plan / Payer (Ef fective 2021-Present) Name:ShanitaLinda Relation to Subscriber:Self Name:Shanita Linda Payer ID:[id number] (NAIC) Type:Medicare Address: [place] [id number] Care Teams Drier Relationship Specialty Start Date End Date Dian Macias PA [address] [place] [address] [email or web address] PCP - General 07/08/22 Yenny Parish MD [address] [place] [address] [email or web address] Primary Oncologist Hematology and Oncology 05/09/21 Additional Source Comments The information contained in this document represents components of the legal health record. It is not the complete legal health record.[facility]
--- OUTSIDE RECORDS SUMMARY | 2025-04-25 12:35 | XMS_ITS | Clinical Summary ---
Author Organization [facility] Address [address] [place] [address] Care Team Providers Care Tower Equipment Installer Name Role Phone MauraDaliaRosa M Duke APRN Primary Care Provider + Allergies No known active allergies Medications No known medications Encounters Date Type Department Care Team Description 03/31/2025 Orders Only [facility] [place] [address] [place] [address] Salvador Tarango MD Sensorineural hearing loss (SNHL), bilateral (Primary Dx) 03/15/2025 1:15 PM EDT Clinical Support [facility] [address] [address] Thao Barksdale Au.D Sensorineural hearing loss, bilateral (Primary Dx) 03/15/2025 1:00 PM EDT Office Visit [facility] [address] [address] Salvador Tarango MD Sensorineural hearing [...] Upcoming Encounters Date Type Department Care Team ([facility] st Contact Info) Description 05/17/2025 1:45 PM EDT Office Visit [facility] [place] [address] [facility], [place] [address] Salvador Tarango MD [address] [phone] Health Maintenance Due Date Last Done Comments Advance Care Planning 1955 Hepatitis C Virus Screening 1955 DTaP/Tdap/Td Vaccines (1 - Tdap) 1972 Mammogram 1993 Colonoscopy 1998 Pneumococcal Vaccines 50+ (1 of 1 - PCV) 2003 Zoster (Shingles) Vaccine (1 of 2) 2003 DXA Bone Density (Females,Ages 65 and older) 2018 Influenza Vaccine 03/10/2025 05/28/2020, , 06/18/2016, Additional history exists COVID-19 Vaccine ( season) 2025 09/24/2020, 09/03/2020 RSV Vaccine 60 years and older and [...] Final Result from Last 3 Months Insurance [facility] MEDICARE Care Teams Tower Equipment Installer Relationship Specialty Start Date End Date Rosa M Mason APRN [address] [place] [phone] PCP - General Family Medicine 03/15/25
--- OUTSIDE RECORDS SUMMARY | 2025-04-25 12:35 | XMS_ITS | Encounter Summary ---
Author Organization [facility] Address [address] [facility] [address] [place] [address] Phone Care Team Providers Care Ice Cream Man Name Role Phone Yeny Elizabeth NP Primary Care Provider Adolfo Andrea MD Unavailable Yenny Parish MD Unavailable Dian Macias Primary Care Provider [phone] Encounter Details Date Type Department Care Team (Late st Contact Info) Description 08/22/2020 Procedure Pass [facility] [address] [place] [address] Social History Tobacco Use Types Packs/Day Years Used Date Smoking Tobacco: Former Cigarettes Q uit: 2003 Smokeless Tobacco: Never Comments:on and off smoker s ping highschool Alcohol Use Standard Drinks/Week Comments Yes 0 (1 standard drink = 0.6 oz pur e alcohol) 3/10 drinks per week Comments Unknown Sex and Gender Information Value [...] on filedocumented in this encounter Care Teams Ice Cream Man Relationship Specialty Start Date End Date Yeny Elizabeth NP [address] [place] [address] [phone] PCP - General Nurse Practitioner 06/04/18 07/07/22 Dian Macias PA [address] [place] [address] [email or web address] PCP - General 07/08/22 Adolfo Andrea MD [address] [place] [phone] [email or web address] Primary Oncologist Hematology and Oncology 08/02/20 Yenny Parish MD [address] [place] [phone] [email or web address] Primary Oncologist Hematology and Oncology 05/09/21 documented as of this encounter Additional Source Comments The information contained in this document represents components of the legal health record. It is not the complete legal health record.[facility]
--- OUTSIDE RECORDS SUMMARY | 2025-04-25 12:35 | XMS_ITS | Encounter Summary ---
Author Organization [facility] Address [address] [facility] [address] [place] [address] Phone Care Team Providers Care Clerk Television Production Name Role Phone Yeyn Elizabeth NP Primary Care Provider [phone] Adolfo Andrea MD Unavailable Yenny Parish MD Unavailable Dian Macias Primary Care Provider [phone] Encounter Details Date Type Department Care Team (Late st Contact Info) Description 08/31/2020 Procedure Pass [facility], Ct Scan - [address] [phone] Social History Tobacco Use Types Packs/Day Years [...] on filedocumented in this encounter Care Teams Clerk Television Production Relationship Specialty Start Date End Date Yeny Elizabeth NP [address] [place] [phone] PCP - General Nurse Practitioner 06/04/18 07/07/22 Dian Macias PA [address] [place] [address] [email or web address] PCP - General 07/08/22 Adolfo Andrea MD [address] [place] [address] [email or web address] Primary Oncologist Hematology and Oncology 08/02/20 Yenny Parish MD [address] [place] [phone] [email or web address] Primary Oncologist Hematology and Oncology 05/09/21 documented as of this encounter Additional Source Comments The information contained in this document represents components of the legal health record. It is not the complete legal health record.[facility]
--- OUTSIDE RECORDS SUMMARY | 2025-04-25 12:35 | XMS_ITS | Encounter Summary ---
Author Organization [facility] Address [address] [facility] [address] [place] [address] Phone Care Team Providers Care Shade Hanger Name Role Phone Yeny Elizabeth NP Primary Care Provider [phone] Adolfo Andrea MD Unavailable Yenny Parish MD Unavailable Dian Macias Primary Care Provider [phone] Encounter Details Date Type Department Care Team (Late st Contact Info) Description 08/20/2020 Procedure Pass [facility] [address] [place] [address] Social History Tobacco Use Types Packs/Day Years [...] on filedocumented in this encounter Care Teams Shade Hanger Relationship Specialty Start Date End Date Yeny Elizabeth NP [address] [place] [phone] PCP - General Nurse Practitioner 06/04/18 07/07/22 Dian Macias PA [address] [place] [address] [email or web address] PCP - General 07/08/22 Adolfo Andrea MD [address] [place] [phone] [email or web address] Primary Oncologist Hematology and Oncology 08/02/20 Yenny Parish MD [address] [place] [phone] [email or web address] Primary Oncologist Hematology and Oncology 05/09/21 documented as of this encounter Additional Source Comments The information contained in this document represents components of the legal health record. It is not the complete legal health record.[facility]
--- OUTSIDE RECORDS SUMMARY | 2025-04-25 12:35 | XMS_ITS | Encounter Summary ---
Author Organization [facility] Address [address] [facility] [address] [place] [address] Phone Care Team Providers Care Form Builder Name Role Phone Yeny Elizabeth NP Primary Care Provider [phone] Adolfo Andrea MD Unavailable Yenny Parish MD Unavailable Dian Macias Primary Care Provider [phone] Encounter Details Date Type Department Care Team (Late st Contact Info) Description 08/31/2020 Procedure Pass [facility], Ct Scan - [address] [phone] Social History Tobacco Use Types Packs/Day Years [...] on filedocumented in this encounter Care Teams Form Builder Relationship Specialty Start Date End Date Yeny Elizabeth NP [address] [place] [phone] PCP - General Nurse Practitioner 06/04/18 07/07/22 Dian Macias PA [address] [place] [address] [email or web address] [email or web address] - General 07/08/22 Adolfo Andrea MD [address] [place] [address] [email or web address] Primary Oncologist Hematology and Oncology 08/02/20 Yenny Parish MD [address] [place] [phone] [email or web address] Primary Oncologist Hematology and Oncology 05/09/21 documented as of this encounter Additional Source Comments The information contained in this document represents components of the legal health record. It is not the complete legal health record.[facility]
--- OUTSIDE RECORDS SUMMARY | 2025-04-25 12:35 | XMS_ITS | Encounter Summary ---
Author Organization [facility] Address [address] [place] [address] Phone Care Team Providers Care Career Technical Supervisor Name Role Phone Yeny Elizabeth NP Primary Care Provider [phone] Adolfo Andrea MD Unavailable Yenny Parish MD Unavailable Dian Macias Primary Care Provider [phone] Reason for Referral * MRI/CAT Scan - Closed Specialty Diagnoses / Procedures Referred By Contac t Referred To Contact Radiology Diagnoses Hepatomegaly, not elsewhere classified Procedures MRI Abdomen Yeny Elizabeth NP Phone: tel: Referral ID Status Reason Start Date Expiration Date Visits Re quested Visits Authorized [id number] Closed 07/10/2020 07/10/2021 1 1 * MRI/CAT Scan - Closed Specialty Diagnoses / Procedures Referred By Contac t Referred To Contact Radiology Diagnoses Multiple nodules of lung Other nonspecific abnormal finding of lung field Procedures CT Chest Yeny Elizabeth NP Phone: tel: Referral ID Status Reason Start Date Expiration Date Visits Re quested Visits Authorized [id number] Closed 07/10/2020 07/10/2021 1 1 Encounter Details Date Type Department Care Team (Late st Contact Info) Description 07/10/2020 Transcribe Orders [facility] Department [address] [place] [address] Yeny Elizabeth NP [address] [place] [address] Multiple nodules of lung (Primary Dx); Other nonspecific abnormal finding of lung field; Hepatomegaly, not elsewhere classified Social History Tobacco Use Types Packs/Day Years Used Date Smoking Tobacco: Some Days Smokeless Tobacco: Never Comments:avg week- 5 cigs Alcohol Use Standard Drinks/Week Comments Yes 0 [...] on file documented as of this encounter Results * MRI ABDOMEN WITH AND WITHOUT CONTRAST (07/19/2020 10:28 AM EST) Anatomical Region Laterality Modality Abdomen Magnetic Resonan ce 07/19/2020 10:4 2 AM EST Impressions 07/19/2020 11:37 AM EST 1. Right lobe liver lesion appears to be a benign hemangioma. No specific follow-up considered necessary. 2. 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 No specific follow-up considered necessary. No other upper abdominal pathology is apparent. POS [id number] Narrative 07/19/2020 11:37 AM EST TECHNIQUE: 1.5 Ally scanner. Imaging without and with IV contrast. Compare to CT 07/03/2020 FINDINGS: The 14 mm hypodense mass seen in segment 8 of the right lobe of liver on the recent CT is easily identified. On the multi-phase exam it fills in with contrast centripetally, in a pattern consistent with a benign hemangioma. No other hepatic masses. 13 mm right adrenal mass loses about 75% of signal intensity on out of phase chemical shift imaging almost certainly indicating a lipid rich adenoma. 11 mm left adrenal nodule loses about 60% of signal intensity on out of phase chemical shift imaging also almost certainly indicating lipid rich adenoma. Gallbladder, biliary tree, pancreas and spleen unremarkable. No adenopathy, ascites or pleural effusion. Procedure Note Jeffrey Pond MD - 07/19/2020 TECHNIQUE: 1.5 Ally scanner. Imaging without and with IV contrast. Compare to CT 07/03/2020 FINDINGS: The 14 mm hypodense mass seen in segment 8 of the right lobe of liver onthe recent CT is easily identified. On the multi-phase exam it fills inwith contrast centripetally, in a pattern consistent with a benignhemangioma. No other hepatic masses. 13 mm right adrenal mass loses about 75% of signal intensity on out ofphase chemical shift imaging almost certainly indicating a lipid richadenoma. 11 mm left adrenal nodule loses about 60% of signal intensity on out ofphase chemical shift imaging also almost certainly indicating lipid richadenoma. Gallbladder, biliary tree, pancreas and spleen unremarkable. No adenopathy, ascites or pleural effusion. IMPRESSION: 1. Right lobe liver lesion appears to be a benign hemangioma. No specificfollow- up considered necessary. 2. 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 Nospecific follow-up considered necessary. No other upper abdominal pathology is apparent. POS [id number] Yeny Elizabeth NP IMG MR ABDOMEN Final Result * CT CHEST WITH CONTRAST (07/19/2020 10:25 AM EST) Anatomical Region Laterality Modality Chest Computed Tomogra phy 07/19/2020 10:3 0 AM EST Impressions 07/19/2020 10:54 AM EST 1. Diffuse bilateral pulmonary nodules. While nodules could be inflammatory the appearance is suspicious for metastatic disease. A primary source is not clearly apparent. Clinical follow-up recommended. If patient has not had a bilateral mammogram recently mammogram should be considered. 2. 1.3 cm right adrenal nodule consistent with an adenoma. Narrative 07/19/2020 10:54 AM EST HISTORY: Pulmonary nodules on recent CT of abdomen., current everyday smoker. COMPARISON: CT abdomen 07/03/2020. TECHNIQUE: CT chest with IV contrast. Multiplanar reformats generated. Automated exposure control utilized. FINDINGS: Right lung/pleura: Mild centrilobular emphysematous changes. Diffuse sub- centimeter pulmonary nodules, the largest measuring 9 mm in maximal diameter (for instance image 84). Many have hazy and spiculated margins. No evidence of cavitation. No bronchiectasis No pleural effusion. Left lung/pleura: Mild centrilobular emphysematous changes. Diffuse sub- centimeter pulmonary nodules, the largest measuring 7 mm in maximal diameter (for instance image 182). Many of the nodules have hazy and spiculated margins. No evidence of cavitation. No bronchiectasis. No pleural effusion. Trachea/mainstem bronchi: Tiny nodular density intimately associated with the anterolateral aspect of the wall of the proximal trachea (series 4, image 32, likely clinically insignificant. Lymph nodes/lymphatics: No measurable lymphadenopathy. Cardiovascular: Heart size normal. No pericardial effusion. Thoracic aorta normal in caliber. Very mild atherosclerotic changes within the descending thoracic aorta. Thyroid: 12 mm hypodense nodule in the right thyroid lobe. The right thyroid lobe is larger and more round than the left. Esophagus: No significant abnormalities. Musculoskeletal: No evidence of chest wall masses. No suspicious lytic or blastic lesions within the bones. Upper abdomen: No significant changes. A low-density nodule in the right adrenal gland described on previous CT abdomen report measuring 1.3 cm has Hounsfield units as low as 8. Procedure Note Frank Simpson MD - 07/19/2020 HISTORY: Pulmonary nodules on recent CT of abdomen., current everydaysmoker. COMPARISON: CT abdomen 07/03/2020. TECHNIQUE: CT chest with IV contrast. Multiplanar reformats generated.Automated exposure control utilized. FINDINGS: Right lung/pleura: Mild centrilobular emphysematous changes. Diffusesub- centimeter pulmonary nodules, the largest measuring 9 mm in maximaldiameter (for instance image 84). Many have hazy and spiculated margins.No evidence of cavitation. No bronchiectasis No pleural effusion. Left lung/pleura: Mild centrilobular emphysematous changes. Diffusesub- centimeter pulmonary nodules, the largest measuring 7 mm in maximaldiameter (for instance image 182). Many of the nodules have hazy andspiculated margins. No evidence of cavitation. No bronchiectasis. Nopleural effusion. Trachea/mainstem bronchi: Tiny nodular density intimately associated withthe anterolateral aspect of the wall of the proximal trachea (series 4,image 32, likely clinically insignificant. Lymph nodes/lymphatics: No measurable lymphadenopathy. Cardiovascular: Heart size normal. No pericardial effusion. Thoracicaorta normal in caliber. Very mild atherosclerotic changes within thedescending thoracic aorta. Thyroid: 12 mm hypodense nodule in the right thyroid lobe. The rightthyroid lobe is larger and more round than the left. Esophagus: No significant abnormalities. Musculoskeletal: No evidence of chest wall masses. No suspicious lytic orblastic lesions within the bones. Upper abdomen: No significant changes. A low-density nodule in the rightadrenal gland described on previous CT abdomen report measuring 1.3 cm hasHounsfield units as low as 8. IMPRESSION: 1. Diffuse bilateral pulmonary nodules. While nodules could beinflammatory the appearance is suspicious for metastatic disease. Aprimary source is not clearly apparent. Clinical follow-up recommended. Ifpatient has not had a bilateral mammogram recently mammogram should beconsidered. 2. 1.3 cm right adrenal nodule consistent with an adenoma. Yeny Elizabeth CAR CARDER IMG CT CHEST Final Result documented in this encounter Visit Diagnoses Diagnosis Multiple nodules of lung- Primary Other nonspecific abnormal finding of lung field Hepatomegaly, not elsewhere classified Hepatomegaly, not elsewhere classified Multiple nodules of lung Other nonspecific abnormal finding of lung field documented in this encounter Care Teams Career Technical Supervisor Relationship Specialty Start Date End Date Yeny Elizabeth NP [address] [place] [address] PCP - General Nurse Practitioner 06/04/18 07/07/22 Dian Macias PA [address] [place] [address] [email or web address] PCP - General 07/08/22 Adolfo Andrea MD [address] [place] [address] [email or web address] Primary Oncologist Hematology and Oncology 08/02/20 Yenny Parish MD [address] [place] [address] [email or web address] Primary Oncologist Hematology and Oncology 05/09/21 documented as of this encounter Additional Source Comments The information contained in this document represents components of the legal health record. It is not the complete legal health record.[facility]
--- OUTSIDE RECORDS SUMMARY | 2025-04-25 12:35 | XMS_ITS | Encounter Summary ---
Author Organization [facility] Address [address] [place] [address] Phone Care Team Providers Care Pan Pusher Name Role Phone Yeny Elizabeth NP Primary Care Provider [phone] Adolfo Andrea MD Unavailable Yenny Parish MD Unavailable Dian Macias Primary Care Provider Encounter Details Date Type Department Care Team (Late st Contact Info) Description 01/21/2021 Procedure Pass [facility], Ct Scan - [address] [id number] Social History Tobacco Use Types Packs/Day Years [...] on filedocumented in this encounter Care Teams Pan Pusher Relationship Specialty Start Date End Date Yeny Elizabeth NP [address] [place] [id number] PCP - General Nurse Practitioner 06/04/18 07/07/22 Dian Macias PA [address] [place] [address] [email or web address] PCP - General 07/08/22 Adolfo Andrea MD [address] [place] [address] [email or web address] Primary Oncologist Hematology and Oncology 08/02/20 Yenny Parish MD [address] [place] [id number] [email or web address] Primary Oncologist Hematology and Oncology 05/09/21 documented as of this encounter Additional Source Comments The information contained in this document represents components of the legal health record. It is not the complete legal health record.[facility]
--- OUTSIDE RECORDS SUMMARY | 2025-04-25 12:35 | XMS_ITS | Encounter Summary ---
Author Organization [facility] Address [address] [place] [address] Phone Care Team Providers Care Railroad Operating Engineer Name Role Phone Yeny Elizabeth NP Primary Care Provider [phone] Adolfo Andrea MD Unavailable Yenny Parish MD Unavailable Dian Macias Primary Care Provider [phone] Encounter Details Date Type Department Care Team (Late st Contact Info) Description 07/10/2020 Procedure Pass [facility], Ct Scan - [address] [address] Social History Tobacco Use Types Packs/Day Years [...] on filedocumented in this encounter Care Teams Railroad Operating Engineer Relationship Specialty Start Date End Date Yeny Elizabeth NP [address] [place] [id number] PCP - General Nurse Practitioner 06/04/18 07/07/22 Dian Macias PA [address] [place] [address] [email or web address] PCP - General 07/08/22 Adolfo Andrea MD [address] [place] [address] [email or web address] Primary Oncologist Hematology and Oncology 08/02/20 Yenny Parish MD [address] [place] [phone] [email or web address] Primary Oncologist Hematology and Oncology 05/09/21 documented as of this encounter Additional Source Comments The information contained in this document represents components of the legal health record. It is not the complete legal health record.[facility]
--- OUTSIDE RECORDS SUMMARY | 2025-04-25 12:35 | XMS_ITS | Encounter Summary ---
Author Organization [facility] Address [address] [place] [address] Phone Care Team Providers Care Spa Assistant Manager Name Role Phone Yeny Elizabeth NP Primary Care Provider [phone] Adolfo Andrea MD Unavailable Yenny Parish MD Unavailable Dian Macias Primary Care Provider [phone] Encounter Details Date Type Department Care Team (Late st Contact Info) Description 07/10/2020 Procedure Pass [facility], [address] [address] Social History Tobacco Use Types Packs/Day Years [...] AM EDT documented as of this encounter Last Filed Vital Signs Vital Sign Reading Time Taken Comments Blood Pressure - - Pulse - - Temperature - - Respiratory Rate - - Oxygen Saturation - - Inhaled Oxygen Concentration - - Weight 64.9 kg (143 lb) 07/13/2020 2:14 PM EST Height 160 cm (5' 3 ) 07/13/2020 2:14 PM EST Body Mass Index 25.33 07/13/2020 2:14 PM EST documented in this encounter Plan of Treatment Not on file documented as of this encounter Visit Diagnoses Not on filedocumented in this encounter Care Teams Spa Assistant Manager Relationship Specialty Start Date End Date Yeny Elizabeth SURFACE PLATE FINISHER [address] [place] [phone] PCP - General Nurse Practitioner 06/04/18 07/07/22 Dian Macias PA [address] [place] [address] [email or web address] PCP - General 07/08/22 Adolfo Andrea MD [address] [place] [phone] [email or web address] Primary Oncologist Hematology and Oncology 08/02/20 Yenny Parish MD [address] [place] [address] [email or web address] Primary Oncologist Hematology and Oncology 05/09/21 documented as of this encounter Additional Source Comments The information contained in this document represents components of the legal health record. It is not the complete legal health record.[facility]
--- OUTSIDE RECORDS SUMMARY | 2025-04-25 12:36 | XMS_ITS | Encounter Summary ---
Author Organization [facility] Address [address] [place] [address] Phone Care Team Providers Care Cardiopulmonary Specialist Name Role Phone Yeny Elizabeth NP Primary Care Provider [phone] Adolfo Andrea MD Unavailable Yenny Parish MD Unavailable Dian Macias Primary Care Provider [phone] Reason for Referral * MRI/CAT Scan - Closed Specialty Diagnoses / Procedures Referred By Contac t Referred To Contact Radiology Diagnoses Abdominal pain, unspecified abdominal location Procedures CT Abdomen/Pelvis Peyton Goodwin NP [address] [place] [address] Phone: tel: fax: [address] Phone: tel: Referral ID Status Reason Start Date Expiration Date Visits Re quested Visits Authorized [id number] Closed 06/21/2020 06/21/2021 1 1 Encounter Details Date Type Department Care Team (Late st Contact Info) Description 06/21/2020 Transcribe Orders [facility] Department [address] [place] [phone] Peyton Goodwin NP [address] [place] [phone] Abdominal pain, unspecified abdominal location (Primary Dx) Social History Tobacco Use Types Packs/Day Years [...] documented as of this encounter Results * CT ABDOMEN/PELVIS WITH CONTRAST (07/03/2020 10:53 AM EST) Anatomical Region Laterality Modality Abdomen, Pelvis Computed Tomogra phy 07/03/2020 11:2 2 AM EST Impressions 07/03/2020 11:42 AM EST 1.No findings to account for the patient's right flank pain. 2.Multiple subcentimeter pulmonary nodules. Chest CT is recommended. 3.Indeterminate small bilateral adrenal gland masses. 4.1.3 cm right hepatic lobe hypodense lesion. This may represent an incidental hemangioma. A follow-up MRI of the liver is recommended which can also be used to better characterize the adrenal gland masses. 5.Additional findings as above. Narrative 07/03/2020 11:42 AM EST COMPARISON: No prior imaging for comparison. CT abdomen pelvis report dated 04/24/2006 (multiple findings below not reported previously). TECHNIQUE: CT abdomen and pelvis with IV contrast only. Multiplanar reformatted images generated. Automated exposure control utilized. Marker placed at site of pain in the lower lateral right abdominal wall. CT ABDOMEN AND PELVIS FINDINGS: Lung bases/heart: Imaged heart is normal. Mild bilateral lower lobe bronchial wall thickening. Incompletely imaged is a 6 x 6 right middle lobe nodule contiguous with the major fissure. There is additional subcentimeter pulmonary nodules in the right middle lobe and right lower lobe with the second largest measuring 4 x 5 mm in the right lower lobe. Spleen: Normal. Liver: New small ill-defined hypodensity in the right hepatic lobe/segment VIII measuring 1.1 x 1.3 cm. Gallbladder/biliary tree: Normal. Pancreas: Moderate atrophy. Adrenal glands: Small bilateral hypodense adrenal gland masses. 1.4 x 1.5 cm right adrenal gland mass and 1 x 0.9 cm left adrenal gland mass. Vasculature: Moderate diffuse arterial calcified plaque without AAA or acute findings. Genitourinary: There are bilateral subcentimeter hypodensities in the lower renal poles which are too small to characterize. These may represent incidental benign cysts or angiomyolipomas. Bladder is normal. No adnexal masses. Small upper uterine body calcified fibroids. Gastrointestinal tract: Mild sigmoid colon diverticulosis. No acute findings. Peritoneum/retroperitoneum: No enlarged lymph nodes, ascites or fluid collections. Musculoskeletal: Small fat-containing umbilical hernia. No abnormality at the site of the marker. Osteopenia. Multilevel lumbar spine disc disease and facet arthropathy which is severe at L5-S1. No compression fractures. 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 No destructive or suspicious bone lesions. Procedure Note Igor Quiroga MD - 07/03/2020 COMPARISON: No prior imaging for comparison. CT abdomen pelvis reportdated 04/24/2006 (multiple findings below not reported previously). TECHNIQUE: CT abdomen and pelvis with IV contrast only. Multiplanarreformatted images generated. Automated exposure control utilized. Markerplaced at site of pain in the lower lateral right abdominal wall. CT ABDOMEN AND PELVIS FINDINGS: Lung bases/heart: Imaged heart is normal. Mild bilateral lower lobebronchial wall thickening. Incompletely imaged is a 6 x 6 right middlelobe nodule contiguous with the major fissure. There is additionalsubcentimeter pulmonary nodules in the right middle lobe and right lowerlobe with the second largest measuring 4 x 5 mm in the right lower lobe. Spleen: Normal. Liver: New small ill-defined hypodensity in the right hepatic lobe/segmentVIII measuring 1.1 x 1.3 cm. Gallbladder/biliary tree: Normal. Pancreas: Moderate atrophy. Adrenal glands: Small bilateral hypodense adrenal gland masses. 1.4 x 1.5cm right adrenal gland mass and 1 x 0.9 cm left adrenal gland mass. Vasculature: Moderate diffuse arterial calcified plaque without AAA oracute findings. Genitourinary: There are bilateral subcentimeter hypodensities in thelower renal poles which are too small to characterize. These may representincidental benign cysts or angiomyolipomas. Bladder is normal. No adnexalmasses. Small upper uterine body calcified fibroids. Gastrointestinal tract: Mild sigmoid colon diverticulosis. No acutefindings. Peritoneum/retroperitoneum: No enlarged lymph nodes, ascites or fluidcollections. Musculoskeletal: Small fat-containing umbilical hernia. No abnormality atthe site of the marker. Osteopenia. Multilevel lumbar spine disc diseaseand facet arthropathy which is severe at L5-S1. No compression fractures.Mild bilateral hip and SI joint osteoarthritis. No destructive orsuspicious bone lesions. IMPRESSION: 1.No findings to account for the patient's right flank pain. 2.Multiple subcentimeter pulmonary nodules. Chest CT is recommended. 3.Indeterminate small bilateral adrenal gland masses. 4.1.3 cm right hepatic lobe hypodense lesion. This may represent anincidental hemangioma. A follow-up MRI of the liver is recommended whichcan also be used to better characterize the adrenal gland masses. 5.Additional findings as above. Peyton Goodwin NP IMG CT ABD/PELVIS Final Result documented in this encounter Visit Diagnoses Diagnosis Abdominal pain, unspecified abdominal location- Primary Abdominal pain, unspecified abdominal location documented in this encounter Care Teams Cardiopulmonary Specialist Relationship Specialty Start Date End Date Yeny Elizabeth NP [address] [place] [id number] PCP - General Nurse Practitioner 06/04/18 07/07/22 Dian Macias PA [address] [place] [address] [email or web address] - General 07/08/22 Adolfo Andrea MD [address] [place] [phone] [email or web address] Primary Oncologist Hematology and Oncology 08/02/20 Yenny Parish MD [address] [place] [address] [email or web address] Primary Oncologist Hematology and Oncology 05/09/21 documented as of this encounter Additional Source Comments The information contained in this document represents components of the legal health record. It is not the complete legal health record.[facility]
--- OUTSIDE RECORDS SUMMARY | 2025-04-25 12:36 | XMS_ITS | Encounter Summary ---
Author Organization [facility] Address [address] [place] [address] Phone Care Team Providers Care Flange Machine Operator Name Role Phone Yeny Elizabeth NP Primary Care Provider [phone] Adolfo Andrea MD Unavailable Yenny Parish MD Unavailable Dian Macias Primary Care Provider [phone] Encounter Details Date Type Department Care Team (Late st Contact Info) Description 06/08/2018 Procedure Pass [facility]oscopy Admitting Dept Virtual Department [address] [place] [phone] Social History Tobacco Use Types Packs/Day Years [...] on filedocumented in this encounter Care Teams Flange Machine Operator Relationship Specialty Start Date End Date Yeny Elizabeth NP [address] [place] [id number] PCP - General Nurse Practitioner 10/26/18 11/28/22 Dian Macias PA [address] [place] [address] [email or web address] PCP - General 07/08/22 Adolfo Andrea MD [address] [place] [address] [email or web address] Primary Oncologist Hematology and Oncology 08/02/20 Yenny Parish MD [address] [place] [phone] [email or web address] Primary Oncologist Hematology and Oncology 05/09/21 documented as of this encounter Additional Source Comments The information contained in this document represents components of the legal health record. It is not the complete legal health record.[facility]
--- OUTSIDE RECORDS SUMMARY | 2025-04-25 12:36 | XMS_ITS | Encounter Summary ---
Author Organization [facility] Address [address] [facility] [address] [place] [address] Phone Care Team Providers Care K 8 School Principal Name Role Phone Yeny Elizabeth NP Primary Care Provider [phone] Adolfo Andrea MD Unavailable Yenny Parish MD Unavailable Dian Macias Primary Care Provider [phone] Encounter Details Date Type Department Care Team (Late st Contact Info) Description 06/21/2020 Procedure Pass [facility], Ct Scan - [address] [address] Social History Tobacco Use Types Packs/Day Years [...] on filedocumented in this encounter Care Teams [employer] Principal Relationship Specialty Start Date End Date Yeny Elizabeth NP [address] [place] [address] PCP - General Nurse Practitioner 06/04/18 07/07/22 Dian Macias PA [address] [place] [address] [email or web address] PCP - General 07/08/22 Adolfo Andrea MD [address] [place] [address] [email or web address] Primary Oncologist Hematology and Oncology 08/02/20 Yenny Parish MD [address] [place] [phone] [email or web address] Primary Oncologist Hematology and Oncology 05/09/21 documented as of this encounter Additional Source Comments The information contained in this document represents components of the legal health record. It is not the complete legal health record.[facility]
[2025-04-25 12:41] LABS: Alanine Aminotransferase 26 U/L (0-31); Albumin Level 4.8 g/dL (3.5-5.0); Alkaline Phosphatase 91 U/L (39-117); Anion Gap 11 (12-20); Aspartate Amino Transferase 28 U/L (5-31); Blood Urea Nitrogen 9 mg/dL (9-16); Calcium 9.7 mg/dL (8.4-10.2); Carbon Dioxide 29 mmol/L (22-29); Chloride 105 mmol/L (96-108); Estimated Glomerular Filt Rate > 60; Potassium 3.6 mmol/L (3.3-5.1); Sodium 141 mmol/L (135-145); Total Protein 7.4 g/dL (6.5-8.0)
[2025-04-25 13:15] LABS: Folate 9.3 ng/mL (> or = 4.0); Vitamin B12 696 pg/mL (200-900)
== END ==
LOC: HO.CARD 09:47
PROVIDERS: PCP Nurse Practitioner Family; Visit Provider Internal Medicine Cardiovascular Disease
DX: Z01.810 Encounter for preprocedural cardiovascular examination (principal); I10 Essential (primary) hypertension; E53.8 Deficiency of other specified B group vitamins
CPT/HCPCS: 36415; 78452; 80053; 82607; 82746; 93017; A9500; J0280; J2785

== ENCOUNTER → 2025-04-25 09:49 | Outpatient (BNV) | payer MEDICARE, MEDICAID, SELFPAY | PROVIDERS: PCP Nurse Practitioner Family | DX: I49.1 Atrial premature depolarization (principal); I49.3 Ventricular premature depolarization; R06.02 Shortness of breath; R00.2 Palpitations; R42 Dizziness and giddiness | CPT/HCPCS: 78452; 93016; 93018 ==

== ENCOUNTER 2025-04-27 14:08 | Outpatient (REF) | payer MEDICARE, MEDICAID, SELFPAY ==
--- NOTE | ~2025-04-27 | CT_ITS ---
EXAMINATION: CT INTERNAL AUDITORY CANALS WITHOUT CONTRAST CLINICAL INFORMATION: Semicircular canal dehiscence syndrome COMPARISON: None available. TECHNIQUE: Contiguous axial imaging was performed from the skull base to vertex was obtained without administration of intravenous contrast. This CT examination was performed using dose optimization techniques as appropriate, variously including the following: *Automated exposure control *Adjustment of mA and/or kV according to patient size (this includes techniques or standardized protocols for targeted exams where dose is matched to indication/reason for exam; i.e. extremities or head) *Use of iterative reconstruction technique FINDINGS: Right: External auditory canal is clear. Mastoid air cells and middle ear cavity are clear. Ossicles appear intact. Sharp scutum. The facial nerve canal follows normal course and appears covered by bone. Semicircular canals are covered by bone. Cochlea appears normal. Vestibular aqueduct is not enlarged. Left: External auditory canal is clear. Mastoid air cells and middle ear cavity are clear. Ossicles appear intact. Sharply scutum. The facial nerve canal follows normal course and appears covered by bone. Semicircular canals are covered by bone. Cochlea appears normal. Vestibular aqueduct is not enlarged. Paranasal sinuses: Minor mucosal thickening of the ethmoid air cells and right maxillary sinus. Temporomandibular joints: Intact CT/CT internal auditory canals BI IMPRESSION: Unremarkable examination. No CT evidence of semicircular canal dehiscence seen. Electronically signed by: Mack Maurice MD 04/27/2025 06:29 PM EDT
--- NOTE | ~2025-04-27 | CT_ITS ---
EXAMINATION: CT SOFT TISSUE NECK WITH CONTRAST CLINICAL INFORMATION: Edema COMPARISON: None available. TECHNIQUE: Following the intravenous administration of 60 cc of Omnipaque 350 intravenous contrast, helical imaging was performed in the axial plane with generation of coronal and sagittal reformatted images. This CT examination was performed using dose optimization techniques as appropriate, variously including the following: *Automated exposure control *Adjustment of mA and/or kV according to patient size (this includes techniques or standardized protocols for targeted exams where dose is matched to indication/reason for exam; i.e. extremities or head) *Use of iterative reconstruction technique FINDINGS: Streak artifacts from patient's dental fillings limit evaluation. ORBITS/BRAIN: Evidence of lens replacement of bilateral orbital globes. Included portions of the brain are unremarkable. PARANASAL SINUSES: Clear. LYMPH NODES: No cervical lymphadenopathy is identified. NECK SPACES: Pharynx/larynx appear symmetric and with normal appearance. SALIVARY GLANDS: Atrophic appearance of the right parotid gland in comparison to the left side. Symmetrical and normal appearance of the submandibular glands. THYROID GLAND: Status post right thyroidectomy. No nodules in the left thyroid gland. VASCULATURE: Major neck vessels are patent. Atherosclerotic disease with calcifications at the level of bilateral carotid bifurcations. BONES AND SOFT TISSUES: Degenerative changes of the cervical spine. Overlying soft tissues are unremarkable, without focal areas of edema. LUNGS: Centrilobular emphysema. Multiple bilateral pulmonary nodules are cavitated, for example 0.6 cm in the left upper lobe (7:261/428). CT/CT soft tissue neck w IV con IMPRESSION: 1. Location of clinical concern of edema is not provided. No focal areas of soft tissue edema. 2. Atrophic appearance of the right parotid gland. 3. Multiple and bilateral cavitated pulmonary nodules measuring up to 0.6 cm. If no prior chest CT study is available, recommend chest CT for better evaluation. Electronically signed by: Mack Maurice MD 04/27/2025 07:02 PM EDT
--- OUTSIDE RECORDS SUMMARY | 2025-04-27 16:04 | XMS_ITS | Encounter Summary ---
Author Organization [facility] Address [address] [facility] [address] [place] [address] Phone Care Team Providers Care Security Officer Supervisor Name Role Phone Yeny Elizabeth NP Primary Care Provider [phone] Adolfo Andrea MD Unavailable Yenny Parish MD Unavailable Dian Macias Primary Care Provider [phone] Encounter Details Date Type Department Care Team (Late st Contact Info) Description 08/31/2020 Procedure Pass [facility], Ct Scan - [address] [id number] Social History Tobacco Use Types Packs/Day Years [...] on filedocumented in this encounter Care Teams Security Officer Supervisor Relationship Specialty Start Date End Date Yeny Elizabeth NP [address] [place] [address] PCP - General Nurse Practitioner 06/04/18 07/07/22 Dian Macias PA [address] [place] [address] [email or web address] PCP - General 07/08/22 Adolfo Andrea MD [address] [place] [address] [email or web address] Primary Oncologist Hematology and Oncology 08/02/20 Yenny Parish MD [address] [place] [phone] [email or web address] Primary Oncologist Hematology and Oncology 05/09/21 documented as of this encounter Additional Source Comments The information contained in this document represents components of the legal health record. It is not the complete legal health record.[facility]
--- OUTSIDE RECORDS SUMMARY | 2025-04-27 16:04 | XMS_ITS | Encounter Summary ---
Author Organization [facility] Address [address] [facility] [address] [place] [address] Phone Care Team Providers Care Corn Miller Name Role Phone Yeny Elizabeth NP Primary Care Provider [phone] Adolfo Andrea MD Unavailable Yenny Parish MD Unavailable Dian Macias Primary Care Provider [phone] Reason for Referral * MRI/CAT Scan - Closed Specialty Diagnoses / Procedures Referred By Contac t Referred To Contact Radiology Diagnoses Abdominal pain, unspecified abdominal location Procedures CT Abdomen/Pelvis Peyton Goodwin NP [address] [place] [address] Phone: tel: fax: [address] Phone: tel: Referral ID Status Reason Start Date Expiration Date Visits Re quested Visits Authorized [id number] Closed 06/21/2020 06/21/2021 1 1 Encounter Details Date Type Department Care Team (Late st Contact Info) Description 06/21/2020 Transcribe Orders [facility] Department [address] [place] [id number] Peyton Goodwin NP [address] [place] [address] [phone] Abdominal pain, unspecified abdominal location (Primary Dx) [...] location documented in this encounter Care Teams Corn Miller Relationship Specialty Start Date End Date Yeny Elizabeth NP [address] [place] [address] PCP - General Nurse Practitioner 06/04/18 07/07/22 Dian Macias PA [address] [place] [address] [email or web address] PCP - General 07/08/22 Adolfo Andrea MD [address] [place] [phone] [email or web address] Primary Oncologist Hematology and Oncology 08/02/20 Yenny Parish MD [address] [place] [address] [email or web address] Primary Oncologist Hematology and Oncology 05/09/21 documented as of this encounter Additional Source Comments The information contained in this document represents components of the legal health record. It is not the complete legal health record.[facility]
--- OUTSIDE RECORDS SUMMARY | 2025-04-27 16:04 | XMS_ITS | Encounter Summary ---
Author Organization [facility] Address [address] [facility] [address] [place] [address] Phone Care Team Providers Care Health Science Instructor Name Role Phone Yeny Elizabeth NP Primary Care Provider [phone] Adolfo Andrea MD Unavailable Yenny Parish MD Unavailable Dian Macias Primary Care Provider [phone] Encounter Details Date Type Department Care Team (Late st Contact Info) Description 08/22/2020 Procedure Pass [facility] [address] [place] [address] Social History Tobacco Use Types Packs/Day Years [...] on filedocumented in this encounter Care Teams Health Science Instructor Relationship Specialty Start Date End Date Yeny Elizabeth NP [address] [place] [address] [phone] PCP - General Nurse Practitioner 06/04/18 07/07/22 Dian Macias PA [address] [place] [address] [email or web address] PCP - General 07/08/22 Adolfo Andrea MD [address] [place] [address] [email or web address] Primary Oncologist Hematology and Oncology 08/02/20 Yenny Parish MD [address] [place] [phone] [email or web address] Primary Oncologist Hematology and Oncology 05/09/21 documented as of this encounter Additional Source Comments The information contained in this document represents components of the legal health record. It is not the complete legal health record.[facility]
--- OUTSIDE RECORDS SUMMARY | 2025-04-27 16:04 | XMS_ITS | Encounter Summary ---
Author Organization [facility] Address [address] [facility] [address] [place] [address] Phone Care Team Providers Care Financial Data Analyst Name Role Phone Yeny Elizabeth NP Primary Care Provider [phone] Adolfo Andrea MD Unavailable Yenny Parish MD Unavailable Dian Macias Primary Care Provider [phone] Encounter Details Date Type Department Care Team (Late st Contact Info) Description 01/21/2021 Procedure Pass [facility], Ct Scan - [address] [phone] Social History Tobacco Use Types Packs/Day Years [...] on filedocumented in this encounter Care Teams Financial Data Analyst Relationship Specialty Start Date End Date Yeny Elizabeth NP [address] [place] [address] PCP - General Nurse Practitioner 06/04/18 07/07/22 Dian Macias PA [address] [place] [address] [email or web address] PCP - General 07/08/22 Adolfo Andrea MD [address] [place] [address] [email or web address] Primary Oncologist Hematology and Oncology 08/02/20 Yenny Parish MD [address] [place] [phone] [email or web address] Primary Oncologist Hematology and Oncology 05/09/21 documented as of this encounter Additional Source Comments The information contained in this document represents components of the legal health record. It is not the complete legal health record.[facility]
--- OUTSIDE RECORDS SUMMARY | 2025-04-27 16:04 | XMS_ITS | Encounter Summary ---
Author Organization [facility] Address [address] [facility] [address] [place] [address] Phone Care Team Providers Care Nursing Instructor Name Role Phone Yeny Elizabeth NP Primary Care Provider [phone] Adolfo Andrea MD Unavailable Yenny Parish MD Unavailable Dian Macias Primary Care Provider [phone] Encounter Details Date Type Department Care Team (Late st Contact Info) Description 08/31/2020 Procedure Pass [facility], Ct Scan - [address] [phone] Social History Tobacco Use Types Packs/Day Years [...] on filedocumented in this encounter Care Teams Nursing Instructor Relationship Specialty Start Date End Date Yeny Elizabeth NP [address] [place] [address] PCP - General Nurse Practitioner 06/04/18 07/07/22 Dian Macias PA [address] [place] [address] [email or web address] PCP - General 07/08/22 Adolfo Andrea MD [address] [place] [address] [email or web address] Primary Oncologist Hematology and Oncology 08/02/20 Yenny Parish MD [address] [place] [phone] [email or web address] Primary Oncologist Hematology and Oncology 05/09/21 documented as of this encounter Additional Source Comments The information contained in this document represents components of the legal health record. It is not the complete legal health record.[facility]
--- OUTSIDE RECORDS SUMMARY | 2025-04-27 16:04 | XMS_ITS | Encounter Summary ---
Author Organization [facility] Address [address] [facility] [address] [place] [address] Phone Care Team Providers Care Block Layer Name Role Phone Yeny Elizabeth NP Primary Care Provider [phone] Adolfo Andrea MD Unavailable Yenny Parish MD Unavailable Dian Macias Primary Care Provider [phone] Encounter Details Date Type Department Care Team (Late st Contact Info) Description 08/20/2020 Procedure Pass [facility] [address] [place] [address] Social History Tobacco Use Types Packs/Day Years [...] on filedocumented in this encounter Care Teams Block Layer Relationship Specialty Start Date End Date Yeny Elizabeth NP [address] [place] [address] [phone] PCP - General Nurse Practitioner 06/04/18 07/07/22 Dian Macias PA [address] [place] [address] [email or web address] PCP - General 07/08/22 Adolfo Andrea MD [address] [place] [phone] [email or web address] Primary Oncologist Hematology and Oncology 08/02/20 Yenny Parish MD [address] [place] [phone] [email or web address] Primary Oncologist Hematology and Oncology 05/09/21 documented as of this encounter Additional Source Comments The information contained in this document represents components of the legal health record. It is not the complete legal health record.[facility]
--- OUTSIDE RECORDS SUMMARY | 2025-04-27 16:04 | XMS_ITS | Encounter Summary ---
Author Organization [facility] Address [address] [facility] [address] [place] [address] Phone Care Team Providers Care Sales Floor Manager Name Role Phone Yeny Elizabeth NP Primary Care Provider [phone] Adolfo Andrea MD Unavailable Yenny Parish MD Unavailable Dian Macias Primary Care Provider [phone] Encounter Details Date Type Department Care Team (Late st Contact Info) Description 02/08/2021 Procedure Pass [facility], Ct Scan - [address] [phone] Social History Tobacco Use Types Packs/Day Years [...] on filedocumented in this encounter Care Teams Sales Floor Manager Relationship Specialty Start Date End Date Yeny Elizabeth NP [address] [place] [address] PCP - General Nurse Practitioner 06/04/18 07/07/22 Dian Macias PA [address] [place] [address] [email or web address] PCP - General 07/08/22 Adolfo Andrea MD [address] [place] [address] [email or web address] Primary Oncologist Hematology and Oncology 08/02/20 Yenny Parish MD [address] [place] [phone] [email or web address] Primary Oncologist Hematology and Oncology 05/09/21 documented as of this encounter Additional Source Comments The information contained in this document represents components of the legal health record. It is not the complete legal health record.[facility]
--- OUTSIDE RECORDS SUMMARY | 2025-04-27 16:04 | XMS_ITS | Clinical Summary ---
Author Organization [facility] Address [address] [place] [address] Care Team Providers Care Professional Athletes Coach Name Role Phone MauraDaliaRosa M Duke APRN Primary Care Provider + Allergies No known active allergies Medications No known medications Encounters Date Type Department Care Team Description 03/31/2025 Orders Only [facility] [place] [address] [place] [address] Salvador Tarango MD Sensorineural hearing loss (SNHL), bilateral (Primary Dx) 03/15/2025 1:15 PM EDT Clinical Support [facility] [address] [address] Thao Barksdale Au.D Sensorineural hearing loss, bilateral (Primary Dx) 03/15/2025 1:00 PM EDT Office Visit [facility] [address] [address] Salvador Tarango MD Sensorineural hearing [...] Upcoming Encounters Date Type Department Care Team ([facility] st Contact Info) Description 05/17/2025 1:45 PM EDT Office Visit [facility] [place] [address] [facility], [place] [address] Salvador Tarango MD [address] [id number] Health Maintenance Due Date Last Done Comments [...] Final Result from Last 3 Months Insurance [facility] [place] [address] Care Teams Professional Athletes Coach Relationship Specialty Start Date End Date Rosa M Mason APRN [address] [place] [phone] PCP - General Family Medicine 03/15/25
--- OUTSIDE RECORDS SUMMARY | 2025-04-27 16:04 | XMS_ITS | Clinical Summary ---
Author Organization [facility] Address [address] [facility] [address] [place] [address] Phone Care Team Providers Care Emt P Name Role Phone Yenny Parish MD Unavailable Dian Macias Primary Care Provider [phone] Allergies Active Allergy Reactions Criticality Noted Date [...] l 06/16/2011 Influenza, Unspecified Formulation 06/18/2016, Novel [id number], Injectable 07/30/2009 Pneumococcal polysaccharide PPSV23 06/20/2020 Td, [...] EDT) SODIUM 137 133 - 146 mmol/L [facility] POTASSIUM 4.0 3.3 - 5.1 mmol/L [facility] CHLORIDE 101 96 - 108 mmol/L [facility] CO2 25 21 - 35 mmol/L [facility] BUN 10 6 - 19 mg/dL [facility] CREATININE 0.60 0.5 - 1.5 mg/dL [facility] GLUCOSE 139(H) 70 - 99 mg/dL [facility] ALBUMIN 4.5 3.9 - 4.8 g/dL [facility] TOTAL PROTEIN 7.1 6.5 - 8.0 g/dL [facility] CALCIUM 9.8 8.4 - 10.3 mg/dL [facility] ALKALINE PHOSPHATASE 94 39 - 117 U/L [facility] TOTAL BILIRUBIN <0.2 0.0 - 1.2 mg/dL [facility] AST 12 0 - 37 U/L [facility] ALT 12 0 - 40 U/L [facility] GLOBULIN 2.6 1 - 4.8 g/dL [facility] EGFR 94 >59 mL/min/1.7 3m2 [facility] Comment:Estimated glomerular filtration rate calculated using the CKD-EPI equation. ANION GAP 15 10 - 20 mmol/L [facility] Blood 10/25/2020 2:09 PM EDT 10/25/2020 2:15 PM EDT us Adolfo Andrea MD LAB BLOOD ORDERABLES Final Resul t [facility] [address] [place] [address] * ENDOSCOPY, COLON (06/08/2018 10:08 AM EDT) Narrative Transcriptions Frank Corado MD - 06/08/2018 10:08 AM EDT Patient Name: Linda Diehl Attending MD:: FRANK CORADO MD Procedure Date: 06/08/2018 10:08AM Date of : 1955 Age: 63 Admit Type: Outpatient Gender: Female Room: [place] [address] Referring MD: WILL IGLESIAS Exam Type: Colonoscopy [...] monitored continuously. The Olympus adult variable colonoscope [id number] #2 was introduced through the anus and [...] 10:08 AM Procedure Code(s): --- Professional --- 20071, Colonoscopy, flexible; diagnostic, including collection of specimen(s) by brushing or washing, when performed (separateprocedure) --- Technical --- 73943, Colonoscopy, flexible; diagnostic, including collection of specimen(s) by brushing or washing, when performed (separateprocedure) Diagnosis Code(s): --- Professional --- Z86.010, Personal history of colonic polyps --- Technical --- Z86.010, Personal history of colonic polyps CPT copyright 2016 [employer]. All rights reserved. The codes documented in this report are preliminary and upon provider relations consultant reviewmay be revised to meet current compliance requirements. [address] [place] [address] Yeny Elizabeth NP GI PROCEDURE ORDERABLES Final Result from Last 3 Months or Most Recently Relevant to Health Maintenance Insurance MEDICARE SUPPLEMENT [facility] MEDICARE REPLACEMENT [facility] MEDICARE SUPPLEMENT [facility] MEDICARE [place] [address] [place] [address] MEDICARE SUPPLEMENT [facility] MEDICARE REPLACEMENT MEDICARE SUPPLEMENT [facility] MEDICARE REPLACEMENT MEDICARE SUPPLEMENT [facility] MEDICARE REPLACEMENT MEDICARE SUPPLEMENT [facility] MEDICARE REPLACEMENT MEDICARE SUPPLEMENT [facility] MEDICARE REPL[place]EMENT [address] [place] [address] MEDICARE SUPPLEMENT [facility] MEDICARE REPLACEMENT [facility] MEDICARE SUPPLEMENT [facility] MEDICARE REPLACEMENT Member Subscriber Plan / Payer (Ef fective 2021-Present) Name:ShanitaLinda Relation to Subscriber:Self Name:Shanita Linda Payer ID:[id number] (NAIC) Type:Medicare Address: [place] [phone] Care Teams Emt P Relationship Specialty Start Date End Date Dian Macias PA [address] [place] [address] [email or web address] PCP - General 07/08/22 Yenny Parish MD [address] [place] [address] [email or web address] Primary Oncologist Hematology and Oncology 05/09/21 Additional Source Comments The information contained in this document represents components of the legal health record. It is not the complete legal health record.[facility]
--- OUTSIDE RECORDS SUMMARY | 2025-04-27 16:04 | XMS_ITS | Encounter Summary ---
Author Organization [facility] Address [address] [facility] [address] [place] [address] Phone Care Team Providers Care Kayaking Instructor Name Role Phone Yeny Elizabeth NP Primary Care Provider [phone] Adolfo Andrea MD Unavailable Yenny Parish MD Unavailable Dian Macias Primary Care Provider [phone] Encounter Details Date Type Department Care Team (Late st Contact Info) Description 07/10/2020 Procedure Pass [facility], Ct Scan - [address] [address] Social History Tobacco Use Types Packs/Day Years [...] on filedocumented in this encounter Care Teams Kayaking Instructor Relationship Specialty Start Date End Date Yeny Elizabeth NP [address] [place] [address] PCP - General Nurse Practitioner 06/04/18 07/07/22 Dian Macias PA [address] [place] [address] [email or web address] - General 07/08/22 Adolfo Andrea MD [address] [place] [address] [email or web address] Primary Oncologist Hematology and Oncology 08/02/20 Yenny Parish MD [address] [place] [phone] [email or web address] Primary Oncologist Hematology and Oncology 05/09/21 documented as of this encounter Additional Source Comments The information contained in this document represents components of the legal health record. It is not the complete legal health record.[facility]
--- OUTSIDE RECORDS SUMMARY | 2025-04-27 16:04 | XMS_ITS | Encounter Summary ---
Author Organization [facility] Address [address] [place] [address] Phone Care Team Providers Care Logging Tractor Operator Swamp Name Role Phone Yeny Elizabeth NP Primary Care Provider [phone] Adolfo Andrea MD Unavailable Yenny Parish MD Unavailable Dian Macias Primary Care Provider [phone] Reason for Referral * MRI/CAT Scan - Closed Specialty Diagnoses / Procedures Referred By Contac t Referred To Contact Radiology Diagnoses Hepatomegaly, not elsewhere classified Procedures MRI Abdomen Yeny Elizabeth NP Phone: tel: Referral ID Status Reason Start Date Expiration Date Visits Re quested Visits Authorized [id number] Closed 07/10/2020 07/10/2021 1 1 * MRI/CAT Scan - Closed Specialty Diagnoses / Procedures Referred By Contac t Referred To Contact Radiology Diagnoses Multiple nodules of lung Other nonspecific abnormal finding of lung field Procedures CT Chest Yeny Elizabeth NP Phone: tel: Referral ID Status Reason Start Date Expiration Date Visits Re quested Visits Authorized [id number] Closed 07/10/2020 07/10/2021 1 1 Encounter Details Date Type Department Care Team (Late st Contact Info) Description 07/10/2020 Transcribe Orders [facility] Department [address] [place] [address] Yeny Elizabeth NP [address] [place] [address] Multiple nodules of lung (Primary Dx); Other [...] other upper abdominal pathology is apparent. POS [id number] Narrative 07/19/2020 11:37 AM EST TECHNIQUE: 1.5 [...] other upper abdominal pathology is apparent. POS [id number] Yeny Elizabeth NP IMG MR ABDOMEN Final [...] nodule consistent with an adenoma. Yeny Elizabeth CASING GRADER IMG CT CHEST Final Result documented in this encounter Visit Diagnoses Diagnosis Multiple nodules of lung- Primary Other nonspecific abnormal finding of lung field Hepatomegaly, not elsewhere classified Hepatomegaly, not elsewhere classified Multiple nodules of lung Other nonspecific abnormal finding of lung field documented in this encounter Care Teams Logging Tractor Operator Swamp Relationship Specialty Start Date End Date Yeny Elizabeth NP [address] [place] [address] PCP - General Nurse Practitioner 06/04/18 07/07/22 Dian Macias PA [address] [place] [address] [email or web address] PCP - General 07/08/22 Adolfo Andrea MD [address] [place] [address] [email or web address] Primary Oncologist Hematology and Oncology 08/02/20 Yenny Parish MD [address] [place] [address] [email or web address] Primary Oncologist Hematology and Oncology 05/09/21 documented as of this encounter Additional Source Comments The information contained in this document represents components of the legal health record. It is not the complete legal health record.[facility]
--- OUTSIDE RECORDS SUMMARY | 2025-04-27 16:05 | XMS_ITS | Encounter Summary ---
Author Organization [facility] Address [address] [place] [address] Phone Care Team Providers Care Oliving Machine Operator Name Role Phone Yeny Elizabeth NP Primary Care Provider [phone] Adolfo Andrea MD Unavailable Yenny Parish MD Unavailable Dian Macias Primary Care Provider [phone] Encounter Details Date Type Department Care Team (Late st Contact Info) Description 06/21/2020 Procedure Pass , Ct Scan - [address] [address] Social History Tobacco Use Types Packs/Day Years [...] on filedocumented in this encounter Care Teams Oliving Machine Operator Relationship Specialty Start Date End Date Yeny Elizabeth NP [address] [place] [id number] PCP - General Nurse Practitioner 06/04/18 07/07/22 Dian Macias PA [address] [place] [address] [email or web address] [email or web address] - General 07/08/22 Adolfo Andrea MD [address] [place] [address] [email or web address] Primary Oncologist Hematology and Oncology 08/02/20 Yenny Parish MD [address] [place] [id number] [email or web address] Primary Oncologist Hematology and Oncology 05/09/21 documented as of this encounter Additional Source Comments The information contained in this document represents components of the legal health record. It is not the complete legal health record.[facility]
--- OUTSIDE RECORDS SUMMARY | 2025-04-27 16:05 | XMS_ITS | Encounter Summary ---
Author Organization [facility] Address [address] [place] [address] Phone Care Team Providers Care Paper Supervisor Name Role Phone Yeny Elizabeth NP Primary Care Provider [phone] Adolfo Andrea MD Unavailable Yenny Parish MD Unavailable Dian Macias Primary Care Provider [phone] Encounter Details Date Type Department Care Team (Late st Contact Info) Description 06/08/2018 Procedure Pass [facility] Endoscopy Admitting Dept Virtual Department [address] [place] [address] Social History Tobacco Use Types Packs/Day Years [...] on filedocumented in this encounter Care Teams Paper Supervisor Relationship Specialty Start Date End Date Yeny Elizabeth NP [address] [place] [id number] PCP - General Nurse Practitioner 10/26/18 11/28/22 Dian Macias PA [address] [place] [address] [email or web address] PCP - General 07/08/22 Adolfo Andrea MD [address] [place] [address] [email or web address] Primary Oncologist Hematology and Oncology 08/02/20 Yenny Parish MD [address] [place] [id number] [email or web address] Primary Oncologist Hematology and Oncology 05/09/21 documented as of this encounter Additional Source Comments The information contained in this document represents components of the legal health record. It is not the complete legal health record.[facility]
[2025-04-27] MEDS: iohexoL 350 MG/ML 100 ML INFUS..BTL IV (17:14)
== END 2025-04-27 14:09 | disposition home or self-care (01) ==
LOC: HO.CT 14:08
PROVIDERS: PCP Nurse Practitioner Family; Visit Provider Otolaryngology
DX: R60.9 Edema, unspecified (principal); H83.8X9 Other specified diseases of inner ear, unspecified ear
CPT/HCPCS: 70480; 70491; Q9967

== ENCOUNTER → 2025-04-27 15:31 | Outpatient (BNV) | payer MEDICARE, MEDICAID, SELFPAY | PROVIDERS: PCP Nurse Practitioner Family; Visit Provider Radiology Body Imaging | DX: K11.0 Atrophy of salivary gland (principal); J32.2 Chronic ethmoidal sinusitis | CPT/HCPCS: 70480; 70491 ==

== ENCOUNTER 2025-06-02 13:06 | Outpatient (AMB) | payer MEDICARE, MEDICAID, SELFPAY ==
[2025-06-02 13:10] VITALS: BP 120/80; PULSE 86; BMI 18.7
--- NOTE | 2025-06-02 13:10 | A.OFFVIS_ITS ---
Vital Signs 06/02/25 13:10 Height 5 ft 3 in Weight 105 lb 13.15 oz BMI 18.7 BP 120/80 Blood Pressure Location Lt brachial Position Sitting Pulse 86 Intake Visit Reasons: 3m follow up Intake Note: 3 month follow-up waiting on dental(implants needed) and hip surgery hearts doing ok Coating Line Worker Required: No Allergies Penicillins (PENICILLINS) Allergy (Unknown, Verified 01/26/25 13:38) ITCHING Medication List - Last Reconciled 06/02/25 by Bryanna August NP-C atorvastatin (Lipitor) 20 mg PO BEDTIME budesonide-formoterol 160-4.5 mcg/actuation 2 puffs inhalation BID 90 days fluticasone propion-salmeterol 113-14 mcg/actuation (AirDuo RespiClick) 1 inh inhalation Q12H 30 days losartan 100 mg PO DAILY mecobalamin (vitamin B12) (B12 Active) 2,000 mcg (2 x 1,000 mcg) PO DAILY metoprolol tartrate 25 mg PO Q12H PRN 5 days nifedipine ER 30 mg PO DAILY sertraline 100 mg PO BID tramadol 50 mg PO DAILY PRN HPI HPI 3m follow up: Details: Linda is a 70-year-old female with past medical history of hyperlipidemia, hypertension, smoking, osteoarthritis right hip who was preop for hip replacement and for oral surgery who underwent cardiac evaluation as part of preop clearance and now presents for follow-up. Today she reports that she feels generally well with the exception of her hip discomfort. It limits her ability to ambulate and she uses a walker. She denies chest discomfort at rest or with activity. No shortness of breath, no PND, orthopnea or edema. No heart palpitations, lightheadedness, presyncope, syncope, falls. She says that she had 1 episode of heart palpitations in the past and that is why she was given the metoprolol to use as needed. She has not had recurrent episodes and has not needed any metoprolol. She has no dates yet for her surgical procedures. [facility] Medical History Nicotine dependence, cigarettes, uncomplicated History of mammogram Thyroid cancer ANA (obstructive sleep apnea) Pulmonary nodules COPD (chronic obstructive pulmonary disease) Surgical History History of tonsillectomy History of partial thyroidectomy History of colonoscopy (~06/08/18) Previous back surgery H/O laminectomy History of bowel resection Family History Sister Depression Brother Depression HTN (hypertension) Father HTN (hypertension) Heart disease Paternal Grandfather HTN (hypertension) Brother Heart disease Other FH: mental illness Social History Housing: House Alcohol intake: current Patient Tobacco Use Status: Current everyday Tobacco user Tobacco use type: Cigarette Cigarettes Per Day: 4 Years Smoked: (onset 15yo, 1/2-1ppd x 54yrs, now <1/4ppd - 35PYH) e-Cigarette/Vaping Use: Never Used service: No Current occupational status: retired Cognitive needs: No Hearing needs: Yes (need hearing checked) Vision needs: Yes (glasses) Review of Systems Const All systems reviewed & are unremarkable except as noted in HPI and below Denies chills, Denies fatigue, Denies fever(s), Denies frequent falls, Denies weakness, Denies weight gain and Denies weight loss ENT Denies dizziness Card Denies chest pain, Denies leg edema, Denies lightheadedness, Denies palpitations, Denies dyspnea, Denies dyspnea on exertion, Denies orthopnea and Denies other (loss of consciousness) Resp Denies cough, Denies dyspnea and Denies dyspnea on exertion GI Denies hematochezia and Denies change in stool character Musc Reports abnormal gait (uses walker), Denies muscle weakness, Denies numbness, Denies radiating pain into limb and Denies tingling Neuro Reports abnormal gait (uses walker), Denies dizziness, Denies frequent falls, Denies numbness, Denies tingling and Denies weakness Endo Denies fatigue and Denies palpitations Physical Exam Vital Signs: Last Vital Signs Pulse 86 06/02/25 13:10 BP 120/80 06/02/25 13:10 BMI result Body Mass Index 18.7 Const General: cooperative, healthy appearing, comfortable and no acute distress Orientation/consciousness: patient oriented x3 Neck Neck: Yes normal visual inspection Resp Effort & Inspection: normal respiratory effort Auscultation: clear to auscultation bilaterally, no rales, no rhonchi and no wheezes Cardio Rate: regular rate Rhythm: regular rhythm Heart sounds: S1 normal heart sound present, S2 normal heart sound present, no gallops, no murmurs and no rubs Neuro General: patient oriented x3 Extrem General: Yes normal to inspection, No no pedal edema and No calf tenderness Psych Appearance: grossly normal Mental Status: mental status grossly normal Speech and movement: Normal speech and movement present Assessment & Plan Assessment & Plan (1) CAD (coronary artery disease): Comment: severe atherosclerotic calcification of the aorta and moderate to severe calcifications of the iliofemoral vessels (CT abd pelvis 2023) Code(s): I25.10 - Atherosclerotic heart disease of [place] coronary artery without angina pectoris Category: Medical Qualifiers: Coronary Disease-Associated Artery/Lesion type: [place] artery [place] vs. transplanted heart: [place] heart Associated angina: without angina Qualified Code(s): I25.10 - Atherosclerotic heart disease of [place] coronary artery without angina pectoris Plan: History of CAD as seen on prior CT scans. Al Lung CT 12/10/2024 showed moderate coronary calcifications. Last EKG 01/20/2025 showed sinus rhythm with no acute ST or T-wave abnormalities, rate 68. Echocardiogram 02/21/2025 showed EF 65%, mild calcification of the aortic valve, moderate plaque in the ascending aorta. Nuclear stress test done 04/25/2025 showed normal myocardial perfusion imaging, EF greater than 70%. Informed her that she does have coronary artery disease, nonobstructive. Signs and symptoms of angina reviewed with her. Recommend use of aspirin 81 mg daily if no contraindications. Continue atorvastatin 20 mg daily with ideal LDL goal less than 70. Continue nifedipine and losartan for good blood pressure control. Cardiology follow-up 6 months, sooner if needed. (2) Heart palpitations: Code(s): R00.2 - Palpitations Category: Medical Plan: She reports having 1 episode of heart palpitations in the recent past. She does have PRN metoprolol to use in the event of recurrent episodes but none required. A Holter monitor done 02/20/2025 for 14 days shows sinus rhythm with average heart rate 62 beats per minute, frequent sinus bradycardia, 56.6% of the time heart rate less than 60, occasional PACs. Currently denying recurrent palpitations. (3) HTN (hypertension): Code(s): I10 - Essential (primary) hypertension Category: Medical Qualifiers: Hypertension type: primary hypertension Qualified Code(s): I10 - Essential (primary) hypertension Plan: Blood pressure goal less than 130/80. Well controlled at this time. No med changes made (4) Hyperlipidemia: Code(s): E78.5 - Hyperlipidemia, unspecified Category: Medical Plan: Martin LDL goal less than 70 in patient with CAD. She was recently restarted on atorvastatin 20 mg daily. She has upcoming PCP visit. Recommend recheck of fa sting lipid profile/LFT. (5) Preoperative cardiovascular examination: Code(s): Z01.810 - Encounter for preprocedural cardiovascular examination Category: Medical Plan: Preop for to upcoming surgical procedures including total hip replacement with [facility] and oral surgery at [facility]. Cardiac testing as above. She can proceed with these procedures with a intermediate cardiac risk. She has known CAD with no angina and normal nuclear stress testing. Continue statin and antihypertensive agents. Aspirin could be held as needed for the procedures. Call/consult Cardiology if needed. Plan Time spent on chart review, documentation, interview and assessment Coding Level of Care Code Est Pt Level 4 (88161) Complex EM visit Add On G2211 Diagnoses Coronary artery disease involving [place] coronary artery of [place] heart without angina pectoris I25.10 Coronary Disease-Associated Artery/Lesion type: [place] artery [place] vs. transplanted heart: [place] heart Associated angina: without angina Heart palpitations R00.2 Primary hypertension I10 Hypertension type: primary hypertension Hyperlipidemia E78.5 Preoperative cardiovascular examination Z01.810 Time Spent (min) 28
--- OUTSIDE RECORDS SUMMARY | 2025-06-02 15:08 | XMS_ITS | Clinical Summary ---
Author Organization [facility] Address [address] [place] [address] Phone Care Team Providers Care Elevator Tender Name Role Phone Yenny Parish MD Unavailable Dian Macias Primary Care Provider [phone] Allergies Active Allergy Reactions Criticality Noted Date [...] l 06/16/2011 Influenza, Unspecified Formulation 06/18/2016, Novel [id number], Injectable 07/30/2009 Pneumococcal polysaccharide PPSV23 06/20/2020 Td, [...] COLONOSCOPY 1998 RSV VACCINE (1 - Risk 50-74 years 1-dose series) 2003 OSTEOPOROSIS SCREENING INITIAL (ONE-TIME) 2018 PNEUMOCOCCAL VACCINES [...] EDT) SODIUM 137 133 - 146 mmol/L [facility] POTASSIUM 4.0 3.3 - 5.1 mmol/L [facility] CHLORIDE 101 96 - 108 mmol/L [facility] CO2 25 21 - 35 mmol/L [facility] BUN 10 6 - 19 mg/dL [facility] CREATININE 0.60 0.5 - 1.5 mg/dL [facility] GLUCOSE 139(H) 70 - 99 mg/dL [facility] ALBUMIN 4.5 3.9 - 4.8 g/dL [facility] TOTAL PROTEIN 7.1 6.5 - 8.0 g/dL [facility] CALCIUM 9.8 8.4 - 10.3 mg/dL [facility] ALKALINE PHOSPHATASE 94 39 - 117 U/L [facility] TOTAL BILIRUBIN <0.2 0.0 - 1.2 mg/dL [facility] AST 12 0 - 37 U/L [facility] ALT 12 0 - 40 U/L [facility] GLOBULIN 2.6 1 - 4.8 g/dL [facility] EGFR 94 >59 mL/min/1.7 3m2 [facility] Comment:Estimated glomerular filtration rate calculated using the CKD-EPI equation. ANION GAP 15 10 - 20 mmol/L [facility] Blood 10/25/2020 2:09 PM EDT 10/25/2020 2:15 PM EDT us Adolfo Andrea MD LAB BLOOD ORDERABLES Final Resul t [facility] [address] [place] [address] * ENDOSCOPY, COLON (06/08/2018 10:08 AM EDT) Narrative Transcriptions Frank Corado MD - 06/08/2018 10:08 AM EDT Patient Name: Linda Diehl Attending MD:: FRANK CORADO MD Procedure Date: 06/08/2018 10:08AM Date of : 1955 Age: 63 Admit Type: Outpatient Gender: Female Room: [place] [address] Referring MD: WILL IGLESIAS Exam Type: Colonoscopy [...] monitored continuously. The Olympus adult variable colonoscope [id number] #2 was introduced through the anus and [...] 10:08 AM Procedure Code(s): --- Professional --- 93164, Colonoscopy, flexible; diagnostic, including collection of specimen(s) by brushing or washing, when performed (separateprocedure) --- Technical --- 25824, Colonoscopy, flexible; diagnostic, including collection of specimen(s) by brushing or washing, when performed (separateprocedure) Diagnosis Code(s): --- Professional --- Z86.010, Personal history of colonic polyps --- Technical --- Z86.010, Personal history of colonic polyps CPT copyright 2016 [employer]. All rights reserved. The codes documented in this report are preliminary and upon network security engineer reviewmay be revised to meet current compliance requirements. [address] [place] [address] Yeny Elizabeth NP GI PROCEDURE ORDERABLES Final Result from Last 3 Months or Most Recently Relevant to Health Maintenance [place] [address] [place] [address] MEDICARE SUPPLEMENT [facility] MEDICARE REPLACEMENT [facility] MEDICARE SUPPLEMENT [facility] MEDICARE REPLACEMENT [address] [place] [address] MEDICARE SUPPLEMENT [facility] MEDICARE REPLACEMENT [place] [place] [address] MEDICARE SUPPLEMENT [facility] MEDICARE REPLACEMENT MEDICARE SUPPLEMENT [facility] MEDICARE REPLACEMENT [address] [place] [address] MEDICARE SUPPLEMENT [facility] MEDICARE REPLACEMENT MEDICARE SUPPLEMENT [facility] MEDICARE REPLACEMENT [place] [place] [address] MEDICARE SUPPLEMENT [facility] MEDICARE REPLACEMENT [place] [address] MEDICARE SUPPLEMENT [facility] MEDICARE REPLACEMENT [place] [id number] Care Teams Elevator Tender Relationship Specialty Start Date End Date Dian Macias PA [address] [place] [address] [email or web address] PCP - General 07/08/22 Yenny Parish MD [address] [place] [address] [email or web address] Primary Oncologist Hematology and Oncology 05/09/21 Additional Source Comments The information contained in this document represents components of the legal health record. It is not the complete legal health record.[facility]
--- OUTSIDE RECORDS SUMMARY | 2025-06-02 15:08 | XMS_ITS | Encounter Summary ---
Author Organization [facility] Address [address] [place] [address] Phone Care Team Providers Care Bead Cutter Name Role Phone Yeny Elizabeth NP Primary Care Provider [phone] Adolfo Andrea MD Unavailable Yenny Parish MD Unavailable Dian Macias Primary Care Provider [phone] Encounter Details Date Type Department Care Team (Late st Contact Info) Description 08/22/2020 Procedure Pass [facility]iology [address] [place] [address] Social History Tobacco Use Types Packs/Day Years [...] on filedocumented in this encounter Care Teams Bead Cutter Relationship Specialty Start Date End Date Yeny Elizabeth NP [address] [place] [address] [id number] PCP - General Nurse Practitioner 06/04/18 07/07/22 Dian Macias PA [address] [place] [address] [email or web address] - General 07/08/22 Adolfo Andrea MD [address] [place] [phone] [email or web address] Primary Oncologist Hematology and Oncology 08/02/20 Yenny Parish MD [address] [place] [id number] [email or web address] Primary Oncologist Hematology and Oncology 05/09/21 documented as of this encounter Additional Source Comments The information contained in this document represents components of the legal health record. It is not the complete legal health record.[facility]
--- OUTSIDE RECORDS SUMMARY | 2025-06-02 15:08 | XMS_ITS | Encounter Summary ---
Author Organization [facility] Address [address] [facility] [address] [place] [address] Phone Care Team Providers Care Technical Laboratory Asst Name Role Phone Yeny Elizabeth NP Primary Care Provider [phone] Adolfo Andrea MD Unavailable Yenny Parish MD Unavailable Dian Macias Primary Care Provider [phone] Encounter Details Date Type Department Care Team (Late st Contact Info) Description 08/31/2020 Procedure Pass [facility], Ct Scan - [address] [id number] Social History Tobacco Use Types Packs/Day Years [...] on filedocumented in this encounter Care Teams Technical Laboratory Asst Relationship Specialty Start Date End Date Yeny Elizabeth NP [address] [place] [address] PCP - General Nurse Practitioner 06/04/18 07/07/22 Dian Macias PA [address] [place] [address] [email or web address] PCP - General 07/08/22 Adolfo Andrea MD [address] [place] [address] [email or web address] Primary Oncologist Hematology and Oncology 08/02/20 Yenny Parish MD [address] [place] [phone] [email or web address] Primary Oncologist Hematology and Oncology 05/09/21 documented as of this encounter Additional Source Comments The information contained in this document represents components of the legal health record. It is not the complete legal health record.[facility]
--- OUTSIDE RECORDS SUMMARY | 2025-06-02 15:08 | XMS_ITS | Encounter Summary ---
Author Organization [facility] Address [address] [address] [place] [address] Phone Care Team Providers Care Payroll Analyst Name Role Phone Yeny Elizabeth NP Primary Care Provider [phone] Adolfo Andrea MD Unavailable Yenny Parish MD Unavailable Dian Macias Primary Care Provider [phone] Encounter Details Date Type Department Care Team (Late st Contact Info) Description 02/08/2021 Procedure Pass [facility], Ct Scan - [address] [id number] Social History Tobacco Use Types Packs/Day Years [...] on filedocumented in this encounter Care Teams Payroll Analyst Relationship Specialty Start Date End Date Yeny Elizabeth NP [address] [place] [address] PCP - General Nurse Practitioner 06/04/18 07/07/22 Dian Macias PA [address] [place] [address] [email or web address] PCP - General 07/08/22 Adolfo Andrea MD 238 [place] [address] [email or web address] Primary Oncologist Hematology and Oncology 08/02/20 Yenny Parish MD [address] [place] [phone] [email or web address] Primary Oncologist Hematology and Oncology 05/09/21 documented as of this encounter Additional Source Comments The information contained in this document represents components of the legal health record. It is not the complete legal health record.[facility]
--- OUTSIDE RECORDS SUMMARY | 2025-06-02 15:08 | XMS_ITS | Encounter Summary ---
Author Organization [facility] Address [address] [place] [address] Phone Care Team Providers Care Criminal Investigative Agent Name Role Phone Yeny Elizabeth NP Primary Care Provider [phone] Adolfo Andrea MD Unavailable Yenny Parish MD Unavailable Dian Macias Primary Care Provider [phone] Encounter Details Date Type Department Care Team (Late st Contact Info) Description 08/20/2020 Procedure Pass [facility] [address] [place] [address] Social History Tobacco Use Types Packs/Day Years [...] on filedocumented in this encounter Care Teams Criminal Investigative Agent Relationship Specialty Start Date End Date Yeny Elizabteh NP [address] [place] [address] [phone] PCP - General Nurse Practitioner 06/04/18 07/07/22 Dian Macias PA [address] [place] [address] [email or web address] - General 07/08/22 Adolfo Andrea MD [address] [place] [phone] [email or web address] Primary Oncologist Hematology and Oncology 08/02/20 Yenny Parish MD [address] [place] [phone] [email or web address] Primary Oncologist Hematology and Oncology 05/09/21 documented as of this encounter Additional Source Comments The information contained in this document represents components of the legal health record. It is not the complete legal health record.[facility]
--- OUTSIDE RECORDS SUMMARY | 2025-06-02 15:08 | XMS_ITS | Encounter Summary ---
Author Organization [facility] Address [address] [facility] [address] [place] [address] Phone Care Team Providers Care Personnel Arbitrator Name Role Phone Yeny Elizabeth NP Primary Care Provider [phone] Adolfo Andrea MD Unavailable Yenny Parish MD Unavailable Dian Macias Primary Care Provider [phone] Reason for Referral * MRI/CAT Scan - Closed Specialty Diagnoses / Procedures Referred By Contac t Referred To Contact Radiology Diagnoses Hepatomegaly, not elsewhere classified Procedures MRI Abdomen Yeny Elizabeth NP Phone: tel: Referral ID Status Reason Start Date Expiration Date Visits Re quested Visits Authorized [id number] Closed 07/10/2020 07/10/2021 1 1 * MRI/CAT Scan - Closed Specialty Diagnoses / Procedures Referred By Contac t Referred To Contact Radiology Diagnoses Multiple nodules of lung Other nonspecific abnormal finding of lung field Procedures CT Chest Yeny Elizabeth NP Phone: tel: Referral ID Status Reason Start Date Expiration Date Visits Re quested Visits Authorized [id number] Closed 07/10/2020 07/10/2021 1 1 Encounter Details Date Type Department Care Team (Late st Contact Info) Description 07/10/2020 Transcribe Orders [facility] Department [address] [place] [address] Yeny Elizabeth NP [address] [place] [address] Multiple nodules of lung (Primary Dx); Other [...] other upper abdominal pathology is apparent. POS [id number] Narrative 07/19/2020 11:37 AM EST TECHNIQUE: 1.5 [...] other upper abdominal pathology is apparent. POS [id number] Yeny Elizabeth NP IMG MR ABDOMEN Final [...] nodule consistent with an adenoma. Yeny Elizabeth POLYMERIZATION KETTLE OPERATOR IMG CT CHEST Final Result documented in this encounter Visit Diagnoses Diagnosis Multiple nodules of lung- Primary Other nonspecific abnormal finding of lung field Hepatomegaly, not elsewhere classified Hepatomegaly, not elsewhere classified Multiple nodules of lung Other nonspecific abnormal finding of lung field documented in this encounter Care Teams Personnel Arbitrator Relationship Specialty Start Date End Date Yeny Elizabeth NP [address] [place] [address] PCP - General Nurse Practitioner 06/04/18 07/07/22 Dian Macias PA [address] [place] [address] [email or web address] PCP - General 07/08/22 Adolfo Andrea MD [address] [place] [address] [email or web address] Primary Oncologist Hematology and Oncology 08/02/20 Yenny Parish MD [address] [place] [address] [email or web address] Primary Oncologist Hematology and Oncology 05/09/21 documented as of this encounter Additional Source Comments The information contained in this document represents components of the legal health record. It is not the complete legal health record.[facility]
--- OUTSIDE RECORDS SUMMARY | 2025-06-02 15:08 | XMS_ITS | Encounter Summary ---
Author Organization [facility] Address [address] [facility] [address] [address] [place] [address] Phone Care Team Providers Care Cull Grader Name Role Phone eYny Elizabeth NP Primary Care Provider [phone] Adolfo Andrea MD Unavailable Yenny Parish MD Unavailable Dian Macias Primary Care Provider [phone] Encounter Details Date Type Department Care Team (Late st Contact Info) Description 07/10/2020 Procedure Pass [facility], [address] [address] Social History Tobacco Use Types Packs/Day Years [...] on filedocumented in this encounter Care Teams Cull Grader Relationship Specialty Start Date End Date Yeny Elizabeth SPECIAL EDUCATION TEACHER [address] [place] [address] PCP - General Nurse Practitioner 06/04/18 07/07/22 Dian Macias PA [address] [place] [address] [email or web address] PCP - General 07/08/22 Adolfo Andrea MD [address] [place] [phone] [email or web address] Primary Oncologist Hematology and Oncology 08/02/20 Yenny Parish MD [address] [place] [address] [email or web address] Primary Oncologist Hematology and Oncology 05/09/21 documented as of this encounter Additional Source Comments The information contained in this document represents components of the legal health record. It is not the complete legal health record.[facility]
--- OUTSIDE RECORDS SUMMARY | 2025-06-02 15:08 | XMS_ITS | Encounter Summary ---
Author Organization [facility] Address [address] [facility] [place] [address] Phone Care Team Providers Care Chief Investigator Name Role Phone Yeny Elizabeth NP Primary Care Provider [phone] Adolfo Andrea MD Unavailable Yenny Parish MD Unavailable Dian Macias Primary Care Provider [phone] Encounter Details Date Type Department Care Team (Late st Contact Info) Description 08/31/2020 Procedure Pass [facility], Ct Scan - [address] [id number] Social History Tobacco Use Types Packs/Day Years [...] on filedocumented in this encounter Care Teams Chief Investigator Relationship Specialty Start Date End Date Yeny Elizabeth NP [address] [place] [address] PCP - General Nurse Practitioner 06/04/18 07/07/22 Dian Macias PA [address] [place] [address] [email or web address] PCP - General 07/08/22 Adolfo Andrea MD [address] [place] [address] [email or web address] Primary Oncologist Hematology and Oncology 08/02/20 Yenny Parish MD [address] [place] [phone] [email or web address] Primary Oncologist Hematology and Oncology 05/09/21 documented as of this encounter Additional Source Comments The information contained in this document represents components of the legal health record. It is not the complete legal health record.[facility]
--- OUTSIDE RECORDS SUMMARY | 2025-06-02 15:08 | XMS_ITS | Encounter Summary ---
Author Organization [facility] Address [address] [facility] [address] [place] [address] Phone Care Team Providers Care Interventional Nurse Name Role Phone Yeny Elizabeth NP Primary Care Provider [phone] Adolfo Andrea MD Unavailable Yenny Parish MD Unavailable Dian Macias Primary Care Provider [phone] Encounter Details Date Type Department Care Team (Late st Contact Info) Description 01/21/2021 Procedure Pass [facility], Ct Scan - [address] [id number] Social History Tobacco Use Types Packs/Day Years [...] on filedocumented in this encounter Care Teams Interventional Nurse Relationship Specialty Start Date End Date Yeny Elizabeth NP [address] [place] [address] PCP - General Nurse Practitioner 06/04/18 07/07/22 Dian Macias PA [address] [place] [address] [email or web address] PCP - General 07/08/22 Adolfo Andrea MD [address] [place] [address] [email or web address] Primary Oncologist Hematology and Oncology 08/02/20 Yenny Parish MD [address] [place] [phone] [email or web address] Primary Oncologist Hematology and Oncology 05/09/21 documented as of this encounter Additional Source Comments The information contained in this document represents components of the legal health record. It is not the complete legal health record.[facility]
--- OUTSIDE RECORDS SUMMARY | 2025-06-02 15:08 | XMS_ITS | Clinical Summary ---
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; Parotid swelling - RULED OUT 03/31/2025 Orders Only [facility] [address] [place] [address] [place] [address] Salvador Tarango MD Sensorineural hearing loss (SNHL), bilateral (Primary Dx) 03/15/2025 1:15 PM EDT Clinical Support [facility] [address] [address] Thao Barksdale Au.D Sensorineural hearing loss, bilateral (Primary Dx) 03/15/2025 1:00 PM EDT Office Visit [facility] [address] [address] Salvador Tarango MD Sensorineural hearing [...] Orientation Not on file Plan of Treatment Health Maintenance Due Date [...] ( season) 2025 09/24/2020, 09/03/2020 RSV Vaccine 50 years and older and Patients (1 - 1-dose 75+ series) 2028 Hepatitis B Vaccines Aged Out No long er eligible based on patient's age to complete this topic Procedures Procedure Name Priority Date/Time Associated Diagnosis Comments [place] COMPRE AUDIOMETRY THRESHOLD EVAL SP RECOGNIJ Routine 03/15/2025 1:15 PM EDT Sensorineural hearing loss, bilateral from Last 3 Months Results * Audiometry (03/15/2025 1:15 PM EDT) Thao Israel Au.D - 03/15/2025 1:15 PM EDT Tanya Carey 03/15/2025 1:38 PM Salvador Tarango MD AUDIOLOGY SERVICES ORDERABLES Final Result from Last 3 Months Insurance [facility] Care Teams Radiator Specialist Relationship Specialty Start Date End Date Rosa M Mason APRN [address] [place] [phone] PCP - General Family Medicine 03/15/25
--- OUTSIDE RECORDS SUMMARY | 2025-06-02 15:09 | XMS_ITS | Encounter Summary ---
Author Organization [facility] Address [address] [facility] [address] [facility] [address] [place] [address] Phone Care Team Providers Care Mechanical Adjuster Name Role Phone Yeny Elizabeth NP Primary Care Provider Adolfo Andrea MD Unavailable Yenny Parish MD Unavailable Dian Macias Primary Care Provider [phone] Encounter Details Date Type Department Care Team (Late st Contact Info) Description 07/10/2020 Procedure Pass [facility], Ct Scan - [address] [address] Social History Tobacco Use Types Packs/Day Years [...] on filedocumented in this encounter Care Teams Mechanical Adjuster Relationship Specialty Start Date End Date Yeny Elizabeth NP [address] [place] [address] PCP - General Nurse Practitioner 06/04/18 07/07/22 Dian Macias PA [address] [place] [address] [email or web address] PCP - General 07/08/22 Adolfo Andrea MD [address] [place] [address] [email or web address] Primary Oncologist Hematology and Oncology 08/02/20 Yenny Parish MD [address] [place] [phone] [email or web address] Primary Oncologist Hematology and Oncology 05/09/21 documented as of this encounter Additional Source Comments The information contained in this document represents components of the legal health record. It is not the complete legal health record.[facility]
--- OUTSIDE RECORDS SUMMARY | 2025-06-02 15:09 | XMS_ITS | Encounter Summary ---
Author Organization [facility] Address [address] [facility] [address] [place] [address] Phone Care Team Providers Care Sports Management Intern Name Role Phone Yeny Elizabeth NP Primary Care Provider [phone] Adolfo Andrea MD Unavailable Yenny Parish MD Unavailable Dian Macias Primary Care Provider [phone] Reason for Referral * MRI/CAT Scan - Closed Specialty Diagnoses / Procedures Referred By Contac t Referred To Contact Radiology Diagnoses Abdominal pain, unspecified abdominal location Procedures CT Abdomen/Pelvis Peyton Goodwin NP [address] [place] [address] Phone: tel: fax: [address] Phone: tel: Referral ID Status Reason Start Date Expiration Date Visits Re quested Visits Authorized [id number] Closed 06/21/2020 06/21/2021 1 1 Encounter Details Date Type Department Care Team (Late st Contact Info) Description 06/21/2020 Transcribe Orders [facility] Department [address] [place] [address] Peyton Goodwin NP [address] [place] [address] [phone] Abdominal pain, unspecified abdominal location (Primary Dx) [...] location documented in this encounter Care Teams Sports Management Intern Relationship Specialty Start Date End Date Yeny Elizabeth NP [address] [place] [address] PCP - General Nurse Practitioner 06/04/18 07/07/22 Dian Macias PA [address] [place] [address] PCP - General 07/08/22 Adolfo Andrea MD [address] [place] [phone] [email or web address] Primary Oncologist Hematology and Oncology 08/02/20 Yenny Parish MD [address] [place] [address] [email or web address] Primary Oncologist Hematology and Oncology 05/09/21 documented as of this encounter Additional Source Comments The information contained in this document represents components of the legal health record. It is not the complete legal health record.[facility]
--- OUTSIDE RECORDS SUMMARY | 2025-06-02 15:09 | XMS_ITS | Encounter Summary ---
Author Organization [facility] Address [address] [facility] [address] [place] [address] Phone Care Team Providers Care Adaptive Physical Education Specialist Name Role Phone Yeny Elizabeth NP Primary Care Provider [phone] Adolfo Andrea MD Unavailable Yenny Parish MD Unavailable Dian Macias Primary Care Provider [phone] Encounter Details Date Type Department Care Team (Late st Contact Info) Description 06/21/2020 Procedure Pass [facility], Ct Scan - [address] [address] Social History Tobacco Use Types Packs/Day Years [...] on filedocumented in this encounter Care Teams Adaptive Physical Education Specialist Relationship Specialty Start Date End Date Yeny Elizabeth NP [address] [place] [address] PCP - General Nurse Practitioner 06/04/18 07/07/22 Dian Macias PA [address] [place] [address] [email or web address] PCP - General 07/08/22 Adolfo Andrea MD [address] [place] [address] [email or web address] Primary Oncologist Hematology and Oncology 08/02/20 Yenny Parish MD [address] [place] [phone] [email or web address] Primary Oncologist Hematology and Oncology 05/09/21 documented as of this encounter Additional Source Comments The information contained in this document represents components of the legal health record. It is not the complete legal health record.[facility]
--- OUTSIDE RECORDS SUMMARY | 2025-06-02 15:09 | XMS_ITS | Encounter Summary ---
Author Organization [facility] Address [address] [facility] [address] [place] [address] Phone Care Team Providers Care Automatic Pad Making Machine Operator Name Role Phone Yeny Elizabeth NP Primary Care Provider [phone] Adolfo Andrea MD Unavailable Yenny Parish MD Unavailable Dian Macias Primary Care Provider [phone] Encounter Details Date Type Department Care Team (Late st Contact Info) Description 06/08/2018 Procedure Pass [facility] Endoscopy Admitting Dept Virtual Department [address] [place] [address] Social History Tobacco Use Types Packs/Day Years [...] on filedocumented in this encounter Care Teams Automatic Pad Making Machine Operator Relationship Specialty Start Date End Date Yeny Elizabeth NP [address] [place] [address] PCP - General Nurse Practitioner 10/26/18 11/28/22 Dian Macias PA [address] [place] [address] [email or web address] PCP - General 07/08/22 Adolfo Andrea MD [address] [place] [address] [email or web address] Primary Oncologist Hematology and Oncology 08/02/20 Yenny Parish MD [address] [place] [phone] [email or web address] Primary Oncologist Hematology and Oncology 05/09/21 documented as of this encounter Additional Source Comments The information contained in this document represents components of the legal health record. It is not the complete legal health record.[facility]
== END 2025-06-02 13:42 | disposition home or self-care (01) ==
PROVIDERS: PCP Nurse Practitioner Family; Visit Provider Nurse Practitioner Family
DX: I25.10 Atherosclerotic heart disease of native coronary artery without angina pectoris (principal); R00.2 Palpitations; I10 Essential (primary) hypertension; E78.5 Hyperlipidemia, unspecified; Z01.810 Encounter for preprocedural cardiovascular examination
CPT/HCPCS: 99214; G2211

== ENCOUNTER → 2025-06-02 13:06 | Outpatient (BNVA) | payer MEDICARE, OTHER, SELFPAY | PROVIDERS: PCP Nurse Practitioner Family; Visit Provider Nurse Practitioner Family | DX: I25.10 Atherosclerotic heart disease of native coronary artery without angina pectoris (principal); Z72.0 Tobacco use; Z01.810 Encounter for preprocedural cardiovascular examination; I10 Essential (primary) hypertension; R00.2 Palpitations; E78.5 Hyperlipidemia, unspecified; I25.84 Coronary atherosclerosis due to calcified coronary lesion | CPT/HCPCS: 99212 ==

== ENCOUNTER 2025-06-22 12:19 | Outpatient (AMB) | payer MEDICARE, MEDICAID, SELFPAY ==
--- NOTE | 2025-06-22 12:26 | MHC.PC.OV ---
Vital Signs 06/22/25 12:30 Height 5 ft 3 in Weight 103 lb BMI 18.2 BP 136/84 Blood Pressure Location Rt brachial Position Sitting Respiration 16 Pulse 90 Pulse Source Pulse Oximeter Temp 97.6 F Temp Source Oral Pulse Oximetry (%) 97 Oxygen Delivery Method Room Air Intake Visit Reasons: 30 min routine complex fu RE Intake Note: Follow up Data Processing Consultant Required: No Allergies Penicillins (PENICILLINS) Allergy (Unknown, Verified 06/22/25 12:40) ITCHING Medication List - Last Reconciled 06/22/25 by Rosa M Mason, TIN WORKER- atorvastatin (Lipitor) 20 mg PO BEDTIME budesonide-formoterol 160-4.5 mcg/actuation 2 puffs inhalation BID 90 days fluticasone propion-salmeterol 113-14 mcg/actuation (AirDuo RespiClick) 1 inh inhalation Q12H 30 days losartan 100 mg PO DAILY mecobalamin (vitamin B12) (B12 Active) 2,000 mcg (2 x 1,000 mcg) PO DAILY metoprolol tartrate 25 mg PO Q12H PRN 5 days nifedipine ER 30 mg PO DAILY sertraline 100 mg PO BID tramadol 50 mg PO DAILY PRN Tobacco use date assessed: 06/22/25 Fall risk assessment: 2 + Falls in past year Last assessed Fall Risk: 06/22/25 Dental Screening Dental Screen Date: 01/20/25 HPI HPI Comments History of Present Illness Details 70 y/o f with benign lipid adenoma bilat, R renal cyst, uterine fibroid, severe atherosclerotic calcification of the aorta and moderate to severe calcifications of the iliofemoral vessels (CT abd pelvis 01/2024), spinal DJD, bilat lung nodule, current smoker, COPD, thyroid ca, ANA, HTN, hx of renal stones, MDD , osteopenia, s/p L arm fracture, b 12 def s/p hemithyroidectomy 2020, bowel resection, S/p bilat CTS, Multiple teeth extractions Fmhx: Mom brain ca 29, dad mi 62, brother skin ca, sister CVA, Sz 55, family hx of etoh abuse, sister of etoh abuse sp liver transplants Health Maintenance: DME: Using Walker Mammo 10/2024 DEXA 10/2024 Osteopenia Flu 04/2025 Tdap 04/2025 Specialist lung ca screening Pulm 01/26/2025 pulm clearance given Endo @ [facility] 12/2024 needs R Hip placement ENT in [place] >> referred to Dr HAILE in [place] History of Present Illness The patient is a 70-year-old female presenting for a routine complex disease management visit and pre-operative clearance for a right hip replacement. 01/26/2025 pulm clearance given 05/2025 cards clearance Osteoarthritis of the right hip: - The patient is scheduled for a right hip replacement and has received clearance from cardiology and pulmonology. - She reports constant hip pain, which affects her sleep and ability to walk, leading to social isolation and difficulty with self-care. - The patient is waiting for the surgeon's office to contact her for scheduling. Surgery Type: R hip Anesthesia Type: General Surgeon: Dr Villa Date: TBD Any past surgical procedures: Y Any complications from anesthesia or in post-op period: Denies ASA or NSAID Use: daily ASA Current smoker: Yes Alcohol use: Denies Drug use: Denies METs: < 4: vacuuming, ALD, eating, dressing Medical history: Asthma N COPD Y Obesity BMI 18.2 Diabetes N IN < 6 weeks, unstable angina, CHF, severe valve disease No Patulous Eustachian tube: - The patient has been experiencing ear symptoms, including a sensation of her ears being plugged and unplugged, which affects her balance and speech. - She was seen by an ENT, Dr. Tarango, who performed a nasal endoscopy and diagnosed her with patulous Eustachian tube, noting the tubes are always open and do not collapse normally. - A head and neck CT was also performed, but results were not available. - Dr. Tarango has recommended a referral to a specialist, Dr. Fabian Haile, for further management. Dental Issues: - The patient requires extensive dental work, which is costly. - She is considering the timing of her dental surgery in relation to her hip replacement, noting a required three-month wait after dental work for the hip surgery, or a six-month wait for dental work after hip surgery. Coronary artery disease and Hyperlipidemia: - These conditions are co-managed by cardiology. - She takes atorvastatin 20 mg daily, which was added by cardiology in May. - She reports occasional palpitations and has metoprolol 25 mg as needed, which was prescribed after an ER visit, but she has not taken it. Hypertension: - The patient takes nifedipine 30 mg daily and losartan 100 mg daily. - In the past, her nifedipine was titrated down from 90 mg to 30 mg, and labetalol was discontinued. Chronic Obstructive Pulmonary Disease (COPD): - The patient is a current smoker and uses budesonide-formoterol. - Her condition is co-managed by pulmonology. - Cont to smoke Social History: - The patient feels very isolated and finds navigating her terminologist to be difficult. - She has self-referred for extra support at home through an agency formerly known as [employer]. - Due to her mobility issues, she is considering moving as she feels she can no longer manage her house. Immunizations: - The patient reports receiving her flu shot, an updated COVID-19 vaccine, and a Tdap vaccine on April 25. Past Medical History - Coronary Artery Disease - Hyperlipidemia - Hypertension - Chronic Obstructive Pulmonary Disease - Tobacco use: Current smoker - Osteoarthritis of the right hip - Patulous Eustachian tube - Procedures: Nasal endoscopy, Head and Neck CT Review of Systems - Constitutional: Reports irritability secondary to ear symptoms. Reports feeling incredibly isolated. - HEENT: Reports ears feeling plugged and unplugged throughout the day. - Cardiovascular: Reports occasional palpitations. Denies breathlessness. - Musculoskeletal: Reports constant right hip pain and inability to walk easily. - Neurological: Reports impaired balance and speech secondary to ear symptoms. - Psychiatric: Reports her quality of life has been interrupted. - Skin/Extremities: Denies ankle swelling. Physical Exam General: Well developed, well nourished, in no acute distress. Appears stated age. Frail Head: Normocephalic, atraumatic. Eyes: Pupils are equal, round and reactive to light and accommodation. Conjunctivae are clear. Lungs: Clear to auscultation bilaterally. No rales, rhonchi or wheeze noted. Good air flow in all [place]. Heart: Regular rate, occasional ectopy, . No murmurs, click, rubs or gallops are noted. Musculoskeletal: Joints are nontender, without swelling, redness, or effusions. Pulses: Peripheral pulses are equal and palpable bilaterally. Extremities: No clubbing, cyanosis nor edema is noted. Antalgic gait, using walker Psych: Mood and affect appropriate. Results - Imaging: A Head and Neck CT was performed; results are pending. - Procedures: An in-office nasal endoscopy revealed patulous Eustachian tubes that do not collapse normally. Medical Decision Making The patient is a 70-year-old female with multiple, stable chronic conditions who presents for a complex disease management visit. The primary goal of this visit was to provide pre-operative clearance for her scheduled right hip replacement, as her quality of life is severely impacted by constant hip pain, limited mobility, and resultant social isolation. She has already been cleared by cardiology and pulmonology. To expedite the process, an urgent message was sent to her surgeon, Dr. Villa, confirming her clearance to proceed with surgery. Another significant issue is her Eustachian tube dysfunction, diagnosed as patulous Eustachian tube by her ENT, which is causing disruptive symptoms affecting her balance and speech. She has been appropriately referred to a sub-specialist, Dr. Haile, for further evaluation and management, which is pending her scheduling. Her chronic conditions, including hypertension, hyperlipidemia, and COPD, are stable on her current medication regimen, which is co-managed with cardiology and pulmonology. Given her struggles with household management and activities of daily living, she was referred to meet with our community navigation specialist for additional resources and support. Her immunization records were also updated to reflect her recent influenza and COVID-19 vaccinations. The plan is for her to follow up in October for her annual wellness exam. Plan 1. Osteoarthritis Of Right Hip /Pre-Op clearance - The patient is cleared to proceed with her right hip replacement. - An urgent message was sent to her surgeon, Dr. Villa, to inform them of her clearance and to facilitate scheduling. Education Aspirin and NSAIDS should be discontinued one week before surgery to prevent excessive bleeding. If you are a smoker, there is increase risk of post surgical complications. Cessation is encouraged. Follow up with surgeon and all recommendations pre and post operatively. 2. Patulous Eustachian Tube - This remains a work in progress. - The patient will follow up with Dr. Fabian Haile, an ENT sub-specialist, as recommended by Dr. Tarango. 3. Essential Hypertension - Continue current regimen of nifedipine 30 mg daily and losartan 100 mg daily. 4. Hyperlipidemia/CAD - Continue atorvastatin 20 mg daily as prescribed by cardiology. - Continue metoprolol 25 mg as needed for occasional palpitations. 5. Chronic Obstructive Pulmonary Disease - Continue budesonide-formoterol as prescribed. - Smoking cessation encouraged 6. Health Maintenance - The patient's immunization record was updated to include her recent flu and COVID-19 vaccinations. - The patient was referred to the community navigation specialist, Marin, for resources on additional home support. - Return to the office in October for an annual wellness exam, and sooner as needed. Patient Instructions - You are cleared for your hip surgery. We have sent a message to your surgeon's office, and they should contact you soon to schedule it. - You need to make an appointment with the agricultural researcher, Dr. Fabian Haile, for your ongoing ear issues. - Continue taking your current medications for blood pressure, cholesterol, and COPD as they have been prescribed. - Today, please meet with Marin, our community water resource consultant, who may be able to help you find more support and help at home. - Plan to return to our office in October for your yearly wellness exam, or call us sooner if any new problems arise. Consent Patient was informed and verbally consented to the use of an ambient scribe for clinic note documentation during this visit. Total time spent caring for the patient today was 45 minutes. This includes time spent before the visit reviewing the chart, time spent during the visit, and time spent after the visit on documentation, reviewing laboratory results, diagnostic imaging, medications, performing a medically necessary evaluation, counseling on diagnoses, care coordination, ordering appropriate tests, ordering appropriate medications, review of tests performed by other providers, reporting test results with the patient, communication with other healthcare providers. [facility] Medical History Nicotine dependence, cigarettes, uncomplicated History of mammogram Thyroid cancer ANA (obstructive sleep apnea) Pulmonary nodules COPD (chronic obstructive pulmonary disease) Surgical History History of tonsillectomy History of partial thyroidectomy History of colonoscopy (~06/08/18) Previous back surgery H/O laminectomy History of bowel resection Family History Sister Depression Brother Depression HTN (hypertension) Father HTN (hypertension) Heart disease Paternal Grandfather HTN (hypertension) Brother Heart disease Other FH: mental illness Social History Housing: House Alcohol intake: current Patient Tobacco Use Status: Current everyday Tobacco user Tobacco use type: Cigarette Cigarettes Per Day: 4 Years Smoked: (onset 15yo, 1/2-1ppd x 54yrs, now <1/4ppd - 35PYH) e-Cigarette/Vaping Use: Never Used service: No Current occupational status: retired Cognitive needs: No Hearing needs: Yes (need hearing checked) Vision needs: Yes (glasses) Questionnaire Thrive Questionnaire Date Thrive assessed: 09/13/24 I am a: Patient What is your living situation today?: I have a steady place to live Within the past 12 months, did the food you bought not last and you didn't have the money to get more?: Never true Within the past 12 months, did you worry whether your food would run out before you got money to buy more?: Never true Do you have trouble paying for medicines?: Yes Do you have trouble getting transportation to medical appointments?: No Do you have trouble paying your heating and electricity bill?: Yes Do you have trouble taking care of your child, family member or friend?: No Do you have trouble with day-to-day activities such as bathing, preparing meals, shopping, managing finances, etc.?: I choose not to answer this question Are you currently unemployed and looking for a job?: No Are you interested in more education?: Yes Please select the resources that you would like help with: Paying for medicine Currently or been in a relationship where the following occur: No concerns reported THRIVE Score: 1 AUDIT C Alcohol Use Questionnaire (AUDIT-C) 1. How often do you have a drink containing alcohol?: 2-3 times a week 2. How many drinks containing alcohol do you have on a typical day when you are drinking?: 1 or 2 3. How often do you have six or more drinks on one occasion?: Never Total Score: 3 VIGNESH-7 AMB Questionnaire VIGNESH-7 Date VIGNESH - 7 assessed: 11/10/24 Source: Developed by Drs. Robert Rothman, Alexandria Frausto, Cristino Miller and colleagues, with an educational susy from [employer]. Physical exam (Primary Care) Vital Signs: Last Vital Signs Temp 97.6 F 06/22/25 12:30 Pulse 90 06/22/25 12:30 Resp 16 06/22/25 12:30 BP 136/84 06/22/25 12:30 Pulse Ox 97 06/22/25 12:30 Oxygen Delivery Method Room Air 06/22/25 12:30 BMI result Body Mass Index 18.2 Tobacco/Smoking Status: Tobacco use Status Tobacco use date assessed 06/22/25 06/22/25 12:32 Patient Tobacco Use Status Current everyday Tobacco 06/22/25 12:28 Tobacco use type Cigarette 06/22/25 12:28 e-Cigarette/Vaping Use Never Used 06/22/25 12:28 Are you ready to quit: No Tobacco cessation counseling provided: Yes Items discussed: Nicotine replacement, QuitWorks and Other Relapse Prevention: discussed the importance of a supportive environment, discussed extending NRT, discussed negative mood or depression after quitting, weight gain after smoking is common and discussed dietary, exercise and/or lifestyle changes Number of minutes spent counselin CPT code: 51456 - 4-10 Minutes Thrive Assessment: Date of Thrive Assessment Date Thrive assessed 09/13/24 06/22/25 12:28 Currently or been in a relationship where the following occur: No concerns reported Results Reviewed Results Reviewed: Laboratory 04/25/25 Result Units Range Interpretation Provider Comments Sodium Level 141 mmol/L (135-145) Potassium Level 3.6 mmol/L (3.3-5.1) Chloride Level 105 mmol/L (96-108) Carbon Dioxide Level 29 mmol/L (22-29) Anion Gap 11 (12-20) Low Blood Urea Nitrogen 9 mg/dL (9-16) Creatinine 0.54 mg/dL (0.5-1.4) Estimated Creatinine Clearance Calc Not Reportable Estimat Glomerular Filtration Rate > 60 Random Glucose 97 mg/dL (60-115) Calcium Level 9.7 mg/dL (8.4-10.2) Total Bilirubin 0.4 mg/dL (0.0-1.0) Aspartate Amino Transf (AST/SGOT) 28 U/L (5-31) Alanine Aminotransferase (ALT/SGPT) 26 U/L (0-31) Alkaline Phosphatase 91 U/L (39-117) Total Protein 7.4 g/dL (6.5-8.0) Albumin 4.8 g/dL (3.5-5.0) Vitamin B12 Level 696 pg/mL (200-900) Folate 9.3 ng/mL (> or = 4.0) EXAMINATION: CT INTERNAL AUDITORY CANALS WITHOUT CONTRAST CLINICAL INFORMATION: Semicircular canal dehiscence syndrome COMPARISON: None available. TECHNIQUE: Contiguous axial imaging was performed from the skull base to vertex was obtained without administration of intravenous contrast. This CT examination was performed using dose optimization techniques as appropriate, variously including the following: *Automated exposure control *Adjustment of mA and/or kV according to patient size (this includes techniques or standardized protocols for targeted exams where dose is matched to indication/reason for exam; i.e. extremities or head) *Use of iterative reconstruction technique FINDINGS: Right: External auditory canal is clear. Mastoid air cells and middle ear cavity are clear. Ossicles appear intact. Sharp scutum. The facial nerve canal follows normal course and appears covered by bone. Semicircular canals are covered by bone. Cochlea appears normal. Vestibular aqueduct is not enlarged. Left: External auditory canal is clear. Mastoid air cells and middle ear cavity are clear. Ossicles appear intact. Sharply scutum. The facial nerve canal follows normal course and appears covered by bone. Semicircular canals are covered by bone. Cochlea appears normal. Vestibular aqueduct is not enlarged. Paranasal sinuses: Minor mucosal thickening of the ethmoid air cells and right maxillary sinus. Temporomandibular joints: Intact CT/CT internal auditory canals BI IMPRESSION: Unremarkable examination. No CT evidence of semicircular canal dehiscence seen. [place] [id number] CT Scan Report Signed Patient: Linda Diehl MR#: [id number] : 1955 Acct:[id number] Age/Sex: 70 / F ADM Date: 04/27/25 Loc: HO.CT Attending Dr: Salvador Tarango MD Ordering Physician: Salvador Tarango MD Date of Service: 04/27/25 Procedure(s): CT soft tissue neck w IV con Accession Number(s): [id number] cc: Salvador Tarango MD; Rosa M Mason [facility] Report Number: [id number]: Total DLP = 470.20 mGy-cm Reason for Exam: EDEMA EXAMINATION: CT SOFT TISSUE NECK WITH CONTRAST CLINICAL INFORMATION: Edema COMPARISON: None available. TECHNIQUE: Following the intravenous administration of 60 cc of Omnipaque 350 intravenous contrast, helical imaging was performed in the axial plane with generation of coronal and sagittal reformatted images. This CT examination was performed using dose optimization techniques as appropriate, variously including the following: *Automated exposure control *Adjustment of mA and/or kV according to patient size (this includes techniques or standardized protocols for targeted exams where dose is matched to indication/reason for exam; i.e. extremities or head) *Use of iterative reconstruction technique FINDINGS: Streak artifacts from patient's dental fillings limit evaluation. ORBITS/BRAIN: Evidence of lens replacement of bilateral orbital globes. Included portions of the brain are unremarkable. PARANASAL SINUSES: Clear. LYMPH NODES: No cervical lymphadenopathy is identified. NECK SPACES: Pharynx/larynx appear symmetric and with normal appearance. SALIVARY GLANDS: Atrophic appearance of the right parotid gland in comparison to the left side. Symmetrical and normal appearance of the submandibular glands. THYROID GLAND: Status post right thyroidectomy. No nodules in the left thyroid gland. VASCULATURE: Major neck vessels are patent. Atherosclerotic disease with calcifications at the level of bilateral carotid bifurcations. BONES AND SOFT TISSUES: Degenerative changes of the cervical spine. Overlying soft tissues are unremarkable, without focal areas of edema. LUNGS: Centrilobular emphysema. Multiple bilateral pulmonary nodules are cavitated, for example 0.6 cm in the left upper lobe (7:261/428). CT/CT soft tissue neck w IV con IMPRESSION: 1. Location of clinical concern of edema is not provided. No focal areas of soft tissue edema. 2. Atrophic appearance of the right parotid gland. 3. Multiple and bilateral cavitated pulmonary nodules measuring up to 0.6 cm. If no prior chest CT study is available, recommend chest CT for better evaluation. Coding Level of Care Code Est Pt Level 5 (66796) Complex EM visit Add On G2211 Diagnoses Dysfunction of both eustachian tubes H69.83 Laterality: bilateral Coronary artery disease involving [place] coronary artery of [place] heart without angina pectoris I25.10 Associated angina: without angina Coronary Disease-Associated Artery/Lesion type: [place] artery [place] vs. transplanted heart: [place] heart Osteopenia, unspecified location M85.80 Osteopenia location: unspecified Primary hypertension I10 Hypertension type: primary hypertension B12 deficiency E53.8 Hyperlipidemia E78.5 Nicotine dependence, cigarettes, uncomplicated F17.210 ANA (obstructive sleep apnea) G47.33 Pre-op exam Z01.818 Additional Codes Vital Signs *Quality* - CPT code: 38815 - 4-10 Minutes ([id number]) Assessment & Plan Assessment & Plan (1) Eustachian tube dysfunction: Comment: Patulous Eustachian active w/ ENT in [place] referred to Dr HAILE in [place], [place] Code(s): H69.80 - Other specified disorders of Eustachian tube, unspecified ear Category: Medical Qualifiers: Laterality: bilateral Qualified Code(s): H69.83 - Other specified disorders of Eustachian tube, bilateral (2) CAD (coronary artery disease): Comment: severe atherosclerotic calcification of the aorta and moderate to severe calcifications of the iliofemoral vessels (CT abd pelvis 2023) Code(s): I25.10 - Atherosclerotic heart disease of [place] coronary artery without angina pectoris Category: Medical Qualifiers: Associated angina: without angina Coronary Disease-Associated Artery/Lesion type: [place] artery [place] vs. transplanted heart: [place] heart Qualified Code(s): I25.10 - Atherosclerotic heart disease of [place] coronary artery without angina pectoris (3) Osteopenia: Comment: DEXA 10/2024 Code(s): M85.80 - Other specified disorders of bone density and structure, unspecified site Category: Medical Qualifiers: Osteopenia location: unspecified Qualified Code(s): M85.80 - Other specified disorders of bone density and structure, unspecified site (4) HTN (hypertension): Code(s): I10 - Essential (primary) hypertension Category: Medical Qualifiers: Hypertension type: primary hypertension Qualified Code(s): I10 - Essential (primary) hypertension (5) B12 deficiency: Code(s): E53.8 - Deficiency of other specified B group vitamins Category: Medical (6) Hyperlipidemia: Code(s): E78.5 - Hyperlipidemia, unspecified Category: Medical (7) Nicotine dependence, cigarettes, uncomplicated: Comment: (onset 15yo, 1/2-1ppd x 54yrs, now <1/4ppd - 35PYH) Code(s): F17.210 - Nicotine dependence, cigarettes, uncomplicated Category: Medical (8) ANA (obstructive sleep apnea): Code(s): G47.33 - Obstructive sleep apnea (adult) (pediatric) Category: Medical (9) Pre-op exam: Code(s): Z01.818 - Encounter for other preprocedural examination Plan . Orders: Orders Complete Blood Count no Diff 10/08/25 E53.8 - Deficiency of other specified B group vitamins, E78.5 - Hyperlipidemia, unspecified, I10 - Essential (primary) hypertension, I25.10 - Atherosclerotic heart disease of [place] coronary artery without angina pectoris, M85.80 - Other specified disorders of bone density and structure, unspecified site TSH reflex Free T4 10/08/25 E53.8 - Deficiency of other specified B group vitamins, E78.5 - Hyperlipidemia, unspecified, I10 - Essential (primary) hypertension, I25.10 - Atherosclerotic heart disease of [place] coronary artery without angina pectoris, M85.80 - Other specified disorders of bone density and structure, unspecified site Comprehensive Met. Panel 10/08/25 E53.8 - Deficiency of other specified B group vitamins, E78.5 - Hyperlipidemia, unspecified, I10 - Essential (primary) hypertension, I25.10 - Atherosclerotic heart disease of [place] coronary artery without angina pectoris, M85.80 - Other specified disorders of bone density and structure, unspecified site Hemoglobin A1c 10/08/25 E53.8 - Deficiency of other specified B group vitamins, E78.5 - Hyperlipidemia, unspecified, I10 - Essential (primary) hypertension, I25.10 - Atherosclerotic heart disease of [place] coronary artery without angina pectoris, M85.80 - Other specified disorders of bone density and structure, unspecified site Lipid Panel 10/08/25 E53.8 - Deficiency of other specified B group vitamins, E78.5 - Hyperlipidemia, unspecified, I10 - Essential (primary) hypertension, I25.10 - Atherosclerotic heart disease of [place] coronary artery without angina pectoris, M85.80 - Other specified disorders of bone density and structure, unspecified site Microalbumin, Random (w Creat) 10/08/25 E53.8 - Deficiency of other specified B group vitamins, E78.5 - Hyperlipidemia, unspecified, I10 - Essential (primary) hypertension, I25.10 - Atherosclerotic heart disease of [place] coronary artery without angina pectoris, M85.80 - Other specified disorders of bone density and structure, unspecified site Vitamin B12 and Folate 10/08/25 E53.8 - Deficiency of other specified B group vitamins, E78.5 - Hyperlipidemia, unspecified, I10 - Essential (primary) hypertension, I25.10 - Atherosclerotic heart disease of [place] coronary artery without angina pectoris, M85.80 - Other specified disorders of bone density and structure, unspecified site Vitamin D 25-OH Total 10/08/25 E53.8 - Deficiency of other specified B group vitamins, E78.5 - Hyperlipidemia, unspecified, I10 - Essential (primary) hypertension, I25.10 - Atherosclerotic heart disease of [place] coronary artery without angina pectoris, M85.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
[2025-06-22 12:30] VITALS: BP 136/84; PULSE 90; RESP 16; TEMP 36.4; O2SAT 97; BMI 18.2
--- OUTSIDE RECORDS SUMMARY | 2025-06-22 15:30 | XMS_ITS | Clinical Summary ---
Author Organization [facility] Address [address] [facility] [address] [place] [address] Phone Care Team Providers Care Mirror Painter Name Role Phone Yenny Parish MD Unavailable Dian Macias Primary Care Provider Allergies Active Allergy Reactions Criticality Noted Date [...] l 06/16/2011 Influenza, Unspecified Formulation 06/18/2016, Novel [id number], Injectable 07/30/2009 Pneumococcal polysaccharide PPSV23 06/20/2020 Td, [...] on patient's age to complete this topic IPV VACCINES Aged Out No longer eligi ble [...] Date/Time Associated Diagnosis Comments COMPREHENSIVE METABOLIC PANEL (CMP) Routine 10/25/2020 2:09 PM EDT Lung nodules Adrenal nodule ENDOSCOPY, COLON 06/08/2018 10:0 8 AM EDT from Last 3 Months or Most Recently Relevant to Health Maintenance Results * (ABNORMAL) Comprehensive metabolic panel (10/25/2020 2:09 PM EDT) SODIUM 137 133 - 146 mmol/L [facility] POTASSIUM 4.0 3.3 - 5.1 mmol/L [facility] CHLORIDE 101 96 - 108 mmol/L [facility] CO2 25 21 - 35 mmol/L [facility] BUN 10 6 - 19 mg/dL [facility] CREATININE 0.60 0.5 - 1.5 mg/dL [facility] GLUCOSE 139(H) 70 - 99 mg/dL [facility] ALBUMIN 4.5 3.9 - 4.8 g/dL [facility] TOTAL PROTEIN 7.1 6.5 - 8.0 g/dL [facility] CALCIUM 9.8 8.4 - 10.3 mg/dL [facility] ALKALINE PHOSPHATASE 94 39 - 117 U/L [facility] TOTAL BILIRUBIN <0.2 0.0 - 1.2 mg/dL [facility] AST 12 0 - 37 U/L [facility] ALT 12 0 - 40 U/L [facility] GLOBULIN 2.6 1 - 4.8 g/dL [facility] EGFR 94 >59 mL/min/1.7 3m2 [facility] Comment:Estimated glomerular filtration rate calculated using the CKD-EPI equation. ANION GAP 15 10 - 20 mmol/L [facility] Blood 10/25/2020 2:09 PM EDT 10/25/2020 2:15 PM EDT us Adolfo Andrea MD LAB BLOOD BKR ORDERABLES Final R esult [facility] [address] [place] [address] * ENDOSCOPY, COLON (06/08/2018 10:08 AM EDT) Narrative Transcriptions Frank Corado MD - 06/08/2018 10:08 AM EDT Patient Name: Linda Diehl Attending MD:: FRANK CORADO MD Procedure Date: 06/08/2018 10:08AM Date of : 1955 Age: 63 Admit Type: Outpatient Gender: Female Room: [place] [address] Referring MD: WILL IGLESIAS Exam Type: Colonoscopy [...] monitored continuously. The Olympus adult variable colonoscope [id number] #2 was introduced through the anus and [...] 10:08 AM Procedure Code(s): --- Professional --- 09132, Colonoscopy, flexible; diagnostic, including collection of specimen(s) by brushing or washing, when performed (separateprocedure) --- Technical --- 71363, Colonoscopy, flexible; diagnostic, including collection of specimen(s) by brushing or washing, when performed (separateprocedure) Diagnosis Code(s): --- Professional --- Z86.010, Personal history of colonic polyps --- Technical --- Z86.010, Personal history of colonic polyps CPT copyright 2016 [employer]. All rights reserved. The codes documented in this report are preliminary and upon junior systems administrator reviewmay be revised to meet current compliance requirements. [address] [place] [address] Yeny Elizabeth NP GI PROCEDURE ORDERABLES Final Result from Last 3 Months or Most Recently Relevant to Health Maintenance Insurance [facility] MEDICARE SUPPLEMENT [facility] MEDICARE REPLACEMENT [address] [address] MEDICARE SUPPLEMENT [facility] MEDICARE REPLACEMENT MEDICARE SUPPLEMENT [facility] MEDICARE REPLACEMENT [place] [id number] [facility] MEDICARE SUPPLEMENT [facility] MEDICARE REPLACEMENT [facility] MEDICARE SUPPLEMENT [facility] MEDICARE REPLACEMENT [facility] MEDICARE SUPPLEMENT [facility] MEDICARE REPLACEMENT [facility] MEDICARE SUPPLEMENT [facility] MEDICARE REPLACEMENT MEDICARE SUPPLEMENT [facility] MEDICARE REPLACEMENT [place] [address] MEDICARE SUPPLEMENT [facility] MEDICARE REPLACEMENT [place] [id number] Care Teams Mirror Painter Relationship Specialty Start Date End Date Dian Macias PA [address] [place] [address] [email or web address] PCP - General 07/08/22 Yenny Parish MD [address] [place] [address] [email or web address] Primary Oncologist Hematology and Oncology 05/09/21 Additional Source Comments The information contained in this document represents components of the legal health record. It is not the complete legal health record.[facility]
--- OUTSIDE RECORDS SUMMARY | 2025-06-22 15:30 | XMS_ITS | Encounter Summary ---
Author Organization [facility] Address [address] [facility] [address] [place] [address] Phone Care Team Providers Care Admiralty Lawyer Name Role Phone Yeny Elizabeth NP Primary Care Provider [phone] Adolfo Andrea MD Unavailable Yenny Parish MD Unavailable Dian Macias Primary Care Provider [phone] Encounter Details Date Type Department Care Team (Late st Contact Info) Description 01/21/2021 Procedure Pass [facility], Ct Scan - [address] [address] Social History Tobacco Use Types Packs/Day Years [...] on filedocumented in this encounter Care Teams Admiralty Lawyer Relationship Specialty Start Date End Date Yeny Elizabeth NP [address] [place] [address] PCP - General Nurse Practitioner 06/04/18 07/07/22 Dian Macias PA [address] [place] [address] [email or web address] - General 07/08/22 Adolfo Andrea MD [address] [place] [address] [email or web address] Primary Oncologist Hematology and Oncology 08/02/20 Yenny Parish MD [address] [place] [phone] [email or web address] Primary Oncologist Hematology and Oncology 05/09/21 documented as of this encounter Additional Source Comments The information contained in this document represents components of the legal health record. It is not the complete legal health record.[facility]
--- OUTSIDE RECORDS SUMMARY | 2025-06-22 15:30 | XMS_ITS | Encounter Summary ---
Author Organization [facility] Address [address] [facility] [address] [place] [address] Phone Care Team Providers Care Metal Smelter Name Role Phone Yeny Elizabeth NP Primary Care Provider [phone] Adolfo Andrea MD Unavailable Yenny Parish MD Unavailable Dian Macias Primary Care Provider [phone] Encounter Details Date Type Department Care Team (Late st Contact Info) Description 08/22/2020 Procedure Pass [facility] [address] [place] [address] Social History Tobacco Use Types Packs/Day Years [...] on filedocumented in this encounter Care Teams Metal Smelter Relationship Specialty Start Date End Date Yeny Elizabeth NP [address] [place] [address] [phone] PCP - General Nurse Practitioner 06/04/18 07/07/22 Dian Macias PA [address] [place] [address] [email or web address] PCP - General 07/08/22 Adolfo Andrea MD [address] [place] [email or web address] Primary Oncologist Hematology and Oncology 08/02/20 Yenny Parish MD [address] [place] [phone] [email or web address] Primary Oncologist Hematology and Oncology 05/09/21 documented as of this encounter Additional Source Comments The information contained in this document represents components of the legal health record. It is not the complete legal health record.[facility]
--- OUTSIDE RECORDS SUMMARY | 2025-06-22 15:30 | XMS_ITS | Clinical Summary ---
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
--- OUTSIDE RECORDS SUMMARY | 2025-06-22 15:30 | XMS_ITS | Encounter Summary ---
Author Organization [facility] Address [address] [facility] [address] [place] [address] Phone Care Team Providers Care Panel Fitter Name Role Phone Yeny Elizabeth NP Primary Care Provider [phone] Adolfo Andrea MD Unavailable Yenny Parish MD Unavailable Dian Macias Primary Care Provider [phone] Reason for Referral * MRI/CAT Scan - Closed Specialty Diagnoses / Procedures Referred By Contac t Referred To Contact Radiology Diagnoses Hepatomegaly, not elsewhere classified Procedures MRI Abdomen Yeny Elizabeth NP Phone: tel: Referral ID Status Reason Start Date Expiration Date Visits Re quested Visits Authorized [id number] Closed 07/10/2020 07/10/2021 1 1 * MRI/CAT Scan - Closed Specialty Diagnoses / Procedures Referred By Contac t Referred To Contact Radiology Diagnoses Multiple nodules of lung Other nonspecific abnormal finding of lung field Procedures CT Chest Yeny Elizabeth NP Phone: tel: Referral ID Status Reason Start Date Expiration Date Visits Re quested Visits Authorized [id number] Closed 07/10/2020 07/10/2021 1 1 Encounter Details Date Type Department Care Team (Late st Contact Info) Description 07/10/2020 Transcribe Orders [facility] Department [address] [place] [address] Yeny Elizabeth NP [address] [place] [address] Multiple nodules of lung (Primary Dx); Other [...] other upper abdominal pathology is apparent. POS [id number] Narrative 07/19/2020 11:37 AM EST TECHNIQUE: 1.5 [...] other upper abdominal pathology is apparent. POS [id number] Yeny Elizabeth NP IMG MR ABDOMEN Final [...] nodule consistent with an adenoma. Yeny Elizabeth PRESSURE CONTROLLER IMG CT CHEST Final Result documented in this encounter Visit Diagnoses Diagnosis Multiple nodules of lung- Primary Other nonspecific abnormal finding of lung field Hepatomegaly, not elsewhere classified Hepatomegaly, not elsewhere classified Multiple nodules of lung Other nonspecific abnormal finding of lung field documented in this encounter Care Teams Panel Fitter Relationship Specialty Start Date End Date Yeny Elizabeth NP [address] [place] [address] PCP - General Nurse Practitioner 06/04/18 07/07/22 Dian Macias PA [address] [place] [address] [email or web address] PCP - General 07/08/22 Adolfo Andrea MD [address] [place] [address] [email or web address] Primary Oncologist Hematology and Oncology 08/02/20 Yenny Parish MD [address] [place] [address] [email or web address] Primary Oncologist Hematology and Oncology 05/09/21 documented as of this encounter Additional Source Comments The information contained in this document represents components of the legal health record. It is not the complete legal health record.[facility]
--- OUTSIDE RECORDS SUMMARY | 2025-06-22 15:30 | XMS_ITS | Encounter Summary ---
Author Organization [facility] Address [address] [facility] [address] [place] [address] Phone Care Team Providers Care Hydrocrane Operator Name Role Phone Yeny Elizabeth NP Primary Care Provider [phone] Adolfo Andrea MD Unavailable Yenny Parish MD Unavailable Dian Macias Primary Care Provider [phone] Encounter Details Date Type Department Care Team (Late st Contact Info) Description 08/31/2020 Procedure Pass [facility], Ct Scan - [address] [id number] Social History Tobacco Use Types Packs/Day Years [...] on filedocumented in this encounter Care Teams Hydrocrane Operator Relationship Specialty Start Date End Date Yeny Elizabeth NP [address] [place] [address] PCP - General Nurse Practitioner 06/04/18 07/07/22 Dian Macias PA [address] [place] [address] [email or web address] PCP - General 07/08/22 Adolfo Andrea MD [address] [place] [address] Primary Oncologist Hematology and Oncology 08/02/20 Yenny Parish MD [address] [place] [phone] [email or web address] Primary Oncologist Hematology and Oncology 05/09/21 documented as of this encounter Additional Source Comments The information contained in this document represents components of the legal health record. It is not the complete legal health record.[facility]
--- OUTSIDE RECORDS SUMMARY | 2025-06-22 15:30 | XMS_ITS | Encounter Summary ---
Author Organization [facility] Address [address] [facility] [address] [place] [address] Phone Care Team Providers Care Oracle Ebs Architect Name Role Phone Yeny Elizabeth NP Primary Care Provider [phone] Adolfo Andrea MD Unavailable Yenny Parish MD Unavailable Dian Macias Primary Care Provider [phone] Encounter Details Date Type Department Care Team (Late st Contact Info) Description 08/31/2020 Procedure Pass [facility], Ct Scan - [address] [id number] Social History Tobacco Use Types Packs/Day Years [...] on filedocumented in this encounter Care Teams Oracle Ebs Architect Relationship Specialty Start Date End Date Yeny Elizabeth NP [address] [place] [address] PCP - General Nurse Practitioner 06/04/18 07/07/22 Dian Macias PA [address] [place] [address] [email or web address] PCP - General 07/08/22 Adolfo Andrea MD [address] [place] [address] [email or web address] Primary Oncologist Hematology and Oncology 08/02/20 Yenny Parish MD [address] [place] [phone] [email or web address] Primary Oncologist Hematology and Oncology 05/09/21 documented as of this encounter Additional Source Comments The information contained in this document represents components of the legal health record. It is not the complete legal health record.[facility]
--- OUTSIDE RECORDS SUMMARY | 2025-06-22 15:30 | XMS_ITS | Encounter Summary ---
Author Organization [facility] Address [address] [facility] [address] [place] [address] Phone Care Team Providers Care Gypsum Block Setter Name Role Phone Yeny Elizabeth NP Primary Care Provider [phone] Adolfo Andrea MD Unavailable Yenny Parish MD Unavailable Dian Macias Primary Care Provider [phone] Encounter Details Date Type Department Care Team (Late st Contact Info) Description 02/08/2021 Procedure Pass [facility], Ct Scan - [address] [phone] Social History Tobacco Use Types Packs/Day Years [...] on filedocumented in this encounter Care Teams Gypsum Block Setter Relationship Specialty Start Date End Date Yeny Elizabeth NP [address] [place] [address] PCP - General Nurse Practitioner 06/04/18 07/07/22 Dian Macias PA [address] [place] [address] [email or web address] - General 07/08/22 Adolfo Andrea MD [address] [place] [address] [email or web address] Primary Oncologist Hematology and Oncology 08/02/20 Yenny Parish MD [address] [place] [phone] [email or web address] Primary Oncologist Hematology and Oncology 05/09/21 documented as of this encounter Additional Source Comments The information contained in this document represents components of the legal health record. It is not the complete legal health record.[facility]
--- OUTSIDE RECORDS SUMMARY | 2025-06-22 15:30 | XMS_ITS | Encounter Summary ---
Author Organization [facility] Address [address] [facility] [address] [place] [address] Phone Care Team Providers Care Cooker Cleaner Name Role Phone Yeny Elizabeth NP Primary Care Provider [phone] Adolfo Andrea MD Unavailable Yenny Parish MD Unavailable Dian Macias Primary Care Provider [phone] Encounter Details Date Type Department Care Team (Late st Contact Info) Description 08/20/2020 Procedure Pass [facility] [address] [place] [address] Social History Tobacco Use Types Packs/Day Years [...] on filedocumented in this encounter Care Teams Cooker Cleaner Relationship Specialty Start Date End Date Yeny Elizabeth NP [address] [place] [address] [phone] PCP - General Nurse Practitioner 06/04/18 07/07/22 Dian Macias PA [address] [place] [address] [email or web address] PCP - General 07/08/22 Adolfo Andrea MD [address] [place] [phone] [email or web address] Primary Oncologist Hematology and Oncology 08/02/20 Yenny Parish MD [address] [place] [phone] [email or web address] Primary Oncologist Hematology and Oncology 05/09/21 documented as of this encounter Additional Source Comments The information contained in this document represents components of the legal health record. It is not the complete legal health record.[facility]
--- OUTSIDE RECORDS SUMMARY | 2025-06-22 15:30 | XMS_ITS | Encounter Summary ---
Author Organization [facility] Address [address] [facility] [address] [place] [address] Phone Care Team Providers Care Order Builder Loader Name Role Phone Yeny Elizabeth NP Primary Care Provider [phone] Adolfo Andrea MD Unavailable Yenny Parish MD Unavailable Dian Macias Primary Care Provider [phone] Encounter Details Date Type Department Care Team (Late st Contact Info) Description 07/10/2020 Procedure Pass [facility], [address] [address] Social History Tobacco Use Types Packs/Day Years [...] on filedocumented in this encounter Care Teams Order Builder Loader Relationship Specialty Start Date End Date Yeny Elizabeth AS[address] OPERATOR [address] [place] [phone] PCP - General Nurse Practitioner 06/04/18 07/07/22 Dian Macias PA [address] [place] [address] [email or web address] PCP - General 07/08/22 Adolfo Andrea MD [address] [place] [phone] [email or web address] Primary Oncologist Hematology and Oncology 08/02/20 Yenny Parish MD [address] [place] [address] [email or web address] Primary Oncologist Hematology and Oncology 05/09/21 documented as of this encounter Additional Source Comments The information contained in this document represents components of the legal health record. It is not the complete legal health record.[facility]
--- OUTSIDE RECORDS SUMMARY | 2025-06-22 15:31 | XMS_ITS | Encounter Summary ---
Author Organization [facility] Address [address] [facility] [address] [place] [address] Phone Care Team Providers Care Powerhouse Engineer Name Role Phone Yeny Elizabeth NP Primary Care Provider [phone] Adolfo Andrea MD Unavailable Yenny Parish MD Unavailable Dian Macias Primary Care Provider [phone] Encounter Details Date Type Department Care Team (Late st Contact Info) Description 06/21/2020 Procedure Pass [facility], Ct Scan - [address] [address] Social History Tobacco Use Types Packs/Day Years [...] on filedocumented in this encounter Care Teams Powerhouse Engineer Relationship Specialty Start Date End Date Yeny Elizabeth NP [address] [place] [address] PCP - General Nurse Practitioner 06/04/18 07/07/22 Dian Macias PA [address] [place] [address] [email or web address] PCP - General 07/08/22 Adolfo Andrea MD [address] [place] [address] [email or web address] Primary Oncologist Hematology and Oncology 08/02/20 Yenny Parish MD [address] [place] [phone] [email or web address] Primary Oncologist Hematology and Oncology 05/09/21 documented as of this encounter Additional Source Comments The information contained in this document represents components of the legal health record. It is not the complete legal health record.[facility]
--- OUTSIDE RECORDS SUMMARY | 2025-06-22 15:31 | XMS_ITS | Encounter Summary ---
Author Organization [facility] Address [address] [facility] [address] [place] [address] Phone Care Team Providers Care Business Initiatives Manager Name Role Phone Yeny Elizabeth NP Primary Care Provider [phone] Adolfo Andrea MD Unavailable Yenny Parish MD Unavailable Dian Macias Primary Care Provider [phone] Encounter Details Date Type Department Care Team (Late st Contact Info) Description 06/08/2018 Procedure Pass [facility] Endoscopy Admitting Dept Virtual Department [address] [place] [address] Social History Tobacco Use Types Packs/Day Years [...] on filedocumented in this encounter Care Teams Business Initiatives Manager Relationship Specialty Start Date End Date Yeny Elizabeth NP [address] [place] [address] PCP - General Nurse Practitioner 10/26/18 11/28/22 Dian Macias PA [address] [place] [address] [email or web address] PCP - General 07/08/22 Adolfo Andrea MD [address] [place] [address] [email or web address] Primary Oncologist Hematology and Oncology 08/02/20 Yenny Parish MD [address] [place] [phone] [email or web address] Primary Oncologist Hematology and Oncology 05/09/21 documented as of this encounter Additional Source Comments The information contained in this document represents components of the legal health record. It is not the complete legal health record.[facility]
--- OUTSIDE RECORDS SUMMARY | 2025-06-22 15:31 | XMS_ITS | Encounter Summary ---
Author Organization [facility] Address [address] [facility] [address] [place] [address] Phone Care Team Providers Care Dental Officer Name Role Phone Yeny Elizabeth NP Primary Care Provider [phone] Adolfo Andrea MD Unavailable Yenny Parish MD Unavailable Dian Macias Primary Care Provider [phone] Reason for Referral * MRI/CAT Scan - Closed Specialty Diagnoses / Procedures Referred By Contac t Referred To Contact Radiology Diagnoses Abdominal pain, unspecified abdominal location Procedures CT Abdomen/Pelvis Peyton Goodwin NP [address] [place] [address] Phone: tel: fax: [address] Phone: tel: Referral ID Status Reason Start Date Expiration Date Visits Re quested Visits Authorized [id number] Closed 06/21/2020 06/21/2021 1 1 Encounter Details Date Type Department Care Team (Late st Contact Info) Description 06/21/2020 Transcribe Orders [facility] Department [address] [place] [phone] Peyton Goodwin NP [address] [place], [place] [id number] Abdominal pain, unspecified abdominal location (Primary Dx) [...] location documented in this encounter Care Teams Dental Officer Relationship Specialty Start Date End Date Yeny Elizabeth NP [address] [place] [id number] PCP - General Nurse Practitioner 06/04/18 07/07/22 Dian Macias PA [address] [place] [phone] [email or web address] PCP - General 07/08/22 Adolfo Andrea MD [address] [place] [phone] [email or web address] Primary Oncologist Hematology and Oncology 08/02/20 Yenny Parish MD [address] [place] [address] [email or web address] Primary Oncologist Hematology and Oncology 05/09/21 documented as of this encounter Additional Source Comments The information contained in this document represents components of the legal health record. It is not the complete legal health record.[facility]
--- OUTSIDE RECORDS SUMMARY | 2025-06-22 15:31 | XMS_ITS | Encounter Summary ---
Author Organization [facility] Address [address] [facility] [address] [place] [address] Phone Care Team Providers Care Emergency Medical Service Manager Name Role Phone Yeny Elizabeth NP Primary Care Provider [phone] Adolfo Andrea MD Unavailable Yenny Parish MD Unavailable Dian Macias Primary Care Provider [phone] Encounter Details Date Type Department Care Team (Late st Contact Info) Description 07/10/2020 Procedure Pass [facility], Ct Scan - [address] [address] Social History Tobacco Use Types Packs/Day Years [...] on filedocumented in this encounter Care Teams Emergency Medical Service Manager Relationship Specialty Start Date End Date Yeny Elizabeth NP [address] [place] [address] PCP - General Nurse Practitioner 06/04/18 07/07/22 Dian Macias PA [address] [place] [address] [email or web address] PCP - General 07/08/22 Adolfo Andrea MD [address] [place] [address] [email or web address] Primary Oncologist Hematology and Oncology 08/02/20 Yenny Parish MD [address] [place] [phone] [email or web address] Primary Oncologist Hematology and Oncology 05/09/21 documented as of this encounter Additional Source Comments The information contained in this document represents components of the legal health record. It is not the complete legal health record.[facility]
== END 2025-06-22 13:55 | disposition home or self-care (01) ==
LOC: HO.HMCFM 12:20
PROVIDERS: PCP Nurse Practitioner Family; Visit Provider Nurse Practitioner Family
DX: H69.83 Other specified disorders of Eustachian tube, bilateral (principal); I25.10 Atherosclerotic heart disease of native coronary artery without angina pectoris; M85.80 Other specified disorders of bone density and structure, unspecified site; I10 Essential (primary) hypertension; E53.8 Deficiency of other specified B group vitamins; E78.5 Hyperlipidemia, unspecified; F17.210 Nicotine dependence, cigarettes, uncomplicated; G47.33 Obstructive sleep apnea (adult) (pediatric); Z01.818 Encounter for other preprocedural examination

== ENCOUNTER → 2025-06-22 12:19 | Outpatient (BNVA) | payer MEDICARE, OTHER, SELFPAY | PROVIDERS: PCP Nurse Practitioner Family; Visit Provider Nurse Practitioner Family | DX: Z01.818 Encounter for other preprocedural examination (principal); I25.10 Atherosclerotic heart disease of native coronary artery without angina pectoris; E78.5 Hyperlipidemia, unspecified; I10 Essential (primary) hypertension; J44.9 Chronic obstructive pulmonary disease, unspecified; M16.11 Unilateral primary osteoarthritis, right hip; H69.83 Other specified disorders of Eustachian tube, bilateral; M85.80 Other specified disorders of bone density and structure, unspecified site; E53.8 Deficiency of other specified B group vitamins; F17.210 Nicotine dependence, cigarettes, uncomplicated; G47.33 Obstructive sleep apnea (adult) (pediatric) | CPT/HCPCS: 99212 ==

== ENCOUNTER 2025-07-24 13:36 | Outpatient (AMB) | payer MEDICARE, MEDICAID, SELFPAY ==
[2025-07-24 13:42] VITALS: BP 190/96; PULSE 68; O2SAT 95; BMI 18.4
--- NOTE | 2025-07-24 13:42 | A.OFFVIS_ITS ---
Vital Signs 3 07/24/25 13:42 07/24/25 14:07 Height 5 ft 3 in Weight 103 lb 9.876 oz BMI 18.4 BP 190/96 H 160/80 H Blood Pressure Location Lt brachial Rt brachial Position Sitting Sitting Pulse 68 Pulse Source Pulse Oximeter Pulse Oximetry (%) 95 Oxygen Delivery Method Room Air Intake Visit Reasons: COPD Calender Operator Required: No Pigs Feet Finisher: Pigs Feet Finisher offered & declined Accompanied by: Self / Same As Patient Allergies Penicillins (PENICILLINS) Allergy (Unknown, Verified 07/24/25 13:47) ITCHING HPI Comments Details: The patient is a 70 year woman who is an active smoker with the history of COPD and also pulmonary nodules. Apparently the patient was evaluated I believe to the lung cancer screening program back in 2019 in the beginning of the pandemic and she had pulmonary nodules noted. At some point the pulmonary nodules increase in size and the patient is referred to both Oncology and Pulmonary. She did undergo a PET scan. She was concern for the possibility of metastatic disease. Therefore she became depressed and she started smoking more cigarettes. The patient ultimately followed up with additional imaging studies and it appeared that allow the nodules had subsided and therefore this is less likely metastatic disease. Although the etiology still unclear. She did have recent imaging studies last CT scan was in the summer of 2022 although I do not have those reports. Will have to request or CT scans and ideally the films she in a CD that we can visualize the abnormalities. She also continues to smoke cigarettes. She is cutting down. She does fluctuate. We did talk about her COPD in her chronic bronchitis and how this is also contributing to her symptoms. The patient is willing to try nicotine patch at this time she knows not to smoke cigarettes while on the nicotine patch. She also has a history of sleep apnea. The patient did have a CPAP in the past. She does have fatigue during the daytime and daytime drowsiness. Will be reasonable to order a sleep study at this time to better address her underlying degree of sleep apnea in view of her daytime drowsiness and her cardiovascular risk factors. 08/11/2023 the patient is here for a pulmonary follow-up visit. Overall the patient is doing well from a pulmonary standpoint. She does complaint of significant lower extremity pain and Cuortney horses. I did explain to her that it could be medication related such as beta agonists findings of a her inhalers can result in potassium chips that can result in muscle spasms. She sometimes twitches overt sometimes uses lab Trelegy or Breo that she may have left over. I did advise her to hold all meds for we can see there is any improvement in her symptoms. Otherwise if she does need to take the inhaler she can try potassium rich foods such as orange or bananas to see if this provides some relief. If not she can also ask her primary care doctor about other medications that she takes such as her Lipitor that can also cause muscle discomfort. The patient did have a CT scan of the chest to the lung cancer screening program which we personally reviewed. It appears that she has pulmonary nodules but the largest nodules actually decreased in size which is reassuring. Her rads score was read as to which is reassuring. She has multiple nodules but they are stable and show have a follow-up CT scan in a year's time. This is concerning to her because at 1 point she was told she had metastatic disease and she was very concerned about that. I did reassure that does not appear to be any worsening of the nodules. She still continues to smoke cigarettes. She does have a quit date and she is hoping to quit altogether. I did encourage her to do so specially with her ongoing symptoms. 02/16/2024 the patient is here for a pulmonary follow-up visit. Overall she is doing okay. She did have an episode Significant abdominal discomfort mainly in the right upper quadrant causing to have some difficulty breathing. She was starting to pant and she could not breathe and therefore she decided to go to the ER. She did have a CT scan of the abdomen. I did personally reviewed. No evidence of any pulmonary parenchymal disease to explain her symptoms. Although on exam she does have some guarding over the right upper voluntary guarding. Her LFTs were normal which is reassuring. No evidence of any gallstones or any cholecystitis on her CT scan of the abdomen. She will be following up with primary care doctor. In the meantime respiratory diamond patient is doing well. She is participating in lung cancer screening program and is due for CT scan the fall 2023. continues use respiratory inhalers as needed. We did go for brief walking oximetry because of shortness of breath and she was able to maintain a pulse ox in the mid 90s. Will go ahead and check an overnight oximetry to make sure she does not have any evidence of hypoxia at nighttime. 05/20/2024 the patient is here for a pulmonary follow-up visit. Overall she is doing well. The patient has been using her rescue inhaler as needed. Typically does not use it often. She did have a cold recently did develop some cough although seems to be getting better. Mild in severity. Denies any chest pains denies any shortness of breath. She did have an overnight oximetry which is reassuring without any desaturations. The patient also is participating in the lung cancer screening program at [facility]. Her last CT scan was back in 04/29/2023. She has not heard as of yet of her more recent CT scan order. Therefore I did request that if she does not hear anything by June to call us and I will put a referral in to our program so she can consider getting her lung cancer screening program here. In addition to that she is working on her smoking cessation. The patient is trying to quit although is difficult because this is a past time. She is doing her best. She also quit drinking due to the fact that she has been having some unsteadiness of the gait. 01/26/2025 the patient is here for pulmonary follow-up visit. Overall the patient has been doing well. She continues use her respiratory therapy as prescribed. She is no longer using any oxygen which is reassuring. The patient has been limited mainly because of her hip. She has significant hip pain that limits her activity. She is using a walker. She is not being evaluated for potential total hip replacement. From a pulmonary standpoint she is doing very good. She did have a screening CAT scan which is reassuring rods to with emphysema and some small pulmonary nodules. But personally looking at the images I was not impressed with the level of emphysema. She needs to be evaluated by Cardiology as well. But I do believe that from a pulmonary standpoint the patient does have mild risk for perioperative pulmonary complications which include atelectasis, hypoxia, COPD exacerbation, pneumonia. The patient should continue to use her respiratory medications as prescribed. She will follow-up in 6 months. If she has any issues prior to this she will call for an earlier assessment. Of note the patient may need to have oral surgery before her hip surgery which is perfectly fine to proceed with anesthesia and oral surgery as well. 07/24/2025 the patient is here for pulmonary follow-up visit. The patient overall has been doing okay. She does complain of dyspnea on exertion. She is currently using walker that provides her some relief. She continues use her respiratory medicine. Unfortunately she continues to smoke cigarettes. She did participate in the lung cancer screening program. Her last CT scan of the chest was back in December 2024 demonstrating small pulmonary nodules. subsequently to that the patient did follow-up with ENT and she did undergo a CT scan of the neck demonstrating atrophic parotid glands. In addition to that does appear to have a 6 mm cavitary looking nodule. I did went back and looked at her CT scan from December and I did not appreciate that nodule. Based on her significant smoking history in the concerns for cancer she should have a follow-up CT scan. I will go ahead and order 1 in 3 months to reassess that nodular density. In the meantime Her blood pressure is elevated today. Initially was significantly elevated 190s systolic. Then it was rechecked and it was still elevated at 160 systolic. The patient needs to follow with primary care regarding the elevated blood pressure. The patient is also scheduled to undergo surgery for her hip. At this point the patient does not have a scheduled date. [facility] Medical History Nicotine dependence, cigarettes, uncomplicated History of mammogram Thyroid cancer ANA (obstructive sleep apnea) Pulmonary nodules COPD (chronic obstructive pulmonary disease) Surgical History History of tonsillectomy History of partial thyroidectomy History of colonoscopy (~06/08/18) Previous back surgery H/O laminectomy History of bowel resection Family History Sister Depression Brother Depression HTN (hypertension) Father HTN (hypertension) Heart disease Paternal Grandfather HTN (hypertension) Brother Heart disease Other FH: mental illness Social History Housing: House Alcohol intake: current Patient Tobacco Use Status: Current everyday Tobacco user Tobacco use type: Cigarette Cigarettes Per Day: 4 Years Smoked: (onset 15yo, 1/2-1ppd x 54yrs, now <1/4ppd - 35PYH) e-Cigarette/Vaping Use: Never Used service: No Current occupational status: retired Cognitive needs: No Hearing needs: Yes (need hearing checked) Vision needs: Yes (glasses) Review of Systems Const Reports daytime sleepiness, Reports difficulty sleeping, Denies fever(s) and Reports snoring Eyes Reports no additional complaints ENT Reports nasal congestion Card Denies chest pain and Reports dyspnea on exertion Resp Reports cough, Reports dyspnea on exertion, Reports snoring and Reports wheezing GI Reports as per HPI and Reports abdominal pain Musc Reports as per HPI, Reports abnormal gait, Reports myalgias and Reports limited range of motion Skin/Breast Denies rash Neuro Reports no additional complaints and Reports abnormal gait Psych Reports abnormal sleep pattern Narayan/Lymph Denies lymphadenopathy Aller/Immun Reports wheezing Physical Exam Vital Signs: Last Vital Signs Pulse 68 07/24/25 13:42 BP 160/80 H 07/24/25 14:07 Pulse Ox 95 07/24/25 13:42 Oxygen Delivery Method Room Air 07/24/25 13:42 BMI result Body Mass Index 18.4 Const General: comfortable HEENT Head: Yes normocephalic Neck Neck: Yes supple Chest Chest palpation & inspection: normal inspection of the chest Resp Effort & Inspection: normal respiratory effort and prolonged expiratory phase Auscultation: diminished lung sounds Cardio Heart sounds: S1 normal heart sound present and S2 normal heart sound present GI Palpation (GI): Soft to palpation Skin General skin exam: no rashes or lesions noted Extrem General: Yes no clubbing, cyanosis or edema Results Reviewed Results Reviewed: Assessment & Plan Assessment & Plan (1) COPD (chronic obstructive pulmonary disease): Code(s): J44.9 - Chronic obstructive pulmonary disease, unspecified Category: Medical Qualifiers: COPD type: chronic bronchitis Chronic bronchitis type: simple Q ualified Code(s): J41.0 - Simple chronic bronchitis (2) Pulmonary nodules: Comment: 2022-LDCT RADS 2 Code(s): R91.8 - Other nonspecific abnormal finding of lung field Category: Medical (3) Smoking: Code(s): F17.200 - Nicotine dependence, unspecified, uncomplicated Category: Medical (4) ANA (obstructive sleep apnea): Code(s): G47.33 - Obstructive sleep apnea (adult) (pediatric) Category: Medical (5) HTN (hypertension): Code(s): I10 - Essential (primary) hypertension Category: Medical Qualifiers: Hypertension type: primary hypertension Qualified Code(s): I10 - Essential (primary) hypertension Plan continue Symbicort JOVITA as needed overnight oximetry on RA very good LDCT RADS 2, However, new 6mm cavitary nodule on CT neck. Will request CT chest in 3 months F/U with PCP re: HTN F/U 3-4 months Orders: Orders 2 CT chest wo IV con 3 Months R91.8 - Other nonspecific abnormal finding of lung field Medications: New 2 budesonide-formoterol 160-4.5 mcg/actuation (Symbicort) 2 puffs inhalation BID 30 days 10.2 grams 11RF J44.89 - Other specified chronic obstructive pulmonary disease albuterol sulfate 90 mcg/actuation 2 inhalations inhalation Q6H PRN 18 grams 12RF shortness of breath or wheezing 30 days J44.9 - Chronic obstructive pulmonary disease, unspecified budesonide-formoterol 160-4.5 mcg/actuation (Symbicort) 2 puffs inhalation BID 3 ea 3RF 90 days J44.89 - Other specified chronic obstructive pulmonary disease albuterol sulfate 90 mcg/actuation 2 inhalations inhalation Q6H PRN 3 ea 12RF shortness of breath or wheezing 90 days J44.9 - Chronic obstructive pulmonary disease, unspecified Coding Level of Care Code Est Pt Level 4 (05303) Diagnoses Simple chronic bronchitis J41.0 COPD type: chronic bronchitis Chronic bronchitis type: simple Pulmonary nodules R91.8 Smoking F17.200 ANA (obstructive sleep apnea) G47.33 Primary hypertension I10 Hypertension type: primary hypertension Time Spent (min) 17
[2025-07-24 14:07] VITALS: BP 160/80
--- OUTSIDE RECORDS SUMMARY | 2025-07-24 19:49 | XMS_ITS | Encounter Summary ---
Author Organization [facility] Address [address] [place] [address] Phone Care Team Providers Care Benefit Director Name Role Phone Yeny Elizabeth NP Primary Care Provider [phone] Adolfo Andrea MD Unavailable Yenny Parish MD Unavailable Dian Macias Primary Care Provider [phone] Encounter Details Date Type Department Care Team (Late st Contact Info) Description 07/10/2020 Procedure Pass [facility], [address] [address] Social History Tobacco Use Types Packs/Day Years [...] on filedocumented in this encounter Care Teams Benefit Director Relationship Specialty Start Date End Date Yeny Elizabeth HARNESS MENDER [address] [place] [address] PCP - General Nurse Practitioner 06/04/18 07/07/22 Dian Macias PA [address] [place] [address] [email or web address] PCP - General 07/08/22 Adolfo Andrea MD [address] [place] [email or web address] Primary Oncologist Hematology and Oncology 08/02/20 Yenny Parish MD [address] [place] [address] [email or web address] Primary Oncologist Hematology and Oncology 05/09/21 documented as of this encounter Additional Source Comments The information contained in this document represents components of the legal health record. It is not the complete legal health record.[facility]
--- OUTSIDE RECORDS SUMMARY | 2025-07-24 19:49 | XMS_ITS | Encounter Summary ---
Author Organization [facility] Address [address] [facility] [address] [place] [address] Phone Care Team Providers Care Leadite Heater Name Role Phone Yeny Elizabeth NP Primary Care Provider Adolfo Andrea MD Unavailable Yenny Parish MD Unavailable Dian Macias Primary Care Provider [phone] Encounter Details Date Type Department Care Team (Late st Contact Info) Description 08/22/2020 Procedure Pass [facility] [address] [place] [address] Social History Tobacco Use Types Packs/Day Years [...] on filedocumented in this encounter Care Teams Leadite Heater Relationship Specialty Start Date End Date Yeny Elizabeth NP [address] [place] [address] [phone] PCP - General Nurse Practitioner 06/04/18 07/07/22 Dian Macias PA [address] [place] [address] [email or web address] PCP - General 07/08/22 Adolfo Andrea MD [address] [phone] [email or web address] Primary Oncologist Hematology and Oncology 08/02/20 Yenny Parish MD [address] [place] [address] [email or web address] Primary Oncologist Hematology and Oncology 05/09/21 documented as of this encounter Additional Source Comments The information contained in this document represents components of the legal health record. It is not the complete legal health record.[facility]
--- OUTSIDE RECORDS SUMMARY | 2025-07-24 19:49 | XMS_ITS | Clinical Summary ---
Author Organization [facility] Address [address] [place] [id number] Care Team Providers Care Pharmaceutical Physician Name Role Phone Rosa M Mason APRN Primary Care Provider + Allergies No known active allergies Medications No known medications Encounters Date Type Department Care Team Description 06/28/2025 Scanned Document [facility] [address] [place] [address] Salvador Tarango MD 05/17/2025 1:45 PM EDT Office Visit [facility] [address] [facility], [place] [address] Salvador Tarango MD Sensorineural hearing [...] patient's age to complete this topic Insurance [employer] MGD MEDICARE Care Teams Pharmaceutical Physician Relationship Specialty Start Date End Date Rosa M Mason APRN [address] [place] [address] PCP - General Family Medicine 03/15/25
--- OUTSIDE RECORDS SUMMARY | 2025-07-24 19:49 | XMS_ITS | Encounter Summary ---
Author Organization [facility] Address [address] [address] [facility] [address] [place] [address] Phone Care Team Providers Care Commercial Account Officer Name Role Phone Yeny Elizabeth NP Primary Care Provider [phone] Adolfo Andrea MD Unavailable Yenny Parish MD Unavailable Dian Macias Primary Care Provider [phone] Reason for Referral * MRI/CAT Scan - Closed Specialty Diagnoses / Procedures Referred By Contac t Referred To Contact Radiology Diagnoses Hepatomegaly, not elsewhere classified Procedures MRI Abdomen Yeny Elizabeth NP Phone: tel: Referral ID Status Reason Start Date Expiration Date Visits Re quested Visits Authorized [id number] Closed 07/10/2020 07/10/2021 1 1 * MRI/CAT Scan - Closed Specialty Diagnoses / Procedures Referred By Contac t Referred To Contact Radiology Diagnoses Multiple nodules of lung Other nonspecific abnormal finding of lung field Procedures CT Chest Yeny Elizabeth NP Phone: tel: Referral ID Status Reason Start Date Expiration Date Visits Re quested Visits Authorized [id number] Closed 07/10/2020 07/10/2021 1 1 Encounter Details Date Type Department Care Team (Late st Contact Info) Description 07/10/2020 Transcribe Orders [facility] Department [address] [place] [address] Yeny Elizabeth NP [address] [place] [address] Multiple nodules of lung (Primary Dx); Other [...] other upper abdominal pathology is apparent. POS [id number] Narrative 07/19/2020 11:37 AM EST TECHNIQUE: 1.5 [...] other upper abdominal pathology is apparent. POS [id number] Yeny Elizabeth NP IMG MR ABDOMEN Final [...] nodule consistent with an adenoma. Yeny Elizabeth FUEL MANAGER IMG CT CHEST Final Result documented in this encounter Visit Diagnoses Diagnosis Multiple nodules of lung- Primary Other nonspecific abnormal finding of lung field Hepatomegaly, not elsewhere classified Hepatomegaly, not elsewhere classified Multiple nodules of lung Other nonspecific abnormal finding of lung field documented in this encounter Care Teams Commercial Account Officer Relationship Specialty Start Date End Date Yeny Elizabeth NP [address] [place] [address] PCP - General Nurse Practitioner 06/04/18 07/07/22 Dian Macias PA [address] [place] [address] [email or web address] PCP - General 07/08/22 Adolfo Andrea MD [address] [facility] [address] [place] [address] [email or web address] Primary Oncologist Hematology and Oncology 08/02/20 Yenny Parish MD [address] [place] [address] [email or web address] Primary Oncologist Hematology and Oncology 05/09/21 documented as of this encounter Additional Source Comments The information contained in this document represents components of the legal health record. It is not the complete legal health record.[facility]
--- OUTSIDE RECORDS SUMMARY | 2025-07-24 19:49 | XMS_ITS | Encounter Summary ---
Author Organization [facility] Address [address] [facility] [address] [address] [place] [address] Phone Care Team Providers Care Supervisor Electronics Processing Name Role Phone Yeny Elizabeth NP Primary Care Provider [phone] Adolfo Andrea MD Unavailable Yenny Parish MD Unavailable Dian Macias Primary Care Provider [phone] Encounter Details Date Type Department Care Team (Late st Contact Info) Description 01/21/2021 Procedure Pass [facility], Ct Scan - [address] [address] Social History Tobacco Use Types Packs/Day Years [...] on filedocumented in this encounter Care Teams Supervisor Electronics Processing Relationship Specialty Start Date End Date Yeny Elizabeth NP [address] [place] [address] PCP - General Nurse Practitioner 06/04/18 07/07/22 Dian Macias PA [address] [place] [address] [email or web address] PCP - General 07/08/22 Adolfo Andrea MD [address] [address] [email or web address] Primary Oncologist Hematology and Oncology 08/02/20 Yenny Parish MD [address] [place] [phone] [email or web address] Primary Oncologist Hematology and Oncology 05/09/21 documented as of this encounter Additional Source Comments The information contained in this document represents components of the legal health record. It is not the complete legal health record.[facility]
--- OUTSIDE RECORDS SUMMARY | 2025-07-24 19:49 | XMS_ITS | Encounter Summary ---
Author Organization [facility] Address [address] [place] [address] Care Team Providers Care Specimen Transporter Name Role Phone Rosa M Mason APRN Primary Care Provider + Encounter Details Date Type Department Care Team (Late st Contact Info) Description 06/28/2025 Scanned Document [facility] [address] [place] [id number] Salvador Tarango MD [address] [address] Social History Tobacco Use Types Packs/Day Years Used Date Smoking Tobacco: Never Assessed Comments Unknown Sex and Gender Information Value Date Recorded Sex Assigned at Not on file Legal Sex Female 1:08 PM EDT Gender Identity Not on file Sexual Orientation Not on file documented as of this encounter Plan of Treatment Not on file documented as of this encounter Visit Diagnoses Not on filedocumented in this encounter Care Teams Specimen Transporter Relationship Specialty Start Date End Date Rosa M Mason APRN [address] [place] [address] PCP - General Family Medicine 03/15/25 documented as of this encounter
--- OUTSIDE RECORDS SUMMARY | 2025-07-24 19:49 | XMS_ITS | Encounter Summary ---
Author Organization [facility] Address [address] [facility] [address] [place] [address] Phone Care Team Providers Care Print Designer Name Role Phone Yeny Elizabeth NP Primary Care Provider [phone] Adolfo Andrea MD Unavailable Yenny Parish MD Unavailable Dian Macias Primary Care Provider [phone] Encounter Details Date Type Department Care Team (Late st Contact Info) Description 07/10/2020 Procedure Pass [facility], Ct Scan - [address] [address] Social History Tobacco Use Types Packs/Day Years [...] on filedocumented in this encounter Care Teams Print Designer Relationship Specialty Start Date End Date Yeny Elizabeth NP [address] [place] [address] PCP - General Nurse Practitioner 06/04/18 07/07/22 Dian Macias PA [address] [place] [address] [email or web address] PCP - General 07/08/22 Adolfo Andrea MD [address] [address] [email or web address] Primary Oncologist Hematology and Oncology 08/02/20 Yenny Parish MD [address] [place] [phone] [email or web address] Primary Oncologist Hematology and Oncology 05/09/21 documented as of this encounter Additional Source Comments The information contained in this document represents components of the legal health record. It is not the complete legal health record.[facility]
--- OUTSIDE RECORDS SUMMARY | 2025-07-24 19:49 | XMS_ITS | Clinical Summary ---
Author Organization [facility] Address [address] [facility] [address] [place] [address] Phone Care Team Providers Care File Clerk Data Entry Name Role Phone Yenny Parish MD Unavailable Dian Macias Primary Care Provider [phone] Allergies Active Allergy Reactions Criticality Noted Date [...] l 06/16/2011 Influenza, Unspecified Formulation 06/18/2016, Novel [id number], Injectable 07/30/2009 Pneumococcal polysaccharide PPSV23 06/20/2020 Td, [...] EDT) SODIUM 137 133 - 146 mmol/L [facility] POTASSIUM 4.0 3.3 - 5.1 mmol/L [facility] CHLORIDE 101 96 - 108 mmol/L [facility] CO2 25 21 - 35 mmol/L [facility] BUN 10 6 - 19 mg/dL [facility] CREATININE 0.60 0.5 - 1.5 mg/dL [facility] GLUCOSE 139(H) 70 - 99 mg/dL [facility] ALBUMIN 4.5 3.9 - 4.8 g/dL [facility] TOTAL PROTEIN 7.1 6.5 - 8.0 g/dL [facility] CALCIUM 9.8 8.4 - 10.3 mg/dL [facility] ALKALINE PHOSPHATASE 94 39 - 117 U/L [facility] TOTAL BILIRUBIN <0.2 0.0 - 1.2 mg/dL [facility] AST 12 0 - 37 U/L [facility] ALT 12 0 - 40 U/L [facility] GLOBULIN 2.6 1 - 4.8 g/dL [facility] EGFR 94 >59 mL/min/1.7 3m2 [facility] Comment:Estimated glomerular filtration rate calculated using the CKD-EPI equation. ANION GAP 15 10 - 20 mmol/L [facility] Blood 10/25/2020 2:09 PM EDT 10/25/2020 2:15 PM EDT us Adolfo Andrea MD LAB BLOOD BKR ORDERABLES Final R esult [facility] [address] [place] [address] * ENDOSCOPY, COLON (06/08/2018 10:08 AM EDT) Narrative Transcriptions Frank Corado MD - 06/08/2018 10:08 AM EDT Patient Name: Linda Daley MD:: FRANK CORADO MD Procedure Date: 06/08/2018 10:08AM Date of : 1955 Age: 63 Admit Type: Outpatient Gender: Female Room: [place] [address] Referring MD: JUAN CARLOS VIELE, REGULATOR MECHANIC Exam Type: Colonoscopy Indications: High risk colon [...] monitored continuously. The Olympus adult variable colonoscope [id number] #2 was introduced through the anus and [...] 10:08 AM Procedure Code(s): --- Professional --- 55950, Colonoscopy, flexible; diagnostic, including collection of specimen(s) by brushing or washing, when performed (separateprocedure) --- Technical --- 37762, Colonoscopy, flexible; diagnostic, including collection of specimen(s) by brushing or washing, when performed (separateprocedure) Diagnosis Code(s): --- Professional --- Z86.010, Personal history of colonic polyps --- Technical --- Z86.010, Personal history of colonic polyps CPT copyright 2016 [employer]. All rights reserved. The codes documented in this report are preliminary and upon women's swim coach reviewmay be revised to meet current compliance requirements. [address] [place] [address] Juan Carlos Elizabeth NP GI PROCEDURE ORDERABLES Final Result from Last 3 Months or Most Recently Relevant to Health Maintenance Insurance [place] [address] MEDICARE SUPPLEMENT [facility] MEDICARE REPLACEMENT [facility] MEDICARE SUPPLEMENT [facility] MEDICARE REPLACEMENT [place] [address] MEDICARE SUPPLEMENT [facility] MEDICARE REPLACEMENT [facility] MEDICARE SUPPLEMENT [facility] MEDICARE REPLACEMENT MEDICARE SUPPLEMENT [facility] MEDICARE REPLACEMENT MEDICARE SUPPLEMENT [facility] MEDICARE REPLACEMENT MEDICARE SUPPLEMENT [facility] MEDICARE REPLACEMENT [place] [address] MEDICARE SUPPLEMENT [facility] MEDICARE REPLACEMENT [facility] MEDICARE SUPPLEMENT [facility] MEDICARE REPLACEMENT Member Subscriber Plan / Payer (Ef fective 2021-Present) Name:Linda Diehl Relation to Subscriber:Self Name:Linda Diehl Payer ID:[id number] (NAIC) Type:Medicare Address: [place] [id number] [place] [id number] Care Teams File Clerk Data Entry Relationship Specialty Start Date End Date Dian Macias PA [address] [place] [address] [email or web address] PCP - General 07/08/22 Yenny Parish MD [address] [place] [address] [email or web address] Primary Oncologist Hematology and Oncology 05/09/21 Additional Source Comments The information contained in this document represents components of the legal health record. It is not the complete legal health record.[facility]
--- OUTSIDE RECORDS SUMMARY | 2025-07-24 19:49 | XMS_ITS | Encounter Summary ---
Author Organization [facility] Address [address] [facility] [address] [place] [address] Phone Care Team Providers Care Senior Linux Systems Engineer Name Role Phone Yeny Elizabeth NP Primary Care Provider [phone] Adolfo Andrea MD Unavailable Yenny Parsih MD Unavailable Dian Macias Primary Care Provider [phone] Encounter Details Date Type Department Care Team (Late st Contact Info) Description 08/20/2020 Procedure Pass [facility] [address] [place] [address] Social History Tobacco Use Types Packs/Day Years [...] on filedocumented in this encounter Care Teams Senior Linux Systems Engineer Relationship Specialty Start Date End Date Yeny Elizabeth NP [address] [place] [address] [id number] PCP - General Nurse Practitioner 06/04/18 07/07/22 Dian Macias PA [address] [place] [address] [email or web address] PCP - General 07/08/22 Adolfo Andrea MD [address] [address] [email or web address] Primary Oncologist Hematology and Oncology 08/02/20 Yenny Parish MD [address] [place] [address] [email or web address] Primary Oncologist Hematology and Oncology 05/09/21 documented as of this encounter Additional Source Comments The information contained in this document represents components of the legal health record. It is not the complete legal health record.[facility]
--- OUTSIDE RECORDS SUMMARY | 2025-07-24 19:49 | XMS_ITS | Encounter Summary ---
Author Organization [facility] Address [address] [facility] [address] [place] [address] Phone Care Team Providers Care Brim Setter Name Role Phone Yeny Elizabeth NP Primary Care Provider [phone] Adolfo Andrea MD Unavailable Yenny Parish MD Unavailable Dian Macias Primary Care Provider [phone] Encounter Details Date Type Department Care Team (Late st Contact Info) Description 08/31/2020 Procedure Pass [facility], Ct Scan - [address] [address] Social History Tobacco Use Types Packs/Day Years [...] on filedocumented in this encounter Care Teams Brim Setter Relationship Specialty Start Date End Date Yeny Elizabeth NP [address] [place] [address] PCP - General Nurse Practitioner 06/04/18 07/07/22 Dian Macias PA [address] [place] [address] [email or web address] PCP - General 07/08/22 Adolfo Andrea MD [address] [address] [email or web address] Primary Oncologist Hematology and Oncology 08/02/20 Yenny Parish MD [address] [place] [address] [email or web address] Primary Oncologist Hematology and Oncology 05/09/21 documented as of this encounter Additional Source Comments The information contained in this document represents components of the legal health record. It is not the complete legal health record.[facility]
--- OUTSIDE RECORDS SUMMARY | 2025-07-24 19:49 | XMS_ITS | Encounter Summary ---
Author Organization [facility] Address [address] [address] [place] [address] Phone Care Team Providers Care Online Producer Name Role Phone Yeny Elizabeth NP Primary Care Provider [phone] Adolfo Andrea MD Unavailable Yenny Parish MD Unavailable Dian Macias Primary Care Provider [phone] Encounter Details Date Type Department Care Team (Late st Contact Info) Description 08/31/2020 Procedure Pass [facility], Ct Scan - [address] [address] Social History Tobacco Use Types Packs/Day Years [...] on filedocumented in this encounter Care Teams Online Producer Relationship Specialty Start Date End Date Yeny Elizabeth NP [address] [place] [address] PCP - General Nurse Practitioner 06/04/18 07/07/22 Dian Macias PA [address] [place] [address] [email or web address] PCP - General 07/08/22 Adolfo Andrea MD [address] [address] [email or web address] Primary Oncologist Hematology and Oncology 08/02/20 Yenny Parish MD [address] [place] [phone] [email or web address] Primary Oncologist Hematology and Oncology 05/09/21 documented as of this encounter Additional Source Comments The information contained in this document represents components of the legal health record. It is not the complete legal health record.[facility]
--- OUTSIDE RECORDS SUMMARY | 2025-07-24 19:49 | XMS_ITS | Encounter Summary ---
Author Organization [facility] Address [address] [facility] [address] [place] [address] Phone Care Team Providers Care Interactive Account Manager Name Role Phone Yeny Elizabeth NP Primary Care Provider [phone] Adolfo Andrea MD Unavailable Yenny Parish MD Unavailable Dian Macias Primary Care Provider [phone] Encounter Details Date Type Department Care Team (Late st Contact Info) Description 02/08/2021 Procedure Pass [facility], Ct Scan - [address] [address] Social History Tobacco Use Types Packs/Day Years [...] on filedocumented in this encounter Care Teams Interactive Account Manager Relationship Specialty Start Date End Date Yeny Elizabeth NP [address] [place] [address] PCP - General Nurse Practitioner 06/04/18 07/07/22 Dian Macias PA [address] [place] [address] [email or web address] PCP - General 07/08/22 Adolfo Andrea MD [address] [address] [email or web address] Primary Oncologist Hematology and Oncology 08/02/20 Yenny Parish MD [address] [place] [phone] [email or web address] Primary Oncologist Hematology and Oncology 05/09/21 documented as of this encounter Additional Source Comments The information contained in this document represents components of the legal health record. It is not the complete legal health record.[facility]
--- OUTSIDE RECORDS SUMMARY | 2025-07-24 19:49 | XMS_ITS | Encounter Summary ---
Author Organization [facility] Address [address] [facility] [address] [place] [address] Phone Care Team Providers Care Hack Driver Name Role Phone Yeny Elizabeth NP Primary Care Provider [phone] Adolfo Andrea MD Unavailable Yenny Parsih MD Unavailable Dian Macias Primary Care Provider Reason for Referral * MRI/CAT Scan - Closed Specialty Diagnoses / Procedures Referred By Contac t Referred To Contact Radiology Diagnoses Abdominal pain, unspecified abdominal location Procedures CT Abdomen/Pelvis Peyton Goodwin NP [address] [place] [address] Phone: tel: fax: [address] Phone: tel: Referral ID Status Reason Start Date Expiration Date Visits Re quested Visits Authorized [id number] Closed 06/21/2020 06/21/2021 1 1 Encounter Details Date Type Department Care Team (Late st Contact Info) Description 06/21/2020 Transcribe Orders [facility] Department [address] [place] [address] Peyton Goodwin NP [address] [place] [address] [phone] Abdominal pain, unspecified abdominal location (Primary Dx) [...] location documented in this encounter Care Teams Hack Driver Relationship Specialty Start Date End Date Yeny Elizabeth NP [address] [place] [address] PCP - General Nurse Practitioner 06/04/18 07/07/22 Dian Macias PA [address] [place] [address] [email or web address] PCP - General 07/08/22 Adolfo Andrea MD [address] [place] [phone] [email or web address] Primary Oncologist Hematology and Oncology 08/02/20 Yenny Parish MD [address] [place] [address] [email or web address] Primary Oncologist Hematology and Oncology 05/09/21 documented as of this encounter Additional Source Comments The information contained in this document represents components of the legal health record. It is not the complete legal health record.[facility]
--- OUTSIDE RECORDS SUMMARY | 2025-07-24 19:50 | XMS_ITS | Encounter Summary ---
Author Organization [facility] Address [address] [facility] [address] [place] [address] Phone Care Team Providers Care Multi Line Claims Adjuster Name Role Phone Yeny Elizabeth NP Primary Care Provider [phone] Adolfo Andrea MD Unavailable Yenny Parish MD Unavailable Dian Macias Primary Care Provider [phone] Encounter Details Date Type Department Care Team (Late st Contact Info) Description 06/08/2018 Procedure Pass [facility] Endoscopy Admitting Dept Virtual Department [address] [place] [address] Social History Tobacco Use Types Packs/Day Years [...] on filedocumented in this encounter Care Teams Multi Line Claims Adjuster Relationship Specialty Start Date End Date Yeny Elizabeth NP [address] [place] [address] PCP - General Nurse Practitioner 10/26/18 11/28/22 Dian Macias PA [address] [place] [address] [email or web address] PCP - General 07/08/22 Adolfo Andrea MD [address] [address] [email or web address] Primary Oncologist Hematology and Oncology 08/02/20 Yenny Parish MD [address] [place] [address] [email or web address] Primary Oncologist Hematology and Oncology 05/09/21 documented as of this encounter Additional Source Comments The information contained in this document represents components of the legal health record. It is not the complete legal health record.[facility]
--- OUTSIDE RECORDS SUMMARY | 2025-07-24 19:50 | XMS_ITS | Encounter Summary ---
Author Organization [facility] [place] [facility] Address [address] [facility] [address] [place] [address] Phone Care Team Providers Care Observation Nurse Name Role Phone Yeny Elizabeth NP Primary Care Provider [phone] Adolfo Andrea MD Unavailable Yenny Parish MD Unavailable Dian Macias Primary Care Provider [phone] Encounter Details Date Type Department Care Team (Late st Contact Info) Description 06/21/2020 Procedure Pass [facility], Ct Scan - [address] [address] Social History Tobacco Use Types Packs/Day Years [...] on filedocumented in this encounter Care Teams Observation Nurse Relationship Specialty Start Date End Date Yeny Elizabeth NP [address] [place] [address] PCP - General Nurse Practitioner 06/04/18 07/07/22 Dian Macias PA [address] [place] [address] [email or web address] PCP - General 07/08/22 Adolfo Andrea MD [address] [address] [email or web address] Primary Oncologist Hematology and Oncology 08/02/20 Yenny Parish MD [address] [place] [phone] [email or web address] Primary Oncologist Hematology and Oncology 05/09/21 documented as of this encounter Additional Source Comments The information contained in this document represents components of the legal health record. It is not the complete legal health record.[facility]
== END 2025-07-24 14:14 | disposition home or self-care (01) ==
LOC: HO.HPS 13:37
PROVIDERS: PCP Nurse Practitioner Family; Visit Provider Hospitalist
DX: J41.0 Simple chronic bronchitis (principal); R91.8 Other nonspecific abnormal finding of lung field; F17.200 Nicotine dependence, unspecified, uncomplicated; G47.33 Obstructive sleep apnea (adult) (pediatric); I10 Essential (primary) hypertension
CPT/HCPCS: 99214

== ENCOUNTER → 2025-07-24 13:36 | Outpatient (BNVA) | payer MEDICARE, MEDICAID, SELFPAY | PROVIDERS: PCP Nurse Practitioner Family; Visit Provider Hospitalist | DX: J41.0 Simple chronic bronchitis (principal); R91.8 Other nonspecific abnormal finding of lung field; F17.200 Nicotine dependence, unspecified, uncomplicated; G47.33 Obstructive sleep apnea (adult) (pediatric); I10 Essential (primary) hypertension | CPT/HCPCS: 99212 ==